=== PATIENT | female | born 1980 | race Caucasian/White ===

== ENCOUNTER → 2016-09-20 | Outpatient (CLI) | payer OTHER ==
[~2016-09-20] MED LIST: ABIL5TAB5 PO; ALBU17IN INH; ALEV220C2 PO; AMIT25TA PO; BACL10TA GT; BACL10TA2 PO; BENA25CA2 PO; BUPR150T5 PO; CELE40TA PO; CHLO125TA PO; CLAR1TAB2 PO; DILT120C79 PO; GABA-283 PO; GABA300C3 PO; GABA600T PO; HYZA100T2 PO; IMIT50TA PO; IMIT6INJ SC; INDE1CAP5 PO; K-TA10TA2 PO; LAMO10TA PO; LASI40TA PO; LEVO25TA5 PO; LORA10TA2 PO; LOSA100T PO; LOSA50TA20 PO; LOSA50TA21 PO; LYRI75CA PO; MOBI15TA PO; NORCOTAB PO; PROP60TA14 PO; REME15TA PO; ROBA750T4 PO; SYMB16INH INH; TRAZ50TA4 PO; TYLETAB14 PO; ZONI25CA2 PO; flexeril PO; vitamin d PO
--- NOTE | 2016-10-01 01:10 | ECWPNPC ---
PATIENT NAME: LILIAM SMART : 1980 GENDER: FEMALE VISIT DATE: 09/20/2016 DISCHARGE DATE: 09/20/16 1521 VISIT LOCKED DATE TIME: PHYSICIAN: JUAN GRIER RESOURCE: JUAN GRIER REASON FOR APPOINTMENT 1. FOLLOW UP-NECK HISTORY OF PRESENT ILLNESS HISTORY OF PRESENT ILLNESS: HERE FOR F/U.RATING PAIN VAS 9/10.PAIN LOCATED IN NECK AND RADIATES DOWN LEFT >RIGHT.REPORTS NO IMPROVEMENT W LYRICA 150MG TID.ROBAXIN 750MG QID HELPFUL . DENIES SIDE EFFECTS.REPORTS FLUID RETENTION LOWER EXT.PT RECENTLY CAUSED INCREASE IN PAIN SO THEY STOPPED IT AFTER 3 VISITS.HAS FAILED ON GABAPENTIN 300MG TID.DISCUSSED TRIAL OF CYMBALTA. PAIN THE PATIENT DESCRIBES THE PAIN... THE PATIENT DESCRIBES THE PAIN... THE PATIENT DESCRIBES THE PAIN... PAIN THE PATIENT DESCRIBES THE PAIN... THE PATIENT DESCRIBES THE PAIN... THE PATIENT DESCRIBES THE PAIN... FALL RISK SCREENING: SCREENING :NO FALLS IN THE PAST YEAR CURRENT MEDICATIONS TAKING ALBUTEROL SULFATE HFA 108 (90 BASE) MCG/ACT AEROSOL SOLUTION 2 PUFFS NEEDED INHALATION EVERY 4 HRS TAKING ALEVE 220 MG TABLET 1 TABLET NEEDED ORALLY EVERY 12 HRS TAKING AMITRIPTYLINE HCL 25 MG TABLET 1 TABLET AT BEDTIME ORALLY ONCE A DAY TAKING SYMBICORT 160-4.5 MCG/ACT AEROSOL 2 PUFFS INHALATION TWICE A DAY TAKING CHLORTHALIDONE 12.5 12.5MG TABLET ORAL ONCE DAILY TAKING DIPHENHYDRAMINE HCL 50 MG TABLET 1 TABLET AT BEDTIME NEEDED ORALLY ONCE A DAY TAKING LAMOTRIGINE 100 MG TABLET 1 TAB(S) IN AM & 150MG EVERY NOLAN ORALLY BID TAKING LEVOTHYROXINE SODIUM 75 MCG TABLET 1 TABLET ORALLY ONCE A DAY TAKING LOSARTAN POTASSIUM 50 MG TABLET 1 TAB(S) ORALLY TWICE A DAY TAKING LORATADINE 10 MG TABLET 1 TABLET ORALLY ONCE A DAY TAKING MELOXICAM 15 MG TABLET 1 TABLET ORALLY ONCE A DAY TAKING VITAMIN D 03526 U TABLET 1 TABLET ORALLY ONCE A WEEK TAKING ACETAMINOPHEN 500 MG TABLET 1-2 ORALLY Q8H PRN TAKING ROBAXIN-750 750 MG TABLET 1 TABLET ORALLY Q6H PRN PAIN MDD4 TAKING CYMBALTA 60 MG CAPSULE DELAYED RELEASE PARTICLES 1 CAPSULE ORALLY ONCE A DAY DISCONTINUED ZONISAMIDE 50 MG CAPSULE 1 CAPSULE ORALLY TWICE A DAY MEDICATION LIST REVIEWED AND RECONCILED WITH THE PATIENT PAST MEDICAL HISTORY PTSD HYPOTHYROID CHRONIC 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 NEW PATIENT PAIN DIARY TODAY'S VISITNOTES FROM 0-10, WHAT LEVEL IS YOUR PAIN TODAY?0 PAIN CLINIC PFS, CLERGY, PUBLIC HEALTH REFERRALS PFS REFERRAL NEEDED?NO CLERGY REFERRAL NEEDED?NO PUBLIC HEALTH REFERRAL NEEDED?NO WAS THE PROVIDER NOTIFIED OF ANY PERTINENT INFO?NO PFS REFERRAL NEEDED?NO CLERGY REFERRAL NEEDED?NO PUBLIC HEALTH REFERRAL NEEDED?NO WAS THE PROVIDER NOTIFIED OF ANY PERTINENT INFO?NO REVIEW OF SYSTEMS CONSTITUTIONAL: ANY CHANGE IN YOUR MEDICAL CONDITION? NO . CHILLS NO . FEVER NO . INFECTION: DO YOU HAVE NEW INFECTIONS? YES SINUS CONGESTION WITH PND X3-4 DAYS . DO YOU HAVE HISTORY OF MRSA? NO . MUSCULOSKELETAL: ANY NEW PATTERNS OF PAIN OR NUMBNESS? NO . GASTROENTEROLOGY: ANY NEW CHANGE IN BOWEL CONTROL? NO . GENITOURINARY: ANY NEW CHANGE IN BLADDER CONTROL? NO . IS THERE A CHANCE YOU COULD BE ? NO . HEMATOLOGY/LYMPH: DO YOU TAKE ANY BLOOD THINNERS? (FOR EXAMPLE- COUMADIN, PLAVIX, AGGRENOX, PLATEL, PRADAXA, OR XARELTO) NO . WHEN WAS YOUR LAST DOSE? DATE: TIME: . NEUROLOGY: HAVE YOU FALLEN IN THE PAST 6 MONTHS? NO . ANY NEW EXTREMITY NUMBNESS OR WEAKNESS? NO . CARDIOLOGY: DO YOU HAVE A PACEMAKER OR DEFIBRILLATOR? NO . RESPIRATORY: HAVE YOU BEEN SICK IN THE PAST WEEK? YES SINUS CONGESTION . FEVER YES . FLU LIKE SYMPTOMS? YES . COUGH BARKING, OCC. PRODUCTIVE , YELLOW SPUTUM . INTEGUMENTARY: DO YOU HAVE ANY RASHES OR OPEN SORES? NO . ALLERGIC/IMMUNO: ARE YOU ALLERGIC TO SHELLFISH OR IV DYE? NO . ANY NEW ALLERGIES? NO . PSYCHIATRIC: DO YOU HAVE THOUGHTS OF HURTING YOURSELF OR SOMEONE ELSE? NO . ARE YOU ABUSED, NEGLECTED, OR IN AN UNSAFE ENVIRONMENT? NO . ENDOCRINOLOGY: ARE YOU DIABETIC? NO . OTHER: DO YOU NEED ANY PRESCRIPTIONS? NO . IF YES, PLEASE LIST: ____ . ANY NEW PROBLEMS WITH YOUR MEDICATIONS? NO . WHEN DID YOU LAST EAT? ____ . WHEN DID YOU LAST DRINK? ____ . WHAT DID YOU LAST DRINK? ____ . NAME OF PERSON DRIVING YOU HOME? ____ . DO YOU HAVE ANY OTHER QUESTIONS OR CONCERNS NO . REVIEWED BY: PROVIDER: JAUN CRYSTAL . VITAL SIGNS WT 242.4 LBS, HT 65", BMI 40.33 INDEX, BP 143/89 MM HG, HR 79 /MIN, RR 22 /MIN, TEMP 99 F, OXYGEN SAT % 96, REVIEWED BY: AD. EXAMINATION GENERAL EXAMINATION: LUNGS:LUNG SOUNDS ARE CLEAR. HEART:HEART RATE REGULAR. MUSCULOSKELETAL:*. MUSCULOSKELETAL:*, MUSCLE STRENGTH TESTING 5/5 BILATERAL UPPER AND LOWER EXT., PAIN ELICITED WITH LIGHT PALPATION OVER CERVICAL SPINOUS PROCESSES AND ACROSS THE TRAPEZIUS MUSCLES BILATERALLY -MAINLY RIGHT SIDED. RESTRICTION OF ROM IS NOTED. . ASSESSMENTS CERVICALGIA - M54.2 (PRIMARY) GENERALIZED PAIN - R52 TREATMENT CERVICALGIA CONTINUE CYMBALTA CAPSULE DELAYED RELEASE PARTICLES, 60 MG, 1 CAPSULE, ORALLY, ONCE A DAY, 30 DAY(S), 30 CAPSULE, REFILLS 5 REFILL ROBAXIN-750 TABLET, 750 MG, 1 TABLET, ORALLY, Q6H PRN PAIN MDD4, 30 DAY(S), 120, REFILLS 5 PROCEDURE CODES FA211 ESTABILISHED PATIENT [facility] CHARGE FOLLOW UP 6 WEEKS ELECTRONICALLY SIGNED BY BONILLA ARRIAGA ON 09/30/2016 AT 01:33 PM EST DISCLAIMER : THIS IS A VISIT SUMMARY EXTRACTED FROM THE [employer] CHART. IT IS NOT A COPY OF THE [employer] PROGRESS NOTE. MTDD
== END ==
LOC: M PAIN 14:40
PROVIDERS: ATTEND Nurse Practitioner Family
DX: M54.2 Cervicalgia (principal); F43.10 Post-traumatic stress disorder, unspecified; E03.9 Hypothyroidism, unspecified; G43.909 Migraine, unspecified, not intractable, without status migrainosus; F32.9 Major depressive disorder, single episode, unspecified; F60.3 Borderline personality disorder; R00.0 Tachycardia, unspecified; Z88.0 Allergy status to penicillin; Z88.8 Allergy status to other drugs, medicaments and biological substances; Z79.1 Long term (current) use of non-steroidal anti-inflammatories (NSAID); Z79.899 Other long term (current) drug therapy

== ENCOUNTER → 2016-10-17 | Outpatient (REF) | payer OTHER | END | disposition home or self-care (01) | LOC: M SFHCWAGY 09:44 | PROVIDERS: ATTEND Nurse Practitioner Women's Health | DX: Z01.419 Encounter for gynecological examination (general) (routine) without abnormal findings (principal); Z11.51 Encounter for screening for human papillomavirus (HPV); R87.612 Low grade squamous intraepithelial lesion on cytologic smear of cervix (LGSIL) ==

== ENCOUNTER → 2016-11-01 | Outpatient (CLI) | payer OTHER ==
--- NOTE | 2016-11-08 00:37 | ECWPNPC ---
PATIENT NAME: LILIAM SMART : 1980 GENDER: FEMALE VISIT DATE: 11/01/2016 DISCHARGE DATE: 11/01/16 1517 VISIT LOCKED DATE TIME: PHYSICIAN: JUAN GRIER RESOURCE: JUAN GRIER REASON FOR APPOINTMENT 1. NECK HISTORY OF PRESENT ILLNESS HISTORY OF PRESENT ILLNESS: REPORTING INCREASE IN GENERALIZED BODY PAIN.RATING PAIN VAS 9/10.DESCRIBES PAIN ACHING AND BURNING.PAIN HAS ESCALATED THIS PAST WEEK.DENIES PRECIPITATING EVENT.DISCUSSED CONSERVATIVE TREATMENT.CURRENTLY USING CYMBALTA 60MG DAILY AND ROBAXIN. FALL RISK SCREENING: SCREENING :NO FALLS IN THE PAST YEAR CURRENT MEDICATIONS TAKING ALBUTEROL SULFATE HFA 108 (90 BASE) MCG/ACT AEROSOL SOLUTION 2 PUFFS NEEDED INHALATION EVERY 4 HRS TAKING ALEVE 220 MG TABLET 1 TABLET NEEDED ORALLY EVERY 12 HRS TAKING AMITRIPTYLINE HCL 25 MG TABLET 1 TABLET AT BEDTIME ORALLY ONCE A DAY TAKING SYMBICORT 160-4.5 MCG/ACT AEROSOL 2 PUFFS INHALATION TWICE A DAY TAKING CHLORTHALIDONE 12.5 12.5MG TABLET ORAL ONCE DAILY TAKING DIPHENHYDRAMINE HCL 50 MG TABLET 1 TABLET AT BEDTIME NEEDED ORALLY ONCE A DAY TAKING LAMOTRIGINE 100 MG TABLET 1 TABLET ORALLY BID TAKING LEVOTHYROXINE SODIUM 75 MCG TABLET 1 TABLET ORALLY ONCE A DAY TAKING LOSARTAN POTASSIUM 50 MG TABLET 1 TAB(S) ORALLY TWICE A DAY TAKING LORATADINE 10 MG TABLET 1 TABLET ORALLY ONCE A DAY TAKING MELOXICAM 15 MG TABLET 1 TABLET ORALLY ONCE A DAY TAKING VITAMIN D 98518 U TABLET 1 TABLET ORALLY ONCE A WEEK TAKING ACETAMINOPHEN 500 MG TABLET 1-2 ORALLY Q8H PRN TAKING CYMBALTA 60 MG CAPSULE DELAYED RELEASE PARTICLES 1 CAPSULE ORALLY ONCE A DAY TAKING ROBAXIN-750 750 MG TABLET 1 TABLET ORALLY Q6H PRN PAIN MDD4 MEDICATION LIST REVIEWED AND RECONCILED WITH THE PATIENT PAST MEDICAL HISTORY PTSD HYPOTHYROID CHRONIC 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 NEW PATIENT PAIN DIARY TODAY'S VISITNOTES FROM 0-10, WHAT LEVEL IS YOUR PAIN TODAY?0 PAIN CLINIC PFS, CLERGY, PUBLIC HEALTH REFERRALS PFS REFERRAL NEEDED?NO CLERGY REFERRAL NEEDED?NO PUBLIC HEALTH REFERRAL NEEDED?NO WAS THE PROVIDER NOTIFIED OF ANY PERTINENT INFO?NO PFS REFERRAL NEEDED?NO CLERGY REFERRAL NEEDED?NO PUBLIC HEALTH REFERRAL NEEDED?NO WAS THE PROVIDER NOTIFIED OF ANY PERTINENT INFO?NO REVIEW OF SYSTEMS CONSTITUTIONAL: ANY CHANGE IN YOUR MEDICAL CONDITION? NO . CHILLS NO . FEVER NO . INFECTION: DO YOU HAVE NEW INFECTIONS? NO . DO YOU HAVE HISTORY OF MRSA? NO . MUSCULOSKELETAL: ANY NEW PATTERNS OF PAIN OR NUMBNESS? NO . GASTROENTEROLOGY: ANY NEW CHANGE IN BOWEL CONTROL? NO . GENITOURINARY: ANY NEW CHANGE IN BLADDER CONTROL? NO . IS THERE A CHANCE YOU COULD BE ? NO . HEMATOLOGY/LYMPH: DO YOU TAKE ANY BLOOD THINNERS? (FOR EXAMPLE- COUMADIN, PLAVIX, AGGRENOX, PLATEL, PRADAXA, OR XARELTO) NO . WHEN WAS YOUR LAST DOSE? DATE: TIME: . NEUROLOGY: HAVE YOU FALLEN IN THE PAST 6 MONTHS? NO . ANY NEW EXTREMITY NUMBNESS OR WEAKNESS? NO . CARDIOLOGY: DO YOU HAVE A PACEMAKER OR DEFIBRILLATOR? NO . RESPIRATORY: HAVE YOU BEEN SICK IN THE PAST WEEK? NO . FEVER NO . FLU LIKE SYMPTOMS? NO . COUGH NO . INTEGUMENTARY: DO YOU HAVE ANY RASHES OR OPEN SORES? NO . ALLERGIC/IMMUNO: ARE YOU ALLERGIC TO SHELLFISH OR IV DYE? NO . ANY NEW ALLERGIES? NO . PSYCHIATRIC: DO YOU HAVE THOUGHTS OF HURTING YOURSELF OR SOMEONE ELSE? NO . ARE YOU ABUSED, NEGLECTED, OR IN AN UNSAFE ENVIRONMENT? NO . ENDOCRINOLOGY: ARE YOU DIABETIC? NO . OTHER: DO YOU NEED ANY PRESCRIPTIONS? YES CYMBALTA . IF YES, PLEASE LIST: ____ . ANY NEW PROBLEMS WITH YOUR MEDICATIONS? NO . WHEN DID YOU LAST EAT? ____ . WHEN DID YOU LAST DRINK? ____ . WHAT DID YOU LAST DRINK? ____ . NAME OF PERSON DRIVING YOU HOME? ____ . DO YOU HAVE ANY OTHER QUESTIONS OR CONCERNS YES PT NOTES INCREASED PAIN BOTH ARMS/ACROSS NECK X 4-5 DAYS. NOTES MIGRAINE LEFT EYE AREA TODAY. . REVIEWED BY: PROVIDER: JUAN CRYSTAL . VITAL SIGNS WT 241.4 LBS, HT 65", BMI 40.17 INDEX, BP 140/87 MM HG, HR 88 /MIN, RR 18 /MIN, TEMP 96.0 F, OXYGEN SAT % 98, NA INITIALS TL 1412, REVIEWED BY: MLF. EXAMINATION GENERAL EXAMINATION: LUNGS:LUNG SOUNDS ARE CLEAR. HEART:HEART RATE REGULAR. MUSCULOSKELETAL:*. MUSCULOSKELETAL:*, MUSCLE STRENGTH TESTING 5/5 BILATERAL UPPER AND LOWER EXT., PAIN ELICITED WITH LIGHT PALPATION OVER CERVICAL SPINOUS PROCESSES AND ACROSS THE TRAPEZIUS MUSCLES BILATERALLY -MAINLY RIGHT SIDED. RESTRICTION OF ROM IS NOTED. . ASSESSMENTS CERVICALGIA - M54.2 (PRIMARY) GENERALIZED PAIN - R52 TREATMENT CERVICALGIA INCREASE ALEVE TABLET, 220 MG, 2, ORALLY, EVERY 12 HRS, 30 DAY(S) REFILL CYMBALTA CAPSULE DELAYED RELEASE PARTICLES, 60 MG, 1 CAPSULE, ORALLY, ONCE A DAY, 30 DAY(S), 30 CAPSULE, REFILLS 5 CONTINUE ROBAXIN-750 TABLET, 750 MG, 1 TABLET, ORALLY, Q6H PRN PAIN MDD4 STOP MELOXICAM TABLET, 15 MG, 1 TABLET, ORALLY, ONCE A DAY START CYMBALTA CAPSULE DELAYED RELEASE PARTICLES, 30 MG, 1 CAPSULE, ORALLY, ONCE A DAY, 30 DAY(S), 30 CAPSULE, REFILLS 5 PROCEDURE CODES FA211 ESTABILISHED PATIENT [facility] CHARGE DISPOSITION & COMMUNICATION FOLLOW UP 4 WEEKS ELECTRONICALLY SIGNED BY BONILLA ARRIAGA ON 11/07/2016 AT 01:29 PM EST DISCLAIMER : THIS IS A VISIT SUMMARY EXTRACTED FROM THE [employer] CHART. IT IS NOT A COPY OF THE [employer] PROGRESS NOTE. OLIVIA
== END ==
LOC: M PAIN 14:20
PROVIDERS: ATTEND Nurse Practitioner Family
DX: Z09 Encounter for follow-up examination after completed treatment for conditions other than malignant neoplasm (principal); G89.29 Other chronic pain; M54.2 Cervicalgia; E03.9 Hypothyroidism, unspecified; G43.709 Chronic migraine without aura, not intractable, without status migrainosus; F32.9 Major depressive disorder, single episode, unspecified; F60.3 Borderline personality disorder; F43.10 Post-traumatic stress disorder, unspecified; Z88.0 Allergy status to penicillin; Z88.8 Allergy status to other drugs, medicaments and biological substances; Z79.1 Long term (current) use of non-steroidal anti-inflammatories (NSAID); Z79.899 Other long term (current) drug therapy; Z86.79 Personal history of other diseases of the circulatory system

== ENCOUNTER → 2016-11-18 | Outpatient (REF) | payer OTHER | LOC: M SFHCWAGY 12:08 | PROVIDERS: ATTEND Nurse Practitioner Women's Health | DX: R87.612 Low grade squamous intraepithelial lesion on cytologic smear of cervix (LGSIL) (principal) ==

== ENCOUNTER → 2017-01-02 | Outpatient (CLI) | payer OTHER ==
[~2017-01-02] MED LIST changes: +GABA-282 PO; -GABA300C3 PO
--- NOTE | 2017-01-14 00:24 | ECWPNPC ---
PATIENT NAME: LILIAM SMART : 1980 GENDER: FEMALE VISIT DATE: 01/02/2017 DISCHARGE DATE: 01/02/17 1426 VISIT LOCKED DATE TIME: PHYSICIAN: JUAN GRIER RESOURCE: JUAN GRIER REASON FOR APPOINTMENT 1. NECK HISTORY OF PRESENT ILLNESS HISTORY OF PRESENT ILLNESS: REPORTING INCREASE IN GENERALIZED BODY PAIN.RATING PAIN VAS 9/10.DESCRIBES PAIN ACHING AND BURNING.REPORTNG NEW ONSET OF LEFT UPPER BACK/SCAPULAR PAIN.THIS BEGAN APPROXIMATLEY 2 WEEKS AGO WITHOUT PRECIPITATING EVENT. INCREASE IN CYMBALTA FROM 60MG TO 90MG AT LAST VISIT DIDNT HELP WITH PAIN BUT FEELS IT IS HELPING MOOD.AMITRIPTYLINE 25MG HELPING AT NIGHT.ROBAXIN HASNT HELPED SINCE LEFT UPPER BACK HAS BEEN BOTHERNG HER.RATING PAIN VAS 9/10. PAIN THE PATIENT DESCRIBES THE PAIN... THE PATIENT DESCRIBES THE PAIN... FALL RISK SCREENING: SCREENING :NO FALLS IN THE PAST YEAR CURRENT MEDICATIONS TAKING ALBUTEROL SULFATE HFA 108 (90 BASE) MCG/ACT AEROSOL SOLUTION 2 PUFFS NEEDED INHALATION EVERY 4 HRS TAKING AMITRIPTYLINE HCL 25 MG TABLET 1 TABLET AT BEDTIME ORALLY ONCE A DAY TAKING SYMBICORT 160-4.5 MCG/ACT AEROSOL 2 PUFFS INHALATION TWICE A DAY TAKING CHLORTHALIDONE 12.5 12.5MG TABLET ORAL ONCE DAILY TAKING DIPHENHYDRAMINE HCL 50 MG TABLET 1 TABLET AT BEDTIME NEEDED ORALLY ONCE A DAY TAKING LAMOTRIGINE 100 MG TABLET 1 TABLET ORALLY BID TAKING LEVOTHYROXINE SODIUM 75 MCG TABLET 1 TABLET ORALLY ONCE A DAY TAKING LOSARTAN POTASSIUM 50 MG TABLET 1 TAB(S) ORALLY TWICE A DAY TAKING LORATADINE 10 MG TABLET 1 TABLET ORALLY ONCE A DAY TAKING VITAMIN D 74475 U TABLET 1 TABLET ORALLY ONCE A WEEK TAKING ACETAMINOPHEN 500 MG TABLET 1-2 ORALLY Q8H PRN TAKING CYMBALTA 60 MG CAPSULE DELAYED RELEASE PARTICLES 1 CAPSULE ORALLY ONCE A DAY IN A.M. TAKING CYMBALTA 30 MG CAPSULE DELAYED RELEASE PARTICLES 1 CAPSULE ORALLY ONCE A DAY IN P.M. TAKING ALEVE 220 MG TABLET 2 ORALLY EVERY 12 HRS TAKING ROBAXIN-750 750 MG TABLET 1 TABLET ORALLY Q6H PRN PAIN MDD4 MEDICATION LIST REVIEWED AND RECONCILED WITH THE PATIENT PAST MEDICAL HISTORY PTSD HYPOTHYROID CHRONIC 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 DEPRESSION BORDERLINE PERSONALITY DISORDER TACHYCARDIA ALLERGIES PREDNISON: SEVERE ANGER: ALLERGY PENICILLIN (FOR ALLERGIES USE ONLY): PT UNSURE: ALLERGY TRAZODONE HCL: SEVERE ANGER: ALLERGY SOCIAL HISTORY GENERAL: PAIN CLINIC PFS, CLERGY, PUBLIC HEALTH REFERRALS CLERGY REFERRAL NEEDED?NO WAS THE PROVIDER NOTIFIED OF ANY PERTINENT INFO?NO PFS REFERRAL NEEDED?NO PUBLIC HEALTH REFERRAL NEEDED?NO PATIENT: ____. REVIEW OF SYSTEMS CONSTITUTIONAL: ANY CHANGE IN YOUR MEDICAL CONDITION? NO . RECENT ILLNESS DENIES . CHILLS NO . FEVER NO . WEIGHT LOSS DENIES . INFECTION: DO YOU HAVE NEW INFECTIONS? NO . DO YOU HAVE HISTORY OF MRSA? NO . MUSCULOSKELETAL: ANY NEW PATTERNS OF PAIN OR NUMBNESS? YES, CONSTANT MUSCLE SPASMS AND POPPING SENSATION LEFT SHOULDER BLADE SINCE APPROX.12/02 . GASTROENTEROLOGY: ANY NEW CHANGE IN BOWEL CONTROL? NO . GENITOURINARY: ANY NEW CHANGE IN BLADDER CONTROL? NO . IS THERE A CHANCE YOU COULD BE ? NO . HEMATOLOGY/LYMPH: DO YOU TAKE ANY BLOOD THINNERS? (FOR EXAMPLE- COUMADIN, PLAVIX, AGGRENOX, PLATEL, PRADAXA, OR XARELTO) NO . WHEN WAS YOUR LAST DOSE? DATE: TIME: . NEUROLOGY: HAVE YOU FALLEN IN THE PAST 6 MONTHS? NO . ANY NEW EXTREMITY NUMBNESS OR WEAKNESS? NO . CARDIOLOGY: DO YOU HAVE A PACEMAKER OR DEFIBRILLATOR? NO . CHEST PAIN DENIES . SHORTNESS OF BREATH DENIES . RESPIRATORY: HAVE YOU BEEN SICK IN THE PAST WEEK? NO . FEVER NO . FLU LIKE SYMPTOMS? NO . COUGH NO, DENIES . SHORTNESS OF BREATH DENIES . INTEGUMENTARY: DO YOU HAVE ANY RASHES OR OPEN SORES? NO . ALLERGIC/IMMUNO: ARE YOU ALLERGIC TO SHELLFISH OR IV DYE? NO . ANY NEW ALLERGIES? NO . PSYCHIATRIC: DO YOU HAVE THOUGHTS OF HURTING YOURSELF OR SOMEONE ELSE? NO . ARE YOU ABUSED, NEGLECTED, OR IN AN UNSAFE ENVIRONMENT? NO . ENDOCRINOLOGY: ARE YOU DIABETIC? NO . OTHER: DO YOU NEED ANY PRESCRIPTIONS? YES . IF YES, PLEASE LIST: AMITRIPTYLINE . ANY NEW PROBLEMS WITH YOUR MEDICATIONS? NO . WHEN DID YOU LAST EAT? ____ . WHEN DID YOU LAST DRINK? ____ . WHAT DID YOU LAST DRINK? ____ . NAME OF PERSON DRIVING YOU HOME? ____ . DO YOU HAVE ANY OTHER QUESTIONS OR CONCERNS NO . REVIEWED BY: PROVIDER: JUAN CRYSTAL . VITAL SIGNS WT 252.4 LBS, HT 65", BMI 42.00 INDEX, BP 135/77 MM HG, HR 83 /MIN, RR 18 /MIN, TEMP 97.0 F, OXYGEN SAT % 95%, NA INITIALS SC 13:25, REVIEWED BY: AD. EXAMINATION GENERAL EXAMINATION: LUNGS:LUNG SOUNDS ARE CLEAR. HEART:HEART RATE REGULAR. MUSCULOSKELETAL:*, MUSCLE STRENGTH TESTING 5/5 BUE. TRIGGER POINTS:LEFT UPPER BACK/NECK AND SCAPULAR REGION. DIAGNOSTIC: . ASSESSMENTS CERVICALGIA - M54.2 (PRIMARY) GENERALIZED PAIN - R52 MYALGIA - M79.1 TREATMENT CERVICALGIA CONTINUE CYMBALTA CAPSULE DELAYED RELEASE PARTICLES, 60 MG, 1 CAPSULE, ORALLY, ONCE A DAY IN A.M. CONTINUE CYMBALTA CAPSULE DELAYED RELEASE PARTICLES, 30 MG, 1 CAPSULE, ORALLY, ONCE A DAY IN P.M. CONTINUE ROBAXIN-750 TABLET, 750 MG, 1 TABLET, ORALLY, Q6H PRN PAIN MDD4 START TRAMADOL HCL TABLET, 50 MG, 1, ORALLY, EVERY 6 HRS PRN MDD4, 30 DAY(S), 60, REFILLS 1 TRIGGER POINT 1-2 JUAN ENRIQUEZ 01/02/2017 2:08:25 PM > LEFT UPPER BACK/NECK/SCAPULAR NOTES: TRIGGER POINT INJECTION MATERIAL WAS PRINTED,TRIGGER POINT INJECTION: YOUR EXPERIENCE MATERIAL WAS PRINTED. GENERALIZED PAIN TRIGGER POINT 1-2 JUAN ENRIQUEZ 01/02/2017 2:08:25 PM > LEFT UPPER BACK/NECK/SCAPULAR MYALGIA TRIGGER POINT 1-2 JUAN ENRIQUEZ 01/02/2017 2:08:25 PM > LEFT UPPER BACK/NECK/SCAPULAR PREVENTIVE MEDICINE PAIN CLINIC TEACHING: MEDICATIONS PRINTED INFORMATION ON TRAMADOL GIVEN TO AND EXPLOINED TO PT. AND SHE VERBALIZED UNDERSTANDING. PROCEDURE TEACHING PRINTED INFORMATION ON TPI GIVEN TO AND PROCEDURE EXPLAINED TO PT. AND SHE VERBALIZED UNDERSTANDING. PRE-PROCEDURE INSTRUCTIONS REVIEWED WITH PT AND SHE VERBALIZED UNDERSTANDIONG. AD. PROCEDURE CODES FA211 ESTABILISHED PATIENT [facility] CHARGE DISPOSITION & COMMUNICATION FOLLOW UP 2WK POST (REASON: LEFT UPPER BACK/NECK/SCAPULAR) ELECTRONICALLY SIGNED BY BONILLA ARRIAGA ON 01/13/2017 AT 12:34 PM EDT DISCLAIMER : THIS IS A VISIT SUMMARY EXTRACTED FROM THE [employer] CHART. IT IS NOT A COPY OF THE [employer] PROGRESS NOTE. OLIVIA
== END ==
LOC: M PAIN 14:20
PROVIDERS: ATTEND Nurse Practitioner Family
DX: M54.2 Cervicalgia (principal); M79.1 Myalgia; F43.10 Post-traumatic stress disorder, unspecified; E03.9 Hypothyroidism, unspecified; G43.709 Chronic migraine without aura, not intractable, without status migrainosus; F32.9 Major depressive disorder, single episode, unspecified; F60.3 Borderline personality disorder; R00.0 Tachycardia, unspecified; Z79.1 Long term (current) use of non-steroidal anti-inflammatories (NSAID); Z79.899 Other long term (current) drug therapy; Z88.0 Allergy status to penicillin; Z88.8 Allergy status to other drugs, medicaments and biological substances

== ENCOUNTER → 2017-02-25 | Outpatient (CLI) | payer OTHER ==
[~2017-02-25] MED LIST changes: +BUPIVACAINE HCL 0.25% 10 ML VIAL As Ordered ONE; +BUPIVACAINE HCL 0.25% 30 ML VIAL As Ordered ONE; +TRIAMCINOLONE ACETONIDE SUSP 40 MG/ML VIAL (J3301) As Ordered ONE; +diazePAM 5 MG TAB As Ordered ONE; +oxyCODONE 5MG TAB As Ordered ONE
== END ==
LOC: M PAIN 08:30
PROVIDERS: ATTEND Anesthesiology
DX: G89.29 Other chronic pain (principal); M79.1 Myalgia; F43.10 Post-traumatic stress disorder, unspecified; E03.9 Hypothyroidism, unspecified; G43.709 Chronic migraine without aura, not intractable, without status migrainosus; F32.9 Major depressive disorder, single episode, unspecified; F60.3 Borderline personality disorder; R00.0 Tachycardia, unspecified; Z88.0 Allergy status to penicillin; Z88.8 Allergy status to other drugs, medicaments and biological substances; Z79.891 Long term (current) use of opiate analgesic; Z79.1 Long term (current) use of non-steroidal anti-inflammatories (NSAID); Z79.899 Other long term (current) drug therapy

== ENCOUNTER → 2017-03-24 | Outpatient (CLI) | payer MEDICAID, OTHER ==
[~2017-03-24] MED LIST changes: +ABIL1TAB11 PO; -ABIL5TAB5 PO; +BREO1INH INH; -BUPIVACAINE HCL 0.25% 10 ML VIAL As Ordered ONE; -BUPIVACAINE HCL 0.25% 30 ML VIAL As Ordered ONE; +CYMB60CA3 PO; +DULO30CA PO; -LOSA100T PO; +LOSA100T8 PO; -LOSA50TA21 PO; +LOSA50TA5 PO; +MECL-68 PO; +MOBI4TAB PO; +QUET5TAB PO; +TIZA4CAP3 PO; +TRAM50TA2 PO; +TRAZ50TA11 PO; -TRAZ50TA4 PO; -TRIAMCINOLONE ACETONIDE SUSP 40 MG/ML VIAL (J3301) As Ordered ONE; -diazePAM 5 MG TAB As Ordered ONE; -oxyCODONE 5MG TAB As Ordered ONE
--- NOTE | 2017-03-26 00:13 | ECWPNPC ---
PATIENT NAME: LILIAM SMART : 1980 GENDER: FEMALE VISIT DATE: 03/24/2017 DISCHARGE DATE: 03/24/17 1449 VISIT LOCKED DATE TIME: PHYSICIAN: JUAN GRIER RESOURCE: JUAN GRIER REASON FOR APPOINTMENT 1. NECK HISTORY OF PRESENT ILLNESS HISTORY OF PRESENT ILLNESS: HERE FOR POST PROCEDURE F/U.HAD TPI LEFT SHOULDER AND UPPER BACK 02-25-17.NO IMPROVEMENT POST PROCEDURE.RATING PAIN VAS 9/10.HAVING GENERALIZED UPPER BODY PAIN BUT ARMS SEEMS TO BE THE PROBLEM L>R.REPORTS SPASM TYPE PAIN. PAIN THE PATIENT DESCRIBES THE PAIN... FALL RISK SCREENING: SCREENING :NO FALLS IN THE PAST YEAR CURRENT MEDICATIONS TAKING ALBUTEROL SULFATE HFA 108 (90 BASE) MCG/ACT AEROSOL SOLUTION 2 PUFFS NEEDED INHALATION EVERY 4 HRS TAKING SYMBICORT 160-4.5 MCG/ACT AEROSOL 2 PUFFS INHALATION TWICE A DAY TAKING CHLORTHALIDONE 12.5 12.5MG TABLET ORAL ONCE DAILY TAKING LAMOTRIGINE 100 MG TABLET 1 TABLET ORALLY BID TAKING LEVOTHYROXINE SODIUM 75 MCG TABLET 1 TABLET ORALLY ONCE A DAY TAKING LOSARTAN POTASSIUM 50 MG TABLET 1 TAB(S) ORALLY TWICE A DAY TAKING LORATADINE 10 MG TABLET 1 TABLET ORALLY ONCE A DAY TAKING VITAMIN D 10287 U TABLET 1 TABLET ORALLY ONCE A WEEK TAKING ACETAMINOPHEN 500 MG TABLET 1-2 ORALLY Q8H PRN TAKING ALEVE 220 MG TABLET 2 ORALLY EVERY 12 HRS TAKING CYMBALTA 60 MG CAPSULE DELAYED RELEASE PARTICLES 1 CAPSULE ORALLY ONCE A DAY IN A.M. TAKING CYMBALTA 30 MG CAPSULE DELAYED RELEASE PARTICLES 1 CAPSULE ORALLY ONCE A DAY IN P.M. TAKING ROBAXIN-750 750 MG TABLET 1 TABLET ORALLY Q6H PRN PAIN MDD4 TAKING TRAMADOL HCL 50 MG TABLET 1 ORALLY EVERY 6 HRS PRN MDD4 TAKING AMITRIPTYLINE HCL 25 MG TABLET 1 TABLET AT BEDTIME ORALLY BEFORE BEDTIME NOT-TAKING DIPHENHYDRAMINE HCL 50 MG TABLET 1 TABLET AT BEDTIME NEEDED ORALLY ONCE A DAY, NOTES: 02-13-17 MEDICATION LIST REVIEWED AND RECONCILED WITH THE PATIENT PAST MEDICAL HISTORY PTSD HYPOTHYROID CHRONIC 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 BMI CARE GOAL FOLLOW-UP ABOVE NORMAL BMI FOLLOW-UPDIETARY NEEDS EDUCATION, GIVING ENCOURAGEMENT TO EXERCISE, WEIGHT MONITORING CAFFEINE CAFFEINE USE?YES HOW OFTEN AND HOW MUCH? 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 DIET: REGULAR. EXERCISE: WALKS 1/2 MILE DAILY. MARITAL STATUS: SINGLE. OTHERS AT HOME: CHILD. LANGUAGE MALTESE. LEARNING BARRIERS / SPECIAL NEEDS BARRIERS TO LEARNING?NO HEARING IMPAIRED?NO VISION IMPAIRED?YES :CORRECTIVE LENSES COGNITIVELY IMPAIRED?NO READINESS TO LEARN?YES LEARNING PREFERENCES?NO LEARNING CAPABILITIES PRESENT?YES EMOTIONAL BARRIERS?NO SPECIAL DEVICES?NO NEW PATIENT PAIN DIARY TODAY'S VISIT NOTES, FROM 0-10, WHAT LEVEL IS YOUR PAIN TODAY? 0. PAIN CLINIC PFS, CLERGY, PUBLIC HEALTH REFERRALS PFS REFERRAL NEEDED?NO CLERGY REFERRAL NEEDED?NO PUBLIC HEALTH REFERRAL NEEDED?NO HAS THE PATIENT BEEN EDUCATED REGARDING HIS/HER PLAN OF CARE?YES HAS THE PATIENT BEEN EDUCATED REGARDING PAIN, THE RISK FOR PAIN, THE IMPORTANCE OF EFFECTIVE PAIN MANAGEMENT, AND THE PAIN ASSESSMENT PROCESS?YES REVIEW OF SYSTEMS REVIEWED BY: PROVIDER: JUAN CRYSTAL . CONSTITUTIONAL: ANY CHANGE IN YOUR MEDICAL CONDITION? NO . CHILLS NO . FEVER NO . INFECTION: DO YOU HAVE NEW INFECTIONS? NO . DO YOU HAVE HISTORY OF MRSA? NO . MUSCULOSKELETAL: ANY NEW PATTERNS OF PAIN OR NUMBNESS? NO . GASTROENTEROLOGY: ANY NEW CHANGE IN BOWEL CONTROL? NO . GENITOURINARY: ANY NEW CHANGE IN BLADDER CONTROL? NO . IS THERE A CHANCE YOU COULD BE ? NO . HEMATOLOGY/LYMPH: DO YOU TAKE ANY BLOOD THINNERS? (FOR EXAMPLE- COUMADIN, PLAVIX, AGGRENOX, PLATEL, PRADAXA, OR XARELTO) NO . WHEN WAS YOUR LAST DOSE? DATE: TIME: . NEUROLOGY: HAVE YOU FALLEN IN THE PAST 6 MONTHS? NO . ANY NEW EXTREMITY NUMBNESS OR WEAKNESS? NO . CARDIOLOGY: DO YOU HAVE A PACEMAKER OR DEFIBRILLATOR? NO . RESPIRATORY: HAVE YOU BEEN SICK IN THE PAST WEEK? NO . FEVER NO . FLU LIKE SYMPTOMS? NO . COUGH NO . INTEGUMENTARY: DO YOU HAVE ANY RASHES OR OPEN SORES? NO . ALLERGIC/IMMUNO: ARE YOU ALLERGIC TO SHELLFISH OR IV DYE? NO . ANY NEW ALLERGIES? NO . PSYCHIATRIC: DO YOU HAVE THOUGHTS OF HURTING YOURSELF OR SOMEONE ELSE? NO . ARE YOU ABUSED, NEGLECTED, OR IN AN UNSAFE ENVIRONMENT? NO . ENDOCRINOLOGY: ARE YOU DIABETIC? NO . OTHER: DO YOU NEED ANY PRESCRIPTIONS? NO . IF YES, PLEASE LIST: ____ . ANY NEW PROBLEMS WITH YOUR MEDICATIONS? NO . WHEN DID YOU LAST EAT? ____ . WHEN DID YOU LAST DRINK? ____ . WHAT DID YOU LAST DRINK? ____ . NAME OF PERSON DRIVING YOU HOME? ____ . DO YOU HAVE ANY OTHER QUESTIONS OR CONCERNS NO . VITAL SIGNS WT 253 LBS, HT 65", BMI 42.10 INDEX, BP 157/100 MM HG, HR 84 /MIN, RR 18 /MIN, TEMP 97.6 F, OXYGEN SAT % 99%, REVIEWED BY: CS (DONE AT 1340). EXAMINATION GENERAL EXAMINATION: LUNGS:LUNG SOUNDS ARE CLEAR. HEART:HEART RATE REGULAR. MUSCULOSKELETAL:*, MUSCLE STRENGTH TESTING 5/5 BUE. TRIGGER POINTS:LEFT UPPER BACK/NECK AND SCAPULAR REGION.TENDERNESS OVER CERVICAL AXIS AND CERVICAL PARASPINAL. DIAGNOSTIC:MRI C-SPINE- 3-24-15- REVIEWED. ASSESSMENTS CERVICAL DISC DISPLACEMENT - M50.20 (PRIMARY) CERVICAL RADICULOPATHY - M54.12 TREATMENT CERVICAL DISC DISPLACEMENT CONTINUE CYMBALTA CAPSULE DELAYED RELEASE PARTICLES, 60 MG, 1 CAPSULE, ORALLY, ONCE A DAY IN A.M. CONTINUE CYMBALTA CAPSULE DELAYED RELEASE PARTICLES, 30 MG, 1 CAPSULE, ORALLY, ONCE A DAY IN P.M. STOP ROBAXIN-750 TABLET, 750 MG, 1 TABLET, ORALLY, Q6H PRN PAIN MDD4 REFILL TRAMADOL HCL TABLET, 50 MG, 1, ORALLY, EVERY 6 HRS PRN MDD4, 30 DAY(S), 60, REFILLS 1 CONTINUE AMITRIPTYLINE HCL TABLET, 25 MG, 1 TABLET AT BEDTIME, ORALLY, BEFORE BEDTIME START TIZANIDINE HCL TABLET, 4 MG, 1 TABLET NEEDED, ORALLY, THREE TIMES A DAY, 30 DAY(S), 45, REFILLS 1 NOTES: LINNETTE C4/5,CERVICAL EPIDURAL INJECTION: YOUR EXPERIENCE MATERIAL WAS PRINTED,CERVICAL EPIDURAL INJECTION MATERIAL WAS PRINTEDTIZANIDINE INFORMATION GIVEN. PREVENTIVE MEDICINE PAIN CLINIC TEACHING: MEDICATIONS TIZANIDINE INFORMATION GIVEN. QUESTIONS ANSWERED AND PATIENT VERBALIZES UNDERSTANDING.. PROCEDURE TEACHING PRE-PROCEDURE INFORMATION GIVEN. QUESTIONS ANSWERED AND VERBALIZES UNDERSTANDING.. PROCEDURE CODES FA211 ESTABILISHED PATIENT [facility] CHARGE DISPOSITION & COMMUNICATION FOLLOW UP 2WK POST (REASON: LINNETTE C4/5) ELECTRONICALLY SIGNED BY BONILLA ARRIAGA ON 03/25/2017 AT 10:58 AM EDT DISCLAIMER : THIS IS A VISIT SUMMARY EXTRACTED FROM THE [employer] CHART. IT IS NOT A COPY OF THE [employer] PROGRESS NOTE. OLIVIA
== END ==
LOC: M PAIN 14:20
PROVIDERS: ATTEND Nurse Practitioner Family
DX: M50.20 Other cervical disc displacement, unspecified cervical region (principal); M54.12 Radiculopathy, cervical region; Z79.891 Long term (current) use of opiate analgesic; Z79.899 Other long term (current) drug therapy; Z88.0 Allergy status to penicillin; Z88.8 Allergy status to other drugs, medicaments and biological substances

== ENCOUNTER → 2017-04-04 | Outpatient (CLI) | payer MEDICAID ==
[~2017-04-04] MED LIST changes: +ISOVUE-M 300 61% 15ML VIAL (Q9967) As Ordered ONE; +LIDOCAINE 1% SDV INJ 30 ML VIAL As Ordered ONE; +diazePAM 5 MG TAB As Ordered ONE; +methylPREDNISolone SUSP 40 MG/ML (DEPO-medrol) VIAL (J1030) As Ordered ONE; +oxyCODONE 5MG TAB As Ordered ONE
--- NOTE | 2017-04-04 15:31 | REP ---
Partial cervical spine series: Two views. History: Injection procedure for pain. 6 seconds of fluoroscopy time is reported. Findings: A sequence of two last image hold fluoro spot radiographs of the cervicothoracic junction document needle position and contrast injection associated with cervical epidural injection procedure. Signed by Trent Verde MD 04/04/2017 04:34 P
--- NOTE | 2017-04-13 23:30 | ECWPNPC ---
PATIENT NAME: LILIAM SMART : 1980 GENDER: FEMALE VISIT DATE: 04/04/2017 DISCHARGE DATE: 04/04/17 1342 VISIT LOCKED DATE TIME: PHYSICIAN: DOTTIE MCINTYRE RESOURCE: DOTTIE MCINTYRE REASON FOR APPOINTMENT 1. LINNETTE C4/5 HISTORY OF PRESENT ILLNESS HISTORY OF PRESENT ILLNESS: PAIN THE PATIENT DESCRIBES THE PAIN... FALL RISK SCREENING: SCREENING :NO FALLS IN THE PAST YEAR CURRENT MEDICATIONS TAKING ALBUTEROL SULFATE HFA 108 (90 BASE) MCG/ACT AEROSOL SOLUTION 2 PUFFS NEEDED INHALATION EVERY 4 HRS, NOTES: 04-03-17 TAKING SYMBICORT 160-4.5 MCG/ACT AEROSOL 2 PUFFS INHALATION TWICE A DAY, NOTES: 04-03-17 TAKING CHLORTHALIDONE 12.5 12.5MG TABLET ORAL ONCE DAILY, NOTES: 04-03-17 AM TAKING LAMOTRIGINE 100 MG TABLET 1 TABLET ORALLY BID, NOTES: 04-03-172099 TAKING LEVOTHYROXINE SODIUM 75 MCG TABLET 1 TABLET ORALLY ONCE A DAY, NOTES: 04-03-17 AM TAKING LOSARTAN POTASSIUM 50 MG TABLET 1 TAB(S) ORALLY TWICE A DAY, NOTES: 04-03-172099 TAKING LORATADINE 10 MG TABLET 1 TABLET ORALLY ONCE A DAY, NOTES: 04-03-17 AM TAKING VITAMIN D 53522 U TABLET 1 TABLET ORALLY ONCE A WEEK, NOTES: WEEK AGO TAKING ACETAMINOPHEN 500 MG TABLET 1-2 ORALLY Q8H PRN, NOTES: NONE TAKING ALEVE 220 MG TABLET 2 ORALLY EVERY 12 HRS, NOTES: 04-03-172099 TAKING CYMBALTA 60 MG CAPSULE DELAYED RELEASE PARTICLES 1 CAPSULE ORALLY ONCE A DAY IN A.M., NOTES: 04-03-17 AM TAKING CYMBALTA 30 MG CAPSULE DELAYED RELEASE PARTICLES 1 CAPSULE ORALLY ONCE A DAY IN P.M., NOTES: 04-03-172099 TAKING TRAMADOL HCL 50 MG TABLET 1 ORALLY EVERY 6 HRS PRN MDD4, NOTES: 04-03-172099 TAKING AMITRIPTYLINE HCL 25 MG TABLET 1 TABLET AT BEDTIME ORALLY BEFORE BEDTIME, NOTES: 04-03-172099 TAKING TIZANIDINE HCL 4 MG TABLET 1 TABLET NEEDED ORALLY THREE TIMES A DAY, NOTES: 04-03-172099 NOT-TAKING DIPHENHYDRAMINE HCL 50 MG TABLET 1 TABLET AT BEDTIME NEEDED ORALLY ONCE A DAY, NOTES: 02-13-17 MEDICATION LIST REVIEWED AND RECONCILED WITH THE PATIENT PAST MEDICAL HISTORY PTSD HYPOTHYROID CHRONIC 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 CONSTITUTIONAL: ANY CHANGE IN YOUR MEDICAL CONDITION? NO . CHILLS NO . FEVER NO . INFECTION: DO YOU HAVE NEW INFECTIONS? NO . DO YOU HAVE HISTORY OF MRSA? NO . MUSCULOSKELETAL: ANY NEW PATTERNS OF PAIN OR NUMBNESS? NO . GASTROENTEROLOGY: ANY NEW CHANGE IN BOWEL CONTROL? NO . GENITOURINARY: ANY NEW CHANGE IN BLADDER CONTROL? NO . IS THERE A CHANCE YOU COULD BE ? NO . HEMATOLOGY/LYMPH: DO YOU TAKE ANY BLOOD THINNERS? (FOR EXAMPLE- COUMADIN, PLAVIX, AGGRENOX, PLATEL, PRADAXA, OR XARELTO) NO . WHEN WAS YOUR LAST DOSE? DATE: TIME: . NEUROLOGY: HAVE YOU FALLEN IN THE PAST 6 MONTHS? NO . ANY NEW EXTREMITY NUMBNESS OR WEAKNESS? NO . CARDIOLOGY: DO YOU HAVE A PACEMAKER OR DEFIBRILLATOR? NO . RESPIRATORY: HAVE YOU BEEN SICK IN THE PAST WEEK? NO . FEVER NO . FLU LIKE SYMPTOMS? NO . COUGH NO . INTEGUMENTARY: DO YOU HAVE ANY RASHES OR OPEN SORES? NO . ALLERGIC/IMMUNO: ARE YOU ALLERGIC TO SHELLFISH OR IV DYE? NO . ANY NEW ALLERGIES? NO . PSYCHIATRIC: DO YOU HAVE THOUGHTS OF HURTING YOURSELF OR SOMEONE ELSE? NO . ARE YOU ABUSED, NEGLECTED, OR IN AN UNSAFE ENVIRONMENT? NO . ENDOCRINOLOGY: ARE YOU DIABETIC? NO . OTHER: DO YOU NEED ANY PRESCRIPTIONS? NO . IF YES, PLEASE LIST: ____ . ANY NEW PROBLEMS WITH YOUR MEDICATIONS? NO . WHEN DID YOU LAST EAT? 04-03-17 7:30 PM . WHEN DID YOU LAST DRINK? 04-04-17 8:45 . WHAT DID YOU LAST DRINK? WATER . NAME OF PERSON DRIVING YOU HOME? ABI . DO YOU HAVE ANY OTHER QUESTIONS OR CONCERNS NO . VITAL SIGNS WT 253.4 LBS, HT 65", BMI 42.16 INDEX, BP 150/97 MM HG, HR 71 /MIN, RR 16 /MIN, TEMP 97.7 F, OXYGEN SAT % 100%, NA INITIALS TL 1104, REVIEWED BY: CM. ASSESSMENTS CERVICAL DISC DISORDER WITH RADICULOPATHY, CERVICOTHORACIC REGION - M50.13 (PRIMARY) PROCEDURES PN CERVICAL EPIDURAL PRE PROCEDURE DIAGNOSIS CERVICAL DISC DISORDER WITH RADICULOPATHY POST PROCEDURE DIAGNOSIS CERVICAL DISC DISORDER WITH RADICULOPATHY PROCEDURE CERVICAL EPIDURAL STEROID INJECTION UNDER FLUOROSCOPIC GUIDANCE SURGEON DR. DOTTIE MCINTYRE DIRECTOR OF PRIMARY NONE ANESTHESIA LOCAL PRE PROCEDURE NOTE THE PATIENT HAS A HISTORY OF CHRONIC CERVICAL PAIN. I EVALUATE THE PATIENT AND REVIEWED THE CHART. I WENT OVER THE RISKS, ALTERNATIVES, AND BENEFITS ASSOCIATED WITH THIS PROCEDURE. THE PATIENT WOULD LIKE TO PROCEED AND GIVE CONSENT TO PERFORMED THE PROCEDURE. THE PATIENT DENIES UNEXPLAINABLE WEIGHT LOSS, FEVER, CHILLS, OR NEW CHANGES IN URINARY OR BOWEL CONTROL DESCRIPTION OF PROCEDURE THE PATIENT WAS BROUGHT TO THE PROCEDURE ROOM AND PLACED IN THE PRONE POSITION. THE CERVICOTHORACIC AREA WAS CLEANED WITH BETADINE SOLUTION AND DRAPED ASEPTICALLY. THE PROCEDURE WAS DONE UNDER STERILE CONDITIONS. I CHECKED LATERALITY AND THE LEVEL WHERE THE PROCEDURE WAS GOING TO BE PERFORMED WITH THE PATIENT AND THE SUPPORTING STAFF AT THE MOMENT OF THE TIME OUT IN THE PROCEDURE ROOM. UNDER FLUOROSCOPIC GUIDANCE, THE TARGET WAS SELECTED AT THE INTERLAMINAR LEVEL OF C7-T1. LIDOCAINE WAS USED TO NUMB THE SKIN AND THE SUBCUTANEOUS TISSUE BELOW IT. EPIDURAL TUOHY NEEDLE 17-GAUGE WAS ADVANCED UNDER FLUOROSCOPIC GUIDANCE AND FOLLOWING PATIENT FEEDBACK UNTIL THE EPIDURAL SPACE WAS REACHED 6 CM DEEP INTO THE SKIN BY THE LOSS OF RESISTANCE TECHNIQUE. ISOVUE M DYE 30%, 0.25 ML, WAS INJECTED SHOWING ADEQUATE SPREAD OF THE DYE. THEN, A SOLUTION OF 3 ML OF NORMAL SALINE WITH DEPO-MEDROL 60 MG WAS INJECTED SLOWLY FOLLOWING PATIENT FEEDBACK. THERE WAS NO EVIDENCE OF BLOOD, PARESTHESIA OR CEREBROSPINAL FLUID DURING THE PROCEDURE. THE PATIENT WAS SENT TO THE RECOVERY ROOM. THE PATIENT WAS MOVING THE EXTREMITIES AND DOING WELL. THERE WAS NO COMPLICATION DURING THE PROCEDURE. FLUOROSCOPY TIME WAS 6 SECONDS POST PROCEDURE NOTE THE PATIENT WILL BE SEEN IN A FOLLOW UP IN THE NEXT FEW WEEKS. INSTRUCTIONS WERE GIVEN, QUESTIONS WERE ANSWERED, AND THE PATIENT EXPRESSED UNDERSTANDING AND AGREES WITH THE PLAN. I, WILL CHAMPION, DOCUMENTED THE ABOVE INFORMATION ACTING A SCRIBE FOR DR. MCINTYRE. I HAVE REVIEWED THE ABOVE DOCUMENT, WRITTEN BY WILL SNYDER AND I VERIFY THAT IT IS ACCURATE DIAGNOSTIC IMAGING [facility] FLUORO GUIDE SPINE INJECTION (PAIN)[id number] PROCEDURE CODES 13342 CERVICAL/THORACIC W/ IMAGING 6045F RADXPS IN END [id number] PXD DISPOSITION & COMMUNICATION FOLLOW UP 3 WEEKS ELECTRONICALLY SIGNED BY DOTTIE MCINTYRE MD ON 04/13/2017 AT 08:01 PM EDT DISCLAIMER : THIS IS A VISIT SUMMARY EXTRACTED FROM THE [employer] CHART. IT IS NOT A COPY OF THE [employer] PROGRESS NOTE. MTDD
== END ==
LOC: M PAIN 11:00
PROVIDERS: ATTEND Anesthesiology
DX: G89.29 Other chronic pain (principal); M50.13 Cervical disc disorder with radiculopathy, cervicothoracic region; F43.10 Post-traumatic stress disorder, unspecified; G43.709 Chronic migraine without aura, not intractable, without status migrainosus; F32.9 Major depressive disorder, single episode, unspecified; F60.3 Borderline personality disorder; R00.0 Tachycardia, unspecified; Z88.0 Allergy status to penicillin; Z88.8 Allergy status to other drugs, medicaments and biological substances; Z79.891 Long term (current) use of opiate analgesic; Z79.1 Long term (current) use of non-steroidal anti-inflammatories (NSAID); Z79.899 Other long term (current) drug therapy
CPT/HCPCS: 62321; J1030; Q9967

== ENCOUNTER → 2017-04-18 | Outpatient (CLI) | payer OTHER, MEDICAID ==
[~2017-04-18] MED LIST changes: -ISOVUE-M 300 61% 15ML VIAL (Q9967) As Ordered ONE; -LIDOCAINE 1% SDV INJ 30 ML VIAL As Ordered ONE; -diazePAM 5 MG TAB As Ordered ONE; -methylPREDNISolone SUSP 40 MG/ML (DEPO-medrol) VIAL (J1030) As Ordered ONE; -oxyCODONE 5MG TAB As Ordered ONE
--- NOTE | 2017-05-21 02:58 | ECWPNPC ---
PATIENT NAME: LILIAM SMART : 1980 GENDER: FEMALE VISIT DATE: 04/18/2017 DISCHARGE DATE: 04/18/17 1433 VISIT LOCKED DATE TIME: PHYSICIAN: JUAN GRIER RESOURCE: JUAN GRIER REASON FOR APPOINTMENT 1. POST LINNETTE HISTORY OF PRESENT ILLNESS HISTORY OF PRESENT ILLNESS: HERE FOR POST PROCEDURE F/U.HAD LINNETTE ON 04-04-17.REPORTS NO IMPROVEMENT IN PAIN AND SOME AGGREVATION.RATING PAIN VAS 9/10.DESCTIBES PAINAS CONSTANT BURNING AND ACHING PAIN WITH PAIN EXTENDING INTO BOTH UPPER AND LOWER EXTREMITIES.FINDS CYMBALTA,TRAMADOL AND AMITRIPTYLINE INEFFECTIVE.DOES REPORT SOME IMPROVEMENT WITH TIZANIDINE.DISCUSSED MEDICATION AND TREATMENT OPTIONS. PAIN THE PATIENT DESCRIBES THE PAIN... FALL RISK SCREENING: SCREENING :NO FALLS IN THE PAST YEAR CURRENT MEDICATIONS TAKING ALBUTEROL SULFATE HFA 108 (90 BASE) MCG/ACT AEROSOL SOLUTION 2 PUFFS NEEDED INHALATION EVERY 4 HRS TAKING SYMBICORT 160-4.5 MCG/ACT AEROSOL 2 PUFFS INHALATION TWICE A DAY TAKING CHLORTHALIDONE 12.5 12.5MG TABLET ORAL ONCE DAILY TAKING LAMOTRIGINE 100 MG TABLET 1 TABLET ORALLY BID TAKING LEVOTHYROXINE SODIUM 75 MCG TABLET 1 TABLET ORALLY ONCE A DAY TAKING LOSARTAN POTASSIUM 50 MG TABLET 1 TAB(S) ORALLY TWICE A DAY TAKING LORATADINE 10 MG TABLET 1 TABLET ORALLY ONCE A DAY TAKING VITAMIN D 83942 U TABLET 1 TABLET ORALLY ONCE A WEEK TAKING ACETAMINOPHEN 500 MG TABLET 1-2 ORALLY Q8H PRN TAKING ALEVE 220 MG TABLET 2 ORALLY EVERY 12 HRS TAKING CYMBALTA 60 MG CAPSULE DELAYED RELEASE PARTICLES 1 CAPSULE ORALLY ONCE A DAY IN A.M. TAKING CYMBALTA 30 MG CAPSULE DELAYED RELEASE PARTICLES 1 CAPSULE ORALLY ONCE A DAY IN P.M. 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 CONSTITUTIONAL: ANY CHANGE IN YOUR MEDICAL CONDITION? NO . CHILLS NO . FEVER NO . INFECTION: DO YOU HAVE NEW INFECTIONS? NO . DO YOU HAVE HISTORY OF MRSA? NO . MUSCULOSKELETAL: ANY NEW PATTERNS OF PAIN OR NUMBNESS? NO . GASTROENTEROLOGY: ANY NEW CHANGE IN BOWEL CONTROL? NO . GENITOURINARY: ANY NEW CHANGE IN BLADDER CONTROL? NO . IS THERE A CHANCE YOU COULD BE ? NO . HEMATOLOGY/LYMPH: DO YOU TAKE ANY BLOOD THINNERS? (FOR EXAMPLE- COUMADIN, PLAVIX, AGGRENOX, PLATEL, PRADAXA, OR XARELTO) NO . WHEN WAS YOUR LAST DOSE? DATE: TIME: . NEUROLOGY: HAVE YOU FALLEN IN THE PAST 6 MONTHS? NO . ANY NEW EXTREMITY NUMBNESS OR WEAKNESS? NO . CARDIOLOGY: DO YOU HAVE A PACEMAKER OR DEFIBRILLATOR? NO . RESPIRATORY: HAVE YOU BEEN SICK IN THE PAST WEEK? NO . FEVER NO . FLU LIKE SYMPTOMS? NO . COUGH NO . INTEGUMENTARY: DO YOU HAVE ANY RASHES OR OPEN SORES? NO . ALLERGIC/IMMUNO: ARE YOU ALLERGIC TO SHELLFISH OR IV DYE? NO . ANY NEW ALLERGIES? NO . PSYCHIATRIC: DO YOU HAVE THOUGHTS OF HURTING YOURSELF OR SOMEONE ELSE? NO . ARE YOU ABUSED, NEGLECTED, OR IN AN UNSAFE ENVIRONMENT? NO . ENDOCRINOLOGY: ARE YOU DIABETIC? NO . OTHER: DO YOU NEED ANY PRESCRIPTIONS? NO . IF YES, PLEASE LIST: ____ . ANY NEW PROBLEMS WITH YOUR MEDICATIONS? NO . WHEN DID YOU LAST EAT? ____ . WHEN DID YOU LAST DRINK? ____ . WHAT DID YOU LAST DRINK? ____ . NAME OF PERSON DRIVING YOU HOME? ____ . DO YOU HAVE ANY OTHER QUESTIONS OR CONCERNS NO . VITAL SIGNS WT 249 LBS, HT 65", BMI 41.43 INDEX, BP 114/74 MM HG, HR 76 /MIN, RR 16 /MIN, TEMP 97.3 F, OXYGEN SAT % 98%, NA INITIALS SC 14:10, REVIEWED BY: SOL. EXAMINATION GENERAL EXAMINATION: LUNGS:LUNG SOUNDS ARE CLEAR. HEART:HEART RATE REGULAR. MUSCULOSKELETAL:*, MUSCLE STRENGTH TESTING 5/5 BUE. TRIGGER POINTS:LEFT UPPER BACK/NECK AND SCAPULAR REGION.TENDERNESS OVER CERVICAL AXIS AND CERVICAL PARASPINAL. DIAGNOSTIC:MRI C-SPINE- -24-15- REVIEWED. ASSESSMENTS CERVICALGIA - M54.2 (PRIMARY) GENERALIZED PAIN - R52 MYALGIA - M79.1 TREATMENT CERVICALGIA STOP CYMBALTA CAPSULE DELAYED RELEASE PARTICLES, 60 MG, 1 CAPSULE, ORALLY, ONCE A DAY IN A.M. STOP CYMBALTA CAPSULE DELAYED RELEASE PARTICLES, 30 MG, 1 CAPSULE, ORALLY, ONCE A DAY IN P.M. STOP TRAMADOL HCL TABLET, 50 MG, 1, ORALLY, EVERY 6 HRS PRN MDD4 STOP AMITRIPTYLINE HCL TABLET, 25 MG, 1 TABLET AT BEDTIME, ORALLY, BEFORE BEDTIME REFILL TIZANIDINE HCL TABLET, 4 MG, 1 TABLET NEEDED, ORALLY, THREE TIMES A DAY, 30 DAY(S), 45, REFILLS 1 PROCEDURE CODES FA211 ESTABILISHED PATIENT [facility] CHARGE DISPOSITION & COMMUNICATION FOLLOW UP 2 MONTHS ELECTRONICALLY SIGNED BY BONILLA ARRIAGA ON 05/20/2017 AT 07:46 PM EDT DISCLAIMER : THIS IS A VISIT SUMMARY EXTRACTED FROM THE [employer] CHART. IT IS NOT A COPY OF THE [employer] PROGRESS NOTE. OLIVIA
== END ==
LOC: M PAIN 14:20
PROVIDERS: ATTEND Nurse Practitioner Family
DX: G89.29 Other chronic pain (principal); M54.2 Cervicalgia; M79.1 Myalgia; F43.10 Post-traumatic stress disorder, unspecified; E03.9 Hypothyroidism, unspecified; G43.709 Chronic migraine without aura, not intractable, without status migrainosus; F32.9 Major depressive disorder, single episode, unspecified; F60.3 Borderline personality disorder; Z88.0 Allergy status to penicillin; Z88.8 Allergy status to other drugs, medicaments and biological substances; Z79.891 Long term (current) use of opiate analgesic; Z79.899 Other long term (current) drug therapy

== ENCOUNTER 2017-05-06 11:48 | Emergency (ER) | payer MEDICAID, OTHER ==
[~2017-05-06] VITALS: Ht 165.1 cm; Wt 119.5 kg
[~2017-05-06 11:48] MED LIST changes: -BREO1INH INH; -CYMB60CA3 PO; -DULO30CA PO; -MECL-68 PO; -MOBI4TAB PO; -QUET5TAB PO; -TIZA4CAP3 PO; -TRAM50TA2 PO
[2017-05-06] MEDS ORDERED: DULO30CA PO (11:58)
[2017-05-06] MEDS ORDERED: BREO1INH INH (11:58)
[2017-05-06] MEDS ORDERED: TIZA4CAP3 PO (11:58)
[2017-05-06] MEDS ORDERED: TRAM50TA2 PO (11:58)
[2017-05-06] MEDS ORDERED: CYMB60CA3 PO (11:58)
[2017-05-06] MEDS ORDERED: QUET5TAB PO (11:59)
[2017-05-06] MEDS ORDERED: KETOROLAC 60 MG/2 ML VIAL (J1885) IM ONE ×2 (12:15→12:30)
--- NOTE | 2017-05-06 12:41 | REP ---
Right ankle series: Four views. History: Trauma. Findings: Four views of the right ankle demonstrate intact ankle mortise. No fracture or subluxation is seen. Impression: No fracture noted. Signed by Trent Verde MD 05/06/2017 12:33 P
[2017-05-06] MEDS ORDERED: MOBI4TAB PO (12:54)
[2017-05-06 13:09] VITALS: BP 136/89
== END 2017-05-06 13:17 | disposition home or self-care (01) ==
LOC: M ED 11:48
DX: S93.401A Sprain of unspecified ligament of right ankle, initial encounter (principal); J45.909 Unspecified asthma, uncomplicated; I10 Essential (primary) hypertension; E03.9 Hypothyroidism, unspecified; F34.81 Disruptive mood dysregulation disorder; Z79.899 Other long term (current) drug therapy; Z79.51 Long term (current) use of inhaled steroids; Z88.8 Allergy status to other drugs, medicaments and biological substances; Z88.0 Allergy status to penicillin

== ENCOUNTER 2017-05-21 22:58 | Emergency (ER) | payer OTHER ==
[~2017-05-21] VITALS: Ht 165.1 cm; Wt 106.8 kg
[~2017-05-21 22:58] MED LIST changes: +BREO1INH INH; +CYMB60CA3 PO; +DULO30CA PO; +MOBI4TAB PO; +QUET5TAB PO; +TIZA4CAP3 PO; +TRAM50TA2 PO
[2017-05-22] MEDS ORDERED: MECLIZINE 25 MG TABLET PO ONE (00:30)
[2017-05-22] MEDS ORDERED: KETOROLAC 30 MG/ML VIAL (J1885) IV ONE (00:30)
[2017-05-22 00:47] LABS: BASO % 0.6 % (0.0-1.0); EOS # 0.3 K/mm3 (0.0-0.50); EOS % 3.2 % (0.0-3.0); LARGE UNSTAINED CELL # 0.2 K/mm3 (0.0-0.4); LARGE UNSTAINED CELL % 2.7 % (0.0-4.0); LYMPH # 2.6 K/mm3 (1.5-4.5); LYMPH % 32.1 % (24.0-44.0); MEAN CORPUSCULAR HEMOGLOBIN 27.8 pg (27.0-33.0); MEAN CORPUSCULAR HGB CONC 32.6 g/dl (32.0-36.5); MEAN CORPUSCULAR VOLUME 85.3 fl (80.0-96.0); MONO # 0.6 K/mm3 (0.0-0.8); MONO % 7.7 % (0.0-5.0); NEUTROPHILS # 4.4 K/mm3 (1.8-7.7); NEUTROPHILS % 53.7 % (36.0-66.0); PLATELET COUNT, AUTOMATED 269 k/mm3 (150-450); RED CELL DISTRIBUTION WIDTH 14.1 % (11.5-14.5); WHITE BLOOD COUNT 8.2 K/mm3 (4.0-10.0)
[2017-05-22 00:48] LABS: ANION GAP 7 MEQ/L (8-16); BLOOD UREA NITROGEN 14 MG/DL (7-18); CALCIUM LEVEL 9.5 MG/DL (8.5-10.1); CARBON DIOXIDE LEVEL 32 MEQ/L (21-32); CHLORIDE LEVEL 101 MEQ/L (98-107); CREATININE FOR GFR 0.77 MG/DL (0.55-1.02); GLOMERULAR FILTRATION RATE > 60.0 (>60); GLUCOSE, FASTING 94 MG/DL (70-105); POTASSIUM SERUM 3.2 MEQ/L (3.5-5.1); SODIUM LEVEL 140 MEQ/L (136-145)
[2017-05-22] MEDS ORDERED: NS 1,000 ML IV ONE ×2 (01:00→02:30)
--- NOTE | 2017-05-22 01:10 | REPUSA ---
CLINICAL HISTORY: Dizziness. TECHNIQUE: Multiple axial brain CT scan sections were obtained from base to vertex without contrast a dministration. COMMENTS: The study shows normal configuration of sella turcica. There are no intra or extra-axial collections. There is no mass effect or midline shift. There is no evidence of hematoma formation. No hydrocephal us is present. No abnormal calcifications are noted. No significant abnormalities are seen either in the posterior fossa or supratentorial compartment. The sinuses and mastoid air cells are patent. IMPRESSION: No evidence of acute intracranial pathology. Thank you for your kind referral of this patient.
[2017-05-22 04:15] VITALS: BP 162/100
[2017-05-22] MEDS ORDERED: MECL-68 PO (04:20)
== END 2017-05-22 04:32 | disposition home or self-care (01) ==
LOC: EDBD 22:58 → M ED 22:58
DX: R42 Dizziness and giddiness (principal); Z88.8 Allergy status to other drugs, medicaments and biological substances; Z88.0 Allergy status to penicillin; Z79.899 Other long term (current) drug therapy
CPT/HCPCS: 70450; 80048; 85025; 96374; 99285; J1885

== ENCOUNTER 2017-05-26 23:47 | Emergency (ER) | payer OTHER ==
[~2017-05-26] VITALS: Ht 165.1 cm; Wt 107.3 kg
[~2017-05-26 23:47] MED LIST changes: +MECL-68 PO
[2017-05-27 05:36] LABS: BASO % 0.7 % (0.0-1.0); EOS # 0.2 K/mm3 (0.0-0.50); EOS % 2.5 % (0.0-3.0); LARGE UNSTAINED CELL # 0.2 K/mm3 (0.0-0.4); LARGE UNSTAINED CELL % 2.7 % (0.0-4.0); LYMPH # 2.4 K/mm3 (1.5-4.5); LYMPH % 30.5 % (24.0-44.0); MEAN CORPUSCULAR HEMOGLOBIN 28.3 pg (27.0-33.0); MEAN CORPUSCULAR HGB CONC 32.6 g/dl (32.0-36.5); MEAN CORPUSCULAR VOLUME 86.7 fl (80.0-96.0); MONO # 0.7 K/mm3 (0.0-0.8); MONO % 8.7 % (0.0-5.0); NEUTROPHILS # 4.3 K/mm3 (1.8-7.7); NEUTROPHILS % 54.9 % (36.0-66.0); PLATELET COUNT, AUTOMATED 256 k/mm3 (150-450); RED CELL DISTRIBUTION WIDTH 14.5 % (11.5-14.5); WHITE BLOOD COUNT 7.7 K/mm3 (4.0-10.0)
[2017-05-27 05:51] LABS: ANION GAP 9 MEQ/L (8-16); BLOOD UREA NITROGEN 18 MG/DL (7-18); CARBON DIOXIDE LEVEL 28 MEQ/L (21-32); CHLORIDE LEVEL 105 MEQ/L (98-107); CREATININE FOR GFR 0.76 MG/DL (0.55-1.02); GLOMERULAR FILTRATION RATE > 60.0 (>60); GLUCOSE, FASTING 76 MG/DL (70-105); HCG, SERUM QUANTITATIVE < 1.0 MIU/ML; POTASSIUM SERUM 3.5 MEQ/L (3.5-5.1); SODIUM LEVEL 142 MEQ/L (136-145)
[2017-05-27 06:21] VITALS: BP_DIAS 93
[2017-05-27] MEDS ORDERED: dexameTHASONE 20 MG/5 ML VIAL (J1100) IV ONE (06:30)
[2017-05-27] MEDS ORDERED: ISOVUE-370 76% 100ML VIAL (Q9967) As Ordered ONE (06:49)
--- NOTE | 2017-05-27 07:50 | REPUSA ---
CLINICAL HISTORY: Dizziness. TECHNIQUE: Multiple axial brain CT scan sections were obtained from base to vertex with contrast admi nistration. COMMENTS: The study shows normal configuration of sella turcica. There are no intra or extra-axial collections. There is no mass effect or midline shift. There is no evidence of hematoma formation. No hydrocephal us is present. No abnormal calcifications are noted. No significant abnormalities are seen either in the posterior fossa or supratentorial compartment. The sinuses and mastoid air cells are patent. No abnormal enhancement is seen. IMPRESSION: No abnormal enhancement is seen. No evidence of acute intracranial pathology. Thank you for your kind referral of this patient.
--- NOTE | 2017-05-27 08:00 | REPUSA ---
CT INTERNAL AUDITORY CANALS CLINICAL HISTORY: Dizziness. TECHNIQUE: Multiple axial CT images were obtained through temporal bones with IV contrast material. COMMENTS: The auditory ossicles are within normal limits without evidence of erosion or destruction. There is n o evidence of erosion of the scutum to suggested cholesteatoma. The mastoid air cells and Korner's se ptum appear intact. There is no evidence of fluid. The auditus and antrum are within normal limits. IMPRESSION: Unremarkable exam. No abnormal enhancement is seen.
[2017-05-27 08:38] VITALS: BP_SYST 171
== END 2017-05-27 08:44 | disposition home or self-care (01) ==
LOC: M ED 23:47
DX: H83.03 Labyrinthitis, bilateral (principal); H93.13 Tinnitus, bilateral; J45.909 Unspecified asthma, uncomplicated; F32.9 Major depressive disorder, single episode, unspecified; Z88.0 Allergy status to penicillin; Z88.8 Allergy status to other drugs, medicaments and biological substances; Z79.899 Other long term (current) drug therapy; Z79.51 Long term (current) use of inhaled steroids
CPT/HCPCS: 36415; 70460; 70481; 80048; 84702; 85025; 96374; 99284; J1100; Q9967

== ENCOUNTER → 2017-06-18 | Outpatient (CLI) | payer MEDICAID, OTHER ==
--- NOTE | 2017-07-09 02:36 | ECWPNPC ---
PATIENT NAME: LILIAM SMART : 1980 GENDER: FEMALE VISIT DATE: 06/18/2017 DISCHARGE DATE: 06/18/17 1359 VISIT LOCKED DATE TIME: PHYSICIAN: UJAN GRIER RESOURCE: JUAN GRIER REASON FOR APPOINTMENT 1. NECK HISTORY OF PRESENT ILLNESS HISTORY OF PRESENT ILLNESS: FOR F/U OF CHRONIC GENERALIZED BACK PAIN.CHIEF AREA OF PAIN IS NECK AND UPPER BACK.SHE WAS TAKEN OFF ALL PAIN MEDICATION 2 MONTHS AGO SHE WAS REPORTING THAT NONE OF IT WORKED EXCEPT TIZANIDINE.STATES THAT TIZANIDINE 4MG HELPS LESSEN MUSCLE SPASMS IN UPPER AND MID BACK.REPORTING EPISODES OF DIZZINESS AND FALLING LATELY AND WAS SEEN IN ER.ENT TO EVALUATE TODAY.RATING PAIN VAS 8/10. PAIN THE PATIENT DESCRIBES THE PAIN... FALL RISK SCREENING: SCREENING :NO FALLS IN THE PAST YEAR CURRENT MEDICATIONS TAKING ALBUTEROL SULFATE HFA 108 (90 BASE) MCG/ACT AEROSOL SOLUTION 2 PUFFS NEEDED INHALATION EVERY 4 HRS TAKING CHLORTHALIDONE 12.5 12.5MG TABLET ORAL ONCE DAILY TAKING LAMOTRIGINE 100 MG TABLET 1 TABLET ORALLY BID TAKING LEVOTHYROXINE SODIUM 75 MCG TABLET 1 TABLET ORALLY ONCE A DAY TAKING LOSARTAN POTASSIUM 50 MG TABLET 1 TAB(S) ORALLY TWICE A DAY TAKING VITAMIN D 88259 U TABLET 1 TABLET ORALLY ONCE A WEEK TAKING ACETAMINOPHEN 500 MG TABLET 1-2 ORALLY Q8H PRN TAKING TIZANIDINE HCL 4 MG TABLET 1 TABLET NEEDED ORALLY THREE TIMES A DAY TAKING SEROQUEL 25 MG TABLET 1 TABLET ORALLY ONCE A DAY TAKING BREO ELLIPTA 100-25 MCG/INH AEROSOL POWDER BREATH ACTIVATED 1 PUFF INHALATION ONCE A DAY TAKING ZYRTEC ALLERGY 10 MG TABLET 1 TABLET ORALLY ONCE A DAY NOT-TAKING SYMBICORT 160-4.5 MCG/ACT AEROSOL 2 PUFFS INHALATION TWICE A DAY NOT-TAKING LORATADINE 10 MG TABLET 1 TABLET ORALLY ONCE A DAY NOT-TAKING ALEVE 220 MG TABLET 2 ORALLY EVERY 12 HRS NOT-TAKING DIPHENHYDRAMINE HCL 50 MG TABLET 1 TABLET AT BEDTIME NEEDED ORALLY ONCE A DAY, NOTES: 02-13-17 MEDICATION LIST REVIEWED AND RECONCILED WITH THE PATIENT PAST MEDICAL HISTORY PTSD HYPOTHYROID CHRONIC 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 BMI CARE GOAL FOLLOW-UP ABOVE NORMAL BMI FOLLOW-UPDIETARY NEEDS EDUCATION, GIVING ENCOURAGEMENT TO EXERCISE, WEIGHT MONITORING CAFFEINE CAFFEINE USE?YES HOW OFTEN AND HOW MUCH? 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 DIET: REGULAR. EXERCISE: WALKS 1/2 MILE DAILY. MARITAL STATUS: SINGLE. OTHERS AT HOME: CHILD. [employer] [id number] NONE LANGUAGE [place]. LEARNING BARRIERS / SPECIAL NEEDS CHANGE FROM LAST VISIT?NO BARRIERS TO LEARNING?NO HEARING IMPAIRED?NO VISION IMPAIRED?YES :CORRECTIVE LENSES COGNITIVELY IMPAIRED?NO READINESS TO LEARN?YES LEARNING PREFERENCES?NO LEARNING CAPABILITIES PRESENT?YES EMOTIONAL BARRIERS?NO SPECIAL DEVICES?NO WELFARE MANAGER NEEDED?NO NEW PATIENT PAIN DIARY TODAY'S VISIT NOTES, FROM 0-10, WHAT LEVEL IS YOUR PAIN TODAY? 0. PAIN CLINIC PFS, CLERGY, PUBLIC HEALTH REFERRALS PFS REFERRAL NEEDED?NO CLERGY REFERRAL NEEDED?NO PUBLIC HEALTH REFERRAL NEEDED?NO HAS THE PATIENT BEEN EDUCATED REGARDING HIS/HER PLAN OF CARE?YES HAS THE PATIENT BEEN EDUCATED REGARDING PAIN, THE RISK FOR PAIN, THE IMPORTANCE OF EFFECTIVE PAIN MANAGEMENT, AND THE PAIN ASSESSMENT PROCESS?YES REVIEW OF SYSTEMS REVIEWED BY: PROVIDER: JUAN CRYSTAL . CONSTITUTIONAL: ANY CHANGE IN YOUR MEDICAL CONDITION? 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 CHILLS NO . FEVER NO . INFECTION: DO YOU HAVE NEW INFECTIONS? NO . DO YOU HAVE HISTORY OF MRSA? NO . MUSCULOSKELETAL: ANY NEW PATTERNS OF PAIN OR NUMBNESS? NO . GASTROENTEROLOGY: ANY NEW CHANGE IN BOWEL CONTROL? NO . GENITOURINARY: ANY NEW CHANGE IN BLADDER CONTROL? NO . IS THERE A CHANCE YOU COULD BE ? NO . HEMATOLOGY/LYMPH: DO YOU TAKE ANY BLOOD THINNERS? (FOR EXAMPLE- COUMADIN, PLAVIX, AGGRENOX, PLATEL, PRADAXA, OR XARELTO) NO . WHEN WAS YOUR LAST DOSE? DATE: TIME: . NEUROLOGY: HAVE YOU FALLEN IN THE PAST 6 MONTHS? YES . ANY NEW EXTREMITY NUMBNESS OR WEAKNESS? NO . CARDIOLOGY: DO YOU HAVE A PACEMAKER OR DEFIBRILLATOR? NO . RESPIRATORY: HAVE YOU BEEN SICK IN THE PAST WEEK? YES, ALLERGIES . FEVER NO . FLU LIKE SYMPTOMS? NO . COUGH NO . INTEGUMENTARY: DO YOU HAVE ANY RASHES OR OPEN SORES? YES, RASH ON RIGHT ARM . ALLERGIC/IMMUNO: ARE YOU ALLERGIC TO SHELLFISH OR IV DYE? NO . ANY NEW ALLERGIES? NO . PSYCHIATRIC: DO YOU HAVE THOUGHTS OF HURTING YOURSELF OR SOMEONE ELSE? NO . ARE YOU ABUSED, NEGLECTED, OR IN AN UNSAFE ENVIRONMENT? NO . ENDOCRINOLOGY: ARE YOU DIABETIC? NO . OTHER: DO YOU NEED ANY PRESCRIPTIONS? NO . IF YES, PLEASE LIST: ____ . ANY NEW PROBLEMS WITH YOUR MEDICATIONS? NO . WHEN DID YOU LAST EAT? ____ . WHEN DID YOU LAST DRINK? ____ . WHAT DID YOU LAST DRINK? ____ . NAME OF PERSON DRIVING YOU HOME? ____ . DO YOU HAVE ANY OTHER QUESTIONS OR CONCERNS YES, EXTREME SORENESS IN LEGS AND FEET . VITAL SIGNS WT 256 LBS, HT 65", BMI 42.60 INDEX, BP 152/93 MM HG, HR 59 /MIN, RR 16 /MIN, TEMP 97.5 F, OXYGEN SAT % 100%, NA INITIALS AW 1326, REVIEWED BY: CS. EXAMINATION GENERAL EXAMINATION: LUNGS:LUNG SOUNDS ARE CLEAR. HEART:HEART RATE REGULAR. MUSCULOSKELETAL:*, MUSCLE STRENGTH TESTING 5/5 BUE. TRIGGER POINTS:LEFT UPPER BACK/NECK AND SCAPULAR REGION.TENDERNESS OVER CERVICAL AXIS AND CERVICAL PARASPINAL. DIAGNOSTIC:MRI C-SPINE- -24-15- REVIEWED. ASSESSMENTS CERVICALGIA - M54.2 (PRIMARY) FIBROMYALGIA - M79.7 TREATMENT CERVICALGIA CONTINUE TIZANIDINE HCL TABLET, 4 MG, 1 TABLET NEEDED, ORALLY, THREE TIMES A DAY OTHERS [facility] RE[facility]ON:NECK PAIN/ABNORMAL MRI C-SPINE/BLE WEAKNESS W FALLING PROCEDURE CODES FA211 ESTABILISHED PATIENT [facility] CHARGE DISPOSITION & COMMUNICATION FOLLOW UP 2 MONTHS ELECTRONICALLY SIGNED BY BONILLA ARRIAGA ON 07/07/2017 AT 07:44 AM EDT DISCLAIMER : THIS IS A VISIT SUMMARY EXTRACTED FROM THE [employer] CHART. IT IS NOT A COPY OF THE [employer] PROGRESS NOTE. MTDD
== END ==
LOC: M PAIN 13:00
PROVIDERS: ATTEND Nurse Practitioner Family
DX: G89.29 Other chronic pain (principal); M54.2 Cervicalgia; M79.7 Fibromyalgia; F43.10 Post-traumatic stress disorder, unspecified; E03.9 Hypothyroidism, unspecified; G43.709 Chronic migraine without aura, not intractable, without status migrainosus; F32.9 Major depressive disorder, single episode, unspecified; F60.3 Borderline personality disorder; R00.0 Tachycardia, unspecified; Z79.899 Other long term (current) drug therapy; Z88.0 Allergy status to penicillin; Z88.8 Allergy status to other drugs, medicaments and biological substances

== ENCOUNTER 2017-08-16 12:01 | Emergency (ER) | payer MEDICAID, OTHER ==
[~2017-08-16] VITALS: Ht 165.1 cm; Wt 113.7 kg
[2017-08-16 12:13] VITALS: BP 90/60
[2017-08-16] MEDS ORDERED: ZYRT10CA PO (12:17)
[2017-08-16] MEDS ORDERED: NORCO, ANEXSIA 5/325MG TABLET (HYDROcodone/ACETAMINOPHEN) PO ONE (13:00)
== END 2017-08-16 13:31 | disposition home or self-care (01) ==
LOC: M ED 12:01
DX: M19.011 Primary osteoarthritis, right shoulder (principal); I10 Essential (primary) hypertension; J45.909 Unspecified asthma, uncomplicated; F17.210 Nicotine dependence, cigarettes, uncomplicated; Z79.51 Long term (current) use of inhaled steroids; Z79.899 Other long term (current) drug therapy; Z88.8 Allergy status to other drugs, medicaments and biological substances; Z88.0 Allergy status to penicillin; Z87.820 Personal history of traumatic brain injury

== ENCOUNTER → 2017-08-18 | Outpatient (CLI) | payer OTHER ==
[~2017-08-18] MED LIST changes: +DULO1CAP; +KETO10TAB PO; +QUET5TAB; +TYLE500T78 PO; +ZYRT10CA PO
== END ==
LOC: M PAIN 13:15
PROVIDERS: ATTEND Nurse Practitioner Family
DX: M54.2 Cervicalgia (principal); M79.7 Fibromyalgia; G89.29 Other chronic pain; E03.9 Hypothyroidism, unspecified; Z79.899 Other long term (current) drug therapy; Z88.0 Allergy status to penicillin; Z88.8 Allergy status to other drugs, medicaments and biological substances

== ENCOUNTER 2017-08-22 07:50 | Emergency (ER) | payer OTHER ==
[~2017-08-22] VITALS: Ht 165.1 cm; Wt 107.3 kg
[~2017-08-22 07:50] MED LIST changes: -DULO1CAP; -KETO10TAB PO; -QUET5TAB; -TYLE500T78 PO
[2017-08-22] MEDS ORDERED: QUET5TAB (08:02)
[2017-08-22] MEDS ORDERED: KETO10TAB PO (08:02)
[2017-08-22] MEDS ORDERED: DULO1CAP (08:02)
[2017-08-22] MEDS ORDERED: TYLE500T78 PO (08:02)
--- NOTE | 2017-08-22 09:24 | REP ---
RIGHT SHOULDER, THREE VIEWS: HISTORY: Pain. There is no acute fracture or dislocation. The joint spaces are normal in appearance. IMPRESSION: There is no acute fracture or dislocation. Signed by Elmer Shi MD 08/22/2017 09:30 A
[2017-08-22] MEDS ORDERED: PERCOCET 5MG/325MG TAB PO ONE (10:00)
[2017-08-22 10:06] VITALS: BP 178/118
== END 2017-08-22 10:16 | disposition home or self-care (01) ==
LOC: M ED 07:50
DX: I10 Essential (primary) hypertension (principal); M54.2 Cervicalgia; G89.29 Other chronic pain; M25.511 Pain in right shoulder; J45.909 Unspecified asthma, uncomplicated; M51.9 Unspecified thoracic, thoracolumbar and lumbosacral intervertebral disc disorder; F41.9 Anxiety disorder, unspecified; F33.9 Major depressive disorder, recurrent, unspecified; Z98.890 Other specified postprocedural states; Z79.1 Long term (current) use of non-steroidal anti-inflammatories (NSAID); Z79.51 Long term (current) use of inhaled steroids; Z79.899 Other long term (current) drug therapy; Z88.8 Allergy status to other drugs, medicaments and biological substances; Z88.0 Allergy status to penicillin

== ENCOUNTER → 2017-08-25 | Outpatient (CLI) | payer OTHER ==
[~2017-08-25] MED LIST changes: +DULO1CAP; +KETO10TAB PO; +QUET5TAB; +TYLE500T78 PO
--- NOTE | 2017-08-25 23:16 | ECWPNPC ---
PATIENT NAME: LILIAM SMART : 1980 GENDER: FEMALE VISIT DATE: 08/25/2017 DISCHARGE DATE: 08/25/17 1539 VISIT LOCKED DATE TIME: PHYSICIAN: JUAN GRIER RESOURCE: JUAN GRIER REASON FOR APPOINTMENT 1. NECK HISTORY OF PRESENT ILLNESS HISTORY OF PRESENT ILLNESS: HAVING SEVERE NECK AND RIGHT ARM PAIN PAST TWO WEEKS.DENIES INJURY.SHE IS CRYING AND CRADLING HER RIGHT ARM.STATES PAIN HAS BEEN SO INTENSE SHE HASNT BEEN ABLE TO SLEEP.TORODOL PRESCRIBED LAST WEEK ISNT HELPING.SAW ORTHOPEDICS YESTRDAY AND HAD CERVICAL MRI.HAS OLLOW UP WITH ORTHO NEXT WEEK. PAIN THE PATIENT DESCRIBES THE PAIN... FALL RISK SCREENING: SCREENING :NO FALLS IN THE PAST YEAR CURRENT MEDICATIONS TAKING ALBUTEROL SULFATE HFA 108 (90 BASE) MCG/ACT AEROSOL SOLUTION 2 PUFFS NEEDED INHALATION EVERY 4 HRS TAKING CHLORTHALIDONE 12.5 12.5MG TABLET ORAL ONCE DAILY TAKING LAMOTRIGINE 100 MG TABLET 1 TABLET ORALLY BID TAKING LEVOTHYROXINE SODIUM 75 MCG TABLET 1 TABLET ORALLY ONCE A DAY TAKING LOSARTAN POTASSIUM 50 MG TABLET 1 TAB(S) ORALLY TWICE A DAY TAKING VITAMIN D 64658 U TABLET 1 TABLET ORALLY ONCE A WEEK TAKING ACETAMINOPHEN 500 MG TABLET 1-2 ORALLY Q8H PRN TAKING SEROQUEL 25 MG TABLET 1 TABLET ORALLY ONCE A DAY TAKING BREO ELLIPTA 100-25 MCG/INH AEROSOL POWDER BREATH ACTIVATED 1 PUFF INHALATION ONCE A DAY TAKING ZYRTEC ALLERGY 10 MG TABLET 1 TABLET ORALLY ONCE A DAY TAKING TIZANIDINE HCL 4 MG TABLET 1 TABLET NEEDED ORALLY THREE TIMES A DAY TAKING SYMBICORT 160-4.5 MCG/ACT AEROSOL 2 PUFFS INHALATION TWICE A DAY TAKING LORATADINE 10 MG TABLET 1 TABLET ORALLY ONCE A DAY TAKING ALEVE 220 MG TABLET 2 ORALLY EVERY 12 HRS TAKING DIPHENHYDRAMINE HCL 50 MG TABLET 1 TABLET AT BEDTIME NEEDED ORALLY ONCE A DAY, NOTES: 02-13-17 TAKING KETOROLAC TROMETHAMINE 10 MG TABLET 1 TABLET WITH FOOD OR MILK NEEDED ORALLY EVERY 6 HRS MEDICATION LIST REVIEWED AND RECONCILED WITH THE PATIENT PAST MEDICAL HISTORY PTSD HYPOTHYROID CHRONIC 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 BMI CARE GOAL FOLLOW-UP ABOVE NORMAL BMI FOLLOW-UPDIETARY NEEDS EDUCATION, GIVING ENCOURAGEMENT TO EXERCISE, WEIGHT MONITORING CAFFEINE CAFFEINE USE?YES HOW OFTEN AND HOW MUCH? 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 DIET: REGULAR. EXERCISE: WALKS 1/2 MILE DAILY. MARITAL STATUS: SINGLE. OTHERS AT HOME: CHILD. JAIN [id number] NONE LANGUAGE NEPALI. LEARNING BARRIERS / SPECIAL NEEDS CHANGE FROM LAST VISIT?NO BARRIERS TO LEARNING?NO HEARING IMPAIRED?NO VISION IMPAIRED?YES :CORRECTIVE LENSES COGNITIVELY IMPAIRED?NO READINESS TO LEARN?YES LEARNING PREFERENCES?NO LEARNING CAPABILITIES PRESENT?YES EMOTIONAL BARRIERS?NO SPECIAL DEVICES?NO SIGN WRITER LETTERER OR PAINTER NEEDED?NO NEW PATIENT PAIN DIARY TODAY'S VISIT NOTES, FROM 0-10, WHAT LEVEL IS YOUR PAIN TODAY? 0. PAIN CLINIC PFS, CLERGY, PUBLIC HEALTH REFERRALS PFS REFERRAL NEEDED?NO CLERGY REFERRAL NEEDED?NO PUBLIC HEALTH REFERRAL NEEDED?NO HAS THE PATIENT BEEN EDUCATED REGARDING HIS/HER PLAN OF CARE?YES HAS THE PATIENT BEEN EDUCATED REGARDING PAIN, THE RISK FOR PAIN, THE IMPORTANCE OF EFFECTIVE PAIN MANAGEMENT, AND THE PAIN ASSESSMENT PROCESS?YES REVIEW OF SYSTEMS REVIEWED BY: PROVIDER: JUAN CRYSTAL . CONSTITUTIONAL: ANY CHANGE IN YOUR MEDICAL CONDITION? YES, PT STATES SHE WENT TO [facility] ER LAST WEEK FOR SHOULDER PAIN X2. PT STATES SHE WAS TX'D WITH 1 PERCOSET AND SENT HOME THE FIRST ER VISIT, THE SECOND ER VISIT, PT STATES SHE WAS GIVEN NO PAIN MEDICINE AND SENT HOME . CHILLS NO . FEVER NO . INFECTION: DO YOU HAVE NEW INFECTIONS? NO . DO YOU HAVE HISTORY OF MRSA? NO . MUSCULOSKELETAL: ANY NEW PATTERNS OF PAIN OR NUMBNESS? YES, RIGHT SHOULDER, PT STATES STARTED 12 DAYS AGO, WORSE IN PAST 3 DAYS. PT STATES PAIN STARTED WHEN SHE WOKE UP IN BED. PT STATES SHE WAS STARTED ON KETOROLAC, BUT IT DIDN'T HELP . GASTROENTEROLOGY: ANY NEW CHANGE IN BOWEL CONTROL? NO . GENITOURINARY: ANY NEW CHANGE IN BLADDER CONTROL? NO . IS THERE A CHANCE YOU COULD BE ? NO . HEMATOLOGY/LYMPH: DO YOU TAKE ANY BLOOD THINNERS? (FOR EXAMPLE- COUMADIN, PLAVIX, AGGRENOX, PLATEL, PRADAXA, OR XARELTO) NO . WHEN WAS YOUR LAST DOSE? DATE: TIME: . NEUROLOGY: HAVE YOU FALLEN IN THE PAST 6 MONTHS? YES, PT STATES SHE FELL FROM LOSS OF BALANCE OVER THE SUMMER . ANY NEW EXTREMITY NUMBNESS OR WEAKNESS? NO . CARDIOLOGY: DO YOU HAVE A PACEMAKER OR DEFIBRILLATOR? NO . RESPIRATORY: HAVE YOU BEEN SICK IN THE PAST WEEK? NO . FEVER NO . FLU LIKE SYMPTOMS? NO . COUGH NO . INTEGUMENTARY: DO YOU HAVE ANY RASHES OR OPEN SORES? NO . ALLERGIC/IMMUNO: ARE YOU ALLERGIC TO SHELLFISH OR IV DYE? NO . ANY NEW ALLERGIES? NO . PSYCHIATRIC: DO YOU HAVE THOUGHTS OF HURTING YOURSELF OR SOMEONE ELSE? NO . ARE YOU ABUSED, NEGLECTED, OR IN AN UNSAFE ENVIRONMENT? NO . ENDOCRINOLOGY: ARE YOU DIABETIC? NO . OTHER: DO YOU NEED ANY PRESCRIPTIONS? NO . IF YES, PLEASE LIST: ____ . ANY NEW PROBLEMS WITH YOUR MEDICATIONS? NO . WHEN DID YOU LAST EAT? ____ . WHEN DID YOU LAST DRINK? ____ . WHAT DID YOU LAST DRINK? ____ . NAME OF PERSON DRIVING YOU HOME? ____ . DO YOU HAVE ANY OTHER QUESTIONS OR CONCERNS NO . VITAL SIGNS WT 251.0 LBS, HT 65", BMI 41.76 INDEX, BP 197/117 MM HG, REPEAT BP 194/110 MANUAL, HR 86 /MIN, RR 20 /MIN, TEMP 97.2 F, OXYGEN SAT % 98%, NA INITIALS TL 1500, REVIEWED BY: EMELEVATELaina BP 194/110 MANUAL, RN Loy AWARE -TL. EXAMINATION GENERAL EXAMINATION: GENERAL APPEARANCE:CRADLING RIGHT ARM,UNCOMFORTABLE. PSYCHCRYING. LUNGS:LUNG SOUNDS ARE CLEAR . HEART:HEART RATE REGULAR . MUSCULOSKELETAL:*, MUSCLE STRENGTH TESTING 5/5 LUE.RIGHT UPPER ARM TENDER TO LIGHT TOUCH. TRIGGER POINTS:RIGHT UPPER BACK/NECK AND SCAPULAR REGION.TENDERNESS OVER CERVICAL AXIS AND CERVICAL PARASPINAL . NEUROLOGIC EXAM:NEGATIVE ROMBERG.NORMAL SENSATION TO LIGHT TOUH UPPER AND LOWER EXTREMITIES. DIAGNOSTIC:MRI C-SPINE- 12-06-- REVIEWED . ASSESSMENTS CERVICALGIA - M54.2 (PRIMARY) FIBROMYALGIA - M79.7 TREATMENT CERVICALGIA STOP TIZANIDINE HCL TABLET, 4 MG, 1 TABLET NEEDED, ORALLY, THREE TIMES A DAY START OXYCODONE HCL TABLET, 5 MG, 1 TABLET NEEDED, ORALLY, ONE TO TWO TABS Q6H PRN FOR SEVERE PAIN MDD6, 30 DAY(S), 50, REFILLS 0 START SOMA TABLET, 350 MG, 1 TABLET NEEDED, ORALLY, 1 TAB TID MDD3, 10 DAY(S), 30, REFILLS 0 START COLACE CAPSULE, 100 MG, 1 CAPSULE NEEDED, ORALLY, BID, 30 DAY(S), 60 CAPSULE, REFILLS 0 NOTES: ISTOP REGISTRY REVIEWED [id number] AND DEMNOSTRATES COMPLLIANCE. PROCEDURE CODES FA211 ESTABILISHED PATIENT [facility] FACILITY CHARGE DISPOSITION & COMMUNICATION FOLLOW UP 10 DAY SQUEEZE IN (REASON: SIN RELEASE FOR MRI C-SPINE [facility]COG) ELECTRONICALLY SIGNED BY BONILLA ARRIAGA ON 08/25/2017 AT 03:46 PM EST DISCLAIMER : THIS IS A VISIT SUMMARY EXTRACTED FROM THE [employer] CHART. IT IS NOT A COPY OF THE [employer] PROGRESS NOTE. MTDD
== END ==
LOC: M PAIN 14:45
PROVIDERS: ATTEND Nurse Practitioner Family
DX: G89.29 Other chronic pain (principal); M54.2 Cervicalgia; M79.7 Fibromyalgia; M25.511 Pain in right shoulder; F43.10 Post-traumatic stress disorder, unspecified; E03.9 Hypothyroidism, unspecified; G43.909 Migraine, unspecified, not intractable, without status migrainosus; F32.9 Major depressive disorder, single episode, unspecified; Z88.0 Allergy status to penicillin; Z88.8 Allergy status to other drugs, medicaments and biological substances; Z79.1 Long term (current) use of non-steroidal anti-inflammatories (NSAID); Z79.899 Other long term (current) drug therapy

== ENCOUNTER → 2017-09-16 | Outpatient (CLI) | payer OTHER | LOC: M PAIN 13:00 | DX: M54.2 Cervicalgia (principal); M79.601 Pain in right arm; M79.7 Fibromyalgia; F43.10 Post-traumatic stress disorder, unspecified; E03.9 Hypothyroidism, unspecified; G43.909 Migraine, unspecified, not intractable, without status migrainosus; F32.9 Major depressive disorder, single episode, unspecified; Z88.0 Allergy status to penicillin; Z88.8 Allergy status to other drugs, medicaments and biological substances; Z79.1 Long term (current) use of non-steroidal anti-inflammatories (NSAID); Z79.891 Long term (current) use of opiate analgesic; Z79.899 Other long term (current) drug therapy | CPT/HCPCS: G0463 ==

== ENCOUNTER → 2017-10-14 | Outpatient (CLI) | payer OTHER | END | disposition home or self-care (01) | LOC: M PAIN 10:00 | DX: G89.29 Other chronic pain (principal); M50.20 Other cervical disc displacement, unspecified cervical region; M54.12 Radiculopathy, cervical region; F43.10 Post-traumatic stress disorder, unspecified; E03.9 Hypothyroidism, unspecified; G43.909 Migraine, unspecified, not intractable, without status migrainosus; F60.3 Borderline personality disorder; R00.0 Tachycardia, unspecified; Z79.899 Other long term (current) drug therapy; Z79.51 Long term (current) use of inhaled steroids; Z79.890 Hormone replacement therapy; Z88.0 Allergy status to penicillin; Z88.8 Allergy status to other drugs, medicaments and biological substances | CPT/HCPCS: G0463 ==

== ENCOUNTER → 2017-10-29 | Outpatient (CLI) | payer OTHER ==
[~2017-10-29] MED LIST changes: -ABIL1TAB11 PO; -ALBU17IN INH; -ALEV220C2 PO; -AMIT25TA PO; -BACL10TA GT; -BACL10TA2 PO; -BENA25CA2 PO; -BREO1INH INH; -BUPR150T5 PO; -CELE40TA PO; -CHLO125TA PO; -CLAR1TAB2 PO; -CYMB60CA3 PO; -DILT120C79 PO; -DULO1CAP; -DULO30CA PO; -GABA-282 PO; -GABA-283 PO; -GABA600T PO; -HYZA100T2 PO; -IMIT50TA PO; -IMIT6INJ SC; -INDE1CAP5 PO; +ISOVUE-M 300 61% 15ML VIAL (Q9967) As Ordered; -K-TA10TA2 PO; -KETO10TAB PO; -LAMO10TA PO; -LASI40TA PO; -LEVO25TA5 PO; +LIDOCAINE 1% SDV INJ 30 ML VIAL As Ordered; -LORA10TA2 PO; -LOSA100T8 PO; -LOSA50TA20 PO; -LOSA50TA5 PO; -LYRI75CA PO; -MECL-68 PO; -MOBI15TA PO; -MOBI4TAB PO; -NORCOTAB PO; -PROP60TA14 PO; -QUET5TAB; -QUET5TAB PO; -REME15TA PO; -ROBA750T4 PO; -SYMB16INH INH; -TIZA4CAP3 PO; -TRAM50TA2 PO; -TRAZ50TA11 PO; -TYLE500T78 PO; -TYLETAB14 PO; -ZONI25CA2 PO; -ZYRT10CA PO; +diazePAM 5 MG TAB As Ordered; -flexeril PO; +methylPREDNISolone SUSP 40 MG/ML (DEPO-medrol) VIAL (J1030) As Ordered; +oxyCODONE 5MG TAB As Ordered; -vitamin d PO
== END ==
LOC: M PAIN 08:45
DX: G89.29 Other chronic pain (principal); M50.13 Cervical disc disorder with radiculopathy, cervicothoracic region; F43.10 Post-traumatic stress disorder, unspecified; E03.9 Hypothyroidism, unspecified; G43.909 Migraine, unspecified, not intractable, without status migrainosus; F32.9 Major depressive disorder, single episode, unspecified; Z79.51 Long term (current) use of inhaled steroids; Z79.899 Other long term (current) drug therapy; Z88.0 Allergy status to penicillin; Z88.8 Allergy status to other drugs, medicaments and biological substances
CPT/HCPCS: J1030

== ENCOUNTER → 2017-11-12 | Outpatient (CLI) | payer OTHER | LOC: M PAIN 11:30 | DX: G89.29 Other chronic pain (principal); M50.20 Other cervical disc displacement, unspecified cervical region; M54.12 Radiculopathy, cervical region; F43.10 Post-traumatic stress disorder, unspecified; E03.9 Hypothyroidism, unspecified; G43.709 Chronic migraine without aura, not intractable, without status migrainosus; F32.9 Major depressive disorder, single episode, unspecified; F60.3 Borderline personality disorder; R00.0 Tachycardia, unspecified; Z79.1 Long term (current) use of non-steroidal anti-inflammatories (NSAID); Z79.899 Other long term (current) drug therapy; Z88.0 Allergy status to penicillin; Z88.8 Allergy status to other drugs, medicaments and biological substances | CPT/HCPCS: G0463 ==

== ENCOUNTER → 2017-11-19 | Outpatient (REF) | payer OTHER | LOC: M SFHCWAGY 13:35 | DX: Z12.4 Encounter for screening for malignant neoplasm of cervix (principal); R87.612 Low grade squamous intraepithelial lesion on cytologic smear of cervix (LGSIL) | CPT/HCPCS: 88142 ==

== ENCOUNTER → 2017-12-02 | Outpatient (CLI) | payer OTHER | LOC: M PAIN 10:45 | DX: G89.29 Other chronic pain (principal); M50.13 Cervical disc disorder with radiculopathy, cervicothoracic region; E03.9 Hypothyroidism, unspecified; I10 Essential (primary) hypertension; F32.9 Major depressive disorder, single episode, unspecified; Z79.891 Long term (current) use of opiate analgesic; Z79.899 Other long term (current) drug therapy; Z88.8 Allergy status to other drugs, medicaments and biological substances | CPT/HCPCS: J1030 ==

== ENCOUNTER → 2017-12-16 | Outpatient (CLI) | payer OTHER | LOC: M PAIN 10:15 | DX: M50.20 Other cervical disc displacement, unspecified cervical region (principal); M54.12 Radiculopathy, cervical region; F43.10 Post-traumatic stress disorder, unspecified; E03.9 Hypothyroidism, unspecified; G43.909 Migraine, unspecified, not intractable, without status migrainosus; F32.9 Major depressive disorder, single episode, unspecified; Z79.51 Long term (current) use of inhaled steroids; Z79.1 Long term (current) use of non-steroidal anti-inflammatories (NSAID); Z79.899 Other long term (current) drug therapy; Z88.0 Allergy status to penicillin; Z88.8 Allergy status to other drugs, medicaments and biological substances; Z91.81 History of falling | CPT/HCPCS: G0463 ==

== ENCOUNTER → 2018-01-19 | Outpatient (REF) | payer OTHER | LOC: M SFHCWAGY 15:27 | DX: R87.613 High grade squamous intraepithelial lesion on cytologic smear of cervix (HGSIL) (principal) ==

== ENCOUNTER 2018-02-07 18:07 | Emergency (ER) | payer OTHER ==
[2018-02-07] MEDS: PERCOCET 5MG/325MG TAB PO (18:45)
[2018-02-07] MEDS: IBUPROFEN 800 MG TAB PO (18:45)
== END 2018-02-07 18:56 | disposition home or self-care (01) ==
LOC: M ED 18:07
DX: M54.17 Radiculopathy, lumbosacral region (principal); E03.9 Hypothyroidism, unspecified; I10 Essential (primary) hypertension; J45.909 Unspecified asthma, uncomplicated; M08.90 Juvenile arthritis, unspecified, unspecified site; H81.09 Meniere's disease, unspecified ear; F39 Unspecified mood [affective] disorder; Z82.0 Family history of epilepsy and other diseases of the nervous system; Z88.0 Allergy status to penicillin; Z88.8 Allergy status to other drugs, medicaments and biological substances; Z79.899 Other long term (current) drug therapy
CPT/HCPCS: 99282

== ENCOUNTER → 2018-02-20 | Outpatient (CLI) | payer OTHER | LOC: M PAIN 10:30 | DX: M54.40 Lumbago with sciatica, unspecified side (principal); M50.20 Other cervical disc displacement, unspecified cervical region; G89.29 Other chronic pain; F43.10 Post-traumatic stress disorder, unspecified; E03.9 Hypothyroidism, unspecified; G43.909 Migraine, unspecified, not intractable, without status migrainosus; Z79.51 Long term (current) use of inhaled steroids; Z79.899 Other long term (current) drug therapy; Z88.0 Allergy status to penicillin; Z88.8 Allergy status to other drugs, medicaments and biological substances; Z86.79 Personal history of other diseases of the circulatory system | CPT/HCPCS: G0463 ==

== ENCOUNTER → 2018-03-04 | Outpatient (REF) | payer OTHER | LOC: M LAB REF 17:04 | DX: E03.9 Hypothyroidism, unspecified (principal) ==

== ENCOUNTER 2018-03-08 23:48 | Inpatient (IN) | payer OTHER, MEDICAID ==
[2018-03-09 01:54] LABS: HEMATOCRIT 31.4 % (36.0-47.0); HEMOGLOBIN 10.4 g/dl (12.0-15.5); MEAN CORPUSCULAR HEMOGLOBIN 28.8 pg (27.0-33.0); MEAN CORPUSCULAR HGB CONC 33.1 g/dl (32.0-36.5); PLATELET COUNT, AUTOMATED 222 10^3/uL (150-450); RED BLOOD COUNT 3.61 10^6/uL (4.00-5.40); RED CELL DISTRIBUTION WIDTH 13.9 % (11.5-14.5); WHITE BLOOD COUNT 7.6 10^3/uL (4.0-10.0)
[2018-03-09 02:04] LABS: CONTROL LINE HCG INT CTR LINE PRESENT; HCG, SERUM QUALITATIVE NEGATIVE (NEGATIVE)
[2018-03-09 02:18] LABS: ACETAMINOPHEN LEVEL < 2.0 UG/ML (10.0-30.0); ALBUMIN 3.4 GM/DL (3.2-5.2); ALBUMIN/GLOBULIN RATIO 1.17 (1.00-1.93); ALKALINE PHOSPHATASE 63 U/L (45-117); ALT/SGPT 19 U/L (12-78); ANION GAP 9 MEQ/L (8-16); AST/SGOT 15 U/L (7-37); BILIRUBIN,DIRECT 0.1 MG/DL (0.0-0.2); BILIRUBIN,TOTAL 0.3 MG/DL (0.2-1.0); BLOOD UREA NITROGEN 18 MG/DL (7-18); CALCIUM LEVEL 8.3 MG/DL (8.5-10.1); CARBON DIOXIDE LEVEL 28 MEQ/L (21-32); CHLORIDE LEVEL 103 MEQ/L (98-107); CREATININE FOR GFR 0.92 MG/DL (0.55-1.30); ETHYL ALCOHOL (ETHANOL) 0.003 % (0.000-0.010); GLOMERULAR FILTRATION RATE > 60.0 (>60); GLUCOSE, FASTING 90 MG/DL (70-100); POTASSIUM SERUM 2.8 MEQ/L (3.5-5.1); SALICYLATE LEVEL < 1.7 MG/DL (5.0-30.0); SODIUM LEVEL 140 MEQ/L (136-145); TOTAL PROTEIN 6.3 GM/DL (6.4-8.2)
[2018-03-09 02:28] LABS: AMPHETAMINES LEVEL URINE NEGATIVE (NEGATIVE); BARBITURATES URINE NEGATIVE (NEGATIVE); BENZODIAZEPINES URINE NEGATIVE (NEGATIVE); CANNABINOIDS URINE NEGATIVE (NEGATIVE); COCAINE METABOLITE URINE NEGATIVE (NEGATIVE); METHADONE URINE NEGATIVE (NEGATIVE); OPIATES URINE NEGATIVE (NEGATIVE); PHENCYCLIDINE URINE NEGATIVE (NEGATIVE)
[2018-03-09] MEDS: POTASSIUM CHLORIDE 10 MEQ SR TABLET PO ×2 (03:52→07:08)
[2018-03-09] MEDS: LEVOTHYROXINE 75MCG TABLET (0.075MG) PO ×2 (06:00→15:55)
[2018-03-09 06:30] LABS: ANION GAP 7 MEQ/L (8-16); BLOOD UREA NITROGEN 17 MG/DL (7-18); CALCIUM LEVEL 8.3 MG/DL (8.5-10.1); CARBON DIOXIDE LEVEL 30 MEQ/L (21-32); CHLORIDE LEVEL 103 MEQ/L (98-107); CREATININE FOR GFR 0.87 MG/DL (0.55-1.30); GLOMERULAR FILTRATION RATE > 60.0 (>60); GLUCOSE, FASTING 91 MG/DL (70-100); SODIUM LEVEL 140 MEQ/L (136-145)
[2018-03-09] MEDS: ACETAMINOPHEN TAB 650MG DOSE (2X325MG) PO (09:00)
[2018-03-09] MEDS: CETIRIZINE (ZyrTEC) 10 MG TAB PO ×2 (09:00→15:55)
[2018-03-09] MEDS ORDERED: MAALOX 30 ML SUSP *UDC PO (12:30)
[2018-03-09] MEDS ORDERED: MOM 30ML SUSPENSION UDC PO (12:30)
[2018-03-09] MEDS ORDERED: ALBUTEROL 90 MCG/ACT 8GM HFA INHALER INH ×2 (14:45→16:00)
[2018-03-09] MEDS: IBUPROFEN 400 MG TAB PO (15:56)
[2018-03-09] MEDS: DYAZIDE 37.5/25 CAP (TRIAM/HCTZ) PO (17:06)
[2018-03-09] MEDS: CHLORTHALIDONE 12.5MG PER 1/2 TABLET PO (17:06)
[2018-03-09] MEDS: tiZANidine 4 MG TAB PO (17:08)
[2018-03-09] MEDS: QUEtiapine FUMARATE 50 MG TAB PO (21:54)
[2018-03-09] MEDS: lamoTRIgine 100MG TAB PO (21:54)
[2018-03-09] MEDS: DULoxetine 30 MG CAP (CYMBALTA) PO (21:54)
[2018-03-09] MEDS: LOSARTAN 50 MG TAB PO (21:55)
[2018-03-10] MEDS: LEVOTHYROXINE 75MCG TABLET (0.075MG) PO (06:20)
[2018-03-10 07:43] LABS: HEMATOCRIT 35.9 % (36.0-47.0); HEMOGLOBIN 11.8 g/dl (12.0-15.5); MEAN CORPUSCULAR HGB CONC 32.9 g/dl (32.0-36.5); MEAN CORPUSCULAR VOLUME 88.2 fl (80.0-96.0); PLATELET COUNT, AUTOMATED 246 10^3/uL (150-450); RED BLOOD COUNT 4.07 10^6/uL (4.00-5.40); RED CELL DISTRIBUTION WIDTH 13.8 % (11.5-14.5); WHITE BLOOD COUNT 7.3 10^3/uL (4.0-10.0)
[2018-03-10 08:35] LABS: ALBUMIN 3.7 GM/DL (3.2-5.2); ALBUMIN/GLOBULIN RATIO 1.12 (1.00-1.93); ALKALINE PHOSPHATASE 68 U/L (45-117); ALT/SGPT 22 U/L (12-78); ANION GAP 9 MEQ/L (8-16); AST/SGOT 16 U/L (7-37); BILIRUBIN,TOTAL 0.4 MG/DL (0.2-1.0); BLOOD UREA NITROGEN 18 MG/DL (7-18); CALCIUM LEVEL 8.7 MG/DL (8.5-10.1); CARBON DIOXIDE LEVEL 30 MEQ/L (21-32); CHLORIDE LEVEL 101 MEQ/L (98-107); GLOMERULAR FILTRATION RATE > 60.0 (>60); GLUCOSE, FASTING 82 MG/DL (70-100); POTASSIUM SERUM 3.5 MEQ/L (3.5-5.1); SODIUM LEVEL 140 MEQ/L (136-145)
[2018-03-10] MEDS ORDERED: LOSARTAN 50 MG TAB PO (09:00)
[2018-03-10] MEDS: CHLORTHALIDONE 12.5MG PER 1/2 TABLET PO (09:03)
[2018-03-10] MEDS: DYAZIDE 37.5/25 CAP (TRIAM/HCTZ) PO (09:03)
[2018-03-10] MEDS: CETIRIZINE (ZyrTEC) 10 MG TAB PO (09:03)
[2018-03-10] MEDS: LOSARTAN 50 MG TAB PO ×2 (09:03→21:00)
[2018-03-10] MEDS: lamoTRIgine 100MG TAB PO ×2 (09:03→20:59)
[2018-03-10] MEDS: ADVAIR HFA 45/21MCG INHALER INH ×2 (09:04→21:00)
[2018-03-10] MEDS: IBUPROFEN 400 MG TAB PO ×2 (09:07→16:43)
[2018-03-10] MEDS: FLUoxetine 20 MG CAP PO (13:25)
[2018-03-10] MEDS: hydrOXYzine 50 MG TAB PO (13:26)
[2018-03-10] MEDS: QUEtiapine FUMARATE 50 MG TAB PO (21:00)
[2018-03-11] MEDS: LEVOTHYROXINE 75MCG TABLET (0.075MG) PO (06:13)
[2018-03-11 07:50] LABS: ANION GAP 8 MEQ/L (8-16); BLOOD UREA NITROGEN 18 MG/DL (7-18); CALCIUM LEVEL 8.6 MG/DL (8.5-10.1); CARBON DIOXIDE LEVEL 31 MEQ/L (21-32); CHLORIDE LEVEL 102 MEQ/L (98-107); CREATININE FOR GFR 0.86 MG/DL (0.55-1.30); GLOMERULAR FILTRATION RATE > 60.0 (>60); GLUCOSE, FASTING 95 MG/DL (70-100); POTASSIUM SERUM 3.5 MEQ/L (3.5-5.1); SODIUM LEVEL 141 MEQ/L (136-145)
[2018-03-11] MEDS: CETIRIZINE (ZyrTEC) 10 MG TAB PO (09:37)
[2018-03-11] MEDS: ADVAIR HFA 45/21MCG INHALER INH ×2 (09:39→21:51)
[2018-03-11] MEDS: IBUPROFEN 400 MG TAB PO ×2 (09:41→21:50)
[2018-03-11] MEDS: CHLORTHALIDONE 12.5MG PER 1/2 TABLET PO (09:41)
[2018-03-11] MEDS: LOSARTAN 50 MG TAB PO ×2 (09:41→21:50)
[2018-03-11] MEDS: DYAZIDE 37.5/25 CAP (TRIAM/HCTZ) PO (09:41)
[2018-03-11] MEDS: lamoTRIgine 100MG TAB PO ×2 (09:41→21:50)
[2018-03-11] MEDS: FLUoxetine 20 MG CAP PO (09:41)
[2018-03-11] MEDS: hydrOXYzine 50 MG TAB PO (12:03)
[2018-03-11] MEDS: QUEtiapine FUMARATE 50 MG TAB PO (21:51)
[2018-03-12] MEDS: LEVOTHYROXINE 75MCG TABLET (0.075MG) PO (06:07)
[2018-03-12] MEDS: DYAZIDE 37.5/25 CAP (TRIAM/HCTZ) PO (09:45)
[2018-03-12] MEDS: ADVAIR HFA 45/21MCG INHALER INH ×2 (09:45→21:39)
[2018-03-12] MEDS: LOSARTAN 50 MG TAB PO ×2 (09:46→21:43)
[2018-03-12] MEDS: IBUPROFEN 400 MG TAB PO ×2 (09:46→17:14)
[2018-03-12] MEDS: CETIRIZINE (ZyrTEC) 10 MG TAB PO (09:46)
[2018-03-12] MEDS: FLUoxetine 20 MG CAP PO (09:46)
[2018-03-12] MEDS: lamoTRIgine 100MG TAB PO ×2 (09:47→21:44)
[2018-03-12] MEDS: CHLORTHALIDONE 12.5MG PER 1/2 TABLET PO (09:47)
[2018-03-12] MEDS: hydrOXYzine 50 MG TAB PO (20:48)
[2018-03-12] MEDS: QUEtiapine FUMARATE 50 MG TAB PO (21:44)
[2018-03-13] MEDS: LEVOTHYROXINE 75MCG TABLET (0.075MG) PO (06:06)
[2018-03-13] MEDS: CETIRIZINE (ZyrTEC) 10 MG TAB PO (09:13)
[2018-03-13] MEDS: DYAZIDE 37.5/25 CAP (TRIAM/HCTZ) PO (09:14)
[2018-03-13] MEDS: lamoTRIgine 100MG TAB PO (09:14)
[2018-03-13] MEDS: CHLORTHALIDONE 12.5MG PER 1/2 TABLET PO (09:14)
[2018-03-13] MEDS: LOSARTAN 50 MG TAB PO (09:14)
[2018-03-13] MEDS: FLUoxetine 20 MG CAP PO (09:14)
[2018-03-13] MEDS: ADVAIR HFA 45/21MCG INHALER INH (09:14)
[2018-03-14] MEDS ORDERED: VITAMIN D 50,000 UNITS CAPSULE (ERGOCALCIFEROL 1.25MG) PO (09:00)
== END 2018-03-13 09:45 | disposition home or self-care (01) | DRG 755 ==
LOC: M ED 23:48 → M ED INP 03-09 10:39 → M PSY 03-09 11:45
DX: F43.10 Post-traumatic stress disorder, unspecified (principal); I10 Essential (primary) hypertension; R45.851 Suicidal ideations; F43.21 Adjustment disorder with depressed mood; Z79.899 Other long term (current) drug therapy; Z88.0 Allergy status to penicillin; Z88.8 Allergy status to other drugs, medicaments and biological substances; Z98.51 Tubal ligation status; R94.31 Abnormal electrocardiogram [ECG] [EKG]; M54.2 Cervicalgia; M54.5 Low back pain; J45.909 Unspecified asthma, uncomplicated; E03.9 Hypothyroidism, unspecified; E87.6 Hypokalemia; M25.519 Pain in unspecified shoulder

== ENCOUNTER → 2018-04-10 | Outpatient (CLI) | payer OTHER | LOC: M RAD 10:30 | DX: M54.40 Lumbago with sciatica, unspecified side (principal) | CPT/HCPCS: 72110 ==

== ENCOUNTER → 2018-04-14 | Outpatient (CLI) | payer OTHER | LOC: M PAIN 10:00 | DX: M54.40 Lumbago with sciatica, unspecified side (principal); M50.20 Other cervical disc displacement, unspecified cervical region; G89.29 Other chronic pain; F43.10 Post-traumatic stress disorder, unspecified; E03.9 Hypothyroidism, unspecified; G43.909 Migraine, unspecified, not intractable, without status migrainosus; F32.9 Major depressive disorder, single episode, unspecified; E66.01 Morbid (severe) obesity due to excess calories; Z68.41 Body mass index [BMI] 40.0-44.9, adult; Z79.51 Long term (current) use of inhaled steroids; Z79.899 Other long term (current) drug therapy; Z88.0 Allergy status to penicillin; Z88.8 Allergy status to other drugs, medicaments and biological substances; Z86.69 Personal history of other diseases of the nervous system and sense organs; Z86.79 Personal history of other diseases of the circulatory system | CPT/HCPCS: G0463 ==

== ENCOUNTER 2018-04-20 10:16 | Outpatient (RCR) | payer OTHER | END 2018-05-15 | LOC: M PT 10:16 | DX: Z51.89 Encounter for other specified aftercare (principal); M54.40 Lumbago with sciatica, unspecified side; M50.20 Other cervical disc displacement, unspecified cervical region | CPT/HCPCS: 97010 ==

== ENCOUNTER → 2018-05-26 | Outpatient (CLI) | payer OTHER | LOC: M PAIN 09:45 | DX: M54.40 Lumbago with sciatica, unspecified side (principal); M50.20 Other cervical disc displacement, unspecified cervical region; G89.29 Other chronic pain; F43.10 Post-traumatic stress disorder, unspecified; E03.9 Hypothyroidism, unspecified; G43.909 Migraine, unspecified, not intractable, without status migrainosus; F32.9 Major depressive disorder, single episode, unspecified; Z79.51 Long term (current) use of inhaled steroids; Z79.1 Long term (current) use of non-steroidal anti-inflammatories (NSAID); Z79.899 Other long term (current) drug therapy; Z88.0 Allergy status to penicillin; Z88.8 Allergy status to other drugs, medicaments and biological substances; Z86.69 Personal history of other diseases of the nervous system and sense organs | CPT/HCPCS: G0463 ==

== ENCOUNTER 2018-05-27 10:29 | Outpatient (RCR) | payer OTHER | END 2018-06-14 | LOC: M PT 10:29 | DX: Z51.89 Encounter for other specified aftercare (principal); M54.40 Lumbago with sciatica, unspecified side; M50.20 Other cervical disc displacement, unspecified cervical region | CPT/HCPCS: 97110 ==

== ENCOUNTER → 2018-06-03 | Outpatient (REF) | payer OTHER | LOC: M SMT 09:54 | DX: D06.0 Carcinoma in situ of endocervix (principal) ==

== ENCOUNTER → 2018-06-15 | Outpatient (REF) | payer OTHER | LOC: M LAB REF 18:12 | DX: E03.9 Hypothyroidism, unspecified (principal) ==

== ENCOUNTER → 2018-06-17 | Outpatient (REF) | payer OTHER ==
[2018-06-17 12:50] LABS: ANION GAP 11 MEQ/L (8-16); BLOOD UREA NITROGEN 17 MG/DL (7-18); CALCIUM LEVEL 8.8 MG/DL (8.5-10.1); CARBON DIOXIDE LEVEL 29 MEQ/L (21-32); CHLORIDE LEVEL 100 MEQ/L (98-107); CREATININE FOR GFR 1.02 MG/DL (0.55-1.30); GLOMERULAR FILTRATION RATE > 60.0 (>60); GLUCOSE, FASTING 90 MG/DL (70-100); POTASSIUM SERUM 2.9 MEQ/L (3.5-5.1); SODIUM LEVEL 140 MEQ/L (136-145)
== END ==
LOC: M LABDRAW1 11:24
DX: M23.352 Other meniscus derangements, posterior horn of lateral meniscus, left knee (principal); Z01.812 Encounter for preprocedural laboratory examination

== ENCOUNTER → 2018-06-23 | Outpatient (REF) | payer OTHER ==
[2018-06-23 17:56] LABS: POTASSIUM SERUM 3.3 MEQ/L (3.5-5.1)
== END ==
LOC: M LABDRAW1 17:13
DX: E87.6 Hypokalemia (principal)

== ENCOUNTER 2018-06-30 22:39 | Emergency (ER) | payer OTHER ==
[2018-07-01] MEDS: APIXABAN 5 MG TAB (ELIQUIS) PO (00:18)
== END 2018-07-01 00:22 | disposition home or self-care (01) ==
LOC: M ED 07-01 00:22
DX: I82.432 Acute embolism and thrombosis of left popliteal vein (principal); Z98.890 Other specified postprocedural states; I10 Essential (primary) hypertension; R51 Headache; E03.9 Hypothyroidism, unspecified; F41.9 Anxiety disorder, unspecified; F32.9 Major depressive disorder, single episode, unspecified; Z88.0 Allergy status to penicillin; Z88.8 Allergy status to other drugs, medicaments and biological substances; Z79.899 Other long term (current) drug therapy
CPT/HCPCS: 99283

== ENCOUNTER → 2018-06-30 | Outpatient (CLI) | payer OTHER | LOC: M RAD 14:37 | DX: R60.0 Localized edema (principal) | CPT/HCPCS: 93971 ==

== ENCOUNTER 2018-07-03 13:17 | Inpatient (IN) | payer OTHER ==
[2018-07-03 14:27] LABS: BASO % 0.5 % (0.0-1.0); EOS # 0.2 10^3/uL (0.0-0.50); EOS % 2.4 % (0.0-3.0); HEMATOCRIT 34.1 % (36.0-47.0); HEMOGLOBIN 11.2 g/dl (12.0-15.5); IMMATURE GRANULOCYTE % 0.3 % (0-3.0); LYMPH # 1.7 10^3/uL (1.5-4.5); LYMPH % 18.7 % (24.0-44.0); MEAN CORPUSCULAR HEMOGLOBIN 29.2 pg (27.0-33.0); MEAN CORPUSCULAR HGB CONC 32.8 g/dl (32.0-36.5); MONO # 0.7 10^3/uL (0.0-0.8); MONO % 7.8 % (0.0-5.0); NEUTROPHILS # 6.2 10^3/uL (1.8-7.7); NEUTROPHILS % 70.3 % (36.0-66.0); PLATELET COUNT, AUTOMATED 252 10^3/uL (150-450); RED BLOOD COUNT 3.83 10^6/uL (4.00-5.40); RED CELL DISTRIBUTION WIDTH 13.9 % (11.5-14.5); WHITE BLOOD COUNT 8.8 10^3/uL (4.0-10.0)
[2018-07-03 14:39] LABS: INR 1.27; PROTHROMBIN TIME 16.1 SECONDS (12.1-14.4)
[2018-07-03 14:40] LABS: PARTIAL THROMBOPLASTIN TIME 40.7 SECONDS (25.4-37.6)
[2018-07-03 14:50] LABS: LACTIC ACID SEPSIS PROTOCOL 1.1 MMOL/L (0.4-2.0)
[2018-07-03 14:51] LABS: ALBUMIN 3.8 GM/DL (3.2-5.2); ALBUMIN/GLOBULIN RATIO 1.15 (1.00-1.93); ALKALINE PHOSPHATASE 78 U/L (45-117); ALT/SGPT 16 U/L (12-78); ANION GAP 9 MEQ/L (8-16); AST/SGOT 11 U/L (7-37); BILIRUBIN,DIRECT 0.1 MG/DL (0.0-0.2); BILIRUBIN,TOTAL 0.4 MG/DL (0.2-1.0); BLOOD UREA NITROGEN 20 MG/DL (7-18); C REACTIVE PROTEIN QUANTITATIV 1.31 MG/DL (0.00-0.30); CALCIUM LEVEL 9.4 MG/DL (8.5-10.1); CARBON DIOXIDE LEVEL 27 MEQ/L (21-32); CHLORIDE LEVEL 106 MEQ/L (98-107); CK-MB VALUE MASS < 1.0 NG/ML (<3.6); CPK CREATINE PHOSPHOKINASE 98 U/L (26-192); CREATININE FOR GFR 1.01 MG/DL (0.55-1.30); GLOMERULAR FILTRATION RATE > 60.0 (>60); GLUCOSE, FASTING 97 MG/DL (70-100); MB/CK RELATIVE INDEX 1.02 (< OR =4); POTASSIUM SERUM 3.3 MEQ/L (3.5-5.1); SODIUM LEVEL 142 MEQ/L (136-145); TOTAL PROTEIN 7.1 GM/DL (6.4-8.2); TROPONIN I < 0.02 NG/ML (< 0.10)
[2018-07-03] MEDS ORDERED: ISOVUE-370 76% 100ML VIAL (Q9967) As Ordered (14:59)
[2018-07-03 15:07] LABS: ERYTHROCYTE SEDIMENTATION RATE 43 mm/hr (0-20)
[2018-07-03 15:18] LABS: FREE T4 1.25 NG/DL (0.76-1.46); MAGNESIUM LEVEL 2.1 MG/DL (1.8-2.4)
[2018-07-03] MEDS: POTASSIUM CHLORIDE 10 MEQ SR TABLET PO ×2 (15:21→22:05)
[2018-07-03 16:41] LABS: CK-MB VALUE MASS < 1.0 NG/ML (<3.6); CPK CREATINE PHOSPHOKINASE 88 U/L (26-192); MB/CK RELATIVE INDEX 1.14 (< OR =4); TROPONIN I < 0.02 NG/ML (< 0.10)
[2018-07-03] MEDS: ENOXAPARIN 120 MG/0.8 ML SYR (J1650) SC (17:46)
[2018-07-03] MEDS ORDERED: hydrOXYzine 50 MG TAB PO (18:45)
[2018-07-03] MEDS ORDERED: ONDANSETRON 4MG/2ML VIAL (J2405) IV (18:45)
[2018-07-03] MEDS: LOSARTAN 50 MG TAB PO (22:06)
[2018-07-03] MEDS: QUEtiapine FUMARATE 50 MG TAB PO (22:06)
[2018-07-03] MEDS: tiZANidine 4 MG TAB PO (22:06)
[2018-07-03] MEDS: lamoTRIgine 100MG TAB PO (22:06)
[2018-07-03] MEDS: WARFARIN SOD 5 MG TAB PO (22:13)
[2018-07-04] MEDS: BISACODYL 5 MG TAB PO (05:48)
[2018-07-04] MEDS: LEVOTHYROXINE 75MCG TABLET (0.075MG) PO (05:48)
[2018-07-04 06:05] LABS: HEMATOCRIT 32.3 % (36.0-47.0); HEMOGLOBIN 10.6 g/dl (12.0-15.5); MEAN CORPUSCULAR HEMOGLOBIN 28.6 pg (27.0-33.0); MEAN CORPUSCULAR HGB CONC 32.8 g/dl (32.0-36.5); MEAN CORPUSCULAR VOLUME 87.3 fl (80.0-96.0); PLATELET COUNT, AUTOMATED 244 10^3/uL (150-450); RED CELL DISTRIBUTION WIDTH 13.9 % (11.5-14.5); WHITE BLOOD COUNT 5.9 10^3/uL (4.0-10.0)
[2018-07-04 06:13] LABS: INR 1.15; PROTHROMBIN TIME 14.9 SECONDS (12.1-14.4)
[2018-07-04 06:34] LABS: ANION GAP 8 MEQ/L (8-16); BLOOD UREA NITROGEN 22 MG/DL (7-18); CALCIUM LEVEL 9.1 MG/DL (8.5-10.1); CARBON DIOXIDE LEVEL 26 MEQ/L (21-32); CHLORIDE LEVEL 107 MEQ/L (98-107); CREATININE FOR GFR 0.91 MG/DL (0.55-1.30); GLOMERULAR FILTRATION RATE > 60.0 (>60); GLUCOSE, FASTING 115 MG/DL (70-100); POTASSIUM SERUM 3.5 MEQ/L (3.5-5.1); SODIUM LEVEL 141 MEQ/L (136-145)
[2018-07-04] MEDS: lamoTRIgine 100MG TAB PO ×2 (08:59→20:20)
[2018-07-04] MEDS: CETIRIZINE (ZyrTEC) 10 MG TAB PO (08:59)
[2018-07-04] MEDS: DYAZIDE 37.5/25 CAP (TRIAM/HCTZ) PO (08:59)
[2018-07-04] MEDS: FLUoxetine 20 MG CAP PO (08:59)
[2018-07-04] MEDS: tiZANidine 4 MG TAB PO ×3 (08:59→20:21)
[2018-07-04] MEDS: CHLORTHALIDONE 12.5MG PER 1/2 TABLET PO (09:00)
[2018-07-04] MEDS ORDERED: ENOXAPARIN 40 MG/0.4 ML SYRINGE (J1650) SC (09:00)
[2018-07-04] MEDS: LOSARTAN 50 MG TAB PO ×2 (09:00→20:21)
[2018-07-04] MEDS: ENOXAPARIN 40 MG/0.4 ML SYRINGE (J1650) SC ×2 (09:07→20:20)
[2018-07-04] MEDS: WARFARIN SOD 2.5 MG TAB PO (18:07)
[2018-07-04] MEDS: WARFARIN SOD 5 MG TAB PO (18:08)
[2018-07-04] MEDS: QUEtiapine FUMARATE 50 MG TAB PO (20:20)
[2018-07-05 05:47] LABS: HEMATOCRIT 33.3 % (36.0-47.0); HEMOGLOBIN 10.9 g/dl (12.0-15.5); MEAN CORPUSCULAR HEMOGLOBIN 28.7 pg (27.0-33.0); MEAN CORPUSCULAR HGB CONC 32.7 g/dl (32.0-36.5); MEAN CORPUSCULAR VOLUME 87.6 fl (80.0-96.0); PLATELET COUNT, AUTOMATED 254 10^3/uL (150-450); RED CELL DISTRIBUTION WIDTH 13.5 % (11.5-14.5); WHITE BLOOD COUNT 8.3 10^3/uL (4.0-10.0)
[2018-07-05] MEDS: LEVOTHYROXINE 75MCG TABLET (0.075MG) PO (05:53)
[2018-07-05 05:57] LABS: INR 1.05; PROTHROMBIN TIME 13.8 SECONDS (12.1-14.4)
[2018-07-05 06:16] LABS: ANION GAP 8 MEQ/L (8-16); BLOOD UREA NITROGEN 23 MG/DL (7-18); CALCIUM LEVEL 8.4 MG/DL (8.5-10.1); CARBON DIOXIDE LEVEL 27 MEQ/L (21-32); CHLORIDE LEVEL 103 MEQ/L (98-107); CREATININE FOR GFR 1.04 MG/DL (0.55-1.30); GLOMERULAR FILTRATION RATE > 60.0 (>60); GLUCOSE, FASTING 85 MG/DL (70-100); POTASSIUM SERUM 3.1 MEQ/L (3.5-5.1); SODIUM LEVEL 138 MEQ/L (136-145)
[2018-07-05] MEDS: ENOXAPARIN 40 MG/0.4 ML SYRINGE (J1650) SC ×2 (10:16→20:49)
[2018-07-05] MEDS: POTASSIUM CHLORIDE 10 MEQ SR TABLET PO (10:19)
[2018-07-05] MEDS: DYAZIDE 37.5/25 CAP (TRIAM/HCTZ) PO (10:20)
[2018-07-05] MEDS: CHLORTHALIDONE 12.5MG PER 1/2 TABLET PO (10:20)
[2018-07-05] MEDS: FLUoxetine 20 MG CAP PO (10:20)
[2018-07-05] MEDS: LOSARTAN 50 MG TAB PO ×2 (10:21→20:48)
[2018-07-05] MEDS: lamoTRIgine 100MG TAB PO ×2 (10:21→20:48)
[2018-07-05] MEDS: tiZANidine 4 MG TAB PO ×3 (10:21→20:48)
[2018-07-05] MEDS: CETIRIZINE (ZyrTEC) 10 MG TAB PO (10:22)
[2018-07-05] MEDS: WARFARIN SOD 5 MG TAB PO ×2 (17:14)
[2018-07-05] MEDS: QUEtiapine FUMARATE 50 MG TAB PO (20:48)
[2018-07-06] MEDS: LEVOTHYROXINE 75MCG TABLET (0.075MG) PO (05:33)
[2018-07-06 06:00] LABS: HEMATOCRIT 31.1 % (36.0-47.0); HEMOGLOBIN 10.1 g/dl (12.0-15.5); MEAN CORPUSCULAR HEMOGLOBIN 28.5 pg (27.0-33.0); MEAN CORPUSCULAR HGB CONC 32.5 g/dl (32.0-36.5); MEAN CORPUSCULAR VOLUME 87.9 fl (80.0-96.0); PLATELET COUNT, AUTOMATED 242 10^3/uL (150-450); RED BLOOD COUNT 3.54 10^6/uL (4.00-5.40); RED CELL DISTRIBUTION WIDTH 13.3 % (11.5-14.5)
[2018-07-06 06:09] LABS: PROTHROMBIN TIME 15.3 SECONDS (12.1-14.4)
[2018-07-06 06:35] LABS: ANION GAP 8 MEQ/L (8-16); BLOOD UREA NITROGEN 21 MG/DL (7-18); CALCIUM LEVEL 8.6 MG/DL (8.5-10.1); CARBON DIOXIDE LEVEL 27 MEQ/L (21-32); CHLORIDE LEVEL 104 MEQ/L (98-107); GLOMERULAR FILTRATION RATE > 60.0 (>60); GLUCOSE, FASTING 81 MG/DL (70-100); POTASSIUM SERUM 3.3 MEQ/L (3.5-5.1); SODIUM LEVEL 139 MEQ/L (136-145)
[2018-07-06] MEDS: ENOXAPARIN 40 MG/0.4 ML SYRINGE (J1650) SC (09:55)
[2018-07-06] MEDS: POTASSIUM CHLORIDE 10 MEQ SR TABLET PO ×2 (09:56→13:53)
[2018-07-06] MEDS: tiZANidine 4 MG TAB PO ×3 (09:56→20:31)
[2018-07-06] MEDS: FLUoxetine 20 MG CAP PO (09:56)
[2018-07-06] MEDS: lamoTRIgine 100MG TAB PO ×2 (09:56→20:31)
[2018-07-06] MEDS: CHLORTHALIDONE 12.5MG PER 1/2 TABLET PO (09:56)
[2018-07-06] MEDS: LOSARTAN 50 MG TAB PO ×2 (09:57→20:31)
[2018-07-06] MEDS: CETIRIZINE (ZyrTEC) 10 MG TAB PO (09:57)
[2018-07-06] MEDS: DYAZIDE 37.5/25 CAP (TRIAM/HCTZ) PO (09:57)
[2018-07-06] MEDS: ACETAMINOPHEN TAB 650MG DOSE (2X325MG) PO (13:52)
[2018-07-06] MEDS: WARFARIN SOD 5 MG TAB PO (16:50)
[2018-07-06] MEDS: QUEtiapine FUMARATE 50 MG TAB PO (20:31)
[2018-07-06] MEDS: ENOXAPARIN 120 MG/0.8 ML SYR (J1650) SC (20:31)
[2018-07-07] MEDS: LEVOTHYROXINE 75MCG TABLET (0.075MG) PO (06:11)
[2018-07-07 07:13] LABS: MEAN CORPUSCULAR HEMOGLOBIN 28.3 pg (27.0-33.0); MEAN CORPUSCULAR HGB CONC 32.3 g/dl (32.0-36.5); MEAN CORPUSCULAR VOLUME 87.8 fl (80.0-96.0); PLATELET COUNT, AUTOMATED 245 10^3/uL (150-450); RED BLOOD COUNT 3.53 10^6/uL (4.00-5.40); RED CELL DISTRIBUTION WIDTH 13.6 % (11.5-14.5); WHITE BLOOD COUNT 6.8 10^3/uL (4.0-10.0)
[2018-07-07 07:22] LABS: INR 1.43; PROTHROMBIN TIME 17.7 SECONDS (12.1-14.4)
[2018-07-07 07:40] LABS: ANION GAP 7 MEQ/L (8-16); BLOOD UREA NITROGEN 17 MG/DL (7-18); CALCIUM LEVEL 8.5 MG/DL (8.5-10.1); CARBON DIOXIDE LEVEL 26 MEQ/L (21-32); CHLORIDE LEVEL 107 MEQ/L (98-107); CREATININE FOR GFR 0.91 MG/DL (0.55-1.30); GLOMERULAR FILTRATION RATE > 60.0 (>60); GLUCOSE, FASTING 95 MG/DL (70-100); POTASSIUM SERUM 3.6 MEQ/L (3.5-5.1); SODIUM LEVEL 140 MEQ/L (136-145)
[2018-07-07] MEDS: ENOXAPARIN 120 MG/0.8 ML SYR (J1650) SC ×2 (10:10→21:00)
[2018-07-07] MEDS: POTASSIUM CHLORIDE 10 MEQ SR TABLET PO (10:10)
[2018-07-07] MEDS: CHLORTHALIDONE 12.5MG PER 1/2 TABLET PO (10:11)
[2018-07-07] MEDS: lamoTRIgine 100MG TAB PO ×2 (10:11→20:54)
[2018-07-07] MEDS: DYAZIDE 37.5/25 CAP (TRIAM/HCTZ) PO (10:11)
[2018-07-07] MEDS: tiZANidine 4 MG TAB PO ×3 (10:11→20:53)
[2018-07-07] MEDS: FLUoxetine 20 MG CAP PO (10:12)
[2018-07-07] MEDS: LOSARTAN 50 MG TAB PO ×2 (10:14→20:54)
[2018-07-07] MEDS: ACETAMINOPHEN TAB 650MG DOSE (2X325MG) PO (10:14)
[2018-07-07] MEDS: CETIRIZINE (ZyrTEC) 10 MG TAB PO (10:43)
[2018-07-07] MEDS: WARFARIN SOD 5 MG TAB PO (16:35)
[2018-07-07] MEDS: QUEtiapine FUMARATE 50 MG TAB PO (20:53)
[2018-07-08] MEDS: LEVOTHYROXINE 75MCG TABLET (0.075MG) PO (05:06)
[2018-07-08 07:07] LABS: HEMATOCRIT 33.8 % (36.0-47.0); HEMOGLOBIN 10.8 g/dl (12.0-15.5); MEAN CORPUSCULAR HEMOGLOBIN 28.3 pg (27.0-33.0); MEAN CORPUSCULAR VOLUME 88.5 fl (80.0-96.0); PLATELET COUNT, AUTOMATED 254 10^3/uL (150-450); RED BLOOD COUNT 3.82 10^6/uL (4.00-5.40); RED CELL DISTRIBUTION WIDTH 13.7 % (11.5-14.5); WHITE BLOOD COUNT 6.7 10^3/uL (4.0-10.0)
[2018-07-08 07:27] LABS: ANION GAP 8 MEQ/L (8-16); BLOOD UREA NITROGEN 17 MG/DL (7-18); CALCIUM LEVEL 8.8 MG/DL (8.5-10.1); CARBON DIOXIDE LEVEL 26 MEQ/L (21-32); CHLORIDE LEVEL 103 MEQ/L (98-107); CREATININE FOR GFR 0.95 MG/DL (0.55-1.30); GLOMERULAR FILTRATION RATE > 60.0 (>60); GLUCOSE, FASTING 84 MG/DL (70-100); INR 1.73; POTASSIUM SERUM 3.7 MEQ/L (3.5-5.1); PROTHROMBIN TIME 20.5 SECONDS (12.1-14.4); SODIUM LEVEL 137 MEQ/L (136-145)
[2018-07-08] MEDS: CHLORTHALIDONE 12.5MG PER 1/2 TABLET PO (08:30)
[2018-07-08] MEDS: CETIRIZINE (ZyrTEC) 10 MG TAB PO (08:31)
[2018-07-08] MEDS: LOSARTAN 50 MG TAB PO ×2 (08:31→21:46)
[2018-07-08] MEDS: tiZANidine 4 MG TAB PO ×3 (08:31→21:45)
[2018-07-08] MEDS: DYAZIDE 37.5/25 CAP (TRIAM/HCTZ) PO (08:31)
[2018-07-08] MEDS: ENOXAPARIN 120 MG/0.8 ML SYR (J1650) SC ×2 (08:31→21:46)
[2018-07-08] MEDS: lamoTRIgine 100MG TAB PO ×2 (08:31→21:45)
[2018-07-08] MEDS: FLUoxetine 20 MG CAP PO (08:31)
[2018-07-08] MEDS: WARFARIN SOD 5 MG TAB PO (16:25)
[2018-07-08] MEDS: QUEtiapine FUMARATE 50 MG TAB PO (21:45)
[2018-07-09] MEDS: LEVOTHYROXINE 75MCG TABLET (0.075MG) PO (06:37)
[2018-07-09 07:11] LABS: HEMATOCRIT 33.8 % (36.0-47.0); HEMOGLOBIN 10.9 g/dl (12.0-15.5); MEAN CORPUSCULAR HEMOGLOBIN 28.6 pg (27.0-33.0); MEAN CORPUSCULAR HGB CONC 32.2 g/dl (32.0-36.5); MEAN CORPUSCULAR VOLUME 88.7 fl (80.0-96.0); PLATELET COUNT, AUTOMATED 256 10^3/uL (150-450); RED BLOOD COUNT 3.81 10^6/uL (4.00-5.40); RED CELL DISTRIBUTION WIDTH 13.6 % (11.5-14.5); WHITE BLOOD COUNT 6.7 10^3/uL (4.0-10.0)
[2018-07-09 07:24] LABS: INR 2.06; PROTHROMBIN TIME 23.6 SECONDS (12.1-14.4)
[2018-07-09 07:36] LABS: ANION GAP 7 MEQ/L (8-16); BLOOD UREA NITROGEN 21 MG/DL (7-18); CALCIUM LEVEL 8.7 MG/DL (8.5-10.1); CARBON DIOXIDE LEVEL 27 MEQ/L (21-32); CHLORIDE LEVEL 104 MEQ/L (98-107); CREATININE FOR GFR 0.97 MG/DL (0.55-1.30); GLOMERULAR FILTRATION RATE > 60.0 (>60); GLUCOSE, FASTING 83 MG/DL (70-100); POTASSIUM SERUM 3.5 MEQ/L (3.5-5.1); SODIUM LEVEL 138 MEQ/L (136-145)
[2018-07-09] MEDS: lamoTRIgine 100MG TAB PO (09:00)
[2018-07-09] MEDS: CETIRIZINE (ZyrTEC) 10 MG TAB PO (09:00)
[2018-07-09] MEDS: LOSARTAN 50 MG TAB PO (09:00)
[2018-07-09] MEDS: FLUoxetine 20 MG CAP PO (09:00)
[2018-07-09] MEDS: CHLORTHALIDONE 12.5MG PER 1/2 TABLET PO (09:01)
[2018-07-09] MEDS: ENOXAPARIN 120 MG/0.8 ML SYR (J1650) SC (09:01)
[2018-07-09] MEDS: DYAZIDE 37.5/25 CAP (TRIAM/HCTZ) PO (09:01)
[2018-07-09] MEDS: tiZANidine 4 MG TAB PO (09:01)
== END 2018-07-09 14:45 | disposition home or self-care (01) | DRG 134 ==
LOC: M MS4PR 07-06 20:59 → M ED 13:17 → M ED INP 18:35 → M MSPAV 20:35
DX: I26.99 Other pulmonary embolism without acute cor pulmonale (principal); E66.01 Morbid (severe) obesity due to excess calories; I10 Essential (primary) hypertension; H81.09 Meniere's disease, unspecified ear; E03.9 Hypothyroidism, unspecified; F41.9 Anxiety disorder, unspecified; I82.442 Acute embolism and thrombosis of left tibial vein; Z79.01 Long term (current) use of anticoagulants; Z79.899 Other long term (current) drug therapy; Z88.0 Allergy status to penicillin; Z88.8 Allergy status to other drugs, medicaments and biological substances; Z68.39 Body mass index [BMI] 39.0-39.9, adult

== ENCOUNTER → 2018-07-14 | Outpatient (REF) | payer OTHER ==
[2018-07-14 17:58] LABS: BASO % 0.5 % (0.0-1.0); EOS # 0.2 10^3/uL (0.0-0.50); EOS % 2.2 % (0.0-3.0); HEMATOCRIT 40.2 % (36.0-47.0); HEMOGLOBIN 12.8 g/dl (12.0-15.5); IMMATURE GRANULOCYTE % 0.5 % (0-3.0); LYMPH # 2.2 10^3/uL (1.5-4.5); LYMPH % 25.6 % (24.0-44.0); MEAN CORPUSCULAR HEMOGLOBIN 28.1 pg (27.0-33.0); MEAN CORPUSCULAR HGB CONC 31.8 g/dl (32.0-36.5); MEAN CORPUSCULAR VOLUME 88.4 fl (80.0-96.0); MONO # 0.7 10^3/uL (0.0-0.8); NEUTROPHILS # 5.4 10^3/uL (1.8-7.7); NEUTROPHILS % 63.2 % (36.0-66.0); PLATELET COUNT, AUTOMATED 371 10^3/uL (150-450); RED BLOOD COUNT 4.55 10^6/uL (4.00-5.40); RED CELL DISTRIBUTION WIDTH 13.6 % (11.5-14.5); WHITE BLOOD COUNT 8.5 10^3/uL (4.0-10.0)
[2018-07-14 18:04] LABS: INR 4.35; PROTHROMBIN TIME 42.7 SECONDS (12.1-14.4)
[2018-07-14 18:09] LABS: ALBUMIN 4.2 GM/DL (3.2-5.2); ALKALINE PHOSPHATASE 96 U/L (45-117); ALT/SGPT 65 U/L (12-78); ANION GAP 9 MEQ/L (8-16); AST/SGOT 20 U/L (7-37); BILIRUBIN,TOTAL 0.3 MG/DL (0.2-1.0); BLOOD UREA NITROGEN 20 MG/DL (7-18); CALCIUM LEVEL 8.9 MG/DL (8.5-10.1); CARBON DIOXIDE LEVEL 28 MEQ/L (21-32); CHLORIDE LEVEL 101 MEQ/L (98-107); CREATININE FOR GFR 1.21 MG/DL (0.55-1.30); GLOMERULAR FILTRATION RATE 53.3 (>60); GLUCOSE, FASTING 88 MG/DL (70-100); POTASSIUM SERUM 3.3 MEQ/L (3.5-5.1); SODIUM LEVEL 138 MEQ/L (136-145); TOTAL PROTEIN 7.7 GM/DL (6.4-8.2)
== END ==
LOC: M LAB REF 17:40
DX: I26.99 Other pulmonary embolism without acute cor pulmonale (principal)

== ENCOUNTER → 2018-07-22 | Outpatient (REF) | payer OTHER ==
[2018-07-22 16:30] LABS: INR 4.17; PROTHROMBIN TIME 41.3 SECONDS (12.1-14.4)
== END ==
LOC: M LAB REF 15:50
DX: I26.99 Other pulmonary embolism without acute cor pulmonale (principal)

== ENCOUNTER → 2018-07-27 | Outpatient (CLI) | payer OTHER | LOC: M PAIN 10:00 | DX: M54.40 Lumbago with sciatica, unspecified side (principal); M50.20 Other cervical disc displacement, unspecified cervical region; G89.29 Other chronic pain; E03.9 Hypothyroidism, unspecified; G43.909 Migraine, unspecified, not intractable, without status migrainosus; F43.10 Post-traumatic stress disorder, unspecified; F32.9 Major depressive disorder, single episode, unspecified; H81.09 Meniere's disease, unspecified ear; Z79.51 Long term (current) use of inhaled steroids; Z79.01 Long term (current) use of anticoagulants; Z79.899 Other long term (current) drug therapy; Z88.0 Allergy status to penicillin; Z88.8 Allergy status to other drugs, medicaments and biological substances | CPT/HCPCS: G0463 ==

== ENCOUNTER → 2018-07-31 | Outpatient (REF) | payer OTHER ==
[2018-07-31 17:19] LABS: INR 4.95; PROTHROMBIN TIME 47.4 SECONDS (12.1-14.4)
== END ==
LOC: M LAB REF 15:57
DX: I26.99 Other pulmonary embolism without acute cor pulmonale (principal)
CPT/HCPCS: 85610

== ENCOUNTER → 2018-08-10 | Outpatient (REF) | payer OTHER ==
[2018-08-10 17:48] LABS: INR 1.91; PROTHROMBIN TIME 22.2 SECONDS (12.1-14.4)
== END ==
LOC: M LAB REF 16:20
DX: I26.99 Other pulmonary embolism without acute cor pulmonale (principal)

== ENCOUNTER → 2018-08-13 | Outpatient (REF) | payer OTHER ==
[2018-08-13 18:04] LABS: INR 3.02
== END ==
LOC: M LAB REF 16:23
DX: I26.99 Other pulmonary embolism without acute cor pulmonale (principal)
CPT/HCPCS: 85610

== ENCOUNTER → 2018-08-17 | Outpatient (REF) | payer OTHER ==
[2018-08-17 17:31] LABS: PROTHROMBIN TIME 48.2 SECONDS (12.1-14.4)
[2018-08-17 18:23] LABS: INR 5.07
== END ==
LOC: M LAB REF 14:21
DX: I26.99 Other pulmonary embolism without acute cor pulmonale (principal); Z51.81 Encounter for therapeutic drug level monitoring; Z79.01 Long term (current) use of anticoagulants
CPT/HCPCS: 85610

== ENCOUNTER → 2018-08-25 | Outpatient (REF) | payer OTHER ==
[2018-08-25 13:04] LABS: INR 2.09; PROTHROMBIN TIME 23.9 SECONDS (12.1-14.4)
== END ==
LOC: M LAB REF 12:17
DX: I26.99 Other pulmonary embolism without acute cor pulmonale (principal)

== ENCOUNTER → 2018-08-28 | Outpatient (REF) | payer OTHER, MEDICAID ==
[~2018-08-28] MED LIST changes: +ABIL10TA9 PO; +ABIL1TAB11 PO; +ACET1TAB55 PO; +ALBU17IN INH; +ALEV220C2 PO; +AMIT25TA PO; +ARIP1TAB6 PO; +ARIP5TA PO; +BACL10TA GT; +BACL10TA2 PO; +BENA25CA2 PO; +BREO1INH INH; +BUPR150T5 PO; +CELE40TA PO; +CHLO125TA PO; +CHLO25TA PO; +CLAR1TAB2 PO; +COUM1TAB19 PO; +CYMB60CA3 PO; +D3-5CAP; +DILT1CAP48 PO; +DRIS50003 PO; +DULO1CAP; +DULO1CAP3 PO; +DULO30CA PO; +ELIQ5TAB PO; +ELIQ5TAB4 PO; +FLUO20CA19 PO; +GABA-843 PO; +GABA-845 PO; +GABA600T PO; +HYDRO50TAB PO; +HYZA100T2 PO; +IBUP80TA PO; +IMIT50TA PO; +IMIT6INJ SC; +INDE60CA4 PO; -ISOVUE-M 300 61% 15ML VIAL (Q9967) As Ordered; +K-TA10TA2 PO; +KETO10TAB PO; +KLOR20TA42 PO; +LAMO10TA PO; +LASI40TA PO; +LEVO25TA5 PO; +LEVO75TA4 PO; -LIDOCAINE 1% SDV INJ 30 ML VIAL As Ordered; +LORA-243 PO; +LOSA100T8 PO; +LOSA50TA5 PO; +LOSA50TA73 PO; +LYRI75CA PO; +MECL-68 PO; +MOBI15TA PO; +MOBI4TAB PO; +NORCOTAB PO; +PERC5TAB12 PO; +PROP60TA14 PO; +QUET5TAB PO; +REME15TA PO; +ROBA750T4 PO; +SYMB16INH INH; +TIZA4CAP PO; +TRAM50TA2 PO; +TRAZ-160 PO; +TRIA37.53 PO; +TYLE500T78 PO; +TYLETAB14 PO; +ZONI25CA2 PO; +ZYRT10CA PO; -diazePAM 5 MG TAB As Ordered; +flexeril PO; -methylPREDNISolone SUSP 40 MG/ML (DEPO-medrol) VIAL (J1030) As Ordered; -oxyCODONE 5MG TAB As Ordered; +vitamin d PO
[2018-08-28 14:29] LABS: INR 2.7; PROTHROMBIN TIME 29.3 SECONDS (12.1-14.4)
== END ==
LOC: M LAB REF 12:54
PROVIDERS: ATTEND Family Medicine Addiction Medicine
DX: I26.99 Other pulmonary embolism without acute cor pulmonale (principal)

== ENCOUNTER → 2018-09-10 | Outpatient (REF) | payer OTHER, MEDICAID ==
[~2018-09-10] MED LIST changes: -GABA600T PO; +GABA600T4 PO; -LASI40TA PO; +LASI40TA9 PO; -LOSA50TA73 PO; +LOSA50TA88 PO
[2018-09-10 18:17] LABS: INR 4.89; PROTHROMBIN TIME 46.8 SECONDS (12.1-14.4)
== END ==
LOC: M LAB REF 16:25
PROVIDERS: ATTEND Family Medicine Addiction Medicine
DX: I26.99 Other pulmonary embolism without acute cor pulmonale (principal)

== ENCOUNTER → 2018-09-17 | Outpatient (REF) | payer OTHER, MEDICAID ==
[2018-09-17 17:57] LABS: INR 2.39; PROTHROMBIN TIME 26.6 SECONDS (12.1-14.4)
== END ==
LOC: M LAB REF 17:15
PROVIDERS: ATTEND Family Medicine Addiction Medicine
DX: I26.99 Other pulmonary embolism without acute cor pulmonale (principal)

== ENCOUNTER → 2018-09-23 | Outpatient (REF) | payer OTHER, MEDICAID ==
[2018-09-23 17:44] LABS: INR 2.57; PROTHROMBIN TIME 28.1 SECONDS (12.1-14.4)
== END ==
LOC: M LAB REF 17:01
PROVIDERS: ATTEND Family Medicine Addiction Medicine
DX: I26.99 Other pulmonary embolism without acute cor pulmonale (principal)

== ENCOUNTER → 2018-09-24 | Outpatient (CLI) | payer OTHER ==
--- NOTE | 2018-10-12 01:28 | ECWPNPC ---
PATIENT NAME: LILIAM JACKSON : 1980 GENDER: FEMALE VISIT DATE: 09/24/2018 DISCHARGE DATE: 09/24/18 1024 VISIT LOCKED DATE TIME: PHYSICIAN: JUAN GRIER RESOURCE: JUAN GRIER REASON FOR APPOINTMENT 1. NECK HISTORY OF PRESENT ILLNESS HISTORY OF PRESENT ILLNESS: HERE FOR F/U OF CHRONIC GENERALIZED BACK PAIN.CHIEF AREA OF PAIN IS LEFT UPPER BACK.PAIN IS AGGREVATED IN THIS REGION BY ROJM OF LEFT ARM AND NECK.RATING PAIN VAS 8/10.DISCUSSED MEDICATION AND TEATMENT OPTIONS.WILL BE EVALUATD BY RHEUMATOLOGY LOCALLY IN NOVEMBER. PAIN THE PATIENT DESCRIBES THE PAIN... FALL RISK SCREENING: SCREENING :NO FALLS IN THE PAST YEAR CURRENT MEDICATIONS TAKING ALBUTEROL SULFATE HFA 108 (90 BASE) MCG/ACT AEROSOL SOLUTION 2 PUFFS NEEDED INHALATION EVERY 4 HRS TAKING CHLORTHALIDONE 12.5 12.5MG TABLET ORAL ONCE DAILY TAKING LAMOTRIGINE 100 MG TABLET 1 TABLET ORALLY BID TAKING LEVOTHYROXINE SODIUM 75 MCG TABLET 1 TABLET ORALLY ONCE A DAY TAKING LOSARTAN POTASSIUM 50 MG TABLET 1 TAB(S) ORALLY TWICE A DAY TAKING VITAMIN D 30956 U TABLET 1 TABLET ORALLY ONCE A WEEK TAKING SEROQUEL 50 MG TABLET 1 TABLET ORALLY ONCE A DAY TAKING BREO ELLIPTA 100-25 MCG/INH AEROSOL POWDER BREATH ACTIVATED 1 PUFF INHALATION ONCE A DAY TAKING ZYRTEC ALLERGY 10 MG TABLET 1 TABLET ORALLY ONCE A DAY TAKING SYMBICORT 160-4.5 MCG/ACT AEROSOL 2 PUFFS INHALATION TWICE A DAY TAKING COLACE 100 MG CAPSULE 1 CAPSULE NEEDED ORALLY BID TAKING ACETAMINOPHEN 500 MG TABLET 1-2 ORALLY Q8H PRN TAKING TRIAMTERENE-HCTZ 37.5-25 MG TABLET 1 TAB ORALLY DAILY TAKING HYDROXYZINE HCL 50 MG TABLET 1 TAB ORALLY DAILY PRN TAKING ARIPIPRAZOLE 5 MG TABLET 1 TAB ORALLY DAILY TAKING FLUOXETINE 20 MGS 1 CAP ORALLY DAILY TAKING COUMADIN 1 TAB ORAL DAILY TAKING TIZANIDINE HCL 4 MG TABLET 1 TABLET NEEDED ORALLY THREE TIMES A DAY NOT-TAKING ALEVE 220 MG TABLET 2 ORALLY EVERY 12 HRS NEEDED NOT-TAKING IBUPROFEN 800 MG TABLET 1 TABLET WITH FOOD OR MILK NEEDED ORALLY THREE TIMES A DAY NEEDED MEDICATION LIST REVIEWED AND RECONCILED WITH THE PATIENT PAST MEDICAL HISTORY PTSD HYPOTHYROID CHRONIC 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 DEPRESSION BORDERLINE PERSONALITY DISORDER TACHYCARDIA MENIERES DISEASE ALLERGIES PREDNISON: SEVERE ANGER: ALLERGY PENICILLIN (FOR ALLERGIES USE ONLY): PT UNSURE: ALLERGY TRAZODONE HCL: SEVERE ANGER: ALLERGY SURGICAL HISTORY LASIK BOTH EYES CARDIAC CATHETERIZATION 1997 D&C X2 1998,1999 CERVICAL CERCLAGE X3 BTL 2008 COLPOSCOPY WITH LILIAM 11/18/16 & 01/19/18 LEFT KNEE MENISCUIS REPAIR AND FIXED ANOTHER LIGAMENT TOO - HOSPITALIZED FOR DVT AND 2 DAYS LATER PE JUN 2018 FAMILY HISTORY FATHER: ALIVE 65 YRS, MS MOTHER: 54 YRS, CHF, DIAGNOSED WITH HYPERTENSION, HEART DISEASE, PSYCHIATRIC CONDITIONS 2 SON(S) , 1 DAUGHTER(S) . PT UNAWARE OF CANCER HX IN THE FAMILY. FATHER WAS ADOPTEDMOM-CHF,UNDIAGNOSED PSHCH ISSUES2 SONS FROM SMOKE INHALATIONDAUGHTER-HEALTHY. SOCIAL HISTORY GENERAL: TOBACCO USE ARE YOU A: NONSMOKER . BMI CARE GOAL FOLLOW-UP ABOVE NORMAL BMI FOLLOW-UPDIETARY NEEDS EDUCATION, GIVING ENCOURAGEMENT TO EXERCISE, WEIGHT MONITORING ALCOHOL SCREENING DID YOU HAVE A DRINK CONTAINING ALCOHOL IN THE PAST YEAR?NO POINTS0 INTERPRETATIONNEGATIVE RECREATIONAL DRUG USE DRUG USE?NO CAFFEINE CAFFEINE USE?YES HOW OFTEN AND HOW MUCH? OCCASIONAL COFFEE SEXUAL HX HAD SEX IN THE LAST 12 MONTHS (VAGINAL, ORAL, OR ANAL)?YES WITHMEN ONLY USE PROTECTION?NO PREVENTION STRATEGIES DISCUSSED:CONDOMS HAVE YOU EVER HAD AN STD?YES CHLAMYDIA?YES GC?NO SYPHILIS?NO HERPES?NO OTHER?YES LMP:11/06/17 HIV / HEP-C SCREENING HIV TEST OFFERED TO PATIENT:YES DATE OFFERED:10/17/2016 TEST ACCEPTED:NO REASON:PATIENT DECLINED TENRIISM [id number] NONE LANGUAGE [place]. 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 DIET: REGULAR. EXERCISE: WALKS 1/2 MILE DAILY. MARITAL STATUS: SINGLE. OTHERS AT HOME: CHILD. NEW PATIENT PAIN DIARY TODAY'S VISITNOTES FROM 0-10, WHAT LEVEL IS YOUR PAIN TODAY?8 PAIN CLINIC PFS, CLERGY, PUBLIC HEALTH REFERRALS PFS REFERRAL NEEDED?NO CLERGY REFERRAL NEEDED?NO PUBLIC HEALTH REFERRAL NEEDED?NO HAS THE PATIENT BEEN EDUCATED REGARDING HIS/HER PLAN OF CARE?YES HAS THE PATIENT BEEN EDUCATED REGARDING PAIN, THE RISK FOR PAIN, THE IMPORTANCE OF EFFECTIVE PAIN MANAGEMENT, AND THE PAIN ASSESSMENT PROCESS?YES ADVANCE DIRECTIVE ADVANCE DIRECTIVE DISCUSSED WITH PATIENT:YES 09/24/18 PT. DOES NOT HAVE ANY ADVANCED DIRECTIVES AND SHE DECLINES INFORMATION AND ASSISTANCE WITH FORM AT THIS TIME BV 12/02/17 1230 REVIEWED LAS04/14/18 1058 REVIEWED WITH PT. ADREVIEWED WITH PT 05/26/18 BVREVIEWED WITH PT 09/24/18 0952 BV. HOSPITALIZATION/MAJOR DIAGNOSTIC PROCEDURE SURGERY RELATED MENTAL HEALTH 03/2018 REVIEW OF SYSTEMS REVIEWED BY: PROVIDER: JUAN CRYSTAL . CONSTITUTIONAL: ANY CHANGE IN YOUR MEDICAL CONDITION? NO . CHILLS NO . FEVER NO . INFECTION: DO YOU HAVE NEW INFECTIONS? NO . DO YOU HAVE HISTORY OF MRSA? NO . MUSCULOSKELETAL: ANY NEW PATTERNS OF PAIN OR NUMBNESS? NO . GASTROENTEROLOGY: ANY NEW CHANGE IN BOWEL CONTROL? NO . GENITOURINARY: ANY NEW CHANGE IN BLADDER CONTROL? NO . IS THERE A CHANCE YOU COULD BE ? NO . HEMATOLOGY/LYMPH: DO YOU TAKE ANY BLOOD THINNERS? (FOR EXAMPLE- COUMADIN, PLAVIX, AGGRENOX, PLATEL, PRADAXA, OR XARELTO) COUMADIN . WHEN WAS YOUR LAST DOSE? DATE: TIME: . NEUROLOGY: HAVE YOU FALLEN IN THE PAST 6 MONTHS? STATES SHE HAD A FALL ABOUT A WEEK AGO, DUE TO LOSS OF BALANCE. DENIES ANY INJURIES OR ED VISIT ASSOCIATED WITH FALL. . ANY NEW EXTREMITY NUMBNESS OR WEAKNESS? NO . CARDIOLOGY: DO YOU HAVE A PACEMAKER OR DEFIBRILLATOR? NO . RESPIRATORY: HAVE YOU BEEN SICK IN THE PAST WEEK? NO . FEVER NO . FLU LIKE SYMPTOMS? NO . COUGH NO . INTEGUMENTARY: DO YOU HAVE ANY RASHES OR OPEN SORES? NO . ALLERGIC/IMMUNO: ARE YOU ALLERGIC TO SHELLFISH OR IV DYE? NO . ANY NEW ALLERGIES? NO . PSYCHIATRIC: DO YOU HAVE THOUGHTS OF HURTING YOURSELF OR SOMEONE ELSE? NO . ARE YOU ABUSED, NEGLECTED, OR IN AN UNSAFE ENVIRONMENT? NO . ENDOCRINOLOGY: ARE YOU DIABETIC? NO . OTHER: DO YOU NEED ANY PRESCRIPTIONS? NO . IF YES, PLEASE LIST: ____ . ANY NEW PROBLEMS WITH YOUR MEDICATIONS? NO . WHEN DID YOU LAST EAT? ____ . WHEN DID YOU LAST DRINK? ____ . WHAT DID YOU LAST DRINK? ____ . NAME OF PERSON DRIVING YOU HOME? ____ . DO YOU HAVE ANY OTHER QUESTIONS OR CONCERNS NO . VITAL SIGNS WT 254.6 LBS, HT 65", BMI 42.36 INDEX, BP 159/94 MM HG, HR 65 /MIN, RR 18 /MIN, TEMP 97.0 F, OXYGEN SAT % 97%, NA INITIALS AW 0940, REVIEWED BY: BV. EXAMINATION GENERAL EXAMINATION: GENERAL APPEARANCE:AWAKE,ALERT ,PLEAASANT . PSYCHAFFECT NORMAL . LUNGS:LUNG SHAH ARE CLEAR TO AUSCULTATION BILATERALLY. GOOD MOVEMENT OF AIR . HEART:S1, S2 IN A REGULAR RATE AND RHYTHM. NO SIGNIFICANT MURMURS, RUBS OR GALLOPS NOTED . CERVICALTRIGGER POINTS: LEFT RHOMBOID ,TRAPEZIUS,SCAPULAR..PAIN IS AGGREVATED WITH ROJM NECK AND USE OF RIGHT ARM. ASSESSMENTS MYALGIA, OTHER SITE - M79.18 (PRIMARY) GENERALIZED PAIN - R52 TREATMENT MYALGIA, OTHER SITE CONTINUE ACETAMINOPHEN TABLET, 500 MG, 1-2, ORALLY, Q8H PRN CONTINUE TIZANIDINE HCL TABLET, 4 MG, 1 TABLET NEEDED, ORALLY, THREE TIMES A DAY NOTES: TPI LEFT TRAP,SCAPULAR.RHOMBOID. PREVENTIVE MEDICINE PAIN CLINIC TEACHING: PROCEDURE TEACHING PT GIVEN WRITTEN AND VERBAL PRE-PROCEDURE INSTRUCTIONS. PT VERBALIZES UNDERSTANDING STATING SHE HAS HAD THIS PROCEDURE BEFORE. 09-24-18 1050. PROCEDURE CODES FA211 ESTABILISHED PATIENT [facility] CHARGE DISPOSITION & COMMUNICATION FOLLOW UP POST (REASON: TPI LEFT TRAP,SCAPULAR.RHOMBOID) ELECTRONICALLY SIGNED BY BONILLA BRYANT ON 10/11/2018 AT 07:28 PM EST DISCLAIMER : THIS IS A VISIT SUMMARY EXTRACTED FROM THE [employer] CHART. IT IS NOT A COPY OF THE [employer] PROGRESS NOTE. OLIVIA
== END ==
LOC: M PAIN 10:15
PROVIDERS: ATTEND Nurse Practitioner Family
DX: M79.18 Myalgia, other site (principal); M54.2 Cervicalgia; M54.6 Pain in thoracic spine; E03.9 Hypothyroidism, unspecified; G43.909 Migraine, unspecified, not intractable, without status migrainosus; F32.9 Major depressive disorder, single episode, unspecified; F43.10 Post-traumatic stress disorder, unspecified; E66.01 Morbid (severe) obesity due to excess calories; Z68.41 Body mass index [BMI] 40.0-44.9, adult; Z79.51 Long term (current) use of inhaled steroids; Z79.01 Long term (current) use of anticoagulants; Z79.899 Other long term (current) drug therapy; Z88.0 Allergy status to penicillin; Z88.8 Allergy status to other drugs, medicaments and biological substances; Z86.79 Personal history of other diseases of the circulatory system; Z86.69 Personal history of other diseases of the nervous system and sense organs

== ENCOUNTER → 2018-10-19 | Outpatient (REF) | payer OTHER ==
[2018-10-19 13:58] LABS: INR 4.31; PROTHROMBIN TIME 42.4 SECONDS (12.1-14.4)
== END ==
LOC: M LAB REF 12:24
PROVIDERS: ATTEND Family Medicine Addiction Medicine
DX: I26.99 Other pulmonary embolism without acute cor pulmonale (principal)

== ENCOUNTER → 2018-10-27 | Outpatient (CLI) | payer OTHER ==
[~2018-10-27] MED LIST changes: +BUPIVACAINE HCL 0.25% 10 ML VIAL As Ordered ONE; +BUPIVACAINE HCL 0.25% 30 ML VIAL As Ordered ONE; +TRIAMCINOLONE ACETONIDE SUSP 40 MG/ML VIAL (J3301) As Ordered ONE; +diazePAM 5 MG TAB As Ordered ONE; +oxyCODONE 5MG TAB As Ordered ONE
--- NOTE | 2018-11-12 00:13 | ECWPNPC ---
PATIENT NAME: LILIAM JACKSON : 1980 GENDER: FEMALE VISIT DATE: 10/27/2018 DISCHARGE DATE: 10/27/18 1619 VISIT LOCKED DATE TIME: PHYSICIAN: DOTTIE MCINTYRE MD RESOURCE: DOTTIE MCINTYRE MD REASON FOR APPOINTMENT 1. TPI HISTORY OF PRESENT ILLNESS HISTORY OF PRESENT ILLNESS: PAIN THE PATIENT DESCRIBES THE PAIN... FALL RISK SCREENING: SCREENING :NO FALLS IN THE PAST YEAR CURRENT MEDICATIONS TAKING ALBUTEROL SULFATE HFA 108 (90 BASE) MCG/ACT AEROSOL SOLUTION 2 PUFFS NEEDED INHALATION EVERY 4 HRS, NOTES: 10/26 TAKING CHLORTHALIDONE 12.5 12.5MG TABLET ORAL ONCE DAILY, NOTES: 10/26 TAKING LAMOTRIGINE 100 MG TABLET 1 TABLET ORALLY BID, NOTES: 10/26 10PM TAKING LEVOTHYROXINE SODIUM 75 MCG TABLET 1 TABLET ORALLY ONCE A DAY, NOTES: 10/26 TAKING LOSARTAN POTASSIUM 50 MG TABLET 1 TAB(S) ORALLY TWICE A DAY, NOTES: 10/26 TAKING VITAMIN D 75056 U TABLET 1 TABLET ORALLY ONCE A WEEK, NOTES: FRIDAY TAKING SEROQUEL 50 MG TABLET 1 TABLET ORALLY ONCE A DAY, NOTES: 10/26 TAKING BREO ELLIPTA 100-25 MCG/INH AEROSOL POWDER BREATH ACTIVATED 1 PUFF INHALATION ONCE A DAY, NOTES: 10/26 TAKING ZYRTEC ALLERGY 10 MG TABLET 1 TABLET ORALLY ONCE A DAY, NOTES: 10/26 TAKING SYMBICORT 160-4.5 MCG/ACT AEROSOL 2 PUFFS INHALATION TWICE A DAY, NOTES: 10/26 TAKING COLACE 100 MG CAPSULE 1 CAPSULE NEEDED ORALLY BID, NOTES: 1 WEEK TAKING TRIAMTERENE-HCTZ 37.5-25 MG TABLET 1 TAB ORALLY DAILY, NOTES: 10/26 TAKING HYDROXYZINE HCL 50 MG TABLET 1 TAB ORALLY DAILY PRN, NOTES: 10/26 TAKING ARIPIPRAZOLE 5 MG TABLET 1 TAB ORALLY DAILY, NOTES: 10/26 TAKING FLUOXETINE 20 MGS 1 CAP ORALLY DAILY, NOTES: 10/26PM TAKING COUMADIN 1 TAB ORAL DAILY, NOTES: 10/26 11PM TAKING ACETAMINOPHEN 500 MG TABLET 1-2 ORALLY Q8H PRN, NOTES: 10/26 4PM ARTHRITIS BRAND TAKING TIZANIDINE HCL 4 MG TABLET 1 TABLET NEEDED ORALLY THREE TIMES A DAY, NOTES: 10/26 11PM NOT-TAKING ALEVE 220 MG TABLET 2 ORALLY EVERY 12 HRS NEEDED NOT-TAKING IBUPROFEN 800 MG TABLET 1 TABLET WITH FOOD OR MILK NEEDED ORALLY THREE TIMES A DAY NEEDED MEDICATION LIST REVIEWED AND RECONCILED WITH THE PATIENT PAST MEDICAL HISTORY PTSD HYPOTHYROID CHRONIC 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 DEPRESSION BORDERLINE PERSONALITY DISORDER TACHYCARDIA MENIERES DISEASE DVT 06/2018 PE 06/2018 ALLERGIES PREDNISON: SEVERE ANGER: ALLERGY PENICILLIN (FOR ALLERGIES USE ONLY): PT UNSURE: ALLERGY TRAZODONE HCL: SEVERE ANGER: ALLERGY SURGICAL HISTORY LASIK BOTH EYES CARDIAC CATHETERIZATION 1997 D&C X2 1998,1999 CERVICAL CERCLAGE X3 BTL 2007 COLPOSCOPY WITH LILIAM 11/18/16 & 01/19/18 LEFT KNEE MENISCUIS REPAIR AND FIXED ANOTHER LIGAMENT TOO - HOSPITALIZED FOR DVT AND 2 DAYS LATER PE JUN 2018 FAMILY HISTORY FATHER: ALIVE 65 YRS, MS MOTHER: 54 YRS, CHF, DIAGNOSED WITH HYPERTENSION, HEART DISEASE, PSYCHIATRIC CONDITIONS 2 SON(S) , 1 DAUGHTER(S) . PT UNAWARE OF CANCER HX IN THE FAMILY. FATHER WAS ADOPTEDMOM-CHF,UNDIAGNOSED PSHCH ISSUES2 SONS FROM SMOKE INHALATIONDAUGHTER-HEALTHY. SOCIAL HISTORY GENERAL: TOBACCO USE ARE YOU A: NONSMOKER . BMI CARE GOAL FOLLOW-UP ABOVE NORMAL BMI FOLLOW-UPDIETARY NEEDS EDUCATION, GIVING ENCOURAGEMENT TO EXERCISE, WEIGHT MONITORING ALCOHOL SCREENING DID YOU HAVE A DRINK CONTAINING ALCOHOL IN THE PAST YEAR?NO POINTS0 INTERPRETATIONNEGATIVE RECREATIONAL DRUG USE DRUG USE?NO CAFFEINE CAFFEINE USE?YES HOW OFTEN AND HOW MUCH? OCCASIONAL COFFEE SEXUAL HX HAD SEX IN THE LAST 12 MONTHS (VAGINAL, ORAL, OR ANAL)?YES WITHMEN ONLY PREVENTION STRATEGIES DISCUSSED:CONDOMS USE PROTECTION?NO LMP:11/06/17 HAVE YOU EVER HAD AN STD?YES OTHER?YES HERPES?NO SYPHILIS?NO GC?NO CHLAMYDIA?YES HIV / HEP-C SCREENING HIV TEST OFFERED TO PATIENT:YES DATE OFFERED:10/17/2016 TEST ACCEPTED:NO REASON:PATIENT DECLINED MUSLIM [id number] NONE LANGUAGE FIJIAN. 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 DIET: REGULAR. EXERCISE: WALKS 1/2 MILE DAILY. MARITAL STATUS: SINGLE. OTHERS AT HOME: CHILD. NEW PATIENT PAIN DIARY TODAY'S VISITNOTES FROM 0-10, WHAT LEVEL IS YOUR PAIN TODAY?8 PAIN CLINIC PFS, CLERGY, PUBLIC HEALTH REFERRALS PFS REFERRAL NEEDED?NO CLERGY REFERRAL NEEDED?NO PUBLIC HEALTH REFERRAL NEEDED?NO WAS THE PROVIDER NOTIFIED OF ANY PERTINENT INFO?YES HAS THE PATIENT BEEN EDUCATED REGARDING HIS/HER PLAN OF CARE?YES HAS THE PATIENT BEEN EDUCATED REGARDING PAIN, THE RISK FOR PAIN, THE IMPORTANCE OF EFFECTIVE PAIN MANAGEMENT, AND THE PAIN ASSESSMENT PROCESS?YES ADVANCE DIRECTIVE ADVANCE DIRECTIVE DISCUSSED WITH PATIENT:YES PT. DOES NOT HAVE ANY ADVANCED DIRECTIVES AND SHE DECLINES INFORMATION AND ASSISTANCE WITH FORM AT THIS TIME 12/02/17 1230 REVIEWED LAS04/14/18 1058 REVIEWED WITH PT. ADREVIEWED WITH PT 05/26/18 BVREVIEWED WITH PT 09/24/18 0952 BV. HOSPITALIZATION/MAJOR DIAGNOSTIC PROCEDURE SURGERY RELATED MENTAL HEALTH 03/2018 REVIEW OF SYSTEMS REVIEWED BY: PROVIDER: . CONSTITUTIONAL: ANY CHANGE IN YOUR MEDICAL CONDITION? NO . CHILLS NO . FEVER NO . INFECTION: DO YOU HAVE NEW INFECTIONS? NO . DO YOU HAVE HISTORY OF MRSA? NO . MUSCULOSKELETAL: ANY NEW PATTERNS OF PAIN OR NUMBNESS? NO . GASTROENTEROLOGY: ANY NEW CHANGE IN BOWEL CONTROL? NO . GENITOURINARY: ANY NEW CHANGE IN BLADDER CONTROL? NO . IS THERE A CHANCE YOU COULD BE ? NO . HEMATOLOGY/LYMPH: DO YOU TAKE ANY BLOOD THINNERS? (FOR EXAMPLE- COUMADIN, PLAVIX, AGGRENOX, PLATEL, PRADAXA, OR XARELTO) YES, LAST DOSE 10/26 11PM . WHEN WAS YOUR LAST DOSE? DATE: TIME: . NEUROLOGY: HAVE YOU FALLEN IN THE PAST 12 MONTHS? YES, FELL WHILE AT HOME, SLID ON ICE, NO INJURY, NO REPORT TO ED. . ANY NEW EXTREMITY NUMBNESS OR WEAKNESS? NO . CARDIOLOGY: DO YOU HAVE A PACEMAKER OR DEFIBRILLATOR? NO . RESPIRATORY: HAVE YOU BEEN SICK IN THE PAST WEEK? NO . FEVER NO . FLU LIKE SYMPTOMS? NO . COUGH NO . INTEGUMENTARY: DO YOU HAVE ANY RASHES OR OPEN SORES? NO . ALLERGIC/IMMUNO: ARE YOU ALLERGIC TO IV DYE? NO . ANY NEW ALLERGIES? NO . PSYCHIATRIC: DO YOU HAVE THOUGHTS OF HURTING YOURSELF OR SOMEONE ELSE? NO . ARE YOU ABUSED, NEGLECTED, OR IN AN UNSAFE ENVIRONMENT? NO . ENDOCRINOLOGY: ARE YOU DIABETIC? NO . OTHER: DO YOU NEED ANY PRESCRIPTIONS? NO . IF YES, PLEASE LIST: ____ . ANY NEW PROBLEMS WITH YOUR MEDICATIONS? NO . WHEN DID YOU LAST EAT? 10/26 8:30PM . WHEN DID YOU LAST DRINK? 10/27 8:30AM . WHAT DID YOU LAST DRINK? WATER . NAME OF PERSON DRIVING YOU HOME? ANDREY . DO YOU HAVE ANY OTHER QUESTIONS OR CONCERNS NO . VITAL SIGNS WT 254 LBS, HT 65", BMI 42.26 INDEX, BP 155/94 MM HG, HR 75 /MIN, RR 18 /MIN, TEMP 98.0 F, OXYGEN SAT % 97%, SAFE IN ENV? (Y/N) Y, NA INITIALS AW 1234, REVIEWED BY: DS. ASSESSMENTS MYALGIA, OTHER SITE - M79.18 (PRIMARY) PROCEDURES PN TRIGGER POINT INJECTION WITH STEROIDS PRE PROCEDURE DIAGNOSIS 1. MYALGIA 2. PAIN AT LEFT SHOULDER AREA AND BILATERAL THORACIC AREA POST PROCEDURE DIAGNOSIS 1. MYALGIA 2. PAIN AT LEFT SHOULDER AREA AND BILATERAL THORACIC AREA PROCEDURE TRIGGER POINT INJECTION AT LEFT SHOULDER AREA AND BILATERAL THORACIC AREA SURGEON DR. DOTTIE MCINTYRE BRIDGES AND BUILDINGS SUPERVISOR NONE ANESTHESIA LOCAL PRE PROCEDURE NOTE THE PATIENT HAS A HISTORY OF CHRONIC PAIN AT THE LEFT SHOULDER AREA AND RIGHT AND LEFT THORACIC AREA. I EVALUATE THE PATIENT AND REVIEWED THE CHART. THERE IS EVIDENCE OF BANDS OF TISSUE WITH RESTRICTION OF MOVEMENT AND PRESENCE OF TRIGGER POINT AT THE AFFECTED AREA. I WENT OVER THE RISKS, ALTERNATIVES, AND BENEFITS ASSOCIATED WITH THIS PROCEDURE. THE PATIENT WOULD LIKE TO PROCEED AND GIVE CONSENT TO PERFORMED THE PROCEDURE. THE PATIENT DENIES UNEXPLAINABLE WEIGHT LOSS, FEVER, CHILLS, OR NEW CHANGES IN URINARY OR BOWEL CONTROL DESCRIPTION OF PROCEDURE THE PATIENT WAS BROUGHT TO THE PROCEDURE ROOM AND PLACED IN THE SITTING POSITION. THE AREA WAS CLEANED WITH ALCOHOL. THE PROCEDURE WAS DONE USING ASEPTIC STERILE TECHNIQUE. I CHECKED LATERALITY AND THE LEVEL WHERE THE PROCEDURE WAS GOING TO BE PERFORMED WITH THE PATIENT AND THE SUPPORTING STAFF AT THE MOMENT OF THE TIME OUT IN THE PROCEDURE ROOM. USING A 25-GAUGE NEEDLE, TRIGGER POINTS WERE INJECTED AT THE LEFT SHOULDER AREA AND RIGHT AND LEFT THORACIC AREA WITH A TOTAL OF 40 ML OF BUPIVACAINE 0.25% AND KENALOG 40 MG. THERE WAS NO EVIDENCE OF BLOOD, PARESTHESIA OR CEREBROSPINAL FLUID DURING THE PROCEDURE. THE PATIENT WAS SENT TO THE RECOVERY ROOM. THE PATIENT WAS MOVING THE EXTREMITIES AND DOING WELL. THERE WAS NO COMPLICATION DURING THE PROCEDURE POST PROCEDURE NOTE THE PATIENT WILL BE SEEN IN A FOLLOW UP IN THE NEXT FEW WEEKS. INSTRUCTIONS WERE GIVEN, QUESTIONS WERE ANSWERED, AND THE PATIENT EXPRESSED UNDERSTANDING AND AGREES WITH THE PLAN. I, ALISON LYLES, DOCUMENTED THE ABOVE INFORMATION ACTING A SCRIBE FOR DR. MCINTYRE. I HAVE REVIEWED THE ABOVE DOCUMENT, WRITTEN BY ALISON SNYDER AND I VERIFY THAT IT IS ACCURATE. PROCEDURE CODES 08801 INJECT TRIGGER POINTS 3/> DISPOSITION & COMMUNICATION FOLLOW UP 3 WEEKS ELECTRONICALLY SIGNED BY DOTTIE MCINTYRE MD, MD ON 11/11/2018 AT 06:42 AM EST DISCLAIMER : THIS IS A VISIT SUMMARY EXTRACTED FROM THE [employer] CHART. IT IS NOT A COPY OF THE [employer] PROGRESS NOTE. MTDLiana
== END ==
LOC: M PAIN 12:15
PROVIDERS: ATTEND Anesthesiology
DX: M79.18 Myalgia, other site (principal); M25.512 Pain in left shoulder; M54.6 Pain in thoracic spine; F43.10 Post-traumatic stress disorder, unspecified; G43.909 Migraine, unspecified, not intractable, without status migrainosus; F32.9 Major depressive disorder, single episode, unspecified; E66.01 Morbid (severe) obesity due to excess calories; Z68.41 Body mass index [BMI] 40.0-44.9, adult; Z79.51 Long term (current) use of inhaled steroids; Z79.01 Long term (current) use of anticoagulants; Z79.899 Other long term (current) drug therapy; Z88.0 Allergy status to penicillin; Z88.8 Allergy status to other drugs, medicaments and biological substances; Z86.69 Personal history of other diseases of the nervous system and sense organs; Z86.79 Personal history of other diseases of the circulatory system
CPT/HCPCS: 20553; J3301

== ENCOUNTER → 2018-11-04 | Outpatient (CLI) | payer OTHER ==
[~2018-11-04] MED LIST changes: -BUPIVACAINE HCL 0.25% 10 ML VIAL As Ordered ONE; -BUPIVACAINE HCL 0.25% 30 ML VIAL As Ordered ONE; -TRIAMCINOLONE ACETONIDE SUSP 40 MG/ML VIAL (J3301) As Ordered ONE; -diazePAM 5 MG TAB As Ordered ONE; -oxyCODONE 5MG TAB As Ordered ONE
--- NOTE | 2018-11-17 02:05 | ECWPNPC ---
PATIENT NAME: LILIAM JACKSON : 1980 GENDER: FEMALE VISIT DATE: 11/04/2018 DISCHARGE DATE: 11/04/18 1244 VISIT LOCKED DATE TIME: PHYSICIAN: JUAN GRIER RESOURCE: JUAN GRIER REASON FOR APPOINTMENT 1. POST TPI HISTORY OF PRESENT ILLNESS HISTORY OF PRESENT ILLNESS: HERE FOR POST PROCEDURE F/U.HAD TPI LEFT RHOMBOID,TRAPS,SCAPS ON 10/27/18.REPORTING ONLY A FEW HOURS RELIEF POST PROCEDURE.RATING PAIN VAS 8/10.HISTORY OF ADVERSE REACTIONS TO LYRICA.DISCUSSED MEDICATION OPTIONS.HAS TRIALED MULTIPLE MEDICATIONS AND TREATMENTS OVER THE YEARS WITHOUT SIGNIFICANT IMPROVEMENT. PAIN THE PATIENT DESCRIBES THE PAIN... FALL RISK SCREENING: SCREENING : NO FALLS IN THE PAST YEAR. CURRENT MEDICATIONS TAKING ALBUTEROL SULFATE HFA 108 (90 BASE) MCG/ACT AEROSOL SOLUTION 2 PUFFS NEEDED INHALATION EVERY 4 HRS TAKING CHLORTHALIDONE 12.5 12.5MG TABLET ORAL ONCE DAILY TAKING LAMOTRIGINE 100 MG TABLET 1 TABLET ORALLY BID TAKING LEVOTHYROXINE SODIUM 75 MCG TABLET 1 TABLET ORALLY ONCE A DAY TAKING LOSARTAN POTASSIUM 50 MG TABLET 1 TAB(S) ORALLY TWICE A DAY TAKING VITAMIN D 64863 U TABLET 1 TABLET ORALLY ONCE A WEEK TAKING SEROQUEL 50 MG TABLET 1 TABLET ORALLY ONCE A DAY TAKING BREO ELLIPTA 100-25 MCG/INH AEROSOL POWDER BREATH ACTIVATED 1 PUFF INHALATION ONCE A DAY TAKING ZYRTEC ALLERGY 10 MG TABLET 1 TABLET ORALLY ONCE A DAY TAKING SYMBICORT 160-4.5 MCG/ACT AEROSOL 2 PUFFS INHALATION TWICE A DAY TAKING COLACE 100 MG CAPSULE 1 CAPSULE NEEDED ORALLY BID TAKING TRIAMTERENE-HCTZ 37.5-25 MG TABLET 1 TAB ORALLY DAILY TAKING HYDROXYZINE HCL 50 MG TABLET 1 TAB ORALLY DAILY PRN TAKING ARIPIPRAZOLE 5 MG TABLET 1 TAB ORALLY DAILY TAKING FLUOXETINE 20 MGS 1 CAP ORALLY DAILY TAKING COUMADIN 1 TAB ORAL DAILY TAKING ACETAMINOPHEN 500 MG TABLET 1-2 ORALLY Q8H PRN TAKING TIZANIDINE HCL 4 MG TABLET 1 TABLET NEEDED ORALLY THREE TIMES A DAY UNKNOWN ALEVE 220 MG TABLET 2 ORALLY EVERY 12 HRS NEEDED UNKNOWN IBUPROFEN 800 MG TABLET 1 TABLET WITH FOOD OR MILK NEEDED ORALLY THREE TIMES A DAY NEEDED MEDICATION LIST REVIEWED AND RECONCILED WITH THE PATIENT PAST MEDICAL HISTORY PTSD HYPOTHYROID CHRONIC 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 DEPRESSION BORDERLINE PERSONALITY DISORDER TACHYCARDIA MENIERES DISEASE DVT 06/2018 PE 06/2018 ALLERGIES PREDNISON: SEVERE ANGER: ALLERGY PENICILLIN (FOR ALLERGIES USE ONLY): PT UNSURE: ALLERGY TRAZODONE HCL: SEVERE ANGER: ALLERGY SURGICAL HISTORY LASIK BOTH EYES CARDIAC CATHETERIZATION 1998 D&C X2 1998,1999 CERVICAL CERCLAGE X3 BTL 2008 COLPOSCOPY WITH LILIAM 11/18/16 & 01/19/18 LEFT KNEE MENISCUIS REPAIR AND FIXED ANOTHER LIGAMENT TOO - HOSPITALIZED FOR DVT AND 2 DAYS LATER PE JUN 2018 FAMILY HISTORY FATHER: ALIVE 65 YRS, MS MOTHER: 54 YRS, CHF, DIAGNOSED WITH HYPERTENSION, HEART DISEASE, PSYCHIATRIC CONDITIONS 2 SON(S) , 1 DAUGHTER(S) . PT UNAWARE OF CANCER HX IN THE FAMILY. FATHER WAS ADOPTEDMOM-CHF,UNDIAGNOSED PSHCH ISSUES2 SONS FROM SMOKE INHALATIONDAUGHTER-HEALTHY. SOCIAL HISTORY 12/02/17 1230 REVIEWED LAS04/14/18 1058 REVIEWED WITH PT. ADREVIEWED WITH PT 05/26/18 BVREVIEWED WITH PT 09/24/18 0952 BV. HOSPITALIZATION/MAJOR DIAGNOSTIC PROCEDURE SURGERY RELATED MENTAL HEALTH 03/2018 REVIEW OF SYSTEMS REVIEWED BY: PROVIDER: JUAN CRYSTAL . CONSTITUTIONAL: ANY CHANGE IN YOUR MEDICAL CONDITION? NO . CHILLS NO . FEVER NO . INFECTION: DO YOU HAVE NEW INFECTIONS? NO . DO YOU HAVE HISTORY OF MRSA? NO . MUSCULOSKELETAL: ANY NEW PATTERNS OF PAIN OR NUMBNESS? NO . GASTROENTEROLOGY: ANY NEW CHANGE IN BOWEL CONTROL? NO . GENITOURINARY: ANY NEW CHANGE IN BLADDER CONTROL? NO . IS THERE A CHANCE YOU COULD BE ? NO . HEMATOLOGY/LYMPH: DO YOU TAKE ANY BLOOD THINNERS? (FOR EXAMPLE- COUMADIN, PLAVIX, AGGRENOX, PLATEL, PRADAXA, OR XARELTO) NO . WHEN WAS YOUR LAST DOSE? DATE: TIME: . NEUROLOGY: HAVE YOU FALLEN IN THE PAST 12 MONTHS? NO . ANY NEW EXTREMITY NUMBNESS OR WEAKNESS? NO . CARDIOLOGY: DO YOU HAVE A PACEMAKER OR DEFIBRILLATOR? NO . RESPIRATORY: HAVE YOU BEEN SICK IN THE PAST WEEK? NO . FEVER NO . FLU LIKE SYMPTOMS? NO . COUGH NO . INTEGUMENTARY: DO YOU HAVE ANY RASHES OR OPEN SORES? NO . ALLERGIC/IMMUNO: ARE YOU ALLERGIC TO IV DYE? NO . ANY NEW ALLERGIES? NO . PSYCHIATRIC: DO YOU HAVE THOUGHTS OF HURTING YOURSELF OR SOMEONE ELSE? NO . ARE YOU ABUSED, NEGLECTED, OR IN AN UNSAFE ENVIRONMENT? NO . ENDOCRINOLOGY: ARE YOU DIABETIC? NO . OTHER: DO YOU NEED ANY PRESCRIPTIONS? NO . IF YES, PLEASE LIST: ____ . ANY NEW PROBLEMS WITH YOUR MEDICATIONS? NO . WHEN DID YOU LAST EAT? ____ . WHEN DID YOU LAST DRINK? ____ . WHAT DID YOU LAST DRINK? ____ . NAME OF PERSON DRIVING YOU HOME? ____ . DO YOU HAVE ANY OTHER QUESTIONS OR CONCERNS NO . VITAL SIGNS WT 246 LBS, HT 65", BMI 40.93 INDEX, BP 166/103 MM HG, REPEAT BP 140/82MANAUL, HR 70 /MIN, RR 18 /MIN, TEMP 96.8 F, OXYGEN SAT % 96%, NA INITIALS SC 12:05. EXAMINATION GENERAL EXAMINATION: GENERAL APPEARANCE:AWAKE,ALERT ,PLEAASANT . PSYCHAFFECT NORMAL . LUNGS:LUNG SHAH ARE CLEAR TO AUSCULTATION BILATERALLY. GOOD MOVEMENT OF AIR . HEART:S1, S2 IN A REGULAR RATE AND RHYTHM. NO SIGNIFICANT MURMURS, RUBS OR GALLOPS NOTED . ASSESSMENTS MYALGIA, OTHER SITE - M79.18 (PRIMARY) GENERALIZED PAIN - R52 TREATMENT MYALGIA, OTHER SITE CONTINUE TIZANIDINE HCL TABLET, 4 MG, 1 TABLET NEEDED, ORALLY, THREE TIMES A DAY START GABAPENTIN CAPSULE, 100 MG, 1 CAPSULE, ORALLY, THREE TIMES A DAY, 30 DAY(S), 90, REFILLS 2 PROCEDURE CODES FA211 ESTABILISHED PATIENT [facility] CHARGE DISPOSITION & COMMUNICATION FOLLOW UP 2 MONTHS ELECTRONICALLY SIGNED BY BONILLA BRYANT ON 11/16/2018 AT 01:22 PM EST DISCLAIMER : THIS IS A VISIT SUMMARY EXTRACTED FROM THE [employer] CHART. IT IS NOT A COPY OF THE [employer] PROGRESS NOTE. OLIVIA
== END ==
LOC: M PAIN 14:45
PROVIDERS: ATTEND Nurse Practitioner Family
DX: M79.18 Myalgia, other site (principal); R52 Pain, unspecified; Z86.59 Personal history of other mental and behavioral disorders; E03.9 Hypothyroidism, unspecified; G43.909 Migraine, unspecified, not intractable, without status migrainosus; E66.01 Morbid (severe) obesity due to excess calories; Z68.41 Body mass index [BMI] 40.0-44.9, adult; Z86.69 Personal history of other diseases of the nervous system and sense organs; Z86.79 Personal history of other diseases of the circulatory system; Z88.0 Allergy status to penicillin; Z88.8 Allergy status to other drugs, medicaments and biological substances; Z79.51 Long term (current) use of inhaled steroids; Z79.01 Long term (current) use of anticoagulants; Z79.899 Other long term (current) drug therapy

== ENCOUNTER → 2018-11-05 | Outpatient (REF) | payer OTHER ==
[2018-11-05 12:42] LABS: INR 2.51; PROTHROMBIN TIME 27.6 SECONDS (12.1-14.4)
== END ==
LOC: M LAB REF 11:57
PROVIDERS: ATTEND Family Medicine Addiction Medicine
DX: I26.99 Other pulmonary embolism without acute cor pulmonale (principal); Z79.01 Long term (current) use of anticoagulants

== ENCOUNTER → 2018-12-15 | Outpatient (REF) | payer OTHER ==
[~2018-12-15] MED LIST changes: -ARIP5TA PO; +BACL-60 GT; -BACL10TA GT; -DULO30CA PO; +DULO30CA9 PO; +HYDR-3715 PO; +LAMO100T80 PO; -LAMO10TA PO; -NORCOTAB PO
[2018-12-15 17:37] LABS: INR 4.07; PROTHROMBIN TIME 40.5 SECONDS (12.1-14.4)
== END ==
LOC: M LAB REF 16:54
PROVIDERS: ATTEND Family Medicine Addiction Medicine
DX: I26.99 Other pulmonary embolism without acute cor pulmonale (principal)

== ENCOUNTER → 2019-01-01 | Outpatient (CLI) | payer OTHER ==
[~2019-01-01] MED LIST changes: +DILT120C78 PO; -DILT1CAP48 PO
--- NOTE | 2019-01-20 01:36 | ECWPNPC ---
PATIENT NAME: LILIAM JACKSON : 1980 GENDER: FEMALE VISIT DATE: 01/01/2019 DISCHARGE DATE: 01/01/19 1151 VISIT LOCKED DATE TIME: PHYSICIAN: JUAN GRIER RESOURCE: JUAN GRIER REASON FOR APPOINTMENT 1. NECK HISTORY OF PRESENT ILLNESS HISTORY OF PRESENT ILLNESS: HERE FOR F/U OF CHRONIC GENERALIZED BODY PAIN.RATING PAIN VAS 8/10.DESCRIBES PAIN CONSTANT,ACHING AND STABBING.CHIEF AREA OF PAIN IS NECK.RATING PAIN VAS 8/10. PAIN THE PATIENT DESCRIBES THE PAIN... FALL RISK SCREENING: SCREENING :NO FALLS REPORTED IN THE LAST YEAR CURRENT MEDICATIONS TAKING ALBUTEROL SULFATE HFA 108 (90 BASE) MCG/ACT AEROSOL SOLUTION 2 PUFFS NEEDED INHALATION EVERY 4 HRS TAKING CHLORTHALIDONE 12.5 12.5MG TABLET 1 TABLET ORAL ONCE DAILY TAKING LAMOTRIGINE 100 MG TABLET 1 TABLET ORALLY BID TAKING LEVOTHYROXINE SODIUM 75 MCG TABLET 1 TABLET ORALLY ONCE A DAY TAKING LOSARTAN POTASSIUM 50 MG TABLET 1 TABLET ORALLY ONCE A DAY TAKING VITAMIN D 75454 U TABLET 1 TABLET ORALLY ONCE A WEEK TAKING SEROQUEL 50 MG TABLET 1 TABLET ORALLY ONCE A DAY TAKING BREO ELLIPTA 100-25 MCG/INH AEROSOL POWDER BREATH ACTIVATED 1 PUFF INHALATION ONCE A DAY TAKING ZYRTEC ALLERGY 10 MG TABLET 1 TABLET ORALLY ONCE A DAY TAKING SYMBICORT 160-4.5 MCG/ACT AEROSOL 2 PUFFS INHALATION TWICE A DAY TAKING COLACE 100 MG CAPSULE 1 CAPSULE NEEDED ORALLY BID TAKING TRIAMTERENE-HCTZ 37.5-25 MG TABLET 1 TAB ORALLY DAILY TAKING HYDROXYZINE HCL 50 MG TABLET 1 TAB ORALLY DAILY PRN TAKING ARIPIPRAZOLE 5 MG TABLET 1 TAB ORALLY DAILY TAKING FLUOXETINE 20 MGS 1 CAP ORALLY DAILY TAKING ACETAMINOPHEN 500 MG TABLET 1-2 ORALLY Q8H PRN TAKING TIZANIDINE HCL 4 MG TABLET 1 TABLET NEEDED ORALLY THREE TIMES A DAY TAKING COUMADIN 7.5 MG TABLET 1 TABLET ORALLY ONCE A DAY NOT-TAKING ALEVE 220 MG TABLET 2 ORALLY EVERY 12 HRS NEEDED NOT-TAKING IBUPROFEN 800 MG TABLET 1 TABLET WITH FOOD OR MILK NEEDED ORALLY THREE TIMES A DAY NEEDED MEDICATION LIST REVIEWED AND RECONCILED WITH THE PATIENT PAST MEDICAL HISTORY PTSD HYPOTHYROID CHRONIC 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 DEPRESSION BORDERLINE PERSONALITY DISORDER TACHYCARDIA MENIERES DISEASE DVT 06/2018- LEFT LOWER PE 06/2018 FIBROMYALGIA -RHEUMATOLOGY ALLERGIES PREDNISON: SEVERE ANGER - ALLERGY PENICILLIN (FOR ALLERGIES USE ONLY): PT UNSURE - ALLERGY TRAZODONE HCL: SEVERE ANGER - ALLERGY SURGICAL HISTORY LASIK BOTH EYES CARDIAC CATHETERIZATION 1998 D&C X2 1998,1999 CERVICAL CERCLAGE X3 BTL 2007 COLPOSCOPY WITH LILIAM 11/18/16 & 01/19/18 LEFT KNEE MENISCUIS REPAIR AND FIXED ANOTHER LIGAMENT TOO - HOSPITALIZED FOR DVT AND 2 DAYS LATER PE JUN 2018 FAMILY HISTORY FATHER: ALIVE 65 YRS, MS MOTHER: 54 YRS, CHF, DIAGNOSED WITH HYPERTENSION, HEART DISEASE, PSYCHIATRIC CONDITIONS DAUGHTER: ALIVE 18 YRS 2 SON(S) , 2 DAUGHTER(S) . PT UNAWARE OF CANCER HX IN THE FAMILY. FATHER WAS ADOPTED\\\\\\\\NMOM-CHF,UNDIAGNOSED PSHCH ISSUES\\\\\\\\N2 SONS FROM SMOKE INHALATION\\\\\\\\NDAUGHTER-HEALTHY\\N\\N3 CHILDREN - STILL (GIRL) & 12. SOCIAL HISTORY GENERAL: TOBACCO USE ARE YOU A:NONSMOKER LATEX QUESTIONNAIRE LATEX ALLERGY : HAVE YOU EVER DEVELOPED ANY TYPE OF REACTION AFTER HANDLING LATEX PRODUCTS SUCH RUBBER GLOVES, CONDOMS, DIAPHRAGMS, BALLOONS, SOCKS, OR UNDERWEAR?NO LATEX ALLERGY : HAVE YOU EVER DEVELOPED ANY TYPE OF REACTION DURING OR AFTER DENTAL APPOINTMENT, VAGINAL/RECTAL EXAMINATION, SURGICAL PROCEDURE, OR ANY OTHER EXPOSURE?NO LATEX RISK : HAVE YOU EVER HAD ANY DIFFICULTY BREATHING OR HIVES AFTER EATING OR HANDLING ANY FRUITS, OR VEGETABLES; SUCH KIWI, BANANAS, STONE FRUITS, OR CHESTNUTSNO LATEX RISK : DO YOU HAVE A PREVIOUS PERSONAL HISTORY OF MORE THAN NINE SURGERIES, SPINA BIFIDA, OR REPEATED CATHERTIZATIONS? NO LATEX RISK : ARE YOU FREQUENTLY EXPOSED TO LATEX PRODUCTS IN YOUR OCCUPATION?NO DATE ASKED : 01/01/2019 BMI CARE GOAL FOLLOW-UP ABOVE NORMAL BMI FOLLOW-UPDIETARY NEEDS EDUCATION, GIVING ENCOURAGEMENT TO EXERCISE, WEIGHT MONITORING ALCOHOL SCREENING DID YOU HAVE A DRINK CONTAINING ALCOHOL IN THE PAST YEAR?YES POINTS1 INTERPRETATIONNEGATIVE HOW OFTEN DID YOU HAVE A DRINK CONTAINING ALCOHOL IN THE PAST YEAR?MONTHLY OR LESS (1 POINT) HOW MANY DRINKS DID YOU HAVE ON A TYPICAL DAY WHEN YOU WERE DRINKING IN THE PAST YEAR?1 OR 2 (0 POINTS) HOW OFTEN DID YOU HAVE SIX OR MORE DRINKS ON ONE OCCASION IN THE PAST YEAR?NEVER (0 POINTS) RECREATIONAL DRUG USE DRUG USE?NO CAFFEINE CAFFEINE USE?YES HOW OFTEN AND HOW MUCH? OCCASIONAL COFFEE SEXUAL HX HAD SEX IN THE LAST 12 MONTHS (VAGINAL, ORAL, OR ANAL)?YES WITHMEN ONLY USE PROTECTION?NO PREVENTION STRATEGIES DISCUSSED:CONDOMS HAVE YOU EVER HAD AN STD?YES CHLAMYDIA?YES GC?NO SYPHILIS?NO HERPES?NO OTHER?YES LMP:11/06/17 HIV / HEP-C SCREENING HIV TEST OFFERED TO PATIENT:YES DATE OFFERED:10/17/2016 TEST ACCEPTED:NO REASON:PATIENT DECLINED ORTHODOXY [id number] NONE LANGUAGE ARMENIAN. 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 DIET: REGULAR. EXERCISE: WALKS 1/2 MILE DAILY. MARITAL STATUS: SINGLE. OTHERS AT HOME: CHILD. NEW PATIENT PAIN DIARY TODAY'S VISITNOTES FROM 0-10, WHAT LEVEL IS YOUR PAIN TODAY?8 PAIN CLINIC PFS, CLERGY, PUBLIC HEALTH REFERRALS PFS REFERRAL NEEDED?NO CLERGY REFERRAL NEEDED?NO PUBLIC HEALTH REFERRAL NEEDED?NO WAS THE PROVIDER NOTIFIED OF ANY PERTINENT INFO?YES HAS THE PATIENT BEEN EDUCATED REGARDING HIS/HER PLAN OF CARE?YES HAS THE PATIENT BEEN EDUCATED REGARDING PAIN, THE RISK FOR PAIN, THE IMPORTANCE OF EFFECTIVE PAIN MANAGEMENT, AND THE PAIN ASSESSMENT PROCESS?YES ADVANCE DIRECTIVE ADVANCE DIRECTIVE DISCUSSED WITH PATIENT:YES PT. DOES NOT HAVE ANY ADVANCED DIRECTIVES AND SHE DECLINES INFORMATION AND ASSISTANCE WITH FORM AT THIS TIME 12/02/17 1230 REVIEWED LAS04/14/18 1058 REVIEWED WITH PT. ADREVIEWED WITH PT 05/26/18 BVREVIEWED WITH PT 09/24/18 0952 BV. HOSPITALIZATION/MAJOR DIAGNOSTIC PROCEDURE SURGERY RELATED MENTAL HEALTH 03/2018 S/P KNEE SURGERY- DVT/PULM EMBOLISM 06/2018 REVIEW OF SYSTEMS REVIEWED BY: PROVIDER: JUAN CRYSTAL . CONSTITUTIONAL: ANY CHANGE IN YOUR MEDICAL CONDITION? YES, FIBROMYALGIA, DIAGNOSED BY PAN RECLAIM PROCESSOR . CHILLS NO . FEVER NO . INFECTION: DO YOU HAVE NEW INFECTIONS? NO . DO YOU HAVE HISTORY OF MRSA? NO . MUSCULOSKELETAL: ANY NEW PATTERNS OF PAIN OR NUMBNESS? NO . GASTROENTEROLOGY: ANY NEW CHANGE IN BOWEL CONTROL? NO . GENITOURINARY: ANY NEW CHANGE IN BLADDER CONTROL? NO . IS THERE A CHANCE YOU COULD BE ? NO . HEMATOLOGY/LYMPH: DO YOU TAKE ANY BLOOD THINNERS? (FOR EXAMPLE- COUMADIN, PLAVIX, AGGRENOX, PLATEL, PRADAXA, OR XARELTO) YES, COUMADIN . WHEN WAS YOUR LAST DOSE? DATE: TIME: . NEUROLOGY: HAVE YOU FALLEN IN THE PAST 12 MONTHS? YES, PT STATES THAT SHE FELL WHILE AT HOME, NO INURY FROM FALL, NO REPORT TO ED . ANY NEW EXTREMITY NUMBNESS OR WEAKNESS? NO . CARDIOLOGY: DO YOU HAVE A PACEMAKER OR DEFIBRILLATOR? NO . RESPIRATORY: HAVE YOU BEEN SICK IN THE PAST WEEK? NO . FEVER NO . FLU LIKE SYMPTOMS? NO . COUGH NO . INTEGUMENTARY: DO YOU HAVE ANY RASHES OR OPEN SORES? NO . ALLERGIC/IMMUNO: ARE YOU ALLERGIC TO IV DYE? NO . ANY NEW ALLERGIES? NO . PSYCHIATRIC: DO YOU HAVE THOUGHTS OF HURTING YOURSELF OR SOMEONE ELSE? NO . ARE YOU ABUSED, NEGLECTED, OR IN AN UNSAFE ENVIRONMENT? NO . ENDOCRINOLOGY: ARE YOU DIABETIC? NO . OTHER: DO YOU NEED ANY PRESCRIPTIONS? NO . IF YES, PLEASE LIST: ____ . ANY NEW PROBLEMS WITH YOUR MEDICATIONS? NO . WHEN DID YOU LAST EAT? ____ . WHEN DID YOU LAST DRINK? ____ . WHAT DID YOU LAST DRINK? ____ . NAME OF PERSON DRIVING YOU HOME? ____ . DO YOU HAVE ANY OTHER QUESTIONS OR CONCERNS NO . VITAL SIGNS WT 259.2 LBS, HT 65", BMI 43.13 INDEX, BP 147/95 MM HG, HR 82 /MIN, RR 18 /MIN, TEMP 97.9 F, OXYGEN SAT % 97%, SAFE IN ENV? (Y/N) Y, NA INITIALS [id number], REVIEWED BY: LUIS M. EXAMINATION GENERAL EXAMINATION: GENERAL APPEARANCE: AWAKE,ALERT ,PLEAASANT . PSYCH AFFECT NORMAL . BREASTS: OBVIOUS BREAST HYPERTROPHY. LUNGS: LUNG SHAH ARE CLEAR TO AUSCULTATION BILATERALLY. GOOD MOVEMENT OF AIR . HEART: S1, S2 IN A REGULAR RATE AND RHYTHM. NO SIGNIFICANT MURMURS, RUBS OR GALLOPS NOTED . 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 FIBROMYALGIA - M79.7 TREATMENT BREAST HYPERTROPHY REFERRAL TO:[facility]GERY REASON:CHRONIC NECK PAIN PROTRUSION OF CERVICAL INTERVERTEBRAL DISC CONTINUE ACETAMINOPHEN TABLET, 500 MG, 1-2, ORALLY, Q8H PRN CONTINUE TIZANIDINE HCL TABLET, 4 MG, 1 TABLET NEEDED, ORALLY, THREE TIMES A DAY PROCEDURE CODES FA211 ESTABILISHED PATIENT [facility] CHARGE DISPOSITION & COMMUNICATION FOLLOW UP 3 MONTHS ELECTRONICALLY SIGNED BY BONILLA BRYANT ON 01/18/2019 AT 11:44 AM EDT DISCLAIMER : THIS IS A VISIT SUMMARY EXTRACTED FROM THE [employer] CHART. IT IS NOT A COPY OF THE [employer] PROGRESS NOTE. MTDD
== END ==
LOC: M PAIN 10:45
PROVIDERS: ATTEND Nurse Practitioner Family
DX: M50.20 Other cervical disc displacement, unspecified cervical region (principal); M79.7 Fibromyalgia; N62 Hypertrophy of breast; Z86.59 Personal history of other mental and behavioral disorders; E03.9 Hypothyroidism, unspecified; G43.709 Chronic migraine without aura, not intractable, without status migrainosus; Z86.718 Personal history of other venous thrombosis and embolism; Z88.0 Allergy status to penicillin; Z88.8 Allergy status to other drugs, medicaments and biological substances; E66.01 Morbid (severe) obesity due to excess calories; Z68.41 Body mass index [BMI] 40.0-44.9, adult; Z79.51 Long term (current) use of inhaled steroids; Z79.01 Long term (current) use of anticoagulants; Z79.899 Other long term (current) drug therapy

== ENCOUNTER → 2019-01-07 | Outpatient (REF) | payer OTHER, MEDICAID ==
[2019-01-07 14:05] LABS: INR 4.91
== END ==
LOC: M LAB REF 12:39
PROVIDERS: ATTEND Family Medicine Addiction Medicine
DX: I26.99 Other pulmonary embolism without acute cor pulmonale (principal)

== ENCOUNTER → 2019-01-19 | Outpatient (REF) | payer OTHER, MEDICAID ==
[2019-01-19 14:17] LABS: INR 2.69; PROTHROMBIN TIME 29.2 SECONDS (12.1-14.4)
== END ==
LOC: M LAB REF 12:59
PROVIDERS: ATTEND Family Medicine Addiction Medicine
DX: I26.99 Other pulmonary embolism without acute cor pulmonale (principal)

== ENCOUNTER → 2019-03-12 | Outpatient (REF) | payer OTHER, MEDICAID ==
[~2019-03-12] MED LIST changes: -TRAZ-160 PO; +TRAZ-252 PO
[2019-03-12 10:51] LABS: INR 2.55; PROTHROMBIN TIME 27.3 SECONDS (11.8-14.0)
== END ==
LOC: M LAB REF 09:39
PROVIDERS: ATTEND Nurse Practitioner Family
DX: I26.99 Other pulmonary embolism without acute cor pulmonale (principal)

== ENCOUNTER → 2019-04-02 | Outpatient (CLI) | payer OTHER ==
[~2019-04-02] MED LIST changes: -DULO1CAP; -DULO1CAP3 PO; +DULO1CAP4; +DULO1CAP6 PO
--- NOTE | 2019-04-16 02:30 | ECWPNPC ---
PATIENT NAME: LILIAM JACKSON : 1980 GENDER: FEMALE VISIT DATE: 04/02/2019 DISCHARGE DATE: 04/02/19 1111 VISIT LOCKED DATE TIME: PHYSICIAN: JUAN GRIER RESOURCE: JUAN GRIER REASON FOR APPOINTMENT 1. NECK HISTORY OF PRESENT ILLNESS HISTORY OF PRESENT ILLNESS: HERE FOR F/U OF CHRONIGENERALIZED BODY PAIN.HAS DEVELOPED INTERMITTENT LEFT HAND TREMORS OVER THE PAST [address] LEA IN REGARDS TO BREAST REDUCTION AND SHE IS RECOMMENDING LOOSING 60# AND SHE WOULD HAVE TO BE OFF COUMADIN.PATIENT STATES SHE CANT BE OFF COUMADIN.ON COUMADIN DUE TO HX OF DVT AND PE.RATING PAIN VAS 8/10. PAIN THE PATIENT DESCRIBES THE PAIN... FALL RISK SCREENING: SCREENING :NO FALLS REPORTED IN THE LAST YEAR CURRENT MEDICATIONS TAKING ALBUTEROL SULFATE HFA 108 (90 BASE) MCG/ACT AEROSOL SOLUTION 2 PUFFS NEEDED INHALATION EVERY 4 HRS TAKING CHLORTHALIDONE 12.5 12.5MG TABLET 1 TABLET ORAL ONCE DAILY TAKING LAMOTRIGINE 100 MG TABLET 1 TABLET ORALLY BID TAKING LEVOTHYROXINE SODIUM 75 MCG TABLET 1 TABLET ORALLY ONCE A DAY TAKING LOSARTAN POTASSIUM 50 MG TABLET 1 TABLET ORALLY ONCE A DAY TAKING VITAMIN D 61316 U TABLET 1 TABLET ORALLY ONCE A WEEK TAKING SEROQUEL 50 MG TABLET 1 TABLET ORALLY ONCE A DAY TAKING BREO ELLIPTA 100-25 MCG/INH AEROSOL POWDER BREATH ACTIVATED 1 PUFF INHALATION ONCE A DAY TAKING SYMBICORT 160-4.5 MCG/ACT AEROSOL 2 PUFFS INHALATION TWICE A DAY TAKING ZYRTEC ALLERGY 10 MG TABLET 1 TABLET ORALLY ONCE A DAY TAKING COLACE 100 MG CAPSULE 1 CAPSULE NEEDED ORALLY BID TAKING TRIAMTERENE-HCTZ 37.5-25 MG TABLET 1 TAB ORALLY DAILY TAKING HYDROXYZINE HCL 50 MG TABLET 1 TAB ORALLY DAILY PRN TAKING ARIPIPRAZOLE 5 MG TABLET 1 TAB ORALLY DAILY TAKING FLUOXETINE 20 MGS 1 CAP ORALLY DAILY TAKING COUMADIN 6 MG TABLET 1 TABLET ORALLY ONCE A DAY TAKING ACETAMINOPHEN 500 MG TABLET 1-2 ORALLY Q8H PRN TAKING TIZANIDINE HCL 4 MG TABLET 1 TABLET NEEDED ORALLY THREE TIMES A DAY NOT-TAKING ALEVE 220 MG TABLET 2 ORALLY EVERY 12 HRS NEEDED NOT-TAKING IBUPROFEN 800 MG TABLET 1 TABLET WITH FOOD OR MILK NEEDED ORALLY THREE TIMES A DAY NEEDED MEDICATION LIST REVIEWED AND RECONCILED WITH THE PATIENT PAST MEDICAL HISTORY PTSD HYPOTHYROID CHRONIC 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 DEPRESSION BORDERLINE PERSONALITY DISORDER TACHYCARDIA MENIERES DISEASE DVT 06/2018- LEFT LOWER PE 06/2018 FIBROMYALGIA -RHEUMATOLOGY TREMOR ALLERGIES PREDNISON: SEVERE ANGER - ALLERGY PENICILLIN (FOR ALLERGIES USE ONLY): PT UNSURE - ALLERGY TRAZODONE HCL: SEVERE ANGER - ALLERGY SURGICAL HISTORY LASIK BOTH EYES CARDIAC CATHETERIZATION 1997 D&C X2 1998,1999 CERVICAL CERCLAGE X3 BTL 2007 COLPOSCOPY WITH LILIAM 11/18/16 & 01/19/18 LEFT KNEE MENISCUIS REPAIR AND FIXED ANOTHER LIGAMENT TOO - HOSPITALIZED FOR DVT AND 2 DAYS LATER PE JUN 2018 FAMILY HISTORY FATHER: 65 YRS, MS MOTHER: 54 YRS, CHF, DIAGNOSED WITH HYPERTENSION, HEART DISEASE, PSYCHIATRIC CONDITIONS DAUGHTER: ALIVE 18 YRS 2 SON(S) , 2 DAUGHTER(S) . PT UNAWARE OF CANCER HX IN THE FAMILY. FATHER WAS ADOPTED\\\\\\\\NMOM-CHF,UNDIAGNOSED PSHCH ISSUES\\\\\\\\N2 SONS FROM SMOKE INHALATION\\\\\\\\NDAUGHTER-HEALTHY\\N\\N3 CHILDREN - STILL (GIRL) 10 & 12 DAD FROM BRAIN HEMORRHAGE. SOCIAL HISTORY GENERAL: TOBACCO USE ARE YOU A:NONSMOKER HIV / HEP-C SCREENING HIV TEST OFFERED TO PATIENT:YES DATE OFFERED:10/17/2016 TEST ACCEPTED:NO REASON:PATIENT DECLINED OTHERS AT HOME: CHILD. DIET: REGULAR. LANGUAGE ROMANSH. DOMESTIC VIOLENCE DO YOU FEEL SAFE IN YOUR ENVIRONMENT?YES NEW PATIENT PAIN DIARY TODAY'S VISITNOTES FROM 0-10, WHAT LEVEL IS YOUR PAIN TODAY?8 BMI CARE GOAL FOLLOW-UP ABOVE NORMAL BMI FOLLOW-UPDIETARY NEEDS EDUCATION, GIVING ENCOURAGEMENT TO EXERCISE, WEIGHT MONITORING RECREATIONAL DRUG USE DRUG USE?NO EXERCISE: WALKS 1/2 MILE DAILY. LEARNING BARRIERS / SPECIAL NEEDS CHANGE FROM LAST VISIT?NO BARRIERS TO LEARNING?NO HEARING IMPAIRED?NO VISION IMPAIRED?YES :CORRECTIVE LENSES COGNITIVELY IMPAIRED?NO READINESS TO LEARN?YES LEARNING PREFERENCES?NO LEARNING CAPABILITIES PRESENT?YES EMOTIONAL BARRIERS?NO SPECIAL DEVICES?NO SECURITY PROFESSIONAL NEEDED?NO PAIN CLINIC PFS, CLERGY, PUBLIC HEALTH REFERRALS PFS REFERRAL NEEDED?NO CLERGY REFERRAL NEEDED?NO PUBLIC HEALTH REFERRAL NEEDED?NO WAS THE PROVIDER NOTIFIED OF ANY PERTINENT INFO?YES HAS THE PATIENT BEEN EDUCATED REGARDING HIS/HER PLAN OF CARE?YES HAS THE PATIENT BEEN EDUCATED REGARDING PAIN, THE RISK FOR PAIN, THE IMPORTANCE OF EFFECTIVE PAIN MANAGEMENT, AND THE PAIN ASSESSMENT PROCESS?YES LATEX QUESTIONNAIRE LATEX ALLERGY : HAVE YOU EVER DEVELOPED ANY TYPE OF REACTION AFTER HANDLING LATEX PRODUCTS SUCH RUBBER GLOVES, CONDOMS, DIAPHRAGMS, BALLOONS, SOCKS, OR UNDERWEAR?NO LATEX ALLERGY : HAVE YOU EVER DEVELOPED ANY TYPE OF REACTION DURING OR AFTER DENTAL APPOINTMENT, VAGINAL/RECTAL EXAMINATION, SURGICAL PROCEDURE, OR ANY OTHER EXPOSURE?NO LATEX RISK : HAVE YOU EVER HAD ANY DIFFICULTY BREATHING OR HIVES AFTER EATING OR HANDLING ANY FRUITS, OR VEGETABLES; SUCH KIWI, BANANAS, STONE FRUITS, OR CHESTNUTSNO LATEX RISK : DO YOU HAVE A PREVIOUS PERSONAL HISTORY OF MORE THAN NINE SURGERIES, SPINA BIFIDA, OR REPEATED CATHERIZATIONS? NO LATEX RISK : ARE YOU FREQUENTLY EXPOSED TO LATEX PRODUCTS IN YOUR OCCUPATION?NO DATE ASKED : 01/01/2019 CAFFEINE CAFFEINE USE?YES HOW OFTEN AND HOW MUCH? OCCASIONAL COFFEE ADVANCE DIRECTIVE ADVANCE DIRECTIVE DISCUSSED WITH PATIENT:YES PT. DOES NOT HAVE ANY ADVANCED DIRECTIVES GIVEN INFORMATION, DECLINES ASSISTANCE WITH FORM AT THIS TIME JEHOVAH'S WITNESS [id number] NONE MARITAL STATUS: SINGLE. 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 SEXUAL HX HAD SEX IN THE LAST 12 MONTHS (VAGINAL, ORAL, OR ANAL)?YES WITHMEN ONLY USE PROTECTION?NO PREVENTION STRATEGIES DISCUSSED:CONDOMS HAVE YOU EVER HAD AN STD?YES CHLAMYDIA?YES GC?NO SYPHILIS?NO HERPES?NO OTHER?YES LMP:11/06/17 12/02/17 1230 REVIEWED LAS04/14/18 1058 REVIEWED WITH PT. ADREVIEWED WITH PT 05/26/18 BVREVIEWED WITH PT 09/24/18 0952 BV04/02/19 0955 REVIEWED LAS. HOSPITALIZATION/MAJOR DIAGNOSTIC PROCEDURE SURGERY RELATED MENTAL HEALTH 03/2018 S/P KNEE SURGERY- DVT/PULM EMBOLISM 06/2018 REVIEW OF SYSTEMS REVIEWED BY: PROVIDER: JUAN CRYSTAL . CONSTITUTIONAL: ANY CHANGE IN YOUR MEDICAL CONDITION? YES PT REPORTS SHE HAS DEVELOPED A TREMOR IN HER LEFT HAND OVER THE PAST 2-3 WEEKS. HAS SPOKEN WITH HER PRIMARY ABOUT IT. . CHILLS NO . FEVER NO . INFECTION: DO YOU HAVE NEW INFECTIONS? NO . DO YOU HAVE HISTORY OF MRSA? NO . MUSCULOSKELETAL: ANY NEW PATTERNS OF PAIN OR NUMBNESS? YES PT REPORTS INCREASED PAIN/NUMBNESS ALONG WITH THE NEW TREMOR IN HER LEFT ARM/SHOULDER OVER THE PAST SEVERAL WEEKS. . GASTROENTEROLOGY: ANY NEW CHANGE IN BOWEL CONTROL? NO . GENITOURINARY: ANY NEW CHANGE IN BLADDER CONTROL? NO . IS THERE A CHANCE YOU COULD BE ? NO . HEMATOLOGY/LYMPH: DO YOU TAKE ANY BLOOD THINNERS? (FOR EXAMPLE- COUMADIN, PLAVIX, AGGRENOX, PLATEL, PRADAXA, OR XARELTO) NO . WHEN WAS YOUR LAST DOSE? DATE: TIME: . NEUROLOGY: HAVE YOU FALLEN IN THE PAST 12 MONTHS? PT REPORTS SHE TRIPPED AND FELL A WEEK AGO, NO ED OR MD VISIT, DENIES INJURY. . ANY NEW EXTREMITY NUMBNESS OR WEAKNESS? NO . CARDIOLOGY: DO YOU HAVE A PACEMAKER OR DEFIBRILLATOR? NO . RESPIRATORY: HAVE YOU BEEN SICK IN THE PAST WEEK? NO . FEVER NO . FLU LIKE SYMPTOMS? NO . COUGH NO . INTEGUMENTARY: DO YOU HAVE ANY RASHES OR OPEN SORES? NO . ALLERGIC/IMMUNO: ARE YOU ALLERGIC TO IV DYE? NO . ANY NEW ALLERGIES? NO . PSYCHIATRIC: DO YOU HAVE THOUGHTS OF HURTING YOURSELF OR SOMEONE ELSE? NO . ARE YOU ABUSED, NEGLECTED, OR IN AN UNSAFE ENVIRONMENT? NO . ENDOCRINOLOGY: ARE YOU DIABETIC? NO . OTHER: DO YOU NEED ANY PRESCRIPTIONS? NO . IF YES, PLEASE LIST: ____ . ANY NEW PROBLEMS WITH YOUR MEDICATIONS? NO . WHEN DID YOU LAST EAT? ____ . WHEN DID YOU LAST DRINK? ____ . WHAT DID YOU LAST DRINK? ____ . NAME OF PERSON DRIVING YOU HOME? ____ . DO YOU HAVE ANY OTHER QUESTIONS OR CONCERNS NO . VITAL SIGNS WT 264.4 LBS, HT 65", BMI 43.99 INDEX, BP 143/93 MM HG, HR 70 /MIN, RR 18 /MIN, TEMP 97.0 F, OXYGEN SAT % 96%, SAFE IN ENV? (Y/N) YES, NA INITIALS AW 0946, REVIEWED BY: SADIE. EXAMINATION GENERAL EXAMINATION: GENERAL AWAKE,ALERT ,PLEAASANT . PSYCH AFFECT NORMAL . BREASTS: OBVIOUS BREAST HYPERTROPHY. LUNGS: LUNG SHAH ARE CLEAR TO AUSCULTATION BILATERALLY. GOOD MOVEMENT OF AIR . HEART: S1, S2 IN A REGULAR RATE AND RHYTHM. NO SIGNIFICANT MURMURS, RUBS OR GALLOPS NOTED . MUSCULOSKELETAL: MUSCLE STRENGTH TESTING 5/5 BILATERAL UPPER EXTREMITIES. NEUROLOGIC EXAM: COMPLAINTS OF LEFT ARM PAIN WITH LIGHT TOUCH LEFT ARM SEEMS TO BE SLIGHTLY BLUE IN COLOR COMPARED TO RIGHT RAPID CAPILLARY REFILL BILAT. HANDS ROJM FULL BILAT. ARMS. 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 [facility] REASON:LEFT HAND TREMOR,CERVICAL DISC DISPLACEMENT W RADICULOPATHY PROCEDURE CODES FA211 ESTABILISHED PATIENT [facility] CHARGE DISPOSITION & COMMUNICATION FOLLOW UP 6 WEEKS ELECTRONICALLY SIGNED BY BONILLA BRYANT ON 04/15/2019 AT 11:09 AM EDT DISCLAIMER : THIS IS A VISIT SUMMARY EXTRACTED FROM THE [employer] CHART. IT IS NOT A COPY OF THE [facility] PROGRESS NOTE. OLIVIA
== END ==
LOC: M PAIN 10:30
PROVIDERS: ATTEND Nurse Practitioner Family
DX: R25.1 Tremor, unspecified (principal); M50.20 Other cervical disc displacement, unspecified cervical region; F43.10 Post-traumatic stress disorder, unspecified; E03.9 Hypothyroidism, unspecified; G43.709 Chronic migraine without aura, not intractable, without status migrainosus; H81.09 Meniere's disease, unspecified ear; R00.0 Tachycardia, unspecified; F32.9 Major depressive disorder, single episode, unspecified; F60.3 Borderline personality disorder; M79.7 Fibromyalgia; Z86.711 Personal history of pulmonary embolism; Z86.718 Personal history of other venous thrombosis and embolism; Z79.01 Long term (current) use of anticoagulants; Z79.899 Other long term (current) drug therapy; Z88.0 Allergy status to penicillin; Z88.8 Allergy status to other drugs, medicaments and biological substances

== ENCOUNTER → 2019-04-14 | Outpatient (REF) | payer OTHER ==
[2019-04-14 12:17] LABS: INR 2.98; PROTHROMBIN TIME 30.9 SECONDS (11.8-14.0)
== END ==
LOC: M LAB REF 11:06
PROVIDERS: ATTEND Family Medicine Addiction Medicine
DX: I26.99 Other pulmonary embolism without acute cor pulmonale (principal)

== ENCOUNTER → 2019-04-15 | Outpatient (REF) | payer OTHER ==
[2019-04-15 18:20] LABS: AMORPHOUS SEDIMENT SMALL (NEGATIVE); APPEARANCE, URINE CLOUDY (CLEAR); BACTERIA, URINE AUTO 2+ (NEGATIVE); BILIRUBIN, URINE AUTO NEGATIVE (NEGATIVE); BLOOD, URINE BLOOD 3+ (NEGATIVE); COLOR, URINE RED (YELLOW); GLUCOSE, URINE (UA) AUTO NEGATIVE (NEGATIVE); KETONE, URINE AUTO NEGATIVE (NEGATIVE); LEUKOCYTE ESTERASE, URINE AUTO 2+ (NEGATIVE); MUCUS, URINE SMALL (NEGATIVE); NITRITE, URINE AUTO NEGATIVE (NEGATIVE); PROTEIN, URINE AUTO 2+ mg/dL (NEGATIVE); RBC, URINE AUTO TNTC /HPF (0-3); SPECIFIC GRAVITY URINE AUTO 1.012 (1.002-1.035); SQUAMOUS EPITHELIAL CELL UR AU 30 /HPF (0-6); TRANSITIONAL EPITHELIAL AUTO 2 /HPF; UROBILINOGEN, URINE AUTO 0.2 mg/dL (0.0-2.0); WBC, URINE AUTO TNTC /HPF (0-3)
== END ==
LOC: M LAB REF 16:53
PROVIDERS: ATTEND Nurse Practitioner Family
DX: R30.0 Dysuria (principal)

== ENCOUNTER → 2019-05-18 | Outpatient (CLI) | payer OTHER ==
[~2019-05-18] MED LIST changes: +HYDR1TAB33 PO; -HYDRO50TAB PO
--- NOTE | 2019-05-20 02:11 | ECWPNPC ---
PATIENT NAME: LILIAM JACKSON : 1980 GENDER: FEMALE VISIT DATE: 05/18/2019 DISCHARGE DATE: 05/18/19 1203 VISIT LOCKED DATE TIME: PHYSICIAN: CARY HARO RESOURCE: CARY AHRO REASON FOR APPOINTMENT 1. NECK HISTORY OF PRESENT ILLNESS HISTORY OF PRESENT ILLNESS: PAIN THE PATIENT DESCRIBES THE PAIN... 39 YEAR OLD FEMALE IN FOR CHRONIC PAIN FOLLOW UP. SHE FEELS THE TIZANIDINE IS HELPFUL BUT DOES ADMIT THAT IT MAKES HER TIRED. SHE RATES HER PAIN AT A 8/10 CURRENTLY AND DESCRIBES IT ACHING, SHARP, BURNING, STABBING, SORE, SHOOTING, AND TENDER. SHE DOES ADMIT TO SEEING ORTHO WHO STATED SHE NEEDS A REFERRAL TO NEURO REGARDING HER TREMOR. FALL RISK SCREENING: SCREENING :NO FALLS REPORTED IN THE LAST YEAR CURRENT MEDICATIONS TAKING ALBUTEROL SULFATE HFA 108 (90 BASE) MCG/ACT AEROSOL SOLUTION 2 PUFFS NEEDED INHALATION EVERY 4 HRS TAKING CHLORTHALIDONE 12.5 12.5MG TABLET 1 TABLET ORAL ONCE DAILY TAKING LAMOTRIGINE 100 MG TABLET 1 TABLET ORALLY BID TAKING LEVOTHYROXINE SODIUM 75 MCG TABLET 1 TABLET ORALLY ONCE A DAY TAKING LOSARTAN POTASSIUM 50 MG TABLET 1 TABLET ORALLY ONCE A DAY TAKING VITAMIN D 05179 U TABLET 1 TABLET ORALLY ONCE A WEEK TAKING SEROQUEL 50 MG TABLET 1 TABLET ORALLY ONCE A DAY TAKING BREO ELLIPTA 100-25 MCG/INH AEROSOL POWDER BREATH ACTIVATED 1 PUFF INHALATION ONCE A DAY TAKING SYMBICORT 160-4.5 MCG/ACT AEROSOL 2 PUFFS INHALATION TWICE A DAY TAKING ZYRTEC ALLERGY 10 MG TABLET 1 TABLET ORALLY ONCE A DAY TAKING COLACE 100 MG CAPSULE 1 CAPSULE NEEDED ORALLY BID TAKING TRIAMTERENE-HCTZ 37.5-25 MG TABLET 1 TAB ORALLY DAILY TAKING HYDROXYZINE HCL 50 MG TABLET 1 TAB ORALLY DAILY PRN TAKING ARIPIPRAZOLE 5 MG TABLET 1 TAB ORALLY DAILY TAKING FLUOXETINE 20 MGS 1 CAP ORALLY DAILY TAKING COUMADIN 6 MG TABLET 1 TABLET ORALLY ONCE A DAY TAKING ACETAMINOPHEN 500 MG TABLET 1-2 ORALLY Q8H PRN TAKING TIZANIDINE HCL 4 MG TABLET 1 TABLET NEEDED ORALLY THREE TIMES A DAY NOT-TAKING ALEVE 220 MG TABLET 2 ORALLY EVERY 12 HRS NEEDED NOT-TAKING IBUPROFEN 800 MG TABLET 1 TABLET WITH FOOD OR MILK NEEDED ORALLY THREE TIMES A DAY NEEDED MEDICATION LIST REVIEWED AND RECONCILED WITH THE PATIENT PAST MEDICAL HISTORY PTSD HYPOTHYROID CHRONIC 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 DEPRESSION BORDERLINE PERSONALITY DISORDER TACHYCARDIA MENIERES DISEASE DVT 06/2018- LEFT LOWER PE 06/2018 FIBROMYALGIA -RHEUMATOLOGY TREMOR ALLERGIES PREDNISON: SEVERE ANGER - ALLERGY PENICILLIN (FOR ALLERGIES USE ONLY): PT UNSURE - ALLERGY TRAZODONE HCL: SEVERE ANGER - ALLERGY SURGICAL HISTORY LASIK BOTH EYES CARDIAC CATHETERIZATION 1998 D&C X2 1998,1999 CERVICAL CERCLAGE X3 BTL 2007 COLPOSCOPY WITH LILIAM 11/18/16 & 01/19/18 LEFT KNEE MENISCUIS REPAIR AND FIXED ANOTHER LIGAMENT TOO - HOSPITALIZED FOR DVT AND 2 DAYS LATER PE JUN 2018 FAMILY HISTORY FATHER: 65 YRS, MS MOTHER: 54 YRS, CHF, DIAGNOSED WITH HYPERTENSION, HEART DISEASE, PSYCHIATRIC CONDITIONS DAUGHTER: ALIVE 18 YRS 2 SON(S) , 2 DAUGHTER(S) . PT UNAWARE OF CANCER HX IN THE FAMILY. FATHER WAS ADOPTED\\\\\\\\NMOM-CHF,UNDIAGNOSED PSHCH ISSUES\\\\\\\\N2 SONS FROM SMOKE INHALATION\\\\\\\\NDAUGHTER-HEALTHY\\N\\N3 CHILDREN - STILL (GIRL) 10 & 12 DAD FROM BRAIN HEMORRHAGE. SOCIAL HISTORY GENERAL: TOBACCO USE ARE YOU A:NONSMOKER HIV / HEP-C SCREENING HIV TEST OFFERED TO PATIENT:YES DATE OFFERED:10/17/2016 TEST ACCEPTED:NO REASON:PATIENT DECLINED OTHERS AT HOME: CHILD. DIET: REGULAR. LANGUAGE PERSIAN. DOMESTIC VIOLENCE DO YOU FEEL SAFE IN YOUR ENVIRONMENT?YES NEW PATIENT PAIN DIARY TODAY'S VISITNOTES FROM 0-10, WHAT LEVEL IS YOUR PAIN TODAY?8 BMI CARE GOAL FOLLOW-UP ABOVE NORMAL BMI FOLLOW-UPDIETARY NEEDS EDUCATION, GIVING ENCOURAGEMENT TO EXERCISE, WEIGHT MONITORING RECREATIONAL DRUG USE DRUG USE?NO EXERCISE: WALKS 1/2 MILE DAILY. LEARNING BARRIERS / SPECIAL NEEDS CHANGE FROM LAST VISIT?NO BARRIERS TO LEARNING?NO HEARING IMPAIRED?NO VISION IMPAIRED?YES :CORRECTIVE LENSES COGNITIVELY IMPAIRED?NO READINESS TO LEARN?YES LEARNING PREFERENCES?NO LEARNING CAPABILITIES PRESENT?YES EMOTIONAL BARRIERS?NO SPECIAL DEVICES?NO MOSAIC TILE MAKER NEEDED?NO PAIN CLINIC PFS, CLERGY, PUBLIC HEALTH REFERRALS PFS REFERRAL NEEDED?NO CLERGY REFERRAL NEEDED?NO PUBLIC HEALTH REFERRAL NEEDED?NO WAS THE PROVIDER NOTIFIED OF ANY PERTINENT INFO?YES HAS THE PATIENT BEEN EDUCATED REGARDING HIS/HER PLAN OF CARE?YES HAS THE PATIENT BEEN EDUCATED REGARDING PAIN, THE RISK FOR PAIN, THE IMPORTANCE OF EFFECTIVE PAIN MANAGEMENT, AND THE PAIN ASSESSMENT PROCESS?YES LATEX QUESTIONNAIRE LATEX ALLERGY : HAVE YOU EVER DEVELOPED ANY TYPE OF REACTION AFTER HANDLING LATEX PRODUCTS SUCH RUBBER GLOVES, CONDOMS, DIAPHRAGMS, BALLOONS, SOCKS, OR UNDERWEAR?NO LATEX ALLERGY : HAVE YOU EVER DEVELOPED ANY TYPE OF REACTION DURING OR AFTER DENTAL APPOINTMENT, VAGINAL/RECTAL EXAMINATION, SURGICAL PROCEDURE, OR ANY OTHER EXPOSURE?NO LATEX RISK : HAVE YOU EVER HAD ANY DIFFICULTY BREATHING OR HIVES AFTER EATING OR HANDLING ANY FRUITS, OR VEGETABLES; SUCH KIWI, BANANAS, STONE FRUITS, OR CHESTNUTSNO LATEX RISK : DO YOU HAVE A PREVIOUS PERSONAL HISTORY OF MORE THAN NINE SURGERIES, SPINA BIFIDA, OR REPEATED CATHERIZATIONS? NO LATEX RISK : ARE YOU FREQUENTLY EXPOSED TO LATEX PRODUCTS IN YOUR OCCUPATION?NO DATE ASKED : 01/01/2019 CAFFEINE CAFFEINE USE?YES HOW OFTEN AND HOW MUCH? OCCASIONAL COFFEE ADVANCE DIRECTIVE ADVANCE DIRECTIVE DISCUSSED WITH PATIENT:YES PT. DOES NOT HAVE ANY ADVANCED DIRECTIVES GIVEN INFORMATION, DECLINES ASSISTANCE WITH FORM AT THIS TIME 05-18-2019 PATIETN GIVEN HCP INOFORMATION 1137 NLJ MOSQUE [id number] NONE MARITAL STATUS: SINGLE. 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 SEXUAL HX HAD SEX IN THE LAST 12 MONTHS (VAGINAL, ORAL, OR ANAL)?YES WITHMEN ONLY USE PROTECTION?NO PREVENTION STRATEGIES DISCUSSED:CONDOMS HAVE YOU EVER HAD AN STD?YES CHLAMYDIA?YES GC?NO SYPHILIS?NO HERPES?NO OTHER?YES LMP:11/06/17 12/02/17 1230 REVIEWED LAS04/14/18 1058 REVIEWED WITH PT. ADREVIEWED WITH PT 05/26/18 BVREVIEWED WITH PT 09/24/18 0952 BV04/02/19 0955 REVIEWED LASREVIEWED WITH PATIENT 05/18/19 1137 NLJ. HOSPITALIZATION/MAJOR DIAGNOSTIC PROCEDURE SURGERY RELATED MENTAL HEALTH 03/2018 S/P KNEE SURGERY- DVT/PULM EMBOLISM 06/2018 REVIEW OF SYSTEMS REVIEWED BY: PROVIDER: SYLVIE CRYSTAL-Tigre . CONSTITUTIONAL: ANY CHANGE IN YOUR MEDICAL CONDITION? NO . CHILLS NO . FEVER NO . INFECTION: DO YOU HAVE NEW INFECTIONS? NO . DO YOU HAVE HISTORY OF MRSA? NO . MUSCULOSKELETAL: ANY NEW PATTERNS OF PAIN OR NUMBNESS? YES- STATES INCREASED PAIN IN NECK AND STATES SHE HAS 2 FINGERS IN RIGHT HAND THAT ARE NUMB, ALSO HAS TRMOR IN LEFT HAND . GASTROENTEROLOGY: ANY NEW CHANGE IN BOWEL CONTROL? NO . GENITOURINARY: ANY NEW CHANGE IN BLADDER CONTROL? NO . IS THERE A CHANCE YOU COULD BE ? NO . HEMATOLOGY/LYMPH: DO YOU TAKE ANY BLOOD THINNERS? (FOR EXAMPLE- COUMADIN, PLAVIX, AGGRENOX, PLATEL, PRADAXA, OR XARELTO) YES- COUMADIN 6 MG DAILY . WHEN WAS YOUR LAST DOSE? DATE: 05/17/19TIME: 2240 PM . NEUROLOGY: HAVE YOU FALLEN IN THE PAST 12 MONTHS? YES- STATES SHE FELL ABOUT 2 MONTHS AGO, NO INJURY, NO MEDICAL CARE RECEIVED . ANY NEW EXTREMITY NUMBNESS OR WEAKNESS? NO . CARDIOLOGY: DO YOU HAVE A PACEMAKER OR DEFIBRILLATOR? NO . RESPIRATORY: HAVE YOU BEEN SICK IN THE PAST WEEK? NO . FEVER NO . FLU LIKE SYMPTOMS? NO . COUGH NO . INTEGUMENTARY: DO YOU HAVE ANY RASHES OR OPEN SORES? NO . ALLERGIC/IMMUNO: ARE YOU ALLERGIC TO IV DYE? NO . ANY NEW ALLERGIES? NO . PSYCHIATRIC: DO YOU HAVE THOUGHTS OF HURTING YOURSELF OR SOMEONE ELSE? NO . ARE YOU ABUSED, NEGLECTED, OR IN AN UNSAFE ENVIRONMENT? NO . ENDOCRINOLOGY: ARE YOU DIABETIC? NO . OTHER: DO YOU NEED ANY PRESCRIPTIONS? NO . IF YES, PLEASE LIST: ____ . ANY NEW PROBLEMS WITH YOUR MEDICATIONS? NO . WHEN DID YOU LAST EAT? ____ . WHEN DID YOU LAST DRINK? ____ . WHAT DID YOU LAST DRINK? ____ . NAME OF PERSON DRIVING YOU HOME? ____ . DO YOU HAVE ANY OTHER QUESTIONS OR CONCERNS YES- INCREASED PAIN IN NECK AND TREMOR IN LEFT HAND . VITAL SIGNS WT 261.0 LBS, HT 65", BMI 43.43 INDEX, BP 174/94 MM HG, HR 82 /MIN, RR 18 /MIN, TEMP 97.1 F, OXYGEN SAT % 97 %, SAFE IN ENV? (Y/N) YES, REVIEWED BY: [id number] PATIENT STATES SHE HAS A HEADACHE TODAY AND THAT INCREASES HER BP. EXAMINATION GENERAL EXAMINATION: GENERALNO ACUTE DISTRESS, WELL NOURISHED AND HYDRATED. PSYCHAPPROPRIATE MOOD AND AFFECT . LUNGS:CLEAR TO AUSCULTATION BILATERALLY, NO WHEEZES, RHONCHI, RALES. HEART:NO MURMURS, REGULAR RATE AND RHYTHM. ASSESSMENTS TREMOR - R25.1 (PRIMARY) TREATMENT TREMOR CLINICAL NOTES: 39 YEAR OLD FEMALE IN FOR CHRONIC PAIN FOLLOW UP. GIVEN PRESENTING SYMPTOMS AND RESULTS OF PHYSICAL EXAMINATION RECOMMENDED REFERRAL TO [facility] WITH FOLLOW UP AFTER CONSULT. PATIENT HAS EXPRESSED UNDERSTANDING OF AND WAS IN AGREEMENT WITH TREATMENT PLAN. GIVEN TIME TO ASK QUESTIONS AND EXPRESS CONCERNS. PROCEDURE CODES FA211 ESTABILISHED PATIENT [facility] F[facility] CHARGE DISPOSITION & COMMUNICATION FOLLOW UP REASON: AFTER NEURO CONSULT ELECTRONICALLY SIGNED BY BONILLA MITTAL ON 05/19/2019 AT 12:28 PM EDT DISCLAIMER : THIS IS A VISIT SUMMARY EXTRACTED FROM THE [employer] CHART. IT IS NOT A COPY OF THE [employer] PROGRESS NOTE. OLIVIA
== END ==
LOC: M PAIN 11:30
PROVIDERS: ATTEND Family Medicine
DX: R25.1 Tremor, unspecified (principal); G89.29 Other chronic pain; Z86.59 Personal history of other mental and behavioral disorders; E03.9 Hypothyroidism, unspecified; G43.909 Migraine, unspecified, not intractable, without status migrainosus; M79.7 Fibromyalgia; Z88.0 Allergy status to penicillin; Z88.8 Allergy status to other drugs, medicaments and biological substances; Z86.718 Personal history of other venous thrombosis and embolism; Z79.01 Long term (current) use of anticoagulants; E66.01 Morbid (severe) obesity due to excess calories; Z68.41 Body mass index [BMI] 40.0-44.9, adult; Z79.51 Long term (current) use of inhaled steroids; Z79.899 Other long term (current) drug therapy

== ENCOUNTER → 2019-05-20 | Outpatient (REF) | payer OTHER ==
[2019-05-20 12:37] LABS: INR 3.19; PROTHROMBIN TIME 32.6 SECONDS (11.8-14.0)
== END ==
LOC: M LAB REF 11:42
PROVIDERS: ATTEND Physician Assistant
DX: I26.99 Other pulmonary embolism without acute cor pulmonale (principal)

== ENCOUNTER → 2019-06-08 | Outpatient (REF) | payer OTHER ==
[2019-06-11 00:07] LABS: HPV HYBRID CAPTURE II Positive (Negative)
== END ==
LOC: M SFHCWAGY 15:31
PROVIDERS: ATTEND Nurse Practitioner Women's Health
DX: Z12.4 Encounter for screening for malignant neoplasm of cervix (principal); R87.610 Atypical squamous cells of undetermined significance on cytologic smear of cervix (ASC-US)

== ENCOUNTER → 2019-06-08 | Outpatient (REF) | payer OTHER ==
[2019-06-08 14:52] LABS: CHOLESTEROL RISK RATIO 6.358 (<5)
[2019-06-08 15:37] LABS: HEMOGLOBIN A1c 5.2 %
== END ==
LOC: M LABDRAW1 13:32
PROVIDERS: ATTEND Nurse Practitioner Psychiatric/Mental Health
DX: Z79.899 Other long term (current) drug therapy (principal)

== ENCOUNTER → 2019-06-11 | Outpatient (REF) | payer OTHER ==
[2019-06-11 16:01] LABS: INR 3.12; PROTHROMBIN TIME 32.1 SECONDS (11.8-14.0)
[2019-06-11 20:12] LABS: FREE T4 1.13 NG/DL (0.76-1.46); THYROID STIMULATING HORMONE 2.52 uIU/ML (0.358-3.740)
== END ==
LOC: M LAB REF 15:24
PROVIDERS: ATTEND Nurse Practitioner Family
DX: I26.99 Other pulmonary embolism without acute cor pulmonale (principal); E03.9 Hypothyroidism, unspecified; E55.9 Vitamin D deficiency, unspecified

== ENCOUNTER → 2019-06-21 | Outpatient (REF) | payer OTHER ==
[~2019-06-21] MED LIST changes: -MECL-68 PO; +MECL1TAB31 PO; +ZONI25CA13 PO; -ZONI25CA2 PO
[2019-06-21 13:50] LABS: INR 3.13; PROTHROMBIN TIME 32.1 SECONDS (11.8-14.0)
[2019-06-21 19:19] LABS: FREE T4 1.17 NG/DL (0.76-1.46); THYROID STIMULATING HORMONE 3.62 uIU/ML (0.358-3.740); TOTAL 25(OH) VITAMIN D 26.4 NG/ML (30.0-100.0)
== END ==
LOC: M LAB REF 11:50
PROVIDERS: ATTEND Nurse Practitioner Family
DX: I26.99 Other pulmonary embolism without acute cor pulmonale (principal); E03.9 Hypothyroidism, unspecified

== ENCOUNTER → 2019-06-24 | Outpatient (REF) | payer OTHER ==
[~2019-06-24] MED LIST changes: +MECL-68 PO; -MECL1TAB31 PO; -ZONI25CA13 PO; +ZONI25CA2 PO
[2019-06-24 10:03] LABS: INR 2.48; PROTHROMBIN TIME 26.6 SECONDS (11.8-14.0)
== END ==
LOC: M LAB REF 08:58
PROVIDERS: ATTEND Nurse Practitioner Family
DX: I26.99 Other pulmonary embolism without acute cor pulmonale (principal)

== ENCOUNTER → 2019-06-28 | Outpatient (REF) | payer OTHER | LOC: M SFHCWAGY 15:15 | PROVIDERS: ATTEND Nurse Practitioner Women's Health | DX: N87.0 Mild cervical dysplasia (principal) ==

== ENCOUNTER → 2019-07-09 | Outpatient (REF) | payer OTHER ==
[2019-07-09 16:30] LABS: INR 2.13; PROTHROMBIN TIME 23.6 SECONDS (11.8-14.0)
== END ==
LOC: M LAB REF 16:05
PROVIDERS: ATTEND Nurse Practitioner Family
DX: I26.99 Other pulmonary embolism without acute cor pulmonale (principal)

== ENCOUNTER → 2020-04-04 | Outpatient (CLI) | payer MEDICARE, OTHER ==
[~2020-04-04] MED LIST changes: -FLUO20CA19 PO; +FLUO20CA22 PO; -MECL-68 PO; +MECL1TAB31 PO; +ZONI25CA13 PO; -ZONI25CA2 PO
--- NOTE | 2020-04-06 01:40 | ECWPNPC ---
PATIENT NAME: LILIAM JACKSON : 1980 GENDER: FEMALE VISIT DATE: 04/04/2020 DISCHARGE DATE: 04/04/20 0959 VISIT LOCKED DATE TIME: PHYSICIAN: CARY HARO RESOURCE: CARY HARO REASON FOR APPOINTMENT 1. 30 MINS. NEW BODY PART -NECK BACK HISTORY OF PRESENT ILLNESS GENERAL: - 40-YEAR-OLD FEMALE IN FOR CHRONIC PAIN FOLLOW-UP. SHE RATES HER PAIN CURRENTLY AT AN 8 OUT OF 10 AND DESCRIBES IT ACHING, BURNING, CONTINUOUS, SHARP, STABBING, TENDER, THROBBING, SORE, AND SHOOTING. PATIENT IS CURRENTLY TAKING TIZANIDINE SHE DOES FIND HELPFUL HOWEVER IT MAKES HER SLEEPY SO SHE HAS DROPPED HER DOSING DOWN TO TWICE DAILY DOSING. FALL RISK SCREENING: SCREENING :NO FALLS REPORTED IN THE LAST YEAR PAIN SCREENING: PATIENT HAS A COMPLAINT OF ACUTE OR CHRONIC PAIN :YES LOCATION OF PAIN:NECK INTENSITY OF PAIN (SCALE OF 1 TO 10):8 WHAT DOES YOUR PAIN FEEL LIKE:ACHING, BURNING, CONTINOUS, SHARP, STABBING, TENDER, THROBBING, SORE, SHOOTING DURATION:CONTINOUS, CONSTANT, ALL DAY, ONLY WITH SPECIFIC ACTIVITIES PAIN IS INCREASED BY:ACTIVITIES PAIN IS DECREASED BY:USE OF PAIN MEDICATIONS TYLENOL 600MG EVERY 6HRS PRN PAIN HAS INTERFERED WITH THE FOLLOWING:MOOD, HOUSEWORK, RELATIONSHIP WITH OTHERS, ENJOYMENT OF LIFE PLAN/GOALS/TREATMENT/INTERVENTION/FOLLOW UP:SEE PLAN NURSING NOTE: -. PAIN CENTER INTAKE QUESTIONS: DO YOU HAVE A HISTORY OF MRSA? :NO DO YOU TAKE A BLOOD THINNERS? :YES LAURA, 04/03/20 @ 10PM DO YOU HAVE ANY BLEEDING DISORDERS? :NO ANY NEW NUMBNESS OR WEAKNESS IN YOUR LEGS OR ARMS? :NO ANY PACEMAKER,DEFIBRILLATOR, OR DORSAL COLUMN STIMULATOR? :NO DO YOU HAVE ANY RASHES OR OPEN SORES? :NO ARE YOU ALLERGIC TO IV DYE? :NO ARE YOU DIABETIC? :NO ANY NEW PROBLEMS WITH YOUR MEDICATIONS? :NO HAVE YOU RECEIVED A VACCINE IN THE PAST 30 DAYS? :NO DO YOU PLAN TO RECEIVE A VACCINE IN THE NEXT 21 DAYS? :NO DO YOU NEED ANY PRESCRIPTION? :NO DO YOU TAKE ANY IMMUNOSUPPRESSIVE MEDICATIONS? :NO IS THERE A CHANCE YOU COULD BE ? :NO ARE YOU BREAST FEEDING? :NO CURRENT MEDICATIONS TAKING ALBUTEROL SULFATE HFA 108 (90 BASE) MCG/ACT AEROSOL SOLUTION 2 PUFFS NEEDED INHALATION EVERY 4 HRS TAKING LAMOTRIGINE 100 MG TABLET 1 TABLET ORALLY BID TAKING LEVOTHYROXINE SODIUM 75 MCG TABLET 1 TABLET ORALLY ONCE A DAY TAKING LOSARTAN POTASSIUM 50 MG TABLET 1 TABLET ORALLY ONCE A DAY TAKING VITAMIN D 59666 U TABLET 1 TABLET ORALLY ONCE A WEEK TAKING SEROQUEL 50 MG TABLET 1 TABLET ORALLY ONCE A DAY TAKING BREO ELLIPTA 100-25 MCG/INH AEROSOL POWDER BREATH ACTIVATED 1 PUFF INHALATION ONCE A DAY TAKING SYMBICORT 160-4.5 MCG/ACT AEROSOL 2 PUFFS INHALATION TWICE A DAY TAKING ZYRTEC ALLERGY 10 MG TABLET 1 TABLET ORALLY ONCE A DAY TAKING TRIAMTERENE-HCTZ 37.5-25 MG TABLET 1 TAB ORALLY DAILY TAKING HYDROXYZINE HCL 50 MG TABLET 1 TAB ORALLY DAILY PRN TAKING ARIPIPRAZOLE 5 MG TABLET 1 TAB ORALLY DAILY TAKING FLUOXETINE 20 MGS 1 CAP ORALLY DAILY TAKING ACETAMINOPHEN 500 MG TABLET 1-2 ORALLY Q8H PRN TAKING NYSTATIN 125289 UNIT/GM CREAM 1 APPLICATION TO AFFECTED AREA EXTERNALLY TO AFFECTED AREA BENEATH BREAST TWICE A DAY TAKING TIZANIDINE HCL 4 MG TABLET 1 TABLET NEEDED ORALLY THREE TIMES A DAY TAKING FIBER-LAX 625 MG TABLET 2 TABLETS NEEDED ORALLY EVERY OTHER DAY NOT-TAKING CHLORTHALIDONE 12.5 12.5MG TABLET 1 TABLET ORAL ONCE DAILY NOT-TAKING COLACE 100 MG CAPSULE 1 CAPSULE NEEDED ORALLY BID NOT-TAKING COUMADIN 5 MG TABLET 1 TABLET ORALLY ONCE A DAY NOT-TAKING ALEVE 220 MG TABLET 2 ORALLY EVERY 12 HRS NEEDED NOT-TAKING IBUPROFEN 800 MG TABLET 1 TABLET WITH FOOD OR MILK NEEDED ORALLY THREE TIMES A DAY NEEDED MEDICATION LIST REVIEWED AND RECONCILED WITH THE PATIENT PAST MEDICAL HISTORY PTSD HYPOTHYROID CHRONIC 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 DEPRESSION BORDERLINE PERSONALITY DISORDER TACHYCARDIA MENIERES DISEASE DVT 06/2018- LEFT LOWER PE 06/2018 FIBROMYALGIA -RHEUMATOLOGY TREMOR ALLERGIES PREDNISON: SEVERE ANGER - ALLERGY PENICILLIN (FOR ALLERGIES USE ONLY): PT UNSURE - ALLERGY TRAZODONE HCL: SEVERE ANGER - ALLERGY SURGICAL HISTORY LASIK BOTH EYES CARDIAC CATHETERIZATION 1998 D&C X2 1998,1999 CERVICAL CERCLAGE X3 BTL 2007 COLPOSCOPY WITH LILIAM 11/18/16 & 01/19/18 LEFT KNEE MENISCUIS REPAIR AND FIXED ANOTHER LIGAMENT TOO - HOSPITALIZED FOR DVT AND 2 DAYS LATER PE JUN 2018 LEEP, DR ADONIS, BON 3 ON COLP 05/2018 COLONOSCOPY WITH LILIAM 05/29/19 FAMILY HISTORY FATHER: 65 YRS, MS MOTHER: 54 YRS, CHF, DIAGNOSED WITH HYPERTENSION, UNSPECIFIED HEART DISEASE, UNSPECIFIED NONPSYCHOTIC MENTAL DISORDER FOLLOWING ORGANIC BRAIN DAMAGE DAUGHTER: ALIVE 19 YRS 2 SON(S) , 2 DAUGHTER(S) . PT UNAWARE OF CANCER HX IN THE FAMILY. FATHER WAS ADOPTED\\\\\\\\NMOM-CHF,UNDIAGNOSED PSHCH ISSUES\\\\\\\\N2 SONS FROM SMOKE INHALATION\\\\\\\\NDAUGHTER-HEALTHY\\N\\N3 CHILDREN - STILL (GIRL) 10 & 12 DAD FROM BRAIN HEMORRHAGE. SOCIAL HISTORY GENERAL: TOBACCO USE ARE YOU A:NONSMOKER LATEX QUESTIONNAIRE LATEX ALLERGY : HAVE YOU EVER DEVELOPED ANY TYPE OF REACTION AFTER HANDLING LATEX PRODUCTS SUCH RUBBER GLOVES, CONDOMS, DIAPHRAGMS, BALLOONS, SOCKS, OR UNDERWEAR?NO LATEX ALLERGY : HAVE YOU EVER DEVELOPED ANY TYPE OF REACTION DURING OR AFTER DENTAL APPOINTMENT, VAGINAL/RECTAL EXAMINATION, SURGICAL PROCEDURE, OR ANY OTHER EXPOSURE?NO LATEX RISK : HAVE YOU EVER HAD ANY DIFFICULTY BREATHING OR HIVES AFTER EATING OR HANDLING ANY FRUITS, OR VEGETABLES; SUCH KIWI, BANANAS, STONE FRUITS, OR CHESTNUTSNO LATEX RISK : DO YOU HAVE A PREVIOUS PERSONAL HISTORY OF MORE THAN NINE SURGERIES, SPINA BIFIDA, OR REPEATED CATHERIZATIONS? NO LATEX RISK : ARE YOU FREQUENTLY EXPOSED TO LATEX PRODUCTS IN YOUR OCCUPATION?NO DATE ASKED : 04/04/2020 BMI CARE GOAL FOLLOW-UP ABOVE NORMAL BMI FOLLOW-UPWEIGHT MONITORING CAFFEINE CAFFEINE USE?YES HOW OFTEN AND HOW MUCH? OCCASIONAL COFFEE SEXUAL HX HAD SEX IN THE LAST 12 MONTHS (VAGINAL, ORAL, OR ANAL)?YES WITHMEN ONLY USE PROTECTION?NO LMP: HAVE YOU EVER HAD AN STD?YES OTHER?YES HERPES?NO SYPHILIS?NO GC?NO CHLAMYDIA?NO HIV / HEP-C SCREENING HIV TEST OFFERED TO PATIENT:YES DATE OFFERED:06/08/2019 TEST ACCEPTED:NO REASON:PATIENT DECLINED BROCHURE PROVIDED TO PATIENTNO LANGUAGE LANGUAGES SPOKEN:IVORIAN LEARNING BARRIERS / SPECIAL NEEDS CHANGE FROM LAST VISIT?NO BARRIERS TO LEARNING?NO HEARING IMPAIRED?NO VISION IMPAIRED?YES COGNITIVELY IMPAIRED?NO :CORRECTIVE LENSES READINESS TO LEARN?YES LEARNING PREFERENCES?NO LEARNING CAPABILITIES PRESENT?YES EMOTIONAL BARRIERS?NO SPECIAL DEVICES?NO 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 DIET: REGULAR. EXERCISE: WALKS 5 DAYS A WEEK 2 MILES. MARITAL STATUS: . OTHERS AT HOME: SPOUSE, CHILD. HOSPITALIZATION/MAJOR DIAGNOSTIC PROCEDURE SURGERY RELATED MENTAL HEALTH 03/2018 S/P KNEE SURGERY- DVT/PULM EMBOLISM 06/2018 REVIEW OF SYSTEMS CONSTITUTIONAL: ANY RECENT FEVER NO . CHILLS NO . WEIGHT CHANGE OF UNKNOWN REASONS NO . GASTROENTEROLOGY: NEW UNEXPLAINABLE CHANGES IN BOWEL CONTROL NO . CONSTIPATION NO . GENITOURINARY: ANY NEW CHANGE IN BLADDER CONTROL? NO . NEUROLOGY: NEW ONSET DIZZINESS OR NEUROLOGICAL CHANGES NOT MENTIONED NO . NEW NUMBNESS OR PAIN PATTERNS NOT MENTIONED AND PERTINENT TO TODAY'S VISIT NO . CARDIOLOGY: NEW CHEST PRESSURE NO . NEW CHEST PAIN NO . RESPIRATORY: UNEXPLAINABLE COUGH NO . NEW SHORTNESS OF BREATH NO . VITAL SIGNS WT 245.4 LBS, HT 65", BMI 40.83 INDEX, BP 143/94 MM HG, HR 79 /MIN, RR 18 /MIN, TEMP 97.0 F, OXYGEN SAT % 99%, SAFE IN ENV? (Y/N) Y, NA INITIALS MO 09:[facility]. EXAMINATION GENERAL EXAMINATION: GENERALNO ACUTE DISTRESS, WELL NOURISHED AND HYDRATED. PSYCHAPPROPRIATE MOOD AND AFFECT . NECK:TENDER ALONG CERVICAL SPINE, SURROUNDING SKIN SHOWS NO ERYTHEMA, ECCHYMOSIS, INCREASED WARMTH, AND/OR SKIN ERUPTIONS NOTED. . LUNGS:CLEAR TO AUSCULTATION BILATERALLY, NO WHEEZES, RHONCHI, RALES. HEART:NO MURMURS, REGULAR RATE AND RHYTHM. ASSESSMENTS CERVICAL DISC DISORDER WITH RADICULOPATHY OF CERVICOTHORACIC REGION - M50.13 (PRIMARY) TREATMENT CERVICAL DISC DISORDER WITH RADICULOPATHY OF CERVICOTHORACIC REGION DECREASE TIZANIDINE HCL TABLET, 2 MG, 1 TABLET NEEDED, ORALLY, THREE TIMES A DAY, 30 DAYS, 90, REFILLS 2 [facility] MRI SPINE, CERVICAL WITHOUT [id number] CLINICAL NOTES: 40-YEAR-OLD FEMALE IN FOR CHRONIC PAIN FOLLOW-UP. GIVEN PRESENTING SYMPTOMS RECOMMENDED CERVICAL MRI AND DECREASING TIZANIDINE TO 2 MG. PATIENT HAS EXPRESSED UNDERSTANDING OF AND WAS IN AGREEMENT WITH TREATMENT PLAN. GIVEN TIME TO ASK QUESTIONS AND EXPRESS CONCERNS. PROCEDURE CODES FA211 ESTABILISHED PATIENT [facility] CHARGE DISPOSITION & COMMUNICATION FOLLOW UP AFTER IMAGING (REASON: CERVICAL MRI ) ELECTRONICALLY SIGNED BY BONILLA MITTAL ON 04/05/2020 AT 08:35 AM EDT DISCLAIMER : THIS IS A VISIT SUMMARY EXTRACTED FROM THE [employer] CHART. IT IS NOT A COPY OF THE [employer] PROGRESS NOTE. OLIVIA
== END ==
LOC: M PAIN 09:30
PROVIDERS: ATTEND Family Medicine
DX: M50.13 Cervical disc disorder with radiculopathy, cervicothoracic region (principal)
CPT/HCPCS: 99213; G0463

== ENCOUNTER → 2020-05-19 | Outpatient (CLI) | payer OTHER ==
--- NOTE | 2020-05-19 14:36 | REPVR ---
PROCEDURE INFORMATION: Exam: MR Cervical Spine Without Contrast Exam date and time: 05/19/2020 1:25 PM Age: 40 years old Clinical indication: Neck pain; Additional info: Cervical disc disorder TECHNIQUE: Imaging protocol: Multiplanar magnetic resonance images of the cervical spine without contrast. COMPARISON: MRI-Spine,Cervical without con 12/06/2014 12:00 PM FINDINGS: Again seen is straightening and slight reversal of cervical lordosis. There is stable slight retrolisthesis C6 on C7. Vertebral heights are maintained. No acute fracture. No evidence marrow edema or suspicious bone marrow lesions. No definite abnormal spinal cord signal. Small amount increased signal on STIR images is likely artifactual and not seen on sagittal or axial T2 images. There is cervical disc desiccation. There is disc height loss greatest at C4-C5 to C6-C7. C2-C3 is unremarkable without spinal stenosis or neural foraminal narrowing. C3-C4 shows disc osteophyte complex. There is a new shallow right paracentral protrusion causing slight right ventral cord flattening. There is mild overall spinal stenosis. There is new and likely mild to moderate right and mild left neural foraminal narrowing. C4-C5 shows mild disc osteophyte complex and a stable small left paracentral disc protrusion with mild left ventral cord flattening and mild spinal stenosis. There is unchanged and likely mild bilateral neural foraminal narrowing. C5-C6 shows stable left paracentral protrusion with mild left ventral cord flattening and mild spinal stenosis. There is stable no right and mild left neural foraminal narrowing. C6-C7 shows disc osteophyte complex. There is right paracentral broad-based protrusion which appears slightly increased. There is slight ventral cord flattening and mild spinal stenosis. There is likely mild bilateral neural foraminal narrowing. C7-T1 is unremarkable. Again seen right T2 perineural cyst. IMPRESSION: Levels disc osteophyte and disc protrusions mild ventral cord flattening mild spinal stenosis. Neural foraminal narrowing appears slightly increased several levels. Electronically signed by: Perla Mancilla On 05/19/2020 14:35:50 PM
== END ==
LOC: M RAD 13:19
PROVIDERS: ATTEND Family Medicine
DX: M50.13 Cervical disc disorder with radiculopathy, cervicothoracic region (principal); Z12.4 Encounter for screening for malignant neoplasm of cervix; R87.612 Low grade squamous intraepithelial lesion on cytologic smear of cervix (LGSIL); R87.810 Cervical high risk human papillomavirus (HPV) DNA test positive
CPT/HCPCS: 72141; 87624; G0101; G0123

== ENCOUNTER → 2020-05-19 | Outpatient (REF) | payer OTHER | LOC: M SFHCWAGY 11:52 | PROVIDERS: ATTEND Nurse Practitioner Women's Health | DX: Z12.4 Encounter for screening for malignant neoplasm of cervix (principal); R87.612 Low grade squamous intraepithelial lesion on cytologic smear of cervix (LGSIL); R87.810 Cervical high risk human papillomavirus (HPV) DNA test positive ==

== ENCOUNTER → 2020-06-12 | Outpatient (CLI) | payer OTHER | LOC: M PAIN 09:35 | PROVIDERS: ATTEND Family Medicine | DX: M50.13 Cervical disc disorder with radiculopathy, cervicothoracic region (principal) ==

== ENCOUNTER → 2020-06-21 | Outpatient (CLI) | payer OTHER, MEDICARE | LOC: M LABSMTC 09:34 | PROVIDERS: ATTEND Anesthesiology | DX: Z11.59 Encounter for screening for other viral diseases (principal) | CPT/HCPCS: C9803; U0003 ==

== ENCOUNTER → 2020-07-26 | Outpatient (CLI) | payer OTHER, MEDICARE | LOC: M LABSMTC 09:55 | PROVIDERS: ATTEND Anesthesiology | DX: Z20.828 Contact with and (suspected) exposure to other viral communicable diseases (principal) ==

== ENCOUNTER → 2020-07-31 | Outpatient (CLI) | payer OTHER ==
[~2020-07-31] MED LIST changes: +ISOVUE-M 300 61% 15ML VIAL As Ordered ONE; +LIDOCAINE 1% SDV 30ML VIAL As Ordered ONE; +MIRT-62 PO; -REME15TA PO; +diazePAM 5MG TABLET As Ordered ONE; +methylPREDNISolone SUSP 40MG/ML 1ML VIAL (DEPO MEDROL) As Ordered ONE; +oxyCODONE 5MG TAB As Ordered ONE
--- NOTE | 2020-07-31 16:45 | REP ---
INDICATION: PAIN. COMPARISON: None. TECHNIQUE: C-arm views cervical spine performed. FINDINGS: A needle is seen at the cervicothoracic junction. A small amount of contrast is injected. IMPRESSION: 18 seconds of fluoroscopy time was utilized. <Electronically signed by Greg West > 07/31/20 [id number]
--- NOTE | 2020-08-02 02:46 | ECWPNPC ---
PATIENT NAME: LILIAM JACKSON : 1980 GENDER: FEMALE VISIT DATE: 07/31/2020 DISCHARGE DATE: 07/31/201736 VISIT LOCKED DATE TIME: PHYSICIAN: DOTTIE MCINTYRE MD RESOURCE: DOTTIE MCINTYRE MD REASON FOR APPOINTMENT 1. LINNETTE C7/T1 HISTORY OF PRESENT ILLNESS GENERAL: -. FALL RISK SCREENING: SCREENING :TWO OR MORE FALLS WITHOUT INJURY IN THE PAST YEAR PATIENT REPOTS MULTIPLE FALLS DUE TO MENIERES DISEASE AND LOSS OF BALANCE. PAIN SCREENING: PATIENT HAS A COMPLAINT OF ACUTE OR CHRONIC PAIN :YES LOCATION OF PAIN: LOW BACK, LEFT ARM, NECK INTENSITY OF PAIN (SCALE OF 1 TO 10):8 WHAT DOES YOUR PAIN FEEL LIKE:SHARP, STABBING, ACHING, CONTINOUS DURATION:CONTINOUS, AWAKENS FROM SLEEP PAIN IS INCREASED BY:ACTIVITIES, PROLONGED STANDING NURSING NOTE: -. PAIN CENTER INTAKE QUESTIONS: DO YOU HAVE A HISTORY OF MRSA? :NO DO YOU TAKE A BLOOD THINNERS? :YES ELIQUIS DO YOU HAVE ANY BLEEDING DISORDERS? :NO ANY NEW NUMBNESS OR WEAKNESS IN YOUR LEGS OR ARMS? :NO ANY PACEMAKER,DEFIBRILLATOR, OR DORSAL COLUMN STIMULATOR? :NO DO YOU HAVE ANY RASHES OR OPEN SORES? :NO ARE YOU ALLERGIC TO IV DYE? :NO ARE YOU DIABETIC? :NO ANY NEW PROBLEMS WITH YOUR MEDICATIONS? :NO HAVE YOU RECEIVED A VACCINE IN THE PAST 30 DAYS? :NO DO YOU PLAN TO RECEIVE A VACCINE IN THE NEXT 21 DAYS? :NO DO YOU TAKE ANY IMMUNOSUPPRESSIVE MEDICATIONS? :NO ANY HISTORY OF SEIZURES? :NO ANY HISTORY OF CARDIAC ISSUES OR EVENTS? :YES CARDIAC CATH 01/1998 DO YOU HAVE SLEEP APNEA? :NO ANY RECENT HEAD INJURY? :NO DO YOU HAVE ANY NEW INFECTIONS? :NO IS THERE A CHANCE YOU COULD BE ? :NO ARE YOU BREAST FEEDING? :NO WHEN DID YOU LAST EAT? : 07/30/201999 WHEN DID YOU LAST DRINK? : 07/31/20 1000 WHAT DID YOU LAST DRINK? : -WATER NAME OF PERSON DRIVING YOU HOME? : ANDREY () DO YOU HAVE ANY OTHER QUESTIONS OR CONCERNS? : NO CURRENT MEDICATIONS TAKING ALBUTEROL SULFATE HFA 108 (90 BASE) MCG/ACT AEROSOL SOLUTION 2 PUFFS NEEDED INHALATION EVERY 4 HRS, NOTES: MONTHS AGO TAKING LAMOTRIGINE 100 MG TABLET 1 TABLET ORALLY BID, NOTES: 07/31 1000 TAKING LEVOTHYROXINE SODIUM 75 MCG TABLET 1 TABLET ORALLY ONCE A DAY, NOTES: 07/31 1000 TAKING LOSARTAN POTASSIUM 50 MG TABLET 1 TABLET ORALLY ONCE A DAY, NOTES: 07/31 1000 TAKING VITAMIN D 52344 U TABLET 1 TABLET ORALLY ONCE A WEEK, NOTES: FRIDAY TAKING SEROQUEL 50 MG TABLET 1 TABLET ORALLY ONCE A DAY, NOTES: 07/30 2200 TAKING BREO ELLIPTA 100-25 MCG/INH AEROSOL POWDER BREATH ACTIVATED 1 PUFF INHALATION ONCE A DAY, NOTES: 07/31 1000 TAKING SYMBICORT 160-4.5 MCG/ACT AEROSOL 2 PUFFS INHALATION TWICE A DAY, NOTES: 07/31 1000 TAKING ZYRTEC ALLERGY 10 MG TABLET 1 TABLET ORALLY ONCE A DAY, NOTES: 07/31 1000 TAKING TRIAMTERENE-HCTZ 37.5-25 MG TABLET 1 TAB ORALLY DAILY, NOTES: 07/31 1000 TAKING HYDROXYZINE HCL 50 MG TABLET 1 TAB ORALLY DAILY PRN, NOTES: NONE IN PAST WEEK TAKING ARIPIPRAZOLE 5 MG TABLET 1 TAB ORALLY DAILY, NOTES: 07/31 1000 TAKING FLUOXETINE 20 MGS 1 CAP ORALLY DAILY, NOTES: 07/31 1000 TAKING ACETAMINOPHEN 500 MG TABLET 1-2 ORALLY Q8H PRN, NOTES: 07/29 TAKING NYSTATIN 936354 UNIT/GM CREAM 1 APPLICATION TO AFFECTED AREA EXTERNALLY TO AFFECTED AREA BENEATH BREAST TWICE A DAY, NOTES: NONE IN PAST WEEK TAKING FIBER-LAX 625 MG TABLET 2 TABLETS NEEDED ORALLY EVERY OTHER DAY, NOTES: 07/31 1000 TAKING TIZANIDINE HCL 2 MG TABLET 1 TABLET NEEDED ORALLY THREE TIMES A DAY, NOTES: 07/31 1000 TAKING ELIQUIS 5 MG TABLET DIRECTED ORALLY BID, NOTES: 07/27/20 NOT-TAKING CHLORTHALIDONE 12.5 12.5MG TABLET 1 TABLET ORAL ONCE DAILY NOT-TAKING COLACE 100 MG CAPSULE 1 CAPSULE NEEDED ORALLY BID NOT-TAKING COUMADIN 5 MG TABLET 1 TABLET ORALLY ONCE A DAY NOT-TAKING ALEVE 220 MG TABLET 2 ORALLY EVERY 12 HRS NEEDED NOT-TAKING IBUPROFEN 800 MG TABLET 1 TABLET WITH FOOD OR MILK NEEDED ORALLY THREE TIMES A DAY NEEDED MEDICATION LIST REVIEWED AND RECONCILED WITH THE PATIENT PAST MEDICAL HISTORY PTSD HYPOTHYROID CHRONIC 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 DEPRESSION BORDERLINE PERSONALITY DISORDER TACHYCARDIA MENIERES DISEASE DVT 06/2018- LEFT LOWER PE 06/2018 FIBROMYALGIA -RHEUMATOLOGY TREMOR ALLERGIES PREDNISON: SEVERE ANGER - ALLERGY PENICILLIN (FOR ALLERGIES USE ONLY): PT UNSURE - ALLERGY TRAZODONE HCL: SEVERE ANGER - ALLERGY SURGICAL HISTORY LASIK BOTH EYES CARDIAC CATHETERIZATION 1998 D&C X2 1998,1999 CERVICAL CERCLAGE X3 BTL 2007 COLPOSCOPY WITH LILIAM 11/18/16 & 01/19/18 LEFT KNEE MENISCUIS REPAIR AND FIXED ANOTHER LIGAMENT TOO - HOSPITALIZED FOR DVT AND 2 DAYS LATER PE JUN 2018 [facility], DR LAMB, BON 3 ON COLP 05/2018 COLONOSCOPY WITH LILIAM 05/29/19 FAMILY HISTORY FATHER: 65 YRS, MS MOTHER: 54 YRS, CHF, DIAGNOSED WITH HYPERTENSION, UNSPECIFIED HEART DISEASE, UNSPECIFIED NONPSYCHOTIC MENTAL DISORDER FOLLOWING ORGANIC BRAIN DAMAGE DAUGHTER: ALIVE 19 YRS 2 SON(S) , 2 DAUGHTER(S) . PT UNAWARE OF CANCER HX IN THE FAMILY. FATHER WAS ADOPTED\\\\\\\\NMOM-CHF,UNDIAGNOSED PSHCH ISSUES\\\\\\\\N2 SONS FROM SMOKE INHALATION\\\\\\\\NDAUGHTER-HEALTHY\\N\\N3 CHILDREN - STILL (GIRL) 10 & 12 DAD FROM BRAIN HEMORRHAGE. SOCIAL HISTORY GENERAL: TOBACCO USE ARE YOU A:NONSMOKER LATEX QUESTIONNAIRE LATEX ALLERGY : HAVE YOU EVER DEVELOPED ANY TYPE OF REACTION AFTER HANDLING LATEX PRODUCTS SUCH RUBBER GLOVES, CONDOMS, DIAPHRAGMS, BALLOONS, SOCKS, OR UNDERWEAR?NO LATEX ALLERGY : HAVE YOU EVER DEVELOPED ANY TYPE OF REACTION DURING OR AFTER DENTAL APPOINTMENT, VAGINAL/RECTAL EXAMINATION, SURGICAL PROCEDURE, OR ANY OTHER EXPOSURE?NO LATEX RISK : HAVE YOU EVER HAD ANY DIFFICULTY BREATHING OR HIVES AFTER EATING OR HANDLING ANY FRUITS, OR VEGETABLES; SUCH KIWI, BANANAS, STONE FRUITS, OR CHESTNUTSNO LATEX RISK : DO YOU HAVE A PREVIOUS PERSONAL HISTORY OF MORE THAN NINE SURGERIES, SPINA BIFIDA, OR REPEATED CATHERIZATIONS? NO LATEX RISK : ARE YOU FREQUENTLY EXPOSED TO LATEX PRODUCTS IN YOUR OCCUPATION?NO DATE ASKED : 07/28/2020 BMI CARE GOAL FOLLOW-UP ABOVE NORMAL BMI FOLLOW-UPWEIGHT MONITORING ALCOHOL SCREENING DID YOU HAVE A DRINK CONTAINING ALCOHOL IN THE PAST YEAR?YES HOW OFTEN DID YOU HAVE SIX OR MORE DRINKS ON ONE OCCASION IN THE PAST YEAR?NEVER (0 POINTS) HOW MANY DRINKS DID YOU HAVE ON A TYPICAL DAY WHEN YOU WERE DRINKING IN THE PAST YEAR?1 OR 2 (0 POINTS) HOW OFTEN DID YOU HAVE A DRINK CONTAINING ALCOHOL IN THE PAST YEAR?MONTHLY OR LESS (1 POINT) POINTS1 INTERPRETATIONNEGATIVE RECREATIONAL DRUG USE DRUG USE?NO CAFFEINE CAFFEINE USE?YES HOW OFTEN AND HOW MUCH? OCCASIONAL COFFEE SEXUAL HX HAD SEX IN THE LAST 12 MONTHS (VAGINAL, ORAL, OR ANAL)?YES WITHMEN ONLY USE PROTECTION?NO LMP: HAVE YOU EVER HAD AN STD?YES OTHER?YES HERPES?NO SYPHILIS?NO GC?NO CHLAMYDIA?NO HIV / HEP-C SCREENING HIV TEST OFFERED TO PATIENT:YES DATE OFFERED:06/08/2019 TEST ACCEPTED:NO REASON:PATIENT DECLINED BROCHURE PROVIDED TO PATIENTNO LANGUAGE LANGUAGES SPOKEN:LAO LEARNING BARRIERS / SPECIAL NEEDS CHANGE FROM LAST VISIT?NO BARRIERS TO LEARNING?NO HEARING IMPAIRED?NO VISION IMPAIRED?YES :CORRECTIVE LENSES COGNITIVELY IMPAIRED?NO READINESS TO LEARN?YES LEARNING PREFERENCES?NO LEARNING CAPABILITIES PRESENT?YES EMOTIONAL BARRIERS?NO SPECIAL DEVICES?NO INVOICING SPECIALIST 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 DIET: REGULAR. EXERCISE: WALKS 5 DAYS A WEEK 2 MILES. MARITAL STATUS: . OTHERS AT HOME: SPOUSE, CHILD. PAIN CLINIC PFS, CLERGY, PUBLIC HEALTH REFERRALS PFS REFERRAL NEEDED?NO CLERGY REFERRAL NEEDED?NO PUBLIC HEALTH REFERRAL NEEDED?NO WAS THE PROVIDER NOTIFIED OF ANY PERTINENT INFO?YES HAS THE PATIENT BEEN EDUCATED REGARDING HIS/HER PLAN OF CARE?YES HAS THE PATIENT BEEN EDUCATED REGARDING PAIN, THE RISK FOR PAIN, THE IMPORTANCE OF EFFECTIVE PAIN MANAGEMENT, AND THE PAIN ASSESSMENT PROCESS?YES ADVANCE DIRECTIVE ADVANCE DIRECTIVE DISCUSSED WITH PATIENT:YES PT REQUESTED HCP FORM AND WAS GIVEN HCP AND DISCUSSED HCP. HOSPITALIZATION/MAJOR DIAGNOSTIC PROCEDURE SURGERY RELATED MENTAL HEALTH 03/2018 S/P KNEE SURGERY- DVT/PULM EMBOLISM 06/2018 VITAL SIGNS WT 247.4 LBS, HT 65", BMI 41.17 INDEX, BP 136/86 MM HG, HR 77 /MIN, RR 18 /MIN, TEMP 96.2 F, OXYGEN SAT % 96%, SAFE IN ENV? (Y/N) YES, NA INITIALS SC 13:57, REVIEWED BY: DMITRY RN @ 3192. EXAMINATION GENERAL EXAMINATION: THE PATIENT IS ALERT, ORIENTED TIMES THREE AND COOPERATIVE. HEART SHOWS REGULAR RHYTHM, NO MURMURS AND NO GALLOPS. LUNGS ARE CLEAR TO AUSCULTATION. ASSESSMENTS CERVICAL DISC DISORDER WITH RADICULOPATHY, UNSPECIFIED CERVICAL REGION - M50.10 (PRIMARY) TREATMENT CERVICAL DISC DISORDER WITH RADICULOPATHY, UNSPECIFIED CERVICAL REGION [facility] FLUORO GUIDE SPINE INJECTION (PAIN)[id number] SALINE MICKEY CHE 07/31/2020 3:15:55 PM > IV STARTED ON 1ST ATTEMPT IN RIGHT HAND, #22 BY Evan FLEMING RN, PATIENT TOLERATED IV START WELL. MEDICATION: VALIUM TAB 10MG ORALLY (DIAZEPAM)RONI STEPHENS 07/31/2020 2:41:59 PM > VERIFIED MICKEY FLEMING 07/31/2020 2:44:10 PM > VALIUM 5 MG TABS (2) LOT# [id number], EXP DATE 01/03. MICKEY FLEMING 07/31/2020 2:47:45 PM > ADMINISTERED 1447. MEDICATION: OXYCODONE HCL TAB 10MG ORALLYRONI STEPHENS 07/31/2020 2:42:20 PM > VERIFIED MICKEY FLEMING 07/31/2020 2:45:17 PM > OXYCODONE 5MG TABS (2) LOT# [id number]. EXP# 11/06 MICKEY FLEMING 07/31/2020 2:48:10 PM > ADMINISTERED 1447 NOTES: DISCHARGE INSTRUCTIONS REVIEWED WITH PATIENT. PATIENT VERBALIZED UNDERSTANDING OF DISCHARGE INSTRUCTIONS. IV DISCONTINUED SITE INTACT. VERIFIED WITH DR MCINTYRE THAT PATIENT MAY RESUME ELIQUIS T[place]OOW AND COMMUNICATED THIS TO PATIENT WHO VERBALIZED UNDERSTANDING. OTHERS NOTES: 07/28/20 1730 PAT COMPLETED. Mauro MILIAN, FORENSIC PSYCHOLOGIST. PROCEDURES PAIN NURSING RECORD PRE-PROCEDURE IV SITE RIGHT HAND, IV STARTED # 22, IV STARTED BY: Mauro FLEMING RN, IV ATTEMPTS 1, PRE-PROCEDURE ORAL MEDICATIONS PER MD ORDER PROCEDURE IN ROOM 1540, PHYSICIAN IN ROOM 1552, START 1556, FINISH 1607, PHYSICIAN OUT OF ROOM 1609, OUT OF ROOM 1612, STEROID DEPOMEDROL, O2 RA, ECG NORMAL SINUS, PATIENT SHIELDED YES, SAFETY STRAP YES, PREP BETADINE BY Evan FLEMING RN, IV INFUSED N/A, DRESSING TEGADERM BY DR MCINTYRE LOC: 1. ALERT, ORIENTED RESP: 1. REGULAR, NO DYSPNEA COLOR: 1. PINK SKIN: 1. WARM, DRY POSITION: 1. PRONE VITALS: MICKEY FLEMING 07/31/2020 3:45:18 PM > 138/93 HR 65 16 98% , MICKEY FLEMING 07/31/2020 4:00:00 PM > 133/85 HR 63, 16 97% , MICKEY FLEMING 07/31/2020 4:20:36 PM > 141/93 HR 70 16 99% D/C V/S DISCHARGE: POST PAIN 6, DRESSING SITE DRY AND INTACT, IV DISCONTINUED, SITE CLEAR, CATHETER INTACT, GAIT STEADY, TEACHING COMPLETED, PATIENT ACKNOWLEDGES UNDERSTANDING YES, PATIENT DISCHARGED AT 1647 PN CERVICAL EPIDURAL PRE PROCEDURE DIAGNOSIS CERVICAL DISC DISORDER WITH RADICULOPATHY POST PROCEDURE DIAGNOSIS CERVICAL DISC DISORDER WITH RADICULOPATHY PROCEDURE CERVICAL EPIDURAL STEROID INJECTION UNDER FLUOROSCOPIC GUIDANCE SURGEON DR. DOTTIE MCINTYRE ENGINEER AND GEOLOGIST NONE ANESTHESIA LOCAL PRE PROCEDURE NOTE THE PATIENT HAS A HISTORY OF CHRONIC CERVICAL PAIN. I EVALUATED THE PATIENT AND REVIEWED THE CHART. I WENT OVER THE RISKS, ALTERNATIVES, AND BENEFITS ASSOCIATED WITH THIS PROCEDURE. I DISCUSSED THAT THE USE OF STEROIDS MAY CONTRIBUTE TO IMMUNOSUPPRESSION OF THE PATIENT'S BODY AGAINST INFECTIONS SUCH COVID-19. THE PATIENT IS AWARE OF THE POTENTIAL COMPLICATIONS ASSOCIATED WITH THIS VIRUS, INCLUDING, BUT NOT LIMITED TO, . THE PATIENT WOULD LIKE TO PROCEED AND GIVE CONSENT TO PERFORMED THE PROCEDURE. THE PATIENT DENIES UNEXPLAINABLE WEIGHT LOSS, FEVER, CHILLS, OR NEW CHANGES IN URINARY OR BOWEL CONTROL. THE PATIENT IS COVID-19 NEGATIVE DESCRIPTION OF PROCEDURE THE PATIENT WAS BROUGHT TO THE PROCEDURE ROOM AND PLACED IN THE PRONE POSITION. THE CERVICOTHORACIC AREA WAS CLEANED WITH BETADINE SOLUTION AND DRAPED ASEPTICALLY. THE PROCEDURE WAS DONE UNDER STERILE CONDITIONS. A TIMEOUT WAS PERFORMED WHERE LATERALITY AND THE SITE OF THE PROCEDURE WERE CHECKED AND CONFIRMED WITH EVERYONE IN THE ROOM. UNDER FLUOROSCOPIC GUIDANCE, THE TARGET WAS SELECTED AT THE INTERLAMINAR LEVEL OF C7-T1. I CONFIRMED AGAIN WITH EVERYONE IN THE ROOM THE LATERALITY OF THE TARGET AT 1556. LIDOCAINE WAS USED TO NUMB THE SKIN AND THE SUBCUTANEOUS TISSUE BELOW IT. EPIDURAL TUOHY NEEDLE, 17-GAUGE, WAS ADVANCED UNDER FLUOROSCOPIC GUIDANCE AND FOLLOWING PATIENT FEEDBACK UNTIL THE EPIDURAL SPACE WAS REACHED 7 CM DEEP INTO THE SKIN BY THE LOSS OF RESISTANCE TECHNIQUE. ISOVUE-M DYE 30%, 0.25 ML, WAS INJECTED SHOWING ADEQUATE SPREAD OF THE DYE. THEN, A SOLUTION OF 3 ML OF NORMAL SALINE WITH DEPO-MEDROL 80MG WAS INJECTED SLOWLY FOLLOWING PATIENT FEEDBACK. THE MEDICATIONS WERE VERIFIED WITH THE NURSE. THERE WAS NO EVIDENCE OF BLOOD, PARESTHESIA OR CEREBROSPINAL FLUID DURING THE PROCEDURE. ESTIMATED BLOOD LOSS WAS LESS THAN 5 ML. THE PATIENT WAS SENT TO THE RECOVERY ROOM. THE PATIENT WAS MOVING THE EXTREMITIES AND DOING WELL. THERE WERE NO COMPLICATIONS DURING THE PROCEDURE. FLUOROSCOPY TIME WAS 17 SECONDS POST PROCEDURE NOTE I AM LOOKING FOR LONG-LASTING PAIN RELIEF. IF THE PATIENT IS NOT GETTING LONG-LASTING RELIEF, WE SHOULD DO SOME TRIGGER POINT INJECTIONS AND DEPENDING ON THE RESULTS OF THAT, CONSIDER WORKING WITH HER FACETS. THE PATIENT WILL BE SEEN IN A FOLLOW UP IN THE NEXT FEW WEEKS. I AM LOOKING FOR LONG LASTING RELIEF FOR THE PATIENT WITH THIS INTERVENTION. INSTRUCTIONS WERE GIVEN, QUESTIONS WERE ANSWERED, AND THE PATIENT EXPRESSED UNDERSTANDING AND AGREES WITH THE PLAN. I, HANS SANTACRUZ, DOCUMENTED THE ABOVE INFORMATION ACTING A SCRIBE FOR DR. MCINTYRE. I HAVE REVIEWED THE ABOVE DOCUMENT, WRITTEN BY HANS SANTACRUZ, CUSTOMER SERVICE TECHNICIAN, AND I VERIFY THAT IT IS ACCURATE PROCEDURE CODES 58763 CERVICAL/THORACIC W/ IMAGING DISPOSITION & COMMUNICATION FOLLOW UP FOLLOW UP WITH SCHOOL COUNSELLOR (REASON: POST LINNETTE) ELECTRONICALLY SIGNED BY DOTTIE MCINTYRE MD, MD ON 08/01/2020 AT 11:38 AM EST DISCLAIMER : THIS IS A VISIT SUMMARY EXTRACTED FROM THE yeppt CHART. IT IS NOT A COPY OF THE yeppt PROGRESS NOTE. MTDLaina
== END ==
LOC: M PAIN 14:00
PROVIDERS: ATTEND Anesthesiology
DX: M50.10 Cervical disc disorder with radiculopathy, unspecified cervical region (principal); F43.10 Post-traumatic stress disorder, unspecified; E03.9 Hypothyroidism, unspecified; G43.709 Chronic migraine without aura, not intractable, without status migrainosus; F32.9 Major depressive disorder, single episode, unspecified; F60.3 Borderline personality disorder; H81.09 Meniere's disease, unspecified ear; M79.7 Fibromyalgia; R25.1 Tremor, unspecified; Z86.718 Personal history of other venous thrombosis and embolism; Z79.01 Long term (current) use of anticoagulants; Z79.899 Other long term (current) drug therapy; Z88.0 Allergy status to penicillin; Z88.8 Allergy status to other drugs, medicaments and biological substances
CPT/HCPCS: 62321; J1030; Q9967

== ENCOUNTER → 2020-09-29 | Outpatient (CLI) | payer MEDICARE, OTHER ==
[~2020-09-29] MED LIST changes: -AMIT25TA PO; +AMIT25TA17 PO; +GABA-282 PO; -GABA-843 PO; -ISOVUE-M 300 61% 15ML VIAL As Ordered ONE; -LIDOCAINE 1% SDV 30ML VIAL As Ordered ONE; -diazePAM 5MG TABLET As Ordered ONE; -methylPREDNISolone SUSP 40MG/ML 1ML VIAL (DEPO MEDROL) As Ordered ONE; -oxyCODONE 5MG TAB As Ordered ONE
--- NOTE | 2020-10-02 23:07 | ECWPNPC ---
PATIENT NAME: LILIAM JACKSON : 1980 GENDER: FEMALE VISIT DATE: 09/29/2020 DISCHARGE DATE: 09/29/20 1045 VISIT LOCKED DATE TIME: PHYSICIAN: CARY HARO RESOURCE: CARY HARO REASON FOR APPOINTMENT 1. POST LINNETTE C7/T1 HISTORY OF PRESENT ILLNESS DEPRESSION SCREENING: PHQ-9 LITTLE INTEREST OR PLEASURE IN DOING THINGSNEARLY EVERY DAY FEELING DOWN, DEPRESSED, OR HOPELESSNEARLY EVERY DAY TROUBLE FALLING OR STAYING ASLEEP, OR SLEEPING TOO MUCHSEVERAL DAYS FEELING TIRED OR HAVING LITTLE ENERGYNEARLY EVERY DAY POOR APPETITE OR OVEREATING NEARLY EVERY DAY FEELING BAD ABOUT YOURSELF-OR THAT YOU ARE A FAILURE OR HAVE LET YOURSELF OR YOUR FAMILY DOWN NEARLY EVERY DAY TROUBLE CONCENTRATING ON THINGS, SUCH READING THE NEWSPAPER OR WATCHING TELEVISION SEVERAL DAYS MOVING OR SPEAKING SO SLOWLY THAT OTHER PEOPLE COULD HAVE NOTICED. OR THE OPPOSITE- BEING SO FIDGETY OR RESTLESS THAT YOU HAVE BEEN MOVING AROUND A LOT MORE THAN USUALNOT AT ALL THOUGHTS THAT YOU WOULD BE BETTER OFF , OR OF HURTING YOURSELF IN SOME WAY?SEVERAL DAYS(CONSIDER SUICIDE ASSESSMENT RISK) TOTAL SCORE:18 INTERPRETATIONMODERATELY SEVERE DEPRESSION PHQ-2 (2015 EDITION) LITTLE INTEREST OR PLEASURE IN DOING THINGS?NEARLY EVERY DAY FEELING DOWN, DEPRESSED, OR HOPELESS?NEARLY EVERY DAY TOTAL SCORE6 40-YEAR-OLD FEMALE IN FOR POST CERVICAL EPIDURAL STEROID INJECTION FOLLOW-UP. PATIENT FEELS THE PROCEDURE WAS NOT SUCCESSFUL. SHE RATES HER PAIN CURRENTLY AT AN 8 OUT OF 10 AND DESCRIBES IT SHARP, TENDER, AND THROBBING. PATIENT ADMITS TO BEING ON MELOXICAM IN THE PAST FURTHER STATING THAT IT DID NOT HELP. PAIN CENTER INTAKE QUESTIONS: DO YOU HAVE A HISTORY OF MRSA? :NO DO YOU TAKE A BLOOD THINNERS? :YES LAURA, 04/03/20 @ 10PM DO YOU HAVE ANY BLEEDING DISORDERS? :NO ANY NEW NUMBNESS OR WEAKNESS IN YOUR LEGS OR ARMS? :NO ANY PACEMAKER,DEFIBRILLATOR, OR DORSAL COLUMN STIMULATOR? :NO DO YOU HAVE ANY RASHES OR OPEN SORES? :NO ARE YOU ALLERGIC TO IV DYE? :NO ARE YOU DIABETIC? :NO ANY NEW PROBLEMS WITH YOUR MEDICATIONS? :NO HAVE YOU RECEIVED A VACCINE IN THE PAST 30 DAYS? :NO DO YOU PLAN TO RECEIVE A VACCINE IN THE NEXT 21 DAYS? :NO DO YOU NEED ANY PRESCRIPTION? :NO DO YOU TAKE ANY IMMUNOSUPPRESSIVE MEDICATIONS? :NO IS THERE A CHANCE YOU COULD BE ? :NO ARE YOU BREAST FEEDING? :NO GENERAL: -. FALL RISK SCREENING: SCREENING :NO FALLS REPORTED IN THE LAST YEAR PAIN SCREENING: PATIENT HAS A COMPLAINT OF ACUTE OR CHRONIC PAIN :YES LOCATION OF PAIN:LOW BACK LIGHT IN THE MIDDLE OF THE LOWER BACK OF THE TAILONE INTENSITY OF PAIN (SCALE OF 1 TO 10):8 WHAT DOES YOUR PAIN FEEL LIKE:SHARP, TENDER, THROBBING DURATION:CONTINOUS, CONSTANT, ALL DAY PAIN IS INCREASED BY:ACTIVITIES DOING HOUSE WORK PAIN IS DECREASED BY:OTHERS " NOTHING IS WORKING" HEAT/ICE PACK NURSING NOTE: -. CURRENT MEDICATIONS TAKING ALBUTEROL SULFATE HFA 108 (90 BASE) MCG/ACT AEROSOL SOLUTION 2 PUFFS NEEDED INHALATION EVERY 4 HRS TAKING LAMOTRIGINE 100 MG TABLET 1 TABLET ORALLY BID TAKING LEVOTHYROXINE SODIUM 75 MCG TABLET 1 TABLET ORALLY ONCE A DAY TAKING LOSARTAN POTASSIUM 50 MG TABLET 1 TABLET ORALLY ONCE A DAY TAKING VITAMIN D 40205 U TABLET 1 TABLET ORALLY ONCE A WEEK TAKING SEROQUEL 50 MG TABLET 1 TABLET ORALLY ONCE A DAY TAKING BREO ELLIPTA 100-25 MCG/INH AEROSOL POWDER BREATH ACTIVATED 1 PUFF INHALATION ONCE A DAY TAKING SYMBICORT 160-4.5 MCG/ACT AEROSOL 2 PUFFS INHALATION TWICE A DAY TAKING ZYRTEC ALLERGY 10 MG TABLET 1 TABLET ORALLY ONCE A DAY TAKING TRIAMTERENE-HCTZ 37.5-25 MG TABLET 1 TAB ORALLY DAILY TAKING HYDROXYZINE HCL 50 MG TABLET 1 TAB ORALLY DAILY PRN TAKING ARIPIPRAZOLE 5 MG TABLET 1 TAB ORALLY DAILY TAKING FLUOXETINE 20 MGS 1 CAP ORALLY DAILY TAKING ACETAMINOPHEN 500 MG TABLET 1-2 ORALLY Q8H PRN TAKING NYSTATIN 520897 UNIT/GM CREAM 1 APPLICATION TO AFFECTED AREA EXTERNALLY TO AFFECTED AREA BENEATH BREAST TWICE A DAY TAKING FIBER-LAX 625 MG TABLET 2 TABLETS NEEDED ORALLY EVERY OTHER DAY TAKING TIZANIDINE HCL 2 MG TABLET 1 TABLET NEEDED ORALLY THREE TIMES A DAY TAKING ELIQUIS 5 MG TABLET DIRECTED ORALLY BID NOT-TAKING CHLORTHALIDONE 12.5 12.5MG TABLET 1 TABLET ORAL ONCE DAILY NOT-TAKING COLACE 100 MG CAPSULE 1 CAPSULE NEEDED ORALLY BID NOT-TAKING COUMADIN 5 MG TABLET 1 TABLET ORALLY ONCE A DAY NOT-TAKING ALEVE 220 MG TABLET 2 ORALLY EVERY 12 HRS NEEDED NOT-TAKING IBUPROFEN 800 MG TABLET 1 TABLET WITH FOOD OR MILK NEEDED ORALLY THREE TIMES A DAY NEEDED MEDICATION LIST REVIEWED AND RECONCILED WITH THE PATIENT PAST MEDICAL HISTORY PTSD HYPOTHYROID CHRONIC 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 DEPRESSION BORDERLINE PERSONALITY DISORDER TACHYCARDIA MENIERES DISEASE DVT 06/2018- LEFT LOWER PE 06/2018 FIBROMYALGIA -RHEUMATOLOGY TREMOR ALLERGIES PREDNISON: SEVERE ANGER - ALLERGY PENICILLIN (FOR ALLERGIES USE ONLY): PT UNSURE - ALLERGY TRAZODONE HCL: SEVERE ANGER - ALLERGY SURGICAL HISTORY LASIK BOTH EYES CARDIAC CATHETERIZATION 1998 D&C X2 1998,1999 CERVICAL CERCLAGE X3 BTL 2007 COLPOSCOPY WITH LILIAM 11/18/16 & 01/19/18 LEFT KNEE MENISCUIS REPAIR AND FIXED ANOTHER LIGAMENT TOO - HOSPITALIZED FOR DVT AND 2 DAYS LATER PE JUN 2018 [facility], DR LAMB, BON 3 ON COLP 05/2018 COLONOSCOPY WITH LILIAM 05/29/19 FAMILY HISTORY FATHER: 65 YRS, MS MOTHER: 54 YRS, CHF, DIAGNOSED WITH HYPERTENSION, UNSPECIFIED HEART DISEASE, UNSPECIFIED NONPSYCHOTIC MENTAL DISORDER FOLLOWING ORGANIC BRAIN DAMAGE DAUGHTER: ALIVE 20 YRS 2 SON(S) , 2 DAUGHTER(S) . PT UNAWARE OF CANCER HX IN THE FAMILY. FATHER WAS ADOPTED\\\\\\\\NMOM-CHF,UNDIAGNOSED PSHCH ISSUES\\\\\\\\N2 SONS FROM SMOKE INHALATION\\\\\\\\NDAUGHTER-HEALTHY\\N\\N3 CHILDREN - STILL (GIRL) 10 & 12 DAD FROM BRAIN HEMORRHAGE. SOCIAL HISTORY GENERAL: TOBACCO USE ARE YOU A:NONSMOKER LATEX QUESTIONNAIRE LATEX ALLERGY : HAVE YOU EVER DEVELOPED ANY TYPE OF REACTION AFTER HANDLING LATEX PRODUCTS SUCH RUBBER GLOVES, CONDOMS, DIAPHRAGMS, BALLOONS, SOCKS, OR UNDERWEAR?NO LATEX ALLERGY : HAVE YOU EVER DEVELOPED ANY TYPE OF REACTION DURING OR AFTER DENTAL APPOINTMENT, VAGINAL/RECTAL EXAMINATION, SURGICAL PROCEDURE, OR ANY OTHER EXPOSURE?NO LATEX RISK : HAVE YOU EVER HAD ANY DIFFICULTY BREATHING OR HIVES AFTER EATING OR HANDLING ANY FRUITS, OR VEGETABLES; SUCH KIWI, BANANAS, STONE FRUITS, OR CHESTNUTSNO LATEX RISK : DO YOU HAVE A PREVIOUS PERSONAL HISTORY OF MORE THAN NINE SURGERIES, SPINA BIFIDA, OR REPEATED CATHERIZATIONS? NO LATEX RISK : ARE YOU FREQUENTLY EXPOSED TO LATEX PRODUCTS IN YOUR OCCUPATION?NO DATE ASKED : 09/29/2020 BMI CARE GOAL FOLLOW-UP ABOVE NORMAL BMI FOLLOW-UPWEIGHT MONITORING ALCOHOL SCREENING DID YOU HAVE A DRINK CONTAINING ALCOHOL IN THE PAST YEAR?YES HOW OFTEN DID YOU HAVE SIX OR MORE DRINKS ON ONE OCCASION IN THE PAST YEAR?NEVER (0 POINTS) HOW MANY DRINKS DID YOU HAVE ON A TYPICAL DAY WHEN YOU WERE DRINKING IN THE PAST YEAR?1 OR 2 (0 POINTS) HOW OFTEN DID YOU HAVE A DRINK CONTAINING ALCOHOL IN THE PAST YEAR?MONTHLY OR LESS (1 POINT) POINTS1 INTERPRETATIONNEGATIVE RECREATIONAL DRUG USE DRUG USE?NO CAFFEINE CAFFEINE USE?YES HOW OFTEN AND HOW MUCH? OCCASIONAL COFFEE SEXUAL HX HAD SEX IN THE LAST 12 MONTHS (VAGINAL, ORAL, OR ANAL)?YES WITHMEN ONLY USE PROTECTION?NO LMP: HAVE YOU EVER HAD AN STD?YES OTHER?YES HERPES?NO SYPHILIS?NO GC?NO CHLAMYDIA?NO HIV / HEP-C SCREENING HIV TEST OFFERED TO PATIENT:YES DATE OFFERED:06/08/2019 TEST ACCEPTED:NO REASON:PATIENT DECLINED BROCHURE PROVIDED TO PATIENTNO LANGUAGE LANGUAGES SPOKEN:MALAY LEARNING BARRIERS / SPECIAL NEEDS CHANGE FROM LAST VISIT?NO BARRIERS TO LEARNING?NO HEARING IMPAIRED?NO VISION IMPAIRED?YES :CORRECTIVE LENSES COGNITIVELY IMPAIRED?NO READINESS TO LEARN?YES LEARNING PREFERENCES?NO LEARNING CAPABILITIES PRESENT?YES EMOTIONAL BARRIERS?NO SPECIAL DEVICES?NO REHAB CONSULTANT 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 DIET: REGULAR. EXERCISE: WALKS 5 DAYS A WEEK 2 MILES. MARITAL STATUS: . OTHERS AT HOME: SPOUSE, CHILD. PAIN CLINIC PFS, CLERGY, PUBLIC HEALTH REFERRALS PFS REFERRAL NEEDED?NO CLERGY REFERRAL NEEDED?NO PUBLIC HEALTH REFERRAL NEEDED?NO WAS THE PROVIDER NOTIFIED OF ANY PERTINENT INFO?YES HAS THE PATIENT BEEN EDUCATED REGARDING HIS/HER PLAN OF CARE?YES HAS THE PATIENT BEEN EDUCATED REGARDING PAIN, THE RISK FOR PAIN, THE IMPORTANCE OF EFFECTIVE PAIN MANAGEMENT, AND THE PAIN ASSESSMENT PROCESS?YES ADVANCE DIRECTIVE ADVANCE DIRECTIVE DISCUSSED WITH PATIENT:YES PT REQUESTED HCP FORM AND WAS GIVEN HCP AND DISCUSSED HCP. HOSPITALIZATION/MAJOR DIAGNOSTIC PROCEDURE SURGERY RELATED MENTAL HEALTH 03/2018 S/P KNEE SURGERY- DVT/PULM EMBOLISM 06/2018 REVIEW OF SYSTEMS CONSTITUTIONAL: ANY RECENT FEVER NO . CHILLS NO . WEIGHT CHANGE OF UNKNOWN REASONS NO . GASTROENTEROLOGY: NEW UNEXPLAINABLE CHANGES IN BOWEL CONTROL NO . CONSTIPATION NO . GENITOURINARY: ANY NEW CHANGE IN BLADDER CONTROL? NO . NEUROLOGY: NEW ONSET DIZZINESS OR NEUROLOGICAL CHANGES NOT MENTIONED NO . NEW NUMBNESS OR PAIN PATTERNS NOT MENTIONED AND PERTINENT TO TODAY'S VISIT NO . CARDIOLOGY: NEW CHEST PRESSURE NO . NEW CHEST PAIN NO . RESPIRATORY: UNEXPLAINABLE COUGH NO . NEW SHORTNESS OF BREATH NO . VITAL SIGNS WT 256 LBS, HT 65", BMI 42.60 INDEX, BP 142/81 MM HG, HR 98 /MIN, RR 16 /MIN, TEMP 98.1 F, OXYGEN SAT % 96%, SAFE IN ENV? (Y/N) YEST.MIRIAM WARD. EXAMINATION GENERAL EXAMINATION: GENERALNO ACUTE DISTRESS, WELL NOURISHED AND HYDRATED. PSYCHAPPROPRIATE MOOD AND AFFECT . LUNGS:CLEAR TO AUSCULTATION BILATERALLY, NO WHEEZES, RHONCHI, RALES. HEART:NO MURMURS, REGULAR RATE AND RHYTHM. ASSESSMENTS CERVICAL DISC DISORDER WITH RADICULOPATHY, UNSPECIFIED CERVICAL REGION - M50.10 (PRIMARY) TREATMENT CERVICAL DISC DISORDER WITH RADICULOPATHY, UNSPECIFIED CERVICAL REGION START BUTRANS PATCH WEEKLY, 5 MCG/HR, 1 PATCH TO SKIN, TRANSDERMAL, WEEKLY, 30 DAYS, 4 NOTES: 40-YEAR-OLD FEMALE IN FOR POST CERVICAL EPIDURAL STEROID INJECTION FOLLOW-UP. DISCUSSED MEDICATION SUCH LYRICA AND GABAPENTIN WITH PATIENT AND SHE ADMITS TO BEING ON THESE IN THE PAST. SHE STATES THE GABAPENTIN WAS NOT HELPFUL AND THE LYRICA CAUSED SWELLING IN HER LEGS. GIVEN REACTIONS TO THESE MEDICATIONS IN THE PAST RECOMMENDED USE OF BUTRANS PATCH WITH FOLLOW-UP IN 2 MONTHS. SHE DID MENTION ONSET OF NEW BACK PAIN THAT HAS BEEN PRESENT FOR THE PAST 3 WEEKS. SHE WAS ENCOURAGED TO DISCUSS THIS WITH HER PRIMARY CARE PROVIDER. PATIENT HAS EXPRESSED HER STANDING OF AND WAS IN AGREEMENT WITH TREATMENT PLAN. GIVEN TIME TO ASK QUESTIONS AND EXPRESS CONCERNS. , ISTOP REGISTRY REVIEWED AND DEMONSTRATES COMPLLIANCE. (REF # [id number] ) , RISKS OF NARCOTIC/OPIOD MEDICATIONS INCLUDES BUT IS NOT LIMITED TO RISK OF DEPENDANCE/DEVELOPMENT OF ADDICTION, MOOD DISTURBANCE AND DEPRESSION, OSTEOPOROSIS, HORMONAL AND LABIDAL CHANGES, RESPIRATORY DEPRESSION AND . PATIENT IS ADVISED NOT TO DRIVE OR DRINK ALCOHOL WHILE ON THESE MEDICATIONS WE ARE TRYING TO LIMIT TOTAL MORPHINE MILLEQUIVALENTS, NUMBER OF PRESCRIPTIONS ISSUED AND C II MEDICATIONS PER CLINICAL GUIDELINES AND BUTRANS WOULD BE INDICATED TO MEET THIS CRITERIA. PROCEDURE CODES FA211 ESTABILISHED PATIENT [facility] FACILITY CHARGE DISPOSITION & COMMUNICATION FOLLOW UP 2 MONTHS (REASON: NEW MEDICATION, NECK PAIN) ELECTRONICALLY SIGNED BY BONILLA MITTAL ON 10/02/2020 AT 09:25 AM EST DISCLAIMER : THIS IS A VISIT SUMMARY EXTRACTED FROM THE [employer] CHART. IT IS NOT A COPY OF THE [employer] PROGRESS NOTE. OLIVIA
== END ==
LOC: M PAIN 09:45
PROVIDERS: ATTEND Family Medicine
DX: M50.10 Cervical disc disorder with radiculopathy, unspecified cervical region (principal); F43.10 Post-traumatic stress disorder, unspecified; E03.9 Hypothyroidism, unspecified; G43.719 Chronic migraine without aura, intractable, without status migrainosus; F32.9 Major depressive disorder, single episode, unspecified; F60.3 Borderline personality disorder; R00.0 Tachycardia, unspecified; H81.09 Meniere's disease, unspecified ear; M79.7 Fibromyalgia; Z86.711 Personal history of pulmonary embolism; Z86.718 Personal history of other venous thrombosis and embolism; R25.1 Tremor, unspecified; Z79.01 Long term (current) use of anticoagulants; Z79.899 Other long term (current) drug therapy; Z88.0 Allergy status to penicillin; Z88.8 Allergy status to other drugs, medicaments and biological substances

== ENCOUNTER → 2020-10-26 | Outpatient (CLI) | payer OTHER ==
[~2020-10-26] MED LIST changes: +QUET50TA3 PO; -QUET5TAB PO
--- NOTE | 2020-10-27 01:31 | REP ---
INDICATION: LOW BACK PAIN COMPARISON: None. TECHNIQUE: AP, lateral, bilateral oblique, and coned-down views of the lumbar spine. FINDINGS: Alignment and lordosis maintained. Vertebral bodies are intact. Disc spaces are relatively normal/age-appropriate. No acute fracture/compression injury or subluxation. No obvious spondylolysis or spondylolisthesis.. IMPRESSION: Normal Lumbosacral Spine series. <Electronically signed by Javan Muse > 10/27/20 [id number]
== END ==
LOC: M RAD 11:54
PROVIDERS: ATTEND Family Medicine Addiction Medicine
DX: M54.5 Low back pain (principal)

== ENCOUNTER → 2020-10-26 | Outpatient (REF) | payer OTHER ==
[2020-10-26 19:47] LABS: ALBUMIN 3.7 GM/DL (3.2-5.2); ALT/SGPT 18 U/L (12-78); BILIRUBIN,TOTAL 0.3 MG/DL (0.2-1.0); BLOOD UREA NITROGEN 15 MG/DL (7-18); CALCIUM LEVEL 9.3 MG/DL (8.5-10.1); CARBON DIOXIDE LEVEL 29 MEQ/L (21-32); CHLORIDE LEVEL 106 MEQ/L (98-107); CHOLESTEROL LEVEL 195 MG/DL (<200); CREATININE FOR GFR 0.94 MG/DL (0.55-1.30); GLOMERULAR FILTRATION RATE > 60.0 (>60); GLUCOSE, FASTING 102 MG/DL (70-100); HDL CHOLESTEROL 39 MG/DL (>40); HEPATITIS C VIRUS ABY INDEX 0.1 INDEX (<0.8); HIV 1&2 SCREEN CENTAUR NEGATIVE (NEGATIVE); LDL CHOLESTEROL 113 MG/DL (<100); NON-HDL-C 156 MG/DL; POTASSIUM SERUM 3.9 MEQ/L (3.5-5.1); SODIUM LEVEL 142 MEQ/L (136-145); TRIGLYCERIDES LEVEL 216 MG/DL (<150)
== END ==
LOC: M LAB REF 16:16
PROVIDERS: ATTEND Family Medicine Addiction Medicine
DX: M54.5 Low back pain (principal); I10 Essential (primary) hypertension; E03.9 Hypothyroidism, unspecified; Z11.3 Encounter for screening for infections with a predominantly sexual mode of transmission

== ENCOUNTER → 2020-11-16 | Outpatient (REF) | payer MEDICARE, OTHER | LOC: M SFHCWAGY 13:12 | PROVIDERS: ATTEND Nurse Practitioner Women's Health | DX: Z12.4 Encounter for screening for malignant neoplasm of cervix (principal); R87.612 Low grade squamous intraepithelial lesion on cytologic smear of cervix (LGSIL); R87.810 Cervical high risk human papillomavirus (HPV) DNA test positive | CPT/HCPCS: 87624; G0123 ==

== ENCOUNTER → 2020-11-27 | Outpatient (CLI) | payer MEDICARE, OTHER ==
--- NOTE | 2020-11-29 06:23 | ECWPNPC ---
PATIENT NAME: LILIAM JACKSON : 1980 GENDER: FEMALE VISIT DATE: 11/27/2020 DISCHARGE DATE: 11/27/20 1122 VISIT LOCKED DATE TIME: PHYSICIAN: CARY HARO RESOURCE: CARY HARO REASON FOR APPOINTMENT 1. NEW MEDICATION, NECK PAIN HISTORY OF PRESENT ILLNESS GENERAL: 40-YEAR-OLD FEMALE IN FOR CHRONIC PAIN FOLLOW-UP. SHE RATES HER PAIN CURRENTLY AT AN 8 OUT OF 10 AND DESCRIBES IT INTERMITTENT, SHARP, STABBING, AND THROBBING. SHE WAS STARTED ON NORCO RECENTLY AND ADMITS TODAY THAT THIS HAS BEEN BENEFICIAL. FALL RISK SCREENING: SCREENING : NO FALLS REPORTED IN THE LAST YEAR , : NO FALLS REPORTED IN THE LAST YEAR. PAIN SCREENING: PATIENT HAS A COMPLAINT OF ACUTE OR CHRONIC PAIN :YES LOCATION OF PAIN:NECK ARMS INTENSITY OF PAIN (SCALE OF 1 TO 10):8 WHAT DOES YOUR PAIN FEEL LIKE:INTERMITTENT, SHARP, STABBING, THROBBING DURATION:INTERMITTENT, AWAKENS FROM SLEEP PAIN IS INCREASED BY:ACTIVITIES, PROLONGED STANDING SITTING PAIN IS DECREASED BY:USE OF PAIN MEDICATIONS HYRDROCODONE HELPS SLIGHTLY NURSING NOTE: - -. PAIN CENTER INTAKE QUESTIONS: DO YOU HAVE A HISTORY OF MRSA? :NO DO YOU TAKE A BLOOD THINNERS? :YES ELOQUIS DO YOU HAVE ANY BLEEDING DISORDERS? :NO ANY NEW NUMBNESS OR WEAKNESS IN YOUR LEGS OR ARMS? :NO ANY PACEMAKER,DEFIBRILLATOR, OR DORSAL COLUMN STIMULATOR? :NO DO YOU HAVE ANY RASHES OR OPEN SORES? :NO ARE YOU ALLERGIC TO IV DYE? :NO ARE YOU DIABETIC? :NO ANY NEW PROBLEMS WITH YOUR MEDICATIONS? :NO HAVE YOU RECEIVED A VACCINE IN THE PAST 30 DAYS? :YES IF SO WHAT VACCINE AND WHEN? FLU VACCINATION 10/26/2020 DO YOU PLAN TO RECEIVE A VACCINE IN THE NEXT 21 DAYS? :NO DO YOU NEED ANY PRESCRIPTION? :NO DO YOU TAKE ANY IMMUNOSUPPRESSIVE MEDICATIONS? :NO DO YOU HAVE ANY KIDNEY OR LIVER DISEASE? :NO IS THERE A CHANCE YOU COULD BE ? :NO ARE YOU BREAST FEEDING? :NO CURRENT MEDICATIONS TAKING ALBUTEROL SULFATE HFA 108 (90 BASE) MCG/ACT AEROSOL SOLUTION 2 PUFFS NEEDED INHALATION EVERY 4 HRS TAKING LAMOTRIGINE 100 MG TABLET 1 TABLET ORALLY BID TAKING LEVOTHYROXINE SODIUM 75 MCG TABLET 1 TABLET ORALLY ONCE A DAY TAKING LOSARTAN POTASSIUM 50 MG TABLET 1 TABLET ORALLY ONCE A DAY TAKING VITAMIN D 46843 U TABLET 1 TABLET ORALLY ONCE A WEEK TAKING SEROQUEL 50 MG TABLET 1 TABLET ORALLY ONCE A DAY TAKING BREO ELLIPTA 100-25 MCG/INH AEROSOL POWDER BREATH ACTIVATED 1 PUFF INHALATION ONCE A DAY TAKING SYMBICORT 160-4.5 MCG/ACT AEROSOL 2 PUFFS INHALATION TWICE A DAY TAKING ZYRTEC ALLERGY 10 MG TABLET 1 TABLET ORALLY ONCE A DAY TAKING TRIAMTERENE-HCTZ 37.5-25 MG TABLET 1 TAB ORALLY DAILY TAKING HYDROXYZINE HCL 50 MG TABLET 1 TAB ORALLY DAILY PRN TAKING ARIPIPRAZOLE 5 MG TABLET 1 TAB ORALLY DAILY TAKING FLUOXETINE 20 MGS 1 CAP ORALLY DAILY TAKING ACETAMINOPHEN 500 MG TABLET 1-2 ORALLY Q8H PRN TAKING NYSTATIN 681061 UNIT/GM CREAM 1 APPLICATION TO AFFECTED AREA EXTERNALLY TO AFFECTED AREA BENEATH BREAST TWICE A DAY TAKING FIBER-LAX 625 MG TABLET 2 TABLETS NEEDED ORALLY EVERY OTHER DAY TAKING ELIQUIS 5 MG TABLET DIRECTED ORALLY BID TAKING HYDROCODONE-ACETAMINOPHEN 5-325 MG TABLET 1 TABLET NEEDED ORALLY Q12H PRN MDD2 TAKING TIZANIDINE HCL 2 MG TABLET 1 TABLET NEEDED ORALLY THREE TIMES A DAY NOT-TAKING NORCO 5-325 MG TABLET 1 TABLET NEEDED ORALLY EVERY 12 HRS PRN PAIN, NOTES: DOUBLE ENTRY NOT-TAKING BUTRANS 5 MCG/HR PATCH WEEKLY 1 PATCH TO SKIN TRANSDERMAL WEEKLY NOT-TAKING CHLORTHALIDONE 12.5 12.5MG TABLET 1 TABLET ORAL ONCE DAILY NOT-TAKING COLACE 100 MG CAPSULE 1 CAPSULE NEEDED ORALLY BID NOT-TAKING COUMADIN 5 MG TABLET 1 TABLET ORALLY ONCE A DAY NOT-TAKING ALEVE 220 MG TABLET 2 ORALLY EVERY 12 HRS NEEDED NOT-TAKING IBUPROFEN 800 MG TABLET 1 TABLET WITH FOOD OR MILK NEEDED ORALLY THREE TIMES A DAY NEEDED MEDICATION LIST REVIEWED AND RECONCILED WITH THE PATIENT PAST MEDICAL HISTORY PTSD HYPOTHYROID CHRONIC 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 DEPRESSION BORDERLINE PERSONALITY DISORDER TACHYCARDIA MENIERES DISEASE DVT 06/2018- LEFT LOWER PE 06/2018 FIBROMYALGIA -RHEUMATOLOGY TREMOR TENDONITIS ALLERGIES PREDNISON: SEVERE ANGER - ALLERGY PENICILLIN (FOR ALLERGIES USE ONLY): PT UNSURE - ALLERGY TRAZODONE HCL: SEVERE ANGER - ALLERGY SOCIAL HISTORY GENERAL: TOBACCO USE ARE YOU A:NONSMOKER LATEX QUESTIONNAIRE LATEX ALLERGY : HAVE YOU EVER DEVELOPED ANY TYPE OF REACTION AFTER HANDLING LATEX PRODUCTS SUCH RUBBER GLOVES, CONDOMS, DIAPHRAGMS, BALLOONS, SOCKS, OR UNDERWEAR?NO LATEX ALLERGY : HAVE YOU EVER DEVELOPED ANY TYPE OF REACTION DURING OR AFTER DENTAL APPOINTMENT, VAGINAL/RECTAL EXAMINATION, SURGICAL PROCEDURE, OR ANY OTHER EXPOSURE?NO LATEX RISK : HAVE YOU EVER HAD ANY DIFFICULTY BREATHING OR HIVES AFTER EATING OR HANDLING ANY FRUITS, OR VEGETABLES; SUCH KIWI, BANANAS, STONE FRUITS, OR CHESTNUTSNO LATEX RISK : DO YOU HAVE A PREVIOUS PERSONAL HISTORY OF MORE THAN NINE SURGERIES, SPINA BIFIDA, OR REPEATED CATHERIZATIONS? NO LATEX RISK : ARE YOU FREQUENTLY EXPOSED TO LATEX PRODUCTS IN YOUR OCCUPATION?NO DATE ASKED : 11/27/2020 ALCOHOL USE: OCCASIONAL. BMI CARE GOAL FOLLOW-UP ABOVE NORMAL BMI FOLLOW-UPWEIGHT MONITORING ALCOHOL SCREENING DID YOU HAVE A DRINK CONTAINING ALCOHOL IN THE PAST YEAR?YES HOW OFTEN DID YOU HAVE SIX OR MORE DRINKS ON ONE OCCASION IN THE PAST YEAR?NEVER (0 POINTS) HOW MANY DRINKS DID YOU HAVE ON A TYPICAL DAY WHEN YOU WERE DRINKING IN THE PAST YEAR?1 OR 2 (0 POINTS) HOW OFTEN DID YOU HAVE A DRINK CONTAINING ALCOHOL IN THE PAST YEAR?MONTHLY OR LESS (1 POINT) POINTS1 INTERPRETATIONNEGATIVE RECREATIONAL DRUG USE DRUG USE?NO CAFFEINE CAFFEINE USE?YES HOW OFTEN AND HOW MUCH? OCCASIONAL COFFEE SEXUAL HX HAD SEX IN THE LAST 12 MONTHS (VAGINAL, ORAL, OR ANAL)?YES WITHMEN ONLY USE PROTECTION?NO LMP: HAVE YOU EVER HAD AN STD?YES OTHER?YES HERPES?NO SYPHILIS?NO GC?NO CHLAMYDIA?NO HIV / HEP-C SCREENING HIV TEST OFFERED TO PATIENT:YES DATE OFFERED:06/08/2019 TEST ACCEPTED:NO REASON:PATIENT DECLINED BROCHURE PROVIDED TO PATIENTNO LANGUAGE LANGUAGES SPOKEN:WOLOF LEARNING BARRIERS / SPECIAL NEEDS CHANGE FROM LAST VISIT?NO BARRIERS TO LEARNING?NO HEARING IMPAIRED?NO VISION IMPAIRED?YES :CORRECTIVE LENSES COGNITIVELY IMPAIRED?NO READINESS TO LEARN?YES LEARNING PREFERENCES?NO LEARNING CAPABILITIES PRESENT?YES EMOTIONAL BARRIERS?NO SPECIAL DEVICES?NO RAIL WALKER 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 DIET: REGULAR. EXERCISE: WALKS 5 DAYS A WEEK 2 MILES. MARITAL STATUS: . OTHERS AT HOME: SPOUSE, CHILD GRAND CHILD. - PFS REFERRAL NEEDED?NO CLERGY REFERRAL NEEDED?NO PUBLIC HEALTH REFERRAL NEEDED?NO WAS THE PROVIDER NOTIFIED OF ANY PERTINENT INFO?YES HAS THE PATIENT BEEN EDUCATED REGARDING HIS/HER PLAN OF CARE?YES HAS THE PATIENT BEEN EDUCATED REGARDING PAIN, THE RISK FOR PAIN, THE IMPORTANCE OF EFFECTIVE PAIN MANAGEMENT, AND THE PAIN ASSESSMENT PROCESS?YES ADVANCE DIRECTIVE ADVANCE DIRECTIVE DISCUSSED WITH PATIENT:YES PT REQUESTED HCP FORM AND WAS GIVEN HCP AND DISCUSSED HCP. REVIEW OF SYSTEMS CONSTITUTIONAL: ANY RECENT FEVER NO . CHILLS NO . WEIGHT CHANGE OF UNKNOWN REASONS NO . GASTROENTEROLOGY: NEW UNEXPLAINABLE CHANGES IN BOWEL CONTROL NO . CONSTIPATION NO . GENITOURINARY: ANY NEW CHANGE IN BLADDER CONTROL? NO . NEUROLOGY: NEW ONSET DIZZINESS OR NEUROLOGICAL CHANGES NOT MENTIONED NO . NEW NUMBNESS OR PAIN PATTERNS NOT MENTIONED AND PERTINENT TO TODAY'S VISIT NO . CARDIOLOGY: NEW CHEST PRESSURE NO . PATIENT DENIES NO . RESPIRATORY: UNEXPLAINABLE COUGH NO . NEW SHORTNESS OF BREATH NO . VITAL SIGNS WT 258.2 LBS, HT 65", BMI 42.96 INDEX, BP 138/87 MM HG, HR 77 /MIN, RR 18 /MIN, TEMP 96.2 F, OXYGEN SAT % 98%, SAFE IN ENV? (Y/N) YES, NA INITIALS CA 10:55, REVIEWED BY: ROB ESCOBAR MA. EXAMINATION GENERAL EXAMINATION: GENERALNO ACUTE DISTRESS, WELL NOURISHED AND HYDRATED. PSYCHAPPROPRIATE MOOD AND AFFECT . LUNGS:CLEAR TO AUSCULTATION BILATERALLY, NO WHEEZES, RHONCHI, RALES. HEART:NO MURMURS, REGULAR RATE AND RHYTHM. ASSESSMENTS CERVICAL DISC DISORDER WITH RADICULOPATHY, UNSPECIFIED CERVICAL REGION - M50.10 (PRIMARY) TREATMENT CERVICAL DISC DISORDER WITH RADICULOPATHY, UNSPECIFIED CERVICAL REGION NOTES: 40-YEAR-OLD FEMALE IN FOR CHRONIC PAIN FOLLOW-UP. GIVEN PRESENTING SYMPTOMS RECOMMEND CONTINUATION OF CURRENT MEDICATION REGIMEN WITH FOLLOW-UP IN 3 MONTHS. PATIENT HAS EXPRESSED UNDERSTANDING OF AND WAS IN AGREEMENT WITH TREATMENT PLAN. GIVEN TIME TO ASK QUESTIONS AND EXPRESS CONCERNS. , ISTOP REGISTRY REVIEWED AND DEMONSTRATES COMPLLIANCE. (REF # [id number] ) BRINGS IN MEDICATIONS WHICH IS APPROPRIATE FOR WHAT WAS DISPENSED. RECENT URINE TOXICOLOGY REVIEWED. NO UNAUTHORIZED MEDICATIONS. NO ILLICIT SUBSTANCES AND PRESCRIBED MEDICATIONS WERE PRESENT. OTHERS REFILL HYDROCODONE-ACETAMINOPHEN TABLET, 5-325 MG, 1 TABLET NEEDED, ORALLY, Q12H PRN MDD2, 30 DAYS, 60, REFILLS 0 PROCEDURE CODES FA211 ESTABILISHED PATIENT [facility] CHARGE DISPOSITION & COMMUNICATION FOLLOW UP 3 MONTHS (REASON: BACK PAIN) ELECTRONICALLY SIGNED BY BONILLA MITTAL ON 11/28/2020 AT 12:43 PM EDT DISCLAIMER : THIS IS A VISIT SUMMARY EXTRACTED FROM THE [employer] CHART. IT IS NOT A COPY OF THE [employer] PROGRESS NOTE. OLIVIA
== END ==
LOC: M PAIN 11:00
PROVIDERS: ATTEND Family Medicine
DX: M50.10 Cervical disc disorder with radiculopathy, unspecified cervical region (principal); F43.10 Post-traumatic stress disorder, unspecified; E03.9 Hypothyroidism, unspecified; G43.709 Chronic migraine without aura, not intractable, without status migrainosus; F32.9 Major depressive disorder, single episode, unspecified; F60.3 Borderline personality disorder; M79.7 Fibromyalgia; Z79.891 Long term (current) use of opiate analgesic; Z79.899 Other long term (current) drug therapy; Z79.01 Long term (current) use of anticoagulants; Z86.718 Personal history of other venous thrombosis and embolism; Z88.0 Allergy status to penicillin; Z88.8 Allergy status to other drugs, medicaments and biological substances

== ENCOUNTER 2021-01-02 17:49 | Emergency (ER) | payer OTHER ==
[~2021-01-02] VITALS: Ht 165.1 cm; Wt 122.6 kg
[2021-01-02] MEDS ORDERED: HYDR-3713 (17:57)
[2021-01-02] MEDS ORDERED: ELIQ5TAB (17:57)
[2021-01-02] MEDS ORDERED: tiZANidine 4 MG TAB PO ONE (22:45)
[2021-01-02] MEDS ORDERED: LIDOCAINE 5% (LIDODERM) PATCH TD ONE (22:45)
[2021-01-02] MEDS ORDERED: PERCOCET 5MG/325MG TAB PO ONE (22:45)
[2021-01-02] MEDS ORDERED: LOSARTAN 50MG TABLET PO ONE (22:55)
[2021-01-02] MEDS ORDERED: KETOROLAC 60MG 2ML VIAL IM ONE (23:25)
--- NOTE | 2021-01-02 23:46 | REPVR ---
PROCEDURE INFORMATION: Exam: CT Thoracic Spine Without Contrast Exam date and time: 01/02/2021 10:42 PM Age: 40 years old Clinical indication: Pain in thoracic spine; Additional info: Back pain TECHNIQUE: Imaging protocol: Computed tomography images of the thoracic spine without contrast. Radiation optimization: All CT scans at this facility use at least one of these dose optimization techniques: automated exposure control; mA and/or kV adjustment per patient size (includes targeted exams where dose is matched to clinical indication); or iterative reconstruction. COMPARISON: 1. XA FLUORO GUIDE SPINE INJECTION 2020-07-31 15:51 2. MRI-Spine,Thoracic without con 2014-04-05 14:19 FINDINGS: Vertebrae: Mild dextroconvex thoracic curvature. Maintained vertebral body heights. Discs/Spinal canal/Neural foramina: No significant disc protrusion. No severe spinal canal stenosis. No significant neural foraminal narrowing. Soft tissues: Unremarkable. IMPRESSION: No acute abnormality. Electronically signed by: Mikel Ch On 01/02/2021 23:45:57 PM
[2021-01-03 00:15] VITALS: BP 115/76
[2021-01-03] MEDS ORDERED: LIDO5DIS41 TOP (00:31)
[2021-01-03] MEDS ORDERED: **NOTE PATIENT COMMENT** MISC XX SCH (21:00)
== END 2021-01-03 00:44 | disposition home or self-care (01) ==
LOC: M ED 17:49
DX: M54.6 Pain in thoracic spine (principal); I25.10 Atherosclerotic heart disease of native coronary artery without angina pectoris; I10 Essential (primary) hypertension; M54.30 Sciatica, unspecified side; E03.9 Hypothyroidism, unspecified; G43.909 Migraine, unspecified, not intractable, without status migrainosus; Z86.718 Personal history of other venous thrombosis and embolism; J45.909 Unspecified asthma, uncomplicated; Z87.01 Personal history of pneumonia (recurrent); H81.09 Meniere's disease, unspecified ear; Z98.61 Coronary angioplasty status; Z87.820 Personal history of traumatic brain injury; Z79.899 Other long term (current) drug therapy; Z88.0 Allergy status to penicillin; Z88.8 Allergy status to other drugs, medicaments and biological substances

== ENCOUNTER 2021-01-06 14:43 | Emergency (ER) | payer OTHER ==
[~2021-01-06] VITALS: Ht 165.1 cm; Wt 77.3 kg
[~2021-01-06 14:43] MED LIST changes: +ELIQ5TAB; +HYDR-3713; +LIDO5DIS41 TOP
[2021-01-06] MEDS ORDERED: IPRATROPIUM HFA INHALER 12.9 GRAMS (ATROVENT HFA) INH ONE (15:15)
[2021-01-06] MEDS ORDERED: methylPREDNISolone 125MG 2ML VIAL IV ONE (15:15)
[2021-01-06] MEDS ORDERED: ALBUTEROL 90 MCG/ACT 8GM HFA INHALER INH ONE (15:15)
[2021-01-06 15:46] LABS: BASO % 0.4 % (0.0-1.0); EOS # 0.1 10^3/uL (0.0-0.5); EOS % 1.2 % (0.0-3.0); HEMATOCRIT 31.9 % (36.0-47.0); HEMOGLOBIN 9.9 g/dl (12.0-15.5); LYMPH # 1.5 10^3/uL (1.5-5.0); LYMPH % 19.9 % (24.0-44.0); MEAN CORPUSCULAR HEMOGLOBIN 27.7 pg (27.0-33.0); MEAN CORPUSCULAR VOLUME 89.4 fl (80.0-96.0); MONO # 0.6 10^3/uL (0.0-0.8); MONO % 7.7 % (2.0-8.0); NEUTROPHILS # 5.3 10^3/uL (1.5-8.5); NEUTROPHILS % 70.5 % (36.0-66.0); PLATELET COUNT, AUTOMATED 247 10^3/uL (150-450); RED BLOOD COUNT 3.57 10^6/uL (4.00-5.40); WHITE BLOOD COUNT 7.4 10^3/uL (4.0-10.0)
--- NOTE | 2021-01-06 15:57 | REP ---
INDICATION: DYSPNEA/COUGH COMPARISON: 10/04/2014 TECHNIQUE: Portable AP view of the chest FINDINGS: The mediastinum and cardiac silhouette are stable and within normal limits for portable technique. The lung ahmadi are clear without acute consolidation, effusion, or pneumothorax. Skeletal structures are intact. IMPRESSION: No acute cardiopulmonary process appreciated. <Electronically signed by Javan Muse > 01/06/21 [id number]
[2021-01-06 16:11] LABS: ALBUMIN 3.3 GM/DL (3.2-5.2); ALT/SGPT 25 U/L (12-78); BILIRUBIN,DIRECT 0.2 MG/DL (0.0-0.2); BILIRUBIN,TOTAL 0.5 MG/DL (0.2-1.0); BLOOD UREA NITROGEN 9 MG/DL (7-18); CALCIUM LEVEL 8.1 MG/DL (8.5-10.1); CARBON DIOXIDE LEVEL 26 MEQ/L (21-32); CHLORIDE LEVEL 108 MEQ/L (98-107); CREATININE FOR GFR 0.75 MG/DL (0.55-1.30); GLOMERULAR FILTRATION RATE > 60.0 (>60); GLUCOSE, FASTING 84 MG/DL (70-100); POTASSIUM SERUM 3.6 MEQ/L (3.5-5.1); SODIUM LEVEL 141 MEQ/L (136-145); TOTAL PROTEIN 6.5 GM/DL (6.4-8.2)
[2021-01-06 16:28] LABS: INR 1.31; PROTHROMBIN TIME 16.6 SECONDS (12.5-14.3)
[2021-01-06 16:29] LABS: PARTIAL THROMBOPLASTIN TIME 38.6 SECONDS (24.2-38.5)
[2021-01-06] MEDS ORDERED: MEDR4PAK PO (17:59)
[2021-01-06 19:10] VITALS: BP 171/118
--- NOTE | 2021-01-07 11:47 | ECGEPIP ---
[facility] - ED Test Date: 2021-01-06 Pat Name: LILIAM JACKSON Department: Room: - Gender: Female Bilingual Spanish Inbound Sales: ed : 1980 Requested By: KRISTINA ROSAS PA-C. Order Number: [id number] Reading MD: Mendy Canas Measurements Intervals [place] Rate: 69 P: 10 OR: 182 QRS: -25 QRSD: 92 T: -12 QT: 440 QTc: 471 Interpretive Statements Normal sinus rhythm Minimal voltage criteria for LVH, may be normal variant ( [place] product ) Nonspecific T wave abnormality similar 07/03/18 Electronically Signed on 01-07-2021 11:46:59 EDT by Mendy Canas
== END 2021-01-06 19:24 | disposition home or self-care (01) ==
LOC: EDBD 14:43 → M ED 14:43
DX: J45.901 Unspecified asthma with (acute) exacerbation (principal); Z86.711 Personal history of pulmonary embolism; Z79.01 Long term (current) use of anticoagulants; Z79.899 Other long term (current) drug therapy; Z88.0 Allergy status to penicillin; Z88.8 Allergy status to other drugs, medicaments and biological substances; Z88.5 Allergy status to narcotic agent
CPT/HCPCS: 71045; 80048; 80076; 84484; 85025; 85610; 85730; 87798; 93005; 93041; 94640; 94664; 94760; 96374; 99285; J2930

== ENCOUNTER → 2021-02-01 | Outpatient (CLI) | payer OTHER ==
[~2021-02-01] MED LIST changes: +GABA-283 PO; -GABA-845 PO; +MEDR4PAK PO
--- NOTE | 2021-02-01 15:52 | REP ---
INDICATION: LEFT LEG PAIN RO DVT. COMPARISON: None. TECHNIQUE: Multiple ultrasonographic images of the deep venous structures of the left thigh were obtained from the common femoral vein to the popliteal vein along with Doppler interrogation and color flow Doppler images. FINDINGS: There is no abnormal echogenic material seen within any of the visualized deep venous structures that would suggest acute thrombosis. Coaptation is unremarkable throughout. Doppler interrogation shows an expected response to respiratory variability and augmentation. The color flow images show what appears to be a normal vascular pattern throughout. IMPRESSION: There is no ultrasonographic evidence of deep venous thrombosis involving any of the visualized deep venous structures of the left thigh, as described above. <Electronically signed by Aki Wells > 02/01/21 [id number]
== END ==
LOC: M RAD 15:23
PROVIDERS: ATTEND Orthopaedic Surgery
DX: M25.562 Pain in left knee (principal)

== ENCOUNTER → 2021-02-11 | Outpatient (CLI) | payer OTHER ==
--- NOTE | 2021-02-11 15:22 | REPVR ---
PROCEDURE INFORMATION: Exam: MR Cervical Spine Without Contrast Exam date and time: 02/11/2021 1:56 PM Age: 40 years old Clinical indication: Condition or disease; Disc degeneration; Vertebra area not specified TECHNIQUE: Imaging protocol: Multiplanar magnetic resonance images of the cervical spine without contrast. COMPARISON: MRI-Spine,Cervical without con 05/19/2020 1:37 PM FINDINGS: Study is mildly degraded by patient motion artifact. There is reversal of the normal cervical lordosis, similar to the prior study. No compression fractures. Normal marrow signal. Mild degenerative disc disease from C3 through C7. Within constraints of motion artifact, the cervical spinal cord has normal signal intensity. At C2-C3, there is no significant spinal canal or neural foraminal narrowing. At C3-C4, there is a small posterior disc osteophyte complex with mild spinal canal and mild left neural foraminal narrowing. At C4-C5, a left paracentral posterior disc osteophyte complex is again present with remodeling of the spinal cord and moderate spinal canal narrowing. Mild left neural foraminal narrowing. At C5-C6, a left paracentral posterior disc osteophyte complex is again present with remodeling of the the spinal cord and moderate spinal canal narrowing. Mild left neural foraminal narrowing. At C6-C7, posterior disc osteophyte complex is again present, with moderate spinal canal narrowing. Mild left neural foraminal narrowing. IMPRESSION: Multilevel cervical spine degenerative change overall similar to the prior MRI, with up to moderate spinal canal narrowing from C4-C5 through C5-C6. Electronically signed by: Gerardo Schwartz On 02/11/2021 15:21:33 PM
== END ==
LOC: M RAD 13:05
PROVIDERS: ATTEND Orthopaedic Surgery
DX: M50.30 Other cervical disc degeneration, unspecified cervical region (principal)

== ENCOUNTER → 2021-04-10 | Outpatient (CLI) | payer MEDICARE, OTHER ==
--- NOTE | 2021-04-11 23:25 | ECWPNPC ---
PATIENT NAME: LILIAM JACKSON : 1980 GENDER: FEMALE VISIT DATE: 04/10/2021 DISCHARGE DATE: 04/10/21 1413 VISIT LOCKED DATE TIME: PHYSICIAN: CARY HARO RESOURCE: CARY HARO REASON FOR APPOINTMENT 1. NECK HISTORY OF PRESENT ILLNESS GENERAL: HPI 41-YEAR-OLD FEMALE IN FOR CHRONIC PAIN FOLLOW-UP. PATIENT FEELS HER MEDICATIONS ARE HELPFUL AND DENIES MED SIDE EFFECTS AT THIS TIME. PATIENT DOES ADMIT THAT SHE HAS STOPPED TAKING THE HYDROCODONE SHE IS BEING SEEN BY ORTHOPEDICS AND THEY WILL POTENTIALLY BE PERFORMING CERVICAL SPINE SURGERY.. -. FALL RISK SCREENING: SCREENING : NO FALLS REPORTED IN THE LAST YEAR. PAIN SCREENING: PATIENT HAS A COMPLAINT OF ACUTE OR CHRONIC PAIN :YES LOCATION OF PAIN:NECK INTENSITY OF PAIN (SCALE OF 1 TO 10):8 WHAT DOES YOUR PAIN FEEL LIKE:CONTINOUS, SHARP, STABBING, THROBBING DURATION:CONTINOUS, CONSTANT, AWAKENS FROM SLEEP PAIN IS INCREASED BY:ACTIVITIES, PROLONGED STANDING PAIN IS DECREASED BY:USE OF PAIN MEDICATIONS, SITTING NURSING NOTE: -. PAIN CENTER INTAKE QUESTIONS: DO YOU HAVE A HISTORY OF MRSA? :NO DO YOU TAKE A BLOOD THINNERS? :NO DO YOU HAVE ANY BLEEDING DISORDERS? :NO ANY NEW NUMBNESS OR WEAKNESS IN YOUR LEGS OR ARMS? :NO ANY PACEMAKER,DEFIBRILLATOR, OR DORSAL COLUMN STIMULATOR? :NO DO YOU HAVE ANY RASHES OR OPEN SORES? :NO ARE YOU ALLERGIC TO IV DYE? :NO ARE YOU DIABETIC? :NO ANY NEW PROBLEMS WITH YOUR MEDICATIONS? :NO HAVE YOU RECEIVED A VACCINE IN THE PAST 30 DAYS? :NO FLU VACCINATION 10/26/2020 DO YOU PLAN TO RECEIVE A VACCINE IN THE NEXT 21 DAYS? :NO DO YOU NEED ANY PRESCRIPTION? :YES TIZANIDINE DO YOU TAKE ANY IMMUNOSUPPRESSIVE MEDICATIONS? :NO DO YOU HAVE ANY KIDNEY OR LIVER DISEASE? :NO IS THERE A CHANCE YOU COULD BE ? :NO ARE YOU BREAST FEEDING? :NO CURRENT MEDICATIONS TAKING ALBUTEROL SULFATE HFA 108 (90 BASE) MCG/ACT AEROSOL SOLUTION 2 PUFFS NEEDED INHALATION EVERY 4 HRS TAKING LAMOTRIGINE 100 MG TABLET 1 TABLET ORALLY BID TAKING LEVOTHYROXINE SODIUM 88 MCG TABLET 1 TABLET ORALLY ONCE A DAY TAKING LOSARTAN POTASSIUM 50 MG TABLET 1 TABLET ORALLY ONCE A DAY TAKING VITAMIN D 32266 U TABLET 1 TABLET ORALLY ONCE A WEEK TAKING SEROQUEL 50 MG TABLET 1 TABLET ORALLY ONCE A DAY TAKING BREO ELLIPTA 100-25 MCG/INH AEROSOL POWDER BREATH ACTIVATED 1 PUFF INHALATION ONCE A DAY TAKING SYMBICORT 160-4.5 MCG/ACT AEROSOL 2 PUFFS INHALATION TWICE A DAY TAKING ZYRTEC ALLERGY 10 MG TABLET 1 TABLET ORALLY ONCE A DAY TAKING TRIAMTERENE-HCTZ 37.5-25 MG TABLET 1 TAB ORALLY DAILY TAKING HYDROXYZINE HCL 50 MG TABLET 1 TAB ORALLY DAILY PRN TAKING ARIPIPRAZOLE 5 MG TABLET 1 TAB ORALLY DAILY TAKING FLUOXETINE 20 MGS 1 CAP ORALLY DAILY TAKING ACETAMINOPHEN 500 MG TABLET 1-2 ORALLY Q8H PRN TAKING NYSTATIN 474753 UNIT/GM CREAM 1 APPLICATION TO AFFECTED AREA EXTERNALLY TO AFFECTED AREA BENEATH BREAST TWICE A DAY TAKING FIBER-LAX 625 MG TABLET 2 TABLETS NEEDED ORALLY EVERY OTHER DAY TAKING TIZANIDINE HCL 2 MG TABLET 1 TABLET NEEDED ORALLY THREE TIMES A DAY TAKING IBUPROFEN 800 MG TABLET 1 TABLET WITH FOOD OR MILK NEEDED ORALLY THREE TIMES A DAY NEEDED NOT-TAKING ELIQUIS 5 MG TABLET DIRECTED ORALLY BID NOT-TAKING HYDROCODONE-ACETAMINOPHEN 5-325 MG TABLET 1 TABLET NEEDED ORALLY Q12H PRN MDD2 NOT-TAKING NORCO 5-325 MG TABLET 1 TABLET NEEDED ORALLY EVERY 12 HRS PRN PAIN, NOTES: DOUBLE ENTRY NOT-TAKING BUTRANS 5 MCG/HR PATCH WEEKLY 1 PATCH TO SKIN TRANSDERMAL WEEKLY NOT-TAKING CHLORTHALIDONE 12.5 12.5MG TABLET 1 TABLET ORAL ONCE DAILY NOT-TAKING COLACE 100 MG CAPSULE 1 CAPSULE NEEDED ORALLY BID NOT-TAKING COUMADIN 5 MG TABLET 1 TABLET ORALLY ONCE A DAY NOT-TAKING ALEVE 220 MG TABLET 2 ORALLY EVERY 12 HRS NEEDED MEDICATION LIST REVIEWED AND RECONCILED WITH THE PATIENT PAST MEDICAL HISTORY PTSD HYPOTHYROID CHRONIC 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 DEPRESSION BORDERLINE PERSONALITY DISORDER TACHYCARDIA MENIERES DISEASE DVT 06/2018- LEFT LOWER PE 06/2018 FIBROMYALGIA -RHEUMATOLOGY TREMOR TENDONITIS ALLERGIES PREDNISON: SEVERE ANGER - ALLERGY PENICILLIN (FOR ALLERGIES USE ONLY): PT UNSURE - ALLERGY TRAZODONE HCL: SEVERE ANGER - ALLERGY SOCIAL HISTORY GENERAL: TOBACCO USE ARE YOU A:NONSMOKER LATEX QUESTIONNAIRE LATEX ALLERGY : HAVE YOU EVER DEVELOPED ANY TYPE OF REACTION AFTER HANDLING LATEX PRODUCTS SUCH RUBBER GLOVES, CONDOMS, DIAPHRAGMS, BALLOONS, SOCKS, OR UNDERWEAR?NO LATEX ALLERGY : HAVE YOU EVER DEVELOPED ANY TYPE OF REACTION DURING OR AFTER DENTAL APPOINTMENT, VAGINAL/RECTAL EXAMINATION, SURGICAL PROCEDURE, OR ANY OTHER EXPOSURE?NO LATEX RISK : HAVE YOU EVER HAD ANY DIFFICULTY BREATHING OR HIVES AFTER EATING OR HANDLING ANY FRUITS, OR VEGETABLES; SUCH KIWI, BANANAS, STONE FRUITS, OR CHESTNUTSNO LATEX RISK : DO YOU HAVE A PREVIOUS PERSONAL HISTORY OF MORE THAN NINE SURGERIES, SPINA BIFIDA, OR REPEATED CATHERIZATIONS? NO LATEX RISK : ARE YOU FREQUENTLY EXPOSED TO LATEX PRODUCTS IN YOUR OCCUPATION?NO DATE ASKED : 04/10/2021 ALCOHOL USE: OCCASIONAL. BMI CARE GOAL FOLLOW-UP ABOVE NORMAL BMI FOLLOW-UPWEIGHT MONITORING ALCOHOL SCREENING DID YOU HAVE A DRINK CONTAINING ALCOHOL IN THE PAST YEAR?YES HOW OFTEN DID YOU HAVE SIX OR MORE DRINKS ON ONE OCCASION IN THE PAST YEAR?NEVER (0 POINTS) HOW MANY DRINKS DID YOU HAVE ON A TYPICAL DAY WHEN YOU WERE DRINKING IN THE PAST YEAR?1 OR 2 (0 POINTS) HOW OFTEN DID YOU HAVE A DRINK CONTAINING ALCOHOL IN THE PAST YEAR?MONTHLY OR LESS (1 POINT) POINTS1 INTERPRETATIONNEGATIVE RECREATIONAL DRUG USE DRUG USE?NO CAFFEINE CAFFEINE USE?YES HOW OFTEN AND HOW MUCH? OCCASIONAL COFFEE SEXUAL HX HAD SEX IN THE LAST 12 MONTHS (VAGINAL, ORAL, OR ANAL)?YES WITHMEN ONLY USE PROTECTION?NO LMP: HAVE YOU EVER HAD AN STD?YES OTHER?YES HERPES?NO SYPHILIS?NO GC?NO CHLAMYDIA?NO HIV / HEP-C SCREENING HIV TEST OFFERED TO PATIENT:YES DATE OFFERED:06/08/2019 TEST ACCEPTED:NO REASON:PATIENT DECLINED BROCHURE PROVIDED TO PATIENTNO LANGUAGE LANGUAGES SPOKEN:ROMANIAN LEARNING BARRIERS / SPECIAL NEEDS CHANGE FROM LAST VISIT?NO BARRIERS TO LEARNING?NO HEARING IMPAIRED?NO VISION IMPAIRED?YES :CORRECTIVE LENSES COGNITIVELY IMPAIRED?NO READINESS TO LEARN?YES LEARNING PREFERENCES?NO LEARNING CAPABILITIES PRESENT?YES EMOTIONAL BARRIERS?NO SPECIAL DEVICES?NO PLASTIC PRODUCTION 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 DIET: REGULAR. EXERCISE: WALKS 5 DAYS A WEEK 2 MILES. MARITAL STATUS: . OTHERS AT HOME: SPOUSE, CHILD GRAND CHILD. - PFS REFERRAL NEEDED?NO CLERGY REFERRAL NEEDED?NO PUBLIC HEALTH REFERRAL NEEDED?NO WAS THE PROVIDER NOTIFIED OF ANY PERTINENT INFO?YES HAS THE PATIENT BEEN EDUCATED REGARDING HIS/HER PLAN OF CARE?YES HAS THE PATIENT BEEN EDUCATED REGARDING PAIN, THE RISK FOR PAIN, THE IMPORTANCE OF EFFECTIVE PAIN MANAGEMENT, AND THE PAIN ASSESSMENT PROCESS?YES ADVANCE DIRECTIVE ADVANCE DIRECTIVE DISCUSSED WITH PATIENT:YES PT REQUESTED HCP FORM AND WAS GIVEN HCP AND DISCUSSED HCP. REVIEW OF SYSTEMS CONSTITUTIONAL: ANY RECENT FEVER NO . CHILLS NO . WEIGHT CHANGE OF UNKNOWN REASONS NO . GASTROENTEROLOGY: NEW UNEXPLAINABLE CHANGES IN BOWEL CONTROL NO . CONSTIPATION NO . GENITOURINARY: ANY NEW CHANGE IN BLADDER CONTROL? NO . NEUROLOGY: NEW ONSET DIZZINESS OR NEUROLOGICAL CHANGES NOT MENTIONED NO . NEW NUMBNESS OR PAIN PATTERNS NOT MENTIONED AND PERTINENT TO TODAY'S VISIT NO . CARDIOLOGY: NEW CHEST PRESSURE NO . PATIENT DENIES NO . RESPIRATORY: UNEXPLAINABLE COUGH NO . NEW SHORTNESS OF BREATH NO . VITAL SIGNS WT 265 LBS, HT 65", BMI 44.09 INDEX, BP 165/103 MM HG, HR 71 /MIN, RR 18 /MIN, TEMP 97.6 F, OXYGEN SAT % 98%, SAFE IN ENV? (Y/N) YES, NA INITIALS SC 13:55, REVIEWED BY: DINAH IS AWEAR OF PT'S BP . EXAMINATION GENERAL EXAMINATION: GENERALNO ACUTE DISTRESS, WELL NOURISHED AND HYDRATED. PSYCHAPPROPRIATE MOOD AND AFFECT . LUNGS:CLEAR TO AUSCULTATION BILATERALLY, NO WHEEZES, RHONCHI, RALES. HEART:NO MURMURS, REGULAR RATE AND RHYTHM. ASSESSMENTS CERVICAL DISC DISORDER WITH RADICULOPATHY OF CERVICOTHORACIC REGION - M50.13 (PRIMARY) TREATMENT CERVICAL DISC DISORDER WITH RADICULOPATHY OF CERVICOTHORACIC REGION REFILL TIZANIDINE HCL TABLET, 2 MG, 1 TABLET NEEDED, ORALLY, THREE TIMES A DAY, 30 DAYS, 90 TABLET, REFILLS 2 NOTES: 41-YEAR-OLD FEMALE IN FOR CHRONIC PAIN FOLLOW-UP. GIVEN PRESENTING SYMPTOMS RECOMMEND FOLLOW-UP IN 3 MONTHS AND CONTINUATION OF CURRENT MEDICATION REGIMEN. PATIENT HAS EXPRESSED UNDERSTANDING OF AND WAS IN AGREEMENT WITH TREATMENT PLAN. GIVEN TIME ASKED QUESTIONS AND EXPRESS CONCERNS. PROCEDURE CODES FA211 ESTABILISHED PATIENT [facility] CHARGE DISPOSITION & COMMUNICATION FOLLOW UP 3 MONTHS (REASON: NECK PAIN) ELECTRONICALLY SIGNED BY BONILLA MITTAL ON 04/11/2021 AT 09:16 AM EDT DISCLAIMER : THIS IS A VISIT SUMMARY EXTRACTED FROM THE [employer] CHART. IT IS NOT A COPY OF THE [employer] PROGRESS NOTE. OLIVIA
== END ==
LOC: M PAIN 14:00
PROVIDERS: ATTEND Family Medicine
DX: M50.13 Cervical disc disorder with radiculopathy, cervicothoracic region (principal); F43.10 Post-traumatic stress disorder, unspecified; E03.9 Hypothyroidism, unspecified; G43.709 Chronic migraine without aura, not intractable, without status migrainosus; F32.9 Major depressive disorder, single episode, unspecified; F60.3 Borderline personality disorder; H81.09 Meniere's disease, unspecified ear; M79.7 Fibromyalgia; R25.1 Tremor, unspecified; Z86.711 Personal history of pulmonary embolism; Z86.718 Personal history of other venous thrombosis and embolism; Z79.899 Other long term (current) drug therapy; Z88.0 Allergy status to penicillin; Z88.8 Allergy status to other drugs, medicaments and biological substances

== ENCOUNTER → 2021-04-18 | Outpatient (CLI) | payer OTHER ==
[~2021-04-18] MED LIST changes: +ALBU8.5H INH; +ALBU83IN INH; +ALLE10TA62 PO; +ARNU1INH INH; +D31000TA2 PO; +FIBE62TA PO; +LEVO88TA3 PO; +QUET100T2 PO
--- NOTE | 2021-04-18 14:33 | REP ---
INDICATION: N93.9 ABNORMAL UTERINE BLEEDING. COMPARISON: None. TECHNIQUE: Transvesical and transvaginal imaging FINDINGS: The uterus measures 9.7 x 5.2 x 6.9 cm. The parenchymal echo pattern is heterogenous without evidence of a focal ir discrete mass. The endometrial echo complex measures 1.4 cm in thickness. Within the ECC there is a subtle area of decreased echoes measuring approximately 0.6 by 1.4 by 0.7 cm. Neither ovary was visualized transvesical E or transvaginally. There is no free fluid in the cul-de-sac. The urinary bladder measures 3.6 x 2.1 x 7.7 cm. IMPRESSION: Subtle area of decreased echoes seen in the endometrial echo complex as described above. A small polyp cannot be ruled out. Follow-up is recommended. Consider pre and post gadolinium enhanced pelvic MRI since neither ovary could be visualized. <Electronically signed by Aki Wells > 04/18/21 [id number]
== END ==
LOC: M WHC 13:27
PROVIDERS: ATTEND Nurse Practitioner Women's Health
DX: N93.9 Abnormal uterine and vaginal bleeding, unspecified (principal)

== ENCOUNTER 2021-04-21 08:23 | Inpatient (IN) | payer OTHER ==
[~2021-04-21] VITALS: Ht 165.1 cm; Wt 119.4 kg
[~2021-04-21 08:23] MED LIST changes: -QUET50TA3 PO; +QUET50TA4 PO
[2021-04-21] MEDS ORDERED: IPRATROPIUM 0.5MG/ALBUTEROL 2.5MG INH SOL UD 3ML (DUONEB) NEB ONE (09:35)
[2021-04-21] MEDS ORDERED: methylPREDNISolone 125MG 2ML VIAL IV ONE (09:40)
[2021-04-21 09:50] LABS: BASO % 0.5 % (0.0-1.0); EOS # 0.2 10^3/uL (0.0-0.5); EOS % 2.3 % (0.0-3.0); HEMATOCRIT 33.5 % (36.0-47.0); HEMOGLOBIN 10.5 g/dl (12.0-15.5); LYMPH # 1.6 10^3/uL (1.5-5.0); LYMPH % 19.7 % (24.0-44.0); MEAN CORPUSCULAR HEMOGLOBIN 28.8 pg (27.0-33.0); MEAN CORPUSCULAR HGB CONC 31.3 g/dl (32.0-36.5); MONO # 0.6 10^3/uL (0.0-0.8); NEUTROPHILS # 5.6 10^3/uL (1.5-8.5); NEUTROPHILS % 70.1 % (36.0-66.0); PLATELET COUNT, AUTOMATED 256 10^3/uL (150-450); RED BLOOD COUNT 3.64 10^6/uL (4.00-5.40); WHITE BLOOD COUNT 7.9 10^3/uL (4.0-10.0)
--- NOTE | 2021-04-21 10:05 | REP ---
INDICATION: DYSPNEA/COUGH. COMPARISON: PA and lateral chest dated 10/04/2014 and portable chest dated 01/06/2021. TECHNIQUE: Upright PA and lateral chest. FINDINGS: The cardiac size is enlarged. There is diffuse bilateral interstitial coarsening. No pleural effusions. No focal infiltrates. No masses or nodules. IMPRESSION: Cardiomegaly and diffuse bilateral interstitial coarsening. <Electronically signed by Greg Loyola > 04/21/21 1001
[2021-04-21 10:06] LABS: INR 0.99; PROTHROMBIN TIME 13.5 SECONDS (12.7-14.5)
[2021-04-21 10:07] LABS: PARTIAL THROMBOPLASTIN TIME 33.2 SECONDS (25.9-37.0)
[2021-04-21 10:33] LABS: ALBUMIN 3.4 GM/DL (3.2-5.2); ALT/SGPT 31 U/L (12-78); BILIRUBIN,DIRECT 0.1 MG/DL (0.0-0.2); BILIRUBIN,TOTAL 0.4 MG/DL (0.2-1.0); BLOOD UREA NITROGEN 11 MG/DL (7-18); CALCIUM LEVEL 7.8 MG/DL (8.5-10.1); CARBON DIOXIDE LEVEL 23 MEQ/L (21-32); CHLORIDE LEVEL 112 MEQ/L (98-107); CK-MB VALUE MASS 2.5 NG/ML (<3.6); CPK CREATINE PHOSPHOKINASE 200 U/L (26-192); CREATININE FOR GFR 0.78 MG/DL (0.55-1.30); GLOMERULAR FILTRATION RATE > 60.0 (>58); GLUCOSE, FASTING 85 MG/DL (70-100); MB/CK RELATIVE INDEX 1.25 (< OR =4); NT-PRO BNP 3656 PG/ML (<125); SODIUM LEVEL 141 MEQ/L (136-145); TOTAL PROTEIN 6.1 GM/DL (6.4-8.2); TROPONIN I < 0.02 NG/ML (< 0.10)
[2021-04-21] MEDS ORDERED: FUROSEMIDE 40MG/4ML VIAL (J1940) IV ONE ×2 (11:10→15:00)
[2021-04-21] MEDS ORDERED: IPRATROPIUM 0.5MG/ALBUTEROL 2.5MG INH SOL UD 3ML (DUONEB) NEB PRN (12:10)
[2021-04-21] MEDS ORDERED: FLUO10TA2 PO (12:11)
[2021-04-21] MEDS ORDERED: LAMO200T54 PO (12:11)
[2021-04-21] MEDS ORDERED: TIZA1TAB12 PO (12:11)
[2021-04-21] MEDS ORDERED: HOME MED LIST COMPLETE! XX SCH (12:15)
[2021-04-21] MEDS ORDERED: ISOVUE-370 76% 100ML VIAL As Ordered ONE (12:17)
--- NOTE | 2021-04-21 13:13 | HPEPDOC ---
[facility] Medical History & Physical Date of Admission Apr 21, 2021 Date of Service: Apr 21, 2021 History and Physical CHIEF COMPLAINT: Shortness of breath for 2 days HISTORY OF PRESENT ILLNESS: 41-year-old morbidly obese female with BMI 44.2 non-smoker, with prior history of provoked left lower extremity DVT after knee surgery, pulmonary embolism status post Eliquis, severe persistent asthma with nightly symptoms of 4-5 times a week, tachyarrhythmia status post ablation in 1997, presents emergency room with 2-day history of worsening shortness of breath after being treated for asthma exacerbation 2 months ago. patient denies any fever chills, but complains of cough productive of white sputum without nausea vomiting diarrhea abdominal pain changes in vision sore throat. She has had no sick contacts despite albuterol every 4 hourly patient has had no improvement. She also complains of increasing lower extremity edema, increased urination for for 4-5 times per hour, and dyspnea on exertion and able to walk 2 to 3 feet without having to catch her breath. Patient denies any dysuria, urgency, frequency, flank pain. She denies any hematuria. Patient has no prior history of CAD, RI, or congestive heart failure. She was evaluated for obstructive sleep apnea in the past with nocturnal oximetry which was negative. She does not have CPAP at home. Patient has been sleeping on 2 pillows at home without any paroxysmal nocturnal dyspnea when she lays on her left side. She denies any chest pain, pressure, tightness, lightheadedness, or dizziness. States she has not had any prior history of congestive heart failure. She is not on fluid restrictions and has not been keeping an eye on her input and output or daily weights. In the emergency room patient was taking with respiratory rate of 22, afebrile, chest x-ray showed cardiomegaly with coarsening. EKG showed sinus rhythm without ST-T wave changes. Troponin was less than 0.02. She had conversational dyspnea , dyspnea on exertion with ambulating 3 to 4 feet, bilateral wheezing BNP greater than 3656. Hospitalist was called to admit the patient for new onset congestive heart failure and asthma exacerbation. PAST MEDICAL HISTORY: Asthma morbid obesity BMI 44.2 Mnire's disease hypothyroidism tachyarrhythmia status post ablation anxiety mood disorder hypertension pulmonary embolism left lower extremity DVT PAST SURGICAL HISTORY: Knee surgery D&C x2 tubal ligation cardiac ablation for tachyarrhythmia SOCIAL HISTORY: On disability denies any alcohol recreational drug use or tobacco abuse patient lives at home with her FAMILY HISTORY: Mother of congestive heart failure the age of 54 father in his early 60s due to a traumatic injury causing intracranial hemorrhage with history of multiple sclerosis ALLERGIES: Please see below. REVIEW OF SYSTEMS: 10 point review of systems negative aside from positive findings in HPI HOME MEDICATIONS: Please see below. PHYSICAL EXAMINATION: VITAL SIGNS: See below GENERAL APPEARANCE: Mild distress with use of respiratory accessory muscles no pallor icterus or jaundice patient has trouble completing her sentences and has 7-8 word conversational dyspnea HEENT: Mild jugular venous distention no stridor moist mucous membranes no cervical lymphadenopathy no thyromegaly CARDIOVASCULAR: S1-S2-S3 noted no murmurs displaced point of maximal impulse laterally slight right ventricular heave noted regular rate rhythm no carotid bruit LUNGS: Diminished breath sounds bilateral wheezing prolonged expiration positive use of respiratory muscles no nasal flaring no tracheal deviation ABDOMEN: Positive bowel sounds soft nontender nondistended obese abdomen no CVA tenderness EXTREMITIES: Trace bilateral lower extremity edema LABORATORY DATA: See below. IMAGING: See below MICROBIOLOGY: Please see below. ASSESSMENT: 41-year-old morbidly obese female with BMI 44.2 non-smoker, with prior history of provoked left lower extremity DVT after knee surgery, pulmonary embolism status post Eliquis, severe persistent asthma with nightly symptoms of 4-5 times a week, tachyarrhythmia status post ablation in 1997, presents emergency room with 2-day history of worsening shortness of breath after being treated for asthma exacerbation 2 months ago. patient denies any fever chills, but complains of cough productive of white sputum without nausea vomiting diarrhea abdominal pain changes in vision sore throat. She has had no sick contacts despite albuterol every 4 hourly patient has had no improvement. She also complains of increasing lower extremity edema, increased urination for for 4-5 times per hour, and dyspnea on exertion and able to walk 2 to 3 feet without having to catch her breath. Patient denies any dysuria, urgency, frequency, flank pain. She denies any hematuria. Patient has no prior history of CAD, RI, or congestive heart failure. She was evaluated for obstructive sleep apnea in the past with nocturnal oximetry which was negative. She does not have CPAP at home. Patient has been sleeping on 2 pillows at home without any paroxysmal nocturnal dyspnea when she lays on her left side. She denies any chest pain, pressure, tightness, lightheadedness, or dizziness. States she has not had any prior history of congestive heart failure. She is not on fluid restrictions and has not been keeping an eye on her input and output or daily weights. In the emergency room patient was taking with respiratory rate of 22, afebrile, chest x-ray showed cardiomegaly with coarsening. She had conversational dyspnea , dyspnea on exertion with ambulating 3 to 4 feet, bilateral wheezing BNP greater than 3000. Hospitalist was called to admit the patient as an inpatient for 2 midnights for new onset congestive heart failure and asthma exacerbation. PLAN: Asthma exacerbation Solu-Medrol IV every 6 hourly, nebulizer treatments every 4 and nightly as need ed inhaled steroids montelukast daily New onset acute congestive heart failure with unknown ejection fraction Strict I's and O's Daily weights 2 L fluid restriction Lasix 40 IV every 4 hourly. Monitor patient's creatinine and electrolytes keep potassium greater than 4 and magnesium greater than 2 telemetry monitoring cardiac markers every 6 hourly 2D echo ordered Morbid obesity BMI 44.2 with probable obstructive sleep apnea Supplemental oxygen to keep O2 greater than 90% at all times especially at hour of sleep. Check lipid profile Hypothyroidism Check thyroid profile. Continue Synthroid Hypertension, uncontrolled Continue with Lasix diuresis once euvolemic may start ASHISH inhibitor and beta- blockers History of Mnire's disease History of pulmonary embolism unprovoked left lower extremity DVT status post knee surgery Check CT chest and lower extremity Dopplers to rule out DVT Anxiety and mood disorder Diet: 2 g sodium diet 2 L fluid restriction strict I's and O's and daily weights CODE STATUS: Full code Healthcare proxy patient's Froylan [phone] Vital Signs Vital Signs Date Time Temp Pulse Resp B/P (MAP) Pulse Ox O2 Delivery O2 Flow Rate FiO2 04/21/21 10:08 74 92 04/21/21 10:00 18 152/91 (111) Room Air 04/21/21 08:23 98.3 Laboratory Data Labs 24H Laboratory Tests 2 04/21/21 09:32: Immature Granulocyte % (Auto) 0.4, Neutrophils (%) (Auto) 70.1H, Lymphocytes (%) (Auto) 19.7L, Monocytes (%) (Auto) 7.0, Eosinophils (%) (Auto) 2.3, Basophils (%) (Auto) 0.5, Neutrophils # (Auto) 5.6, Lymphocytes # (Auto) 1.6, Monocytes # (Auto) 0.6, Eosinophils # (Auto) 0.2, Basophils # (Auto) 0.0, Nucleated Red Blood Cells % (auto) 0.0, Anion Gap 6L, Glomerular Filtration Rate > 60.0, Calcium Level 7.8L, Total Bilirubin 0.4, Direct Bilirubin 0.1, Aspartate Amino Transf (AST/SGOT) 22, Alanine Aminotransferase (ALT/SGPT) 31, Alkaline Phosphatase 54, Total Creatine Kinase 200H, Creatine Kinase MB 2.5, Creatine Kinase MB Relative Index 1.25, Troponin I < 0.02, LC-Lkr-A-Type Natriuretic Peptide 3656H, Total Protein 6.1L, Albumin 3.4, Albumin/Globulin Ratio 1.3, Thyroid Stimulating Hormone (TSH) 6.040H 04/21/21 09:36: Prothrombin Time 13.5, Prothromb Time International Ratio 0.99, Activated Partial Thromboplast Time 33.2 CBC/BMP Laboratory Tests 04/21/21 09:32 Microbiology Microbiology 04/21/21 Respiratory Virus Panel (PCR) ([facility]) - Final, Complete Home Medications Scheduled Calcium Polycarbophil (Fiber-Lax) 625 Mg Tablet, 1,250 MG PO DAILY Cetirizine HCl (24Hour Allergy) 10 Mg Tablet, 10 MG PO DAILY Cholecalciferol (Vitamin D3) (Vitamin D3) 1,000 Unit Tablet, 1,000 UNITS PO QHS Fluoxetine HCl (Fluoxetine HCl) 10 Mg Tablet, 10 MG PO DAILY Fluticasone Furoate (Arnuity Ellipta) 100 Mcg Blst.w.dev, 1 PUFF INH DAILY Lamotrigine (Lamotrigine ER) 200 Mg Tab.er.24, 200 MG PO DAILY Levothyroxine Sodium (Levothyroxine Sodium) 88 Mcg Tablet, 88 MCG PO DAILY Losartan Potassium (Losartan Potassium) 50 Mg Tab, 50 MG PO DAILY Quetiapine Fumarate (Quetiapine Fumarate) 100 Mg Tablet, 150 MG PO QHS Tizanidine HCl (Tizanidine HCl) 2 Mg Tablet, 2 MG PO TID Triamterene/Hydrochlorothiazid (Triamterene-Hctz 37.5-25 mg Cp) 1 Cap Cap, 1 CAP PO DAILY Scheduled PRN Albuterol Sulf (Albuterol Sulfate) 2.5 Mg/3 Ml Vial.neb, 1 VIAL INH PRN PRN for WHEEZING Albuterol Sulfate (Albuterol Sulfate Hfa) 8.5 Gm Hfa.aer.ad, 2 PUFF INH Q4HP PRN for SOB/WHEEZING Allergies Coded Allergies: Penicillins (Verified Allergy, Unknown, UNKNOWN CHILDHOOD REACTION, 04/21/21) prednisone (Verified Adverse Reaction, Unknown, EXTREME ANGER, 04/21/21) trazodone (Verified Adverse Reaction, Unknown, EXTREME ANGER, 04/21/21) A-FIB/CHADSVASC A-FIB History Current/History of A-Fib/PAF?: No Current PO Anticoag Therapy: No Age/Risk Factor Scoring CHADSVASC: CHADSVASC Response (Comments) Value Age Risk Factor Age < 65 years old 0 Gender Risk Factor Female 1 Hx of CHF No 0 Hx of HTN Yes 1 Hx of Stroke/TIA/or VTE No 0 Hx of Diabetes No 0 Hx of Vascular Disease No 0 Total 2 Treatment Treatment ordered: NONE CINDI LONG MD Apr 21, 2021 13:09
--- NOTE | 2021-04-21 13:16 | REP ---
INDICATION: SOB H/O PE. COMPARISON: Chest CT with IV contrast of 07/03/2018. TECHNIQUE: Chest CT with IV contrast, CT pulmonary angiography protocol. FINDINGS: On the prior study there were emboli in the proximal left upper lobe and left lower lobe pulmonary arteries as well as the left mid lower lobe pulmonary artery. On the study today there are no emboli in the pulmonary trunk or central pulmonary arteries. There are no pulmonary emboli in the lobar segment branches on the right or the left. The previous pulmonary emboli have resolved. There are several zones of discoid atelectasis in the right middle lobe as an interval change. There infiltrates in the lower lobes bilaterally involving the medial and posterior basilar segments, slightly more radiodense on the right than the left, not present previously. There are no pleural effusions. The thoracic aorta is unremarkable. Cardiac size is enlarged. This is unchanged. There is no pericardial effusion. Upper abdomen: There appears to be hepato steatosis as an interval change. The visualized portions of the gallbladder, pancreas and spleen are unremarkable. The adrenals and visualized renal upper poles are unremarkable. IMPRESSION: There are no pulmonary emboli. The previous pulmonary emboli have resolved. There are several zones of discoid atelectasis in the right middle lobe. There are new focal infiltrates in the lower lobes bilaterally. No pleural effusions. There is cardiomegaly, unchanged. Hepato steatosis. <Electronically signed by Greg Loyola > 04/21/21 [id number]
--- NOTE | 2021-04-21 13:36 | REP ---
INDICATION: edema r/o dvt COMPARISON: Duplex deep vein ultrasound studies dated 07/03/2018 and 02/01/2021. TECHNIQUE: Deep vein duplex ultrasound of the lower extremity veins bilaterally FINDINGS: The deep veins demonstrate normal compression, normal Doppler color flow and normal Doppler waveforms with respiration augmentation from the popliteal veins to the common femoral veins bilaterally. The common femoral veins demonstrate normal Doppler color flow and normal phasicity with Doppler ultrasound. There is no thrombus on the right or the left. The posterior tibial and peroneal veins demonstrate normal compression throughout bilaterally. There is no evidence of thrombus. IMPRESSION: There is no deep vein thrombus in the right or left lower extremities. <Electronically signed by Greg Loyola > 04/21/21 [id number]
[2021-04-21 14:23] LABS: CK-MB VALUE MASS 1.6 NG/ML (<3.6); CPK CREATINE PHOSPHOKINASE 252 U/L (26-192); FREE THYROXINE INDEX 3.5 % (1.3-4.8); MB/CK RELATIVE INDEX 0.63 (< OR =4); T UPTAKE 31 % (30-39); THYROXINE (T4) 11.2 UG/DL (4.5-12.0); TROPONIN I < 0.02 NG/ML (< 0.10)
[2021-04-21] MEDS: DOXYCYCLINE HYCLATE 100 MG in D5W MINI-BAG PLUS 100 ML IV SCH (14:30)
[2021-04-21 14:39] VITALS: BP 182/90
[2021-04-21] MEDS ORDERED: amLODIPine 5 MG TAB PO ONE (15:15)
[2021-04-21 15:30] VITALS: BP 164/100
[2021-04-21] MEDS ORDERED: metOLazone 5 MG TAB PO ONE (15:30)
[2021-04-21] MEDS ORDERED: NITROGLYCERIN 0.4 MG SUBL TABLET SL STA (15:33)
[2021-04-21 15:35] VITALS: BP 168/100; PULSE 70
[2021-04-21] MEDS ORDERED: NITROGLYCERIN 0.4 MG SUBL TABLET SL PRN (15:35)
[2021-04-21 16:00] VITALS: BP 158/84
[2021-04-21] MEDS ORDERED: FUROSEMIDE 40MG/4ML VIAL (J1940) IV SCH (16:00)
[2021-04-21] MEDS ORDERED: MONTELUKAST 10 MG TAB PO ONE (16:00)
[2021-04-21] MEDS ORDERED: MORPHINE 2 MG/ML 1ML VIAL (J2270) IV ONE (16:00)
[2021-04-21] MEDS ORDERED: ENOXAPARIN 40MG/0.4ML SYRINGE (J1650 PER 10MG) SC ONE (16:00)
[2021-04-21 16:40] LABS: CK-MB VALUE MASS 1.6 NG/ML (<3.6); CPK CREATINE PHOSPHOKINASE 223 U/L (26-192); MB/CK RELATIVE INDEX 0.72 (< OR =4); TROPONIN I < 0.02 NG/ML (< 0.10)
--- NOTE | 2021-04-21 16:40 | ECGEPIP ---
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
[2021-04-21] MEDS: methylPREDNISolone 125MG 2ML VIAL IV SCH (18:21)
[2021-04-21 18:44] LABS: BLOOD UREA NITROGEN 13 MG/DL (7-18); CALCIUM LEVEL 8.8 MG/DL (8.5-10.1); CARBON DIOXIDE LEVEL 27 MEQ/L (21-32); CHLORIDE LEVEL 105 MEQ/L (98-107); CREATININE FOR GFR 1.07 MG/DL (0.55-1.30); GLOMERULAR FILTRATION RATE > 60.0 (>58); GLUCOSE, FASTING 124 MG/DL (70-100); POTASSIUM SERUM 3.7 MEQ/L (3.5-5.1); SODIUM LEVEL 141 MEQ/L (136-145)
[2021-04-21] MEDS: IPRATROPIUM 0.5MG/ALBUTEROL 2.5MG INH SOL UD 3ML (DUONEB) NEB SCH (19:49)
[2021-04-21] MEDS: FLUTICASONE HFA 110 MCG 12 GM INHALER (FLOVENT) INH SCH (19:50)
[2021-04-21 20:00] VITALS: BP 159/96
[2021-04-21] MEDS: SLF 3 ML SYR IV SCH (21:35)
[2021-04-21] MEDS: FUROSEMIDE 40MG/4ML VIAL (J1940) IV SCH (21:35)
[2021-04-22] VITALS: BP 168/98
[2021-04-22] MEDS: methylPREDNISolone 125MG 2ML VIAL IV SCH ×4 (00:02→23:43)
[2021-04-22] MEDS: DOXYCYCLINE HYCLATE 100 MG in D5W MINI-BAG PLUS 100 ML IV SCH ×2 (02:33→14:24)
[2021-04-22] MEDS: FUROSEMIDE 40MG/4ML VIAL (J1940) IV SCH ×5 (02:33→20:50)
[2021-04-22 04:00] VITALS: BP 158/89
[2021-04-22] MEDS: IPRATROPIUM 0.5MG/ALBUTEROL 2.5MG INH SOL UD 3ML (DUONEB) NEB SCH ×6 (04:00→20:00)
[2021-04-22 05:55] LABS: BLOOD UREA NITROGEN 15 MG/DL (7-18); CALCIUM LEVEL 8.7 MG/DL (8.5-10.1); CARBON DIOXIDE LEVEL 26 MEQ/L (21-32); CHLORIDE LEVEL 104 MEQ/L (98-107); CREATININE FOR GFR 0.99 MG/DL (0.55-1.30); GLOMERULAR FILTRATION RATE > 60.0 (>58); GLUCOSE, FASTING 155 MG/DL (70-100); POTASSIUM SERUM 3.4 MEQ/L (3.5-5.1); SODIUM LEVEL 140 MEQ/L (136-145)
[2021-04-22] MEDS: SLF 3 ML SYR IV SCH ×3 (06:21→23:43)
[2021-04-22] MEDS: FLUTICASONE HFA 110 MCG 12 GM INHALER (FLOVENT) INH SCH ×2 (07:19→20:21)
[2021-04-22 07:29] VITALS: BP 136/82
[2021-04-22 07:42] LABS: NT-PRO BNP 5559 PG/ML (<125)
--- NOTE | 2021-04-22 07:56 | REPVR ---
PROCEDURE INFORMATION: Exam: XR Chest Exam date and time: 04/22/2021 7:01 AM Age: 41 years old Clinical indication: Shortness of breath; Additional info: SOB TECHNIQUE: Imaging protocol: XR of the chest. Views: 1 view. COMPARISON: CR Chest, 2 view PA, Lat 04/21/2021 9:18 AM FINDINGS: Lungs: No consolidation. Pleural spaces: No pleural effusion. No pneumothorax. Heart/Mediastinum: No cardiomegaly. Bones/joints: No acute abnormality. IMPRESSION: No acute cardiopulmonary disease. Electronically signed by: Gerardo Schwartz On 04/22/2021 07:56:07 AM
[2021-04-22] MEDS ORDERED: METOCLOPRAMIDE INJ 10MG/2ML VIAL (J2765 PER 1) IV ONE (08:00)
[2021-04-22] MEDS ORDERED: FIORICET TAB PO ONE (08:00)
[2021-04-22] MEDS ORDERED: CALCIUM GLUCONATE 1,000 MG in D5W MINI-BAG PLUS 100 ML IV ONE (08:00)
[2021-04-22] MEDS: CETIRIZINE (ZyrTEC) 10 MG TAB PO SCH (08:59)
[2021-04-22] MEDS: FIBER-CON 625 MG TAB PO SCH (09:00)
[2021-04-22] MEDS: FLUoxetine 10 MG CAP PO SCH (09:00)
[2021-04-22] MEDS: MONTELUKAST 10 MG TAB PO SCH (09:00)
[2021-04-22] MEDS: LOSARTAN 50MG TABLET PO SCH (09:01)
[2021-04-22] MEDS: LEVOTHYROXINE 88MCG TABLET (0.088 MG) PO SCH (09:06)
[2021-04-22] MEDS: SPIRONOLACTONE 25 MG TAB PO SCH (09:07)
[2021-04-22] MEDS: POTASSIUM CHLORIDE 10 MEQ SR TABLET PO SCH ×2 (09:07→20:51)
[2021-04-22] MEDS: ENOXAPARIN 40MG/0.4ML SYRINGE (J1650 PER 10MG) SC SCH (09:08)
--- NOTE | 2021-04-22 10:23 | IPNPDOC ---
Date Seen The patient was seen on 04/22/21. Progress Note SUBJECTIVE: Patient says her breathing is much improved she continues to have a cough productive of white sputum decreased wheezing overnight and able to sleep except for the headache this morning. She denies any nausea vomiting chest pain pressure tightness abdominal pain. No fever chills overnight telemetry unremarkable net negative balance 5 L of urine output yesterday OBJECTIVE: Physical exam: Vital signs: See below GENERAL APPEARANCE: Lying at 45 degree bed elevation no distress able to complete full sentences no pallor icterus no use of respiratory accessory muscles HEENT: Decreased jugular venous distention no stridor moist mucous membranes no cervical lymphadenopathy no thyromegaly CARDIOVASCULAR: S1-S2 no murmurs slightly displaced point of maximal impulse laterally right ventricular heave noted regular rate rhythm no carotid bruit LUNGS: Diminished prolonged expiration with faint expiratory wheezing no rales ABDOMEN: Positive bowel sounds soft nontender nondistended obese abdomen no CVA tenderness no rebound or guarding EXTREMITIES: 1+ bilateral lower extremity edema LABORATORY DATA: See below. IMAGING: See below MICROBIOLOGY: Please see below. ASSESSMENT: 41-year-old morbidly obese female with BMI 44.2 non-smoker, with prior history of provoked left lower extremity DVT after knee surgery, pulmonary embolism status post Eliquis, severe persistent asthma with nightly symptoms of 4-5 times a week, tachyarrhythmia status post ablation in 1997, presents emergency room with 2-day history of worsening shortness of breath after being treated for asthma exacerbation 2 months ago. patient denies any fever chills, but complains of cough productive of white sputum without nausea vomiting diarrhea abdominal pain changes in vision sore throat. She has had no sick contacts despite albuterol every 4 hourly patient has had no improvement. She also complains of increasing lower extremity edema, increased urination for for 4-5 times per hour, and dyspnea on exertion and able to walk 2 to 3 feet without having to catch her breath. Patient denies any dysuria, urgency, frequency, flank pain. She denies any hematuria. Patient has no prior history of CAD, CT, or congestive heart failure. She was evaluated for obstructive sleep apnea in the past with nocturnal oximetry which was negative. She does not have CPAP at home. Patient has been sleeping on 2 pillows at home without any paroxysmal nocturnal dyspnea when she lays on her left side. She denies any chest pain, pressure, tightness, lightheadedness, or dizziness. States she has not had any prior history of congestive heart failure. She is not on fluid restrictions and has not been keeping an eye on her input and output or daily weights. In the emergency room patient was taking with respiratory rate of 22, afebrile, chest x-ray showed cardiomegaly with coarsening. She had conversational dyspnea , dyspnea on exertion with ambulating 3 to 4 feet, bilateral wheezing BNP greater than 3000. Hospitalist was called to admit the patient as an inpatient for 2 midnights for new onset congestive heart failure and asthma exacerbation. PLAN: Asthma exacerbation Solu-Medrol IV changed to every 12 hourly, nebulizer treatments every 4 and nightly as needed inhaled steroids montelukast daily New onset acute congestive heart failure with unknown ejection fraction Strict I's and O's Daily weights 2 L fluid restriction Lasix 40 IV every 4 hourly. Patient was net negative since admission. Monitor patient's creatinine and electrolytes keep potassium greater than 4 and magnesium greater than 2 telemetry monitoring. Negative cardiac markers x3. 2D echo ordered. BNP still elevated most likely a component of pulmonary hypertension from history of PE obesity with probable obstructive sleep apnea. Repeat CT chest showed no pulmonary embolism Migraine Avoid nonsteroidal anti-inflammatories due to acute congestive heart failure May use Fioricet 2 tablets as needed IV Reglan Avoid Toradol as it can exacerbate congestive heart failure Morbid obesity BMI 44.2 with probable obstructive sleep apnea Supplemental oxygen to keep O2 greater than 90% at all times especially at hour of sleep. Hypothyroidism Continue Synthroid thyroid profile reviewed. Hypertension, uncontrolled Continue with Lasix diuresis once euvolemic May resume on low-dose ASHISH inhibitor once the patient is euvolemic History of Mnire's disease History of pulmonary embolism unprovoked left lower extremity DVT status post knee surgery Negative CT chest for PE and negative lower extremity Dopplers for DVT Anxiety and mood disorder Diet: 2 g sodium diet 2 L fluid restriction strict I's and O's and daily weights CODE STATUS: Full code Healthcare proxy patient's Froylan [phone] VS, I&O, 24H, Fishbone Vital Signs/I&O Vital Signs Date Time Temp Pulse Resp B/P (MAP) Pulse Ox O2 Delivery O2 Flow Rate FiO2 04/22/21 09:06 16 8/8/21 09:01 136/82 04/22/21 07:29 97.6 81 95 Room Air I&O- Last 24 Hours up to 6 AM 04/22/21 06:00 Intake Total 300 ml Output Total 6050 ml Balance -5750 ml Laboratory Data 24H LABS Laboratory Tests 2 04/21/21 13:37: Total Creatine Kinase 252H, Creatine Kinase MB 1.6, Creatine Kinase MB Relative Index 0.63, Troponin I < 0.02, Thyroid Stimulating Hormone (TSH) 3.720, Free Thyroxine Index 3.5, Thyroxine (T4) 11.2, Triiodothyronine (T3) Uptake 31 04/21/21 15:57: Total Creatine Kinase 223H, Creatine Kinase MB 1.6, Creatine Kinase MB Relative Index 0.72, Troponin I < 0.02 04/21/21 18:10: Anion Gap 9, Glomerular Filtration Rate > 60.0, Calcium Level 8.8, Whole Blood Ionized Calcium 4.3L, Magnesium Level 1.9 04/22/21 05:28: Anion Gap 10, Glomerular Filtration Rate > 60.0, Calcium Level 8.7, Whole Blood Ionized Calcium 4.1L, Magnesium Level 2.0, ID-Lvq-Y-Type Natriuretic Peptide 5559H CBC/BMP Laboratory Tests 04/21/21 18:10 04/22/21 05:28 Microbiology Microbiology 04/21/21 Respiratory Virus Panel (PCR) ([facility]) - Final, Complete CINDI LONG MD Apr 22, 2021 10:23
[2021-04-22] MEDS ORDERED: ACETAMINOPHEN 500 MG TAB PO ONE (11:00)
[2021-04-22 11:14] LABS: CREATININE FOR GFR 1.13 MG/DL (0.55-1.30); GLOMERULAR FILTRATION RATE 56.8 (>58); POTASSIUM SERUM 3.2 MEQ/L (3.5-5.1)
[2021-04-22 11:24] VITALS: BP 147/75
--- NOTE | 2021-04-22 12:04 | ECGEPIP ---
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
[2021-04-22 15:39] VITALS: BP 137/79
[2021-04-22 19:26] LABS: CALCIUM LEVEL 8.9 MG/DL (8.5-10.1); CREATININE FOR GFR 1.22 MG/DL (0.55-1.30)
[2021-04-22 20:00] VITALS: BP 145/84
[2021-04-22] MEDS: VITAMIN D 1,000 INTERNATIONAL UNITS TABLET PO SCH (20:48)
[2021-04-22] MEDS: QUEtiapine FUMARATE 50MG TAB PO SCH (20:48)
[2021-04-22] MEDS ORDERED: QUEtiapine FUMARATE 100 MG TAB PO SCH (21:00)
[2021-04-22] MEDS ORDERED: QUEtiapine FUMARATE 25 MG TAB PO SCH (21:00)
[2021-04-23] MEDS: FUROSEMIDE 40MG/4ML VIAL (J1940) IV SCH ×2 (01:20→05:35)
[2021-04-23] MEDS: DOXYCYCLINE HYCLATE 100 MG in D5W MINI-BAG PLUS 100 ML IV SCH ×2 (01:20→13:00)
[2021-04-23 04:00] VITALS: BP 139/85
[2021-04-23] MEDS: IPRATROPIUM 0.5MG/ALBUTEROL 2.5MG INH SOL UD 3ML (DUONEB) NEB SCH ×7 (04:00→23:44)
[2021-04-23] MEDS: LEVOTHYROXINE 88MCG TABLET (0.088 MG) PO SCH (05:36)
[2021-04-23] MEDS: SLF 3 ML SYR IV SCH ×3 (05:37→20:59)
[2021-04-23 05:59] LABS: CALCIUM LEVEL 8.5 MG/DL (8.5-10.1); CREATININE FOR GFR 1.14 MG/DL (0.55-1.30); GLOMERULAR FILTRATION RATE 56.2 (>58); MAGNESIUM LEVEL 2.1 MG/DL (1.8-2.4); POTASSIUM SERUM 3.3 MEQ/L (3.5-5.1)
[2021-04-23] MEDS ORDERED: metOLazone 5 MG TAB PO ONE ×2 (06:15→09:30)
[2021-04-23] MEDS ORDERED: POTASSIUM CHLORIDE 10 MEQ SR TABLET PO ONE (06:15)
[2021-04-23] MEDS ORDERED: FUROSEMIDE 100MG/10ML VIAL (J1940) IV ONE ×2 (06:45→10:00)
[2021-04-23] MEDS ORDERED: FIORICET TAB PO ONE (07:40)
[2021-04-23] MEDS: FLUTICASONE HFA 110 MCG 12 GM INHALER (FLOVENT) INH SCH ×2 (07:58→20:59)
[2021-04-23 08:00] VITALS: BP 135/104
[2021-04-23] MEDS: CETIRIZINE (ZyrTEC) 10 MG TAB PO SCH (09:34)
[2021-04-23] MEDS: ENOXAPARIN 40MG/0.4ML SYRINGE (J1650 PER 10MG) SC SCH (09:34)
[2021-04-23 09:37] VITALS: BP 135/104
[2021-04-23] MEDS: FIBER-CON 625 MG TAB PO SCH (09:37)
[2021-04-23] MEDS: LOSARTAN 50MG TABLET PO SCH (09:37)
[2021-04-23] MEDS: MONTELUKAST 10 MG TAB PO SCH (09:37)
[2021-04-23] MEDS: FLUoxetine 10 MG CAP PO SCH (09:38)
[2021-04-23] MEDS: SPIRONOLACTONE 25 MG TAB PO SCH (09:39)
--- NOTE | 2021-04-23 11:28 | IPNPDOC ---
Date Seen The patient was seen on 04/23/21. Progress Note SUBJECTIVE: sob improved, and ambulating well without MULLIGAN. c/o headache which improved with meds yesterday-avoiding NSAIDs due to active CHF. no c/o cp, pressure, tightness, lightheadedness, or dizziness. no aura, neck rigidity, neck pain, b/l ue paresthesias, fever, chils, or photophobia with her headache. OBJECTIVE: Physical exam: Vital signs: See below GENERAL APPEARANCE: 30 degree hob elevation. no distress. no conversational dyspnea able to complete her sentences. HEENT:no jugular venous distention no stridor moist mucous membranes no cervical lymphadenopathy no thyromegaly CARDIOVASCULAR: S1-S2 no murmurs slightly displaced point of maximal impulse laterally right ventricular heave noted regular rate rhythm no carotid bruit LUNGS: Diminished fine crackles at bases b/l. scant faint expiratory wheezing. no tripod positioning ABDOMEN: Positive bowel sounds soft nontender nondistended obese abdomen no CVA tenderness no rebound or guarding EXTREMITIES: 1+ bilateral lower extremity edema LABORATORY DATA: See below. IMAGING: See below MICROBIOLOGY: Please see below. ASSESSMENT: 41-year-old morbidly obese female with BMI 44.2 non-smoker, with prior history of provoked left lower extremity DVT after knee surgery, pulmonary embolism status post Eliquis, severe persistent asthma with nightly symptoms of 4-5 times a week, tachyarrhythmia status post ablation in 1997, presents emergency room with 2-day history of worsening shortness of breath after being treated for a sthma exacerbation 2 months ago. patient denies any fever chills, but complains of cough productive of white sputum without nausea vomiting diarrhea abdominal pain changes in vision sore throat. She has had no sick contacts despite albuterol every 4 hourly patient has had no improvement. She also complains of increasing lower extremity edema, increased urination for for 4-5 times per hour, and dyspnea on exertion and able to walk 2 to 3 feet without having to catch her breath. Patient denies any dysuria, urgency, frequency, flank pain. She denies any hematuria. Patient has no prior history of CAD, [place], or congestive heart failure. She was evaluated for obstructive sleep apnea in the past with nocturnal oximetry which was negative. She does not have CPAP at home. Patient has been sleeping on 2 pillows at home without any paroxysmal nocturnal dyspnea when she lays on her left side. She denies any chest pain, pressure, tightness, lightheadedness, or dizziness. States she has not had any prior history of congestive heart failure. She is not on fluid restrictions and has not been keeping an eye on her input and output or daily weights. In the emergency room patient was taking with respiratory rate of 22, afebrile, chest x-ray showed cardiomegaly with coarsening. She had conversational dyspnea , dyspnea on exertion with ambulating 3 to 4 feet, bilateral wheezing BNP gre ater than 3000. Hospitalist was called to admit the patient as an inpatient for 2 midnights for new onset congestive heart failure and asthma exacerbation. PLAN: Asthma exacerbation decreased to 40 mg Solu-Medrol IV changed to every 12 hourly, nebulizer treatments every 4 and nightly as needed inhaled steroids montelukast daily. allergy to prednisone. can dc solumedrol in am, and taper on po decadron as outpt. New onset acute congestive heart failure with unknown ejection fraction Strict I's and O's Daily weights 2 L fluid restriction Lasix 40 IV every 4 hourly. Patient has been in net negative balance since admission, despite no changes noted on weights daily. Monitor patient's creatinine and electrolytes keep potassium greater than 4 and magnesium greater than 2 telemetry monitoring. Negative cardiac markers x3. 2D echo ordered. but not done yet. BNP still elevated most likely a component of pulmonary hypertension from history of PE obesity with probable obstructive sleep apnea. Repeat CT chest showed no pulmonary embolism. creatinine remains normal. AVOID NSAIDS WHILE PATIENT IS IN ACUTE CHF. Migraine Avoid nonsteroidal anti-inflammatories due to acute congestive heart failure May use Fioricet 2 tablets as needed IV Reglan Avoid Toradol as it can exacerbate congestive heart failure Morbid obesity BMI 44.2 with probable obstructive sleep apnea Supplemental oxygen to keep O2 greater than 90% at all times especially at hour of sleep. Hypothyroidism Continue Synthroid thyroid profile reviewed. Hypertension, uncontrolled Continue with Lasix diuresis once euvolemic May resume on low-dose ASHISH inhibitor OR arb once the patient is euvolemic History of Mnire's disease History of pulmonary embolism unprovoked left lower extremity DVT status post knee surgery Negative CT chest for PE and negative lower extremity Dopplers for DVT Anxiety and mood disorder Diet: 2 g sodium diet 2 L fluid restriction strict I's and O's and daily weights CODE STATUS: Full code Healthcare proxy patient's Froylan [phone] DISPOSITION: 2 more days of diuresis, await 2D echo report VS, I&O, 24H, Fishbone Vital Signs/I&O Vital Signs Date Time Temp Pulse Resp B/P (MAP) Pulse Ox O2 Delivery O2 Flow Rate FiO2 04/23/21 10:35 18 04/23/21 09:37 135/104 04/23/21 08:00 98.7 91 92 Room Air I&O- Last 24 Hours up to 6 AM 04/23/21 06:00 Intake Total 1140 ml Output Total 3475 ml Balance -2335 ml Laboratory Data 24H LABS Laboratory Tests 2 04/22/21 18:50: Anion Gap 10, Glomerular Filtration Rate 52.0L, Calcium Level 8.9, Magnesium Level 2.0 04/23/21 05:17: Anion Gap 7L, Glomerular Filtration Rate 56.2L, Calcium Level 8.5, Magnesium Level 2.1 CBC/BMP Laboratory Tests 04/22/21 18:50 04/23/21 05:17 Microbiology Microbiology 04/21/21 Respiratory Virus Panel (PCR) ([facility]) - Final, Complete CINDI LONG MD Apr 23, 2021 11:28
[2021-04-23] MEDS ORDERED: METOCLOPRAMIDE INJ 10MG/2ML VIAL (J2765 PER 1) IV PRN (11:40)
[2021-04-23] MEDS ORDERED: LOSARTAN 50MG TABLET PO ONE (11:40)
[2021-04-23] MEDS ORDERED: FIORICET TAB PO PRN (11:40)
[2021-04-23] MEDS: methylPREDNISolone 125MG 2ML VIAL IV SCH (12:00)
[2021-04-23 16:06] LABS: CALCIUM LEVEL 8.6 MG/DL (8.5-10.1); CREATININE FOR GFR 1.34 MG/DL (0.55-1.30); GLOMERULAR FILTRATION RATE 46.6 (>58); MAGNESIUM LEVEL 2.2 MG/DL (1.8-2.4); POTASSIUM SERUM 3.5 MEQ/L (3.5-5.1)
[2021-04-23 16:35] VITALS: BP 142/85
[2021-04-23 16:50] VITALS: BP 141/82
[2021-04-23] MEDS: QUEtiapine FUMARATE 50MG TAB PO SCH (20:59)
[2021-04-23] MEDS: VITAMIN D 1,000 INTERNATIONAL UNITS TABLET PO SCH (20:59)
[2021-04-23 22:00] VITALS: BP 155/81
[2021-04-24] MEDS: methylPREDNISolone 125MG 2ML VIAL IV SCH ×2 (00:01→12:00)
[2021-04-24] MEDS: SLF 3 ML SYR IV PRN ×2 (00:02→02:28)
[2021-04-24] MEDS: DOXYCYCLINE HYCLATE 100 MG in D5W MINI-BAG PLUS 100 ML IV SCH (02:28)
[2021-04-24] MEDS: IPRATROPIUM 0.5MG/ALBUTEROL 2.5MG INH SOL UD 3ML (DUONEB) NEB SCH ×2 (03:33→07:28)
[2021-04-24 04:47] VITALS: BP 164/57
[2021-04-24] MEDS: LEVOTHYROXINE 88MCG TABLET (0.088 MG) PO SCH (05:19)
[2021-04-24] MEDS: SLF 3 ML SYR IV SCH ×2 (05:20→13:32)
[2021-04-24 06:28] LABS: HEMATOCRIT 41.2 % (36.0-47.0); HEMOGLOBIN 13.1 g/dl (12.0-15.5); MEAN CORPUSCULAR HEMOGLOBIN 28.7 pg (27.0-33.0); MEAN CORPUSCULAR HGB CONC 31.8 g/dl (32.0-36.5); MEAN CORPUSCULAR VOLUME 90.2 fl (80.0-96.0); PLATELET COUNT, AUTOMATED 409 10^3/uL (150-450); RED BLOOD COUNT 4.57 10^6/uL (4.00-5.40); WHITE BLOOD COUNT 13.8 10^3/uL (4.0-10.0)
[2021-04-24 06:54] LABS: BLOOD UREA NITROGEN 32 MG/DL (7-18); CALCIUM LEVEL 9.5 MG/DL (8.5-10.1); CARBON DIOXIDE LEVEL 30 MEQ/L (21-32); CHLORIDE LEVEL 96 MEQ/L (98-107); CREATININE FOR GFR 1.07 MG/DL (0.55-1.30); GLOMERULAR FILTRATION RATE > 60.0 (>58); GLUCOSE, FASTING 111 MG/DL (70-100); POTASSIUM SERUM 3.6 MEQ/L (3.5-5.1); SODIUM LEVEL 136 MEQ/L (136-145)
[2021-04-24 06:55] LABS: MAGNESIUM LEVEL 2.5 MG/DL (1.8-2.4)
[2021-04-24] MEDS: FLUTICASONE HFA 110 MCG 12 GM INHALER (FLOVENT) INH SCH (07:28)
--- NOTE | 2021-04-24 07:51 | ECHO ---
ECHOCARDIOGRAM DATE OF PROCEDURE: 04/23/2021 REFERRING PHYSICIAN: CINDI LONG MD INDICATION: Dyspnea Age: 41 Gender: Female Height: 165 cm Weight: 120 kg MEASUREMENTS: IV 1.2 cm LV 5.3 cm LVPW 1.1 cm LA 3.1 cm Aorta 3.2 cm Mitral E wave velocity 72 A wave 62 E prime septal 4.8 E prime lateral 6.9 Left atrium volume index 32 mL/m2 FINDINGS: This study was of fair technical quality corresponding to patient's body habitus, underlying sinus rhythm. Normal LV size. Borderline LVH. Overall preserved LV systolic function, estimated LVEF 55 to 60%. Normal RV size and systolic function. Mild left atrial enlargement. Right atrium was poorly seen. The aortic, mitral and tricuspid valves appear grossly normal. Pulmonic valve was poorly visualized but grossly also appears normal. No pericardial effusion is noted. Inferior vena cava was not seen. The aortic root and aortic arch appear normal. Abdominal aorta was not visualized. Doppler interrogation reveals competent aortic valve. There is trace mitral insufficiency. Tricuspid and pulmonary valves are competent as well. Mitral inflow pattern and tissue Doppler imaging of mitral annulus revealed Grade 2 diastolic dysfunction. CONCLUSIONS: 1. Study is of fair technical quality corresponding to patient's body habitus, underlying sinus rhythm. 2. Normal LV size with mild LVH and preserved LV systolic function. Grade 2 diastolic dysfunction. 3. No significant valvular disease. 4. Unable to estimate central venous pressure and pulmonary artery pressure.
[2021-04-24] MEDS ORDERED: LOSARTAN 50MG TABLET PO SCH (09:00)
[2021-04-24] MEDS ORDERED: DOXYCYCLINE HYCLATE 100MG TABLET PO SCH (09:00)
[2021-04-24] MEDS ORDERED: FUROSEMIDE 40 MG TAB PO SCH (09:00)
[2021-04-24] MEDS: CETIRIZINE (ZyrTEC) 10 MG TAB PO SCH (09:46)
[2021-04-24] MEDS: MONTELUKAST 10 MG TAB PO SCH (09:46)
[2021-04-24] MEDS: FIBER-CON 625 MG TAB PO SCH (09:46)
[2021-04-24] MEDS: FLUoxetine 10 MG CAP PO SCH (09:46)
[2021-04-24] MEDS: ENOXAPARIN 40MG/0.4ML SYRINGE (J1650 PER 10MG) SC SCH (09:46)
[2021-04-24] MEDS ORDERED: ALBU83IN INH (10:30)
[2021-04-24] MEDS ORDERED: LASI40TA9 PO (10:30)
[2021-04-24] MEDS ORDERED: MONT10TA10 PO (10:30)
[2021-04-24] MEDS ORDERED: DOXY100T PO (10:30)
--- NOTE | 2021-04-25 17:39 | DS.PDOC ---
Discharge Summary General Date of Admission Apr 21, 2021 at 12:06 Date of Discharge 04/25/21 Discharge Summary PROCEDURES PERFORMED DURING STAY: [None]. DISCHARGE DIAGNOSES: Acute diastolic CHF Asthma exacerbation Morbid obesity BMI of 43.8 Probable sleep apnea Secondary diagnosis Provoked DVT and pulmonary embolism Migraines Anxiety Mood disorder Hypertension Mnire's disease Hypothyroid COMPLICATIONS/CHIEF COMPLAINT: Asthma Exacerbation. HOSPITAL COURSE: 41-year-old morbidly obese female, non-smoker, with prior history of provoked left lower extremity DVT after knee surgery, pulmonary embolism status post Eliquis, severe persistent asthma with nightly symptoms of 4-5 times a week, tachyarrhythmia status post ablation in 1997, presents emergency room with 2-day history of worsening shortness of breath on exertion, increasing bilateral lower extremity swelling and increased urination. She was treated for asthma exacerbation 2 months ago. This time she has been using her albuterol several times without any relief of symptoms. She was evaluated for obstructive sleep apnea in the past with nocturnal oximetry which was negative. In the emergency room patient was taking with respiratory rate of 22, afebrile, chest x-ray showed cardiomegaly with coarsening. She had conversational dyspnea , dyspnea on exertion with ambulating 3 to 4 feet, bilateral wheezing BNP greater than 3000. She was felt to have new onset congestive heart failure and asthma exacerbation. Asthma exacerbation Finished her course of her methylprednisone so will not give any more steroids and discharge We will start the patient on montelukast Continue with home inhaler Arnuity, albuterol MDI as needed, and albuterol nebulizer New onset acute congestive heart failure Echo shows grade 2 diastolic dysfunction with normal EF We will continue with home hydrochlorothiazide/triamterene combination and also add Lasix 40 mg daily 2 g sodium diet and fluid restriction 1.8 L Instructed to weigh herself daily Migraine No acute attacks at this time Continue lamotrigine Morbid obesity BMI 43.8 with probable obstructive sleep apnea The patient reports that she had a nocturnal oximetry done in the past which was negative Hypothyroidism Continue Synthroid Hypertension We will resume losartan and diuretics We will also start Lasix History of Mnire's disease History of pulmonary embolism provoked left lower extremity DVT status post knee surgery Negative CT chest for PE and negative lower extremity Dopplers for DVT Anxiety and mood disorder Fluoxetine and Seroquel DISCHARGE MEDICATIONS: Please see below. ALLERGIES: Please see below. PHYSICAL EXAMINATION ON DISCHARGE: VITAL SIGNS: Please see below. GENERAL APPEARANCE: 30 degree hob elevation. no distress. no conversational dyspnea able to complete her sentences. HEENT:no jugular venous distention no stridor moist mucous membranes no cervical lymphadenopathy no thyromegaly CARDIOVASCULAR: S1-S2 normal, no murmurs rub or gallop. regular rate and normal rhythm no carotid bruit LUNGS: Diminished fine crackles at bases b/l. No rhonchi or wheezing ABDOMEN: Positive bowel sounds soft nontender nondistended obese abdomen no CVA tenderness no rebound or guarding EXTREMITIES: Trace bilateral lower extremity edema LABORATORY DATA: Please see below. ECHO: This study was of fair technical quality corresponding to patient's body habitus, underlying sinus rhythm. Normal LV size. Borderline LVH. Overall preserved LV systolic function, estimated LVEF 55 to 60%. Normal RV size and systolic function. Mild left atrial enlargement. Right atrium was poorly seen. The aortic, mitral and tricuspid valves appear grossly normal. Pulmonic valve was poorly visualized but grossly also appears normal. No pericardial effusion is noted. Inferior vena cava was not seen. The aortic root and aortic arch appear normal. Abdominal aorta was not visualized. Doppler interrogation reveals competent aortic valve. There is trace mitral insufficiency. Tricuspid and pulmonary valves are competent as well. Mitral inflow pattern and tissue Doppler imaging of mitral annulus revealed Grade 2 diastolic dysfunction. CONCLUSIONS: 1. Study is of fair technical quality corresponding to patient's body habitus, underlying sinus rhythm. 2. Normal LV size with mild LVH and preserved LV systolic function. Grade 2 diastolic dysfunction. 3. No significant valvular disease. 4. Unable to estimate central venous pressure and pulmonary artery pressure. ACTIVITY: [As tolerated]. DIET: 2 g sodium, 1800 cc fluid restriction DISPOSITION: 01 Home, Self-Care. DISCHARGE INSTRUCTIONS: Follow-up with PMD in 1 week DISCHARGE CONDITION: [Stable]. TIME SPENT ON DISCHARGE: 35 minutes. Vital Signs/I&Os Vital Signs Date Time Temp Pulse Resp B/P (MAP) Pulse Ox O2 Delivery O2 Flow Rate FiO2 04/24/21 04:47 97.8 70 18 164/57 (92) 95 Room Air I&O- Last 24 Hours up to 6 AM 04/25/21 06:00 Intake Total 0 ml Balance 0 ml Microbiology Microbiology 04/21/21 Respiratory Virus Panel (PCR) ([facility]) - Final, Complete Discharge Medications Scheduled Calcium Polycarbophil (Fiber-Lax) 625 Mg Tablet, 1,250 MG PO DAILY, (Reported) Cetirizine HCl (24Hour Allergy) 10 Mg Tablet, 10 MG PO DAILY, (Reported) Cholecalciferol (Vitamin D3) (Vitamin D3) 1,000 Unit Tablet, 1,000 UNITS PO QHS, (Reported) Doxycycline Hyclate (Doxycycline Hyclate) 100 Mg Tablet, 100 MG PO BID Fluoxetine HCl (Fluoxetine HCl) 10 Mg Tablet, 10 MG PO DAILY, (Reported) Fluticasone Furoate (Arnuity Ellipta) 100 Mcg Blst.w.dev, 1 PUFF INH DAILY, (Reported) Furosemide (Lasix) 40 Mg Tablet, 40 MG PO DAILY Lamotrigine (Lamotrigine ER) 200 Mg Tab.er.24, 200 MG PO DAILY, (Reported) Levothyroxine Sodium (Levothyroxine Sodium) 88 Mcg Tablet, 88 MCG PO DAILY, (Reported) Losartan Potassium (Losartan Potassium) 50 Mg Tab, 50 MG PO DAILY, (Reported) Montelukast Sodium (Montelukast Sodium) 10 Mg Tablet, 10 MG PO DAILY Quetiapine Fumarate (Quetiapine Fumarate) 100 Mg Tablet, 150 MG PO QHS, (Reported) Tizanidine HCl (Tizanidine HCl) 2 Mg Tablet, 2 MG PO TID, (Reported) Triamterene/Hydrochlorothiazid (Triamterene-Hctz 37.5-25 mg Cp) 1 Cap Cap, 1 CAP PO DAILY, (Reported) Scheduled PRN Albuterol Sulf (Albuterol Sulfate) 2.5 Mg/3 Ml Vial.neb, 1 VIAL INH Q4HP PRN for WHEEZING Albuterol Sulfate (Albuterol Sulfate Hfa) 8.5 Gm Hfa.aer.ad, 2 PUFF INH Q4HP PRN for SOB/WHEEZING, (Reported) Allergies Coded Allergies: Penicillins (Verified Allergy, Unknown, UNKNOWN CHILDHOOD REACTION, 04/21/21) prednisone (Verified Adverse Reaction, Unknown, EXTREME ANGER, 04/21/21) trazodone (Verified Adverse Reaction, Unknown, EXTREME ANGER, 04/21/21) CONCEPCION COLLINS MD Apr 25, 2021 17:39
== END 2021-04-24 14:14 | disposition home or self-care (01) | DRG 291 ==
LOC: M ED 08:23 → M ED INP 12:06 → ENRESERV 12:55 → M PCU 14:33 → M MSPAV 04-23 16:46
PROVIDERS: ADMIT General Practice; ATTEND Internal Medicine Nephrology
DX: I11.0 Hypertensive heart disease with heart failure (principal); I50.31 Acute diastolic (congestive) heart failure; Z68.41 Body mass index [BMI] 40.0-44.9, adult; N17.9 Acute kidney failure, unspecified; J45.51 Severe persistent asthma with (acute) exacerbation; E66.01 Morbid (severe) obesity due to excess calories; E03.9 Hypothyroidism, unspecified; F41.9 Anxiety disorder, unspecified; Z86.711 Personal history of pulmonary embolism; Z86.718 Personal history of other venous thrombosis and embolism; Z79.899 Other long term (current) drug therapy; Z88.0 Allergy status to penicillin; Z88.8 Allergy status to other drugs, medicaments and biological substances; G43.909 Migraine, unspecified, not intractable, without status migrainosus

== ENCOUNTER → 2021-04-30 | Outpatient (REF) | payer MEDICARE, OTHER ==
[~2021-04-30] MED LIST changes: +DOXY100T PO; +FLUO10TA2 PO; +LAMO200T54 PO; +MONT10TA10 PO; +TIZA1TAB12 PO
== END ==
LOC: M SFHCWAGY 12:56
PROVIDERS: ATTEND Nurse Practitioner Women's Health
DX: N87.0 Mild cervical dysplasia (principal)

== ENCOUNTER → 2021-05-03 | Outpatient (REF) | payer OTHER, MEDICARE ==
[~2021-05-03] MED LIST changes: -KLOR20TA42 PO; +POTA-141 PO
[2021-05-03 18:25] LABS: APPEARANCE, URINE CLOUDY (CLEAR); BACTERIA, URINE AUTO 1+ (NEGATIVE); BILIRUBIN, URINE AUTO NEGATIVE (NEGATIVE); BLOOD, URINE BLOOD NEGATIVE (NEGATIVE); COLOR, URINE YELLOW (YELLOW); GLUCOSE, URINE (UA) AUTO NEGATIVE (NEGATIVE); KETONE, URINE AUTO NEGATIVE (NEGATIVE); LEUKOCYTE ESTERASE, URINE AUTO TRACE (NEGATIVE); NITRITE, URINE AUTO NEGATIVE (NEGATIVE); PROTEIN, URINE AUTO NEGATIVE (NEGATIVE); RBC, URINE AUTO 2 /HPF (0-3); SPECIFIC GRAVITY URINE AUTO 1.009 (1.002-1.035); SQUAMOUS EPITHELIAL CELL UR AU 7 /HPF (0-6); UROBILINOGEN, URINE AUTO 0.2 mg/dL (0.0-2.0); WBC, URINE AUTO 2 /HPF (0-3)
== END ==
LOC: M SMT 17:18
PROVIDERS: ATTEND Urology
DX: N32.81 Overactive bladder (principal)
CPT/HCPCS: 81001; G0463

== ENCOUNTER → 2021-05-28 | Outpatient (CLI) | payer OTHER ==
[~2021-05-28] MED LIST changes: +PROHANCE 279.3MG/ML 15ML VIAL As Ordered ONE; +PROHANCE 279.3MG/ML 5ML VIAL As Ordered ONE
--- NOTE | 2021-05-28 15:52 | REP ---
INDICATION: ABN URTERINE BLEEDING. COMPARISON: None. TECHNIQUE: Various sequences in various planes was obtained before and after the administration of intravenous gadolinium. 20 cc of ProHance was administered. FINDINGS: The endometrium and cervical junction lines are within normal limits. There are a few incidental nabothian cysts. There is no evidence of a mass or mass effect. There is no evidence of adenopathy. There is no free fluid. The ovaries are within normal limits, however, not all of the left ovary was imaged in all sequences. The cortical and marrow signal throughout the imaged osseous structures is within normal limits. There are no abnormal areas of enhancement. IMPRESSION: MRI findings are within normal limits. <Electronically signed by Aki Wells > 05/28/21 1213
== END ==
LOC: M RAD 13:45
PROVIDERS: ATTEND Nurse Practitioner Women's Health
DX: N93.9 Abnormal uterine and vaginal bleeding, unspecified (principal)
CPT/HCPCS: 72197; A9576

== ENCOUNTER 2021-08-04 14:31 | Emergency (ER) | payer OTHER ==
[~2021-08-04] VITALS: Ht 165.1 cm; Wt 111.4 kg
[~2021-08-04 14:31] MED LIST changes: -CYMB60CA3 PO; +CYMB60CA4 PO; -PROHANCE 279.3MG/ML 15ML VIAL As Ordered ONE; -PROHANCE 279.3MG/ML 5ML VIAL As Ordered ONE
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
--- OUTSIDE RECORDS SUMMARY | 2021-08-04 14:40 | CCD ---
Author Author [facility] Organization [facility] Address Unknown Phone Unavailable Care Team Providers Care Director Of Real Estate Name Role Phone Luis Felipe Velasco Unavailable PROBLEMS Type Condition ICD9-CM Code [id number] Code Onset Dates Condition S tatus W/U Status Risk SNOMED Code Notes Problem Generalized pain R52 Active confirmed 829 72991 Problem Cervical high risk HPV (human papillomavirus) test positiv e R87.810 Active confirmed 219191066 Problem Cervicalgia M54.2 Active confirmed 76068360 Problem Cervical disc disorder with radiculopath y, unspecified cervical region M50.10 Active confirmed 269797785 Problem Myalgia, other site M79.18 Active confirmed 95808169 Problem Cervical radiculopathy M54.12 Active confirmed 47630472 Problem Cervical disc displacement M50.20 Active confirmed 040555846 Problem Fibromyalgia M79.7 Active confirmed 4966757 05 Problem Chronic migraine without aur a without status migrainosus, not intractable G43.709 Active confirmed 040741696 Problem Cervical disc disorder with radiculopathy of cer vicothoracic region M50.13 Active confirmed 557191748 Problem Protrusion of cervical intervertebral disc M50.20 Active confirmed 908733882 Problem Osteoarthritis of cervical s pine, unspecified spinal osteoarthritis complication status M47.812 Active confirmed 734177614 Problem Lumbago of lumbar region with sciatica M54.40 A ctive confirmed 238050144 Problem Body mass index [BMI]40.0-44.9, adult Z68.41 Ac tive confirmed 468564919 Problem Tobacco use disorder F17.200 Active confirmed 317695743 Problem Morbid (severe) obesity due to excess calories E66 .01 Active confirmed 496703526 Problem Urge incontinence N39.41 Active confirmed 87 790549 Problem Cervical high risk human papillomavirus (HPV) DN A test positive R87.810 Active confirmed 390959614454465 Problem Overactive bladder N32.81 Active confirmed 7 70517606 Problem LGSIL on Pap smear of cervix R87.612 Active confirm ed 310129525 Problem Myalgia M79.1 Active confirmed 81524193 Problem Abnormal uterine bleeding (AUB) N93.9 Active confirmed 91776743741010 Problem Papanicolaou smear of cervix with positive high risk human papilloma virus (HPV) test R87.810 Active confirmed 583166706 Problem Congestive heart failure, un specified HF chronicity, unspecified heart failure type I50.9 Active confirmed 88083682 Problem Obesity, unspecified classif ication, unspecified obesity type, unspecified whether serious comorbidity present E66.9 Ac tive confirmed 972478601 ALLERGIES Allergen (clinical drug ingredient) Drug/Non Drug Allergy do cumented on EMR Reaction Allergy Type Onset Date Status trazodone TraZODone HCl([facility] Code:[address]-04) severe anger Drug Al lergy Active Prednison severe anger Drug Allergy Active Penicillin (For Allergies Use Only) pt unsure Drug Allerg y Active ENCOUNTERS from 1981 to 2021-06-11 Encounter Location Date Provider Diagnosis [facility] [phone] [place] [address] Apr, Luis Felipe Velasco Overactive bladder N32.81 ; Urge inconti nence N39.41 ; Obesity, unspecified classification, unspecified obesity type, unspecified whether serious comorbidity present E66.9 and Congestive heart failure, unspecified HF chronicity, unspecified heart failure type I50.9 IMMUNIZATIONS No Information SOCIAL HISTORY Tobacco Use: Social History Observation Description Date Details (start date - stop date) Never Smoker Sex Assigned At : Social History Observation Description Sex Assigned At Unknown Language: Question Answer Notes Languages spoken: Greenlandic Tenriism: Question Answer Notes Tenriism 33 None Alcohol Screening: Question Answer Notes Did you have a drink containing alcohol in the past year? Ye s Points 1 Interpretation Negative How often did you have six or more drinks on one occas ion in the past year? Never (0 points) How many drinks did you have on a typica l day when you were drinking in the past year? 1 or 2 (0 points) How often did you have a drink containing alcohol in t he past year? Monthly or less (1 point) BMI Care Goal Follow-Up Question Answer Notes Above Normal BMI Follow-Up Weight monitoring Tobacco Use: Question Answer Notes Are you a: never smoker REASON FOR REFERRAL No Information VITAL SIGNS Weight 256 lbs Apr, Weight-kg 116.12 kg Apr, Height 65" in Apr, BMI 42.60 kg/m2 Apr, Heart Rate 78 /min Apr, Respiratory Rate 17 /min Apr, Temperature 95.5 degrees Fahrenheit Apr, Oximetry 94 Apr, Blood pressure systolic 112 mm Hg Apr, Blood pressure diastolic 64 mm Hg Apr, MEDICATIONS Medication SIG (Take, Route, Frequency, Duration) Notes Start Da te End Date Status Colace 100 MG 1 capsule as needed Orally bid for 30 day(s) Aug, Not-Taking Singulair 4 MG 1 tablet Orally Once a day Active Levothyroxine Sodium 88 MCG 1 tablet Orally Once a day Active Eliquis 5 MG as directed Orally bid Not-Taking Coumadin 5 MG 1 tablet Orally Once a day Not-Taking ARIPiprazole 5 MG 1 tab Orally Daily Active Losartan Potassium 50 mg 1 tablet Orally Once a day Active hydrOXYzine HCl 50 MG 1 tab Orally Daily prn Active Acetaminophen 500 mg 1-2 Orally q8h prn Dec, Active Fiber-Lax 625 MG 2 tablets as needed Orally EVERY OTHER DAY Active Fluoxetine 20 mgs 1 cap orally Daily Active Nystatin 785799 UNIT/GM 1 application to affected ar ea Externally to affected area beneath breast Twice a day for 21 day(s) May, Active Butrans 5 MCG/HR 1 patch to skin Transdermal weekly for 30 days Sep, Not-Taking Albuterol Sulfate HFA 108 (90 Base) MCG/ACT 2 puffs as needed Inhalation every 4 hrs Active ZyrTEC Allergy 10 MG 1 tablet Orally Once a day Active Chlorthalidone 12.5 12.5mg 1 tablet oral once daily Not-Taking tiZANidine HCl 2 MG 1 tablet as needed Orally Three times a day for 30 days Sep, Active HYDROcodone-Acetaminophen 5-325 MG 1 tablet as needed Orally q12h prn mdd2 for 30 Days Nov, Not-Taking lamoTRIgine 100 mg 1 tablet Orally bid Active Ibuprofen 800 MG 1 tablet with food or milk a s needed Orally Three times a day as needed Active Lasix 40 MG 1 tablet Orally Once a day for 30 day(s) 2020 Active Triamterene-HCTZ 37.5-25 MG 1 tab Orally Daily Active Myrbetriq 50 MG 1 tablet Orally Once a day for 30 day(s) 1 Apr, Active Edgerton 5-325 MG 1 tablet as needed Orally every 12 hrs P RN pain for 30 days double entry Sep, Not-Taking Symbicort 160-4.5 MCG/ACT 2 puffs Inhalation Twice a day Active SEROquel 50 MG 1 tablet Orally Once a day Active Breo Ellipta 100-25 MCG/INH 1 puff Inhalation Once a day Active Aleve 220 MG 2 Orally every 12 hrs as needed Not-Taking Vitamin D 66126 U 1 tablet Orally once a week Active PROCEDURES No Information RESULTS Component Value Reference Range UA URINALYSIS Reviewed date:05/09/2021 12:15:55 Interpretation: Performing Lab:[facility], [facility] [address] [address] , ,[facility] REASON FOR VISIT Unspecified urinary incontinence MEDICAL (GENERAL) HISTORY Type Description Date Medical History PTSD Medical History hypothyroid Medical History chronic migraines without aura Medical History depression Medical History borderline personality disorder Medical History tachycardia Medical History Menieres Disease Medical History DVT 06/2018- left lower Medical History PE 06/2018 Medical History FIBROMYALGIA -RHEUMATOLOGY Medical History tremor Medical History Tendonitis Medical History CHF Medical History URINARY INCONTINENCE Surgical History lasik both eyes Surgical History cardiac catheterization 1998 Surgical History D&C x2 1998,1999 Surgical History cervical cerclage x3 Surgical History BTL 2007 Surgical History left knee meniscuis repair a nd fixed another ligament too - hospitalized for DVT and 2 days later PE Jun 2018 Surgical History NIEVES, Dr Capone, BON 3 on colp 05/2018 Hospitalization History surgery related Hospitalization History Mental Health 03/2018 Hospitalization History s/p knee surgery- DVT/Pulm embolism 06/2018 Hospitalization History CHF 04/21/21 Goals Section No Information Health Concerns No Information MEDICAL EQUIPMENT No Information MENTAL STATUS No Information FUNCTIONAL STATUS No Information ASSESSMENTS Encounter Date Diagnosis Assessment Notes Treatment Notes Treatm ent Clinical Notes Apr, Overactive bladder (ICD-10 - N32.81) Apr, Urge incontinence (ICD-10 - N39.41) Apr, Obesity, unspecified classif ication, unspecified obesity type, unspecified whether serious comorbidity present (ICD-10 - E66.9) Apr, Congestive heart failure, un specified HF chronicity, unspecified heart failure type (ICD-10 - I50.9) PLAN OF TREATMENT Medication Medication Name Sig Start Date Stop Date Myrbetriq 50 MG 1 tablet Orally Once a day for 30 day(s) Apr, Next Appt Details 4 Weeks Reason:oab Provider Name:Pankaj Aleman, 2021-07-12 02:00:00 PM, [address], , [place], [address], Follow Up:4 Weeksoab Insurance Providers Payer Name Payer Address Payer Phone Insured Name Patient Relati onship to Insured Coverage Start Date Coverage End Date MEDICARE Part A and B [address] [facility] [id number] LILIAM JACKSON self [employer] [facility] [address] [address] [facility] [address] LILIAM JACKSON [facility] [address] [facility] [address] LILIAM JACKSON self
--- OUTSIDE RECORDS SUMMARY | 2021-08-04 14:40 | CCD | Continuity of Care Document ---
Author Author Elsa ZELAYA MD Organization Unknown Address [address] [place] [address] Phone [phone] Care Team Providers Care Market President Name Role Phone Ronni Adams MD AUTM [phone] Gayla De La Torre AUTM [phone] Problems Active Problems Provider Date Sprain of ankle Onset: 05/06/2017 Social History Type Date Description Comments Sex Unknown ETOH Use Rarely consumes alcohol Tobacco Use Start: Unknown Patient has never smoked Allergies and adverse reactions Active Allergies Criticality Reaction | Severity Comments Date Trazodone Unable to assess criticality | Severe 11/08/2014 Prednisone Unable to assess criticality 02/18/2014 Penicillins Unable to assess criticality 02/18/2014 Medications Active Medications SIG Qnty Indications Ordering Provide r Date Chlorthalidone 25mg Tablets D aily Unknown Lamotrigine 100mg Tablets Twi ce A Day Unknown Levothyroxine Sodium 25mcg Tablets Daily Unknown Losartan Potassium 50mg Tablets Twice A Day Unknown Quetiapine Fumarate 50mg Tablets Daily Unknown Tizanidine HCL 4mg Capsules as needed for Muscle Spasms Unknown Hydroxyzine HCL 50mg Tablets take 1-2 tab oral every 6 hour as needed for anxiety Unknown Fluoxetine HCL (PMDD) 20mg Capsule s 1 by mouth three times a day Unknown 00 Cetirizine HCL 10mg Tablets 1 by mouth every day Unknown Triamterene/Hydrochlorothiazide 37.5-25mg Tablets 1 by mouth every day Unknown 000 Vitamin D3 Ultra Potency 19945Jtsj Tablets 1 by mouth weekly for 12 weeks Unknown Immunizations Description No Information Available Vital Signs Date Vital Result Comment 02/01/2021 2:01pm Body Temperature 97.1 F Height 66 inches 5'6" Weight 257.00 lb BMI (Body Mass Index) 41.5 kg/m2 01/18/2021 2:43pm Body Temperature 97.5 F Height 66.75 inches 5'6.75" Weight 267.38 lb BMI (Body Mass Index) 42.2 kg/m2 Results Description No Information Available Procedures Date Code Description Status 02/19/2021 96153 Office/Outpatient Established Hi gh MDM 40-54 Min Completed 02/07/2021 41445 Physical Therapy Eval - Low Comp lexity Completed 02/01/2021 61465 Office/Outpatient Established Mo d MDM 30-39 Min Completed 02/01/2021 19561 X-Ray Knee Complete W/Obliques & Tunnel And/Or Standing Views Completed 01/18/2021 66172 Office/Outpatient Established Mo d MDM 30-39 Min Completed 01/18/2021 39261 X-Ray Spine Cervical 6 Or More V iews Completed Medical Devices Description No Information Available Encounters Type Date Location Provider Dx Diagnosis Office Visit 02/19/2021 1:15p Latasha Goldsmith MD M50.30 Other cervical disc degeneration, unsp cervical region M47.892 Other spondylosis, cervical region M48.02 Spinal stenosis, cervical re gion 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 Z68.41 Body mass index [BMI] 40.0-4 4.9, adult Office Visit 02/01/2021 2:30p Latasha Caro MD M17.12 Unilateral primary osteoarthritis, left knee M62.452 Contracture of muscle, left thigh M70.52 Other bursitis of knee, left knee M25.562 Pain in left knee Office Visit 01/18/2021 2:00p Latasha Goldsmith MD M47.892 Other spondylosis, cervical region M50.30 Other cervical disc degenera tion, unsp cervical region M54.12 Radiculopathy, cervical jewell on Z68.41 Body mass index [BMI] 40.0-4 4.9, adult Assessments Date Code Description Provider 06/21/2021 M25.562 Pain in left knee Melvin Mary Hadley P.T. 06/21/2021 M47.892 Other spondylosis, cervical jewell on Melvin Mary Hadley P.T. 02/19/2021 M50.30 Other cervical disc degeneration , unspecified cervical region Bruce Goldsmith MD 02/19/2021 M47.892 Other spondylosis, cervical jewell on Bruce Goldsmith MD 02/19/2021 M48.02 Spinal stenosis, cervical region Bruce Goldsmith MD 02/19/2021 D68.8 Other specified coagulation defe cts Bruce Goldsmith MD 02/19/2021 Z68.41 Body mass index [BMI]40.0-44.9, adult Bruce Goldsmith MD 02/07/2021 M47.892 Other spondylosis, cervical jewell on Melvin Hadley P.T. 02/07/2021 M25.562 Pain in left knee Melvin Hadley P.T. 02/01/2021 M17.12 Unilateral primary osteoarthriti s, left knee Renan Caro MD 02/01/2021 M62.452 Contracture of muscle, left thig h Renan Caro MD 02/01/2021 M70.52 Other bursitis of knee, left kne e Renan Caro MD 02/01/2021 M25.562 Pain in left knee Renan noble MD 01/18/2021 M47.892 Other spondylosis, cervical jewell on Bruce Goldsmith MD 01/18/2021 M50.30 Other cervical disc degeneration , unspecified cervical region Bruce Goldsmith MD 01/18/2021 M54.12 Radiculopathy, cervical region B eugene Goldsmith MD 01/18/2021 Z68.41 Body mass index [BMI]40.0-44.9, adult Bruce Goldsmith MD Plan of Treatment Future Appointment(s):* 07/04/2021 9:30 am - Perla Oliver PA-C at [facility] Functional Status Description No Information Available Mental Status Description No Information Available Referrals Refer to Reason for Referral Status Appt Date Bruce Goldsmith MD M25.562 PAIN IN LEFT KNEE M1 7.12 UNILATERAL PRIMARY OSTEOARTHRITIS, LEFT KNEE Created [address] [place] [address] [phone] Bruce Goldsmith MD REF NO AUTH REQUIRED FOR REF TO HEMATOLOGY IN [place] TO TRANS NT Created [address] [place] [address] [phone] PT - RECEIVED WRITTEN AUTH F OR UNL V FROM 02/07/21 TIL 08/10/21. RESPONSE #[id number]. BS Created Renan Caro MD PT ALLOWED EVAL THEN NEEDS AUTH TO PT DEPT . NT Created [address] [place] [address] [phone] Bruce Goldsmith MD MRI APPROVED PER [facility] FOR MRI OF CERVICAL SPINE (18717) TO BOB DOMÍNGUEZ Created [address] [place] [address] [phone] Bruce Goldsmith MD MRI APPROVED PER [employer] FOR MRI OF CERVICAL SPINE (73478) TO BOB DOMÍNGUEZ Created [address] [place] [address] [phone] Bruce Goldsmith MD PT PER [place] [facility] ALL OWED EVAL THEN NEEDS AUTH ([phone]) AND COVERED AT 100% TO PT DEPT. NT CALL REF #[id number] Created [address] [place] [address] [phone]
--- OUTSIDE RECORDS SUMMARY | 2021-08-04 14:40 | CCD ---
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 Name Role Phone Ronni Adams Unavailable Unavailable Allergies Code Code System Name Reaction Severity Status Onset Penicillin Active 5 8640 RxNorm Prednisone Active 5 Trazodone Active 03/02/2015 Notes: TRAZADONE - Reaction: [...] Active Not available aripiprazole 10 mg tablet Active Not av ailable Arnuity Ellipta 100 mcg/actuation powder for inhalation INHALE ONE PUFF BY MOUTH EVERY DAY Active Not available atomoxetine 60 mg capsule Active Not av ailable baclofen 10 mg tablet Completed 10/26/2020 benzonatate 100 mg capsule Completed 10/26 benztropine 0.5 mg tablet Active Not av ailable cetirizine 10 mg tablet Active Not avai lable cholecalciferol (vit D3) 1,000 unit-bernard min K2 [...] TAKE ONE CAPSULE BY MOUTH EVERY DAY Completed fluoxetine 20 mg capsule Active Not mehran ilable fluticasone propionate 50 mcg/actuation nasal spray,suspension C ompleted 10/26/2020 furosemide 40 mg tablet TAKE ONE TABLET BY MOUTH EVERY DAY Active Not available hydrocodone 5 mg-acetaminophen 325 mg ta blet TAKE ONE TABLET BY MOUTH EVERY 12 HOURS NEEDED MAXIMUM DAILY DOSE 2 TABLETS Completed 03/29/2021 lamotrigine 200 mg tablet Active Not av ailable lamotrigine ER 100 mg tablet,extended re lease 24 hr TAKE ONE TABLET BY MOUTH TWICE A DAY Completed lamotrigine ER 200 mg tablet,extended re lease 24 hr TAKE ONE TABLET BY MOUTH EVERY DAY Active Not available Lasix Completed 07/11/2021 levothyroxine 75 mcg tablet TAKE ONE TABLET BY MOUTH EVERY DAY ON AN EMPTY STOMACH Completed 07/11/2021 levothyroxine 88 mcg tablet TAKE ONE TABLET [...] 1 1/2 TABLETS BY MOUTH AT BEDTIME Completed 07/11/2021 quetiapine 200 mg tablet Active Not mehran ilable quetiapine 50 mg tablet Completed 10/26/19 21 [...] not avai lable 10/03/2020 XR, Lumbosacral Spine [facility] [address] [place] [address] (Work Place) Notes: Lasix 2007, Heart Cath 1997 as a result of tachycardia, 2 D & C, Leep Apr 2018 Results Lab Results Date Name Specimen Result Interpretation Description Value Range Status Address 06/21/2021 Lipid Panel, Serum Blood venous High Sonam sterol, Total 224 mg/dL <200 mg/dL Final [facility]: [address] [facility] Blood venous Low HDL Cholesterol 43 mg/dL > or = 50 mg/dL Final [facility]: [address] [facility] Blood venous Normal Triglycerides 145 mg/dL <150 mg/dL Final [facility]: [address] [facility] Blood venous High LDL-cholesterol 154 mg/dL (ca lc) Final [facility]: [address] [facility] Blood venous High Chol/hdlc Ratio 5.2 (calc) <5 .0 (calc) Final [facility]: [address] [facility] Blood venous High Non HDL Cholesterol 181 mg/dL (calc) <130 mg/dL (calc) Final [facility]: [address] [place] [facility] 06/21/2021 CMP, Serum or Plasma Blood venous Normal Glucose 88 mg/dL 65-99 mg/dL Final [facility]: [address] [facility] Blood venous Normal Urea Nitrogen (BUN) 15 mg/dL 7-25 mg/dL Final [facility]: [address] [facility] Blood venous Normal Creatinine 0.88 mg/dL 0.50-1. 10 mg/dL [facility]: [address] [facility] Blood venous Normal eGFR Non-afr. Bangladeshi 8 2 mL/min/1.73m2 > or = 60 mL/min/1.73m2 Final [facility]: [address] [place] [facility] Blood venous Normal eGFR 95 mL/min/1.73m2 > or = 60 mL/min/1.73m2 Final [facility]: [address] [facility] Blood venous BUN/creatinine Ratio not applicable (calc) 6-22 (calc) [facility]: [address] [facility] Blood venous Normal Sodium 139 mmol/L 135-146 mmo l/L [facility]: [address] [facility] Blood venous Low Potassium 3.4 mmol/L 3.5-5.3 mmol/L [facility]: [address] [facility] Blood venous Normal Chloride 102 mmol/L 98-110 mm ol/L [facility]: [address] [facility] Blood venous Normal Carbon Dioxide 28 mmol/L 20-3 2 mmol/L [facility]: [address] [facility] Blood venous Normal Calcium 9.6 mg/dL 8.6-10.2 mg /dL [facility]: [address] [facility] Blood venous Normal Protein, Total 6.8 g/dL 6.1-8 .1 g/dL [facility]: [address] [facility] Blood venous Normal Albumin 4.6 g/dL 3.6-5.1 g/dL [facility]: [address] [facility] Blood venous Normal Globulin 2.2 g/dL (calc) 1.9- 3.7 g/dL (calc) [facility]: [address] [facility] Blood venous Normal Albumin/globulin Ratio 2 .1 (calc) 1.0-2.5 (calc) [facility]: [address] [facility] Blood venous Normal Bilirubin, Total 0.5 mg/dL 0. 2-1.2 mg/dL [facility]: [address] [facility] Blood venous Normal Alkaline Phosphatase 54 U/L 3 1-125 U/L [facility]: [address] [facility] Blood venous Normal Ast 15 U/L 10-30 U/L [facility]: [address] [facility] Blood venous Normal Alt 12 U/L 6-29 U/L Final [facility]: [address] [facility] 06/21/2021 Tsh Blood venous Normal Tsh 3.04 mIU/L [facility]: [address] [facility] 05/02/2021 BMP, Serum or Plasma Blood venous Normal Glucose 92 mg/dL 65-99 mg/dL [facility]: [address] [facility] Blood venous Normal Urea Nitrogen (BUN) 14 mg/dL 7-25 mg/dL [facility]: [address] [facility] Blood venous Normal Creatinine 1.00 mg/dL 0.50-1. 10 mg/dL [facility]: [address] [facility] Blood venous Normal eGFR Non-afr. Bangladeshi 7 0 mL/min/1.73m2 > or = 60 mL/min/1.73m2 Final [facility]: [address] [place] , [place] Blood venous Normal eGFR 82 mL/min/1.73m2 > or = 60 mL/min/1.73m2 Final [facility]: [address] [facility] Blood venous BUN/creatinine Ratio not applicable (calc) 6-22 (calc) Final [facility]: [address] , [place] Blood venous Normal Sodium 139 mmol/L 135-146 mmo l/L Final [facility]: [address] [place] , [place] Blood venous Low Potassium 3.4 mmol/L 3.5-5.3 mmol/L [facility]: [address] [facility] Blood venous Low Chloride 96 mmol/L 98-110 mmo l/L Final [facility]: [address] [facility] Blood venous High Carbon Dioxide 34 mmol/L 20-3 2 mmol/L [facility]: [address] [facility] Blood venous Normal Calcium 9.5 mg/dL 8.6-10.2 mg /dL Final [facility]: [address] [place] [facility] 04/24/2021 Cbc High White Blood Count 13.8 10 4.0-10 .0 10 [facility]: 0 [facility] Normal Red Blood Count 4.57 10 4.00-5.40 10 [facility]: [address] [facility] Normal Hemoglobin 13.1 g/dL 12.0-15.5 g/dL [facility]: [address] [facility] Normal Hematocrit 41.2 % 36.0-47.0 % [facility]: 0 [facility] Normal Mean Corpuscular Volume 90.2 fL 80.0 -96.0 fL [facility]: 0 [facility] Normal Mean Corpuscular Hemoglobin 28.7 pg 27.0-33.0 pg [facility]: [address] [facility] Low Mean Corpuscular HGB Conc 31.8 g/dL 32.0-36.5 g/dL [facility]: 0 [facility] High Red Cell Distribution Width 15.1 % 1 1.5-14.5 % [facility]: 0 [facility] Normal Platelet Count, Automated 409 10 150 -450 10 [facility]: [address] [facility] Normal Nucleated Red Blood Cell % 0.0 % 0- 0 % [facility]: [address] [facility] 04/24/2021 BMP, Serum or Plasma High Glucose, Fastin g 111 mg/dL 70-100 mg/dL [facility]: 83 0 [facility] High Blood Urea Nitrogen 32 mg/dL 7-18 mg /dL [facility]: [address] [place] [address] Normal Creatinine for GFR 1.07 mg/dL 0.55-1 .30 mg/dL [facility]: 0 [facility] Normal Glomerular Filtration Rate > 60.0 >5 8 [facility]: [address] [facility] Normal Sodium Level 136 mEq/L 136-145 mEq/L [facility]: 0 [facility] Normal Potassium Serum 3.6 mEq/L 3.5-5.1 mE q/L [facility]: 0 [facility] Low Chloride Level 96 mEq/L 98-107 mEq/L [facility]: [address] [facility] Normal Carbon Dioxide Level 30 mEq/L 21-32 mEq/L [facility]: [address] [facility] Normal Anion Gap 10 mEq/L 8-16 mEq/L [facility]: [address] [facility] Normal Calcium Level 9.5 mg/dL 8.5-10.1 mg/ dL [facility]: [address] [facility] 04/24/2021 Magnesium, Serum or Plasma High Magnesium Level 2.5 mg/dL 1.8- 2.4 mg/dL [facility]: 83 0 [facility] 04/23/2021 BMP, Serum or Plasma High Glucose, Fastin g 137 mg/dL 70-100 mg/dL [facility]: 83 0 [facility] High Blood Urea Nitrogen 28 mg/dL 7-18 mg /dL [facility]: [address] [facility] Normal Creatinine for GFR 1.14 mg/dL 0.55-1 .30 mg/dL [facility]: [address] [facility] Low Glomerular Filtration Rate 56.2 >5 8 [facility]: [address] [facility] Normal Sodium Level 139 mEq/L 136-145 mEq/L [facility]: [address] [facility] Low Potassium Serum 3.3 mEq/L 3.5-5.1 mE q/L [facility]: [address] [facility] Normal Chloride Level 102 mEq/L 98-107 mEq/ L [facility]: [address] [facility] Normal Carbon Dioxide Level 30 mEq/L 21-32 mEq/L [facility]: [address] [facility] Low Anion Gap 7 mEq/L 8-16 mEq/L [facility]: [address] [facility] Normal Calcium Level 8.5 mg/dL 8.5-10.1 mg/ dL [facility]: [address] [facility] 04/23/2021 Magnesium, Serum or Plasma Normal Magnesium Level 2.1 mg/dL 1.8-2.4 mg/dL [facility]: 83 0 [facility] 04/23/2021 Ionized Calcium Low Ionized Calcium 4.2 mg/dL 4.5-5.3 mg/dL [facility]: [address] [facility] 04/23/2021 BMP, Serum or Plasma High Glucose, Fastin g 233 mg/dL 70-100 mg/dL [facility]: 83 0 [facility] High Blood Urea Nitrogen 32 mg/dL 7-18 mg /dL [facility]: [address] [facility] High Creatinine for GFR 1.34 mg/dL 0.55-1 .30 mg/dL [facility]: [address] [facility] Low Glomerular Filtration Rate 46.6 >5 8 [facility]: [address] [facility] Normal Sodium Level 137 mEq/L 136-145 mEq/L [facility]: [address] [facility] Normal Potassium Serum 3.5 mEq/L 3.5-5.1 mE q/L [facility]: [address] [facility] Low Chloride Level 97 mEq/L 98-107 mEq/L [facility]: [address] [facility] Normal Carbon Dioxide Level 29 mEq/L 21-32 mEq/L [facility]: [address] [facility] Normal Anion Gap 11 mEq/L 8-16 mEq/L [facility]: [address] [facility] Normal Calcium Level 8.6 mg/dL 8.5-10.1 mg/ dL [facility]: [address] [facility] 04/23/2021 Magnesium, Serum or Plasma Normal Magnesium Level 2.2 mg/dL 1.8-2.4 mg/dL [facility]: 83 0 [facility] 04/22/2021 Ionized Calcium Low Ionized Calcium 4.1 mg/dL 4.5-5.3 mg/dL [facility]: [address] [facility] 04/22/2021 BMP, Serum or Plasma High Glucose, Fastin g 155 mg/dL 70-100 mg/dL [facility]: 83 0 [facility] Normal Blood Urea Nitrogen 15 mg/dL 7-18 mg /dL [facility]: [address] [facility] Normal Creatinine for GFR 0.99 mg/dL 0.55-1 .30 mg/dL [facility]: [address] [facility] Normal Glomerular Filtration Rate > 60.0 >5 8 [facility]: [address] [facility] Normal Sodium Level 140 mEq/L 136-145 mEq/L [facility]: 8[address] [facility] Low Potassium Serum 3.4 mEq/L 3.5-5.1 mE q/L [facility]: [address] [facility] Normal Chloride Level 104 mEq/L 98-107 mEq/ L [facility]: [address] [facility] Normal Carbon Dioxide Level 26 mEq/L 21-32 mEq/L [facility]: [address] [facility] Normal Anion Gap 10 mEq/L 8-16 mEq/L [facility]: [address] [facility] Normal Calcium Level 8.7 mg/dL 8.5-10.1 mg/ dL [facility]: [address] [facility] 04/22/2021 Magnesium, Serum or Plasma Normal Magnesium Level 2.0 mg/dL 1.8-2.4 mg/dL [facility]: 83 0 [facility] 04/22/2021 Pro BNP (Pro B-type Natriuretic Peptide), Serum or Plasma High Nt-pro BNP 5559 pg/mL <125 pg/mL [facility]: [address] [facility] 04/22/2021 Ionized Calcium Low Ionized Calcium 4.4 mg/dL 4.5-5.3 mg/dL [facility]: 830 [facility] 04/22/2021 BMP, Serum or Plasma High Glucose, Fastin g 263 mg/dL 70-100 mg/dL [facility]: 83 0 [facility] High Blood Urea Nitrogen 20 mg/dL 7-18 mg /dL [facility]: [address] [facility] Normal Creatinine for GFR 1.13 mg/dL 0.55-1 .30 mg/dL [facility]: 8[address] [facility] Low Glomerular Filtration Rate 56.8 >5 8 [facility]: [address] [facility] Normal Sodium Level 138 mEq/L 136-145 mEq/L [facility]: 8[address] [facility] Low Potassium Serum 3.2 mEq/L 3.5-5.1 mE q/L [facility]: 8[address] [facility] Normal Chloride Level 102 mEq/L 98-107 mEq/ L [facility]: [address] [facility] Normal Carbon Dioxide Level 26 mEq/L 21-32 mEq/L [facility]: [address] [facility] Normal Anion Gap 10 mEq/L 8-16 mEq/L [facility]: 8[address] [facility] Normal Calcium Level 9.0 mg/dL 8.5-10.1 mg/ dL [facility]: 8[address] [facility] 04/22/2021 Magnesium, Serum or Plasma Normal Magnesium Level 2.0 mg/dL 1.8-2.4 mg/dL [facility]: 83 0 [facility] 04/22/2021 BMP, Serum or Plasma High Glucose, Fastin g 172 mg/dL 70-100 mg/dL [facility]: 83 0 [facility] High Blood Urea Nitrogen 21 mg/dL 7-18 mg /dL [facility]: [address] [facility] Normal Creatinine for GFR 1.22 mg/dL 0.55-1 .30 mg/dL [facility]: 8[address] [facility] Low Glomerular Filtration Rate 52.0 >5 8 [facility]: 8[address] [facility] Normal Sodium Level 140 mEq/L 136-145 mEq/L [facility]: 8[address] [facility] Low Potassium Serum 3.0 mEq/L 3.5-5.1 mE q/L [facility]: 830 [facility] Normal Chloride Level 101 mEq/L 98-107 mEq/ L [facility]: [address] [facility] Normal Carbon Dioxide Level 29 mEq/L 21-32 mEq/L [facility]: [address] [facility] Normal Anion Gap 10 mEq/L 8-16 mEq/L [facility]: [address] [facility] Normal Calcium Level 8.9 mg/dL 8.5-10.1 mg/ dL [facility]: 8[address] [facility] 04/22/2021 Magnesium, Serum or Plasma Normal Magnesium Level 2.0 mg/dL 1.8-2.4 mg/dL [facility]: 83 0 [facility] 04/21/2021 CBC W/ Auto Diff Normal White Blood Count 7.9 10 4.0-10.0 10 [facility]: 8[address] [facility] Low Red Blood Count 3.64 10 4.00-5.40 10 [facility]: 830 [facility] Low Hemoglobin 10.5 g/dL 12.0-15.5 g/dL [facility]: [address] [facility] Low Hematocrit 33.5 % 36.0-47.0 % [facility]: 8[address] [facility] Normal Mean Corpuscular Volume 92.0 fL 80.0 -96.0 fL [facility]: 8[address] [facility] Normal Mean Corpuscular Hemoglobin 28.8 pg 27.0-33.0 pg [facility]: 8[address] [facility] Low Mean Corpuscular HGB Conc 31.3 g/dL 32.0-36.5 g/dL [facility]: [address] [facility] High Red Cell Distribution Width 15.0 % 1 1.5-14.5 % [facility]: 8[address] [facility] Normal Platelet Count, Automated 256 10 150 -450 10 [facility]: [address] [facility] High Neutrophils % 70.1 % 36.0-66.0 % [facility]: [address] [facility] Low Lymph % 19.7 % 24.0-44.0 % [facility]: 8[address] [facility] Normal [place] % 7.0 % 2.0-8.0 % [facility]: 8[address] [facility] Normal Eos % 2.3 % 0.0-3.0 % [facility]: 8[address] [facility] Normal Baso % 0.5 % 0.0-1.0 % [facility]: 8[address] [facility] Normal Immature Granulocyte % 0.4 % 0-3.0 % [facility]: 830 [facility] Normal Nucleated Red Blood Cell % 0.0 % 0- 0 % [facility]: 8[address] [facility] Normal Neutrophils # 5.6 10 1.5-8.5 10 [facility] 8[address] [facility] Normal Lymph # 1.6 10 1.5-5.0 10 [facility]: [address] [facility] Normal [place] # 0.6 10 0.0-0.[address] [facility]: [address] [facility] Normal Eos # 0.2 10 0.0-0.5 10 [facility]: 830 [facility] Normal Baso # 0.0 10 0.0-0.[address] [facility]: [address] [facility] 04/21/2021 Cardiovascular Assessment Panel, Serum High CPK Creatine Phosphokinase 200 U/L 26-192 U/L [facility]: 8[address] [facility] Normal CK-mb Value Mass 2.5 NG/mL <3.6 NG/m L [facility]: [address] [place] [address] Normal mb/CK Relative Index 1.25 < or =4 [facility]: [address] [place] [address] Normal Troponin I < 0.02 NG/mL < 0.10 NG/mL [facility]: 0 [facility] 04/21/2021 Hepatic Function Panel, Serum Normal AST/SG OT 22 U/L 7-37 U/L [facility]: 0 [facility] Normal ALT/SGPT 31 U/L 12-78 U/L [facility]: 0 [facility] Normal Alkaline Phosphatase 54 U/L 45-117 U /L [facility]: 0 [facility] Normal Bilirubin,total 0.4 mg/dL 0.2-1.0 mg /dL [facility]: 0 [facility] Normal Bilirubin,direct 0.1 mg/dL 0.0-0.2 m g/dL [facility]: [address] [place] [address] Low Total Protein 6.1 gm/dL 6.4-8.2 gm/d L [facility]: [address] [place] [address] Normal Albumin 3.4 gm/dL 3.2-5.2 gm/dL Ne l [facility]: [address] [place] [address] Normal Albumin/globulin Ratio 1.3 1.2-2. 2 [facility]: [address] [place] [address] 04/21/2021 BMP, Serum or Plasma Normal Glucose, Fastin g 85 mg/dL 70-100 mg/dL [facility]: 83 0 [facility] Normal Blood Urea Nitrogen 11 mg/dL 7-18 mg /dL [facility]: [address] [place] [address] Normal Creatinine for GFR 0.78 mg/dL 0.55-1 .30 mg/dL [facility]: [address] [place] [address] Normal Glomerular Filtration Rate > 60.0 >5 8 [facility]: [address] [place] [address] Normal Sodium Level 141 mEq/L 136-145 mEq/L [facility]: [address] [place] [address] Normal Potassium Serum 4.0 mEq/L 3.5-5.1 mE q/L [facility]: [address] [place] [address] High Chloride Level 112 mEq/L 98-107 mEq/ L [facility]: [address] [place] [address] Normal Carbon Dioxide Level 23 mEq/L 21-32 mEq/L [facility]: [address] [place] [address] Low Anion Gap 6 mEq/L 8-16 mEq/L [facility]: [address] [place] [address] Low Calcium Level 7.8 mg/dL 8.5-10.1 mg/ dL [facility]: [address] [place] [address] 04/21/2021 Pro BNP (Pro B-type Natriuretic Peptide), Serum or Plasma High Nt-pro BNP 3656 pg/mL <125 pg/mL [facility]: [address] [place] [address] 04/21/2021 TSH, Serum or Plasma High Thyroid Stimulating Hormone 6.040 uIU/mL 0.358-3.740 uIU/mL [facility] nter: [address] [place] [address] 04/21/2021 Respiratory Virus Panel NASOPHARYNX No observ ation recorded. [facility]: [address] [place] [address] 04/21/2021 Cardiovascular Assessment Panel, Serum High CPK Creatine Phosphokinase 252 U/L 26-192 U/L [facility]: [address] [place] [address] Normal CK-mb Value Mass 1.6 NG/mL <3.6 NG/m L [facility]: [address] [place] [address] Normal mb/CK Relative Index 0.63 < or =4 [facility]: [address] [place] [address] Normal Troponin I < 0.02 NG/mL < 0.10 NG/mL [facility]: [address] [place] [address] 04/21/2021 Thyroid Panel, Serum Normal T Uptake 31 % 30 -39 % [facility]: [address] [place] [address] Normal Thyroxine (T4) 11.2 ug/dL 4.5-12.0 u g/dL [facility]: [address] [place] [address] Normal Free Thyroxine Index 3.5 % 1.3-4.8 % [facility]: [address] [place] [address] Normal Thyroid Stimulating Hormone 3. 720 uIU/mL 0.358-3.740 uIU/mL [facility]: [address] [place] [address] 04/21/2021 Cardiovascular Assessment Panel, Serum High CPK Creatine Phosphokinase 223 U/L 26-192 U/L [facility]: [address] [place] [address] Normal CK-mb Value Mass 1.6 NG/mL <3.6 NG/m L [facility]: [address] [place] [address] Normal mb/CK Relative Index 0.72 < or =4 [facility]: [address] [place] [address] Normal Troponin I < 0.02 NG/mL < 0.10 NG/mL [facility]: 830 [facility] 04/21/2021 Ionized Calcium Low Ionized Calcium 4.3 mg/dL 4.5-5.3 mg/dL [facility]: 830 [facility] 04/21/2021 Magnesium, Serum or Plasma Normal Magnesium Level 1.9 mg/dL 1.8-2.4 mg/dL [facility]: 83 0 [facility] 04/21/2021 BMP, Serum or Plasma High Glucose, Fastin g 124 mg/dL 70-100 mg/dL [facility]: 83 0 [facility] Normal Blood Urea Nitrogen 13 mg/dL 7-18 mg /dL [facility]: 0 [facility] Normal Creatinine for GFR 1.07 mg/dL 0.55-1 .30 mg/dL [facility]: 0 [facility] Normal Glomerular Filtration Rate > 60.0 >5 8 [facility]: 830 [facility] Normal Sodium Level 141 mEq/L 136-145 mEq/L [facility]: 0 [facility] Normal Potassium Serum 3.7 mEq/L 3.5-5.1 mE q/L [facility]: 830 [facility] Normal Chloride Level 105 mEq/L 98-107 mEq/ L [facility]: 0 [facility] Normal Carbon Dioxide Level 27 mEq/L 21-32 mEq/L [facility]: 830 [facility] Normal Anion Gap 9 mEq/L 8-16 mEq/L [facility]: 830 [facility] Normal Calcium Level 8.8 mg/dL 8.5-10.1 mg/ dL [facility]: 830 [facility] 04/16/2021 CBC W/ Auto Diff Normal White Blood Count 6.0 10 4.0-10.0 10 [facility]: 0 [facility] Normal Red Blood Count 4.24 10 4.00-5.40 10 [facility]: 830 [facility] Normal Hemoglobin 12.0 g/dL 12.0-15.5 g/dL [facility]: 830 [facility] Normal Hematocrit 38.6 % 36.0-47.0 % [facility]: 830 [facility] Normal Mean Corpuscular Volume 91.0 fL 80.0 -96.0 fL [facility]: [address] [place] [address] Normal Mean Corpuscular Hemoglobin 28.3 pg 27.0-33.0 pg [facility]: [address] [place] [address] Low Mean Corpuscular HGB Conc 31.1 g/dL 32.0-36.5 g/dL [facility]: [address] [place] [address] High Red Cell Distribution Width 14.6 % 1 1.5-14.5 % [facility]: [address] [place] [address] Normal Platelet Count, Automated 242 10 150 -450 10 [facility]: 830 [facility] Normal Neutrophils % 54.8 % 36.0-66.0 % [facility]: 830 [facility] Normal Lymph % 31.9 % 24.0-44.0 % [facility]: 0 [facility] High [place] % 9.3 % 2.0-8.0 % [facility]: 830 [facility] Normal Eos % 2.8 % 0.0-3.0 % [facility]: 830 [facility] Normal Baso % 0.7 % 0.0-1.0 % [facility]: 0 [facility] Normal Immature Granulocyte % 0.5 % 0-3.0 % [facility]: [address] [place] [address] Normal Nucleated Red Blood Cell % 0.0 % 0- 0 % [facility]: 0 [facility] Normal Neutrophils # 3.3 10 1.5-8.5 10 Ne [facility]: 830 [facility] Normal Lymph # 1.9 10 1.5-5.0 10 [facility]: 830 [facility] Normal [place] # 0.6 10 0.0-0.[address] [facility]: 830 [facility] Normal Eos # 0.2 10 0.0-0.5 10 [facility]: 830 [facility] Normal Baso # 0.0 10 0.0-0.[address] [facility]: 830 [facility] 04/16/2021 CMP, Serum or Plasma Normal Glucose, Fastin g 86 mg/dL 70-100 mg/dL [facility]: 83 0 [facility] Normal Blood Urea Nitrogen 13 mg/dL 7-18 mg /dL [facility]: 0 [facility] Normal Creatinine for GFR 0.79 mg/dL 0.55-1 .30 mg/dL [facility]: 0 [facility] Normal Glomerular Filtration Rate > 60.0 >5 8 [facility]: 830 [facility] Normal Sodium Level 142 mEq/L 136-145 mEq/L [facility]: 0 [facility] Normal Potassium Serum 3.7 mEq/L 3.5-5.1 mE q/L [facility]: 0 [facility] High Chloride Level 110 mEq/L 98-107 mEq/ L [facility]: 0 [facility] Normal Carbon Dioxide Level 28 mEq/L 21-32 mEq/L [facility]: 0 [facility] Low Anion Gap 4 mEq/L 8-16 mEq/L [facility]: 0 [facility] Low Calcium Level 8.3 mg/dL 8.5-10.1 mg/ dL [facility]: 830 [facility] Normal AST/SGOT 15 U/L 7-37 U/L [facility]: 830 [facility] Normal ALT/SGPT 21 U/L 12-78 U/L [facility]: 830 [facility] Normal Alkaline Phosphatase 59 U/L 45-117 U /L [facility]: 0 [facility] Normal Bilirubin,total 0.4 mg/dL 0.2-1.0 mg /dL [facility]: 0 [facility] Normal Total Protein 6.4 gm/dL 6.4-8.2 gm/d L [facility]: 830 [facility] Normal Albumin 3.6 gm/dL 3.2-5.2 gm/dL Ne [facility]: [address] [place] [address] Normal Albumin/globulin Ratio 1.3 1.2-2. 2 [facility]: 0 [facility] 04/16/2021 TIBC (Total Iron-binding Capacity), Serum Normal Iron (Fe) 85 ug/dL 50-170 ug/dL [facility] nter: 0 [facility] Normal Total Iron Binding Capacity 308 ug/d L 250-450 ug/dL [facility]: 0 [facility] Normal Percent Saturation 27.6 % 13.2-45.0 % [facility]: 0 [facility] 04/16/2021 Vitamin B12, Serum Low Vitamin B12 Level 245 pg/mL 247-911 pg/mL [facility]: 83 0 [facility] 04/16/2021 Folate, Serum Normal Folate 6.9 NG/mL >5.4 NG/ mL [facility]: 0 [facility] 04/16/2021 Ferritin, Serum or Plasma Normal Ferritin 45 NG/mL 8-252 NG/mL [facility]: [address] [place] [address] 04/16/2021 Lupus Anticoagulant, Plasma Normal PTT Lupus Type Anticoag Screen 1.1 0-1.[address] [facility]: [address] [place] [address] 04/16/2021 Beta-2 Glycoprotein 1 Kelsea Balbir Normal Beta-2 Glycoprotein I Kelsea IgG <9 0-[address] [facility]: 830 [facility] Normal Beta-2 Glycoprotein I Kelsea IgA <9 0-25 [facility]: [address] [place] [address] Normal Beta-2 Glycoprotein I Kelsea IgM <9 0-32 [facility]: [address] [place] [address] 04/16/2021 Anti Thrombin 3 Panel (Ag/AC) Normal Anti Thrombin 3 Funct Activity 107 % 75-135 % [facility]: [address] [place] [address] Normal Anti Thrombin 3 Antigen Immuno 87 % 72-124 % [facility]: [address] [place] [address] 04/16/2021 Protein C Functional Activity Normal Protein C Functional Activity 112 % 73-180 % [facility]: [address] [place] [address] 04/16/2021 Protein S Activity, Plasma Normal Protein S Functional Activity 109 % 63-140 % [facility]: [address] [place] [address] 04/16/2021 Factor II Prothrombin Gene DNA Normal Factor II Prothrombin Gene an . [facility]: [address] [place] [address] 04/16/2021 Factor 5 Leiden Profile Normal Factor v Lei den for [facility] . [facility]: [address] [place] [address] 04/16/2021 Anti-cardiolipin Antibodies Normal Cardiolipin IgA Antibody <9 apl U/mL 0-11 apl U/mL [facility] nter: [address] [place] [address] Normal Cardiolipin IgG Antibody <9 gpl U/mL 0-14 gpl U/mL [facility]: 0 [facility] Normal Cardiolipin IgM Antibody <9 mpl U/mL 0-12 mpl U/mL [facility]: [address] [place] [address] 10/26/2020 CMP, Serum or Plasma High Glucose, Fastin g 102 mg/dL 70-100 mg/dL [facility]: 83 0 [facility] Normal Blood Urea Nitrogen 15 mg/dL 7-18 mg /dL [facility]: 0 [facility] Normal Creatinine for GFR 0.94 mg/dL 0.55-1 .30 mg/dL [facility]: 0 [facility] Normal Glomerular Filtration Rate > 60.0 >6 0 [facility]: 830 [facility] Normal Sodium Level 142 mEq/L 136-145 mEq/L [facility]: 0 [facility] Normal Potassium Serum 3.9 mEq/L 3.5-5.1 mE q/L [facility]: 830 [facility] Normal Chloride Level 106 mEq/L 98-107 mEq/ L [facility]: [address] [place] [address] Normal Carbon Dioxide Level 29 mEq/L 21-32

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
--- OUTSIDE RECORDS SUMMARY | 2021-08-04 14:41 | CCD ---
Author Author [facility] Organization [facility] Address Unknown Phone Unavailable Care Team Providers Care Belt Weaver Name Role Phone Liliam Ennis Unavailable PROBLEMS Type Condition ICD9-CM Code [id number] Code Onset Dates Condition S tatus W/U Status Risk SNOMED Code Notes Problem Generalized pain R52 Active confirmed 829 70135 Problem Cervical high risk HPV (human papillomavirus) test positiv e R87.810 Active confirmed 170079785 Problem Cervicalgia M54.2 Active confirmed 62485376 Problem Cervical disc disorder with radiculopath y, unspecified cervical region M50.10 Active confirmed 740668469 Problem Myalgia, other site M79.18 Active confirmed 99808176 Problem Cervical radiculopathy M54.12 Active confirmed 65027072 Problem Cervical disc displacement M50.20 Active confirmed 252138488 Problem Fibromyalgia M79.7 Active confirmed 8482080 05 Problem Chronic migraine without aur a without status migrainosus, not intractable G43.709 Active confirmed 350504934 Problem Cervical disc disorder with radiculopathy of cer vicothoracic region M50.13 Active confirmed 453566771 Problem Protrusion of cervical intervertebral disc M50.20 Active confirmed 631147228 Problem Osteoarthritis of cervical s pine, unspecified spinal osteoarthritis complication status M47.812 Active confirmed 928912920 Problem Lumbago of lumbar region with sciatica M54.40 A ctive confirmed 344235111 Problem Body mass index [BMI]40.0-44.9, adult Z68.41 Ac tive confirmed 889704259 Problem Tobacco use disorder F17.200 Active confirmed 144801642 Problem Morbid (severe) obesity due to excess calories E66 .01 Active confirmed 223247628 Problem Urge incontinence N39.41 Active confirmed 87 304592 Problem Cervical high risk human papillomavirus (HPV) DN A test positive R87.810 Active confirmed 382925543091753 Problem Overactive bladder N32.81 Active confirmed 7 67109200 Problem LGSIL on Pap smear of cervix R87.612 Active confirm ed 139224095 Problem Myalgia M79.1 Active confirmed 88485457 Problem Abnormal uterine bleeding (AUB) N93.9 Active confirmed 40319736735772 Problem Papanicolaou smear of cervix with positive high risk human papilloma virus (HPV) test R87.810 Active confirmed 503870954 Problem Congestive heart failure, un specified HF chronicity, unspecified heart failure type I50.9 Active confirmed 17641069 Problem Obesity, unspecified classif ication, unspecified obesity type, unspecified whether serious comorbidity present E66.9 Ac tive confirmed 330992718 ALLERGIES Allergen (clinical drug ingredient) Drug/Non Drug Allergy do cumented on EMR Reaction Allergy Type Onset Date Status trazodone TraZODone HCl([facility] Code:[address]-10) severe anger Drug Al lergy Active Prednison severe anger Drug Allergy Active Penicillin (For Allergies Use Only) pt unsure Drug Allerg y Active ENCOUNTERS from 1981 to 2021-05-29 Encounter Location Date Provider Diagnosis [facility] [phone] [place] [address] May, Liliam Joelc IMMUNIZATIONS No Information SOCIAL HISTORY Tobacco Use: Social History Observation Description Date Details (start date - stop date) Never Smoker Sex Assigned At : Social History Observation Description Sex Assigned At Unknown Language: Question Answer Notes Languages spoken: American Anabaptism: Question Answer Notes Anabaptism 33 None Alcohol Screening: Question Answer Notes [...] REASON FOR REFERRAL No Information VITAL SIGNS No information MEDICATIONS Medication SIG (Take, Route, Frequency, Duration) [...] mgs 1 cap orally Daily Active Nystatin 359854 UNIT/GM 1 application to affected ar ea [...] day for 30 day(s) 1 Apr, Active Ideal 5-325 MG 1 tablet as needed Orally [...] 12 hrs as needed Not-Taking Vitamin D 84560 U 1 tablet Orally once a week Active PROCEDURES No Information RESULTS No Results REASON FOR VISIT pelvic mri MEDICAL (GENERAL) HISTORY Type Description Date Medical [...] lasik both eyes Surgical History cardiac catheterization 1997 Surgical History D&C x2 1998,1999 Surgical History [...] No Information FUNCTIONAL STATUS No Information ASSESSMENTS No Information PLAN OF TREATMENT Medication Medication Name Sig Start Date Stop Date Myrbetriq 50 MG 1 tablet Orally Once a day for 30 day(s) Apr, Next Appt Details Provider Name:Gerald Kumari, 01:00:00 PM, [address], , [place], [address], Provider Name:Luis Felipe Velasco, 2021-05-16 7 02:00:00 PM, [address], , [place], [address], Provider Name:Pankaj Aleman, 2021-07-12 02:00:00 PM, [address], , [place], [address], Insurance Providers Payer Name Payer Address Payer Phone Insured Name Patient Relati onship to Insured Coverage Start Date Coverage End Date [facility] [address] [facility] [phone] LILIAM JACKSON self [facility] [address] [address] [facility] [phone] LILIAM JACKSON self MEDICARE Part A and B [address] [facility] [phone] [phone] LILIAM JACKSON self
--- OUTSIDE RECORDS SUMMARY | 2021-08-04 14:41 | CCD ---
Author Organization Unknown Address [address] [place] [id number] Phone [phone] Care Team Providers Care Bargeman Name Role Phone Ronni Adams Unavailable Unavailable [...] FOR SHORTNESS OF BREATH Active Not available Arnuity Ellipta 100 mcg/actuation powder for inhalation Active Not available baclofen 10 mg tablet [...] BY MOUTH EVERY DAY Active Not available fluticasone propionate 50 mcg/actuation [...] not avai lable 10/03/2020 XR, Lumbosacral Spine [facility] [address] [place] [address] ( (Work Place) Notes: Lasix 2007, Heart Cath 1997 as a result of tachycardia, 2 D & C, Leep Apr 2018 Results Lab Results Date Name Specimen Result Interpretation Description Value Range Status Address 05/02/2021 BMP, Serum or Plasma Blood venous Normal Glucose 92 mg/dL 65-99 mg/dL Final [facility]: [address] [facility] Blood venous Normal Urea Nitrogen (BUN) 14 mg/dL 7-25 mg/dL Final [facility]: [address] [facility] Blood venous Normal Creatinine 1.00 mg/dL 0.50-1. 10 mg/dL Final [facility]: [address] [facility] Blood venous Normal eGFR Non-afr. Bhutanese 7 0 mL/min/1.73m2 > or = 60 mL/min/1.73m2 Final [facility]: [address] , [place] Blood venous Normal eGFR 82 mL/min/1.73m2 > or = 60 mL/min/1.73m2 Final [facility]: [address] [facility] Blood venous BUN/creatinine Ratio not applicable (calc) 6-22 (calc) Final [facility]: [address] [facility] Blood venous Normal Sodium 139 mmol/L 135-146 mmo l/L Final [facility]: [address] [facility] Blood venous Low Potassium 3.4 mmol/L 3.5-5.3 mmol/L [facility]: [address] [facility] Blood venous Low Chloride 96 mmol/L 98-110 mmo l/L Final [facility]: [address] [facility] Blood venous High Carbon Dioxide 34 mmol/L 20-3 2 mmol/L [facility]: [address] [facility] Blood venous Normal Calcium 9.5 mg/dL 8.6-10.2 mg /dL Final [facility]: [address] [facility] 04/24/2021 Cbc High White Blood Count 13.8 10 4.0-10 .0 10 [facility]: 0 [facility] Normal Red Blood Count 4.57 10 4.00-5.40 10 [facility]: [address] [facility] Normal Hemoglobin 13.1 g/dL 12.0-15.5 g/dL [facility]: [address] [facility] Normal Hematocrit 41.2 % 36.0-47.0 % [facility]: 8[address] [facility] Normal Mean Corpuscular Volume 90.2 fL 80.0 -96.0 fL [facility]: 8[address] [facility] Normal Mean Corpuscular Hemoglobin 28.7 pg 27.0-33.0 pg [facility]: [address] [facility] Low Mean Corpuscular HGB Conc 31.8 g/dL 32.0-36.5 g/dL [facility]: 0 [facility] High Red Cell Distribution Width 15.1 % 1 1.5-14.5 % [facility]: 0 [facility] Normal Platelet Count, Automated 409 10 150 -450 10 [facility]: 0 [facility] Normal Nucleated Red Blood Cell % 0.0 % 0- 0 % [facility]: 830 [facility] 04/24/2021 BMP, Serum or Plasma High Glucose, Fastin g 111 mg/dL 70-100 mg/dL [facility]: 83 0 [facility] High Blood Urea Nitrogen 32 mg/dL 7-18 mg /dL [facility]: [address] [place] [address] Normal Creatinine for GFR 1.07 mg/dL 0.55-1 .30 mg/dL [facility]: 0 [facility] Normal Glomerular Filtration Rate > 60.0 >5 8 [facility]: [address] [facility] Normal Sodium Level 136 mEq/L 136-145 mEq/L [facility]: 0 [facility] Normal Potassium Serum 3.6 mEq/L 3.5-5.1 mE q/L [facility]: 0 [facility] Low Chloride Level 96 mEq/L 98-107 mEq/L [facility]: 0 [facility] Normal Carbon Dioxide Level 30 mEq/L 21-32 mEq/L [facility]: 8[address] [facility] Normal Anion Gap 10 mEq/L 8-16 mEq/L [facility]: 0 [facility] Normal Calcium Level 9.5 mg/dL 8.5-10.1 mg/ dL [facility]: 0 [facility] 04/24/2021 Magnesium, Serum or Plasma High Magnesium Level 2.5 mg/dL 1.8- 2.4 mg/dL [facility]: 83 0 [facility] 04/23/2021 BMP, Serum or Plasma High Glucose, Fastin g 137 mg/dL 70-100 mg/dL [facility]: 83 0 [facility] High Blood Urea Nitrogen 28 mg/dL 7-18 mg /dL [facility]: 8[address] [facility] Normal Creatinine for GFR 1.14 mg/dL 0.55-1 .30 mg/dL [facility]: [address] [facility] Low Glomerular Filtration Rate 56.2 >5 8 [facility]: 830 [facility] Normal Sodium Level 139 mEq/L 136-145 mEq/L [facility]: 830 [facility] Low Potassium Serum 3.3 mEq/L 3.5-5.1 mE q/L [facility]: 830 [facility] Normal Chloride Level 102 mEq/L 98-107 mEq/ L [facility]: 8[address] [facility] Normal Carbon Dioxide Level 30 mEq/L 21-32 mEq/L [facility]: 830 [facility] Low Anion Gap 7 mEq/L 8-16 mEq/L [facility]: 830 [facility] Normal Calcium Level 8.5 mg/dL 8.5-10.1 mg/ dL [facility]: 8[address] [facility] 04/23/2021 Magnesium, Serum or Plasma Normal Magnesium Level 2.1 mg/dL 1.8-2.4 mg/dL [facility]: 83 0 [facility] 04/23/2021 Ionized Calcium Low Ionized Calcium 4.2 mg/dL 4.5-5.3 mg/dL [facility]: 8[address] [facility] 04/23/2021 BMP, Serum or Plasma High Glucose, Fastin g 233 mg/dL 70-100 mg/dL [facility]: 83 0 [facility] High Blood Urea Nitrogen 32 mg/dL 7-18 mg /dL [facility]: 8[address] [facility] High Creatinine for GFR 1.34 mg/dL 0.55-1 .30 mg/dL [facility]: 830 [facility] Low Glomerular Filtration Rate 46.6 >5 8 [facility]: 830 [facility] Normal Sodium Level 137 mEq/L 136-145 mEq/L [facility]: 830 [facility] Normal Potassium Serum 3.5 mEq/L 3.5-5.1 mE q/L [facility]: 8[address] [facility] Low Chloride Level 97 mEq/L 98-107 mEq/L [facility]: 830 [facility] Normal Carbon Dioxide Level 29 mEq/L 21-32 mEq/L [facility]: 830 [facility] Normal Anion Gap 11 mEq/L 8-16 mEq/L [facility]: 0 [facility] Normal Calcium Level 8.6 mg/dL 8.5-10.1 mg/ dL [facility]: 8[address] [facility] 04/23/2021 Magnesium, Serum or Plasma Normal Magnesium Level 2.2 mg/dL 1.8-2.4 mg/dL [facility]: 83 0 [facility] 04/22/2021 Ionized Calcium Low Ionized Calcium 4.1 mg/dL 4.5-5.3 mg/dL [facility]: 0 [facility] 04/22/2021 BMP, Serum or Plasma High Glucose, Fastin g 155 mg/dL 70-100 mg/dL [facility]: 83 0 [facility] Normal Blood Urea Nitrogen 15 mg/dL 7-18 mg /dL [facility]: 8[address] [facility] Normal Creatinine for GFR 0.99 mg/dL 0.55-1 .30 mg/dL [facility]: 8[address] [facility] Normal Glomerular Filtration Rate > 60.0 >5 8 [facility]: 830 [facility] Normal Sodium Level 140 mEq/L 136-145 mEq/L [facility]: 830 [facility] Low Potassium Serum 3.4 mEq/L 3.5-5.1 mE q/L [facility]: 830 [facility] Normal Chloride Level 104 mEq/L 98-107 mEq/ L [facility]: 8[address] [facility] Normal Carbon Dioxide Level 26 mEq/L 21-32 mEq/L [facility]: 830 [facility] Normal Anion Gap 10 mEq/L 8-16 mEq/L [facility]: 8[address] [facility] Normal Calcium Level 8.7 mg/dL 8.5-10.1 mg/ dL [facility]: 830 [facility] 04/22/2021 Magnesium, Serum or Plasma Normal Magnesium Level 2.0 mg/dL 1.8-2.4 mg/dL [facility]: 83 0 [facility] 04/22/2021 Pro BNP (Pro B-type Natriuretic Peptide), Serum or Plasma High Nt-pro BNP 5559 pg/mL <125 pg/mL [facility]: 830 [facility] 04/22/2021 Ionized Calcium Low Ionized Calcium 4.4 mg/dL 4.5-5.3 mg/dL [facility]: 830 [facility] 04/22/2021 BMP, Serum or Plasma High Glucose, Fastin g 263 mg/dL 70-100 mg/dL [facility]: 83 0 [facility] High Blood Urea Nitrogen 20 mg/dL 7-18 mg /dL [facility]: 830 [facility] Normal Creatinine for GFR 1.13 mg/dL 0.55-1 .30 mg/dL [facility]: 8[address] [facility] Low Glomerular Filtration Rate 56.8 >5 8 [facility]: 830 [facility] Normal Sodium Level 138 mEq/L 136-145 mEq/L [facility]: 830 [facility] Low Potassium Serum 3.2 mEq/L 3.5-5.1 mE q/L [facility]: 8[address] [facility] Normal Chloride Level 102 mEq/L 98-107 mEq/ L [facility]: 830 [facility] Normal Carbon Dioxide Level 26 mEq/L 21-32 mEq/L [facility]: 8[address] [facility] Normal Anion Gap 10 mEq/L 8-16 mEq/L [facility]: 830 [facility] Normal Calcium Level 9.0 mg/dL 8.5-10.1 mg/ dL [facility]: 830 [facility] 04/22/2021 Magnesium, Serum or Plasma Normal Magnesium Level 2.0 mg/dL 1.8-2.4 mg/dL [facility]: 83 0 [facility] 04/22/2021 BMP, Serum or Plasma High Glucose, Fastin g 172 mg/dL 70-100 mg/dL [facility]: 83 0 [facility] High Blood Urea Nitrogen 21 mg/dL 7-18 mg /dL [facility]: 830 [facility] Normal Creatinine for GFR 1.22 mg/dL 0.55-1 .30 mg/dL [facility]: 830 [facility] Low Glomerular Filtration Rate 52.0 >5 8 [facility]: 830 [facility] Normal Sodium Level 140 mEq/L 136-145 mEq/L [facility]: 830 [facility] Low Potassium Serum 3.0 mEq/L 3.5-5.1 mE q/L [facility]: 830 [facility] Normal Chloride Level 101 mEq/L 98-107 mEq/ L [facility]: 8[address] [facility] Normal Carbon Dioxide Level 29 mEq/L 21-32 mEq/L [facility]: 830 [facility] Normal Anion Gap 10 mEq/L 8-16 mEq/L [facility]: 830 [facility] Normal Calcium Level 8.9 mg/dL 8.5-10.1 mg/ dL [facility]: 830 [facility] 04/22/2021 Magnesium, Serum or Plasma Normal Magnesium Level 2.0 mg/dL 1.8-2.4 mg/dL [facility]: 83 0 [facility] 04/21/2021 CBC W/ Auto Diff Normal White Blood Count 7.9 10 4.0-10.0 10 [facility]: 830 [facility] Low Red Blood Count 3.64 10 4.00-5.40 10 [facility]: 830 [facility] Low Hemoglobin 10.5 g/dL 12.0-15.5 g/dL [facility]: 8[address] [facility] Low Hematocrit 33.5 % 36.0-47.0 % [facility]: 8[address] [facility] Normal Mean Corpuscular Volume 92.0 fL 80.0 -96.0 fL [facility]: 8[address] [facility] Normal Mean Corpuscular Hemoglobin 28.8 pg 27.0-33.0 pg [facility]: 8[address] [facility] Low Mean Corpuscular HGB Conc 31.3 g/dL 32.0-36.5 g/dL [facility]: 8[address] [facility] High Red Cell Distribution Width 15.0 % 1 1.5-14.5 % [facility]: 8[address] [facility] Normal Platelet Count, Automated 256 10 150 -450 10 [facility]: 8[address] [facility] High Neutrophils % 70.1 % 36.0-66.0 % [facility]: 8[address] [facility] Low Lymph % 19.7 % 24.0-44.0 % [facility]: 830 [facility] Normal [place] % 7.0 % 2.0-8.0 % [facility]: 830 [facility] Normal Eos % 2.3 % 0.0-3.0 % [facility]: 8[address] [facility] Normal Baso % 0.5 % 0.0-1.0 % [facility]: 830 [facility] Normal Immature Granulocyte % 0.4 % 0-3.0 % [facility]: [address] [place] [address] Normal Nucleated Red Blood Cell % 0.0 % 0- 0 % [facility]: 0 [facility] Normal Neutrophils # 5.6 10 1.5-8.5 10 [facility]: 8[address] [facility] Normal Lymph # 1.6 10 1.5-5.0 10 [facility]: 8[address] [facility] Normal [place] # 0.6 10 0.0-0.8 10 [facility]: 0 [facility] Normal Eos # 0.2 10 0.0-0.5 10 [facility]: 0 [facility] Normal Baso # 0.0 10 0.0-0.2 10 [facility]: [address] [place] [address] 04/21/2021 Cardiovascular Assessment Panel, Serum High CPK Creatine Phosphokinase 200 U/L 26-192 U/L [facility]: [address] [place] [address] Normal CK-mb Value Mass 2.5 NG/mL <3.6 NG/m L [facility]: [address] [place] [address] Normal mb/CK Relative Index 1.25 < or =4 [facility]: [address] [place] [address] Normal Troponin I < 0.02 NG/mL < 0.10 NG/mL [facility]: 0 [facility] 04/21/2021 Hepatic Function Panel, Serum Normal AST/SG OT 22 U/L 7-37 U/L [facility]: 0 [facility] Normal ALT/SGPT 31 U/L 12-78 U/L [facility]: 0 [facility] Normal Alkaline Phosphatase 54 U/L 45-117 U /L [facility]: 0 [facility] Normal Bilirubin,total 0.4 mg/dL 0.2-1.0 mg /dL [facility]: 8[address] [facility] Normal Bilirubin,direct 0.1 mg/dL 0.0-0.2 m g/dL [facility]: 0 [facility] Low Total Protein 6.1 gm/dL 6.4-8.2 gm/d L [facility]: 0 [facility] Normal Albumin 3.4 gm/dL 3.2-5.2 gm/dL Ne l [facility]: 0 [facility] Normal Albumin/globulin Ratio 1.3 1.2-2. 2 [facility]: 830 [facility] 04/21/2021 BMP, Serum or Plasma Normal Glucose, Fastin g 85 mg/dL 70-100 mg/dL [facility]: 83 0 [facility] Normal Blood Urea Nitrogen 11 mg/dL 7-18 mg /dL [facility]: [address] [place] [address] Normal Creatinine for GFR 0.78 mg/dL 0.55-1 .30 mg/dL [facility]: [address] [place] [address] Normal Glomerular Filtration Rate > 60.0 >5 8 [facility]: 0 [facility] Normal Sodium Level 141 mEq/L 136-145 mEq/L [facility]: [address] [place] [address] Normal Potassium Serum 4.0 mEq/L 3.5-5.1 mE q/L [facility]: 0 [facility] High Chloride Level 112 mEq/L 98-107 mEq/ L [facility]: 0 [facility] Normal Carbon Dioxide Level 23 mEq/L 21-32 mEq/L [facility]: 0 [facility] Low Anion Gap 6 mEq/L 8-16 mEq/L [facility]: [address] [place] [address] Low Calcium Level 7.8 mg/dL 8.5-10.1 mg/ dL [facility]: 0 [facility] 04/21/2021 Pro BNP (Pro B-type Natriuretic Peptide), Serum or Plasma High Nt-pro BNP 3656 pg/mL <125 pg/mL [facility]: [address] [place] [address] 04/21/2021 TSH, Serum or Plasma High Thyroid Stimulating Hormone 6.040 uIU/mL 0.358-3.740 uIU/mL [facility]: [address] [place] [address] 04/21/2021 Respiratory Virus Panel NASOPHARYNX No observ ation recorded. [facility]: [address] [place] [address] 04/21/2021 Cardiovascular Assessment Panel, Serum High CPK Creatine Phosphokinase 252 U/L 26-192 U/L [facility]: [address] [place] [address] Normal CK-mb Value Mass 1.6 NG/mL <3.6 NG/m L [facility]: [address] [place] [address] Normal mb/CK Relative Index 0.63 < or =4 [facility]: [address] [place] [address] Normal Troponin I < 0.02 NG/mL < 0.10 NG/mL [facility]: [address] [place] [address] 04/21/2021 Thyroid Panel, Serum Normal T Uptake 31 % 30 -39 % [facility]: [address] [place] [address] Normal Thyroxine (T4) 11.2 ug/dL 4.5-12.0 u g/dL [facility]: [address] [place] [address] Normal Free Thyroxine Index 3.5 % 1.3-4.8 % [facility]: [address] [place] [address] Normal Thyroid Stimulating Hormone 3. 720 uIU/mL 0.358-3.740 uIU/mL [facility]: [address] [place] [address] 04/21/2021 Cardiovascular Assessment Panel, Serum High CPK Creatine Phosphokinase 223 U/L 26-192 U/L [facility]: [address] [place] [address] Normal CK-mb Value Mass 1.6 NG/mL <3.6 NG/m L [facility]: [address] [place] [address] Normal mb/CK Relative Index 0.72 < or =4 [facility]: 830 [facility] Normal Troponin I < 0.02 NG/mL < 0.10 NG/mL [facility]: 830 [facility] 04/21/2021 Ionized Calcium Low Ionized Calcium 4.3 mg/dL 4.5-5.3 mg/dL [facility]: 830 [facility] 04/21/2021 Magnesium, Serum or Plasma Normal Magnesium Level 1.9 mg/dL 1.8-2.4 mg/dL [facility]: 83 0 [facility] 04/21/2021 BMP, Serum or Plasma High Glucose, Fastin g 124 mg/dL 70-100 mg/dL [facility]: 83 0 [facility] Normal Blood Urea Nitrogen 13 mg/dL 7-18 mg /dL [facility]: 0 [facility] Normal Creatinine for GFR 1.07 mg/dL 0.55-1 .30 mg/dL [facility]: 830 [facility] Normal Glomerular Filtration Rate > 60.0 >5 8 [facility]: 830 [facility] Normal Sodium Level 141 mEq/L 136-145 mEq/L [facility]: 830 [facility] Normal Potassium Serum 3.7 mEq/L 3.5-5.1 mE q/L [facility]: 830 [facility] Normal Chloride Level 105 mEq/L 98-107 mEq/ L [facility]: 8[address] [facility] Normal Carbon Dioxide Level 27 mEq/L 21-32 mEq/L [facility]: 8[address] [facility] Normal Anion Gap 9 mEq/L 8-16 mEq/L [facility]: 830 [facility] Normal Calcium Level 8.8 mg/dL 8.5-10.1 mg/ dL [facility]: 830 [facility] 04/16/2021 CBC W/ Auto Diff Normal White Blood Count 6.0 10 4.0-10.0 10 [facility]: 830 [facility] Normal Red Blood Count 4.24 10 4.00-5.40 10 [facility]: 830 [facility] Normal Hemoglobin 12.0 g/dL 12.0-15.5 g/dL [facility]: 830 [facility] Normal Hematocrit 38.6 % 36.0-47.0 % [facility]: 830 [facility] Normal Mean Corpuscular Volume 91.0 fL 80.0 -96.0 fL [facility]: [address] [place] [address] Normal Mean Corpuscular Hemoglobin 28.3 pg 27.0-33.0 pg [facility]: [address] [place] [address] Low Mean Corpuscular HGB Conc 31.1 g/dL 32.0-36.5 g/dL [facility]: [address] [place] [address] High Red Cell Distribution Width 14.6 % 1 1.5-14.5 % [facility]: 830 [facility] Normal Platelet Count, Automated 242 10 150 -450 10 [facility]: 830 [facility] Normal Neutrophils % 54.8 % 36.0-66.0 % [facility]: 830 [facility] Normal Lymph % 31.9 % 24.0-44.0 % [facility]: 830 [facility] High [place] % 9.3 % 2.0-8.0 % [facility]: 830 [facility] Normal Eos % 2.8 % 0.0-3.0 % [facility]: 830 [facility] Normal Baso % 0.7 % 0.0-1.0 % [facility]: 0 [facility] Normal Immature Granulocyte % 0.5 % 0-3.0 % [facility]: 0 [facility] Normal Nucleated Red Blood Cell % 0.0 % 0- 0 % [facility]: 0 [facility] Normal Neutrophils # 3.3 10 1.5-8.5 10 [place] [facility]: 8[address] [facility] Normal Lymph # 1.9 10 1.5-5.0 10 [facility]: 830 [facility] Normal [place] # 0.6 10 0.0-0.8 10 [facility]: 8[address] [facility] Normal Eos # 0.2 10 0.0-0.5 10 [facility]: 830 [facility] Normal Baso # 0.0 10 0.0-0.2 10 [facility]: 830 [facility] 04/16/2021 CMP, Serum or Plasma Normal Glucose, Fastin g 86 mg/dL 70-100 mg/dL [facility]: 83 0 [facility] Normal Blood Urea Nitrogen 13 mg/dL 7-18 mg /dL [facility]: 0 [facility] Normal Creatinine for GFR 0.79 mg/dL 0.55-1 .30 mg/dL [facility]: 830 [facility] Normal Glomerular Filtration Rate > 60.0 >5 8 [facility]: 830 [facility] Normal Sodium Level 142 mEq/L 136-145 mEq/L [facility] [facility] 0 [facility] Normal Potassium Serum 3.7 mEq/L 3.5-5.1 mE q/L [facility]: 830 [facility] High Chloride Level 110 mEq/L 98-107 mEq/ L [facility]: 830 [facility] Normal Carbon Dioxide Level 28 mEq/L 21-32 mEq/L [facility]: 830 [facility] Low Anion Gap 4 mEq/L 8-16 mEq/L [facility]: 0 [facility] Low Calcium Level 8.3 mg/dL 8.5-10.1 mg/ dL [facility]: 830 [facility] Normal AST/SGOT 15 U/L 7-37 U/L [facility]: 830 [facility] Normal ALT/SGPT 21 U/L 12-78 U/L [facility]: 830 [facility] Normal Alkaline Phosphatase 59 U/L 45-117 U /L [facility]: 830 [facility] Normal Bilirubin,total 0.4 mg/dL 0.2-1.0 mg /dL [facility]: 830 [facility] Normal Total Protein 6.4 gm/dL 6.4-8.2 gm/d L [facility]: 830 [facility] Normal Albumin 3.6 gm/dL 3.2-5.2 gm/dL Ne l [facility]: 0 [facility] Normal Albumin/globulin Ratio 1.3 1.2-2. 2 [facility]: 830 [facility] 04/16/2021 TIBC (Total Iron-binding Capacity), Serum Normal Iron (Fe) 85 ug/dL 50-170 ug/dL [facility]: 830 [facility] Normal Total Iron Binding Capacity 308 ug/d L 250-450 ug/dL [facility]: 0 [facility] Normal Percent Saturation 27.6 % 13.2-45.0 % [facility]: 830 [facility] 04/16/2021 Vitamin B12, Serum Low Vitamin B12 Level 245 pg/mL 247-911 pg/mL [facility]: 83 0 [facility] 04/16/2021 Folate, Serum Normal Folate 6.9 NG/mL >5.4 NG/ mL [facility]: 0 [facility] 04/16/2021 Ferritin, Serum or Plasma Normal Ferritin 45 NG/mL 8-252 NG/mL [facility]: 0 [facility] 04/16/2021 Lupus Anticoagulant, Plasma Normal PTT Lupus Type Anticoag Screen 1.1 0-1.2 [facility]: 0 [facility] 04/16/2021 Beta-2 Glycoprotein 1 Kelsea Balbir Normal Beta-2 Glycoprotein I Kelsea IgG <9 0-20 [facility]: 830 [facility] Normal Beta-2 Glycoprotein I Kelsea IgA <9 0-25 [facility]: [address] [place] [address] Normal Beta-2 Glycoprotein I Kelsea IgM <9 0-32 [facility]: [address] [place] [address] 04/16/2021 Anti Thrombin 3 Panel (Ag/AC) Normal Anti Thrombin 3 Funct Activity 107 % 75-135 % [facility]: [address] [place] [address] Normal Anti Thrombin 3 Antigen Immuno 87 % 72-124 % [facility]: [address] [place] [address] 04/16/2021 Protein C Functional Activity Normal Protein C Functional Activity 112 % 73-180 % [facility]: [address] [place] [address] 04/16/2021 Protein S Activity, Plasma Normal Protein S Functional Activity 109 % 63-140 % [facility]: [address] [place] [address] 04/16/2021 Factor II Prothrombin Gene DNA Normal Factor II Prothrombin Gene an . [facility]: [address] [place] [address] 04/16/2021 Factor 5 Leiden Profile Normal Factor v Lei den for [facility] . [facility]: [address] [place] [address] 04/16/2021 Anti-cardiolipin Antibodies Normal Cardiolipin IgA Antibody <9 apl U/mL 0-11 apl U/mL [facility]: 0 [facility] Normal Cardiolipin IgG Antibody <9 gpl U/mL 0-14 gpl U/mL [facility]: [address] [place] [address] Normal Cardiolipin IgM Antibody <9 mpl U/mL 0-12 mpl U/mL [facility]: [address] [place] [address] 10/26/2020 CMP, Serum or Plasma High Glucose, Fastin g 102 mg/dL 70-100 mg/dL [facility]: 83 0 [facility] Normal Blood Urea Nitrogen 15 mg/dL 7-18 mg /dL [facility]: [address] [place] [address] Normal Creatinine for GFR 0.94 mg/dL 0.55-1 .30 mg/dL [facility]: [address] [place] [address] Normal Glomerular Filtration Rate > 60.0 >6 0 [facility]: [address] [place] [address] Normal Sodium Level 142 mEq/L 136-145 mEq/L [facility]: [address] [place] [address] Normal Potassium Serum 3.9 mEq/L 3.5-5.1 mE q/L [facility]: [address] [place] [address] Normal Chloride Level 106 mEq/L 98-107 mEq/ L [facility]: [address] [place] [address] Normal Carbon Dioxide Level 29 mEq/L 21-32 mEq/L [facility]: [address] [place] [address] Low Anion Gap 7 mEq/L 8-16 mEq/L [facility]: [address] [place] [address] Normal Calcium Level 9.3 mg/dL 8.5-10.1 mg/ dL [facility]: 0 [facility] Normal AST/SGOT 11 U/L 7-37 U/L [facility]: [address] [place] [address] Normal ALT/SGPT 18 U/L 12-78 U/L [facility]: 0 [facility] Normal Alkaline Phosphatase 72 U/L 45-117 U /L [facility]: [address] [place] [address] Normal Bilirubin,total 0.3 mg/dL 0.2-1.0 mg /dL [facility]: 0 [facility] Normal Total Protein 7.0 gm/dL 6.4-8.2 gm/d L [facility]: 0 [facility] Normal Albumin 3.7 gm/dL 3.2-5.2 gm/dL [facility]: 0 [facility] Low Albumin/globulin Ratio 1.1 1.2-2. 2 [facility]: [address] [place] [address] 10/26/2020 Hepatitis C Ab, Serum Normal Hepati tis C Virus Kelsea Index 0.1 index <0.8 index Final [facility] nter: 830 [facility] 10/26/2020 Lipid Panel, Blood High Triglycerides Lev el 216 mg/dL <150 mg/dL Final [facility]: 83 0 [facility] Normal Cholesterol Level 195 mg/dL <200 mg/ dL Final [facility]: 830 [facility] Low HDL Cholesterol 39 mg/dL >40 mg/dL F inal [facility]: 830 [facility] High LDL Cholesterol 113 mg/dL <100 mg/dL Final [facility]: 830 [facility] Normal Non-hdl-c 156 mg/dL Final [facility]: 830 [facility] Normal Cholesterol Risk Ratio 5.000 <5 Final [facility]: 830 [facility] 10/26/2020 TSH, Serum or Plasma Normal Thyroid Stimulating Hormone 2.170 uIU/mL 0.358-3.740 uIU/mL [facility]: 830 [facility] 10/26/2020 HIV 1+2 AB + HIV 1 P24 Ag, Qualitative Immunoassay, Serum Normal HIV 1&2 Screen Centaur negative negative Final [facility]: 830 [facility] Iron + TIBC + Ferritin, Serum Blood venous Normal Iro n, Total 79 mcg/dL 40-190 mcg/dL Final [facility] gh: [address] [facility] Blood venous Normal Iron Binding Capacity 31 9 mcg/dL (calc) 250-450 mcg/dL (calc) Final [facility] gh: [address] [place] Blood venous Normal % Saturation 25 % (calc) 16-4 5 % (calc) Final [facility]: [address] [place] Blood venous Normal Ferritin 38 NG/mL 16-154 NG/m L Final [facility]: 875 [facility] [place] Lipid Panel, Serum Blood venous High Cholesterol, T otal 220 mg/dL <200 mg/dL Final [facility] gh: [address] [facility] Blood venous Low HDL Cholesterol 43 mg/dL > or = 50 mg/dL Final [facility]: 875 [facility] Blood venous High Triglycerides 167 mg/dL <150 mg/dL Final [facility]: 875 [facility] Blood venous High LDL-cholesterol 147 mg/dL (ca lc) Final [facility]: 875 [facility] Blood venous High Chol/hdlc Ratio 5.1 (calc) <5 .0 (calc) Final [facility]: 875 [facility] Blood venous High Non HDL Cholesterol 177 mg/dL (calc) <130 mg/dL (calc) Final [facility]: 875 [facility] CMP, Serum or Plasma Blood venous Normal Glucose 94 mg/dL 65-99 mg/dL Final [facility]: [address] [facility] Blood venous Normal Urea Nitrogen (BUN) 15 mg/dL 7-25 mg/dL Final [facility]: 875 [facility] Blood venous Normal Creatinine 0.82 mg/dL 0.50-1. 10 mg/dL Final [facility]: 875 [facility] Blood venous Normal eGFR Non-afr. Bhutanese 9 0 mL/min/1.73m2 > or = 60 mL/min/1.73m2 Final [facility]: 875 [facility] Blood venous Normal eGFR 10 4 mL/min/1.73m2 > or = 60 mL/min/1.73m2 Final [facility]: 875 [facility] Blood venous BUN/creatinine Ratio not applicable (calc) 6-22 (calc) Final [facility]: [address] [facility] Blood venous Normal Sodium 140 mmol/L 135-146 mmo l/L Final [facility]: 875 [facility] Blood venous Normal Potassium 3.5 mmol/L 3.5-5.3 mmol/L Final [facility]: 875 [facility] Blood venous Normal Chloride 106 mmol/L 98-110 mm ol/L Final [facility]: 875 [facility] Blood venous Normal Carbon Dioxide 23 mmol/L 20-3 2 mmol/L Final [facility]: 875 [facility] Blood venous Normal Calcium 8.8 mg/dL 8.6-10.2 mg /dL [facility]: 875 [facility] Blood venous Normal Protein, Total 6.5 g/dL 6.1-8 .1 g/dL [facility]: 875 [facility] Blood venous Normal Albumin 4.1 g/dL 3.6-5.1 g/dL [facility]: 875 [facility] Blood venous Normal Globulin 2.4 g/dL (calc) 1.9- 3.7 g/dL (calc) [facility]: 875 [facility] Blood venous Normal Albumin/globulin Ratio 1 .7 (calc) 1.0-2.5 (calc) [facility]: [address] [facility] Blood venous Normal Bilirubin, Total 0.5 mg/dL 0. 2-1.2 mg/dL [facility]: 875 [facility] Blood venous Normal Alkaline Phosphatase 63 U/L 3 1-125 U/L [facility]: 875 [facility] Blood venous Normal Ast 16 U/L 10-30 U/L Final [facility]: 875 [facility] Blood venous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
--- OUTSIDE RECORDS SUMMARY | 2021-08-04 14:45 | CCD ---
Author Author [facility] Organization [facility] Address Unknown Phone Unavailable Support Name Relationship Address Phone ULI JACKSON Next Of Kin [address] [place] [id number] DISABLED Next Of Kin Unknown Unavailable Greg Martin Next Of Kin Unknown Unavailable Doris Garcia Next Of Kin [address] [place] [phone] GREG JACKSON Next Of Kin [address] [place] [phone] Isamar Rudolph Next Of Kin [address] [place] [phone] Nasreen Adams MD Next Of Kin [address] [place] [address] Elizabeth Mcrae DDS Next Of Kin [address] [place] [address] [phone] Ina Stephenson DO Next Of Kin [address] [place] [phone] UNEMPLOYED Next Of Kin UE UE, UE UE ISAMAR LUGO Next Of Kin [address] [place] [phone] UN Next Of Kin Unknown Unavailable UE Next Of Kin Unknown Unavailable ST Next Of Kin Unknown Unavailable SAWYER [place] [address] NASREEN SANABRIA Next Of Kin [address] [place] [address] ALLMETROHL Next Of Kin [address] [place] [address] ULI JACKSON [address] [place] [address] Unavailable ISAMAR LUGO ECON [address] [place] [address] Unavailable greg reagan ECON [address] [place] [address] [phone] Care Team Providers Care Mirror Maker Name Role Phone Laina Adams MD Unavailable Unavailable Laina Adams MD Unavailable Unavailable Laina Adams MD Unavailable Unavailable Laina Adams MD Unavailable Unavailable Laina Adams MD Unavailable Unavailable Laina Adams MD Unavailable Unavailable Laina Adams MD Unavailable Unavailable Laina Adams MD Unavailable Unavailable Laina Adams MD Unavailable Unavailable Laina Adams MD Unavailable Unavailable Laina Adams MD Unavailable Unavailable Laina Adams MD Unavailable Unavailable Laina Adams MD Unavailable Unavailable Laina Adams MD Unavailable Unavailable Laina Adams MD Unavailable Unavailable Laina Adams MD Unavailable Unavailable Laina Adams MD Unavailable Unavailable Laina Adams MD Unavailable Unavailable Laina Adams MD Unavailable Unavailable Laina Adams MD Unavailable Unavailable Laina Adams MD Unavailable Unavailable Laina Adams MD Unavailable Unavailable Laina Adams MD Unavailable Unavailable Laina Adams MD Unavailable Unavailable Laina Adams MD Unavailable Unavailable Laina Adams MD Unavailable Unavailable Laina Adams MD Unavailable Unavailable Laina Adams MD Unavailable Unavailable Laina Adams MD Unavailable Unavailable Laina Adams MD Unavailable Unavailable Laina Adams MD Unavailable Unavailable Laina Adams MD Unavailable Unavailable Laina Adams MD Unavailable Unavailable Laina Adams MD Unavailable Unavailable Laina Adams MD Unavailable Unavailable Laina Adams MD Unavailable Unavailable Laina Adams MD Unavailable Unavailable Laina Adams MD Unavailable Unavailable Laina Adams MD Unavailable Unavailable Laina Adams MD Unavailable Unavailable Laina Adams MD Unavailable Unavailable Laina Adams MD Unavailable Unavailable Laina Adams MD Unavailable Unavailable Laina Adams MD Unavailable Unavailable Laina Adams MD Unavailable Unavailable Laina Adams MD Unavailable Unavailable Laina Adams MD Unavailable Unavailable Laina Adams MD Unavailable Unavailable Laina Adams MD Unavailable Unavailable Laina Adams MD Unavailable Unavailable Laina Adams MD Unavailable Unavailable Laina Adams MD Unavailable Unavailable Laina Adams MD Unavailable Unavailable Laina Adams MD Unavailable Unavailable Laina Adams MD Unavailable Unavailable Laina Adams MD Unavailable Unavailable Laina Adams MD Unavailable Unavailable Laina Adams MD Unavailable Unavailable Laina Adams MD Unavailable Unavailable Laina Admas MD Unavailable Unavailable Laina Adams MD Unavailable Unavailable Laina Adams MD Unavailable Unavailable Laina Adams MD Unavailable Unavailable Laina Adams MD Unavailable Unavailable Laina Adams MD Unavailable Unavailable Laina Adams MD Unavailable Unavailable Laina Adams MD Unavailable Unavailable aLina Adams MD Unavailable Unavailable Laina Adams MD Unavailable Unavailable Laina Adams MD Unavailable Unavailable Laina Adams MD Unavailable Unavailable Laina Adams MD Unavailable Unavailable Laina Adams MD Unavailable Unavailable Laina Adams MD Unavailable Unavailable Laina Adams MD Unavailable Unavailable Laina Adams MD Unavailable Unavailable Laina Adams MD Unavailable Unavailable Laina Adams MD Unavailable Unavailable Laina Adams MD Unavailable Unavailable Laina Adams MD Unavailable Unavailable Laina Adams MD Unavailable Unavailable Laina Adams MD Unavailable Unavailable Laina Adams MD Unavailable Unavailable Laina Adams MD Unavailable Unavailable Laina Adams MD Unavailable Unavailable Laina Adams MD Unavailable Unavailable Laina Adams MD Unavailable Unavailable Laina Adams MD Unavailable Unavailable Laina Adams MD Unavailable Unavailable Laina Adams MD Unavailable Unavailable Laina Adams MD Unavailable Unavailable Laina Adams MD Unavailable Unavailable Laina Adams MD Unavailable Unavailable Doris Man FLAME CHANNELER FLAME CHANNELER Unavailable Unavailable Rizwan Caro MD Unavailable Unavailable Rizwan Caro MD Unavailable Unavailable Rizwan Caro MD Unavailable Unavailable Rizwan Caro MD Unavailable Unavailable Rizwan Caro MD Unavailable Unavailable Rizwan Caro MD Unavailable Unavailable Rizwan Caro MD Unavailable Unavailable Rizwan Caro MD Unavailable Unavailable Rizwan Caro MD Unavailable Unavailable Rizwan Caro MD Unavailable Unavailable Rizwan Caro MD Unavailable Unavailable Chad Pantoja PLASTICS SEASONER OPERATOR Unavailable Unavailable Chad Pantoja PLASTICS SEASONER OPERATOR Unavailable Unavailable Chad Pantoja PLASTICS SEASONER OPERATOR Unavailable Unavailable Candis Wang Unavailable [phone] Chad GRIDERW DPM Unavailable Unavailable MAJAK, R JINNY DPM Unavailable Unavailable MAJAK, R JINNY DPM Unavailable Unavailable MAJAK, R JINNY DPM Unavailable Unavailable MAJAK, R JINNY DPM Unavailable Unavailable MAJAK, R JINNY DPM Unavailable Unavailable MAJAK, R JINNY DPM Unavailable Unavailable MAJAK, R JINNY DPM Unavailable Unavailable MAJAK, R JINNY DPM Unavailable Unavailable MAJAK, R JINNY DPM Unavailable Unavailable MAJAK, R JINNY DPM Unavailable Unavailable MAJAK, R JINNY DPM Unavailable Unavailable MAJAK, R JINNY DPM Unavailable Unavailable MAJAK, R JINNY DPM Unavailable Unavailable MAJAK, R JINNY DPM Unavailable Unavailable MAJAK, R JINNY DPM Unavailable Unavailable MAJAK, R JINNY DPM Unavailable Unavailable MAJAK, R JINNY DPM Unavailable Unavailable MAJAK, R JINNY DPM Unavailable Unavailable MAJAK, R JINNY DPM Unavailable Unavailable MAJAK, R JINNY DPM Unavailable Unavailable MAJAK, R JINNY DPM Unavailable Unavailable MAJAK, R JINNY DPM Unavailable Unavailable MAJAK, R JINNY DPM Unavailable Unavailable MAJAK, R JINNY DPM Unavailable Unavailable MAJAK, R JINNY DPM Unavailable Unavailable MAJAK, R JINNY DPM Unavailable Unavailable MAJAK, R JINNY DPM Unavailable Unavailable MAJAK, R JINNY DPM Unavailable Unavailable MAJAK, R JINNY DPM Unavailable Unavailable MAJAK, R JINNY DPM Unavailable Unavailable MAJAK, R JINNY DPM Unavailable Unavailable Goldsmith, Matthew Barrera MD Unavailable Unavailable Goldsmith, Matthew Barrera MD Unavailable Unavailable Goldsmith, Matthew Barrera MD Unavailable Unavailable Goldsmith, Matthew Barrera MD Unavailable Unavailable Goldsmith, Matthew Barrera MD Unavailable Unavailable Goldsmith, Matthew Barrera MD Unavailable Unavailable Goldsmith, Matthew Barrera MD Unavailable Unavailable Goldsmith, Matthew Barrera MD Unavailable Unavailable Goldsmith, Matthew Barrera MD Unavailable Unavailable Goldsmith, Matthew Barrera MD Unavailable Unavailable Goldsmith, Matthew aBrrera MD Unavailable Unavailable Goldsmith, Matthew Barrera MD Unavailable Unavailable Goldsmith, Matthew Barrera MD Unavailable Unavailable Golsdmith, Matthew Barrera MD Unavailable Unavailable Goldsmith, Matthew Barrera MD Unavailable Unavailable Goldsmith, Matthew Barrera MD Unavailable Unavailable Goldsmith, Matthew Barrera MD Unavailable Unavailable Goldsmith, Matthew Barrera MD Unavailable Unavailable Goldsmith, Matthew Barrera MD Unavailable Unavailable Goldsmith, Matthew Barrera MD Unavailable Unavailable Goldsmith, Matthew Barrera MD Unavailable Unavailable Goldsmith, Matthew Barrera MD Unavailable Unavailable Goldsmith, Matthew Barrera MD Unavailable Unavailable Goldsmith, Matthew Barrera MD Unavailable Unavailable Goldsmith, Matthew Barrera MD Unavailable Unavailable Goldsmith, Matthew Barrera MD Unavailable Unavailable Goldsmith, Matthew Barrera MD Unavailable Unavailable Goldsmith, Matthew Barrera MD Unavailable Unavailable Goldsmith, Matthew Barrera MD Unavailable Unavailable Goldsmith, Matthew Barrera MD Unavailable Unavailable Goldsmith, Matthew Barrera MD Unavailable Unavailable Goldsmith, Matthew Barrera MD Unavailable Unavailable Goldsmith, Matthew Barrera MD Unavailable Unavailable Goldsmith, Matthew Barrera MD Unavailable Unavailable Goldsmith, Matthew Barrera MD Unavailable Unavailable Goldsmith, Matthew Barrera MD Unavailable Unavailable Goldsmith, Matthew Barrera MD Unavailable Unavailable Goldsmith, Matthew Barrera MD Unavailable Unavailable Goldsmith, Matthew Barrera MD Unavailable Unavailable Goldsmith, Matthew Barrera MD Unavailable Unavailable Goldsmith, Matthew Barrera MD Unavailable Unavailable Goldsmith, Matthew Barrera MD Unavailable Unavailable Goldsmith, Matthew Barrera MD Unavailable Unavailable Goldsmith, Matthew Barrera MD Unavailable Unavailable Goldsmith, Matthew Barrera MD Unavailable Unavailable Goldsmith, Matthew Barrera MD Unavailable Unavailable Goldsmith, L Bruce YANES Unavailable Unavailable Goldsmith, L Bruce YANES Unavailable Unavailable Goldsmith, Matthew Barrera MD Unavailable Unavailable Goldsmith, Matthew Barrera MD Unavailable Unavailable Nayeli Calabrese Unavailable Man, F Doris FLAME CHANNELER-BC Unavailable Unavailable Man, F Doris FLAME CHANNELER-BC Unavailable Unavailable Man, F Doris FLAME CHANNELER-BC Unavailable Unavailable Man, F Doris FLAME CHANNELER-BC Unavailable Unavailable Man, F Doris FLAME CHANNELER-BC Unavailable Unavailable Man, F Doris FLAME CHANNELER-BC Unavailable Unavailable Man, F Doris FLAME CHANNELER-BC Unavailable Unavailable Man, F Doris FLAME CHANNELER-BC Unavailable Unavailable Man, F Doris FLAME CHANNELER-BC Unavailable Unavailable Man, F Doris FLAME CHANNELER-BC Unavailable Unavailable Man, F Doris FLAME CHANNELER-BC Unavailable Unavailable Man, F Doris FLAME CHANNELER-BC Unavailable Unavailable Man, F Doris FLAME CHANNELER-BC Unavailable Unavailable Man, F Doris FLAME CHANNELER-BC Unavailable Unavailable Man, F Doris FLAME CHANNELER-BC Unavailable Unavailable Man, F Doris FLAME CHANNELER-BC Unavailable Unavailable Man, F Doris FLAME CHANNELER-BC Unavailable Unavailable Man, F Doris FLAME CHANNELER-BC Unavailable Unavailable Man, F Doris FLAME CHANNELER-BC Unavailable Unavailable Man, F Doris FLAME CHANNELER-BC Unavailable Unavailable Man, F Doris FLAME CHANNELER-BC Unavailable Unavailable Man, F Doris FLAME CHANNELER-BC Unavailable Unavailable Man, F Doris FLAME CHANNELER-BC Unavailable Unavailable Re-disclosure Warning The records that you are about to access may contain information from federally-assisted alcohol or drug abuse programs. If such information is present, then the following federally mandated warning applies: This information has been disclosed to you from records protected by federal confidentiality rules (42 CFR part 2). The federal rules prohibit you from making any further disclosure of this information unless further disclosure is expressly permitted by the written consent of the person to whom it pertains or as otherwise permitted by 42 CFR part 2. A general authorization for the release of medical or other information is NOT sufficient for this purpose. The Federal rules restrict any use of the information to criminally investigate or prosecute any alcohol or drug abuse patient.The records that you are about to access may contain highly sensitive health information, the redisclosure of which is protected by Article 27-F of the [place] State Public Health law. If you continue you may have access to information: Regarding HIV / AIDS; Provided by facilities licensed or operated by the [facility] Office of Mental Health; or Provided by the [facility] Office for People With Developmental Disabilities. If such information is present, then the following [facility] mandated warning applies: This information has been disclosed to you from confidential records which are protected by state law. State law prohibits you from making any further disclosure of this information without the specific written consent of the person to whom it pertains, or as otherwise permitted by law. Any unauthorized further disclosure in violation of state law may result in a fine or detention sentence or both. A general authorization for the release of medical or other information is NOT sufficient authorization for further disc losure. Allergies and Adverse Reactions Type Description Substance Reaction Status Data Source(s ) Propensity to adverse reactions to substance Penicillins Pen icillins Anaphylaxis Severe Active [facility] ([facility]) Propensity to adverse reactions to substance trazodone Trazodone Hydrochloride 50 MG Oral Tablet Active [facility] ([facility]) Family History Family Member Name Family Member Gender Family Member Status Date o f Status Description Data Source(s) Unknown Unknown Problem [facility] ([facility], ) Unknown Unknown Problem [facility] ([facility], ) Unknown Unknown Problem [facility] ([facility], ) Unknown Unknown Problem [facility] ([facility], ) Unknown Unknown Problem [facility] ([facility], ) Unknown Unknown Problem [facility] ([facility], ) Encounters Encounter Providers Location Date Indications Data Source(s ) Nasreen Adams MD: [address] [place] [address], Ph. Attender: Nasreen Adams MD [facility] Medical 07/11/2021 12:00:00 AM EDT JOHANA ([facility]) Nasreen Adams MD: [address] [place] [address], Ph. Attender: Nasreen Adams MD [facility] Medical 06/21/2021 12:00:00 AM EDT JOHANA ([facility]) Nasreen Adams MD: [address] [place] [address], Ph. Attender: Nasreen Adams MD [facility] Medical 06/21/2021 12:00:00 AM EDT JOHANA ([facility]) Candis Wang [facility]: [address] [place] [address], Ph. Attender: Candis Wang [facility] Medical 06/08/2021 12:00:00 AM EDT JOHANA ([facility]) Candisbrittaney Wang [facility]: [address] [place] [address], Ph. Attender: Candis Wang [facility] Medical 06/08/2021 12:00:00 AM EDT JOHANA ([facility]) Candis Isarivera [facility]: [address] [place] [address], Ph. Attender: Candis Wang [facility] Medical 06/08/2021 12:00:00 AM EDT JOHANA ([facility]) Unknown [address] [facility] [address] 05/28/2021 12:00:00 AM EDT [facility]CW[facility] [place] [address] [facility] [address] 05/24/2021 12:00:00 AM EDT eCW1 [facility]) Candis Isarivera [facility]: [address] [place] [address], Ph. Attender: Candis Wang [facility] Medical 05/22/2021 12:00:00 AM EDT JOHANA ([facility]) Candis Wang [facility]: [address] [place] [address], Ph. Attender: Candis Wang [facility] Medical 05/22/2021 12:00:00 AM EDT FLORAHOME ([facility]) Candis Wang, [facility]: [address] [place] [address], Ph. Attender: Candis Wang [facility] Medical 05/22/2021 12:00:00 AM EDT FLOR[place] ([facility]) Candis Wang, [facility]: [address] [place] [address], Ph. Attender: Candis Wang [facility] Medical 05/22/2021 12:00:00 AM EDT [facility]) Candis Wang, [facility]: [address] [place] [address], Ph. Attender: Candis Wang [facility] Medical 05/08/2021 12:00:00 AM EDT [place]OR[place] ([facility]) Candis Wang, [facility]: [address] [place] [address], Ph. Attender: Candis Wang [facility] Medical 05/08/2021 12:00:00 AM EDT [place] ([facility]) [facility] [address] [place] [address], Ph. Attender: Candis Wang [facility] Medical 05/08/2021 12:00:00 AM EDT [place] ([facility]) [facility] [address] [place] [address], Ph. Attender: Candis Wang [facility] Medical 05/08/2021 12:00:00 AM EDT FLOR[place]OME ([facility]) Outpatient [address] [facility] [id number] 05/03/2021 12:00:00 AM EDT eCW1 ([facility]) Nasreen Adams MD: [address] [place] [address], Ph. Attender: Nasreen Adams MD [facility] Medical 05/02/2021 12:00:00 AM EDT JOHANA ([facility]) Nasreen Adams MD: [address] [place] [address], Ph. Attender: Nasreen Adams MD [facility] Medical 05/02/2021 12:00:00 AM EDT JOHANA ([facility]) Nasreen Adams MD: [address] [place] [address], Ph. Attender: Nasreen Adams MD [facility] Medical 05/02/2021 12:00:00 AM EDT JOHANA ([facility]) Nasreen Adams MD: [address] [place] [address], Ph. Attender: Nasreen Adams MD [facility] Medical 05/02/2021 12:00:00 AM EDT JOHANA ([facility]) Nasreen Adams MD: [address] [place] [address], Ph. Attender: Nasreen Adams MD [facility] Medical 05/02/2021 12:00:00 AM EDT JOHANA ([facility]) (WC PROC) [facility] [address] [place] [address] 04/30/2021 12:00:00 AM EDT eCW1 (Critical access hospital) Unknown [address] [facility] [address] 04/23/2021 12:00:00 AM EDT eCW1 ([facility]) Unknown [address] [facility] [place] [address] 04/18/2021 12:00:00 AM EDT eCW1 [facility]) Unknown [address] [facility] [place] [address] 04/11/2021 12:00:00 AM EDT eCW1 ([facility]) Outpatient [address] [facility] [address] 04/10/2021 12:00:00 AM EDT eCW1 ([facility]) Unknown [address] [facility] [address] 04/09/2021 12:00:00 AM EDT eCW1 ([facility]) Nasreen Adams MD: [address] [place] [address], Ph. Attender: Nasreen Adams MD [facility] Medical 03/29/2021 12:00:00 AM EDT JOHANA ([facility]) Nasreen Adams MD: [address] [place] [address], Ph. Attender: Nasreen Adams MD [facility] Medical 03/29/2021 12:00:00 AM EDT JOHANA ([facility]) Nasreen Adams MD: [address] [place] [address], Ph. Attender: Nasreen Adams MD [facility] Medical 03/29/2021 12:00:00 AM EDT JOHANA ([facility]) Nasreen Adams MD: [address] [place] [address], Ph. Attender: Nasreen Adams MD [facility] Medical 03/29/2021 12:00:00 AM EDT JOHANA ([facility]) Nasreen Adams MD: [address] [place] [address], Ph. Attender: Nasreen Adams MD [facility] Medical 03/29/2021 12:00:00 AM EDT JOHANA ([facility]) Nasreen Adams MD: [address] [place] [address], Ph. Attender: Nasreen Adams MD [facility] Medical 03/21/2021 12:00:00 AM EDT JOHANA ([facility]) Nasreen Adams MD: [address] [place] [address], Ph. Attender: Nasreen Adams MD [facility] Medical 03/21/2021 12:00:00 AM EDT JOHANA ([facility]) Nasreen Adams MD: [address] [place] [address], Ph. Attender: Nasreen Adams MD [facility] Medical 03/21/2021 12:00:00 AM EDT JOHANA ([facility]) Nasreen Adams MD: [address] [place] [address], Ph. Attender: Nasreen Adams MD [facility] Medical 03/21/2021 12:00:00 AM EDT JOHANA ([facility]) Nasreen Adams MD: [address] [place] [address], Ph. Attender: Nasreen Adams MD [facility] Medical 03/21/2021 12:00:00 AM EDT JOHANA ([facility]) Nasreen Adams MD: [address] [place] [address], Ph. Attender: Nasreen Adams MD [facility] Medical 03/21/2021 12:00:00 AM EDT JOHANA ([facility]) Unknown [address] [facility] [place] [address] 03/05/2021 12:00:00 AM EDT eCW1 ([facility]) Outpatient Attender: Bruce Goldsmith MD Physical Therapy 02/19/2021 0 1:15:00 PM EDT MEDENT ([facility]) Nasreen Adams MD: [address] [place] [address], Ph. Attender: Nasreen Adams MD [facility] Medical 02/14/2021 12:00:00 AM EDT JOHANA ([facility]) Nasreen Adams MD: [address] [place] [address], Ph. Attender: Nasreen Adams MD [facility] Medical 02/14/2021 12:00:00 AM EDT JOHANA ([facility]) Nasreen Adams MD: [address] [place] [address], Ph. Attender: Nasreen Adams MD [facility] Medical 02/14/2021 12:00:00 AM EDT JOHANA ([facility]) Nasreen Adams MD: [address] [place] [address], Ph. Attender: Nasreen Adams MD [facility] Medical 02/14/2021 12:00:00 AM EDT JOHANA ([facility]) Nasreen Adams MD: [address] [place] [address], Ph. Attender: Nasreen Adams MD [facility] Medical 02/14/2021 12:00:00 AM EDT JOHANA ([facility]) Nasreen Adams MD: [address] [place] [address], Ph. Attender: Nasreen Adams MD [facility] Medical 02/14/2021 12:00:00 AM EDT JOHANA ([facility]) Nasreen Adams MD: [address] [place] [address], Ph. Attender: Nasreen Adams MD [facility] Medical 02/14/2021 12:00:00 AM EDT JOHANA ([facility]) Outpatient Attender: Renan Caro MD Physical Therapy 02:30:00 PM EDT MEDENT ([facility]) Outpatient Attender: Bruce Goldsmith MD Physical Therapy 01/18/2021 0 2:00:00 PM EDT MEDENT ([facility]) Unknown [address] [facility] [place] [address] 01/15/2021 12:00:00 AM EDT eCW1 ([facility]) Nasreen Adams MD: [address], [place] [address], Ph. Attender: Nasreen Adams MD [facility] Medical 01/10/2021 12:00:00 AM EDT JOHANA ([facility]) Nasreen Adams MD: [address], [place] [address], Ph. Attender: Nasreen Adams MD [facility] Medical 01/10/2021 12:00:00 AM EDT JOHANA ([facility]) Nasreen Adams MD: [address], [address], [place] [address], Ph. Attender: Nasreen Adams MD [facility] Medical 01/10/2021 12:00:00 AM EDT JOHANA ([facility]) Nasreen Adams MD: [address], [address], [place] [address], Ph. Attender: Nasreen Adams MD [facility] Medical 01/10/2021 12:00:00 AM EDT JOHANA ([facility]) Nasreen Adams MD: [address], [address], [place] [address], Ph. Attender: Nasreen Adams MD [facility] Medical 01/10/2021 12:00:00 AM EDT JOHANA ([facility]) Nasreen Adams MD: [address], [address], [place] [address], Ph. Attender: Nasreen Adams MD [facility] Medical 01/10/2021 12:00:00 AM EDT JOHANA ([facility]) Nasreen Adams MD: [address], [address], [place] [address], Ph. Attender: Nasreen Adams MD [facility] Medical 01/10/2021 12:00:00 AM EDT JOHANA ([facility]) Nasreen Adams MD: [address], [address], [place] [address], Ph. Attender: Nasreen Adams MD [facility] Medical 01/10/2021 12:00:00 AM EDT JOHANA ([facility]) Outpatient Attender: JINNY GRIDER [facility] Office 11/14 09:45:00 AM EDT MEDENT ([facility] Outpatient [address] [facility], [facility] [id number] 11/27/2020 12:00:00 AM EDT eCW1 ([facility]) Outpatient [address] [facility] [id number] 11/16/2020 12:00:00 AM EST eCW1 ([facility]) Unknown [address] [facility] [place] [address] 11/02/2020 12:00:00 AM EST eCW1 ([facility]) Nasreen Adams MD: [address] [place] [address], Ph. Attender: Nasreen Adams MD [facility] Medical 10/26/2020 12:00:00 AM EST JOHANA ([facility]) Nasreen Adams MD: [address] [place] [address], Ph. Attender: Nasreen Adams MD [facility] Medical 10/26/2020 12:00:00 AM EST JOHANA ([facility]) Nasreen Adams MD: [address] [place] [address], Ph. Attender: Nasreen Adams MD [facility] Medical 10/26/2020 12:00:00 AM EST JOHANA ([facility]) Nasreen Adams MD: [address] [place] [address], Ph. Attender: Nasreen Adams MD [facility] Medical 10/26/2020 12:00:00 AM EST JOHANA ([facility]) Nasreen Adams MD: [address] [place] [address], Ph. Attender: Nasreen Adams MD [facility] Medical 10/26/2020 12:00:00 AM EST JOHANA ([facility]) Nasreen Adams MD: [address] [place] [address], Ph. Attender: Nasreen Adams MD [facility] Medical 10/26/2020 12:00:00 AM EST JOHANA ([facility]) Nasreen Adams MD: [address] [place] [address], Ph. Attender: Nasreen Adams MD [facility] Medical 10/26/2020 12:00:00 AM EST JOHANA ([facility]) Nasreen Adams MD: [address] [place] [address], Ph. Attender: Nasreen Adams MD [facility] Medical 10/26/2020 12:00:00 AM EST JOHANA ([facility]) Nasreen Adams MD: [address] [place] [address], Ph. Attender: Nasreen Adams MD [facility] Medical 10/26/2020 12:00:00 AM EST JOHANA ([facility]) Outpatient Attender: Bart Pantoja NP [facility] 10/25/2020 02:30:00 AM EST - 10/25/2020 02:30:00 AM EST [facility] ([facility]) Attender: Bart Pantoja NP 10/25/2020 12:00:00 AM EST [facility] ([facility]) Unknown [address] [facility], [place] [address] 09/29/2020 12:00:00 AM EST eCW1 ([facility]) Outpatient [address] [facility] [place] [address] 09/29/2020 12:00:00 AM EST eCW1 ([facility]) Outpatient Attender: JINNY GRIDER [facility] 08/17 08:30:00 AM EST [facility] ([facility] Attender: Nayeli Calabrese 09/11/2020 12:00:00 A M EST [facility] ([facility]) Extended Individual Psychotherapy - 45 min Attender: Caleb Calabrese [facility] 08/24/2020 09:00:00 AM EST - 08/24/2020 09:00:00 AM EST [facility] ([facility]) Outpatient Attender: Bart Pantoja NP [facility] 08/17/2020 02:30:00 AM EST - 08/17/2020 02:30:00 AM EST [facility] ([facility]) Attender: Bart Pantoja NP 08/17/2020 12:00:00 AM EST [facility] ([facility]) Outpatient Attender: JINNY GRIDER [facility] Office 07/16 08:15:00 AM EST [facility] ([facility] (PN Proc 60) Pain Procedure 60 [address] [place] [address] 07/31/2020 12:00:00 AM EST eCW1 ([facility]) Unknown [address] [facility] [address] 07/28/2020 12:00:00 AM EST eCW1 ([facility]) [id number]"Psych[facility]10[facility] 10:45:00 AM EDT - 07/10/2020 10:45:00 AM EDT [facility] ([facility]) Attender: Nayeli Calabrese 07/10/2020 12:00:00 A M EDT [facility] ([facility]) Outpatient Attender: BONILLA SANCHEZ 07/04/2020 11:13:03 AM EDT [facility] Unknown [address] [facility] [address] 06/22/2020 12:00:00 AM EDT eCW1 ([facility]) Unknown [address] [facility] [place] [address] 06/22/2020 12:00:00 AM EDT eCW1 ([facility]) Unknown [address] [facility] [place] [address] 06/21/2020 12:00:00 AM EDT eCW1 ([facility]) Unknown [address] [facility] [place] [address] 06/20/2020 12:00:00 AM EDT eCW1 ([facility]) Unknown [address] [facility] [place] [address] 06/20/2020 12:00:00 AM EDT eCW1 ([facility]) Outpatient Attender: BONILLA CRYSTAL FP 06/19/2020 12:12:02 PM EDT [facility] Outpatient Attender: Doris CRYSTAL-BC FP 06/19/2020 12: 11:02 PM EDT [facility] TEMPMHCTelemed 30" Psychotherapy Attender: Nayeli [facility] 06/19/2020 02:15:00 AM EDT - 06/19/2020 02:15:00 AM EDT [facility] ([facility]) Attender: Nayeli Calabrese 06/19/2020 12:00:00 A M EDT [facility] ([facility]) Outpatient Attender: Doris CRYSTAL-BC FP 06/17/2020 01: 11:03 PM EDT [facility] Outpatient Attender: BONILLA CRYSTAL FP 06/15/2020 04:02:01 PM EDT [facility] Outpatient Attender: Bart Pantoja NP [facility] 06/15/2020 02:30:00 AM EDT - 06/15/2020 02:30:00 AM EDT [facility] ([facility]) Attender: Bart Pantoja NP 06/15/2020 12:00:00 AM EDT [facility] ([facility]) Functional Status Immunizations Vaccine Date Status Description Data Source(s) New in 2011. IIV4 07/11/2021 12:36:00 PM EDT completed 07/11/20 21 JOHANA ([facility]) COVID-19 VACCINE Moderna 06/22/2021 12:00:00 AM EDT completed [place] Vaccine Series Complete: YESThis Data wa s Submitted to [facility] Via [employer]. COVID-19 VACCINE Moderna 05/25/2021 12:00:00 AM EDT completed [place] Vaccine Series Complete: NOThis Data was Submitted to [facility] Via [employer]. New in 2011. IIV4 10/26/2020 10:32:00 AM EST completed .5 mL JOHANA ([facility]) New in 2011. IIV4 10/26/2020 10:32:00 AM EST completed .5 mL JOHANA ([facility]) New in 2011. IIV4 10/26/2020 10:32:00 AM EST completed .5 mL JOHANA ([facility]) New in 2011. IIV4 10/26/2020 10:32:00 AM EST completed .5 mL JOHANA ([facility]) New in 2011. IIV4 10/26/2020 10:32:00 AM EST completed .5 mL JOHANA ([facility]) New in 2011. IIV4 10/26/2020 10:32:00 AM EST completed .5 mL JOHANA ([facility]) New in 2011. IIV4 10/26/2020 10:32:00 AM EST completed .5 mL JOHANA ([facility]) New in 2011. IIV4 10/26/2020 10:32:00 AM EST completed .5 mL JOHANA ([facility]) New in 2011. IIV4 10/26/2020 10:32:00 AM EST completed .5 mL JOHANA ([facility]) Medications Medication Brand Name Start Date Product Form Dose Route Admi nistrative Instructions Pharmacy Instructions Status Indications Reaction Description Data Source(s) 100 mcg/actuation 07/24/2021 12:00:00 AM EST blister with de vice 30 INHALE ONE PUFF BY MOUTH EVERY DAY INHALE ONE PUFF BY MOUTH EVERY DAY SOLD: 07/25/2021 [facility] 24 HR lamotrigine 200 MG Extended Release Oral Tablet LAMOTR IGINE 07/24/2021 12:00:00 AM EST tablet extended release 24hr 30 BARB E ONE TABLET BY MOUTH EVERY DAY TAKE ONE TABLET BY MOUTH EVERY DAY SOLD: 07/25/2021 [facility] 40 mg 07/11/2021 12:00:00 AM EDT tablet 30 TAKE ONE TABLET BY MOUTH EVERY DAY TAKE ONE TABLET BY MOUTH EVERY DAY SOLD: 07/11/2021 [facility] Potassium Chloride 10 MEQ Extended Release Oral Tablet POTAS SIUM CHLORIDE 07/11/2021 12:00:00 AM EDT tablet extended release 30 TAKE ONE TABLET BY MOUTH EVERY DAY TAKE ONE TABLET BY MOUTH EVERY DAY SOLD: 07/11/2021 [facility] 10 mg 07/10/2021 12:00:00 AM EDT tablet 30 TAKE ONE TABLET BY MOUTH EVERY DAY TAKE ONE TABLET BY MOUTH EVERY DAY SOLD: 07/10/2021 [facility] 0.5 mg 07/09/2021 12:00:00 AM EDT tablet 30 TAKE ONE TABLET BY MOUTH EVERY DAY TAKE ONE TABLET BY MOUTH EVERY DAY SOLD: 07/10/2021 [facility] quetiapine 200 MG Oral Tablet QUETIAPINE FUMARATE 07/09/2021 12: 00:00 AM EDT tablet 30 TAKE ONE TABLET BY MOUTH EVERY D AY AT BEDTIME TAKE ONE TABLET BY MOUTH EVERY DAY AT BEDTIME SOLD: 07/10/2021 [facility] 20 mg 07/09/2021 12:00:00 AM EDT capsule 30 TAKE ONE CAPSULE BY MOUTH EVERY DAY TAKE ONE CAPSULE BY MOUTH EVERY DAY SOLD: 07/10/2021 [facility] 200 mg 07/09/2021 12:00:00 AM EDT tablet 30 TAKE ONE TABLET BY MOUTH EVERY MORNING WITH FOOD TAKE ONE TABLET BY MOUTH EVERY MORNING WITH FOOD SOLD: 07/10/2021 [facility] 10 mg 07/09/2021 12:00:00 AM EDT tablet 30 TAKE ONE TABLET BY MOUTH EVERY DAY TAKE ONE TABLET BY MOUTH EVERY DAY SOLD: 07/10/2021 [facility] 60 mg 07/09/2021 12:00:00 AM EDT capsule 30 TAKE ONE CAPSULE BY MOUTH EVERY MORNING WITH FOOD TAKE ONE CAPSULE BY MOUTH EVERY MORNING WITH FOOD SOLD : 07/10/2021 [facility] 88 mcg 06/29/2021 12:00:00 AM EDT tablet 30 TAKE ONE TABLET BY MOUTH EVERY DAY TAKE ONE TABLET BY MOUTH EVERY DAY SOLD: 07/03/2021 [facility] 60 mg 06/12/2021 12:00:00 AM EDT capsule 30 TAKE ONE CAPSULE BY MOUTH EVERY DAY TAKE ONE CAPSULE BY MOUTH EVERY DAY SOLD: 06/12/2021 [facility] 200 mg 06/12/2021 12:00:00 AM EDT tablet 30 TAKE ONE TABLET BY MOUTH EVERY DAY TAKE ONE TABLET BY MOUTH EVERY DAY SOLD: 06/12/2021 [facility] 0.5 mg 06/11/2021 12:00:00 AM EDT tablet 30 TAKE ONE TABLET BY MOUTH EVERY DAY TAKE ONE TABLET BY MOUTH EVERY DAY SOLD: 06/12/2021 [facility] quetiapine 100 MG Oral Tablet QUETIAPINE FUMARATE 06/01/2021 12: 00:00 AM EDT tablet 45 TAKE 1 & 1/2 TABLETS BY MOUTH AT BEDTIME TAKE 1 & 1/2 TABLETS BY MOUTH AT BEDTIME SOLD: 06/03/2021 [facility] quetiapine 200 MG Oral Tablet QUETIAPINE FUMARATE 05/28/2021 12: 00:00 AM EDT tablet 30 TAKE ONE TABLET BY MOUTH AT BEDT PATRICIA TAKE ONE TABLET BY MOUTH AT BEDTIME SOLD: 05/28/2021 [facility] 10 mg 05/28/2021 12:00:00 AM EDT tablet 30 TAKE ONE TABLET BY MOUTH EVERY DAY TAKE ONE TABLET BY MOUTH EVERY DAY SOLD: 05/28/2021 [facility] 20 mg 05/28/2021 12:00:00 AM EDT capsule 30 TAKE ONE CAPSULE BY MOUTH EVERY MORNING TAKE ONE CAPSULE BY MOUTH EVERY MORNING SOLD: 05/28/2021 [facility] Potassium Chloride 10 MEQ Extended Release Oral Tablet POTAS SIUM CHLORIDE 05/08/2021 12:00:00 AM EDT tablet extended release 30 TAKE ONE TABLET BY MOUTH EVERY DAY TAKE ONE TABLET BY MOUTH EVERY DAY SOLD: 06/08/2021 [facility] Potassium Chloride 10 MEQ Extended Release Oral Tablet POTAS SIUM CHLORIDE 05/08/2021 12:00:00 AM EDT tablet extended release 30 TAKE ONE TABLET BY MOUTH EVERY DAY TAKE ONE TABLET BY MOUTH EVERY DAY SOLD: 05/09/2021 [facility] 40 mg 05/04/2021 12:00:00 AM EDT tablet 30 TAKE ONE TABLET BY MOUTH EVERY DAY TAKE ONE TABLET BY MOUTH EVERY DAY SOLD: 06/03/2021 [facility] 40 mg 05/04/2021 12:00:00 AM EDT tablet 30 TAKE ONE TABLET BY MOUTH EVERY DAY TAKE ONE TABLET BY MOUTH EVERY DAY SOLD: 05/05/2021 [facility] 50 mg 05/04/2021 12:00:00 AM EDT tablet extended release 24 hr 30 TAKE ONE TABLET BY MOUTH EVERY DAY TAKE ONE TABLET BY MOUTH EVERY DAY SOLD: 06/03/2021 [facility] 50 mg 05/04/2021 12:00:00 AM EDT tablet extended release 24 hr 30 TAKE ONE TABLET BY MOUTH EVERY DAY TAKE ONE TABLET BY MOUTH EVERY DAY SOLD: 05/05/2021 [facility] 24 HR mirabegron 50 MG Extended Release Oral Tablet [M yrbetriq] Myrbetriq 50 MG Myrbetriq 50 MG 05/03/2021 12:00:00 AM EDT 1.0 {tablet} active Myrbetriq 50 MG eCW1 ([facility]) 24 HR mirabegron 50 MG Extended Release Oral Tablet [M yrbetriq] Myrbetriq 50 MG Myrbetriq 50 MG 05/03/2021 12:00:00 AM EDT 1.0 {tablet} active Myrbetriq 50 MG eCW1 ([facility]) 24 HR mirabegron 50 MG Extended Release Oral Tablet [M yrbetriq] Myrbetriq 50 MG Myrbetriq 50 MG 05/03/2021 12:00:00 AM EDT 1.0 {tablet} active Myrbetriq 50 MG eCW1 ([facility]) Furosemide 40 MG Oral Tablet [Lasix] Lasix 40 MG Lasix 40 MG 04/30/2021 12:00:00 AM EDT 1.0 {tablet} active Lasix 40 M G eCW1 ([facility]) Furosemide 40 MG Oral Tablet [Lasix] Lasix 40 MG Lasix 40 MG 04/30/2021 12:00:00 AM EDT 1.0 {tablet} active Lasix 40 M G eCW1 ([facility]) Furosemide 40 MG Oral Tablet [Lasix] Lasix 40 MG Lasix 40 MG 04/30/2021 12:00:00 AM EDT 1.0 {tablet} active Lasix 40 M G eCW1 ([facility]) Furosemide 40 MG Oral Tablet [Lasix] Lasix 40 MG Lasix 40 MG 04/30/2021 12:00:00 AM EDT 1.0 {tablet} active Lasix 40 M G eCW1 ([facility]) doxycycline hyclate 100 MG Oral Tablet DOXYCYCLINE HYCLATE 0 04/24/2021 12:00:00 AM EDT tablet 4 TAKE ONE TABLET BY MOUTH TWO TIMES A DAY TAKE ONE TABLET BY MOUTH TWO TIMES A DAY SOLD: 04/24/2021 [facility] 2.5 mg /3 mL (0.083 %) 04/24/2021 12:00:00 AM EDT solu tion for nebulization 300 INHALE THE CONTENTS OF ONE V IAL VIA NEBULIZER EVERY 4 HOURS NEEDED FOR WHEEZING INHALE THE CONTENTS OF ONE VIAL VIA NEBU LIZER EVERY 4 HOURS NEEDED FOR WHEEZING SOLD: 04/24/2021 [facility] 40 mg 04/24/2021 12:00:00 AM EDT tablet 10 TAKE ONE TABLET BY MOUTH ONCE DAILY TAKE ONE TABLET BY MOUTH ONCE DAILY SOLD: 04/24/2021 [facility] montelukast 10 MG Oral Tablet MONTELUKAST SODIUM 04/24/2021 12:0 0:00 AM EDT tablet 30 TAKE ONE TABLET BY MOUTH ONCE DA BALTAZAR TAKE ONE TABLET BY MOUTH ONCE DAILY SOLD: 04/24/2021 [facility] 100 mcg/actuation 04/16/2021 12:00:00 AM EDT blister with de vice 30 INHALE ONE PUFF BY MOUTH EVERY DAY INHALE ONE PUFF BY MOUTH EVERY DAY SOLD: 05/25/2021 [facility] 24 HR lamotrigine 200 MG Extended Release Oral Tablet LAMOTR IGINE 04/16/2021 12:00:00 AM EDT tablet extended release 24hr 30 BARB E ONE TABLET BY MOUTH EVERY DAY TAKE ONE TABLET BY MOUTH EVERY DAY SOLD: 05/25/2021 [facility] 100 mcg/actuation 04/16/2021 12:00:00 AM EDT blister with de vice 30 INHALE ONE PUFF BY MOUTH EVERY DAY INHALE ONE PUFF BY MOUTH EVERY DAY SOLD: 04/23/2021 [facility] 24 HR lamotrigine 200 MG Extended Release Oral Tablet LAMOTR IGINE 04/16/2021 12:00:00 AM EDT tablet extended release 24hr 30 BARB E ONE TABLET BY MOUTH EVERY DAY TAKE ONE TABLET BY MOUTH EVERY DAY SOLD: 06/25/2021 [facility] 24 HR lamotrigine 200 MG Extended Release Oral Tablet LAMOTR IGINE 04/16/2021 12:00:00 AM EDT tablet extended release 24hr 30 BARB E ONE TABLET BY MOUTH EVERY DAY TAKE ONE TABLET BY MOUTH EVERY DAY SOLD: 04/23/2021 [facility] 100 mcg/actuation 04/16/2021 12:00:00 AM EDT blister with de vice 30 INHALE ONE PUFF BY MOUTH EVERY DAY INHALE ONE PUFF BY MOUTH EVERY DAY SOLD: 06/25/2021 [facility] tizanidine 2 MG Oral Tablet TIZANIDINE HCL 04/11/2021 12:00:00 AM EDT tablet 90 TAKE ONE TABLET BY MOUTH THREE TIMES A DAY TAKE ONE TA BLET BY MOUTH THREE TIMES A DAY SOLD: 06/08/2021 [facility] tizanidine 2 MG Oral Tablet TIZANIDINE HCL 04/11/2021 12:00:00 AM EDT tablet 90 TAKE ONE TABLET BY MOUTH THREE TIMES A DAY TAKE ONE TA BLET BY MOUTH THREE TIMES A DAY SOLD: 05/09/2021 [facility] tizanidine 2 MG Oral Tablet TIZANIDINE HCL 04/11/2021 12:00:00 AM EDT tablet 90 TAKE ONE TABLET BY MOUTH THREE TIMES A DAY TAKE ONE TA BLET BY MOUTH THREE TIMES A DAY SOLD: 04/11/2021 [facility] 88 mcg 03/30/2021 12:00:00 AM EDT tablet 30 TAKE ONE TABLET BY MOUTH EVERY DAY TAKE ONE TABLET BY MOUTH EVERY DAY SOLD: 03/30/2021 [facility] 88 mcg 03/30/2021 12:00:00 AM EDT tablet 30 TAKE ONE TABLET BY MOUTH EVERY DAY TAKE ONE TABLET BY MOUTH EVERY DAY SOLD: 04/30/2021 [facility] 88 mcg 03/30/2021 12:00:00 AM EDT tablet 30 TAKE ONE TABLET BY MOUTH EVERY DAY TAKE ONE TABLET BY MOUTH EVERY DAY SOLD: 05/28/2021 [facility] 50 mg 03/29/2021 12:00:00 AM EDT tablet 30 TAKE ONE TABLET BY MOUTH EVERY DAY TAKE ONE TABLET BY MOUTH EVERY DAY SOLD: 05/28/2021 [facility] 625 mg 03/29/2021 12:00:00 AM EDT tablet 60 TAKE 2 TABLETS BY MOUTH EVERY DAY TAKE 2 TABLETS BY MOUTH EVERY DAY SOLD: 05/28/2021 [facility] 50 mg 03/29/2021 12:00:00 AM EDT tablet 30 TAKE ONE TABLET BY MOUTH EVERY DAY TAKE ONE TABLET BY MOUTH EVERY DAY SOLD: 04/30/2021 [facility] 50 mg 03/29/2021 12:00:00 AM EDT tablet 30 TAKE ONE TABLET BY MOUTH EVERY DAY TAKE ONE TABLET BY MOUTH EVERY DAY SOLD: 07/25/2021 [facility] 50 mg 03/29/2021 12:00:00 AM EDT tablet 30 TAKE ONE TABLET BY MOUTH EVERY DAY TAKE ONE TABLET BY MOUTH EVERY DAY SOLD: 06/25/2021 [facility] 50 mg 03/29/2021 12:00:00 AM EDT tablet 30 TAKE ONE TABLET BY MOUTH EVERY DAY TAKE ONE TABLET BY MOUTH EVERY DAY SOLD: 03/30/2021 [facility] 625 mg 03/29/2021 12:00:00 AM EDT tablet 60 TAKE 2 TABLETS BY MOUTH EVERY DAY TAKE 2 TABLETS BY MOUTH EVERY DAY SOLD: 03/30/2021 [facility] 625 mg 03/29/2021 12:00:00 AM EDT tablet 60 TAKE 2 TABLETS BY MOUTH EVERY DAY TAKE 2 TABLETS BY MOUTH EVERY DAY SOLD: 06/25/2021 [facility] 625 mg 03/29/2021 12:00:00 AM EDT tablet 60 TAKE 2 TABLETS BY MOUTH EVERY DAY TAKE 2 TABLETS BY MOUTH EVERY DAY SOLD: 04/30/2021 [facility] 625 mg 03/29/2021 12:00:00 AM EDT tablet 60 TAKE 2 TABLETS BY MOUTH EVERY DAY TAKE 2 TABLETS BY MOUTH EVERY DAY SOLD: 07/25/2021 [facility] quetiapine 100 MG Oral Tablet QUETIAPINE FUMARATE 03/24/2021 12: 00:00 AM EDT tablet 45 TAKE 1 & 1/2 TABLETS BY MOUTH AT BEDTIME TAKE 1 & 1/2 TABLETS BY MOUTH AT BEDTIME SOLD: 04/30/2021 [facility] quetiapine 100 MG Oral Tablet QUETIAPINE FUMARATE 03/24/2021 12: 00:00 AM EDT tablet 45 TAKE 1 & 1/2 TABLETS BY MOUTH AT BEDTIME TAKE 1 & 1/2 TABLETS BY MOUTH AT BEDTIME SOLD: 03/30/2021 [facility] quetiapine 100 MG Oral Tablet QUETIAPINE FUMARATE 02/13/2021 12: 00:00 AM EDT tablet 30 TAKE ONE AND ONE-HALF TABLETS BY MOUTH EVERY DAY AT BEDTIME TAKE ONE AND ONE-HALF TABLETS BY MOUTH EVERY DAY AT BEDTIME SOLD: 03/12/2021 [facility] quetiapine 100 MG Oral Tablet QUETIAPINE FUMARATE 02/13/2021 12: 00:00 AM EDT tablet 30 TAKE ONE AND ONE-HALF TABLETS BY MOUTH EVERY DAY AT BEDTIME TAKE ONE AND ONE-HALF TABLETS BY MOUTH EVERY DAY AT BEDTIME SOLD: 03/09/2021 [facility] 24 HR lamotrigine 200 MG Extended Release Oral Tablet LAMOTR IGINE 01/11/2021 12:00:00 AM EDT tablet extended release 24hr 30 BARB E ONE TABLET BY MOUTH EVERY DAY TAKE ONE TABLET BY MOUTH EVERY DAY SOLD: 03/16/2021 [facility] 100 mcg/actuation 01/11/2021 12:00:00 AM EDT blister with de vice 30 INHALE 1 PUFF BY MOUTH EVERY DAY INHALE 1 PUFF BY MOUTH EVERY DAY SOLD: 01/15/2021 [facility] 100 mcg/actuation 01/11/2021 12:00:00 AM EDT blister with de vice 30 INHALE 1 PUFF BY MOUTH EVERY DAY INHALE 1 PUFF BY MOUTH EVERY DAY SOLD: 02/14/2021 [facility] 24 HR lamotrigine 200 MG Extended Release Oral Tablet LAMOTR IGINE 01/11/2021 12:00:00 AM EDT tablet extended release 24hr 30 BARB E ONE TABLET BY MOUTH EVERY DAY TAKE ONE TABLET BY MOUTH EVERY DAY SOLD: 02/14/2021 [facility] 24 HR lamotrigine 200 MG Extended Release Oral Tablet LAMOTR IGINE 01/11/2021 12:00:00 AM EDT tablet extended release 24hr 30 BARB E ONE TABLET BY MOUTH EVERY DAY TAKE ONE TABLET BY MOUTH EVERY DAY SOLD: 01/15/2021 [facility] 100 mcg/actuation 01/11/2021 12:00:00 AM EDT blister with de vice 30 INHALE 1 PUFF BY MOUTH EVERY DAY INHALE 1 PUFF BY MOUTH EVERY DAY SOLD: 03/16/2021 [facility] 4 mg 01/07/2021 12:00:00 AM EDT tablets,dose pack 21 TAKE BY MOUTH DIRECTED TAKE BY MOUTH DIRECTED SOLD: 01/07/2021 [facility] 10 mg 01/05/2021 12:00:00 AM EDT tablet 30 TAKE ONE TABLET BY MOUTH EVERY DAY TAKE ONE TABLET BY MOUTH EVERY DAY SOLD: 06/12/2021 [facility] 10 mg 01/05/2021 12:00:00 AM EDT capsule 30 TAKE ONE CAPSULE BY MOUTH EVERY DAY TAKE ONE CAPSULE BY MOUTH EVERY DAY SOLD: 03/08/2021 [facility] 75 mcg 01/05/2021 12:00:00 AM EDT tablet 30 TAKE ONE TABLET BY MOUTH EVERY DAY ON AN EMPTY STOMACH TAKE ONE TABLET BY MOUTH EVERY DAY ON AN EMPTY STOMACH SOLD: 03/08/2021 [facility] 75 mcg 01/05/2021 12:00:00 AM EDT tablet 30 TAKE ONE TABLET BY MOUTH EVERY DAY ON AN EMPTY STOMACH TAKE ONE TABLET BY MOUTH EVERY DAY ON AN EMPTY STOMACH SOLD: 02/06/2021 [facility] 10 mg 01/05/2021 12:00:00 AM EDT capsule 30 TAKE ONE CAPSULE BY MOUTH EVERY DAY TAKE ONE CAPSULE BY MOUTH EVERY DAY SOLD: 02/06/2021 [facility] 10 mg 01/05/2021 12:00:00 AM EDT tablet 30 TAKE ONE TABLET BY MOUTH EVERY DAY TAKE ONE TABLET BY MOUTH EVERY DAY SOLD: 04/11/2021 [facility] 75 mcg 01/05/2021 12:00:00 AM EDT tablet 30 TAKE ONE TABLET BY MOUTH EVERY DAY ON AN EMPTY STOMACH TAKE ONE TABLET BY MOUTH EVERY DAY ON AN EMPTY STOMACH SOLD: 01/05/2021 [facility] 10 mg 01/05/2021 12:00:00 AM EDT capsule 30 TAKE ONE CAPSULE BY MOUTH EVERY DAY TAKE ONE CAPSULE BY MOUTH EVERY DAY SOLD: 05/09/2021 [facility] 10 mg 01/05/2021 12:00:00 AM EDT capsule 30 TAKE ONE CAPSULE BY MOUTH EVERY DAY TAKE ONE CAPSULE BY MOUTH EVERY DAY SOLD: 04/11/2021 [facility] 10 mg 01/05/2021 12:00:00 AM EDT tablet 30 TAKE ONE TABLET BY MOUTH EVERY DAY TAKE ONE TABLET BY MOUTH EVERY DAY SOLD: 05/15/2021 [facility] 10 mg 01/05/2021 12:00:00 AM EDT tablet 30 TAKE ONE TABLET BY MOUTH EVERY DAY TAKE ONE TABLET BY MOUTH EVERY DAY SOLD: 02/06/2021 [facility] 10 mg 01/05/2021 12:00:00 AM EDT capsule 30 TAKE ONE CAPSULE BY MOUTH EVERY DAY TAKE ONE CAPSULE BY MOUTH EVERY DAY SOLD: 06/08/2021 [facility] 10 mg 01/05/2021 12:00:00 AM EDT tablet 30 TAKE ONE TABLET BY MOUTH EVERY DAY TAKE ONE TABLET BY MOUTH EVERY DAY SOLD: 03/08/2021 [facility] 10 mg 01/05/2021 12:00:00 AM EDT capsule 30 TAKE ONE CAPSULE BY MOUTH EVERY DAY TAKE ONE CAPSULE BY MOUTH EVERY DAY SOLD: 01/05/2021 [facility] 75 mcg 01/05/2021 12:00:00 AM EDT tablet 30 TAKE ONE TABLET BY MOUTH EVERY DAY ON AN EMPTY STOMACH TAKE ONE TABLET BY MOUTH EVERY DAY ON AN EMPTY STOMACH SOLD: 05/09/2021 [facility] 10 mg 01/05/2021 12:00:00 AM EDT tablet 30 TAKE ONE TABLET BY MOUTH EVERY DAY TAKE ONE TABLET BY MOUTH EVERY DAY SOLD: 01/05/2021 [facility] 75 mcg 01/05/2021 12:00:00 AM EDT tablet 30 TAKE ONE TABLET BY MOUTH EVERY DAY ON AN EMPTY STOMACH TAKE ONE TABLET BY MOUTH EVERY DAY ON AN EMPTY STOMACH SOLD: 04/11/2021 [facility] 2.5 mg /3 mL (0.083 %) 01/02/2021 12:00:00 AM EDT solu tion for nebulization 150 INHALE THE CONTENTS OF 1 VIA L VIA NEBULIZER EVERY 4 HOURS NEEDED FOR WHEEZING INHALE THE CONTENTS OF 1 VIAL VIA NEBULI ZER EVERY 4 HOURS NEEDED FOR WHEEZING SOLD: 01/05/2021 [facility] Hydrochlorothiazide 25 MG / Triamterene 37.5 MG Oral C apsule 37.5-25 mg TRIAMTERENE/HYDROCHLOROTHIAZID 12/27/2020 12:00:00 AM EDT capsule 30 TAKE ONE CAPSULE BY MOUTH EVERY DAY TAKE ONE CAPSULE BY MOUTH EVERY DAY SOLD: 03/08/2021 [facility] Hydrochlorothiazide 25 MG / Triamterene 37.5 MG Oral C apsule 37.5-25 mg TRIAMTERENE/HYDROCHLOROTHIAZID 12/27/2020 12:00:00 AM EDT capsule 30 TAKE ONE CAPSULE BY MOUTH EVERY DAY TAKE ONE CAPSULE BY MOUTH EVERY DAY SOLD: 02/06/2021 [facility] Hydrochlorothiazide 25 MG / Triamterene 37.5 MG Oral C apsule 37.5-25 mg TRIAMTERENE/HYDROCHLOROTHIAZID 12/27/2020 12:00:00 AM EDT capsule 30 TAKE ONE CAPSULE BY MOUTH EVERY DAY TAKE ONE CAPSULE BY MOUTH EVERY DAY SOLD: 01/05/2021 [facility] 5-325 mg 12/02/2020 12:00:00 AM EDT tablet 60 TAKE ONE TABLET BY MOUTH EVERY 12 HOURS NEEDED , MAXIMUM DAILY DOSE = 2 TABLETS TAKE ONE TABLET BY MOUTH EVERY 12 HOURS NEEDED , MAXIMUM DAILY DOSE = 2 TABLETS SOLD: 12/04/2020 [facility] 5 mg 12/01/2020 12:00:00 AM EDT tablet 60 TAKE ONE TABLET BY MOUTH TWICE A DAY TAKE ONE TABLET BY MOUTH TWICE A DAY SOLD: 12/04/2020 [facility] 5 mg 12/01/2020 12:00:00 AM EDT tablet 60 TAKE ONE TABLET BY MOUTH TWICE A DAY TAKE ONE TABLET BY MOUTH TWICE A DAY SOLD: 01/05/2021 [facility] quetiapine 100 MG Oral Tablet QUETIAPINE FUMARATE 11/30/2020 12: 00:00 AM EDT tablet 45 TAKE ONE AND ONE-HALF TABLETS BY MOUTH AT BEDTIME TAKE ONE AND ONE- HALF TABLETS BY MOUTH AT BEDTIME SOLD: 12/04/2020 [facility] quetiapine 100 MG Oral Tablet QUETIAPINE FUMARATE 11/30/2020 12: 00:00 AM EDT tablet 45 TAKE ONE AND ONE-HALF TABLETS BY MOUTH AT BEDTIME TAKE ONE AND ONE- HALF TABLETS BY MOUTH AT BEDTIME SOLD: 01/05/2021 [facility] Acetaminophen 325 MG / Hydrocodone Chilo trate 5 MG Oral Tablet Hydrocodone- Acetaminophen 5-325 MG Hydrocodone-Acetaminophen 5-325 MG 11/27/2020 12:00:00 AM EDT 1.0 {tablet_as_needed} active Hydrocodone-Acetaminophen 5-325 MG eCW1 ([facility]) Acetaminophen 325 MG / Hydrocodone Chilo trate 5 MG Oral Tablet HYDROcodone- Acetaminophen 5-325 MG HYDROcodone-Acetaminophen 5-325 MG 11/27/2020 12:00:00 AM EDT 1.0 {tablet_as_needed} active HYDROcodone-Acetaminophen 5-325 MG eCW1 ([facility]) Acetaminophen 325 MG / Hydrocodone Chilo trate 5 MG Oral Tablet HYDROcodone- Acetaminophen 5-325 MG HYDROcodone-Acetaminophen 5-325 MG 11/27/2020 12:00:00 AM EDT 1.0 {tablet_as_needed} suspended HYDROcodone-Acetaminophen 5- 325 MG eCW1 ([facility]) Acetaminophen 325 MG / Hydrocodone Chilo trate 5 MG Oral Tablet HYDROcodone- Acetaminophen 5-325 MG HYDROcodone-Acetaminophen 5-325 MG 11/27/2020 12:00:00 AM EDT 1.0 {tablet_as_needed} suspended HYDROcodone-Acetaminophen 5- 325 MG eCW1 ([facility]) Acetaminophen 325 MG / Hydrocodone Chilo trate 5 MG Oral Tablet Hydrocodone- Acetaminophen 5-325 MG Hydrocodone-Acetaminophen 5-325 MG 11/27/2020 12:00:00 AM EDT 1.0 {tablet_as_needed} active Hydrocodone-Acetaminophen 5-325 MG eCW1 ([facility]) Acetaminophen 325 MG / Hydrocodone Chilo trate 5 MG Oral Tablet HYDROcodone- Acetaminophen 5-325 MG HYDROcodone-Acetaminophen 5-325 MG 11/27/2020 12:00:00 AM EDT 1.0 {tablet_as_needed} suspended HYDROcodone-Acetaminophen 5- 325 MG eCW1 ([facility]) Acetaminophen 325 MG / Hydrocodone Chilo trate 5 MG Oral Tablet HYDROcodone- Acetaminophen 5-325 MG HYDROcodone-Acetaminophen 5-325 MG 11/27/2020 12:00:00 AM EDT 1.0 {tablet_as_needed} suspended HYDROcodone-Acetaminophen 5- 325 MG eCW1 ([facility]) Acetaminophen 325 MG / Hydrocodone Chilo trate 5 MG Oral Tablet HYDROcodone- Acetaminophen 5-325 MG HYDROcodone-Acetaminophen 5-325 MG 11/27/2020 12:00:00 AM EDT 1.0 {tablet_as_needed} suspended HYDROcodone-Acetaminophen 5- 325 MG eCW1 ([facility]) Acetaminophen 325 MG / Hydrocodone Chilo trate 5 MG Oral Tablet HYDROcodone- Acetaminophen 5-325 MG HYDROcodone-Acetaminophen 5-325 MG 11/27/2020 12:00:00 AM EDT 1.0 {tablet_as_needed} suspended HYDROcodone-Acetaminophen 5- 325 MG eCW1 ([facility]) Acetaminophen 325 MG / Hydrocodone Chilo trate 5 MG Oral Tablet HYDROcodone- Acetaminophen 5-325 MG HYDROcodone-Acetaminophen 5-325 MG 11/27/2020 12:00:00 AM EDT 1.0 {tablet_as_needed} suspended HYDROcodone-Acetaminophen 5- 325 MG eCW1 ([facility]) Acetaminophen 325 MG / Hydrocodone Chilo trate 5 MG Oral Tablet HYDROcodone- Acetaminophen 5-325 MG HYDROcodone-Acetaminophen 5-325 MG 11/27/2020 12:00:00 AM EDT 1.0 {tablet_as_needed} active HYDROcodone-Acetaminophen 5-325 MG eCW1 ([facility]) Acetaminophen 325 MG / Hydrocodone Chilo trate 5 MG Oral Tablet HYDROcodone- Acetaminophen 5-325 MG HYDROcodone-Acetaminophen 5-325 MG 11/27/2020 12:00:00 AM EDT 1.0 {tablet_as_needed} suspended HYDROcodone-Acetaminophen 5- 325 MG eCW1 ([facility]) tizanidine 2 MG Oral Tablet TIZANIDINE HCL 11/03/2020 12:00:00 AM EST tablet 90 TAKE ONE TABLET BY MOUTH THREE TIMES A DAY NEEDED T FRANS[place] ONE TABLET BY MOUTH THREE TIMES A DAY NEEDED SOLD: 11/03/2020 [facility] tizanidine 2 MG Oral Tablet TIZANIDINE HCL 11/03/2020 12:00:00 AM EST tablet 90 TAKE ONE TABLET BY MOUTH THREE TIMES A DAY NEEDED T FRANSICO ONE TABLET BY MOUTH THREE TIMES A DAY NEEDED SOLD: 12/04/2020 [facility] tizanidine 2 MG Oral Tablet TIZANIDINE HCL 11/03/2020 12:00:00 AM EST tablet 90 TAKE ONE TABLET BY MOUTH THREE TIMES A DAY NEEDED T FRANS[place] ONE TABLET BY MOUTH THREE TIMES A DAY NEEDED SOLD: 01/05/2021 [facility] Acetaminophen 325 MG / Hydrocodone Chilo trate 5 MG Oral Tablet Hydrocodone- Acetaminophen 5-325 MG Hydrocodone-Acetaminophen 5-325 MG 11/02/2020 12:00:00 AM EST 1.0 {tablet_as_needed} active Hydrocodone-Acetaminophen 5-325 MG eCW1 ([facility]) 5-325 mg 11/02/2020 12:00:00 AM EST tablet 60 TAKE ONE TABLET BY MOUTH EVERY 12 HOURS NEEDED , MAXIMUM DAILY DOSE = 2 TABLETS TAKE ONE TABLET BY MOUTH EVERY 12 HOURS NEEDED , MAXIMUM DAILY DOSE = 2 TABLETS SOLD: 11/03/2020 [facility] Acetaminophen 325 MG / Hydrocodone Chilo trate 5 MG Oral Tablet Hydrocodone- Acetaminophen 5-325 MG Hydrocodone-Acetaminophen 5-325 MG 11/02/2020 12:00:00 AM EST 1.0 {tablet_as_needed} active Hydrocodone-Acetaminophen 5-325 MG eCW1 ([facility]) 5-325 mg 10/16/2020 12:00:00 AM EST tablet 14 TAKE ONE TABLET BY MOUTH EVERY 12 HOURS NEEDED, MAXIMUM DAILY DOSE = TWO TABLETS TAKE ONE TABLET BY MOUTH EVERY 12 HOURS NEEDED, MAXIMUM DAILY DOSE = TWO TABLETS SOLD: 10/16/2020 [facility] [place] 5-325 MG UNK 10/12/2020 12:00:00 AM EST 1.0 {tablet_as _needed} suspended [place] 5-325 MG eCW1 ([facility]) [place] 5-325 MG UNK 10/12/2020 12:00:00 AM EST 1.0 {tablet_as _needed} suspended [place] 5-325 MG eCW1 ([facility]) Acetaminophen 325 MG / Hydrocodone Chilo trate 5 MG Oral Tablet [[place]] [place] 5- 325 MG [place] 5-325 MG 10/12/2020 12:00:00 AM EST 1.0 {tablet_as_needed} active [place] 5-325 MG eCW1 ([facility]) [place] 5-325 MG UNK 10/12/2020 12:00:00 AM EST 1.0 {tablet_as _needed} suspended [place] 5-325 MG eCW1 ([facility]) [place] 5-325 MG UNK 10/12/2020 12:00:00 AM EST 1.0 {tablet_as _needed} suspended [place] 5-325 MG eCW1 ([facility]) [place] 5-325 MG UNK 10/12/2020 12:00:00 AM EST 1.0 {tablet_as _needed} suspended [place] 5-325 MG eCW1 ([facility]) [place] 5-325 MG UNK 10/12/2020 12:00:00 AM EST 1.0 {tablet_as _needed} suspended [place] 5-325 MG eCW1 ([facility]) [place] 5-325 MG UNK 10/12/2020 12:00:00 AM EST 1.0 {tablet_as _needed} suspended [place] 5-325 MG eCW1 ([facility]) [place] 5-325 MG UNK 10/12/2020 12:00:00 AM EST 1.0 {tablet_as _needed} active [place] 5-325 MG eCW1 ([facility]) [place] 5-325 MG UNK 10/12/2020 12:00:00 AM EST 1.0 {tablet_as _needed} suspended [place] 5-325 MG eCW1 ([facility]) [place] 5-325 MG UNK 10/12/2020 12:00:00 AM EST 1.0 {tablet_as _needed} active [place] 5-325 MG eCW1 ([facility]) [place] 5-325 MG UNK 10/12/2020 12:00:00 AM EST 1.0 {tablet_as _needed} active [place] 5-325 MG eCW1 ([facility]) [place] 5-325 MG UNK 10/12/2020 12:00:00 AM EST 1.0 {tablet_as _needed} suspended [place] 5-325 MG eCW1 ([facility]) [place] 5-325 MG UNK 10/12/2020 12:00:00 AM EST 1.0 {tablet_as _needed} suspended [place] 5-325 MG eCW1 ([facility]) [place] 5-325 MG UNK 10/12/2020 12:00:00 AM EST 1.0 {tablet_as _needed} suspended [place] 5-325 MG eCW1 ([facility]) 168 HR Buprenorphine 0.005 MG/HR Transdermal Patch [Bu Trans] [place] 5 MCG/HR [place] 5 MCG/HR 09/29/2020 12:00:00 AM EST 1.0 {patch_to_skin} suspended [place] 5 MCG/HR eCW1 ([facility]) 168 HR Buprenorphine 0.005 MG/HR Transdermal Patch [Bu Trans] [place] 5 MCG/HR [place] 5 MCG/HR 09/29/2020 12:00:00 AM EST 1.0 {patch_to_skin} active [place] 5 MCG/HR eCW1 ([facility]) 168 HR Buprenorphine 0.005 MG/HR Transdermal Patch [Bu Trans] [place] 5 MCG/HR [place] 5 MCG/HR 09/29/2020 12:00:00 AM EST 1.0 {patch_to_skin} suspended [place] 5 MCG/HR eCW1 ([facility]) 168 HR Buprenorphine 0.005 MG/HR Transdermal Patch [Bu Trans] [place] 5 MCG/HR [place] 5 MCG/HR 09/29/2020 12:00:00 AM EST 1.0 {patch_to_skin} suspended [place] 5 MCG/HR eCW1 ([facility]) 168 HR Buprenorphine 0.005 MG/HR Transdermal Patch [Bu Trans] [place] 5 MCG/HR [place] 5 MCG/HR 09/29/2020 12:00:00 AM EST 1.0 {patch_to_skin} suspended [place] 5 MCG/HR eCW1 ([facility]) 168 HR Buprenorphine 0.005 MG/HR Transdermal Patch [Bu Trans] [place] 5 MCG/HR [place] 5 MCG/HR 09/29/2020 12:00:00 AM EST 1.0 {patch_to_skin} suspended [place] 5 MCG/HR eCW1 ([facility]) 168 HR Buprenorphine 0.005 MG/HR Transdermal Patch [Bu Trans] [place] 5 MCG/HR [place] 5 MCG/HR 09/29/2020 12:00:00 AM EST 1.0 {patch_to_skin} active [place] 5 MCG/HR eCW1 ([facility]) 168 HR Buprenorphine 0.005 MG/HR Transdermal Patch [Bu Trans] [place] 5 MCG/HR [place] 5 MCG/HR 09/29/2020 12:00:00 AM EST 1.0 {patch_to_skin} suspended [place] 5 MCG/HR eCW1 ([facility]) 168 HR Buprenorphine 0.005 MG/HR Transdermal Patch [Bu Trans] [place] 5 MCG/HR [place] 5 MCG/HR 09/29/2020 12:00:00 AM EST 1.0 {patch_to_skin} active [place] 5 MCG/HR eCW1 ([facility]) 168 HR Buprenorphine 0.005 MG/HR Transdermal Patch [Bu Trans] [place] 5 MCG/HR [place] 5 MCG/HR 09/29/2020 12:00:00 AM EST 1.0 {patch_to_skin} suspended [place] 5 MCG/HR eCW1 ([facility]) 168 HR Buprenorphine 0.005 MG/HR Transdermal Patch [Bu Trans] [place] 5 MCG/HR [place] 5 MCG/HR 09/29/2020 12:00:00 AM EST 1.0 {patch_to_skin} suspended [place] 5 MCG/HR eCW1 ([facility]) 168 HR Buprenorphine 0.005 MG/HR Transdermal Patch [Bu Trans] [place] 5 MCG/HR [place] 5 MCG/HR 09/29/2020 12:00:00 AM EST 1.0 {patch_to_skin} suspended [place] 5 MCG/HR eCW1 ([facility]) 168 HR Buprenorphine 0.005 MG/HR Transdermal Patch [Bu Trans] [place] 5 MCG/HR [place] 5 MCG/HR 09/29/2020 12:00:00 AM EST 1.0 {patch_to_skin} suspended [place] 5 MCG/HR eCW1 ([facility]) 168 HR Buprenorphine 0.005 MG/HR Transdermal Patch [Bu Trans] [place] 5 MCG/HR [place] 5 MCG/HR 09/29/2020 12:00:00 AM EST 1.0 {patch_to_skin} active [place] 5 MCG/HR eCW1 ([facility]) 168 HR Buprenorphine 0.005 MG/HR Transdermal Patch [Bu Trans] [place] 5 MCG/HR [place] 5 MCG/HR 09/29/2020 12:00:00 AM EST 1.0 {patch_to_skin} suspended [place] 5 MCG/HR eCW1 ([facility]) 168 HR Buprenorphine 0.005 MG/HR Transdermal Patch [Bu Trans] [place] 5 MCG/HR [place] 5 MCG/HR 09/29/2020 12:00:00 AM EST 1.0 {patch_to_skin} suspended [place] 5 MCG/HR eCW1 ([facility]) 10 mg 09/28/2020 12:00:00 AM EST tablet 30 TAKE ONE TABLET BY MOUTH EVERY DAY TAKE ONE TABLET BY MOUTH EVERY DAY SOLD: 12/04/2020 [facility] 10 mg 09/28/2020 12:00:00 AM EST tablet 30 TAKE ONE TABLET BY MOUTH EVERY DAY TAKE ONE TABLET BY MOUTH EVERY DAY SOLD: 10/31/2020 [facility] 24 HR lamotrigine 200 MG Extended Release Oral Tablet LAMOTR IGINE 09/28/2020 12:00:00 AM EST tablet extended release 24hr 30 BARB E ONE TABLET BY MOUTH EVERY DAY TAKE ONE TABLET BY MOUTH EVERY DAY SOLD: 10/31/2020 [facility] 24 HR lamotrigine 200 MG Extended Release Oral Tablet LAMOTR IGINE 09/28/2020 12:00:00 AM EST tablet extended release 24hr 30 BARB E ONE TABLET BY MOUTH EVERY DAY TAKE ONE TABLET BY MOUTH EVERY DAY SOLD: 12/04/2020 [facility] 24 HR lamotrigine 200 MG Extended Release Oral Tablet LAMOTR IGINE 09/28/2020 12:00:00 AM EST tablet extended release 24hr 30 BARB E ONE TABLET BY MOUTH EVERY DAY TAKE ONE TABLET BY MOUTH EVERY DAY SOLD: 09/28/2020 [facility] 10 mg 09/28/2020 12:00:00 AM EST tablet 30 TAKE ONE TABLET BY MOUTH EVERY DAY TAKE ONE TABLET BY MOUTH EVERY DAY SOLD: 09/28/2020 [facility] Fluoxetine 10 MG Oral Capsule fluoxetine 09/26/2020 12:00:00 AM EST 10 mg completed <td ID="Medicati onRxNorm_1">691175</td><td ID="MedicationMedication_1">fluoxetine</td><td ID="MedicationRoute_1"></td><td ID="MedicationRouteConcept_1"></td><td ID="MedicationStartDate_1">09/26/2020</td><td ID="MedicationStopDate_1"></td><td ID="MedicationDosageFrequency_1"></td><td ID="MedicationDuration_1">30</td><td ID="MedicationFormulaStrength_1">10 mg</td><td ID="MedicationDosageForm_1">capsule</td><td ID="MedicationDosageFormCode_1"></td><td ID="MedicationDosageDescription_1"></td><td ID="MedicationMedicationId_1">[id number]</td><td ID="MedicationAccount_1">[id number]</td><td ID="MedicationNpid_1">[id number]</td><td ID="MedicationAuthorFirstName_1">Bart</td><td ID="MedicationAuthorLastName_1">Pantoja</td><td ID="MedicationTaxonomyCode_1">[id number]</td><td ID="MedicationTaxonomyDesc_1">Nurse Practitioner</td><td ID="MedicationPhoneNumber_1">[phone]</td> [facility] 75 mcg 09/26/2020 12:00:00 AM EST tablet 30 TAKE ONE TABLET BY MOUTH EVERY DAY ON AN EMPTY STOMACH TAKE ONE TABLET BY MOUTH EVERY DAY ON AN EMPTY STOMACH SOLD: 12/04/2020 [facility] 75 mcg 09/26/2020 12:00:00 AM EST tablet 30 TAKE ONE TABLET BY MOUTH EVERY DAY ON AN EMPTY STOMACH TAKE ONE TABLET BY MOUTH EVERY DAY ON AN EMPTY STOMACH SOLD: 10/31/2020 [facility] 75 mcg 09/26/2020 12:00:00 AM EST tablet 30 TAKE ONE TABLET BY MOUTH EVERY DAY ON AN EMPTY STOMACH TAKE ONE TABLET BY MOUTH EVERY DAY ON AN EMPTY STOMACH SOLD: 09/28/2020 [facility] 10 mg 09/18/2020 12:00:00 AM EST capsule 30 TAKE ONE CAPSULE BY MOUTH EVERY DAY TAKE ONE CAPSULE BY MOUTH EVERY DAY SOLD: 09/23/2020 [facility] 10 mg 09/18/2020 12:00:00 AM EST capsule 30 TAKE ONE CAPSULE BY MOUTH EVERY DAY TAKE ONE CAPSULE BY MOUTH EVERY DAY SOLD: 10/31/2020 [facility] 10 mg 09/18/2020 12:00:00 AM EST capsule 30 TAKE ONE CAPSULE BY MOUTH EVERY DAY TAKE ONE CAPSULE BY MOUTH EVERY DAY SOLD: 12/04/2020 [facility] 50 mg 09/05/2020 12:00:00 AM EST tablet 30 TAKE ONE TABLET BY MOUTH EVERY DAY TAKE ONE TABLET BY MOUTH EVERY DAY SOLD: 10/11/2020 [facility] 625 mg 09/05/2020 12:00:00 AM EST tablet 60 TAKE TWO TABLETS BY MOUTH EVERY DAY TAKE TWO TABLETS BY MOUTH EVERY DAY SOLD: 12/26/2020 [facility] 50 mg 09/05/2020 12:00:00 AM EST tablet 30 TAKE ONE TABLET BY MOUTH EVERY DAY TAKE ONE TABLET BY MOUTH EVERY DAY SOLD: 09/12/2020 [facility] 50 mg 09/05/2020 12:00:00 AM EST tablet 30 TAKE ONE TABLET BY MOUTH EVERY DAY TAKE ONE TABLET BY MOUTH EVERY DAY SOLD: 02/26/2021 [facility] 625 mg 09/05/2020 12:00:00 AM EST tablet 60 TAKE TWO TABLETS BY MOUTH EVERY DAY TAKE TWO TABLETS BY MOUTH EVERY DAY SOLD: 01/29/2021 [facility] 50 mg 09/05/2020 12:00:00 AM EST tablet 30 TAKE ONE TABLET BY MOUTH EVERY DAY TAKE ONE TABLET BY MOUTH EVERY DAY SOLD: 01/29/2021 [facility] 625 mg 09/05/2020 12:00:00 AM EST tablet 60 TAKE TWO TABLETS BY MOUTH EVERY DAY TAKE TWO TABLETS BY MOUTH EVERY DAY SOLD: 02/26/2021 [facility] 625 mg 09/05/2020 12:00:00 AM EST tablet 60 TAKE TWO TABLETS BY MOUTH EVERY DAY TAKE TWO TABLETS BY MOUTH EVERY DAY SOLD: 09/12/2020 [facility] 50 mg 09/05/2020 12:00:00 AM EST tablet 30 TAKE ONE TABLET BY MOUTH EVERY DAY TAKE ONE TABLET BY MOUTH EVERY DAY SOLD: 12/26/2020 [facility] 625 mg 09/05/2020 12:00:00 AM EST tablet 60 TAKE TWO TABLETS BY MOUTH EVERY DAY TAKE TWO TABLETS BY MOUTH EVERY DAY SOLD: 11/16/2020 [facility] 50 mg 09/05/2020 12:00:00 AM EST tablet 30 TAKE ONE TABLET BY MOUTH EVERY DAY TAKE ONE TABLET BY MOUTH EVERY DAY SOLD: 11/16/2020 [facility] 625 mg 09/05/2020 12:00:00 AM EST tablet 60 TAKE TWO TABLETS BY MOUTH EVERY DAY TAKE TWO TABLETS BY MOUTH EVERY DAY SOLD: 10/11/2020 [facility] 37.5-25 mg 09/04/2020 12:00:00 AM EST capsule 30 TAKE ONE TABLET BY MOUTH EVERY DAY TAKE ONE TABLET BY MOUTH EVERY DAY SOLD: 11/16/2020 [facility] 37.5-25 mg 09/04/2020 12:00:00 AM EST capsule 30 TAKE ONE TABLET BY MOUTH EVERY DAY TAKE ONE TABLET BY MOUTH EVERY DAY SOLD: 09/12/2020 [facility] 37.5-25 mg 09/04/2020 12:00:00 AM EST capsule 30 TAKE ONE TABLET BY MOUTH EVERY DAY TAKE ONE TABLET BY MOUTH EVERY DAY SOLD: 10/11/2020 [facility] 5 mg 08/28/2020 12:00:00 AM EST tablet 60 TAKE ONE TABLET BY MOUTH TWICE A DAY TAKE ONE TABLET BY MOUTH TWICE A DAY SOLD: 08/30/2020 [facility] 5 mg 08/28/2020 12:00:00 AM EST tablet 60 TAKE ONE TABLET BY MOUTH TWICE A DAY TAKE ONE TABLET BY MOUTH TWICE A DAY SOLD: 09/28/2020 [facility] 5 mg 08/28/2020 12:00:00 AM EST tablet 60 TAKE ONE TABLET BY MOUTH TWICE A DAY TAKE ONE TABLET BY MOUTH TWICE A DAY SOLD: 10/31/2020 [facility] quetiapine 100 MG Oral Tablet quetiapine 08/24/2020 12:00:00 AM EST 100 mg completed <td ID="Medicat ionRxNorm_2">[id number]</td><td ID="MedicationMedication_2">quetiapine</td><td ID="MedicationRoute_2"></td><td ID="MedicationRouteConcept_2"></td><td ID="MedicationStartDate_2">08/24/2020</td><td ID="MedicationStopDate_2"></td><td ID="MedicationDosageFrequency_2"></td><td ID="MedicationDuration_2">30</td><td ID="MedicationFormulaStrength_2">100 mg</td><td ID="MedicationDosageForm_2">tablet</td><td ID="MedicationDosageFormCode_2"></td><td ID="MedicationDosageDescription_2"></td><td ID="MedicationMedicationId_2">[id number]</td><td ID="MedicationAccount_2">[id number]</td><td ID="MedicationNpid_2">[id number]</td><td ID="MedicationAuthorFirstName_2">Bart</td><td ID="MedicationAuthorLastName_2">Pantoja</td><td ID="MedicationTaxonomyCode_2">[id number]</td><td ID="MedicationTaxonomyDesc_2">Nurse Practitioner</td><td ID="MedicationPhoneNumber_2">[phone]</td> [facility] quetiapine 100 MG Oral Tablet QUETIAPINE FUMARATE 08/18/2020 12: 00:00 AM EST tablet 45 TAKE ONE AND ONE-HALF TABLETS BY MOUTH EVERY DAY AT BEDTIME TAKE ONE AND ONE-HALF TABLETS BY MOUTH EVERY DAY AT BEDTIME SOLD: 08/25/2020 [facility] quetiapine 100 MG Oral Tablet QUETIAPINE FUMARATE 08/18/2020 12: 00:00 AM EST tablet 45 TAKE ONE AND ONE-HALF TABLETS BY MOUTH EVERY DAY AT BEDTIME TAKE ONE AND ONE-HALF TABLETS BY MOUTH EVERY DAY AT BEDTIME SOLD: 10/31/2020 [facility] quetiapine 100 MG Oral Tablet QUETIAPINE FUMARATE 08/18/2020 12: 00:00 AM EST tablet 45 TAKE ONE AND ONE-HALF TABLETS BY MOUTH EVERY DAY AT BEDTIME TAKE ONE AND ONE-HALF TABLETS BY MOUTH EVERY DAY AT BEDTIME SOLD: 09/23/2020 [facility] 24 HR lamotrigine 200 MG Extended Release Oral Tablet lamotr igine 08/14/2020 12:00:00 AM EST 200 mg by mouth completed <td ID="MedicationRxNorm_3">[id number]</td><td ID="MedicationMedication_3">lamotrigine</td><td ID="MedicationRoute_3">by mouth</td><td ID="MedicationRouteConcept_3">R58702</td><td ID="MedicationStartDate_3">08/14/2020</td><td ID="MedicationStopDate_3"></td><td ID="MedicationDosageFrequency_3">once a day</td><td ID="MedicationDuration_3"></td><td ID="MedicationFormulaStrength_3">200 mg</td><td ID="MedicationDosageForm_3">tablet extended release 24hr</td><td ID="MedicationDosageFormCode_3"></td><td ID="MedicationDosageDescription_3"></td><td ID="MedicationMedicationId_3">[id number]</td><td ID="MedicationAccount_3">[id number]</td><td ID="MedicationNpid_3">[id number]</td><td ID="MedicationAuthorFirstName_3">Bart</td><td ID="MedicationAuthorLastName_3">Pantoja</td><td ID="MedicationTaxonomyCode_3">[id number]</td><td ID="MedicationTaxonomyDesc_3"> Nurse Practitioner</td><td ID="MedicationPhoneNumber_3">[phone]</td> [facility] ([facility]) 24 HR lamotrigine 200 MG Extended Release Oral Tablet LAMOTR IGINE 08/14/2020 12:00:00 AM EST tablet extended release 24hr 30 BARB E ONE TABLET BY MOUTH EVERY DAY TAKE ONE TABLET BY MOUTH EVERY DAY SOLD: 08/25/2020 [facility] 24 HR lamotrigine 200 MG Extended Release Oral Tablet LAMOTR IGINE 07/11/2020 12:00:00 AM EDT tablet extended release 24hr 30 BARB E ONE TABLET BY MOUTH EVERY DAY TAKE ONE TABLET BY MOUTH EVERY DAY SOLD: 07/14/2020 [facility] 2 mg 06/21/2020 12:00:00 AM EDT tablet 90 TAKE ONE TABLET BY MOUTH THREE TIMES A DAY NEEDED TAKE ONE TABLET BY MOUTH THREE TIMES A DAY NEEDED S OLD: 06/21/2020 [facility] tizanidine 2 MG Oral Tablet TIZANIDINE HCL 06/21/2020 12:00:00 AM EDT tablet 90 TAKE ONE TABLET BY MOUTH THREE TIMES A DAY NEEDED T [place] ONE TABLET BY MOUTH THREE TIMES A DAY NEEDED SOLD: 08/25/2020 [facility] tizanidine 2 MG Oral Tablet TIZANIDINE HCL 06/21/2020 12:00:00 AM EDT tablet 90 TAKE ONE TABLET BY MOUTH THREE TIMES A DAY NEEDED T [place] ONE TABLET BY MOUTH THREE TIMES A DAY NEEDED SOLD: 07/28/2020 [facility] 75 mcg 06/19/2020 12:00:00 AM EDT tablet 30 TAKE ONE TABLET BY MOUTH EVERY DAY ON AN EMPTY STOMACH TAKE ONE TABLET BY MOUTH EVERY DAY ON AN EMPTY STOMACH SOLD: 07/28/2020 [facility] 10 mg 06/19/2020 12:00:00 AM EDT tablet 30 TAKE ONE TABLET BY MOUTH EVERY DAY TAKE ONE TABLET BY MOUTH EVERY DAY SOLD: 08/25/2020 [facility] 500 mg 06/19/2020 12:00:00 AM EDT tablet 60 TAKE TWO TABLETS BY MOUTH THREE TIMES A DAY NEEDED TAKE TWO TABLETS BY MOUTH THREE TIMES A DAY NEEDED SOLD: 06/21/2020 [facility] 75 mcg 06/19/2020 12:00:00 AM EDT tablet 30 TAKE ONE TABLET BY MOUTH EVERY DAY ON AN EMPTY STOMACH TAKE ONE TABLET BY MOUTH EVERY DAY ON AN EMPTY STOMACH SOLD: 06/21/2020 [facility] 75 mcg 06/19/2020 12:00:00 AM EDT tablet 30 TAKE ONE TABLET BY MOUTH EVERY DAY ON AN EMPTY STOMACH TAKE ONE TABLET BY MOUTH EVERY DAY ON AN EMPTY STOMACH SOLD: 08/25/2020 [facility] 10 mg 06/19/2020 12:00:00 AM EDT tablet 30 TAKE ONE TABLET BY MOUTH EVERY DAY TAKE ONE TABLET BY MOUTH EVERY DAY SOLD: 06/21/2020 [facility] 10 mg 06/19/2020 12:00:00 AM EDT tablet 30 TAKE ONE TABLET BY MOUTH EVERY DAY TAKE ONE TABLET BY MOUTH EVERY DAY SOLD: 07/23/2020 [facility] 10 mg 06/17/2020 12:00:00 AM EDT capsule 30 TAKE ONE CAPSULE BY MOUTH EVERY DAY TAKE ONE CAPSULE BY MOUTH EVERY DAY SOLD: 06/19/2020 [facility] 10 mg 06/17/2020 12:00:00 AM EDT capsule 30 TAKE ONE CAPSULE BY MOUTH EVERY DAY TAKE ONE CAPSULE BY MOUTH EVERY DAY SOLD: 07/28/2020 [facility] 10 mg 06/17/2020 12:00:00 AM EDT capsule 30 TAKE ONE CAPSULE BY MOUTH EVERY DAY TAKE ONE CAPSULE BY MOUTH EVERY DAY SOLD: 08/30/2020 [facility] 24 HR lamotrigine 200 MG Extended Release Oral Tablet LAMOTR IGINE 06/02/2020 12:00:00 AM EDT tablet extended release 24hr 30 BARB E ONE TABLET BY MOUTH EVERY DAY TAKE ONE TABLET BY MOUTH EVERY DAY SOLD: 06/05/2020 [facility] 10 mg 05/25/2020 12:00:00 AM EDT capsule 60 TAKE TWO CAPSULES BY MOUTH EVERY DAY TAKE TWO CAPSULES BY MOUTH EVERY DAY SOLD: 07/06/2020 [facility] 10 mg 05/25/2020 12:00:00 AM EDT capsule 60 TAKE TWO CAPSULES BY MOUTH EVERY DAY TAKE TWO CAPSULES BY MOUTH EVERY DAY SOLD: 08/08/2020 [facility] quetiapine 100 MG Oral Tablet quetiapine 05/25/2020 12:00:00 AM EDT 100 mg by mouth completed <td ID="Medica tionRxNorm_3">[id number]</td><td ID="MedicationMedication_3">quetiapine</td><td ID="MedicationRoute_3">by mouth</td><td ID="MedicationRouteConcept_3">[id number]</td><td ID="MedicationStartDate_3">05/25/2020</td><td ID="MedicationStopDate_3">08/23/2020</td><td ID="MedicationDosageFrequency_3">at bedtime</td><td ID="MedicationDuration_3">30</td><td ID="MedicationFormulaStrength_3">100 mg</td><td ID="MedicationDosageForm_3">tablet</td><td ID="MedicationDosageFormCode_3"></td><td ID="MedicationDosageDescription_3"></td><td ID="MedicationMedicationId_3">[id number]</td><td ID="MedicationAccount_3">[id number]</td><td ID="MedicationNpid_3">[id number]</td><td ID="MedicationAuthorFirstName_3">Bart</td><td ID="MedicationAuthorLastName_3">Pantoja</td><td ID="MedicationTaxonomyCode_3">[id number]</td><td ID="MedicationTaxonomyDesc_3">Nurse Practitioner</td><td ID="MedicationPhoneNumber_3">[phone]</td> [facility] ([facility]) quetiapine 100 MG Oral Tablet QUETIAPINE FUMARATE 05/25/2020 12: 00:00 AM EDT tablet 45 TAKE 1&1/2 TABLETS BY MOUTH AT B EDTIME TAKE 1&1/2 TABLETS BY MOUTH AT BEDTIME SOLD: 06/23/2020 [facility] quetiapine 100 MG Oral Tablet QUETIAPINE FUMARATE 05/25/2020 12: 00:00 AM EDT tablet 45 TAKE 1&1/2 TABLETS BY MOUTH AT B EDTIME TAKE 1&1/2 TABLETS BY MOUTH AT BEDTIME SOLD: 07/28/2020 [facility] Fluoxetine 10 MG Oral Tablet fluoxetine 05/25/2020 12:00:00 AM EDT 10 mg by mouth completed <td ID="Medica tionRxNorm_2">[id number]</td><td ID="MedicationMedication_2">fluoxetine</td><td ID="MedicationRoute_2">by mouth</td><td ID="MedicationRouteConcept_2">[id number]</td><td ID="MedicationStartDate_2">05/25/2020</td><td ID="MedicationStopDate_2">08/23/2020</td><td ID="MedicationDosageFrequency_2">once a day</td><td ID="MedicationDuration_2">30</td><td ID="MedicationFormulaStrength_2">10 mg</td><td ID="MedicationDosageForm_2">tablet</td><td ID="MedicationDosageFormCode_2"></td><td ID="MedicationDosageDescription_2"></td><td ID="MedicationMedicationId_2">[id number]</td><td ID="MedicationAccount_2">[id number]</td><td ID="MedicationNpid_2">[id number]</td><td ID="MedicationAuthorFirstName_2">Bart</td><td ID="MedicationAuthorLastName_2">Pantoja</td><td ID="MedicationTaxonomyCode_2">[id number]</td><td ID="MedicationTaxonomyDesc_2">Nurse Practitioner</td><td ID="MedicationPhoneNumber_2">[phone]</td> [facility] ([facility]) 625 mg 02/29/2020 12:00:00 AM EDT tablet 60 TAKE TWO TABLETS BY MOUTH EVERY DAY TAKE TWO TABLETS BY MOUTH EVERY DAY SOLD: 06/09/2020 [facility] 625 mg 02/29/2020 12:00:00 AM EDT tablet 60 TAKE TWO TABLETS BY MOUTH EVERY DAY TAKE TWO TABLETS BY MOUTH EVERY DAY SOLD: 08/08/2020 [facility] 625 mg 02/29/2020 12:00:00 AM EDT tablet 60 TAKE TWO TABLETS BY MOUTH EVERY DAY TAKE TWO TABLETS BY MOUTH EVERY DAY SOLD: 07/07/2020 [facility] 5 mg 02/21/2020 12:00:00 AM EDT tablet 60 TAKE ONE TABLET BY MOUTH TWICE A DAY TAKE ONE TABLET BY MOUTH TWICE A DAY SOLD: 06/21/2020 [facility] 5 mg 02/21/2020 12:00:00 AM EDT tablet 60 TAKE ONE TABLET BY MOUTH TWICE A DAY TAKE ONE TABLET BY MOUTH TWICE A DAY SOLD: 07/28/2020 [facility] 50 mg 02/19/2020 12:00:00 AM EDT tablet 30 TAKE ONE TABLET BY MOUTH EVERY DAY TAKE ONE TABLET BY MOUTH EVERY DAY SOLD: 06/09/2020 [facility] 37.5-25 mg 02/19/2020 12:00:00 AM EDT tablet 30 TAKE ONE TABLET BY MOUTH EVERY DAY TAKE ONE TABLET BY MOUTH EVERY DAY SOLD: 06/09/2020 [facility] 37.5-25 mg 02/19/2020 12:00:00 AM EDT tablet 30 TAKE ONE TABLET BY MOUTH EVERY DAY TAKE ONE TABLET BY MOUTH EVERY DAY SOLD: 08/08/2020 [facility] 37.5-25 mg 02/19/2020 12:00:00 AM EDT tablet 30 TAKE ONE TABLET BY MOUTH EVERY DAY TAKE ONE TABLET BY MOUTH EVERY DAY SOLD: 07/07/2020 [facility] 50 mg 02/19/2020 12:00:00 AM EDT tablet 30 TAKE ONE TABLET BY MOUTH EVERY DAY TAKE ONE TABLET BY MOUTH EVERY DAY SOLD: 08/08/2020 [facility] 50 mg 02/19/2020 12:00:00 AM EDT tablet 30 TAKE ONE TABLET BY MOUTH EVERY DAY TAKE ONE TABLET BY MOUTH EVERY DAY SOLD: 07/06/2020 [facility] Acetaminophen 325 MG / Hydrocodone Chilo trate 5 MG Oral Tablet hydrocodone 5 mg- acetaminophen 325 mg tablet TAKE ONE TABLET BY MOUTH EVERY 12 HOURS NEEDED MAXIMUM DAILY DOSE 2 TABLETS hydrocodone 5 mg-acetaminophen 325 mg ta blet TAKE ONE TABLET BY MOUTH EVERY 12 HOURS NEEDED MAXIMUM DAILY DOSE 2 TABLETS completed acetam inophen 325 MG / hydrocodone bitartrate 5 MG Oral Tablet [facility] ([facility]) Baclofen 10 MG Oral Tablet baclofen 10 mg tablet baclofen 10 mg tablet completed baclofen 10 MG Oral Table t [place] ([facility]) oxcarbazepine 150 MG Oral Tablet oxcarbazepine 150 mg tablet oxcarbazepine 150 mg tablet completed oxcarbazepin e 150 MG Oral Tablet [facility] ([facility]) Baclofen 10 MG Oral Tablet baclofen 10 mg tablet baclofen 10 mg tablet completed baclofen 10 MG Oral Table t [facility] ([facility]) Levothyroxine Sodium 0.075 MG Oral Table t levothyroxine 75 mcg tablet TAKE ONE TABLET BY MOUTH EVERY DAY ON AN EMPTY STOMACH levothyroxine 75 mcg tablet TAKE ONE TABLET BY MOUTH EVERY DAY ON AN EMPTY STOMACH completed levothyroxine sodium 0.075 MG Oral Tablet [facility] ([facility]) methylprednisolone 4 mg tablets in a dose pack TAKE BY MOUTH DIRECTED [id number] completed methylpredniso lone 4 mg tablets in a dose pack [facility] ([facility]) oxcarbazepine 150 MG Oral Tablet oxcarbazepine 150 mg tablet oxcarbazepine 150 mg tablet completed oxcarbazepin e 150 MG Oral Tablet [facility] ([facility]) benzonatate 100 MG Oral Capsule benzonatate 100 mg cap kamran benzonatate 100 mg capsule completed benzonatate 10 0 MG Oral Capsule [facility] ([facility]) Acetaminophen 325 MG / Hydrocodone Chilo trate 5 MG Oral Tablet hydrocodone 5 mg- acetaminophen 325 mg tablet TAKE ONE TABLET BY MOUTH EVERY 12 HOURS NEEDED MAXIMUM DAILY DOSE 2 TABLETS hydrocodone 5 mg-acetaminophen 325 mg ta blet TAKE ONE TABLET BY MOUTH EVERY 12 HOURS NEEDED MAXIMUM DAILY DOSE 2 TABLETS completed acetam inophen 325 MG / hydrocodone bitartrate 5 MG Oral Tablet [facility]) 24 HR lamotrigine 100 MG Extended Releas e Oral Tablet lamotrigine ER 100 mg tablet,extended release 24 hr TAKE ONE TABLET BY MOUTH TWICE A DAY lamotrigine ER 100 mg tablet,extended release 24 hr TAKE ONE TABLET BY MOUTH TWICE A DAY completed 24 HR lamotrig ine 100 MG Extended Release Oral Tablet [facility]) oxcarbazepine 150 MG Oral Tablet oxcarbazepine 150 mg tablet oxcarbazepine 150 mg tablet completed oxcarbazepin e 150 MG Oral Tablet [facility] ([facility]) apixaban 5 MG Oral Tablet [Eliquis] Eliq uis 5 mg tablet TAKE ONE TABLET BY MOUTH TWICE A DAY Eliquis 5 mg tablet TAKE ONE TABLET BY MOUTH TWICE A DAY completed apixaban 5 MG Oral Tablet [E liquis] [facility] ([facility]) benzonatate 100 MG Oral Capsule benzonatate 100 mg cap kamran benzonatate 100 mg capsule completed benzonatate 10 0 MG Oral Capsule [facility] ([facility]) 12 HR Orphenadrine Citrate 100 MG Extend ed Release Oral Tablet orphenadrine citrate ER 100 mg tablet,extended release TAKE ONE TABLET BY MOUTH TWICE A DAY NEEDED FOR MUSCLE SPASMS orphenadrine citrate ER 100 mg tablet,ex tended release TAKE ONE TABLET BY MOUTH TWICE A DAY NEEDED FOR MUSCLE SPASMS completed 12 HR orphenad rine citrate 100 MG Extended Release Oral Tablet [facility] ([facility]) apixaban 5 MG Oral Tablet [Eliquis] Eliq uis 5 mg tablet TAKE ONE TABLET BY MOUTH TWICE A DAY Eliquis 5 mg tablet TAKE ONE TABLET BY MOUTH TWICE A DAY completed apixaban 5 MG Oral Tablet [E liquis]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 Creatinine-based formula (CKD-EPI) 82 mL/min/1.73m2 > or = 60 eGFR JOHANA ([facility]) Urea nitrogen/Creatinine [Mass Ratio] in Serum or Plasma not applic able 6-22 BUN/creatinine Ratio FLORAHOME ([facility]) Sodium [Moles/volume] in Serum or Plasma 139 mmol/L 135-146 [facility] Potassium [Moles/volume] in Serum or Plasma 3.4 mmol/L 3.5-5.3 Below low normal Potassium JOHANA ([facility]) Chloride [Moles/volume] in Serum or Plasma 96 mmol/L 98-110 Below low normal Chloride JOHANA ([facility]) Carbon dioxide, total [Moles/volume] in Serum or Plasma 34 mmol/ L 20-32 Above high normal Carbon Dioxide FLORAHOME ([facility]) Calcium [Mass/volume] in Serum or Plasma 9.5 mg/dL 8.6-10.2 Calcium [facility]) ID Date Data Source [id number] 05/02/2021 02:16:00 PM EDT [facility]) Name Value Range Interpretation Code Description Data Larissa rce(s) Supporting Document(s) Glucose [Mass/volume] in Serum or Plasma 92 mg/dL 65-99 Glucose FLORAHOME ([facility]) Urea nitrogen [Mass/volume] in Serum or Plasma 14 mg/dL 7-25 Urea Nitrogen (BUN) [facility]) Glomerular filtration rate/1.73 sq M.pre dicted among non-blacks [Volume Rate/Area] in Serum, Plasma or Blood by Creatinine-based formula (CKD-EPI) 70 mL/min/1.73m2 > or = 60 eGFR Non-afr. Swedish JOHANA ([facility]) Creatinine [Mass/volume] in Serum or Plasma 1.00 mg/dL 0.50-1.10 Creatinine FLORAHOME ([facility]) Glomerular filtration rate/1.73 sq M.pre dicted among blacks [Volume Rate/Area] in Serum, Plasma or Blood by Creatinine-based formula (CKD-EPI) 82 mL/min/1.73m2 > or = 60 eGFR JOHANA ([facility]) Urea nitrogen/Creatinine [Mass Ratio] in Serum or Plasma not applic able 6-22 BUN/creatinine Ratio FLORAHOME ([facility]) Sodium [Moles/volume] in Serum or Plasma 139 mmol/L 135-146 Sodium [facility]) Potassium [Moles/volume] in Serum or Plasma 3.4 mmol/L 3.5-5.3 Below low normal Potassium JOHANA ([facility]) Carbon dioxide, total [Moles/volume] in Serum or Plasma 34 mmol/ L 20-32 Above high normal Carbon Dioxide JOHANA ([facility]) Chloride [Moles/volume] in Serum or Plasma 96 mmol/L 98-110 Below low normal Chloride FLORAHOME ([facility]) Calcium [Mass/volume] in Serum or Plasma 9.5 mg/dL 8.6-10.2 Calcium [facility]) ID Date Data Source [id number] 05/02/2021 02:16:00 PM EDT [facility]) Name Value Range Interpretation Code Description Data Larissa rce(s) Supporting Document(s) Glucose [Mass/volume] in Serum or Plasma 92 mg/dL 65-99 Glucose [facility]) Urea nitrogen [Mass/volume] in Serum or Plasma 14 mg/dL 7-25 Urea Nitrogen (BUN) [facility]) Creatinine [Mass/volume] in Serum or Plasma 1.00 mg/dL 0.50-1.10 Creatinine JOHANA ([facility]) Glomerular filtration rate/1.73 sq M.pre dicted among non-blacks [Volume Rate/Area] in Serum, Plasma or Blood by Creatinine-based formula (CKD-EPI) 70 mL/min/1.73m2 > or = 60 eGFR Non-afr. Swedish JOHANA ([facility]) Urea nitrogen/Creatinine [Mass Ratio] in Serum or Plasma not applic able 6-22 BUN/creatinine Ratio JOHANA ([facility]) Glomerular filtration rate/1.73 sq M.pre dicted among blacks [Volume Rate/Area] in Serum, Plasma or Blood by Creatinine-based formula (CKD-EPI) 82 mL/min/1.73m2 > or = 60 eGFR JOHANA ([facility]) Sodium [Moles/volume] in Serum or Plasma 139 mmol/L 135-146 Sodium FLORAHOME ([facility]) Potassium [Moles/volume] in Serum or Plasma 3.4 mmol/L 3.5-5.3 Below low normal Potassium JOHANA ([facility]) Chloride [Moles/volume] in Serum or Plasma 96 mmol/L 98-110 Below low normal Chloride JOHANA ([facility]) Carbon dioxide, total [Moles/volume] in Serum or Plasma 34 mmol/ L 20-32 Above high normal Carbon Dioxide JOHANA ([facility]) Calcium [Mass/volume] in Serum or Plasma 9.5 mg/dL 8.6-10.2 Calcium FLORAHOME ([facility]) ID Date Data Source [id number] 05/02/2021 02:16:00 PM EDT FLORAHOME ([facility]) Name Value Range Interpretation Code Description Data Larissa rce(s) Supporting Document(s) Glucose [Mass/volume] in Serum or Plasma 92 mg/dL 65-99 [facility] Urea nitrogen [Mass/volume] in Serum or Plasma 14 mg/dL 7-25 [facility] Nitrogen (BUN) [facility] Creatinine [Mass/volume] in Serum or Plasma 1.00 mg/dL 0.50-1.10 Creatinine [facility]) Glomerular filtration rate/1.73 sq M.pre dicted among non-blacks [Volume Rate/Area] in Serum, Plasma or Blood by Creatinine-based formula (CKD-EPI) 70 mL/min/1.73m2 > or = 60 eGFR Non-afr. Swedish JOHANA ([facility]) Glomerular filtration rate/1.73 sq M.pre dicted among blacks [Volume Rate/Area] in Serum, Plasma or Blood by Creatinine-based formula (CKD-EPI) 82 mL/min/1.73m2 > or = 60 eGFR JOHANA ([facility]) Urea nitrogen/Creatinine [Mass Ratio] in Serum or Plasma not applic able 6-22 BUN/creatinine Ratio FLORAHOME ([facility]) Sodium [Moles/volume] in Serum or Plasma 139 mmol/L 135-146 Sodium FLORAHOME ([facility]) Potassium [Moles/volume] in Serum or Plasma 3.4 mmol/L 3.5-5.3 Below low normal Potassium FLORAHOME ([facility]) Chloride [Moles/volume] in Serum or Plasma 96 mmol/L 98-110 Below low normal Chloride FLORAHOME ([facility]) Carbon dioxide, total [Moles/volume] in Serum or Plasma 34 mmol/ L 20-32 Above high normal Carbon Dioxide FLOR[facility]OME ([facility]) Calcium [Mass/volume] in Serum or Plasma 9.5 mg/dL 8.6-10.2 Calcium FL[place]OME ([facility]) ID Date Data Source [id number] 04/24/2021 05:47:00 AM EDT [facility]) Name Value Range Interpretation Code Description Data Larissa rce(s) Supporting Document(s) magnesium level 2.5 mg/dL 1.8-2.4 Above high normal Magnesium Lev el [facility]) ID Date Data Source [id number] 04/24/2021 05:47:00 AM EDT [facility]) Name Value Range Interpretation Code Description Data Larissa rce(s) Supporting Document(s) glucose, fasting 111 mg/dL 70-100 Above high normal Glucose, Fas ting JOHANA ([facility]) blood urea nitrogen 32 mg/dL 7-18 Above high normal Blood Ure a Nitrogen JOHANA ([facility]) creatinine for GFR 1.07 mg/dL 0.55-1.30 Creatinine for GF R JOHANA ([facility]) glomerular filtration rate > 60.0 >58 Glomerula r Filtration Rate JOHANA ([facility]) sodium level 136 mEq/L 136-145 Sodium Level JOHANA ([facility]) potassium serum 3.6 mEq/L 3.5-5.1 Potassium Serum ATHE ([facility]) chloride level 96 mEq/L 98-107 Below low normal Chloride Level FLOR[place]OME ([facility]) anion gap 10 mEq/L 8-16 Anion Gap JOHANA ([facility]) carbon dioxide level 30 mEq/L 21-32 Carbon Dioxide Level JOHANA ([facility]) calcium level 9.5 mg/dL 8.5-10.1 Calcium Level FLORAHOME ( [facility]) ID Date Data Source [id number] 04/24/2021 05:47:00 AM EDT [place] ([facility]) Name Value Range Interpretation Code Description Data Larissa rce(s) Supporting Document(s) white blood count 13.8 10 4.0-10.0 Above high normal White Blood Count JOHANA ([facility]) red blood count 4.57 10 4.00-5.40 Red Blood Count ATHE ([facility]) hemoglobin 13.1 g/dL 12.0-15.5 Hemoglobin JOHANA ([facility]) hematocrit 41.2 % 36.0-47.0 Hematocrit JOHANA ([facility]) mean corpuscular volume 90.2 fL 80.0-96.0 Mean Corpusc ular Volume JOHANA ([facility]) mean corpuscular HGB conc 31.8 g/dL 32.0-36.5 Below low lin l Mean Corpuscular HGB Conc JOHANA ([facility]) mean corpuscular hemoglobin 28.7 pg 27.0-33.0 Mean Cor puscular Hemoglobin JOHANA ([facility]) red cell distribution width 15.1 % 11.5-14.5 Above high no rmal Red Cell Distribution Width JOHANA ([facility]) platelet count, automated 409 10 150-450 Platelet C ount, Automated JOHANA ([facility]) nucleated red blood cell % 0.0 % 0-0 Nucleated Red Blood Cell % FLOR[place]OME ([facility]) ID Date Data Source [id number] 04/24/2021 05:47:00 AM EDT [facility]) Name Value Range Interpretation Code Description Data Larissa rce(s) Supporting Document(s) magnesium level 2.5 mg/dL 1.8-2.4 Above high normal Magnesium Lev el [facility]) ID Date Data Source [id number] 04/24/2021 05:47:00 AM EDT [facility]) Name Value Range Interpretation Code Description Data Larissa rce(s) Supporting Document(s) glucose, fasting 111 mg/dL 70-100 Above high normal Glucose, Fas ting FLOR[place]OME ([facility]) blood urea nitrogen 32 mg/dL 7-18 Above high normal Blood Ure a Nitrogen FLOR[place]OME ([facility]) creatinine for GFR 1.07 mg/dL 0.55-1.30 Creatinine for GF R FLORAHOME ([facility]) glomerular filtration rate > 60.0 >58 Glomerula r Filtration Rate JOHANA ([facility]) sodium level 136 mEq/L 136-145 Sodium Level JOHANA ([facility]) potassium serum 3.6 mEq/L 3.5-5.1 Potassium Serum ATH NA [facility]) chloride level 96 mEq/L 98-107 Below low normal Chloride Level FLOR[place]OME ([facility]) carbon dioxide level 30 mEq/L 21-32 Carbon Dioxide Level JOHANA ([facility]) anion gap 10 mEq/L 8-16 Anion Gap JOH[facility] ([facility]) calcium level 9.5 mg/dL 8.5-10.1 Calcium Level FLORAHOME ( [facility]) ID Date Data Source [id number] 04/24/2021 05:47:00 AM EDT JOHANA ([facility]) Name Value Range Interpretation Code Description Data Larissa rce(s) Supporting Document(s) white blood count 13.8 10 4.0-10.0 Above high normal White Blood Count JOHANA ([facility]) red blood count 4.57 10 4.00-5.40 Red Blood Count ATHE ([facility]) hemoglobin 13.1 g/dL 12.0-15.5 Hemoglobin JOHANA ([facility]) hematocrit 41.2 % 36.0-47.0 Hematocrit JOHANA ([facility]) mean corpuscular volume 90.2 fL 80.0-96.0 Mean Corpusc ular Volume JOHANA ([facility]) mean corpuscular hemoglobin 28.7 pg 27.0-33.0 Mean Cor puscular Hemoglobin JOHANA ([facility]) mean corpuscular HGB conc 31.8 g/dL 32.0-36.5 Below low lin l Mean Corpuscular HGB Conc JOHANA ([facility]) red cell distribution width 15.1 % 11.5-14.5 Above high no rmal Red Cell Distribution Width JOHANA ([facility]) platelet count, automated 409 10 150-450 Platelet C ount, Automated JOHANA ([facility]) nucleated red blood cell % 0.0 % 0-0 Nucleated Red Blood Cell % FLOR[place]OME ([facility]) ID Date Data Source [id number] 04/24/2021 05:47:00 AM EDT [place]OME ([facility]) Name Value Range Interpretation Code Description Data Larissa rce(s) Supporting Document(s) magnesium level 2.5 mg/dL 1.8-2.4 Above high normal Magnesium Lev el JOHANA ([facility]) ID Date Data Source [id number] 04/24/2021 05:47:00 AM EDT [place]OME ([facility]) Name Value Range Interpretation Code Description Data Larissa rce(s) Supporting Document(s) glucose, fasting 111 mg/dL 70-100 Above high normal Glucose, Fas ting JOHANA ([facility]) blood urea nitrogen 32 mg/dL 7-18 Above high normal Blood Ure a Nitrogen JOHANA ([facility]) creatinine for GFR 1.07 mg/dL 0.55-1.30 Creatinine for GF R JOHANA ([facility]) glomerular filtration rate > 60.0 >58 Glomerula r Filtration Rate JOHANA ([facility]) sodium level 136 mEq/L 136-145 Sodium Level JOHANA ([facility]) potassium serum 3.6 mEq/L 3.5-5.1 Potassium Serum ATHE NA ([facility]) chloride level 96 mEq/L 98-107 Below low normal Chloride Level FLORAHOME ([facility]) carbon dioxide level 30 mEq/L 21-32 Carbon Dioxide Level JOHANA ([facility]) anion gap 10 mEq/L 8-16 Anion Gap JOHANA ([facility]) calcium level 9.5 mg/dL 8.5-10.1 Calcium Level FLORAHOME ( [facility]) ID Date Data Source [id number] 04/24/2021 05:47:00 AM EDT [place]OME ([facility]) Name Value Range Interpretation Code Description Data Larissa rce(s) Supporting Document(s) white blood count 13.8 10 4.0-10.0 Above high normal White Blood Count JOHANA ([facility]) red blood count 4.57 10 4.00-5.40 Red Blood Count ATHE NA ([facility]) hemoglobin 13.1 g/dL 12.0-15.5 Hemoglobin JOHANA ([facility]) hematocrit 41.2 % 36.0-47.0 Hematocrit JOHANA ([facility]) mean corpuscular volume 90.2 fL 80.0-96.0 Mean Corpusc ular Volume JOHANA ([facility]) mean corpuscular hemoglobin 28.7 pg 27.0-33.0 Mean Cor puscular Hemoglobin FLORAHOME ([facility]) mean corpuscular HGB conc 31.8 g/dL 32.0-36.5 Below low lin l Mean Corpuscular HGB Conc FLORAHOME ([facility]) red cell distribution width 15.1 % 11.5-14.5 Above high no rmal Red Cell Distribution Width FLOR[place]OME ([facility]) platelet count, automated 409 10 150-450 Platelet C ount, Automated JOHANA ([facility]) nucleated red blood cell % 0.0 % 0-0 Nucleated Red Blood Cell % [place]OME ([facility]) ID Date Data Source [id number] 04/24/2021 05:47:00 AM EDT [facility]) Name Value Range Interpretation Code Description Data Larissa rce(s) Supporting Document(s) magnesium level 2.5 mg/dL 1.8-2.4 Above high normal Magnesium Lev el [facility]) ID Date Data Source [id number] 04/24/2021 05:47:00 AM EDT [facility]) Name Value Range Interpretation Code Description Data Larissa rce(s) Supporting Document(s) glucose, fasting 111 mg/dL 70-100 Above high normal Glucose, Fas ting FLORAHOME ([facility]) blood urea nitrogen 32 mg/dL 7-18 Above high normal Blood Ure a Nitrogen FLORAHOME ([facility]) creatinine for GFR 1.07 mg/dL 0.55-1.30 Creatinine for GF R JOHANA ([facility]) glomerular filtration rate > 60.0 >58 Glomerula r Filtration Rate JOHANA ([facility]) sodium level 136 mEq/L 136-145 Sodium Level JOHANA ([facility]) potassium serum 3.6 mEq/L 3.5-5.1 Potassium Serum ATH NA ([facility]) chloride level 96 mEq/L 98-107 Below low normal Chloride Level FLORAHOME ([facility]) carbon dioxide level 30 mEq/L 21-32 Carbon Dioxide Level FLOR[place]OME ([facility]) anion gap 10 mEq/L 8-16 Anion Gap JOHANA ([facility]) calcium level 9.5 mg/dL 8.5-10.1 Calcium Level JOHANA ( [facility]) ID Date Data Source [id number] 04/24/2021 05:47:00 AM EDT JOHANA ([facility]) Name Value Range Interpretation Code Description Data Larissa rce(s) Supporting Document(s) white blood count 13.8 10 4.0-10.0 Above high normal White Blood Count JOHANA ([facility]) red blood count 4.57 10 4.00-5.40 Red Blood Count ATHE ([facility]) hemoglobin 13.1 g/dL 12.0-15.5 Hemoglobin JOHANA ([facility]) hematocrit 41.2 % 36.0-47.0 Hematocrit JOHANA ([facility]) mean corpuscular volume 90.2 fL 80.0-96.0 Mean Corpusc ular Volume JOHANA ([facility]) mean corpuscular hemoglobin 28.7 pg 27.0-33.0 Mean Cor puscular Hemoglobin JOHANA ([facility]) mean corpuscular HGB conc 31.8 g/dL 32.0-36.5 Below low lin l Mean Corpuscular HGB Conc JOHANA ([facility]) red cell distribution width 15.1 % 11.5-14.5 Above high no rmal Red Cell Distribution Width JOHANA ([facility]) platelet count, automated 409 10 150-450 Platelet C ount, Automated JOHANA ([facility]) nucleated red blood cell % 0.0 % 0-0 Nucleated Red Blood Cell % JOHANA ([facility]) ID Date Data Source [id number] 04/24/2021 05:47:00 AM EDT JOHANA ([facility]) Name Value Range Interpretation Code Description Data Larissa rce(s) Supporting Document(s) magnesium level 2.5 mg/dL 1.8-2.4 Above high normal Magnesium Lev el JOHANA ([facility]) ID Date Data Source [id number] 04/24/2021 05:47:00 AM EDT [facility]) Name Value Range Interpretation Code Description Data Larissa rce(s) Supporting Document(s) glucose, fasting 111 mg/dL 70-100 Above high normal Glucose, Fas ting JOHANA ([facility]) blood urea nitrogen 32 mg/dL 7-18 Above high normal Blood Ure a Nitrogen JOHANA ([facility]) creatinine for GFR 1.07 mg/dL 0.55-1.30 Creatinine for GF R JOHANA ([facility]) glomerular filtration rate > 60.0 >58 Glomerula r Filtration Rate JOHANA ([facility]) sodium level 136 mEq/L 136-145 Sodium Level JOHANA ([facility]) potassium serum 3.6 mEq/L 3.5-5.1 Potassium Serum ATHE ([facility]) carbon dioxide level 30 mEq/L 21-32 Carbon Dioxide Level JOHANA ([facility]) chloride level 96 mEq/L 98-107 Below low normal Chloride Level JOHANA ([facility]) anion gap 10 mEq/L 8-16 Anion Gap JOHANA ([facility]) calcium level 9.5 mg/dL 8.5-10.1 Calcium Level FLORAHOME ( [facility]) ID Date Data Source [id number] 04/24/2021 05:47:00 AM EDT [place]OME ([facility]) Name Value Range Interpretation Code Description Data Larissa rce(s) Supporting Document(s) white blood count 13.8 10 4.0-10.0 Above high normal White Blood Count JOHANA ([facility]) red blood count 4.57 10 4.00-5.40 Red Blood Count ATHE ([facility]) hemoglobin 13.1 g/dL 12.0-15.5 Hemoglobin FLORAHOME ([facility]) hematocrit 41.2 % 36.0-47.0 Hematocrit JOHANA ([facility]) mean corpuscular volume 90.2 fL 80.0-96.0 Mean Corpusc ular Volume JOHANA ([facility]) mean corpuscular hemoglobin 28.7 pg 27.0-33.0 Mean Cor puscular Hemoglobin JOHANA ([facility]) mean corpuscular HGB conc 31.8 g/dL 32.0-36.5 Below low lin l Mean Corpuscular HGB Conc JOHANA ([facility]) red cell distribution width 15.1 % 11.5-14.5 Above high no rmal Red Cell Distribution Width JOHANA ([facility]) platelet count, automated 409 10 150-450 Platelet C ount, Automated JOHANA ([facility]) nucleated red blood cell % 0.0 % 0-0 Nucleated Red Blood Cell % FLORAHOME ([facility]) ID Date Data Source [id number] 04/23/2021 03:26:00 PM EDT FLOR[place]OME ([facility]) Name Value Range Interpretation Code Description Data Larissa rce(s) Supporting Document(s) magnesium level 2.2 mg/dL 1.8-2.4 Magnesium Level ATHE NA ([facility]) ID Date Data Source [id number] 04/23/2021 03:26:00 PM EDT FLOR[place]OME ([facility]) Name Value Range Interpretation Code Description Data Larissa rce(s) Supporting Document(s) glucose, fasting 233 mg/dL 70-100 Above high normal Glucose, Fas ting JOHANA ([facility]) blood urea nitrogen 32 mg/dL 7-18 Above high normal Blood Ure a Nitrogen JOHANA ([facility]) creatinine for GFR 1.34 mg/dL 0.55-1.30 Above high normal Creatinine for GFR JOHANA ([facility]) glomerular filtration rate >58 Below low normal Nay merular Filtration Rate JOHANA ([facility]) sodium level 137 mEq/L 136-145 Sodium Level JOHANA ([facility]) potassium serum 3.5 mEq/L 3.5-5.1 Potassium Serum ATHE NA ([facility]) chloride level 97 mEq/L 98-107 Below low normal Chloride Level JOHANA ([facility]) carbon dioxide level 29 mEq/L 21-32 Carbon Dioxide Level JOHANA ([facility]) anion gap 11 mEq/L 8-16 Anion Gap JOHANA ([facility]) calcium level 8.6 mg/dL 8.5-10.1 Calcium Level JOHANA ( [facility]) ID Date Data Source [id number] 04/23/2021 03:26:00 PM EDT FLOR[place]OME ([facility]) Name Value Range Interpretation Code Description Data Larissa rce(s) Supporting Document(s) ionized calcium 4.2 mg/dL 4.5-5.3 Below low normal [facility] Date Data Source [id number] 04/23/2021 03:26:00 PM EDT [facility]) Name Value Range Interpretation Code Description Data Larissa rce(s) Supporting Document(s) magnesium level 2.2 mg/dL 1.8-2.4 Magnesium Level ATHE ([facility]) ID Date Data Source [id number] 04/23/2021 03:26:00 PM EDT [facility]) Name Value Range Interpretation Code Description Data Larissa rce(s) Supporting Document(s) glucose, fasting 233 mg/dL 70-100 Above high normal Glucose, Fas ting JOHANA ([facility]) blood urea nitrogen 32 mg/dL 7-18 Above high normal Blood Ure a Nitrogen JOHANA ([facility]) creatinine for GFR 1.34 mg/dL 0.55-1.30 Above high normal Creatinine for GFR JOHANA ([facility]) glomerular filtration rate >58 Below low normal Nay merular Filtration Rate JOHANA ([facility]) sodium level 137 mEq/L 136-145 Sodium Level JOHANA ([facility]) potassium serum 3.5 mEq/L 3.5-5.1 Potassium Serum ATHE NA ([facility]) chloride level 97 mEq/L 98-107 Below low normal Chloride Level JOHANA ([facility]) carbon dioxide level 29 mEq/L 21-32 Carbon Dioxide Level JOHANA ([facility]) anion gap 11 mEq/L 8-16 Anion Gap JOHANA ([facility]) calcium level 8.6 mg/dL 8.5-10.1 Calcium Level JOHANA ( [facility]) ID Date Data Source [id number] 04/23/2021 03:26:00 PM EDT FLOR[place]OME ([facility]) Name Value Range Interpretation Code Description Data Larissa rce(s) Supporting Document(s) ionized calcium 4.2 mg/dL 4.5-5.3 Below low normal Ionized Calciu m JOHANA ([facility]) ID Date Data Source [id number] 04/23/2021 03:26:00 PM EDT [facility]) Name Value Range Interpretation Code Description Data Larissa rce(s) Supporting Document(s) magnesium level 2.2 mg/dL 1.8-2.4 Magnesium Level ATHE ([facility]) ID Date Data Source [id number] 04/23/2021 03:26:00 PM EDT [facility]) Name Value Range Interpretation Code Description Data Larissa rce(s) Supporting Document(s) glucose, fasting 233 mg/dL 70-100 Above high normal Glucose, Fas ting JOHANA ([facility]) blood urea nitrogen 32 mg/dL 7-18 Above high normal Blood Ure a Nitrogen JOHANA ([facility]) creatinine for GFR 1.34 mg/dL 0.55-1.30 Above high normal Creatinine for GFR JOHANA ([facility]) glomerular filtration rate >58 Below low normal Nay merular Filtration Rate JOHANA ([facility]) sodium level 137 mEq/L 136-145 Sodium Level JOHANA ([facility]) potassium serum 3.5 mEq/L 3.5-5.1 Potassium Serum ATHE NA ([facility]) chloride level 97 mEq/L 98-107 Below low normal Chloride Level JOHANA ([facility]) carbon dioxide level 29 mEq/L 21-32 Carbon Dioxide Level JOHANA ([facility]) anion gap 11 mEq/L 8-16 Anion Gap JOHANA ([facility]) calcium level 8.6 mg/dL 8.5-10.1 Calcium Level JOHANA ( [facility]) ID Date Data Source [id number] 04/23/2021 03:26:00 PM EDT JOHANA ([facility]) Name Value Range Interpretation Code Description Data Larissa rce(s) Supporting Document(s) ionized calcium 4.2 mg/dL 4.5-5.3 Below low normal Ionized Calciu m JOHANA ([facility]) ID Date Data Source [id number] 04/23/2021 03:26:00 [facility] Name Value Range Interpretation Code Description Data Larissa rce(s) Supporting Document(s) magnesium level 2.2 mg/dL 1.8-2.4 Magnesium Level [facility] ([facility]) ID Date Data Source [id number] 04/23/2021 03:26:00 PM EDT [facility]) Name Value Range Interpretation Code Description Data Larissa rce(s) Supporting Document(s) glucose, fasting 233 mg/dL 70-100 Above high normal Glucose, Fas ting OJHANA ([facility]) blood urea nitrogen 32 mg/dL 7-18 Above high normal Blood Ure a Nitrogen JOHANA ([facility]) creatinine for GFR 1.34 mg/dL 0.55-1.30 Above high normal Creatinine for GFR JOHANA ([facility]) glomerular filtration rate >58 Below low normal Nay merular Filtration Rate JOHANA ([facility]) sodium level 137 mEq/L 136-145 Sodium Level JOHANA ([facility]) potassium serum 3.5 mEq/L 3.5-5.1 Potassium Serum ATHE NA ([facility]) chloride level 97 mEq/L 98-107 Below low normal Chloride Level JOHANA ([facility]) carbon dioxide level 29 mEq/L 21-32 Carbon Dioxide Level JOHANA ([facility]) anion gap 11 mEq/L 8-16 Anion Gap JOHANA ([facility]) calcium level 8.6 mg/dL 8.5-10.1 Calcium Level JOHANA ( [facility]) ID Date Data Source [id number] 04/23/2021 03:26:00 PM EDT [place]OME ([facility]) Name Value Range Interpretation Code Description Data Larissa rce(s) Supporting Document(s) ionized calcium 4.2 mg/dL 4.5-5.3 Below low normal Ionized Calciu m JOHANA ([facility]) ID Date Data Source [id number] 04/23/2021 03:26:00 PM EDT JOHANA ([facility]) Name Value Range Interpretation Code Description Data Larissa rce(s) Supporting Document(s) magnesium level 2.2 mg/dL 1.8-2.4 Magnesium Level [facility] ([facility]) ID Date Data Source [id number] 04/23/2021 03:26:00 PM EDT JOHANA ([facility]) Name Value Range Interpretation Code Description Data Larissa rce(s) Supporting Document(s) glucose, fasting 233 mg/dL 70-100 Above high normal Glucose, Fas ting JOHANA ([facility]) blood urea nitrogen 32 mg/dL 7-18 Above high normal Blood Ure a Nitrogen JOHANA ([facility]) creatinine for GFR 1.34 mg/dL 0.55-1.30 Above high normal Creatinine for GFR JOHANA ([facility]) glomerular filtration rate >58 Below low normal Nay merular Filtration Rate JOHANA ([facility]) sodium level 137 mEq/L 136-145 Sodium Level JOHANA ([facility]) potassium serum 3.5 mEq/L 3.5-5.1 Potassium Serum ATHE NA ([facility]) chloride level 97 mEq/L 98-107 Below low normal Chloride Level JOHANA ([facility]) carbon dioxide level 29 mEq/L 21-32 Carbon Dioxide Level JOHANA ([facility]) anion gap 11 mEq/L 8-16 Anion Gap JOHANA ([facility]) calcium level 8.6 mg/dL 8.5-10.1 Calcium Level JOHANA ( [facility]) ID Date Data Source [id number] 04/23/2021 03:26:00 PM EDT [facility]) Name Value Range Interpretation Code Description Data Larissa rce(s) Supporting Document(s) ionized calcium 4.2 mg/dL 4.5-5.3 Below low normal Ionized Calciu m FLOR[place]OME ([facility]) ID Date Data Source [id number] 04/23/2021 05:17:00 AM EDT [facility]) Name Value Range Interpretation Code Description Data Larissa rce(s) Supporting Document(s) magnesium level 2.1 mg/dL 1.8-2.4 Magnesium Level [facility] ([facility]) ID Date Data Source [id number] 04/23/2021 05:17:00 AM EDT [facility]) Name Value Range Interpretation Code Description Data Larissa rce(s) Supporting Document(s) glucose, fasting 137 mg/dL 70-100 Above high normal Glucose, Fas ting FLORAHOME ([facility]) creatinine for GFR 1.14 mg/dL 0.55-1.30 Creatinine for GF R FLORAHOME ([facility]) blood urea nitrogen 28 mg/dL 7-18 Above high normal Blood Ure a Nitrogen JOHANA ([facility]) glomerular filtration rate >58 Below low normal Nay merular Filtration Rate JOHANA ([facility]) sodium level 139 mEq/L 136-145 Sodium Level JOHANA ([facility]) potassium serum 3.3 mEq/L 3.5-5.1 Below low normal Potassium Seru m JOHANA ([facility]) chloride level 102 mEq/L 98-107 Chloride Level JOHANA ([facility]) anion gap 7 mEq/L 8-16 Below low normal Anion Gap JOHANA ( [facility]) carbon dioxide level 30 mEq/L 21-32 Carbon Dioxide Level JOHANA ([facility]) calcium level 8.5 mg/dL 8.5-10.1 Calcium Level JOHANA ( [facility]) ID Date Data Source [id number] 04/23/2021 05:17:00 AM EDT [facility]) Name Value Range Interpretation Code Description Data Larissa rce(s) Supporting Document(s) magnesium level 2.1 mg/dL 1.8-2.4 Magnesium Level [facility] ([facility]) ID Date Data Source [id number] 04/23/2021 05:17:00 AM EDT [facility]) Name Value Range Interpretation Code Description Data Larissa rce(s) Supporting Document(s) glucose, fasting 137 mg/dL 70-100 Above high normal Glucose, Fas ting JOHANA ([facility]) creatinine for GFR 1.14 mg/dL 0.55-1.30 Creatinine for GF R FLOR[place]OME ([facility]) blood urea nitrogen 28 mg/dL 7-18 Above high normal Blood Ure a Nitrogen JOHANA ([facility]) glomerular filtration rate >58 Below low normal Nay merular Filtration Rate JOHANA ([facility]) sodium level 139 mEq/L 136-145 Sodium Level JOHANA ([facility]) potassium serum 3.3 mEq/L 3.5-5.1 Below low normal Potassium Seru m JOHANA ([facility]) carbon dioxide level 30 mEq/L 21-32 Carbon Dioxide Level JOHANA ([facility]) chloride level 102 mEq/L 98-107 Chloride Level JOHANA ([facility]) anion gap 7 mEq/L 8-16 Below low normal Anion Gap JOHANA ( [facility]) calcium level 8.5 mg/dL 8.5-10.1 Calcium Level JOHANA ( [facility]) ID Date Data Source [id number] 04/23/2021 05:17:00 AM EDT JOHANA ([facility]) Name Value Range Interpretation Code Description Data Larissa rce(s) Supporting Document(s) magnesium level 2.1 mg/dL 1.8-2.4 Magnesium Level ATHE NA ([facility]) ID Date Data Source [id number] 04/23/2021 05:17:00 AM EDT JOHANA ([facility]) Name Value Range Interpretation Code Description Data Larissa rce(s) Supporting Document(s) glucose, fasting 137 mg/dL 70-100 Above high normal Glucose, Fas ting JOHANA ([facility]) blood urea nitrogen 28 mg/dL 7-18 Above high normal Blood Ure a Nitrogen JOHANA ([facility]) creatinine for GFR 1.14 mg/dL 0.55-1.30 Creatinine for GF R JOHANA ([facility]) glomerular filtration rate >58 Below low normal Nay merular Filtration Rate J[facility]ANA ([facility] System) sodium level 139 mEq/L 136-145 Sodium Level JOHANA ([facility]) potassium serum 3.3 mEq/L 3.5-5.1 Below low normal Potassium Seru m JOHANA ([facility]) chloride level 102 mEq/L 98-107 Chloride Level JOHANA ([facility]) carbon dioxide level 30 mEq/L 21-32 Carbon Dioxide Level JOHANA ([facility]) anion gap 7 mEq/L 8-16 Below low normal Anion Gap JOHANA ( [facility]) calcium level 8.5 mg/dL 8.5-10.1 Calcium Level JOHANA ( [facility]) ID Date Data Source [id number] 04/23/2021 05:17:00 AM EDT JOHANA ([facility]) Name Value Range Interpretation Code Description Data Larissa rce(s) Supporting Document(s) magnesium level 2.1 mg/dL 1.8-2.4 Magnesium Level ATHE NA ([facility]) ID Date Data Source [id number] 04/23/2021 05:17:00 AM EDT JOHANA ([facility]) Name Value Range Interpretation Code Description Data Larissa rce(s) Supporting Document(s) glucose, fasting 137 mg/dL 70-100 Above high normal Glucose, Fas ting JOHANA ([facility]) blood urea nitrogen 28 mg/dL 7-18 Above high normal Blood Ure a Nitrogen FLORAHOME ([facility]) creatinine for GFR 1.14 mg/dL 0.55-1.30 Creatinine for GF R JOHANA ([facility]) glomerular filtration rate >58 Below low normal Nay merular Filtration Rate JOHANA ([facility]) sodium level 139 mEq/L 136-145 Sodium Level JOHANA (No [facility]) potassium serum 3.3 mEq/L 3.5-5.1 Below low normal Potassium Seru m FLORAHOME ([facility]) chloride level 102 mEq/L 98-107 Chloride Level FLORAHOME ([facility]) carbon dioxide level 30 mEq/L 21-32 Carbon Dioxide Level FLORAHOME ([facility]) anion gap 7 mEq/L 8-16 Below low normal Anion Gap JOHANA ( [facility]) calcium level 8.5 mg/dL 8.5-10.1 Calcium Level JOHANA ( [facility]) ID Date Data Source [id number] 04/23/2021 05:17:00 AM EDT JOHANA ([facility]) Name Value Range Interpretation Code Description Data Larissa rce(s) Supporting Document(s) magnesium level 2.1 mg/dL 1.8-2.4 Magnesium Level ATHE NA ([facility]) ID Date Data Source [id number] 04/23/2021 05:17:00 AM EDT JOHANA ([facility]) Name Value Range Interpretation Code Description Data Larissa rce(s) Supporting Document(s) glucose, fasting 137 mg/dL 70-100 Above high normal Glucose, Fas ting FLORAHOME ([facility]) blood urea nitrogen 28 mg/dL 7-18 Above high normal Blood Ure a Nitrogen JOHANA ([facility]) creatinine for GFR 1.14 mg/dL 0.55-1.30 Creatinine for GF R JOHANA ([facility]) glomerular filtration rate >58 Below low normal Nay merular Filtration Rate JOHANA ([facility]) sodium level 139 mEq/L 136-145 Sodium Level JOHANA ([facility]) potassium serum 3.3 mEq/L 3.5-5.1 Below low normal Potassium Seru m FLORAHOME ([facility]) chloride level 102 mEq/L 98-107 Chloride Level FLORAHOME ([facility]) carbon dioxide level 30 mEq/L 21-32 Carbon Dioxide Level FLORAHOME ([facility]) anion gap 7 mEq/L 8-16 Below low normal Anion Gap FLORAHOME ( [facility]) calcium level 8.5 mg/dL 8.5-10.1 Calcium Level FLORAHOME ( [facility]) ID Date Data Source [id number] 04/22/2021 06:50:00 PM EDT FLORAHOME ([facility]) Name Value Range Interpretation Code Description Data Larissa rce(s) Supporting Document(s) magnesium level 2.0 mg/dL 1.8-2.4 Magnesium Level ATHE NA ([facility]) ID Date Data Source [id number] 04/22/2021 06:50:00 PM EDT FLORAHOME ([facility]) Name Value Range Interpretation Code Description Data Larissa rce(s) Supporting Document(s) glucose, fasting 172 mg/dL 70-100 Above high normal Glucose, Fas ting FLORAHOME ([facility]) blood urea nitrogen 21 mg/dL 7-18 Above high normal Blood Ure a Nitrogen FLORAHOME ([facility]) creatinine for GFR 1.22 mg/dL 0.55-1.30 Creatinine for GF R JOHANA ([facility]) glomerular filtration rate >58 Below low normal Nay merular Filtration Rate JOHANA ([facility]) sodium level 140 mEq/L 136-145 Sodium Level JOHANA ([facility]) potassium serum 3.0 mEq/L 3.5-5.1 Below low normal Potassium Seru m JOHANA ([facility]) carbon dioxide level 29 mEq/L 21-32 Carbon Dioxide Level JOHANA ([facility]) chloride level 101 mEq/L 98-107 Chloride Level JOHANA ([facility]) calcium level 8.9 mg/dL 8.5-10.1 Calcium Level FLORAHOME ( [facility]) anion gap 10 mEq/L 8-16 Anion Gap JOHANA ([facility]) ID Date Data Source [id number] 04/22/2021 06:50:00 PM EDT FLORAHOME ([facility]) Name Value Range Interpretation Code Description Data Larissa rce(s) Supporting Document(s) magnesium level 2.0 mg/dL 1.8-2.4 Magnesium Level [facility] ([facility]) ID Date Data Source [id number] 04/22/2021 06:50:00 PM EDT [facility]) Name Value Range Interpretation Code Description Data Larissa rce(s) Supporting Document(s) glucose, fasting 172 mg/dL 70-100 Above high normal Glucose, Fas ting JOHANA ([facility]) blood urea nitrogen 21 mg/dL 7-18 Above high normal Blood Ure a Nitrogen JOHANA ([facility]) glomerular filtration rate >58 Below low normal Nay merular Filtration Rate JOHANA ([facility]) creatinine for GFR 1.22 mg/dL 0.55-1.30 Creatinine for GF R JOHANA ([facility]) sodium level 140 mEq/L 136-145 Sodium Level JOHANA ([facility]) potassium serum 3.0 mEq/L 3.5-5.1 Below low normal Potassium Seru m JOHANA ([facility]) chloride level 101 mEq/L 98-107 Chloride Level JOHANA ([facility]) carbon dioxide level 29 mEq/L 21-32 Carbon Dioxide Level JOHANA ([facility]) calcium level 8.9 mg/dL 8.5-10.1 Calcium Level JOHANA ( [facility]) anion gap 10 mEq/L 8-16 Anion Gap JOHANA ([facility]) ID Date Data Source [id number] 04/22/2021 06:50:00 PM EDT JOHANA ([facility]) Name Value Range Interpretation Code Description Data Larissa rce(s) Supporting Document(s) magnesium level 2.0 mg/dL 1.8-2.4 [facility] ID Date Data Source [id number] 04/22/2021 06:50:00 PM EDT JOHANA ([facility]) Name Value Range Interpretation Code Description Data Larissa rce(s) Supporting Document(s) glucose, fasting 172 mg/dL 70-100 Above high normal Glucose, Fas ting JOHANA ([facility]) blood urea nitrogen 21 mg/dL 7-18 Above high normal Blood Ure a Nitrogen JOHANA ([facility]) creatinine for GFR 1.22 mg/dL 0.55-1.30 Creatinine for GF R JOHANA ([facility]) glomerular filtration rate >58 Below low normal Nay merular Filtration Rate JOHANA ([facility]) sodium level 140 mEq/L 136-145 Sodium Level JOHANA ([facility]) potassium serum 3.0 mEq/L 3.5-5.1 Below low normal Potassium Seru m JOHANA ([facility]) carbon dioxide level 29 mEq/L 21-32 Carbon Dioxide Level JOHANA ([facility]) chloride level 101 mEq/L 98-107 Chloride Level JOHANA ([facility]) calcium level 8.9 mg/dL 8.5-10.1 Calcium Level JOHANA ( [facility]) anion gap 10 mEq/L 8-16 Anion Gap JOHANA ([facility]) ID Date Data Source [id number] 04/22/2021 06:50:00 PM EDT JOHANA ([facility]) Name Value Range Interpretation Code Description Data Larissa rce(s) Supporting Document(s) magnesium level 2.0 mg/dL 1.8-2.4 Magnesium Level ATHE NA ([facility]) ID Date Data Source [id number] 04/22/2021 06:50:00 PM EDT JOHANA ([facility]) Name Value Range Interpretation Code Description Data Larissa rce(s) Supporting Document(s) blood urea nitrogen 21 mg/dL 7-18 Above high normal Blood Ure a Nitrogen JOHANA ([facility]) glucose, fasting 172 mg/dL 70-100 Above high normal Glucose, Fas ting FLORAHOME ([facility]) creatinine for GFR 1.22 mg/dL 0.55-1.30 Creatinine for GF R JHOANA ([facility]) glomerular filtration rate >58 Below low normal Nay merular Filtration Rate JOHANA ([facility]) sodium level 140 mEq/L 136-145 Sodium Level JOHANA ([facility]) potassium serum 3.0 mEq/L 3.5-5.1 Below low normal Potassium Seru m FLORAHOME ([facility]) chloride level 101 mEq/L 98-107 Chloride Level FLORAHOME ([facility]) carbon dioxide level 29 mEq/L 21-32 Carbon Dioxide Level JOHANA ([facility]) anion gap 10 mEq/L 8-16 Anion Gap JOHANA ([facility]) calcium level 8.9 mg/dL 8.5-10.1 Calcium Level JOHANA ( [facility]) ID Date Data Source [id number] 04/22/2021 06:50:00 PM EDT JOHANA ([facility]) Name Value Range Interpretation Code Description Data Larissa rce(s) Supporting Document(s) magnesium level 2.0 mg/dL 1.8-2.4 Magnesium Level ATHE NA ([facility]) ID Date Data Source [id number] 04/22/2021 06:50:00 PM EDT FLORAHOME ([facility]) Name Value Range Interpretation Code Description Data Larissa rce(s) Supporting Document(s) glucose, fasting 172 mg/dL 70-100 Above high normal Glucose, Fas ting FLORAHOME ([facility]) creatinine for GFR 1.22 mg/dL 0.55-1.30 Creatinine for GF R JOHANA ([facility]) blood urea nitrogen 21 mg/dL 7-18 Above high normal Blood Ure a Nitrogen JOHANA ([facility]) glomerular filtration rate >58 Below low normal Nay merular Filtration Rate FLORAHOME ([facility]) sodium level 140 mEq/L 136-145 Sodium Level JOHANA ([facility]) potassium serum 3.0 mEq/L 3.5-5.1 Below low normal Potassium Seru m FLORAHOME ([facility]) chloride level 101 mEq/L 98-107 Chloride Level FLORAHOME ([facility]) carbon dioxide level 29 mEq/L 21-32 Carbon Dioxide Level FLORAHOME ([facility]) anion gap 10 mEq/L 8-16 Anion Gap JOHANA ([facility]) calcium level 8.9 mg/dL 8.5-10.1 Calcium Level FLORAHOME ( [facility]) ID Date Data Source [id number] 04/22/2021 10:13:00 AM EDT FLORAHOME ([facility]) Name Value Range Interpretation Code Description Data Larissa rce(s) Supporting Document(s) magnesium level 2.0 mg/dL 1.8-2.4 Magnesium Level ATHE NA ([facility]) ID Date Data Source [id number] 04/22/2021 10:13:00 AM EDT FLORAHOME ([facility]) Name Value Range Interpretation Code Description Data Larissa rce(s) Supporting Document(s) glucose, fasting 263 mg/dL 70-100 Above high normal Glucose, Fas ting FLORAHOME ([facility]) creatinine for GFR 1.13 mg/dL 0.55-1.30 Creatinine for GF R JOHANA ([facility]) blood urea nitrogen 20 mg/dL 7-18 Above high normal Blood Ure a Nitrogen JOHANA ([facility]) glomerular filtration rate >58 Below low normal Nay merular Filtration Rate JOHANA ([facility]) sodium level 138 mEq/L 136-145 Sodium Level JOHANA ([facility]) potassium serum 3.2 mEq/L 3.5-5.1 Below low normal Potassium Seru m FLORAHOME ([facility]) chloride level 102 mEq/L 98-107 Chloride Level FLORAHOME ([facility]) carbon dioxide level 26 mEq/L 21-32 Carbon Dioxide Level FLORAHOME ([facility]) anion gap 10 mEq/L 8-16 Anion Gap FLORAHOME ([facility]) calcium level 9.0 mg/dL 8.5-10.1 Calcium Level FLORAHOME ( [facility]) ID Date Data Source [id number] 04/22/2021 10:13:00 AM EDT [facility]) Name Value Range Interpretation Code Description Data Lraissa rce(s) Supporting Document(s) ionized calcium 4.4 mg/dL 4.5-5.3 Below low normal Ionized Calciu m FLORAHOME ([facility]) ID Date Data Source [id number] 04/22/2021 10:13:00 AM EDT [facility]) Name Value Range Interpretation Code Description Data Larissa rce(s) Supporting Document(s) magnesium level 2.0 mg/dL 1.8-2.4 [facility] ID Date Data Source [id number] 04/22/2021 10:13:00 AM EDT [facility]) Name Value Range Interpretation Code Description Data Larissa rce(s) Supporting Document(s) glucose, fasting 263 mg/dL 70-100 Above high normal Glucose, Fas ting FLORAHOME ([facility]) blood urea nitrogen 20 mg/dL 7-18 Above high normal Blood Ure a Nitrogen JOHANA ([facility]) glomerular filtration rate >58 Below low normal Nay merular Filtration Rate JOHANA ([facility]) creatinine for GFR 1.13 mg/dL 0.55-1.30 Creatinine for GF R JOHANA ([facility]) sodium level 138 mEq/L 136-145 Sodium Level JOHANA ([facility]) potassium serum 3.2 mEq/L 3.5-5.1 Below low normal Potassium Seru m FLORAHOME ([facility]) chloride level 102 mEq/L 98-107 Chloride Level FLORAHOME ([facility]) carbon dioxide level 26 mEq/L 21-32 Carbon Dioxide Level FLORAHOME ([facility]) calcium level 9.0 mg/dL 8.5-10.1 Calcium Level FLORAHOME ( [facility]) anion gap 10 mEq/L 8-16 Anion Gap FLORAHOME ([facility]) ID Date Data Source [id number] 04/22/2021 10:13:00 AM EDT FLORAHOME ([facility]) Name Value Range Interpretation Code Description Data Larissa rce(s) Supporting Document(s) ionized calcium 4.4 mg/dL 4.5-5.3 Below low normal Ionized Calciu m FLORAHOME ([facility]) ID Date Data Source [id number] 04/22/2021 10:13:00 AM EDT [facility]) Name Value Range Interpretation Code Description Data Larissa rce(s) Supporting Document(s) magnesium level 2.0 mg/dL 1.8-2.4 Magnesium Level ATHE NA ([facility]) ID Date Data Source [id number] 04/22/2021 10:13:00 AM EDT [facility]) Name Value Range Interpretation Code Description Data Larissa rce(s) Supporting Document(s) glucose, fasting 263 mg/dL 70-100 Above high normal Glucose, Fas ting JOHANA ([facility]) blood urea nitrogen 20 mg/dL 7-18 Above high normal Blood Ure a Nitrogen FLORAHOME ([facility]) creatinine for GFR 1.13 mg/dL 0.55-1.30 Creatinine for GF R JOHANA ([facility]) glomerular filtration rate >58 Below low normal Nay merular Filtration Rate JOHANA ([facility]) potassium serum 3.2 mEq/L 3.5-5.1 Below low normal Potassium Seru m FLORAHOME ([facility]) sodium level 138 mEq/L 136-145 Sodium Level JOHANA ([facility]) chloride level 102 mEq/L 98-107 Chloride Level FLORAHOME ([facility]) anion gap 10 mEq/L 8-16 Anion Gap JOHANA ([facility]) carbon dioxide level 26 mEq/L 21-32 Carbon Dioxide Level FLORAHOME ([facility]) calcium level 9.0 mg/dL 8.5-10.1 Calcium Level FLORAHOME ( [facility]) ID Date Data Source [id number] 04/22/2021 10:13:00 AM EDT [facility]) Name Value Range Interpretation Code Description Data Larissa rce(s) Supporting Document(s) ionized calcium 4.4 mg/dL 4.5-5.3 Below low normal Ionized Calciu m FLORAHOME ([facility]) ID Date Data Source [id number] 04/22/2021 10:13:00 AM EDT [facility]) Name Value Range Interpretation Code Description Data Larissa rce(s) Supporting Document(s) magnesium level 2.0 mg/dL 1.8-2.4 [facility] ID Date Data Source [id number] 04/22/2021 10:13:00 AM EDT [facility]) Name Value Range Interpretation Code Description Data Larissa rce(s) Supporting Document(s) glucose, fasting 263 mg/dL 70-100 Above high normal Glucose, Fas ting JOHANA ([facility]) blood urea nitrogen 20 mg/dL 7-18 Above high normal Blood Ure a Nitrogen JOHANA ([facility]) creatinine for GFR 1.13 mg/dL 0.55-1.30 Creatinine for GF R JOHANA ([facility]) sodium level 138 mEq/L 136-145 Sodium Level JOHANA ([facility]) glomerular filtration rate >58 Below low normal Nay merular Filtration Rate FLORAHOME ([facility]) potassium serum 3.2 mEq/L 3.5-5.1 Below low normal Potassium Seru m FLORAHOME ([facility]) chloride level 102 mEq/L 98-107 Chloride Level FLORAHOME ([facility]) carbon dioxide level 26 mEq/L 21-32 Carbon Dioxide Level FLORAHOME ([facility]) calcium level 9.0 mg/dL 8.5-10.1 Calcium Level FLORAHOME ( [facility]) anion gap 10 mEq/L 8-16 Anion Gap FLOR[place]OME ([facility]) ID Date Data Source [id number] 04/22/2021 10:13:00 AM EDT [facility]) Name Value Range Interpretation Code Description Data Larissa rce(s) Supporting Document(s) ionized calcium 4.4 mg/dL 4.5-5.3 Below low normal Ionized Calciu m [facility]) ID Date Data Source [id number] 04/22/2021 10:13:00 AM EDT [facility]) Name Value Range Interpretation Code Description Data Larissa rce(s) Supporting Document(s) magnesium level 2.0 mg/dL 1.8-2.4 [facility] ID Date Data Source [id number] 04/22/2021 10:13:00 AM EDT [facility]) Name Value Range Interpretation Code Description Data Larissa rce(s) Supporting Document(s) glucose, fasting 263 mg/dL 70-100 Above high normal Glucose, Fas ting FLORAHOME ([facility]) blood urea nitrogen 20 mg/dL 7-18 Above high normal Blood Ure a Nitrogen FLORAHOME ([facility]) creatinine for GFR 1.13 mg/dL 0.55-1.30 Creatinine for GF R JOHANA ([facility]) glomerular filtration rate >58 Below low normal Nay merular Filtration Rate JOHANA ([facility]) sodium level 138 mEq/L 136-145 Sodium Level JOHANA (No [facility]) chloride level 102 mEq/L 98-107 Chloride Level FLORAHOME ([facility]) potassium serum 3.2 mEq/L 3.5-5.1 Below low normal Potassium Seru m FLORAHOME ([facility]) carbon dioxide level 26 mEq/L 21-32 Carbon Dioxide Level FLORAHOME ([facility]) calcium level 9.0 mg/dL 8.5-10.1 Calcium Level FLORAHOME ( [facility]) anion gap 10 mEq/L 8-16 Anion Gap FLOR[place]OME ([facility]) ID Date Data Source [id number] 04/22/2021 10:13:00 AM EDT [facility]) Name Value Range Interpretation Code Description Data Larissa rce(s) Supporting Document(s) ionized calcium 4.4 mg/dL 4.5-5.3 Below low normal Ionized Calciu m [facility]) ID Date Data Source [id number] 04/22/2021 05:28:00 AM EDT [facility]) Name Value Range Interpretation Code Description Data Larissa rce(s) Supporting Document(s) nt-pro BNP 5559 pg/mL <125 Above high normal Nt-pro BNP [facility]) ID Date Data Source [id number] 04/22/2021 05:28:00 AM EDT [facility]) Name Value Range Interpretation Code Description Data Larissa rce(s) Supporting Document(s) magnesium level 2.0 mg/dL 1.8-2.4 Magnesium Level ATHE NA ([facility]) ID Date Data Source [id number] 04/22/2021 05:28:00 AM EDT FLORAHOME ([facility]) Name Value Range Interpretation Code Description Data Larissa rce(s) Supporting Document(s) glucose, fasting 155 mg/dL 70-100 Above high normal Glucose, Fas ting JOHANA ([facility]) creatinine for GFR 0.99 mg/dL 0.55-1.30 Creatinine for GF R FLORAHOME ([facility]) blood urea nitrogen 15 mg/dL 7-18 Blood Urea Nitro gen FLORAHOME ([facility]) glomerular filtration rate > 60.0 >58 Glomerula r Filtration Rate FLORAHOME ([facility]) sodium level 140 mEq/L 136-145 Sodium Level JOHANA ([facility]) potassium serum 3.4 mEq/L 3.5-5.1 Below low normal Potassium Seru m FLORAHOME ([facility]) chloride level 104 mEq/L 98-107 Chloride Level FLOR[place]OME ([facility]) carbon dioxide level 26 mEq/L 21-32 Carbon Dioxide Level FLOR[place]OME ([facility]) calcium level 8.7 mg/dL 8.5-10.1 Calcium Level FLORAHOME ( [facility]) anion gap 10 mEq/L 8-16 Anion Gap [place]OME ([facility]) ID Date Data Source [id number] 04/22/2021 05:28:00 AM EDT FLOR[place]OME ([facility]) Name Value Range Interpretation Code Description Data Larissa rce(s) Supporting Document(s) ionized calcium 4.1 mg/dL 4.5-5.3 Below low normal Ionized Calciu m [facility]) ID Date Data Source [id number] 04/22/2021 05:28:00 AM EDT [facility]) Name Value Range Interpretation Code Description Data Larissa rce(s) Supporting Document(s) nt-pro BNP 5559 pg/mL <125 Above high normal Nt-pro BNP JOHANA ([facility]) ID Date Data Source [id number] 04/22/2021 05:28:00 AM EDT JOHANA ([facility]) Name Value Range Interpretation Code Description Data Larissa rce(s) Supporting Document(s) magnesium level 2.0 mg/dL 1.8-2.4 Magnesium Level ATHE NA ([facility]) ID Date Data Source [id number] 04/22/2021 05:28:00 AM EDT JOHANA ([facility]) Name Value Range Interpretation Code Description Data Larissa rce(s) Supporting Document(s) glucose, fasting 155 mg/dL 70-100 Above high normal Glucose, Fas ting JOHANA ([facility]) creatinine for GFR 0.99 mg/dL 0.55-1.30 Creatinine for GF R FLORAHOME ([facility]) blood urea nitrogen 15 mg/dL 7-18 Blood Urea Nitro gen JOHANA ([facility]) glomerular filtration rate > 60.0 >58 Glomerula r Filtration Rate JOHANA ([facility]) sodium level 140 mEq/L 136-145 Sodium Level JOHANA ([facility]) potassium serum 3.4 mEq/L 3.5-5.1 Below low normal Potassium Seru m JOHANA ([facility]) chloride level 104 mEq/L 98-107 Chloride Level JOHANA ([facility]) carbon dioxide level 26 mEq/L 21-32 Carbon Dioxide Level JOHANA ([facility]) anion gap 10 mEq/L 8-16 Anion Gap JOHANA ([facility]) calcium level 8.7 mg/dL 8.5-10.1 Calcium Level JOHANA ( [facility] System) ID Date Data Source [id number] 04/22/2021 05:28:00 AM [facility] Name Value Range Interpretation Code Description Data Larissa rce(s) Supporting Document(s) ionized calcium 4.1 mg/dL 4.5-5.3 Below low normal Ionized Calciu m FLOR[place]OME ([facility]) ID Date Data Source [id number] 04/22/2021 05:28:00 AM EDT [place] ([facility]) Name Value Range Interpretation Code Description Data Larissa rce(s) Supporting Document(s) nt-pro BNP 5559 pg/mL <125 Above high normal Nt-pro BNP [place] ([facility]) ID Date Data Source [id number] 04/22/2021 05:28:00 AM EDT [place] ([facility]) Name Value Range Interpretation Code Description Data Larissa rce(s) Supporting Document(s) magnesium level 2.0 mg/dL 1.8-2.4 [facility] Date Data Source [id number] 04/22/2021 05:28:00 AM EDT [place] ([facility]) Name Value Range Interpretation Code Description Data Larissa rce(s) Supporting Document(s) glucose, fasting 155 mg/dL 70-100 Above high normal Glucose, Fas ting JOHANA ([facility]) blood urea nitrogen 15 mg/dL 7-18 Blood Urea Nitro gen FLORAHOME ([facility]) glomerular filtration rate > 60.0 >58 Glomerula r Filtration Rate [place] ([facility]) creatinine for GFR 0.99 mg/dL 0.55-1.30 Creatinine for GF R FLORAHOME ([facility]) sodium level 140 mEq/L 136-145 Sodium Level JOHANA ([facility]) potassium serum 3.4 mEq/L 3.5-5.1 Below low normal Potassium Seru m FLORAHOME ([facility]) chloride level 104 mEq/L 98-107 Chloride Level [place] ([facility]) carbon dioxide level 26 mEq/L 21-32 Carbon Dioxide Level [place]OR[place]OME ([facility]) anion gap 10 mEq/L 8-16 Anion Gap [place] ([facility]) calcium level 8.7 mg/dL 8.5-10.1 Calcium Level JOHANA ( [facility]) ID Date Data Source [id number] 04/22/2021 05:28:00 AM EDT [place] ([facility]) Name Value Range Interpretation Code Description Data Larissa rce(s) Supporting Document(s) ionized calcium 4.1 mg/dL 4.5-5.3 Below low normal Ionized Calciu m JOHANA ([facility]) ID Date Data Source [id number] 04/22/2021 05:28:00 AM EDT [facility]) Name Value Range Interpretation Code Description Data Larissa rce(s) Supporting Document(s) nt-pro BNP 5559 pg/mL <125 Above high normal Nt-pro BNP [place] ([facility]) ID Date Data Source [id number] 04/22/2021 05:28:00 AM EDT [place] ([facility]) Name Value Range Interpretation Code Description Data Larissa rce(s) Supporting Document(s) magnesium level 2.0 mg/dL 1.8-2.4 Magnesium Level ATHE ([facility]) ID Date Data Source [id number] 04/22/2021 05:28:00 AM EDT [facility]) Name Value Range Interpretation Code Description Data Larissa rce(s) Supporting Document(s) glucose, fasting 155 mg/dL 70-100 Above high normal Glucose, Fas ting JOHANA ([facility]) blood urea nitrogen 15 mg/dL 7-18 Blood Urea Nitro gen JOHANA ([facility]) creatinine for GFR 0.99 mg/dL 0.55-1.30 Creatinine for GF R FLORAHOME ([facility]) glomerular filtration rate > 60.0 >58 Glomerula r Filtration Rate [place]OR[place] ([facility]) sodium level 140 mEq/L 136-145 Sodium Level JOHANA ([facility]) potassium serum 3.4 mEq/L 3.5-5.1 Below low normal Potassium Seru m JOHANA ([facility]) chloride level 104 mEq/L 98-107 Chloride Level JOHANA ([facility]) carbon dioxide level 26 mEq/L 21-32 Carbon Dioxide Level JOHANA ([facility]) anion gap 10 mEq/L 8-16 Anion Gap JOHANA ([facility]) calcium level 8.7 mg/dL 8.5-10.1 Calcium Level JOHANA ( [facility]) ID Date Data Source [id number] 04/22/2021 05:28:00 AM EDT [facility]) Name Value Range Interpretation Code Description Data Larissa rce(s) Supporting Document(s) ionized calcium 4.1 mg/dL 4.5-5.3 Below low normal Ionized Calciu m JOHANA ([facility]) ID Date Data Source [id number] 04/22/2021 05:28:00 AM EDT [facility]) Name Value Range Interpretation Code Description Data Larissa rce(s) Supporting Document(s) nt-pro BNP 5559 pg/mL <125 Above high normal Nt-pro BNP [facility]) ID Date Data Source [id number] 04/22/2021 05:28:00 [facility] Name Value Range Interpretation Code Description Data Larissa rce(s) Supporting Document(s) magnesium level 2.0 mg/dL 1.8-2.4 Magnesium Level ATHE [facility]) ID Date Data Source [id number] 04/22/2021 05:28:00 AM EDT [facility]) Name Value Range Interpretation Code Description Data Larissa rce(s) Supporting Document(s) glucose, fasting 155 mg/dL 70-100 Above high normal Glucose, Fas ting FLORAHOME ([facility]) blood urea nitrogen 15 mg/dL 7-18 Blood Urea Nitro gen FLORAHOME ([facility]) creatinine for GFR 0.99 mg/dL 0.55-1.30 Creatinine for GF R FLORAHOME ([facility]) glomerular filtration rate > 60.0 >58 Glomerula r Filtration Rate FLOR[place]OME ([facility]) potassium serum 3.4 mEq/L 3.5-5.1 Below low normal Potassium Seru m FLORAHOME ([facility]) sodium level 140 mEq/L 136-145 Sodium Level JOHANA ([facility]) chloride level 104 mEq/L 98-107 Chloride Level FLOR[place]OME ([facility]) carbon dioxide level 26 mEq/L 21-32 Carbon Dioxide Level FLOR[place]OME ([facility]) calcium level 8.7 mg/dL 8.5-10.1 Calcium Level [facility]) anion gap 10 mEq/L 8-16 Anion Gap [place] ([facility]) ID Date Data Source [id number] 04/22/2021 05:28:00 AM EDT [facility]) Name Value Range Interpretation Code Description Data Larissa rce(s) Supporting Document(s) ionized calcium 4.1 mg/dL 4.5-5.3 Below low normal Ionized Calciu m [place]OR[place]OME ([facility]) ID Date Data Source [id number] 04/21/2021 06:10:00 PM EDT [facility]) Name Value Range Interpretation Code Description Data Larissa rce(s) Supporting Document(s) blood urea nitrogen 13 mg/dL 7-18 Blood Urea Nitro gen FLORAHOME ([facility]) glucose, fasting 124 mg/dL 70-100 Above high normal Glucose, Fas ting FLORAHOME ([facility]) glomerular filtration rate > 60.0 >58 Glomerula r Filtration Rate [place]OR[place]OME ([facility]) creatinine for GFR 1.07 mg/dL 0.55-1.30 Creatinine for GF R FLORAHOME ([facility]) potassium serum 3.7 mEq/L 3.5-5.1 Potassium Serum ATHE NA ([facility]) sodium level 141 mEq/L 136-145 Sodium Level JOHANA ([facility]) carbon dioxide level 27 mEq/L 21-32 Carbon Dioxide Level JOHANA ([facility]) chloride level 105 mEq/L 98-107 Chloride Level JOHANA ([facility]) anion gap 9 mEq/L 8-16 Anion Gap JOHANA ([facility]) calcium level 8.8 mg/dL 8.5-10.1 Calcium Level JOHANA ( [facility]) ID Date Data Source [id number] 04/21/2021 06:10:00 PM EDT FLOR[place]OME ([facility]) Name Value Range Interpretation Code Description Data Larissa rce(s) Supporting Document(s) magnesium level 1.9 mg/dL 1.8-2.4 Magnesium Level [facility] ([facility]) ID Date Data Source [id number] 04/21/2021 06:10:00 PM EDT FL[place]OME ([facility]) Name Value Range Interpretation Code Description Data Larissa rce(s) Supporting Document(s) ionized calcium 4.3 mg/dL 4.5-5.3 Below low normal Ionized Calciu m FLOR[place]OME ([facility]) ID Date Data Source [id number] 04/21/2021 06:10:00 PM EDT [facility]) Name Value Range Interpretation Code Description Data Larissa rce(s) Supporting Document(s) glucose, fasting 124 mg/dL 70-100 Above high normal Glucose, Fas ting FLORAHOME ([facility]) blood urea nitrogen 13 mg/dL 7-18 Blood Urea Nitro gen JOHANA ([facility]) glomerular filtration rate > 60.0 >58 Glomerula r Filtration Rate FLOR[place]OME ([facility]) creatinine for GFR 1.07 mg/dL 0.55-1.30 Creatinine for GF R JOHANA ([facility]) sodium level 141 mEq/L 136-145 Sodium Level JOHANA ([facility]) potassium serum 3.7 mEq/L 3.5-5.1 Potassium Serum ATHE NA ([facility]) carbon dioxide level 27 mEq/L 21-32 Carbon Dioxide Level JOHANA ([facility]) chloride level 105 mEq/L 98-107 Chloride Level JOHANA ([facility]) calcium level 8.8 mg/dL 8.5-10.1 Calcium Level FLORAHOME ( [facility]) anion gap 9 mEq/L 8-16 Anion Gap JOHANA ([facility]) ID Date Data Source [id number] 04/21/2021 06:10:00 PM EDT [facility]) Name Value Range Interpretation Code Description Data Larissa rce(s) Supporting Document(s) magnesium level 1.9 mg/dL 1.8-2.4 Magnesium Level [facility] ([facility]) ID Date Data Source [id number] 04/21/2021 06:10:00 PM EDT [facility]) Name Value Range Interpretation Code Description Data Larissa rce(s) Supporting Document(s) ionized calcium 4.3 mg/dL 4.5-5.3 Below low normal Ionized Calciu m FLOR[place]OME ([facility]) ID Date Data Source [id number] 04/21/2021 06:10:00 PM EDT [facility]) Name Value Range Interpretation Code Description Data Larissa rce(s) Supporting Document(s) glucose, fasting 124 mg/dL 70-100 Above high normal Glucose, Fas ting FLORAHOME ([facility]) blood urea nitrogen 13 mg/dL 7-18 Blood Urea Nitro gen FLORAHOME ([facility]) creatinine for GFR 1.07 mg/dL 0.55-1.30 Creatinine for GF R FLORAHOME ([facility]) glomerular filtration rate > 60.0 >58 Glomerula r Filtration Rate FLOR[place]OME ([facility]) sodium level 141 mEq/L 136-145 Sodium Level JOHANA ([facility]) potassium serum 3.7 mEq/L 3.5-5.1 Potassium Serum ATHE NA ([facility]) chloride level 105 mEq/L 98-107 Chloride Level JOHANA ([facility]) carbon dioxide level 27 mEq/L 21-32 Carbon Dioxide Level JOHANA ([facility]) anion gap 9 mEq/L 8-16 Anion Gap JOHANA ([facility]) calcium level 8.8 mg/dL 8.5-10.1 Calcium Level JOHANA ( [facility]) ID Date Data Source [id number] 04/21/2021 06:10:00 PM EDT [facility]) Name Value Range Interpretation Code Description Data Larissa rce(s) Supporting Document(s) magnesium level 1.9 mg/dL 1.8-2.4 Magnesium Level [facility] ([facility]) ID Date Data Source [id number] 04/21/2021 06:10:00 PM EDT [facility]) Name Value Range Interpretation Code Description Data Larissa rce(s) Supporting Document(s) ionized calcium 4.3 mg/dL 4.5-5.3 Below low normal Ionized Calciu m FLOR[place]OME ([facility]) ID Date Data Source [id number] 04/21/2021 06:10:00 PM EDT [facility]) Name Value Range Interpretation Code Description Data Larissa rce(s) Supporting Document(s) glucose, fasting 124 mg/dL 70-100 Above high normal Glucose, Fas ting JOHANA ([facility]) blood urea nitrogen 13 mg/dL 7-18 Blood Urea Nitro gen JOHANA ([facility]) glomerular filtration rate > 60.0 >58 Glomerula r Filtration Rate JOHANA ([facility]) creatinine for GFR 1.07 mg/dL 0.55-1.30 Creatinine for GF R FLORAHOME ([facility]) sodium level 141 mEq/L 136-145 Sodium Level JOHANA ([facility]) potassium serum 3.7 mEq/L 3.5-5.1 Potassium Serum ATHE NA ([facility]) chloride level 105 mEq/L 98-107 Chloride Level FLORAHOME ([facility]) carbon dioxide level 27 mEq/L 21-32 Carbon Dioxide Level JOHANA ([facility]) anion gap 9 mEq/L 8-16 Anion Gap JOHANA ([facility]) calcium level 8.8 mg/dL 8.5-10.1 Calcium Level FLORAHOME ( [facility]) ID Date Data Source [id number] 04/21/2021 06:10:00 PM EDT [facility]) Name Value Range Interpretation Code Description Data Larissa rce(s) Supporting Document(s) magnesium level 1.9 mg/dL 1.8-2.4 Magnesium Level [facility] ([facility]) ID Date Data Source [id number] 04/21/2021 06:10:00 PM EDT [facility]) Name Value Range Interpretation Code Description Data Larissa rce(s) Supporting Document(s) ionized calcium 4.3 mg/dL 4.5-5.3 Below low normal Ionized Calciu m FLOR[place]OME ([facility]) ID Date Data Source [id number] 04/21/2021 06:10:00 PM EDT [facility]) Name Value Range Interpretation Code Description Data Larissa rce(s) Supporting Document(s) glucose, fasting 124 mg/dL 70-100 Above high normal Glucose, Fas ting FLORAHOME ([facility]) blood urea nitrogen 13 mg/dL 7-18 Blood Urea Nitro gen FLOR[place]OME ([facility]) creatinine for GFR 1.07 mg/dL 0.55-1.30 Creatinine for GF R FLORAHOME ([facility]) potassium serum 3.7 mEq/L 3.5-5.1 Potassium Serum ATHE NA ([facility]) sodium level 141 mEq/L 136-145 Sodium Level JOHANA ([facility]) glomerular filtration rate > 60.0 >58 Glomerula r Filtration Rate JOHANA ([facility]) chloride level 105 mEq/L 98-107 Chloride Level JOHANA ([facility]) carbon dioxide level 27 mEq/L 21-32 Carbon Dioxide Level JOHANA ([facility]) anion gap 9 mEq/L 8-16 Anion Gap JOHANA ([facility]) calcium level 8.8 mg/dL 8.5-10.1 Calcium Level JOHANA ( [facility]) ID Date Data Source [id number] 04/21/2021 06:10:00 PM EDT [facility]) Name Value Range Interpretation Code Description Data Larissa rce(s) Supporting Document(s) magnesium level 1.9 mg/dL 1.8-2.4 Magnesium Level [facility] ([facility]) ID Date Data Source [id number] 04/21/2021 06:10:00 PM EDT [facility]) Name Value Range Interpretation Code Description Data Larissa rce(s) Supporting Document(s) ionized calcium 4.3 mg/dL 4.5-5.3 Below low normal Ionized Calciu m [facility]) ID Date Data Source [id number] 04/21/2021 03:57:00 PM EDT [facility]) Name Value Range Interpretation Code Description Data Larissa rce(s) Supporting Document(s) CK-mb value mass 1.6 NG/mL <3.6 CK-mb Value Mass AT [facility]) CPK creatine phosphokinase 223 U/L 26-192 Above high nor mal CPK Creatine Phosphokinase JOHANA ([facility]) troponin I < 0.02 < 0.10 Troponin I JOHANA ([facility]) mb/CK relative index < or =4 [facility] ID Date Data Source [id number] 04/21/2021 03:57:00 PM EDT [facility]) Name Value Range Interpretation Code Description Data Larissa rce(s) Supporting Document(s) CPK creatine phosphokinase 223 U/L 26-192 Above high nor mal CPK Creatine Phosphokinase JOHANA ([facility]) CK-mb value mass 1.6 NG/mL <3.6 CK-mb Value Mass AT [facility]) mb/CK relative index < or =4 mb/CK [facility] troponin I < 0.02 < 0.10 Troponin I [facility]) ID Date Data Source [id number] 04/21/2021 03:57:00 PM EDT [facility]) Name Value Range Interpretation Code Description Data Larissa rce(s) Supporting Document(s) CPK creatine phosphokinase 223 U/L 26-192 Above high nor mal CPK Creatine Phosphokinase JOHANA ([facility]) mb/CK relative index < or =4 mb/CK Relative Index JOHANA ([facility]) CK-mb value mass 1.6 NG/mL <3.6 CK-mb Value Mass AT [facility]) troponin I < 0.02 < 0.10 Troponin I JOHANA ([facility]) ID Date Data Source [id number] 04/21/2021 03:57:00 PM [facility] Name Value Range Interpretation Code Description Data Larissa rce(s) Supporting Document(s) CPK creatine phosphokinase 223 U/L 26-192 Above high nor mal CPK Creatine Phosphokinase FLORAHOME ([facility]) CK-mb value mass 1.6 NG/mL <3.6 CK-mb Value Mass AT [facility]) mb/CK relative index < or =4 mb/CK [facility] troponin I < 0.02 < 0.10 Troponin I JOHANA ([facility]) ID Date Data Source [id number] 04/21/2021 03:57:00 PM [facility]T [facility] Name Value Range Interpretation Code Description Data Larissa rce(s) Supporting Document(s) CPK creatine phosphokinase 223 U/L 26-192 Above high nor mal CPK Creatine Phosphokinase JOHANA ([facility]) CK-mb value mass 1.6 NG/mL <3.6 CK-mb Value Mass AT [facility] ([facility]) mb/CK relative index < or =4 mb/CK Relative Index JOHANA ([facility]) troponin I < 0.02 < 0.10 Troponin I JOHANA ([facility]) ID Date Data Source [id number] 04/21/2021 01:37:00 PM EDT [facility]) Name Value Range Interpretation Code Description Data Larissa rce(s) Supporting Document(s) T uptake 31 % 30-39 T Uptake JOHANA ([facility]) thyroxine (T4) 11.2 ug/dL 4.5-12.0 Thyroxine (T4) JOHANA ([facility]) free thyroxine index 3.5 % 1.3-4.8 Free Thyroxine Index JOHANA ([facility]) thyroid stimulating hormone 3.720 uIU/mL 0.358-3.740 Thyroid Stimulating Hormone JOHANA ([facility]) ID Date Data Source [id number] 04/21/2021 01:37:00 PM [facility] Name Value Range Interpretation Code Description Data Larissa rce(s) Supporting Document(s) CK-mb value mass 1.6 NG/mL <3.6 CK-mb Value Mass AT [facility] ([facility]) CPK creatine phosphokinase 252 U/L 26-192 Above high nor mal CPK Creatine Phosphokinase JOHANA ([facility]) mb/CK relative index < or =4 mb/CK Relative Index JOHANA ([facility]) troponin I < 0.02 < 0.10 Troponin I JOHANA ([facility]) ID Date Data Source [id number] 04/21/2021 01:37:00 PM [facility] Name Value Range Interpretation Code Description Data Larissa rce(s) Supporting Document(s) thyroxine (T4) 11.2 ug/dL 4.5-12.0 Thyroxine (T4) JOHANA ([facility]) T uptake 31 % 30-39 T Uptake JOHANA ([facility]) free thyroxine index 3.5 % 1.3-4.8 Free Thyroxine Index JOHANA ([facility]) thyroid stimulating hormone 3.720 uIU/mL 0.358-3.740 Thyroid Stimulating Hormone FLORAHOME ([facility]) ID Date Data Source [id number] 04/21/2021 01:37:00 PM [facility] Name Value Range Interpretation Code Description Data Larissa rce(s) Supporting Document(s) CPK creatine phosphokinase 252 U/L 26-192 Above high nor mal CPK Creatine Phosphokinase JOHANA ([facility]) mb/CK relative index < or =4 mb/CK Relative Index JOHANA ([facility]) CK-mb value mass 1.6 NG/mL <3.6 CK-mb Value Mass AT [facility] ([facility]) troponin I < 0.02 < 0.10 Troponin I JOHANA ([facility]) ID Date Data Source [id number] 04/21/2021 01:37:00 PM EDT [facility]) Name Value Range Interpretation Code Description Data Larissa rce(s) Supporting Document(s) T uptake 31 % 30-39 T Uptake JOHANA ([facility]) thyroxine (T4) 11.2 ug/dL 4.5-12.0 Thyroxine (T4) JOHANA ([facility]) free thyroxine index 3.5 % 1.3-4.8 Free Thyroxine Index JOHANA ([facility]) thyroid stimulating hormone 3.720 uIU/mL 0.358-3.740 Thyroid Stimulating Hormone JOHANA ([facility]) ID Date Data Source [id number] 04/21/2021 01:37:00 PM [facility] Name Value Range Interpretation Code Description Data Larissa rce(s) Supporting Document(s) CK-mb value mass 1.6 NG/mL <3.6 CK-mb Value Mass AT [facility] ([facility]) CPK creatine phosphokinase 252 U/L 26-192 Above high nor mal CPK Creatine Phosphokinase JOHANA ([facility]) mb/CK relative index < or =4 mb/CK Relative Index FLOR[place]OME ([facility]) troponin I < 0.02 < 0.10 Troponin I [place]OME ([facility]) ID Date Data Source [id number] 04/21/2021 01:37:00 PM EDT JOHANA ([facility]) Name Value Range Interpretation Code Description Data Larissa rce(s) Supporting Document(s) T uptake 31 % 30-39 T Uptake JOHANA ([facility]) thyroxine (T4) 11.2 ug/dL 4.5-12.0 Thyroxine (T4) JOHANA ([facility]) free thyroxine index 3.5 % 1.3-4.8 Free Thyroxine Index JOHANA ([facility]) thyroid stimulating hormone 3.720 uIU/mL 0.358-3.740 Thyroid Stimulating Hormone JOHANA ([facility]) ID Date Data Source [id number] 04/21/2021 01:37:00 [facility] Name Value Range Interpretation Code Description Data Larissa rce(s) Supporting Document(s) CPK creatine phosphokinase 252 U/L 26-192 Above high nor mal CPK Creatine Phosphokinase JOHANA ([facility]) CK-mb value mass 1.6 NG/mL <3.6 CK-mb Value Mass AT [facility] ([facility]) mb/CK relative index < or =4 mb/CK Relative Index JOHANA ([facility]) troponin I < 0.02 < 0.10 Troponin I JOHANA ([facility]) ID Date Data Source [id number] 04/21/2021 01:37:00 PM EDT JOHANA ([facility]) Name Value Range Interpretation Code Description Data Larissa rce(s) Supporting Document(s) T uptake 31 % 30-39 T Uptake JOHANA ([facility]) thyroxine (T4) 11.2 ug/dL 4.5-12.0 Thyroxine (T4) JOHANA ([facility]) thyroid stimulating hormone 3.720 uIU/mL 0.358-3.740 Thyroid Stimulating Hormone JOHANA ([facility]) free thyroxine index 3.5 % 1.3-4.8 Free Thyroxine Index JOHANA ([facility]) ID Date Data Source [id number] 04/21/2021 01:37:00 PM EDT [facility]) Name Value Range Interpretation Code Description Data Larissa rce(s) Supporting Document(s) CPK creatine phosphokinase 252 U/L 26-192 Above high nor mal CPK Creatine Phosphokinase [place] [facility] [facility]) CK-mb value mass 1.6 NG/mL <3.6 CK-mb Value Mass AT [facility] ([facility]) mb/CK relative index < or =4 mb/CK Relative Index JOHANA ([facility]) troponin I < 0.02 < 0.10 [facility] ID Date Data Source [id number] 04/21/2021 09:32:00 AM EDT [facility]) Name Value Range Interpretation Code Description Data Larissa rce(s) Supporting Document(s) nt-pro BNP 3656 pg/mL <125 Above high normal Nt-pro BNP JOHANA ([facility]) ID Date Data Source [id number] 04/21/2021 09:32:00 AM EDT [facility]) Name Value Range Interpretation Code Description Data Larissa rce(s) Supporting Document(s) glucose, fasting 85 mg/dL 70-100 Glucose, Fasting AT [facility]) blood urea nitrogen 11 mg/dL 7-18 Blood Urea Nitro gen JOHANA ([facility]) creatinine for GFR 0.78 mg/dL 0.55-1.30 Creatinine for GF R FLORAHOME ([facility]) glomerular filtration rate > 60.0 >58 Glomerula r Filtration Rate [place] ([facility]) potassium serum 4.0 mEq/L 3.5-5.1 Potassium Serum [facility] ([facility]) sodium level 141 mEq/L 136-145 Sodium Level JOHANA ([facility]) carbon dioxide level 23 mEq/L 21-32 Carbon Dioxide Level JOHANA ([facility]) chloride level 112 mEq/L 98-107 Above high normal Chloride Level [place]OME ([facility]) anion gap 6 mEq/L 8-16 Below low normal Anion Gap [place] ( [facility]) calcium level 7.8 mg/dL 8.5-10.1 Below low normal Calcium Level AT [facility]) ID Date Data Source [id number] 04/21/2021 09:32:00 AM EDT [facility]) Name Value Range Interpretation Code Description Data Larissa rce(s) Supporting Document(s) AST/SGOT 22 U/L 7-37 AST/SGOT J[facility] ([facility]) ALT/SGPT 31 U/L 12-78 ALT/SGPT JOHANA ([facility]) alkaline phosphatase 54 U/L 45-117 Alkaline Phosph atase JOHANA ([facility]) bilirubin,total 0.4 mg/dL 0.2-1.0 Bilirubin,total ATHE ([facility]) bilirubin,direct 0.1 mg/dL 0.0-0.2 Bilirubin,direct AT [facility]) total protein 6.1 gm/dL 6.4-8.2 Below low normal Total Protein AT [facility]) albumin 3.4 gm/dL 3.2-5.2 Albumin JOHANA ([facility]) albumin/globulin ratio 1.2-2.2 Albumin/globu lilian Ratio [facility] ([facility]) ID Date Data Source [id number] 04/21/2021 09:32:00 AM EDT [facility]) Name Value Range Interpretation Code Description Data Larissa rce(s) Supporting Document(s) CPK creatine phosphokinase 200 U/L 26-192 Above high nor mal CPK Creatine Phosphokinase [place] ([facility]) mb/CK relative index < or =4 mb/CK Relative Index [facility]OME ([facility]) CK-mb value mass 2.5 NG/mL <3.6 CK-mb Value Mass AT [facility]) troponin I < 0.02 < 0.10 Troponin I [place] ([facility]) ID Date Data Source [id number] 04/21/2021 09:32:00 AM EDT [facility]) Name Value Range Interpretation Code Description Data Larissa rce(s) Supporting Document(s) white blood count 7.9 10 4.0-10.0 White Blood Count [place] ([facility]) red blood count 3.64 10 4.00-5.40 Below low normal Red Blood Coun t JOHANA ([facility]) hemoglobin 10.5 g/dL 12.0-15.5 Below low normal Hemoglobin JOHANA ( [facility]) hematocrit 33.5 % 36.0-47.0 Below low normal Hematocrit JOHANA ( [facility]) mean corpuscular volume 92.0 fL 80.0-96.0 Mean Corpusc ular Volume FLORAHOME ([facility]) mean corpuscular HGB conc 31.3 g/dL 32.0-36.5 Below low lin l Mean Corpuscular HGB Conc JOHANA ([facility]) mean corpuscular hemoglobin 28.8 pg 27.0-33.0 Mean Cor puscular Hemoglobin JOHANA ([facility]) red cell distribution width 15.0 % 11.5-14.5 Above high no rmal Red Cell Distribution Width JOHANA ([facility]) platelet count, automated 256 10 150-450 Platelet C ount, Automated JOHANA ([facility]) neutrophils % 70.1 % 36.0-66.0 Above high normal Neutrophils % A THENA ([facility]) mono % 7.0 % 2.0-8.0 [place] % JOHANA ([facility]) lymph % 19.7 % 24.0-44.0 Below low normal Lymph % JOHANA ( [facility]) eos % 2.3 % 0.0-3.0 Eos % JOHANA ([facility]) baso % 0.5 % 0.0-1.0 Baso % JOHANA ([facility]) immature granulocyte % 0.4 % 0-3.0 Immature Gran ulocyte % JOHANA ([facility]) nucleated red blood cell % 0.0 % 0-0 Nucleated Red Blood Cell % JOHANA ([facility]) neutrophils # 5.6 10 1.5-8.5 Neutrophils # JOHANA ( [facility]) mono # 0.6 10 0.0-0.8 [place] # JOHANA ([facility]) lymph # 1.6 10 1.5-5.0 Lymph # JOHANA ([facility]) eos # 0.2 10 0.0-0.5 Eos # JOHANA ([facility]) baso # 0.0 10 0.0-0.2 Baso # JOHANA ([facility]) ID Date Data Source [id number] 04/21/2021 09:32:00 AM EDT [place] ([facility]) Name Value Range Interpretation Code Description Data Larissa rce(s) Supporting Document(s) ID Date Data Source [id number] 04/21/2021 09:32:00 AM EDT [facility]) Name Value Range Interpretation Code Description Data Larissa rce(s) Supporting Document(s) thyroid stimulating hormone 6.040 uIU/mL 0.358-3.740 Above high no rmal Thyroid Stimulating Hormone [facility]) ID Date Data Source [id number] 04/21/2021 09:32:00 AM EDT [facility]) Name Value Range Interpretation Code Description Data Larissa rce(s) Supporting Document(s) nt-pro BNP 3656 pg/mL <125 Above high normal Nt-pro BNP [facility]) ID Date Data Source [id number] 04/21/2021 09:32:00 AM EDT [facility]) Name Value Range Interpretation Code Description Data Larissa rce(s) Supporting Document(s) glucose, fasting 85 mg/dL 70-100 Glucose, Fasting AT [facility]) blood urea nitrogen 11 mg/dL 7-18 Blood Urea Nitro gen FLORAHOME ([facility]) creatinine for GFR 0.78 mg/dL 0.55-1.30 Creatinine for GF R [facility]) glomerular filtration rate > 60.0 >58 Glomerula r Filtration Rate [place]OME ([facility]) sodium level 141 mEq/L 136-145 Sodium Level JOHANA ([facility]) chloride level 112 mEq/L 98-107 Above high normal Chloride Level [place]OME ([facility]) potassium serum 4.0 mEq/L 3.5-5.1 Potassium Serum ATH NA [facility]) carbon dioxide level 23 mEq/L 21-32 Carbon Dioxide Level [facility]) anion gap 6 mEq/L 8-16 Below low normal Anion Gap [facility]) calcium level 7.8 mg/dL 8.5-10.1 Below low normal Calcium Level AT [facility]) ID Date Data Source [id number] 04/21/2021 09:32:00 AM EDT JOHANA ([facility]) Name Value Range Interpretation Code Description Data Larissa rce(s) Supporting Document(s) AST/SGOT 22 U/L 7-37 AST/SGOT JOHANA ([facility]) ALT/SGPT 31 U/L 12-78 ALT/SGPT JOHANA ([facility]) alkaline phosphatase 54 U/L 45-117 Alkaline Phosph atase JOHANA ([facility]) bilirubin,total 0.4 mg/dL 0.2-1.0 Bilirubin,total [facility] ([facility]) total protein 6.1 gm/dL 6.4-8.2 Below low normal Total Protein AT [facility]) bilirubin,direct 0.1 mg/dL 0.0-0.2 Bilirubin,direct AT [facility] ([facility]) albumin 3.4 gm/dL 3.2-5.2 Albumin JOHANA ([facility]) albumin/globulin ratio 1.2-2.2 Albumin/globu lilian Ratio JOHANA ([facility]) ID Date Data Source [id number] 04/21/2021 09:32:00 AM EDT JOHANA ([facility]) Name Value Range Interpretation Code Description Data Larissa rce(s) Supporting Document(s) CPK creatine phosphokinase 200 U/L 26-192 Above high nor mal CPK Creatine Phosphokinase JOHANA ([facility]) CK-mb value mass 2.5 NG/mL <3.6 CK-mb Value Mass AT [facility] ([facility]) mb/CK relative index < or =4 mb/CK Relative Index JOHANA ([facility]) troponin I < 0.02 < 0.10 Troponin I JOHANA ([facility]) ID Date Data Source [id number] 04/21/2021 09:32:00 AM EDT JOHANA ([facility]) Name Value Range Interpretation Code Description Data Larissa rce(s) Supporting Document(s) white blood count 7.9 10 4.0-10.0 White Blood Count JOHANA ([facility]) red blood count 3.64 10 4.00-5.40 Below low normal Red Blood Coun t JOHANA ([facility]) hemoglobin 10.5 g/dL 12.0-15.5 Below low normal Hemoglobin JOHANA ( [facility]) hematocrit 33.5 % 36.0-47.0 Below low normal Hematocrit JOHANA ( [facility]) mean corpuscular volume 92.0 fL 80.0-96.0 Mean Corpusc ular Volume JOHANA ([facility]) mean corpuscular HGB conc 31.3 g/dL 32.0-36.5 Below low lin l Mean Corpuscular HGB Conc JOHANA ([facility]) mean corpuscular hemoglobin 28.8 pg 27.0-33.0 Mean Cor puscular Hemoglobin JOHANA ([facility]) platelet count, automated 256 10 150-450 Platelet C ount, Automated JOHANA ([facility]) red cell distribution width 15.0 % 11.5-14.5 Above high no rmal Red Cell Distribution Width JOHANA ([facility]) neutrophils % 70.1 % 36.0-66.0 Above high normal Neutrophils % A THENA ([facility]) lymph % 19.7 % 24.0-44.0 Below low normal Lymph % JOHANA ( [facility]) mono % 7.0 % 2.0-8.0 [place] % JOHANA ([facility]) baso % 0.5 % 0.0-1.0 Baso % JOHANA ([facility]) eos % 2.3 % 0.0-3.0 Eos % JOHANA ([facility]) immature granulocyte % 0.4 % 0-3.0 Immature Gran ulocyte % JOHANA ([facility]) nucleated red blood cell % 0.0 % 0-0 Nucleated Red Blood Cell % JOHANA ([facility]) neutrophils # 5.6 10 1.5-8.5 Neutrophils # JOHANA ( [facility]) lymph # 1.6 10 1.5-5.0 Lymph # JOHANA ([facility]) mono # 0.6 10 0.0-0.8 [place] # JOHANA ([facility]) baso # 0.0 10 0.0-0.2 Baso # JOHANA ([facility]) eos # 0.2 10 0.0-0.5 Eos # JOHANA ([facility]) ID Date Data Source [id number] 04/21/2021 09:32:00 AM EDT [place] ([facility]) Name Value Range Interpretation Code Description Data Larissa rce(s) Supporting Document(s) ID Date Data Source [id number] 04/21/2021 09:32:00 AM EDT [place] ([facility]) Name Value Range Interpretation Code Description Data Larissa rce(s) Supporting Document(s) thyroid stimulating hormone 6.040 uIU/mL 0.358-3.740 Above high no rmal Thyroid Stimulating Hormone [facility]OME ([facility]) ID Date Data Source [id number] 04/21/2021 09:32:00 AM EDT [facility]) Name Value Range Interpretation Code Description Data Larissa rce(s) Supporting Document(s) nt-pro BNP 3656 pg/mL <125 Above high normal Nt-pro BNP [facility]) ID Date Data Source [id number] 04/21/2021 09:32:00 AM EDT [place] ([facility]) Name Value Range Interpretation Code Description Data Larissa rce(s) Supporting Document(s) glucose, fasting 85 mg/dL 70-100 Glucose, Fasting AT [facility] ([facility]) creatinine for GFR 0.78 mg/dL 0.55-1.30 Creatinine for GF R FLOR[place]OME ([facility]) blood urea nitrogen 11 mg/dL 7-18 Blood Urea Nitro gen FLORAHOME ([facility]) sodium level 141 mEq/L 136-145 Sodium Level JOHANA ([facility]) glomerular filtration rate > 60.0 >58 Glomerula r Filtration Rate JOHANA ([facility]) potassium serum 4.0 mEq/L 3.5-5.1 Potassium Serum [facility] ([facility]) chloride level 112 mEq/L 98-107 Above high normal Chloride Level JOHANA ([facility]) carbon dioxide level 23 mEq/L 21-32 Carbon Dioxide Level JOHANA ([facility]) anion gap 6 mEq/L 8-16 Below low normal Anion Gap JOHANA ( [facility]) calcium level 7.8 mg/dL 8.5-10.1 Below low normal Calcium Level AT [facility]) ID Date Data Source [id number] 04/21/2021 09:32:00 AM EDT JOHANA ([facility]) Name Value Range Interpretation Code Description Data Larissa rce(s) Supporting Document(s) AST/SGOT 22 U/L 7-37 AST/SGOT JOHANA ([facility]) ALT/SGPT 31 U/L 12-78 ALT/SGPT JOHANA ([facility]) alkaline phosphatase 54 U/L 45-117 Alkaline Phosph atase JOHANA ([facility]) bilirubin,total 0.4 mg/dL 0.2-1.0 Bilirubin,total AT[facility]) bilirubin,direct 0.1 mg/dL 0.0-0.2 Bilirubin,direct AT [facility]) total protein 6.1 gm/dL 6.4-8.2 Below low normal Total Protein AT [facility]) albumin 3.4 gm/dL 3.2-5.2 Albumin JOHANA ([facility]) albumin/globulin ratio 1.2-2.2 Albumin/globu lilian Ratio FLOR[facility]OME ([facility]) ID Date Data Source [id number] 04/21/2021 09:32:00 [facility] Name Value Range Interpretation Code Description Data Larissa rce(s) Supporting Document(s) CPK creatine phosphokinase 200 U/L 26-192 Above high nor mal CPK Creatine Phosphokinase JOHANA ([facility]) mb/CK relative index < or =4 mb/CK Relative Index [place]OME ([facility]) CK-mb value mass 2.5 NG/mL <3.6 CK-mb Value Mass AT [facility] ([facility]) troponin I < 0.02 < 0.10 Troponin I [place] ([facility]) ID Date Data Source [id number] 04/21/2021 09:32:00 AM EDT [place] ([facility]) Name Value Range Interpretation Code Description Data Larissa rce(s) Supporting Document(s) white blood count 7.9 10 4.0-10.0 White Blood Count [place] ([facility]) red blood count 3.64 10 4.00-5.40 Below low normal Red Blood Coun t [place] ([facility]) hemoglobin 10.5 g/dL 12.0-15.5 Below low normal Hemoglobin [place] ( [facility]) hematocrit 33.5 % 36.0-47.0 Below low normal Hematocrit [place] ( [facility]) mean corpuscular volume 92.0 fL 80.0-96.0 Mean Corpusc ular Volume [place] ([facility]) mean corpuscular hemoglobin 28.8 pg 27.0-33.0 Mean Cor puscular Hemoglobin [place] ([facility]) mean corpuscular HGB conc 31.3 g/dL 32.0-36.5 Below low lin l Mean Corpuscular HGB Conc JOHANA ([facility]) red cell distribution width 15.0 % 11.5-14.5 Above high no rmal Red Cell Distribution Width [place] ([facility]) platelet count, automated 256 10 150-450 [facility] C [facility]unt, [facility] lymph % 19.7 % 24.0-44.0 Below low normal Lymph % [place] ( [facility]) neutrophils % 70.1 % 36.0-66.0 Above high normal Neutrophils % A THENA ([facility]) mono % 7.0 % 2.0-8.0 [place] % JOHANA ([facility]) eos % 2.3 % 0.0-3.0 Eos % JOHANA ([facility]) baso % 0.5 % 0.0-1.0 Baso % [place] ([facility]) immature granulocyte % 0.4 % 0-3.0 Immature Gran ulocyte % JOHANA ([facility]) nucleated red blood cell % 0.0 % 0-0 Nucleated Red Blood Cell % JOHANA ([facility]) neutrophils # 5.6 10 1.5-8.5 Neutrophils # [place]OME ( [facility]) lymph # 1.6 10 1.5-5.0 Lymph # [facility] ([facility]) mono # 0.6 10 0.0-0.8 [place] # JOHANA ([facility]) eos # 0.2 10 0.0-0.5 Eos # JOHANA ([facility]) baso # 0.0 10 0.0-0.2 Baso # JOHANA ([facility]) ID Date Data Source [id number] 04/21/2021 09:32:00 AM EDT [facility] Name Value Range Interpretation Code Description Data Larissa rce(s) Supporting Document(s) SARS-CoV-2 (COVID 19) NEGATIVE - SARS-CoV-2 (COVID19) [facility] This lab was ordered by [facility] a nd reported by [facility]. ID Date Data Source [id number] 04/21/2021 09:32:00 AM EDT [place] ([facility]) Name Value Range Interpretation Code Description Data Larissa rce(s) Supporting Document(s) ID Date Data Source [id number] 04/21/2021 09:32:00 AM EDT [place] ([facility]) Name Value Range Interpretation Code Description Data Larissa rce(s) Supporting Document(s) thyroid stimulating hormone 6.040 uIU/mL 0.358-3.740 Above high no rmal Thyroid Stimulating Hormone [place] ([facility]) ID Date Data Source [id number] 04/21/2021 09:32:00 AM EDT [facility]) Name Value Range Interpretation Code Description Data Larissa rce(s) Supporting Document(s) nt-pro BNP 3656 pg/mL <125 Above high normal Nt-pro BNP [facility]) ID Date Data Source [id number] 04/21/2021 09:32:00 AM EDT [facility]) Name Value Range Interpretation Code Description Data Larissa rce(s) Supporting Document(s) glucose, fasting 85 mg/dL 70-100 Glucose, Fasting AT [facility]) blood urea nitrogen 11 mg/dL 7-18 Blood Urea Nitro gen [place] ([facility]) creatinine for GFR 0.78 mg/dL 0.55-1.30 Creatinine for GF R [place] ([facility]) glomerular filtration rate > 60.0 >58 Glomerula r Filtration Rate [place] ([facility]) potassium serum 4.0 mEq/L 3.5-5.1 Potassium Serum ATH NA ([facility]) sodium level 141 mEq/L 136-145 Sodium Level JOHANA ([facility]) chloride level 112 mEq/L 98-107 Above high normal Chloride Level [place] ([facility]) carbon dioxide level 23 mEq/L 21-32 Carbon Dioxide Level [facility]) anion gap 6 mEq/L 8-16 Below low normal Anion Gap [place] ( [facility]) calcium level 7.8 mg/dL 8.5-10.1 Below low normal Calcium Level AT [facility]) ID Date Data Source [id number] 04/21/2021 09:32:00 AM EDT [facility]) Name Value Range Interpretation Code Description Data Larissa rce(s) Supporting Document(s) AST/SGOT 22 U/L 7-37 AST/SGOT JOHANA ([facility]) ALT/SGPT 31 U/L 12-78 ALT/SGPT JOHANA ([facility]) alkaline phosphatase 54 U/L 45-117 Alkaline Phosph atase JOHANA ([facility]) bilirubin,total 0.4 mg/dL 0.2-1.0 Bilirubin,total [facility] ([facility]) bilirubin,direct 0.1 mg/dL 0.0-0.2 Bilirubin,direct AT [facility] ([facility]) total protein 6.1 gm/dL 6.4-8.2 Below low normal Total Protein AT [facility]) albumin 3.4 gm/dL 3.2-5.2 Albumin [place] ([facility]) albumin/globulin ratio 1.2-2.2 Albumin/globu lilian Ratio [facility] ([facility]) ID Date Data Source [id number] 04/21/2021 09:32:00 AM EDT [place] ([facility]) Name Value Range Interpretation Code Description Data Larissa rce(s) Supporting Document(s) CPK creatine phosphokinase 200 U/L 26-192 Above high nor mal CPK Creatine Phosphokinase JOHANA ([facility]) CK-mb value mass 2.5 NG/mL <3.6 CK-mb Value Mass AT [facility] ([facility]) mb/CK relative index < or =4 mb/CK Relative Index JOHANA ([facility]) troponin I < 0.02 < 0.10 Troponin I [place] ([facility]) ID Date Data Source [id number] 04/21/2021 09:32:00 AM EDT [facility]) Name Value Range Interpretation Code Description Data Larissa rce(s) Supporting Document(s) white blood count 7.9 10 4.0-10.0 White Blood Count JOHANA ([facility]) red blood count 3.64 10 4.00-5.40 Below low normal Red Blood Coun t JOHANA ([facility]) hemoglobin 10.5 g/dL 12.0-15.5 Below low normal Hemoglobin JOHANA ( [facility]) hematocrit 33.5 % 36.0-47.0 Below low normal Hematocrit JOHANA ( [facility]) mean corpuscular volume 92.0 fL 80.0-96.0 Mean Corpusc ular Volume JOHANA ([facility]) mean corpuscular hemoglobin 28.8 pg 27.0-33.0 Mean Cor puscular Hemoglobin JOHANA ([facility]) mean corpuscular HGB conc 31.3 g/dL 32.0-36.5 Below low lin l Mean Corpuscular HGB Conc JOHANA ([facility]) red cell distribution width 15.0 % 11.5-14.5 Above high no rmal Red Cell Distribution Width JOHANA ([facility]) platelet count, automated 256 10 150-450 Platelet C ount, Automated JOHANA ([facility]) neutrophils % 70.1 % 36.0-66.0 Above high normal Neutrophils % A THENA ([facility]) lymph % 19.7 % 24.0-44.0 Below low normal Lymph % JOHANA ( [facility]) mono % 7.0 % 2.0-8.0 [place] % JOHANA ([facility]) eos % 2.3 % 0.0-3.0 Eos % JOHANA ([facility]) baso % 0.5 % 0.0-1.0 Baso % JOHANA ([facility]) immature granulocyte % 0.4 % 0-3.0 Immature Gran ulocyte % JOHANA ([facility]) nucleated red blood cell % 0.0 % 0-0 Nucleated Red Blood Cell % JOHANA ([facility]) neutrophils # 5.6 10 1.5-8.5 Neutrophils # JOHANA ( [facility]) lymph # 1.6 10 1.5-5.0 Lymph # JOHANA ([facility]) eos # 0.2 10 0.0-0.5 Eos # JOHANA ([facility]) mono # 0.6 10 0.0-0.8 [place] # JOHANA ([facility]) baso # 0.0 10 0.0-0.2 Baso # JOHANA ([facility]) ID Date Data Source [id number] 04/21/2021 09:32:00 AM EDT [place] ([facility]) Name Value Range Interpretation Code Description Data Larissa rce(s) Supporting Document(s) ID Date Data Source [id number] 04/21/2021 09:32:00 AM EDT [facility] ([facility]) Name Value Range Interpretation Code Description Data Larissa rce(s) Supporting Document(s) thyroid stimulating hormone 6.040 uIU/mL 0.358-3.740 Above high no rmal Thyroid Stimulating Hormone [facility] ([facility]) ID Date Data Source [id number] 04/21/2021 09:32:00 AM EDT [place] ([facility]) Name Value Range Interpretation Code Description Data Larissa rce(s) Supporting Document(s) nt-pro BNP 3656 pg/mL <125 Above high normal Nt-pro BNP [place] ([facility]) ID Date Data Source [id number] 04/21/2021 09:32:00 AM EDT [facility]) Name Value Range Interpretation Code Description Data Larissa rce(s) Supporting Document(s) glucose, fasting 85 mg/dL 70-100 Glucose, Fasting AT [facility]) blood urea nitrogen 11 mg/dL 7-18 Blood Urea Nitro gen JOHANA ([facility]) glomerular filtration rate > 60.0 >58 Glomerula r Filtration Rate JOHANA ([facility]) creatinine for GFR 0.78 mg/dL 0.55-1.30 Creatinine for GF R JOHANA ([facility]) sodium level 141 mEq/L 136-145 Sodium Level JOHANA ([facility]) potassium serum 4.0 mEq/L 3.5-5.1 Potassium Serum ATHE NA ([facility]) chloride level 112 mEq/L 98-107 Above high normal Chloride Level JOHANA ([facility]) carbon dioxide level 23 mEq/L 21-32 Carbon Dioxide Level JOHANA ([facility]) anion gap 6 mEq/L 8-16 Below low normal Anion Gap JOHANA ( [facility]) calcium level 7.8 mg/dL 8.5-10.1 Below low normal Calcium Level AT [facility]) ID Date Data Source [id number] 04/21/2021 09:32:00 AM EDT [place] ([facility]) Name Value Range Interpretation Code Description Data Larissa rce(s) Supporting Document(s) AST/SGOT 22 U/L 7-37 AST/SGOT [facility] ([facility]) ALT/SGPT 31 U/L 12-78 ALT/SGPT [place] ([facility]) alkaline phosphatase 54 U/L 45-117 Alkaline Phosph atase JOHANA ([facility]) bilirubin,total 0.4 mg/dL 0.2-1.0 Bilirubin,total ATHE ([facility]) total protein 6.1 gm/dL 6.4-8.2 Below low normal Total Protein AT [facility] ([facility]) bilirubin,direct 0.1 mg/dL 0.0-0.2 Bilirubin,direct AT [facility] ([facility]) albumin 3.4 gm/dL 3.2-5.2 Albumin JOHANA ([facility]) albumin/globulin ratio 1.2-2.2 Albumin/globu lilian Ratio [place] ([facility]) ID Date Data Source [id number] 04/21/2021 09:32:00 AM EDT [place] ([facility]) Name Value Range Interpretation Code Description Data Larissa rce(s) Supporting Document(s) CPK creatine phosphokinase 200 U/L 26-192 Above high nor mal CPK Creatine Phosphokinase JOHANA ([facility]) CK-mb value mass 2.5 NG/mL <3.6 CK-mb Value Mass AT [facility] ([facility]) mb/CK relative index < or =4 mb/CK Relative Index JOHANA ([facility]) troponin I < 0.02 < 0.10 Troponin I JOHANA ([facility]) ID Date Data Source [id number] 04/21/2021 09:32:00 AM EDT [place] ([facility]) Name Value Range Interpretation Code Description Data Larissa rce(s) Supporting Document(s) white blood count 7.9 10 4.0-10.0 White Blood Count JOHANA ([facility]) red blood count 3.64 10 4.00-5.40 Below low normal Red Blood Coun t [place] ([facility]) hemoglobin 10.5 g/dL 12.0-15.5 Below low normal Hemoglobin [place] ( [facility]) hematocrit 33.5 % 36.0-47.0 Below low normal Hematocrit JOHANA ( [facility]) mean corpuscular volume 92.0 fL 80.0-96.0 Mean Corpusc ular Volume JOHANA ([facility]) mean corpuscular hemoglobin 28.8 pg 27.0-33.0 Mean Cor puscular Hemoglobin JOHANA ([facility]) mean corpuscular HGB conc 31.3 g/dL 32.0-36.5 Below low lin l Mean Corpuscular HGB Conc JOHANA ([facility]) red cell distribution width 15.0 % 11.5-14.5 Above high no rmal Red Cell Distribution Width JOHANA ([facility]) platelet count, automated 256 10 150-450 Platelet C ount, Automated JOHANA ([facility]) neutrophils % 70.1 % 36.0-66.0 Above high normal Neutrophils % A THENA ([facility]) lymph % 19.7 % 24.0-44.0 Below low normal Lymph % [place] ( [facility]) mono % 7.0 % 2.0-8.0 [place] % JOHANA ([facility]) eos % 2.3 % 0.0-3.0 Eos % JOHANA ([facility]) baso % 0.5 % 0.0-1.0 Baso % JOHANA ([facility]) immature granulocyte % 0.4 % 0-3.0 Immature Gran ulocyte % JOHANA ([facility]) nucleated red blood cell % 0.0 % 0-0 Nucleated Red Blood Cell % JOHANA ([facility]) neutrophils # 5.6 10 1.5-8.5 Neutrophils # JOHANA ( [facility]) lymph # 1.6 10 1.5-5.0 Lymph # JOHANA ([facility]) mono # 0.6 10 0.0-0.8 [place] # JOHANA ([facility]) eos # 0.2 10 0.0-0.5 Eos # JOHANA ([facility]) baso # 0.0 10 0.0-0.2 Baso # JOHANA ([facility]) ID Date Data Source [id number] 04/21/2021 09:32:00 AM EDT [place] ([facility]) Name Value Range Interpretation Code Description Data Larissa rce(s) Supporting Document(s) ID Date Data Source [id number] 04/21/2021 09:32:00 AM EDT [facility]) Name Value Range Interpretation Code Description Data Larissa rce(s) Supporting Document(s) thyroid stimulating hormone 6.040 uIU/mL 0.358-3.740 Above high no rmal Thyroid Stimulating Hormone [place] ([facility]) ID Date Data Source [id number] 04/16/2021 02:13:00 PM EDT [facility]) Name Value Range Interpretation Code Description Data Larissa rce(s) Supporting Document(s) cardiolipin IgG antibody <9 0-14 Cardiolipin IgG Antibody [place] ([facility]) cardiolipin IgA antibody <9 0-11 Cardiolipin IgA Antibody [place] ([facility]) cardiolipin IgM antibody <9 0-12 Cardiolipin IgM Antibody JOHANA ([facility]) ID Date Data Source [id number] 04/16/2021 02:13:00 PM EDT [facility]) Name Value Range Interpretation Code Description Data Larissa rce(s) Supporting Document(s) factor V leiden for medinet . Factor v Leiden for Medinet JOHANA ([facility]) ID Date Data Source [id number] 04/16/2021 02:13:00 PM EDT [place] ([facility]) Name Value Range Interpretation Code Description Data Larissa rce(s) Supporting Document(s) factor II prothrombin gene an . Factor II Prothrombin Gene an [facility]) ID Date Data Source [id number] 04/16/2021 02:13:00 PM EDT [facility]) Name Value Range Interpretation Code Description Data Larissa rce(s) Supporting Document(s) protein S functional activity 109 % 63-140 Protei n S Functional Activity [place] ([facility]) ID Date Data Source [id number] 04/16/2021 02:13:00 PM EDT [facility]) Name Value Range Interpretation Code Description Data Larissa rce(s) Supporting Document(s) protein C functional activity 112 % 73-180 Prote in C Functional Activity JOHANA ([facility]) ID Date Data Source [id number] 04/16/2021 02:13:00 PM EDT [facility]) Name Value Range Interpretation Code Description Data Larissa rce(s) Supporting Document(s) anti thrombin 3 antigen immuno 87 % 72-124 Anti Thrombin 3 Antigen Immuno JOHANA ([facility]) anti thrombin 3 funct activity 107 % 75-135 Anti Thrombin 3 Funct Activity [place] ([facility]) ID Date Data Source [id number] 04/16/2021 02:13:00 PM EDT JOHANA ([facility]) Name Value Range Interpretation Code Description Data Larissa rce(s) Supporting Document(s) beta-2 glycoprotein I cy IgG <9 0-20 Beta-2 Glycoprotein I Cy IgG JOHANA ([facility]) beta-2 glycoprotein I cy IgM <9 0-32 Beta-2 Glycoprotein I Cy IgM JOHANA ([facility]) beta-2 glycoprotein I cy IgA <9 0-25 Beta-2 Glycoprotein I Cy IgA JOHANA ([facility]) ID Date Data Source [id number] 04/16/2021 02:13[facility] Name Value Range Interpretation Code Description Data Larissa rce(s) Supporting Document(s) PTT lupus type anticoag screen 0-1.2 PTT L upus [facility] ID Date Data Source [id number] 04/16/2021 02:13:00 PM EDT [facility]) Name Value Range Interpretation Code Description Data Larissa rce(s) Supporting Document(s) ferritin 45 NG/mL 8-252 Ferritin JOHANA ([facility]) ID Date Data Source [id number] 04/16/2021 02:13:00 PM EDT [facility]) Name Value Range Interpretation Code Description Data Larissa rce(s) Supporting Document(s) folate 6.9 NG/mL >5.4 Folate JOHANA ([facility]) ID Date Data Source [id number] 04/16/2021 02:13:00 PM EDT [facility]) Name Value Range Interpretation Code Description Data Larissa rce(s) Supporting Document(s) vitamin B12 level 245 pg/mL 247-911 Below low normal Vitamin B12 Level JOHANA ([facility]) ID Date Data Source [id number] 04/16/2021 02:13:00 PM EDT [facility]) Name Value Range Interpretation Code Description Data Larissa rce(s) Supporting Document(s) iron (fe) 85 ug/dL 50-170 Iron (Fe) [place] ([facility]) total iron binding capacity 308 ug/dL 250-450 Total Ir on Binding Capacity [place] ([facility]) percent saturation 27.6 % 13.2-45.0 Percent Saturatio n [place] ([facility]) ID Date Data Source [id number] 04/16/2021 02:13:00 PM EDT [place] ([facility]) Name Value Range Interpretation Code Description Data Larissa rce(s) Supporting Document(s) glucose, fasting 86 mg/dL 70-100 Glucose, Fasting AT [facility]) creatinine for GFR 0.79 mg/dL 0.55-1.30 Creatinine for GF R [place] ([facility]) blood urea nitrogen 13 mg/dL 7-18 Blood Urea Nitro gen JOHANA ([facility]) sodium level 142 mEq/L 136-145 Sodium Level [place] ([facility]) glomerular filtration rate > 60.0 >58 Glomerula r Filtration Rate [place] ([facility]) potassium serum 3.7 mEq/L 3.5-5.1 [facility] chloride level 110 mEq/L 98-107 Above high normal Chloride Level [place] ([facility]) carbon dioxide level 28 mEq/L 21-32 Carbon Dioxide Level [place] ([facility]) calcium level 8.3 mg/dL 8.5-10.1 Below low normal Calcium Level AT [facility]) anion gap 4 mEq/L 8-16 Below low normal Anion Gap [place] ( [facility]) AST/SGOT 15 U/L 7-37 AST/SGOT [place] ([facility]) ALT/SGPT 21 U/L 12-78 ALT/SGPT [place] ([facility]) alkaline phosphatase 59 U/L 45-117 Alkaline Phosph atase JOHANA ([facility]) bilirubin,total 0.4 mg/dL 0.2-1.0 Bilirubin,total ATHE NA ([facility]) total protein 6.4 gm/dL 6.4-8.2 Total Protein JOHANA ( [facility]) albumin 3.6 gm/dL 3.2-5.2 Albumin JOHANA ([facility]) albumin/globulin ratio 1.2-2.2 Albumin/globu lilian Ratio JOHANA ([facility]) ID Date Data Source [id number] 04/16/2021 02:13:00 PM EDT JOHANA ([facility]) Name Value Range Interpretation Code Description Data Larissa rce(s) Supporting Document(s) white blood count 6.0 10 4.0-10.0 White Blood Count JOHANA ([facility]) red blood count 4.24 10 4.00-5.40 Red Blood Count ATHE ([facility]) hematocrit 38.6 % 36.0-47.0 Hematocrit JOHANA ([facility]) hemoglobin 12.0 g/dL 12.0-15.5 Hemoglobin JOHANA ([facility]) mean corpuscular hemoglobin 28.3 pg 27.0-33.0 Mean Cor puscular Hemoglobin JOHANA ([facility]) mean corpuscular volume 91.0 fL 80.0-96.0 Mean Corpusc ular Volume JOHANA ([facility]) red cell distribution width 14.6 % 11.5-14.5 Above high no rmal Red Cell Distribution Width JOHANA ([facility]) mean corpuscular HGB conc 31.1 g/dL 32.0-36.5 Below low lin l Mean Corpuscular HGB Conc JOHANA ([facility]) platelet count, automated 242 10 150-450 Platelet C ount, Automated JOHANA ([facility]) neutrophils % 54.8 % 36.0-66.0 Neutrophils % JOHANA ( [facility]) lymph % 31.9 % 24.0-44.0 Lymph % JOHANA ([facility]) mono % 9.3 % 2.0-8.0 Above high normal [place] % JOHANA ([facility]) eos % 2.8 % 0.0-3.0 Eos % JOHANA ([facility]) baso % 0.7 % 0.0-1.0 Baso % JOHANA ([facility]) immature granulocyte % 0.5 % 0-3.0 Immature Gran ulocyte % JOHANA ([facility]) nucleated red blood cell % 0.0 % 0-0 Nucleated Red Blood Cell % JOHANA ([facility]) neutrophils # 3.3 10 1.5-8.5 Neutrophils # JOHANA ( [facility]) lymph # 1.9 10 1.5-5.0 Lymph # JOHANA ([facility]) mono # 0.6 10 0.0-0.8 [place] # JOHANA ([facility]) eos # 0.2 10 0.0-0.5 Eos # JOHANA ([facility]) baso # 0.0 10 0.0-0.2 Baso # JOHANA ([facility]) ID Date Data Source [id number] 04/16/2021 02:13:00 PM EDT [place] ([facility]) Name Value Range Interpretation Code Description Data Larissa rce(s) Supporting Document(s) cardiolipin IgA antibody <9 0-11 Cardiolipin IgA Antibody JOHANA ([facility]) cardiolipin IgM antibody <9 0-12 Cardiolipin IgM Antibody JOHANA ([facility]) cardiolipin IgG antibody <9 0-14 Cardiolipin IgG Antibody JOHANA ([facility]) ID Date Data Source [id number] 04/16/2021 02:13:00 PM EDT [place] ([facility]) Name Value Range Interpretation Code Description Data Larissa rce(s) Supporting Document(s) factor V leiden for medinet . Factor v Leiden for Medinet JOHANA ([facility]) ID Date Data Source [id number] 04/16/2021 02:13:00 PM EDT [facility]) Name Value Range Interpretation Code Description Data Larissa rce(s) Supporting Document(s) factor II prothrombin gene an . Factor II Prothrombin Gene an [place] ([facility]) ID Date Data Source [id number] 04/16/2021 02:13:00 PM EDT [place] ([facility]) Name Value Range Interpretation Code Description Data Larissa rce(s) Supporting Document(s) protein S functional activity 109 % 63-140 Protei n S Functional Activity [facility]) ID Date Data Source [id number] 04/16/2021 02:13:00 PM EDT [facility]) Name Value Range Interpretation Code Description Data Larissa rce(s) Supporting Document(s) protein C functional activity 112 % 73-180 Prote in C Functional Activity [place] ([facility]) ID Date Data Source [id number] 04/16/2021 02:13:00 PM EDT [facility]) Name Value Range Interpretation Code Description Data Larissa rce(s) Supporting Document(s) anti thrombin 3 antigen immuno 87 % 72-124 Anti Thrombin 3 Antigen Immuno JOHANA ([facility]) anti thrombin 3 funct activity 107 % 75-135 Anti Thrombin 3 Funct Activity [place] ([facility]) ID Date Data Source [id number] 04/16/2021 02:13:00 PM EDT [facility]) Name Value Range Interpretation Code Description Data Larissa rce(s) Supporting Document(s) beta-2 glycoprotein I cy IgG <9 0-20 Beta-2 Glycoprotein I Cy IgG [place] ([facility]) beta-2 glycoprotein I cy IgM <9 0-32 Beta-2 Glycoprotein I Cy IgM JOHANA ([facility]) beta-2 glycoprotein I cy IgA <9 0-25 Beta-2 Glycoprotein I Cy IgA JOHANA ([facility]) ID Date Data Source [id number] 04/16/2021 02:13:00 PM EDT JOHANA ([facility]) Name Value Range Interpretation Code Description Data Larissa rce(s) Supporting Document(s) PTT lupus type anticoag screen 0-1.2 PTT L upus Type Anticoag Screen JOHANA ([facility]) ID Date Data Source [id number] 04/16/2021 02:13[facility] Name Value Range Interpretation Code Description Data Larissa rce(s) Supporting Document(s) ferritin 45 NG/mL 8-252 Ferritin J[place] ([facility]) ID Date Data Source [id number] 04/16/2021 02:13:00 [facility] Name Value Range Interpretation Code Description Data Larissa rce(s) Supporting Document(s) folate 6.9 NG/mL >5.4 Folate JOHANA ([facility]) ID Date Data Source [id number] 04/16/2021 02:13:00 [facility] Name Value Range Interpretation Code Description Data Larissa rce(s) Supporting Document(s) vitamin B12 level 245 pg/mL 247-911 Below low normal Vitamin B12 Level JOHANA ([facility]) ID Date Data Source [id number] 04/16/2021 02:13:00 [facility] Name Value Range Interpretation Code Description Data Larissa rce(s) Supporting Document(s) iron (fe) 85 ug/dL 50-170 Iron (Fe) JOHANA ([facility]) total iron binding capacity 308 ug/dL 250-450 Total Ir on Binding Capacity [place] ([facility]) percent saturation 27.6 % 13.2-45.0 Percent Saturatio n [place] ([facility]) ID Date Data Source [id number] 04/16/2021 02:13:00 PM EDT [place] ([facility]) Name Value Range Interpretation Code Description Data Larissa rce(s) Supporting Document(s) glucose, fasting 86 mg/dL 70-100 Glucose, Fasting AT [facility]) blood urea nitrogen 13 mg/dL 7-18 Blood Urea Nitro gen [place] ([facility]) creatinine for GFR 0.79 mg/dL 0.55-1.30 Creatinine for GF R [place] ([facility]) glomerular filtration rate > 60.0 >58 Glomerula r Filtration Rate [place] ([facility]) sodium level 142 mEq/L 136-145 Sodium Level [place] ([facility]) potassium serum 3.7 mEq/L 3.5-5.1 Potassium Serum [facility] ([facility]) chloride level 110 mEq/L 98-107 Above high normal Chloride Level [place] ([facility]) carbon dioxide level 28 mEq/L 21-32 Carbon Dioxide Level [place] ([facility]) calcium level 8.3 mg/dL 8.5-10.1 Below low normal Calcium Level AT [facility]) anion gap 4 mEq/L 8-16 Below low normal Anion Gap [place] ( [facility]) ALT/SGPT 21 U/L 12-78 ALT/SGPT [place] ([facility]) AST/SGOT 15 U/L 7-37 AST/SGOT [place] ([facility]) alkaline phosphatase 59 U/L 45-117 Alkaline Phosph atase [place] ([facility]) bilirubin,total 0.4 mg/dL 0.2-1.0 Bilirubin,total ATHE [facility]) total protein 6.4 gm/dL 6.4-8.2 Total Protein [place] ( [facility]) albumin 3.6 gm/dL 3.2-5.2 Albumin JOHANA ([facility]) albumin/globulin ratio 1.2-2.2 Albumin/globu lilian Ratio JOHANA ([facility]) ID Date Data Source [id number] 04/16/2021 02:13:00 PM EDT JOHANA ([facility]) Name Value Range Interpretation Code Description Data Larissa rce(s) Supporting Document(s) white blood count 6.0 10 4.0-10.0 White Blood Count JOHANA ([facility]) red blood count 4.24 10 4.00-5.40 Red Blood Count ATHE ([facility]) hemoglobin 12.0 g/dL 12.0-15.5 Hemoglobin JOHANA ([facility]) mean corpuscular volume 91.0 fL 80.0-96.0 Mean Corpusc ular Volume JOHANA ([facility]) hematocrit 38.6 % 36.0-47.0 Hematocrit JOHANA ([facility]) mean corpuscular hemoglobin 28.3 pg 27.0-33.0 Mean Cor puscular Hemoglobin JOHANA ([facility]) red cell distribution width 14.6 % 11.5-14.5 Above high no rmal Red Cell Distribution Width JOHANA ([facility]) mean corpuscular HGB conc 31.1 g/dL 32.0-36.5 Below low lin l Mean Corpuscular HGB Conc JOHANA ([facility]) platelet count, automated 242 10 150-450 Platelet C ount, Automated JOHANA ([facility]) neutrophils % 54.8 % 36.0-66.0 Neutrophils % JOHANA ( [facility]) lymph % 31.9 % 24.0-44.0 Lymph % [place] ([facility]) mono % 9.3 % 2.0-8.0 Above high normal [place] % JOHANA ([facility]) eos % 2.8 % 0.0-3.0 Eos % JOHANA ([facility]) baso % 0.7 % 0.0-1.0 Baso % JOHANA ([facility]) nucleated red blood cell % 0.0 % 0-0 Nucleated Red Blood Cell % JOHANA ([facility]) immature granulocyte % 0.5 % 0-3.0 Immature Gran ulocyte % JOHANA ([facility]) neutrophils # 3.3 10 1.5-8.5 Neutrophils # JOHANA ( [facility]) lymph # 1.9 10 1.5-5.0 Lymph # JOHANA ([facility]) mono # 0.6 10 0.0-0.8 [place] # JOHANA ([facility]) baso # 0.0 10 0.0-0.2 Baso # JOHANA ([facility]) eos # 0.2 10 0.0-0.5 Eos # JOHANA ([facility]) ID Date Data Source [id number] 04/16/2021 02:13:00 PM EDT [place] ([facility]) Name Value Range Interpretation Code Description Data Larissa rce(s) Supporting Document(s) cardiolipin IgA antibody <9 0-11 Cardiolipin IgA Antibody JOHANA ([facility]) cardiolipin IgG antibody <9 0-14 Cardiolipin IgG Antibody [place] ([facility]) cardiolipin IgM antibody <9 0-12 Cardiolipin IgM Antibody [place] ([facility]) ID Date Data Source [id number] 04/16/2021 02:13:00 PM EDT [place] ([facility]) Name Value Range Interpretation Code Description Data Larissa rce(s) Supporting Document(s) [facility] Factor v Leiden for Medinet [facility]) ID Date Data Source [id number] 04/16/2021 02:13:00 PM EDT [facility]) Name Value Range Interpretation Code Description Data Larissa rce(s) Supporting Document(s) factor II prothrombin gene an . Factor II Prothrombin Gene an [place] ([facility]) ID Date Data Source [id number] 04/16/2021 02:13:00 PM EDT [place] ([facility]) Name Value Range Interpretation Code Description Data Larissa rce(s) Supporting Document(s) protein S functional activity 109 % 63-140 Protei n S Functional Activity [place] ([facility]) ID Date Data Source [id number] 04/16/2021 02:13:00 PM EDT [place] ([facility]) Name Value Range Interpretation Code Description Data Larissa rce(s) Supporting Document(s) protein C functional activity 112 % 73-180 Prote in C Functional Activity [place] ([facility]) ID Date Data Source [id number] 04/16/2021 02:13:00 PM EDT [place] ([facility]) Name Value Range Interpretation Code Description Data Larissa rce(s) Supporting Document(s) anti thrombin 3 funct activity 107 % 75-135 Anti Thrombin 3 Funct Activity [place]OR[facility] ([facility]) anti thrombin 3 antigen immuno 87 % 72-124 Anti Thrombin 3 Antigen Immuno [facility] ([facility]) ID Date Data Source [id number] 04/16/2021 02:13:00 PM EDT [place] ([facility]) Name Value Range Interpretation Code Description Data Larissa rce(s) Supporting Document(s) beta-2 glycoprotein I cy IgG <9 0-20 Beta-2 Glycoprotein I Cy IgG JOHANA ([facility]) beta-2 glycoprotein I cy IgA <9 0-25 Beta-2 Glycoprotein I Cy IgA JOHANA ([facility]) beta-2 glycoprotein I cy IgM <9 0-32 Beta-2 Glycoprotein I Cy IgM [facility]) ID Date Data Source [id number] 04/16/2021 02:13:00 PM EDT JOHANA ([facility]) Name Value Range Interpretation Code Description Data Larissa rce(s) Supporting Document(s) PTT lupus type anticoag screen 0-1.2 PTT L upus Type Anticoag Screen JOHANA ([facility]) ID Date Data Source [id number] 04/16/2021 02:13:00 PM EDT JOHANA ([facility]) Name Value Range Interpretation Code Description Data Larissa rce(s) Supporting Document(s) ferritin 45 NG/mL 8-252 Ferritin [facility] ([facility]) ID Date Data Source [id number] 04/16/2021 02:13:00 PM EDT JOHANA ([facility]) Name Value Range Interpretation Code Description Data Larissa rce(s) Supporting Document(s) folate 6.9 NG/mL >5.4 Folate JOHANA ([facility]) ID Date Data Source [id number] 04/16/2021 02:13:00 PM EDT JOHANA ([facility]) Name Value Range Interpretation Code Description Data Larissa rce(s) Supporting Document(s) vitamin B12 level 245 pg/mL 247-911 Below low normal Vitamin B12 Level JOHANA ([facility]) ID Date Data Source [id number] 04/16/[facility]21 02:13[facility] Name Value Range Interpretation Code Description Data Larissa rce(s) Supporting Document(s) iron (fe) 85 ug/dL 50-170 Iron (Fe) JOHANA ([facility]) total iron binding capacity 308 ug/dL 250-450 Total Ir on Binding Capacity JOHANA ([facility]) percent saturation 27.6 % 13.2-45.0 Percent Saturatio n FLORAHOME ([facility]) ID Date Data Source [id number] 04/16/2021 02:13:00 PM EDT [place]OR[place] ([facility]) Name Value Range Interpretation Code Description Data Larissa rce(s) Supporting Document(s) glucose, fasting 86 mg/dL 70-100 Glucose, Fasting AT [facility]) creatinine for GFR 0.79 mg/dL 0.55-1.30 Creatinine for GF R JOHANA ([facility]) blood urea nitrogen 13 mg/dL 7-18 Blood Urea Nitro gen JOHANA ([facility]) sodium level 142 mEq/L 136-145 Sodium Level JOHANA ([facility]) potassium serum 3.7 mEq/L 3.5-5.1 Potassium Serum ATHE ([facility]) glomerular filtration rate > 60.0 >58 Glomerula r Filtration Rate JOHANA ([facility]) carbon dioxide level 28 mEq/L 21-32 Carbon Dioxide Level FLOR[place]OME ([facility]) chloride level 110 mEq/L 98-107 Above high normal Chloride Level [place]OR[place]OME ([facility]) anion gap 4 mEq/L 8-16 Below low normal Anion Gap [place]OR[place]OME ( [facility]) calcium level 8.3 mg/dL 8.5-10.1 Below low normal Calcium Level AT [facility] ([facility]) AST/SGOT 15 U/L 7-37 AST/SGOT [facility] ([facility]) alkaline phosphatase 59 U/L 45-117 Alkaline Phosph atase JOHANA ([facility]) bilirubin,total 0.4 mg/dL 0.2-1.0 Bilirubin,total ATHE ([facility]) ALT/SGPT 21 U/L 12-78 ALT/SGPT JOHANA ([facility]) albumin 3.6 gm/dL 3.2-5.2 Albumin JOHANA ([facility]) total protein 6.4 gm/dL 6.4-8.2 Total Protein JOHANA ( [facility]) albumin/globulin ratio 1.2-2.2 Albumin/globu lilian Ratio FLORAHOME ([facility]) ID Date Data Source [id number] 04/16/2021 02:13:00 PM EDT [place]OR[place]OME ([facility]) Name Value Range Interpretation Code Description Data Larissa rce(s) Supporting Document(s) white blood count 6.0 10 4.0-10.0 White Blood Count JOHANA ([facility]) red blood count 4.24 10 4.00-5.40 Red Blood Count ATHE NA ([facility]) hemoglobin 12.0 g/dL 12.0-15.5 Hemoglobin JOHANA ([facility]) mean corpuscular volume 91.0 fL 80.0-96.0 Mean Corpusc ular Volume JOHANA ([facility]) hematocrit 38.6 % 36.0-47.0 Hematocrit JOHANA ([facility]) mean corpuscular hemoglobin 28.3 pg 27.0-33.0 Mean Cor puscular Hemoglobin JOHANA ([facility]) red cell distribution width 14.6 % 11.5-14.5 Above high no rmal Red Cell Distribution Width JOHANA ([facility]) platelet count, automated 242 10 150-450 Platelet C ount, Automated JOHANA ([facility]) mean corpuscular HGB conc 31.1 g/dL 32.0-36.5 Below low lin l Mean Corpuscular HGB Conc JOHANA ([facility]) neutrophils % 54.8 % 36.0-66.0 Neutrophils % JOHANA ( [facility]) lymph % 31.9 % 24.0-44.0 Lymph % JOHANA ([facility]) mono % 9.3 % 2.0-8.0 Above high normal [place] % JOHANA ([facility]) baso % 0.7 % 0.0-1.0 Baso % JOHANA ([facility]) eos % 2.8 % 0.0-3.0 Eos % JOHANA ([facility]) immature granulocyte % 0.5 % 0-3.0 Immature Gran ulocyte % JOHANA ([facility]) nucleated red blood cell % 0.0 % 0-0 Nucleated Red Blood Cell % JOHANA ([facility]) neutrophils # 3.3 10 1.5-8.5 Neutrophils # JOHANA ( [facility]) lymph # 1.9 10 1.5-5.0 Lymph # JOHANA ([facility]) mono # 0.6 10 0.0-0.8 [place] # JOHANA ([facility]) eos # 0.2 10 0.0-0.5 Eos # JOHANA ([facility]) baso # 0.0 10 0.0-0.2 Baso # JOHANA ([facility]) ID Date Data Source [id number] 04/16/2021 02:13:00 PM EDT JOHANA ([facility]) Name Value Range Interpretation Code Description Data Larissa rce(s) Supporting Document(s) cardiolipin IgA antibody <9 0-11 Cardiolipin IgA Antibody JOHANA ([facility]) cardiolipin IgG antibody <9 0-14 Cardiolipin IgG Antibody FLORAHOME ([facility]) cardiolipin IgM antibody <9 0-12 Cardiolipin IgM Antibody [place]OME ([facility]) ID Date Data Source [id number] 04/16/2021 02:13:00 PM EDT [place]OR[place]OME ([facility]) Name Value Range Interpretation Code Description Data Larissa rce(s) Supporting Document(s) factor V leiden for medinet . Factor v Leiden for Medinet [place]OR[place]OME ([facility]) ID Date Data Source [id number] 04/16/2021 02:13:00 PM EDT [place]OR[place]OME ([facility]) Name Value Range Interpretation Code Description Data Larissa rce(s) Supporting Document(s) factor II prothrombin gene an . Factor II Prothrombin Gene an [place]OME ([facility]) ID Date Data Source [id number] 04/16/2021 02:13:00 PM EDT [facility]) Name Value Range Interpretation Code Description Data Larissa rce(s) Supporting Document(s) protein S functional activity 109 % 63-140 Protei n S Functional Activity FLOR[place]OME ([facility]) ID Date Data Source [id number] 04/16/2021 02:13:00 PM EDT JOHANA ([facility]) Name Value Range Interpretation Code Description Data Larissa rce(s) Supporting Document(s) protein C functional activity 112 % 73-180 Prote in C Functional Activity JOHANA ([facility]) ID Date Data Source [id number] 04/16/2021 02:13:00 PM EDT JOHANA ([facility]) Name Value Range Interpretation Code Description Data Larissa rce(s) Supporting Document(s) anti thrombin 3 antigen immuno 87 % 72-124 Anti Thrombin 3 Antigen Immuno JOHANA ([facility]) anti thrombin 3 funct activity 107 % 75-135 Anti Thrombin 3 Funct Activity FLOR[place]OME ([facility]) ID Date Data Source [id number] 04/16/2021 02:13:00 PM EDT JOHANA ([facility]) Name Value Range Interpretation Code Description Data Larissa rce(s) Supporting Document(s) beta-2 glycoprotein I cy IgA <9 0-25 Beta-2 Glycoprotein I Cy IgA JOHANA ([facility]) beta-2 glycoprotein I cy IgG <9 0-20 Beta-2 Glycoprotein I Cy IgG JOHANA ([facility]) beta-2 glycoprotein I cy IgM <9 0-32 Beta-2 Glycoprotein I Cy IgM JOHANA ([facility]) ID Date Data Source [id number] 04/16/2021 02:13:00 PM EDT JOHANA ([facility]) Name Value Range Interpretation Code Description Data Larissa rce(s) Supporting Document(s) PTT lupus type anticoag screen 0-1.2 PTT L upus Type Anticoag Screen [place]OR[place]OME ([facility]) ID Date Data Source [id number] 04/16/2021 02:13:00 PM EDT JOHANA ([facility]) Name Value Range Interpretation Code Description Data Larissa rce(s) Supporting Document(s) ferritin 45 NG/mL 8-252 Ferritin [facility]ANA ([facility]) ID Date Data Source [id number] 04/16/2021 02:13:00 PM EDT JOHANA ([facility]) Name Value Range Interpretation Code Description Data Larissa rce(s) Supporting Document(s) folate 6.9 NG/mL >5.4 Folate JOHANA ([facility]) ID Date Data Source [id number] 04/16/2021 02:13:00 PM EDT JOHANA ([facility]) Name Value Range Interpretation Code Description Data Larissa rce(s) Supporting Document(s) vitamin B12 level 245 pg/mL 247-911 Below low normal Vitamin B12 Level [place]OR[place]OME ([facility]) ID Date Data Source [id number] 04/16/2021 02:13:00 PM EDT JOHANA ([facility]) Name Value Range Interpretation Code Description Data Larissa rce(s) Supporting Document(s) total iron binding capacity 308 ug/dL 250-450 Total Ir on Binding Capacity JOHANA ([facility]) iron (fe) 85 ug/dL 50-170 Iron (Fe) JOHANA ([facility]) percent saturation 27.6 % 13.2-45.0 Percent Saturatio n JOHANA ([facility]) ID Date Data Source [id number] 04/16/2021 02:13:00 PM EDT JOHANA ([facility]) Name Value Range Interpretation Code Description Data Larissa rce(s) Supporting Document(s) blood urea nitrogen 13 mg/dL 7-18 Blood Urea Nitro gen JOHANA ([facility]) glucose, fasting 86 mg/dL 70-100 Glucose, Fasting AT [facility] ([facility]) sodium level 142 mEq/L 136-145 Sodium Level JOHANA (No [facility]) creatinine for GFR 0.79 mg/dL 0.55-1.30 Creatinine for GF R JOHANA ([facility]) glomerular filtration rate > 60.0 >58 Glomerula r Filtration Rate JOHANA ([facility]) potassium serum 3.7 mEq/L 3.5-5.1 Potassium Serum ATHE ([facility]) chloride level 110 mEq/L 98-107 Above high normal Chloride Level JOHANA ([facility]) carbon dioxide level 28 mEq/L 21-32 Carbon Dioxide Level JOHANA ([facility]) anion gap 4 mEq/L 8-16 Below low normal Anion Gap JOHANA ( [facility]) calcium level 8.3 mg/dL 8.5-10.1 Below low normal Calcium Level AT [facility]) ALT/SGPT 21 U/L 12-78 ALT/SGPT [facility] ([facility]) AST/SGOT 15 U/L 7-37 AST/SGOT JOHANA ([facility]) alkaline phosphatase 59 U/L 45-117 Alkaline Phosph atase JOHANA ([facility]) bilirubin,total 0.4 mg/dL 0.2-1.0 Bilirubin,total ATHE ([facility]) total protein 6.4 gm/dL 6.4-8.2 Total Protein JOHANA ( [facility]) albumin/globulin ratio 1.2-2.2 Albumin/globu lilian Ratio JOHANA ([facility]) albumin 3.6 gm/dL 3.2-5.2 Albumin JOHANA ([facility]) ID Date Data Source [id number] 04/16/2021 02:13:00 PM EDT JOHANA ([facility]) Name Value Range Interpretation Code Description Data Larissa rce(s) Supporting Document(s) white blood count 6.0 10 4.0-10.0 White Blood Count JOHANA ([facility]) red blood count 4.24 10 4.00-5.40 Red Blood Count ATHE ([facility]) hemoglobin 12.0 g/dL 12.0-15.5 Hemoglobin JOHANA ([facility]) hematocrit 38.6 % 36.0-47.0 Hematocrit JOHANA ([facility]) mean corpuscular volume 91.0 fL 80.0-96.0 Mean Corpusc ular Volume JOHANA ([facility]) mean corpuscular hemoglobin 28.3 pg 27.0-33.0 Mean Cor puscular Hemoglobin JOHANA ([facility]) mean corpuscular HGB conc 31.1 g/dL 32.0-36.5 Below low lin l Mean Corpuscular HGB Conc JOHANA ([facility]) platelet count, automated 242 10 150-450 Platelet C ount, Automated JOHAAN ([facility]) red cell distribution width 14.6 % 11.5-14.5 Above high no rmal Red Cell Distribution Width JOHANA ([facility]) neutrophils % 54.8 % 36.0-66.0 Neutrophils % JOHANA ( [facility]) lymph % 31.9 % 24.0-44.0 Lymph % JOHANA ([facility]) eos % 2.8 % 0.0-3.0 Eos % JOHANA ([facility]) mono % 9.3 % 2.0-8.0 Above high normal [place] % JOHANA ([facility]) baso % 0.7 % 0.0-1.0 Baso % JOHANA ([facility]) immature granulocyte % 0.5 % 0-3.0 Immature Gran ulocyte % JOHANA ([facility]) nucleated red blood cell % 0.0 % 0-0 Nucleated Red Blood Cell % JOHANA ([facility]) lymph # 1.9 10 1.5-5.0 Lymph # JOHANA ([facility]) neutrophils # 3.3 10 1.5-8.5 Neutrophils # JOHANA ( [facility]) mono # 0.6 10 0.0-0.8 [place] # JOHANA ([facility]) baso # 0.0 10 0.0-0.2 Baso # JOHANA ([facility]) eos # 0.2 10 0.0-0.5 Eos # JOHANA ([facility]) ID Date Data Source [id number] 04/16/2021 02:13:00 PM EDT [facility]) Name Value Range Interpretation Code Description Data Larissa rce(s) Supporting Document(s) cardiolipin IgA antibody <9 0-11 Cardiolipin IgA Antibody JOHANA ([facility]) cardiolipin IgG antibody <9 0-14 Cardiolipin IgG Antibody OJHANA ([facility]) cardiolipin IgM antibody <9 0-12 Cardiolipin IgM Antibody [facility]) ID Date Data Source [id number] 04/16/2021 02:13:00 PM EDT [facility]) Name Value Range Interpretation Code Description Data Larissa rce(s) Supporting Document(s) factor V leiden for medinet . Factor v Leiden for Medinet [facility]) ID Date Data Source [id number] 04/16/2021 02:13:00 PM EDT [facility]) Name Value Range Interpretation Code Description Data Larissa rce(s) Supporting Document(s) factor II prothrombin gene an . Factor II Prothrombin Gene an [facility]) ID Date Data Source [id number] 04/16/2021 02:13:00 PM EDT [facility]) Name Value Range Interpretation Code Description Data Larissa rce(s) Supporting Document(s) protein S functional activity 109 % 63-140 Protei n S Functional Activity [facility]) ID Date Data Source [id number] 04/16/2021 02:13:00 PM EDT [facility]) Name Value Range Interpretation Code Description Data Larissa rce(s) Supporting Document(s) protein C functional activity 112 % 73-180 [facility] Date Data Source [id number] 04/16/2021 02:13:00 PM EDT [place]OR[place]OME ([facility]) Name Value Range Interpretation Code Description Data Larissa rce(s) Supporting Document(s) anti thrombin 3 antigen immuno 87 % 72-124 Anti Thrombin 3 Antigen Immuno JOHANA ([facility]) anti thrombin 3 funct activity 107 % 75-135 Anti Thrombin 3 Funct Activity FLOR[place]OME ([facility]) ID Date Data Source [id number] 04/16/2021 02:13:00 PM EDT JOHANA ([facility]) Name Value Range Interpretation Code Description Data Larissa rce(s) Supporting Document(s) beta-2 glycoprotein I cy IgG <9 0-20 Beta-2 Glycoprotein I Cy IgG JOHANA ([facility]) beta-2 glycoprotein I cy IgA <9 0-25 Beta-2 Glycoprotein I Cy IgA FLOR[place]OME ([facility]) beta-2 glycoprotein I cy IgM <9 0-32 Beta-2 Glycoprotein I Cy IgM [place]OME ([facility]) ID Date Data Source [id number] 04/16/2021 02:13:00 PM EDT [facility]) Name Value Range Interpretation Code Description Data Larissa rce(s) Supporting Document(s) PTT lupus type anticoag screen 0-1.2 PTT L upus Type Anticoag Screen JOHANA ([facility]) ID Date Data Source [id number] 04/16/2021 02:13:00 PM EDT [place]OR[place]OME ([facility]) Name Value Range Interpretation Code Description Data Larissa rce(s) Supporting Document(s) ferritin 45 NG/mL 8-252 Ferritin [facility]OHANA ([facility]) ID Date Data Source [id number] 04/16/2021 02:13:00 PM EDT [facility]) Name Value Range Interpretation Code Description Data Larissa rce(s) Supporting Document(s) folate 6.9 NG/mL >5.4 Folate JOHANA ([facility]) ID Date Data Source [id number] 04/16/2021 02:13:00 PM EDT JOHANA ([facility]) Name Value Range Interpretation Code Description Data Larissa rce(s) Supporting Document(s) vitamin B12 level 245 pg/mL 247-911 Below low normal Vitamin B12 Level [place]OR[place]OME ([facility]) ID Date Data Source [id number] 04/16/2021 02:13:00 PM EDT [facility]) Name Value Range Interpretation Code Description Data Larissa rce(s) Supporting Document(s) iron (fe) 85 ug/dL 50-170 Iron (Fe) JOHANA ([facility]) total iron binding capacity 308 ug/dL 250-450 Total Ir on Binding Capacity JOHANA ([facility]) percent saturation 27.6 % 13.2-45.0 Percent Saturatio n [place]OR[place]OME ([facility]) ID Date Data Source [id number] 04/16/2021 02:13:00 PM EDT [facility]) Name Value Range Interpretation Code Description Data Larissa rce(s) Supporting Document(s) blood urea nitrogen 13 mg/dL 7-18 Blood Urea Nitro gen JOHANA ([facility]) glucose, fasting 86 mg/dL 70-100 Glucose, Fasting AT [facility] ([facility]) glomerular filtration rate > 60.0 >58 Glomerula r Filtration Rate JOHANA ([facility]) creatinine for GFR 0.79 mg/dL 0.55-1.30 Creatinine for GF R JOHANA ([facility]) potassium serum 3.7 mEq/L 3.5-5.1 Potassium Serum ATHE NA ([facility]) sodium level 142 mEq/L 136-145 Sodium Level JOHANA (No [facility]) anion gap 4 mEq/L 8-16 Below low normal Anion Gap JOHANA ( [facility]) carbon dioxide level 28 mEq/L 21-32 Carbon Dioxide Level JOHANA ([facility]) chloride level 110 mEq/L 98-107 Above high normal Chloride Level JOHANA ([facility]) AST/SGOT 15 U/L 7-37 AST/SGOT J[facility] ([facility]) calcium level 8.3 mg/dL 8.5-10.1 Below low normal Calcium Level AT [facility] ([facility]) alkaline phosphatase 59 U/L 45-117 Alkaline Phosph atase JOHANA ([facility]) ALT/SGPT 21 U/L 12-78 ALT/SGPT JOHANA ([facility]) bilirubin,total 0.4 mg/dL 0.2-1.0 Bilirubin,total ATHE ([facility]) albumin 3.6 gm/dL 3.2-5.2 Albumin JOHANA ([facility]) total protein 6.4 gm/dL 6.4-8.2 Total Protein JOHANA ( [facility]) albumin/globulin ratio 1.2-2.2 Albumin/globu lilian Ratio JOHANA ([facility]) ID Date Data Source [id number] 04/16/2021 02:13:00 PM EDT JOHANA ([facility]) Name Value Range Interpretation Code Description Data Larissa rce(s) Supporting Document(s) white blood count 6.0 10 4.0-10.0 White Blood Count JOHANA ([facility]) red blood count 4.24 10 4.00-5.40 Red Blood Count ATHE ([facility]) hemoglobin 12.0 g/dL 12.0-15.5 Hemoglobin JOHANA ([facility]) hematocrit 38.6 % 36.0-47.0 Hematocrit JOHANA ([facility]) mean corpuscular hemoglobin 28.3 pg 27.0-33.0 Mean Cor puscular Hemoglobin JOHANA ([facility]) mean corpuscular volume 91.0 fL 80.0-96.0 Mean Corpusc ular Volume JOHANA ([facility]) red cell distribution width 14.6 % 11.5-14.5 Above high no rmal Red Cell Distribution Width JOHANA ([facility]) mean corpuscular HGB conc 31.1 g/dL 32.0-36.5 Below low lin l Mean Corpuscular HGB Conc JOHANA ([facility]) lymph % 31.9 % 24.0-44.0 Lymph % JOHANA ([facility]) platelet count, automated 242 10 150-450 Platelet C ount, Automated JOHANA ([facility]) neutrophils % 54.8 % 36.0-66.0 Neutrophils % JOHANA ( [facility]) eos % 2.8 % 0.0-3.0 Eos % JOHANA ([facility]) mono % 9.3 % 2.0-8.0 Above high normal [place] % JOHANA ([facility]) immature granulocyte % 0.5 % 0-3.0 Immature Gran ulocyte % JOHANA ([facility]) baso % 0.7 % 0.0-1.0 Baso % JOHANA ([facility]) nucleated red blood cell % 0.0 % 0-0 Nucleated Red Blood Cell % JOHANA ([facility]) neutrophils # 3.3 10 1.5-8.5 Neutrophils # JOHANA ( [facility]) lymph # 1.9 10 1.5-5.0 Lymph # JOHANA ([facility]) mono # 0.6 10 0.0-0.8 [place] # JOHANA ([facility]) eos # 0.2 10 0.0-0.5 Eos # JOHANA ([facility]) baso # 0.0 10 0.0-0.2 Baso # JOHANA ([facility]) ID Date Data Source [id number] 03/22/2021 12:00:00 AM EDT JOHANA ([facility]) Name Value Range Interpretation Code Description Data Larissa rce(s) Supporting Document(s) Cobalamin (Vitamin B12) [Mass/volume] in Serum or Plasma 206 pg/mL 200-1100 Vitamin B12 JOHANA ([facility]) Folate [Mass/volume] in Serum or Plasma 7.1 NG/mL Folate, Serum JOHANA ([facility]) ID Date Data Source [id number] 03/22/2021 12:00:00 AM EDT JOHANA ([facility]) Name Value Range Interpretation Code Description Data Larissa rce(s) Supporting Document(s) Thyrotropin [Units/volume] in Serum or Plasma 6.92 mIU/L Above high normal Tsh FLOR[place]OME ([facility]) ID Date Data Source [id number] 03/22/2021 12:00:00 AM EDT [place] ([facility]) Name Value Range Interpretation Code Description Data Larissa rce(s) Supporting Document(s) Leukocytes [#/volume] in Blood by Automated count 6.4 thousand/uL 3 .8-10.8 White Blood Cell Count JOHANA ([facility]) Hematocrit [Volume Fraction] of Blood by Automated count 35.6 % 35.0-45.0 Hematocrit JOHANA ([facility]) Hemoglobin [Mass/volume] in Blood 12.1 g/dL 11.7-15.5 He moglobin JOHANA ([facility]) Erythrocytes [#/volume] in Blood by Automated count 4.21 million/uL 3.80-5.10 Red Blood Cell Count JOHANA ([facility]) Erythrocyte mean corpuscular volume [Entitic volume] by Auto mated count 84.6 fL 80.0-100.0 Mcv JOHANA ([facility]) Erythrocyte distribution width [Ratio] by Automated count 14.5 % 11.0-15.0 Rdw JOHANA ([facility]) Erythrocyte mean corpuscular hemoglobin concentration [Mass/volume] by Automated count 34.0 g/dL 32.0-36.0 Mchc JOHANA ([facility]) Erythrocyte mean corpuscular hemoglobin [Entitic mass] by Automated count 28.7 pg 27.0-33.0 Mch JOHANA ([facility]) Platelets [#/volume] in Blood by Automated count 289 thousand/uL 14 0-400 Platelet Count JOHANA ([facility]) Platelet mean volume [Entitic volume] in Blood by [place] 11.0 f L 7.5-12.5 Mpv JOHANA ([facility]) Lymphocytes [#/volume] in Blood by Automated count 1677 cells/uL 85 0-3900 Absolute Lymphocytes JOHANA ([facility]) Neutrophils [#/volume] in Blood by Automated count 3859 cells/uL 15 00-7800 Absolute Neutrophils JOHANA ([facility]) Neutrophils/100 leukocytes in Blood by Automated count 60.3 % 38-80 Neutrophils JOHANA ([facility]) Monocytes [#/volume] in Blood by Automated count 640 cells/uL 200-9 50 Absolute Monocytes JOHANA ([facility]) Basophils [#/volume] in Blood by Automated count 51 cells/uL 0-200 Absolute Basophils JOHANA ([facility]) Eosinophils [#/volume] in Blood by Automated count 173 cells/uL 15- 500 Absolute Eosinophils JOHANA ([facility]) Eosinophils/100 leukocytes in Blood by Automated count 2.7 % 0-8 Eosinophils JOHANA ([facility]) Monocytes/100 leukocytes in Blood by Automated count 10.0 % 0-13 Monocytes JOHANA ([facility]) Basophils/100 leukocytes in Blood by Automated count 0.8 % 0-2 Basophils JOHANA ([facility]) Lymphocytes/100 leukocytes in Blood by Automated count 26.2 % 15-49 Lymphocytes JOHANA ([facility]) ID Date Data Source [id number] 03/22/2021 12:00:00 AM EDT JOHANA ([facility]) Name Value Range Interpretation Code Description Data Larissa rce(s) Supporting Document(s) Glucose [Mass/volume] in Serum or Plasma 94 mg/dL 65-99 Glucose JOHANA ([facility]) Creatinine [Mass/volume] in Serum or Plasma 0.82 mg/dL 0.50-1.10 Creatinine JOHANA ([facility]) Urea nitrogen [Mass/volume] in Serum or Plasma 15 mg/dL 7-25 Urea Nitrogen (BUN) JOHANA ([facility]) Urea nitrogen/Creatinine [Mass Ratio] in Serum or Plasma not applic able 6-22 BUN/creatinine Ratio JOHANA ([facility]) Glomerular filtration rate/1.73 sq M.pre dicted among non-blacks [Volume Rate/Area] in Serum, Plasma or Blood by Creatinine-based formula (CKD-EPI) 90 mL/min/1.73m2 > or = 60 eGFR Non-afr. Swedish JOHANA ([facility]) Glomerular filtration rate/1.73 sq M.pre dicted among blacks [Volume Rate/Area] in Serum, Plasma or Blood by Creatinine-based formula (CKD-EPI) 104 mL/min/1.73m2 > or = 60 eGFR JOHANA ([facility]) Potassium [Moles/volume] in Serum or Plasma 3.5 mmol/L 3.5-5.3 Potassium [place]OR[place]OME ([facility]) Chloride [Moles/volume] in Serum or Plasma 106 mmol/L 98-110 Chloride JOHANA ([facility]) Sodium [Moles/volume] in Serum or Plasma 140 mmol/L 135-146 [facility] Carbon dioxide, total [Moles/volume] in Serum or Plasma 23 mmol/L 20-32 Carbon Dioxide JOHANA ([facility]) Calcium [Mass/volume] in Serum or Plasma 8.8 mg/dL 8.6-10.2 Calcium [place]OR[place]OME ([facility]) Protein [Mass/volume] in Serum or Plasma 6.5 g/dL 6.1-8.1 [facility], [facility] Albumin [Mass/volume] in Serum or Plasma 4.1 g/dL 3.6-5.1 Albumin [place]OR[place]OME ([facility]) Globulin [Mass/volume] in Serum by calculation 2.4 g/dL_(calc) 1.9- 3.7 Globulin JOHANA ([facility]) Albumin/Globulin [Mass Ratio] in Serum or Plasma 1.7 (calc) 1.0-2 .5 Albumin/globulin Ratio [facility]) Aspartate aminotransferase [Enzymatic activity/volume] in Serum or Plasma 16 U/L 10-30 [facility] Bilirubin.total [Mass/volume] in Serum or Plasma 0.5 mg/dL 0.2-1 .2 Bilirubin, Total JOHANA ([facility]) Alanine aminotransferase [Enzymatic activity/volume] in Seru m or Plasma 13 U/L 6-29 Alt JOHANA ([facility]) Alkaline phosphatase [Enzymatic activity/volume] in Serum or Plasma 63 U/L 31-125 Alkaline Phosphatase JOHANA ([facility]) ID Date Data Source [id number] 03/22/2021 12:00:00 AM EDT JOHANA ([facility]) Name Value Range Interpretation Code Description Data Larissa rce(s) Supporting Document(s) Cholesterol [Mass/volume] in Serum or Plasma 220 mg/dL <200 Above high normal Cholesterol, Total JOHANA ([facility]) Cholesterol in HDL [Mass/volume] in Serum or Plasma 43 mg/dL > or = 50 Below low normal HDL Cholesterol JOHANA ([facility]) Cholesterol in LDL [Mass/volume] in Serum or Plasma by calculation 147 mg/dL_(calc) Above high normal LDL-cholesterol JOHANA ([facility]) Triglyceride [Mass/volume] in Serum or Plasma 167 mg/dL <150 Above high normal Triglycerides JOHANA ([facility]) Cholesterol.total/Cholesterol in HDL [Mass Ratio] in Serum o r Plasma 5.1 (calc) <5.0 Above high normal Chol/hdlc Ratio JOHANA ([facility]) Cholesterol non HDL [Mass/volume] in Serum or Plasma 177 mg/dL_( calc) <130 Above high normal Non HDL Cholesterol JOHANA ([facility]) ID Date Data Source [id number] 03/22/2021 12:00:00 AM EDT JOHANA ([facility]) Name Value Range Interpretation Code Description Data Larissa rce(s) Supporting Document(s) Iron binding capacity [Mass/volume] in Serum or Plasma 319 m cg/dL_(calc) 250-450 Iron Binding Capacity JOHANA ([facility]) Iron [Mass/volume] in Serum or Plasma 79 mcg/dL 40-190 Iron, Total JOHANA ([facility]) Iron saturation [Mass Fraction] in Serum or Plasma 25 %_(calc) 16- 45 % Saturation JOHANA ([facility]) Ferritin [Mass/volume] in Serum or Plasma 38 NG/mL 16-154 Ferritin JOHANA ([facility]) ID Date Data Source [id number] 03/22/2021 12:00:00 AM EDT JOHANA ([facility]) Name Value Range Interpretation Code Description Data Larissa rce(s) Supporting Document(s) Folate [Mass/volume] in Serum or Plasma 7.1 NG/mL Folate, Serum JOHANA ([facility]) Cobalamin (Vitamin B12) [Mass/volume] in Serum or Plasma 206 pg/mL 200-1100 Vitamin B12 JOHANA ([facility]) ID Date Data Source [id number] 03/22/2021 12:00:00 AM EDT JOHANA ([facility]) Name Value Range Interpretation Code Description Data Larissa rce(s) Supporting Document(s) Thyrotropin [Units/volume] in Serum or Plasma 6.92 mIU/L Above high normal Tsh JOHANA ([facility]) ID Date Data Source [id number] 03/22/2021 12:00:00 AM EDT JOHANA ([facility]) Name Value Range Interpretation Code Description Data Larissa rce(s) Supporting Document(s) Leukocytes [#/volume] in Blood by Automated count 6.4 thousand/uL 3 .8-10.8 White Blood Cell Count JOHANA ([facility]) Erythrocytes [#/volume] in Blood by Automated count 4.21 million/uL 3.80-5.10 Red Blood Cell Count JOHANA ([facility]) Hemoglobin [Mass/volume] in Blood 12.1 g/dL 11.7-15.5 He moglobin JOHANA ([facility]) Erythrocyte mean corpuscular hemoglobin [Entitic mass] by Automated count 28.7 pg 27.0-33.0 Mch JOHANA ([facility]) Hematocrit [Volume Fraction] of Blood by Automated count 35.6 % 35.0-45.0 Hematocrit JOHANA ([facility]) Erythrocyte mean corpuscular volume [Entitic volume] by Auto mated count 84.6 fL 80.0-100.0 Mcv JOHANA ([facility]) Erythrocyte mean corpuscular hemoglobin concentration [Mass/volume] by Automated count 34.0 g/dL 32.0-36.0 Mchc JOHANA ([facility]) Platelet mean volume [Entitic volume] in Blood by Fernandez-Nnamdi 11.0 f L 7.5-12.5 Mpv JOHANA ([facility]) Platelets [#/volume] in Blood by Automated count 289 thousand/uL 14 0-400 Platelet Count JOHANA ([facility]) Erythrocyte distribution width [Ratio] by Automated count 14.5 % 11.0-15.0 Rdw JOHANA ([facility]) Lymphocytes [#/volume] in Blood by Automated count 1677 cells/uL 85 0-3900 Absolute Lymphocytes JOHANA ([facility]) Neutrophils [#/volume] in Blood by Automated count 3859 cells/uL 15 00-7800 Absolute Neutrophils JOHANA ([facility]) Monocytes [#/volume] in Blood by Automated count 640 cells/uL 200-9 50 Absolute Monocytes JOHANA ([facility]) Neutrophils/100 leukocytes in Blood by Automated count 60.3 % 38-80 Neutrophils JOHANA ([facility]) Basophils [#/volume] in Blood by Automated count 51 cells/uL 0-200 Absolute Basophils JOHANA ([facility]) Eosinophils [#/volume] in Blood by Automated count 173 cells/uL 15- 500 Absolute Eosinophils JOHANA ([facility]) Lymphocytes/100 leukocytes in Blood by Automated count 26.2 % 15-49 Lymphocytes JOHANA ([facility]) Eosinophils/100 leukocytes in Blood by Automated count 2.7 % 0-8 Eosinophils JOHANA ([facility]) Monocytes/100 leukocytes in Blood by Automated count 10.0 % 0-13 Monocytes JOHANA ([facility]) Basophils/100 leukocytes in Blood by Automated count 0.8 % 0-2 Basophils JOHANA ([facility]) ID Date Data Source [id number] 03/22/2021 12:00:00 AM EDT [place]OR[place]OME ([facility]) Name Value Range Interpretation Code Description Data Larissa rce(s) Supporting Document(s) Glucose [Mass/volume] in Serum or Plasma 94 mg/dL 65-99 Glucose JOHANA ([facility]) Glomerular filtration rate/1.73 sq M.pre dicted among non-blacks [Volume Rate/Area] in Serum, Plasma or Blood by Creatinine-based formula (CKD-EPI) 90 mL/min/1.73m2 > or = 60 eGFR Non-afr. Swedish JOHANA ([facility]) Creatinine [Mass/volume] in Serum or Plasma 0.82 mg/dL 0.50-1.10 Creatinine JOHANA ([facility]) Urea nitrogen [Mass/volume] in Serum or Plasma 15 mg/dL 7-25 Urea Nitrogen (BUN) JOHANA ([facility]) Urea nitrogen/Creatinine [Mass Ratio] in Serum or Plasma not applic able 6-22 BUN/creatinine Ratio FLORAHOME ([facility]) Glomerular filtration rate/1.73 sq M.pre dicted among blacks [Volume Rate/Area] in Serum, Plasma or Blood by Creatinine-based formula (CKD-EPI) 104 mL/min/1.73m2 > or = 60 eGFR JOHANA ([facility]) Sodium [Moles/volume] in Serum or Plasma 140 mmol/L 135-146 Sodium JOHANA ([facility]) Potassium [Moles/volume] in Serum or Plasma 3.5 mmol/L 3.5-5.3 Potassium JOHANA ([facility]) Chloride [Moles/volume] in Serum or Plasma 106 mmol/L 98-110 Chloride JOHANA ([facility]) Calcium [Mass/volume] in Serum or Plasma 8.8 mg/dL 8.6-10.2 Calcium JOHANA ([facility]) Carbon dioxide, total [Moles/volume] in Serum or Plasma 23 mmol/L 20-32 Carbon Dioxide JOHANA ([facility]) Protein [Mass/volume] in Serum or Plasma 6.5 g/dL 6.1-8.1 Protein, Total JOHANA ([facility]) Albumin/Globulin [Mass Ratio] in Serum or Plasma 1.7 (calc) 1.0-2 .5 Albumin/globulin Ratio JOHANA ([facility]) Globulin [Mass/volume] in Serum by calculation 2.4 g/dL_(calc) 1.9- 3.7 Globulin JOHANA ([facility]) Albumin [Mass/volume] in Serum or Plasma 4.1 g/dL 3.6-5.1 Albumin JOHANA ([facility]) Bilirubin.total [Mass/volume] in Serum or Plasma 0.5 mg/dL 0.2-1 .2 Bilirubin, Total JOHANA ([facility]) Aspartate aminotransferase [Enzymatic activity/volume] in Serum or Plasma 16 U/L 10-30 Ast JOHANA ([facility]) Alkaline phosphatase [Enzymatic activity/volume] in Serum or Plasma 63 U/L 31-125 Alkaline Phosphatase JOHANA ([facility]) Alanine aminotransferase [Enzymatic activity/volume] in Seru m or Plasma 13 U/L 6-29 Alt JOHANA ([facility]) ID Date Data Source [id number] 03/22/2021 12:00:00 AM EDT FLOR[place]OME ([facility]) Name Value Range Interpretation Code Description Data Larissa rce(s) Supporting Document(s) Cholesterol [Mass/volume] in Serum or Plasma 220 mg/dL <200 Above high normal Cholesterol, Total JOHANA ([facility]) Cholesterol in HDL [Mass/volume] in Serum or Plasma 43 mg/dL > or = 50 Below low normal HDL Cholesterol JOHANA ([facility]) Cholesterol.total/Cholesterol in HDL [Mass Ratio] in Serum o r Plasma 5.1 (calc) <5.0 Above high normal Chol/hdlc Ratio JOHANA ([facility]) Cholesterol in LDL [Mass/volume] in Serum or Plasma by calculation 147 mg/dL_(calc) Above high normal LDL-cholesterol JOHANA ([facility]) Triglyceride [Mass/volume] in Serum or Plasma 167 mg/dL <150 Above high normal Triglycerides JOHANA ([facility]) Cholesterol non HDL [Mass/volume] in Serum or Plasma 177 mg/dL_( calc) <130 Above high normal Non HDL Cholesterol JOHANA ([facility]) ID Date Data Source [id number] 03/22/2021 12:00:00 [facility] Name Value Range Interpretation Code Description Data Larissa rce(s) Supporting Document(s) Iron [Mass/volume] in Serum or Plasma 79 mcg/dL 40-190 Iron, Total JOHANA ([facility]) Iron binding capacity [Mass/volume] in Serum or Plasma 319 m cg/dL_(calc) 250-450 Iron Binding Capacity JOHANA ([facility]) Iron saturation [Mass Fraction] in Serum or Plasma 25 %_(calc) 16- 45 % Saturation JOHANA ([facility]) Ferritin [Mass/volume] in Serum or Plasma 38 NG/mL 16-154 Ferritin JOHANA ([facility]) ID Date Data Source [id number] 03/22/2021 12:00:00 AM EDT JOHANA ([facility]) Name Value Range Interpretation Code Description Data Larissa rce(s) Supporting Document(s) Folate [Mass/volume] in Serum or Plasma 7.1 NG/mL Folate, Serum JOHANA ([facility]) Cobalamin (Vitamin B12) [Mass/volume] in Serum or Plasma 206 pg/mL 200-1100 Vitamin B12 JOHANA ([facility]) ID Date Data Source [id number] 03/22/2021 12:00:00 AM EDT JOHANA ([facility]) Name Value Range Interpretation Code Description Data Larissa rce(s) Supporting Document(s) Thyrotropin [Units/volume] in Serum or Plasma 6.92 mIU/L Above high normal [facility] ID Date Data Source [id number] 03/22/2021 12:00:00 AM [facility] Name Value Range Interpretation Code Description Data Larissa rce(s) Supporting Document(s) Leukocytes [#/volume] in Blood by Automated count 6.4 thousand/uL 3 .8-10.8 White Blood Cell Count JOHANA ([facility]) Hemoglobin [Mass/volume] in Blood 12.1 g/dL 11.7-15.5 He moglobin JOHANA ([facility]) Erythrocytes [#/volume] in Blood by Automated count 4.21 million/uL 3.80-5.10 Red Blood Cell Count JOHANA ([facility]) Erythrocyte mean corpuscular volume [Entitic volume] by Auto mated count 84.6 fL 80.0-100.0 Mcv JOHANA ([facility]) Erythrocyte mean corpuscular hemoglobin [Entitic mass] by Automated count 28.7 pg 27.0-33.0 Mch JOHANA ([facility]) Hematocrit [Volume Fraction] of Blood by Automated count 35.6 % 35.0-45.0 Hematocrit JOHANA ([facility]) Erythrocyte mean corpuscular hemoglobin concentration [Mass/volume] by Automated count 34.0 g/dL 32.0-36.0 Mchc JOHANA ([facility]) Platelets [#/volume] in Blood by Automated count 289 thousand/uL 14 0-400 Platelet Count JOHANA ([facility]) Erythrocyte distribution width [Ratio] by Automated count 14.5 % 11.0-15.0 Rdw JOHANA ([facility]) Lymphocytes [#/volume] in Blood by Automated count 1677 cells/uL 85 0-3900 Absolute Lymphocytes JOHANA ([facility]) Neutrophils [#/volume] in Blood by Automated count 3859 cells/uL 15 00-7800 Absolute Neutrophils JOHANA ([facility]) Platelet mean volume [Entitic volume] in Blood by [place] 11.0 f L 7.5-12.5 Mpv JOHANA ([facility]) Monocytes [#/volume] in Blood by Automated count 640 cells/uL 200-9 50 Absolute Monocytes JOHANA ([facility]) Eosinophils [#/volume] in Blood by Automated count 173 cells/uL 15- 500 Absolute Eosinophils JOHANA ([facility]) Lymphocytes/100 leukocytes in Blood by Automated count 26.2 % 15-49 Lymphocytes JOHANA ([facility]) Neutrophils/100 leukocytes in Blood by Automated count 60.3 % 38-80 Neutrophils FLOR[place]OME ([facility]) Basophils [#/volume] in Blood by Automated count 51 cells/uL 0-200 Absolute Basophils JOHANA ([facility]) Basophils/100 leukocytes in Blood by Automated count 0.8 % 0-2 Basophils JOHANA ([facility]) Eosinophils/100 leukocytes in Blood by Automated count 2.7 % 0-8 Eosinophils FLOR[place]OME ([facility]) Monocytes/100 leukocytes in Blood by Automated count 10.0 % 0-13 Monocytes [place]OME ([facility]) ID Date Data Source [id number] 03/22/2021 12:00:00 AM EDT [facility]) Name Value Range Interpretation Code Description Data Larissa rce(s) Supporting Document(s) Glucose [Mass/volume] in Serum or Plasma 94 mg/dL 65-99 Glucose [facility]) Glomerular filtration rate/1.73 sq M.pre dicted among non-blacks [Volume Rate/Area] in Serum, Plasma or Blood by Creatinine-based formula (CKD-EPI) 90 mL/min/1.73m2 > or = 60 eGFR Non-afr. Swedish JOHANA ([facility]) Urea nitrogen [Mass/volume] in Serum or Plasma 15 mg/dL 7-25 Urea Nitrogen (BUN) FLORAHOME ([facility]) Creatinine [Mass/volume] in Serum or Plasma 0.82 mg/dL 0.50-1.10 Creatinine FL[place]AHOME ([facility]) Glomerular filtration rate/1.73 sq M.pre dicted among blacks [Volume Rate/Area] in Serum, Plasma or Blood by Creatinine-based formula (CKD-EPI) 104 mL/min/1.73m2 > or = 60 eGFR JOHANA ([facility]) Sodium [Moles/volume] in Serum or Plasma 140 mmol/L 135-146 Sodium JOHANA ([facility]) Urea nitrogen/Creatinine [Mass Ratio] in Serum or Plasma not applic able 6-22 BUN/creatinine Ratio FLORAHOME ([facility]) Potassium [Moles/volume] in Serum or Plasma 3.5 mmol/L 3.5-5.3 Potassium JOHANA ([facility]) Chloride [Moles/volume] in Serum or Plasma 106 mmol/L 98-110 Chloride JOHANA ([facility]) Carbon dioxide, total [Moles/volume] in Serum or Plasma 23 mmol/L 20-32 Carbon Dioxide JOHANA ([facility]) Protein [Mass/volume] in Serum or Plasma 6.5 g/dL 6.1-8.1 Protein, Total JOHANA ([facility]) Albumin [Mass/volume] in Serum or Plasma 4.1 g/dL 3.6-5.1 Albumin FLOR[place]OME ([facility]) Calcium [Mass/volume] in Serum or Plasma 8.8 mg/dL 8.6-10.2 Calcium FLORAHOME ([facility]) Albumin/Globulin [Mass Ratio] in Serum or Plasma 1.7 (calc) 1.0-2 .5 Albumin/globulin Ratio FL[place]OME ([facility]) Bilirubin.total [Mass/volume] in Serum or Plasma 0.5 mg/dL 0.2-1 .2 Bilirubin, Total FL[place]OME ([facility]) Globulin [Mass/volume] in Serum by calculation 2.4 g/dL_(calc) 1.9- 3.7 Globulin FL[place]OME ([facility]) Aspartate aminotransferase [Enzymatic activity/volume] in Serum or Plasma 16 U/L 10-30 Ast JOHANA ([facility]) Alanine aminotransferase [Enzymatic activity/volume] in Seru m or Plasma 13 U/L 6-29 Alt JOHANA ([facility]) Alkaline phosphatase [Enzymatic activity/volume] in Serum or Plasma 63 U/L 31-125 Alkaline Phosphatase JOHANA ([facility]) ID Date Data Source [id number] 03/22/2021 12:00:00 AM EDT [place]OME ([facility]) Name Value Range Interpretation Code Description Data Larissa rce(s) Supporting Document(s) Cholesterol [Mass/volume] in Serum or Plasma 220 mg/dL <200 Above high normal Cholesterol, Total FLOR[place]OME ([facility]) Cholesterol in HDL [Mass/volume] in Serum or Plasma 43 mg/dL > or = 50 Below low normal HDL Cholesterol JOHANA ([facility]) Triglyceride [Mass/volume] in Serum or Plasma 167 mg/dL <150 Above high normal Triglycerides JOHANA ([facility]) Cholesterol.total/Cholesterol in HDL [Mass Ratio] in Serum o r Plasma 5.1 (calc) <5.0 Above high normal Chol/hdlc Ratio JOHANA ([facility]) Cholesterol in LDL [Mass/volume] in Serum or Plasma by calculation 147 mg/dL_(calc) Above high normal LDL-cholesterol JOHANA ([facility]) Cholesterol non HDL [Mass/volume] in Serum or Plasma 177 mg/dL_( calc) <130 Above high normal Non HDL Cholesterol JOHANA ([facility]) ID Date Data Source [id number] 03/22/2021 12:00:00 AM EDT JOHANA ([facility]) Name Value Range Interpretation Code Description Data Larissa rce(s) Supporting Document(s) Iron binding capacity [Mass/volume] in Serum or Plasma 319 m cg/dL_(calc) 250-450 Iron Binding Capacity JOHANA ([facility]) Iron [Mass/volume] in Serum or Plasma 79 mcg/dL 40-190 Iron, Total JOHANA ([facility]) Iron saturation [Mass Fraction] in Serum or Plasma 25 %_(calc) 16- 45 % Saturation JOHANA ([facility]) Ferritin [Mass/volume] in Serum or Plasma 38 NG/mL 16-154 Ferritin JOHANA ([facility]) ID Date Data Source [id number] 03/22/2021 12:00:00 [facility] Name Value Range Interpretation Code Description Data Larissa rce(s) Supporting Document(s) Cobalamin (Vitamin B12) [Mass/volume] in Serum or Plasma 206 pg/mL 200-1100 Vitamin B12 JOHANA ([facility]) Folate [Mass/volume] in Serum or Plasma 7.1 NG/mL Folate, Serum JOHANA ([facility]) ID Date Data Source [id number] 03/22/2021 12:00:00 AM EDT JOHANA ([facility]) Name Value Range Interpretation Code Description Data Larissa rce(s) Supporting Document(s) Thyrotropin [Units/volume] in Serum or Plasma 6.92 mIU/L Above high normal Tsh [facility] [facility]) ID Date Data Source [id number] 03/22/2021 12:00:00 AM EDT JOHANA ([facility]) Name Value Range Interpretation Code Description Data Larissa rce(s) Supporting Document(s) Hematocrit [Volume Fraction] of Blood by Automated count 35.6 % 35.0-45.0 Hematocrit FLORAHOME ([facility]) Leukocytes [#/volume] in Blood by Automated count 6.4 thousand/uL 3 .8-10.8 White Blood Cell Count JOHANA ([facility]) Hemoglobin [Mass/volume] in Blood 12.1 g/dL 11.7-15.5 He moglobin JOHANA ([facility]) Erythrocytes [#/volume] in Blood by Automated count 4.21 million/uL 3.80-5.10 Red Blood Cell Count JOHANA ([facility]) Erythrocyte mean corpuscular volume [Entitic volume] by Auto mated count 84.6 fL 80.0-100.0 Mcv JOHANA ([facility]) Erythrocyte mean corpuscular hemoglobin concentration [Mass/volume] by Automated count 34.0 g/dL 32.0-36.0 Mchc JOHANA ([facility]) Erythrocyte mean corpuscular hemoglobin [Entitic mass] by Automated count 28.7 pg 27.0-33.0 Mch FLORAHOME ([facility]) Erythrocyte distribution width [Ratio] by Automated count 14.5 % 11.0-15.0 Rdw JOHANA ([facility]) Platelets [#/volume] in Blood by Automated count 289 thousand/uL 14 0-400 Platelet Count JOHANA ([facility]) Neutrophils [#/volume] in Blood by Automated count 3859 cells/uL 15 00-7800 Absolute Neutrophils JOHANA ([facility]) Platelet mean volume [Entitic volume] in Blood by [place] 11.0 f L 7.5-12.5 Mpv JOHANA ([facility]) Lymphocytes [#/volume] in Blood by Automated count 1677 cells/uL 85 0-3900 Absolute Lymphocytes JOHANA ([facility]) Monocytes [#/volume] in Blood by Automated count 640 cells/uL 200-9 50 Absolute Monocytes JOHANA ([facility]) Eosinophils [#/volume] in Blood by Automated count 173 cells/uL 15- 500 Absolute Eosinophils JOHANA ([facility]) Lymphocytes/100 leukocytes in Blood by Automated count 26.2 % 15-49 Lymphocytes JOHANA ([facility]) Basophils [#/volume] in Blood by Automated count 51 cells/uL 0-200 Absolute Basophils JOHANA ([facility]) Neutrophils/100 leukocytes in Blood by Automated count 60.3 % 38-80 Neutrophils JOHANA ([facility]) Eosinophils/100 leukocytes in Blood by Automated count 2.7 % 0-8 Eosinophils JOHANA ([facility]) Basophils/100 leukocytes in Blood by Automated count 0.8 % 0-2 Basophils JOHANA ([facility]) Monocytes/100 leukocytes in Blood by Automated count 10.0 % 0-13 Monocytes JOHANA ([facility]) ID Date Data Source [id number] 03/22/2021 12:00:00 AM EDT JOHANA ([facility]) Name Value Range Interpretation Code Description Data Larissa rce(s) Supporting Document(s) Glucose [Mass/volume] in Serum or Plasma 94 mg/dL 65-99 Glucose JOHANA ([facility]) Creatinine [Mass/volume] in Serum or Plasma 0.82 mg/dL 0.50-1.10 Creatinine JOHANA ([facility]) Urea nitrogen [Mass/volume] in Serum or Plasma 15 mg/dL 7-25 Urea Nitrogen (BUN) JOHANA ([facility]) Glomerular filtration rate/1.73 sq M.pre dicted among blacks [Volume Rate/Area] in Serum, Plasma or Blood by Creatinine-based formula (CKD-EPI) 104 mL/min/1.73m2 > or = 60 eGFR JOHANA ([facility]) Glomerular filtration rate/1.73 sq M.pre dicted among non-blacks [Volume Rate/Area] in Serum, Plasma or Blood by Creatinine-based formula (CKD-EPI) 90 mL/min/1.73m2 > or = 60 eGFR Non-afr. Swedish JOHANA ([facility]) Urea nitrogen/Creatinine [Mass Ratio] in Serum or Plasma not applic able 6-22 BUN/creatinine Ratio JOHANA ([facility]) Potassium [Moles/volume] in Serum or Plasma 3.5 mmol/L 3.5-5.3 Potassium JOHANA ([facility]) Sodium [Moles/volume] in Serum or Plasma 140 mmol/L 135-146 Sodium FLORAHOME ([facility]) Chloride [Moles/volume] in Serum or Plasma 106 mmol/L 98-110 Chloride FL[place]OME ([facility]) Carbon dioxide, total [Moles/volume] in Serum or Plasma 23 mmol/L 20-32 Carbon Dioxide FLOR[place]OME ([facility]) Calcium [Mass/volume] in Serum or Plasma 8.8 mg/dL 8.6-10.2 Calcium FLOR[place]OME ([facility]) Globulin [Mass/volume] in Serum by calculation 2.4 g/dL_(calc) 1.9- 3.7 Globulin FLOR[place]OME ([facility]) Protein [Mass/volume] in Serum or Plasma 6.5 g/dL 6.1-8.1 Protein, Total JOHANA ([facility]) Albumin [Mass/volume] in Serum or Plasma 4.1 g/dL 3.6-5.1 Albumin FLORAHOME ([facility]) Albumin/Globulin [Mass Ratio] in Serum or Plasma 1.7 (calc) 1.0-2 .5 Albumin/globulin Ratio FLOR[place]OME ([facility]) Alkaline phosphatase [Enzymatic activity/volume] in Serum or Plasma 63 U/L 31-125 Alkaline Phosphatase [place]OR[place]OME ([facility]) Bilirubin.total [Mass/volume] in Serum or Plasma 0.5 mg/dL 0.2-1 .2 Bilirubin, Total JOHANA ([facility]) Alanine aminotransferase [Enzymatic activity/volume] in Seru m or Plasma 13 U/L 6-29 Alt JOHANA ([facility]) Aspartate aminotransferase [Enzymatic activity/volume] in Serum or Plasma 16 U/L 10-30 Ast JOHANA ([facility]) ID Date Data Source [id number] 03/22/2021 12:00:00 AM EDT JOHANA ([facility]) Name Value Range Interpretation Code Description Data Larissa rce(s) Supporting Document(s) Cholesterol [Mass/volume] in Serum or Plasma 220 mg/dL <200 Above high normal Cholesterol, Total JOHANA ([facility]) Cholesterol in LDL [Mass/volume] in Serum or Plasma by calculation 147 mg/dL_(calc) Above high normal LDL-cholesterol JOHANA ([facility]) Triglyceride [Mass/volume] in Serum or Plasma 167 mg/dL <150 Above high normal Triglycerides JOHANA ([facility]) Cholesterol in HDL [Mass/volume] in Serum or Plasma 43 mg/dL > or = 50 Below low normal HDL Cholesterol JOHANA ([facility]) Cholesterol.total/Cholesterol in HDL [Mass Ratio] in Serum o r Plasma 5.1 (calc) <5.0 Above high normal Chol/hdlc Ratio JOHANA ([facility]) Cholesterol non HDL [Mass/volume] in Serum or Plasma 177 mg/dL_( calc) <130 Above high normal Non HDL Cholesterol JOHANA ([facility]) ID Date Data Source [id number] 03/22/2021 12:00:00 AM EDT JOHANA ([facility]) Name Value Range Interpretation Code Description Data Larissa rce(s) Supporting Document(s) Iron [Mass/volume] in Serum or Plasma 79 mcg/dL 40-190 Iron, Total JOHANA ([facility]) Iron binding capacity [Mass/volume] in Serum or Plasma 319 m cg/dL_(calc) 250-450 Iron Binding Capacity JOHANA ([facility]) Iron saturation [Mass Fraction] in Serum or Plasma 25 %_(calc) 16- 45 % Saturation JOHANA ([facility]) Ferritin [Mass/volume] in Serum or Plasma 38 NG/mL 16-154 Ferritin JOHANA ([facility]) ID Date Data Source [id number] 03/22/2021 12:00:00 AM EDT JOHANA ([facility]) Name Value Range Interpretation Code Description Data Larissa rce(s) Supporting Document(s) Cobalamin (Vitamin B12) [Mass/volume] in Serum or Plasma 206 pg/mL 200-1100 Vitamin B12 JOHANA ([facility]) Folate [Mass/volume] in Serum or Plasma 7.1 NG/mL Folate, Serum FLORAHOME ([facility]) ID Date Data Source [id number] 03/22/2021 12:00:00 AM EDT JOHANA ([facility]) Name Value Range Interpretation Code Description Data Larissa rce(s) Supporting Document(s) Thyrotropin [Units/volume] in Serum or Plasma 6.92 mIU/L Above high normal Tsh FLORAHOME ([facility]) ID Date Data Source [id number] 03/22/2021 12:00:00 AM EDT [facility]) Name Value Range Interpretation Code Description Data Larissa rce(s) Supporting Document(s) Leukocytes [#/volume] in Blood by Automated count 6.4 thousand/uL 3 .8-10.8 White Blood Cell Count JOHANA ([facility]) Erythrocytes [#/volume] in Blood by Automated count 4.21 million/uL 3.80-5.10 Red Blood Cell Count JOHANA ([facility]) Hematocrit [Volume Fraction] of Blood by Automated count 35.6 % 35.0-45.0 Hematocrit JOHANA ([facility]) Hemoglobin [Mass/volume] in Blood 12.1 g/dL 11.7-15.5 He moglobin JOHANA ([facility]) Erythrocyte mean corpuscular volume [Entitic volume] by Auto mated count 84.6 fL 80.0-100.0 Mcv JOHANA ([facility]) Platelet mean volume [Entitic volume] in Blood by [place] 11.0 f L 7.5-12.5 Mpv JOHANA ([facility]) Platelets [#/volume] in Blood by Automated count 289 thousand/uL 14 0-400 Platelet Count JOHANA ([facility]) Erythrocyte mean corpuscular hemoglobin [Entitic mass] by Automated count 28.7 pg 27.0-33.0 Mch JOHANA ([facility]) Erythrocyte distribution width [Ratio] by Automated count 14.5 % 11.0-15.0 Rdw JOHANA ([facility]) Erythrocyte mean corpuscular hemoglobin concentration [Mass/volume] by Automated count 34.0 g/dL 32.0-36.0 Mchc JOHANA ([facility]) Monocytes [#/volume] in Blood by Automated count 640 cells/uL 200-9 50 Absolute Monocytes JOHANA ([facility]) Lymphocytes [#/volume] in Blood by Automated count 1677 cells/uL 85 0-3900 Absolute Lymphocytes JOHANA ([facility]) Neutrophils [#/volume] in Blood by Automated count 3859 cells/uL 15 00-7800 Absolute Neutrophils JOHANA ([facility]) Basophils [#/volume] in Blood by Automated count 51 cells/uL 0-200 Absolute Basophils JOHANA ([facility]) Eosinophils [#/volume] in Blood by Automated count 173 cells/uL 15- 500 Absolute Eosinophils JOHANA ([facility]) Monocytes/100 leukocytes in Blood by Automated count 10.0 % 0-13 Monocytes JOHANA ([facility]) Lymphocytes/100 leukocytes in Blood by Automated count 26.2 % 15-49 Lymphocytes JOHANA ([facility]) Neutrophils/100 leukocytes in Blood by Automated count 60.3 % 38-80 Neutrophils JOHANA ([facility]) Eosinophils/100 leukocytes in Blood by Automated count 2.7 % 0-8 Eosinophils JOHANA ([facility]) Basophils/100 leukocytes in Blood by Automated count 0.8 % 0-2 Basophils JOHANA ([facility]) ID Date Data Source [id number] 03/22/2021 12:00:00 AM EDT FLOR[place]OME ([facility]) Name Value Range Interpretation Code Description Data Larissa rce(s) Supporting Document(s) Urea nitrogen [Mass/volume] in Serum or Plasma 15 mg/dL 7-25 Urea Nitrogen (BUN) JOHANA ([facility]) Creatinine [Mass/volume] in Serum or Plasma 0.82 mg/dL 0.50-1.10 Creatinine JOHANA ([facility]) Glomerular filtration rate/1.73 sq M.pre dicted among non-blacks [Volume Rate/Area] in Serum, Plasma or Blood by Creatinine-based formula (CKD-EPI) 90 mL/min/1.73m2 > or = 60 eGFR Non-afr. Swedish JOHANA ([facility]) Glucose [Mass/volume] in Serum or Plasma 94 mg/dL 65-99 Glucose FLORAHOME ([facility]) Urea nitrogen/Creatinine [Mass Ratio] in Serum or Plasma not applic able 6-22 BUN/creatinine Ratio JOHANA ([facility]) Glomerular filtration rate/1.73 sq M.pre dicted among blacks [Volume Rate/Area] in Serum, Plasma or Blood by Creatinine-based formula (CKD-EPI) 104 mL/min/1.73m2 > or = 60 eGFR JOHANA ([facility]) Potassium [Moles/volume] in Serum or Plasma 3.5 mmol/L 3.5-5.3 Potassium JOHANA ([facility]) Sodium [Moles/volume] in Serum or Plasma 140 mmol/L 135-146 Sodium JOHANA ([facility]) Chloride [Moles/volume] in Serum or Plasma 106 mmol/L 98-110 Chloride [facility]) Carbon dioxide, total [Moles/volume] in Serum or Plasma 23 mmol/L 20-32 Carbon Dioxide JOHANA ([facility]) Globulin [Mass/volume] in Serum by calculation 2.4 g/dL_(calc) 1.9- 3.7 Globulin FLORAHOME ([facility]) Albumin [Mass/volume] in Serum or Plasma 4.1 g/dL 3.6-5.1 Albumin FLORAHOME ([facility]) Protein [Mass/volume] in Serum or Plasma 6.5 g/dL 6.1-8.1 Protein, Total JOHANA ([facility]) Calcium [Mass/volume] in Serum or Plasma 8.8 mg/dL 8.6-10.2 Calcium JOHANA ([facility]) Alkaline phosphatase [Enzymatic activity/volume] in Serum or Plasma 63 U/L 31-125 Alkaline Phosphatase JOHANA ([facility]) Bilirubin.total [Mass/volume] in Serum or Plasma 0.5 mg/dL 0.2-1 .2 Bilirubin, Total JOHANA ([facility]) Aspartate aminotransferase [Enzymatic activity/volume] in Serum or Plasma 16 U/L 10-30 Ast JOHANA ([facility]) Albumin/Globulin [Mass Ratio] in Serum or Plasma 1.7 (calc) 1.0-2 .5 Albumin/globulin Ratio JOHANA ([facility]) Alanine aminotransferase [Enzymatic activity/volume] in Seru m or Plasma 13 U/L 6-29 Alt JOHANA ([facility]) ID Date Data Source [id number] 03/22/2021 12:00:00 AM EDT JOHANA ([facility]) Name Value Range Interpretation Code Description Data Larissa rce(s) Supporting Document(s) Cholesterol [Mass/volume] in Serum or Plasma 220 mg/dL <200 Above high normal Cholesterol, Total JOHANA ([facility]) Cholesterol in HDL [Mass/volume] in Serum or Plasma 43 mg/dL > or = 50 Below low normal HDL Cholesterol JOHANA ([facility]) Cholesterol non HDL [Mass/volume] in Serum or Plasma 177 mg/dL_( calc) <130 Above high normal Non HDL Cholesterol JOHANA ([facility]) Cholesterol.total/Cholesterol in HDL [Mass Ratio] in Serum o r Plasma 5.1 (calc) <5.0 Above high normal Chol/hdlc Ratio JOHANA ([facility]) Cholesterol in LDL [Mass/volume] in Serum or Plasma by calculation 147 mg/dL_(calc) Above high normal LDL-cholesterol JOHANA ([facility]) Triglyceride [Mass/volume] in Serum or Plasma 167 mg/dL <150 Above high normal Triglycerides JOHANA ([facility]) ID Date Data Source [id number] 03/22/2021 12:00:00 AM EDT JOHANA ([facility]) Name Value Range Interpretation Code Description Data Larissa rce(s) Supporting Document(s) Iron [Mass/volume] in Serum or Plasma 79 mcg/dL 40-190 Iron, Total JOHANA ([facility]) Iron binding capacity [Mass/volume] in Serum or Plasma 319 m cg/dL_(calc) 250-450 Iron Binding Capacity JOHANA ([facility]) Iron saturation [Mass Fraction] in Serum or Plasma 25 %_(calc) 16- 45 % Saturation JOHANA ([facility]) Ferritin [Mass/volume] in Serum or Plasma 38 NG/mL 16-154 Ferritin JOHANA ([facility]) ID Date Data Source [id number] 03/22/2021 12:00:00 [facility] Name Value Range Interpretation Code Description Data Larissa rce(s) Supporting Document(s) Folate [Mass/volume] in Serum or Plasma 7.1 NG/mL Folate, Serum JOHANA ([facility]) Cobalamin (Vitamin B12) [Mass/volume] in Serum or Plasma 206 pg/mL 200-1100 Vitamin B12 JOHANA ([facility]) ID Date Data Source [id number] 03/22/2021 12:00:00 AM EDT JOHANA ([facility]) Name Value Range Interpretation Code Description Data Larissa rce(s) Supporting Document(s) Thyrotropin [Units/volume] in Serum or Plasma 6.92 mIU/L Above high normal Tsh JOHANA ([facility]) ID Date Data Source [id number] 03/22/2021 12:00:00 [facility] Name Value Range Interpretation Code Description Data Larissa rce(s) Supporting Document(s) Hemoglobin [Mass/volume] in Blood 12.1 g/dL 11.7-15.5 He stacybin JOHANA ([facility]) Leukocytes [#/volume] in Blood by Automated count 6.4 thousand/uL 3 .8-10.8 White Blood Cell Count JOHANA ([facility]) Erythrocytes [#/volume] in Blood by Automated count 4.21 million/uL 3.80-5.10 Red Blood Cell Count JOHANA ([facility]) Hematocrit [Volume Fraction] of Blood by Automated count 35.6 % 35.0-45.0 Hematocrit JOHANA ([facility]) Erythrocyte mean corpuscular hemoglobin concentration [Mass/volume] by Automated count 34.0 g/dL 32.0-36.0 Mchc JOHANA ([facility]) Erythrocyte mean corpuscular volume [Entitic volume] by Auto mated count 84.6 fL 80.0-100.0 Mcv JOHANA ([facility]) Erythrocyte mean corpuscular hemoglobin [Entitic mass] by Automated count 28.7 pg 27.0-33.0 Mch JOHANA ([facility]) Lymphocytes [#/volume] in Blood by Automated count 1677 cells/uL 85 0-3900 Absolute Lymphocytes JOHANA ([facility]) Platelet mean volume [Entitic volume] in Blood by [place] 11.0 f L 7.5-12.5 Mpv JOHANA ([facility]) Platelets [#/volume] in Blood by Automated count 289 thousand/uL 14 0-400 Platelet Count JOHANA ([facility]) Neutrophils [#/volume] in Blood by Automated count 3859 cells/uL 15 00-7800 Absolute Neutrophils JOHANA ([facility]) Erythrocyte distribution width [Ratio] by Automated count 14.5 % 11.0-15.0 Rdw JOHANA ([facility]) Lymphocytes/100 leukocytes in Blood by Automated count 26.2 % 15-49 Lymphocytes JOHANA ([facility]) Neutrophils/100 leukocytes in Blood by Automated count 60.3 % 38-80 Neutrophils JOHANA ([facility]) Basophils [#/volume] in Blood by Automated count 51 cells/uL 0-200 Absolute Basophils JOHANA ([facility]) Monocytes [#/volume] in Blood by Automated count 640 cells/uL 200-9 50 Absolute Monocytes JOHAAN ([facility]) Eosinophils [#/volume] in Blood by Automated count 173 cells/uL 15- 500 Absolute Eosinophils JOHANA ([facility]) Monocytes/100 leukocytes in Blood by Automated count 10.0 % 0-13 Monocytes JOHANA ([facility]) Basophils/100 leukocytes in Blood by Automated count 0.8 % 0-2 Basophils JOHANA ([facility]) Eosinophils/100 leukocytes in Blood by Automated count 2.7 % 0-8 Eosinophils JOHANA ([facility]) ID Date Data Source [id number] 03/22/2021 12:00:00 AM EDT FLOR[place]OME ([facility]) Name Value Range Interpretation Code Description Data Larissa rce(s) Supporting Document(s) Glomerular filtration rate/1.73 sq M.pre dicted among non-blacks [Volume Rate/Area] in Serum, Plasma or Blood by Creatinine-based formula (CKD-EPI) 90 mL/min/1.73m2 > or = 60 eGFR Non-afr. Swedish JOHANA ([facility]) Glucose [Mass/volume] in Serum or Plasma 94 mg/dL 65-99 Glucose FLORAHOME ([facility]) Urea nitrogen [Mass/volume] in Serum or Plasma 15 mg/dL 7-25 Urea Nitrogen (BUN) [facility]) Creatinine [Mass/volume] in Serum or Plasma 0.82 mg/dL 0.50-1.10 [facility] Potassium [Moles/volume] in Serum or Plasma 3.5 mmol/L 3.5-5.3 Potassium JOHANA ([facility]) Sodium [Moles/volume] in Serum or Plasma 140 mmol/L 135-146 [facility] Glomerular filtration rate/1.73 sq M.pre dicted among blacks [Volume Rate/Area] in Serum, Plasma or Blood by Creatinine-based formula (CKD-EPI) 104 mL/min/1.73m2 > or = 60 eGFR JOHANA ([facility]) Urea nitrogen/Creatinine [Mass Ratio] in Serum or Plasma not applic able 6-22 BUN/creatinine Ratio JOHANA ([facility]) Calcium [Mass/volume] in Serum or Plasma 8.8 mg/dL 8.6-10.2 Calcium JOHANA ([facility]) Carbon dioxide, total [Moles/volume] in Serum or Plasma 23 mmol/L 20-32 Carbon Dioxide JOHANA ([facility]) Protein [Mass/volume] in Serum or Plasma 6.5 g/dL 6.1-8.1 Protein, Total JOHANA ([facility]) Chloride [Moles/volume] in Serum or Plasma 106 mmol/L 98-110 Chloride JOHANA ([facility]) Alkaline phosphatase [Enzymatic activity/volume] in Serum or Plasma 63 U/L 31-125 Alkaline Phosphatase FLOR[place]OME ([facility]) Globulin [Mass/volume] in Serum by calculation 2.4 g/dL_(calc) 1.9- 3.7 Globulin FLOR[place]OME ([facility]) Albumin [Mass/volume] in Serum or Plasma 4.1 g/dL 3.6-5.1 Albumin FLOR[place]OME ([facility]) Albumin/Globulin [Mass Ratio] in Serum or Plasma 1.7 (calc) 1.0-2 .5 Albumin/globulin Ratio FLOR[place]OME ([facility]) Bilirubin.total [Mass/volume] in Serum or Plasma 0.5 mg/dL 0.2-1 .2 Bilirubin, Total FLOR[place]OME ([facility]) Aspartate aminotransferase [Enzymatic activity/volume] in Serum or Plasma 16 U/L 10-30 Ast FLOR[place]OME ([facility]) Alanine aminotransferase [Enzymatic activity/volume] in Seru m or Plasma 13 U/L 6-29 Alt JOHANA ([facility]) ID Date Data Source [id number] 03/22/2021 12:00:00 AM EDT [place]OME ([facility]) Name Value Range Interpretation Code Description Data Larissa rce(s) Supporting Document(s) Cholesterol in HDL [Mass/volume] in Serum or Plasma 43 mg/dL > or = 50 Below low normal HDL Cholesterol JOHANA ([facility]) Cholesterol [Mass/volume] in Serum or Plasma 220 mg/dL <200 Above high normal Cholesterol, Total JOHANA ([facility]) Triglyceride [Mass/volume] in Serum or Plasma 167 mg/dL <150 Above high normal Triglycerides JOHANA ([facility]) Cholesterol.total/Cholesterol in HDL [Mass Ratio] in Serum o r Plasma 5.1 (calc) <5.0 Above high normal Chol/hdlc Ratio JOHANA ([facility]) Cholesterol non HDL [Mass/volume] in Serum or Plasma 177 mg/dL_( calc) <130 Above high normal Non HDL Cholesterol JOHANA ([facility]) Cholesterol in LDL [Mass/volume] in Serum or Plasma by calculation 147 mg/dL_(calc) Above high normal LDL-cholesterol JOHANA ([facility]) ID Date Data Source [id number] 03/22/2021 12:00:00 AM [facility] Name Value Range Interpretation Code Description Data Larissa rce(s) Supporting Document(s) Iron saturation [Mass Fraction] in Serum or Plasma 25 %_(calc) 16- 45 % Saturation JOHANA ([facility]) Iron binding capacity [Mass/volume] in Serum or Plasma 319 m cg/dL_(calc) 250-450 Iron Binding Capacity JOHANA ([facility]) Iron [Mass/volume] in Serum or Plasma 79 mcg/dL 40-190 Iron, Total JOHANA ([facility]) Ferritin [Mass/volume] in Serum or Plasma 38 NG/mL 16-154 Ferritin JOHANA ([facility]) ID Date Data Source [id number] 01/06/2021 03:20:00 PM EDT [facility] Name Value Range Interpretation Code Description Data Larissa rce(s) Supporting Document(s) SARS-CoV-2 (COVID 19) NEGATIVE - SARS-CoV-2 (COVID19) [facility] This lab was ordered by [facility] a nd reported by [facility]. ID Date Data Source [id number] 10/26/2020 11:30:00 AM EST [facility] Name Value Range Interpretation Code Description Data Larissa rce(s) Supporting Document(s) HIV 1&2 screen centaur negative negative HIV 1&2 Scree n Centaur JOHANA ([facility]) ID Date Data Source [id number] 10/26/2020 11:30:00 AM EST JOHANA ([facility]) Name Value Range Interpretation Code Description Data Larissa rce(s) Supporting Document(s) thyroid stimulating hormone 2.170 uIU/mL 0.358-3.740 Thyroid Stimulating Hormone JOHANA ([facility]) ID Date Data Source [id number] 10/26/2020 11:30:00 AM EST JOHANA ([facility]) Name Value Range Interpretation Code Description Data Larissa rce(s) Supporting Document(s) HDL cholesterol 39 mg/dL >40 Below low normal HDL Cholestero l JOHANA ([facility]) triglycerides level 216 mg/dL <150 Above high normal Triglycer ides Level JOHANA ([facility]) cholesterol level 195 mg/dL <200 Cholesterol Level FLORAHOME ([facility]) cholesterol risk ratio <5 Cholesterol R isk Ratio JOHANA ([facility]) non-HDL-C 156 mg/dL Non-hdl-c JOHANA ([facility]) Cholesterol in LDL [Mass/volume] in Serum or Plasma 113 mg/dL <100 Above high normal LDL Cholesterol JOHANA ([facility]) ID Date Data Source [id number] 10/26/2020 11:30:00 AM EST JOHANA ([facility]) Name Value Range Interpretation Code Description Data Larissa rce(s) Supporting Document(s) hepatitis C virus cy index 0.1 index <0.8 Hepatiti s C Virus Cy Index JOHANA ([facility]) ID Date Data Source [id number] 10/26/2020 11:30:00 AM EST JOHANA ([facility]) Name Value Range Interpretation Code Description Data Larissa rce(s) Supporting Document(s) glucose, fasting 102 mg/dL 70-100 Above high normal Glucose, Fas ting JOHANA ([facility]) glomerular filtration rate > 60.0 >60 Glomerula r Filtration Rate JOHANA ([facility]) blood urea nitrogen 15 mg/dL 7-18 Blood Urea Nitro gen JOHANA ([facility]) creatinine for GFR 0.94 mg/dL 0.55-1.30 Creatinine for GF R JOHANA ([facility]) potassium serum 3.9 mEq/L 3.5-5.1 Potassium Serum ATHE NA ([facility]) sodium level 142 mEq/L 136-145 Sodium Level JOHANA ([facility]) chloride level 106 mEq/L 98-107 Chloride Level JOHANA ([facility]) anion gap 7 mEq/L 8-16 Below low normal Anion Gap JOHANA ( [facility]) carbon dioxide level 29 mEq/L 21-32 Carbon Dioxide Level JOHANA ([facility]) calcium level 9.3 mg/dL 8.5-10.1 Calcium Level JOHANA ( [facility]) AST/SGOT 11 U/L 7-37 AST/SGOT JOHANA ([facility]) ALT/SGPT 18 U/L 12-78 ALT/SGPT JOHANA ([facility]) bilirubin,total 0.3 mg/dL 0.2-1.0 Bilirubin,total ATHE ([facility]) alkaline phosphatase 72 U/L 45-117 Alkaline Phosph atase JOHANA ([facility]) albumin 3.7 gm/dL 3.2-5.2 Albumin JOHANA ([facility]) albumin/globulin ratio 1.2-2.2 Below low normal Albumin /globulin Ratio JOHANA ([facility]) total protein 7.0 gm/dL 6.4-8.2 Total Protein JOHANA ( [facility]) ID Date Data Source [id number] 10/26/2020 11:30:00 AM EST JOHANA ([facility]) Name Value Range Interpretation Code Description Data Larissa rce(s) Supporting Document(s) HIV 1&2 screen centaur negative negative HIV 1&2 Scree n Centaur JOHANA ([facility]) ID Date Data Source [id number] 10/26/2020 11:30:00 AM EST JOHANA ([facility]) Name Value Range Interpretation Code Description Data Larissa rce(s) Supporting Document(s) thyroid stimulating hormone 2.170 uIU/mL 0.358-3.740 Thyroid Stimulating Hormone JOHANA ([facility]) ID Date Data Source [id number] 10/26/2020 11:30:00 AM EST JOHANA ([facility]) Name Value Range Interpretation Code Description Data Larissa rce(s) Supporting Document(s) triglycerides level 216 mg/dL <150 Above high normal Triglycer ides Level JOHANA ([facility]) HDL cholesterol 39 mg/dL >40 Below low normal HDL Cholestero l JOHANA ([facility]) cholesterol level 195 mg/dL <200 Cholesterol Level JOHANA ([facility]) Cholesterol in LDL [Mass/volume] in Serum or Plasma 113 mg/dL <100 Above high normal LDL Cholesterol JOHANA ([facility]) non-HDL-C 156 mg/dL Non-hdl-c JOHANA ([facility]) cholesterol risk ratio <5 Cholesterol R isk Ratio JOHANA ([facility]) ID Date Data Source [id number] 10/26/2020 11:30:00 AM EST JOHANA ([facility]) Name Value Range Interpretation Code Description Data Larissa rce(s) Supporting Document(s) hepatitis C virus cy index 0.1 index <0.8 Hepatiti s C Virus Cy Index JOHANA ([facility]) ID Date Data Source [id number] 10/26/2020 11:30:00 AM EST JOHANA ([facility]) Name Value Range Interpretation Code Description Data Larissa rce(s) Supporting Document(s) glucose, fasting 102 mg/dL 70-100 Above high normal Glucose, Fas ting JOHANA ([facility]) blood urea nitrogen 15 mg/dL 7-18 Blood Urea Nitro gen JOHANA ([facility]) glomerular filtration rate > 60.0 >60 Glomerula r Filtration Rate JOHANA ([facility]) creatinine for GFR 0.94 mg/dL 0.55-1.30 Creatinine for GF R JOHANA ([facility]) sodium level 142 mEq/L 136-145 Sodium Level JOHANA ([facility]) potassium serum 3.9 mEq/L 3.5-5.1 Potassium Serum ATHE NA ([facility]) chloride level 106 mEq/L 98-107 Chloride Level JOHANA ([facility]) carbon dioxide level 29 mEq/L 21-32 Carbon Dioxide Level JOHANA ([facility]) calcium level 9.3 mg/dL 8.5-10.1 Calcium Level JOHANA ( [facility]) anion gap 7 mEq/L 8-16 Below low normal Anion Gap JOHANA ( [facility]) AST/SGOT 11 U/L 7-37 AST/SGOT JOHANA ([facility]) ALT/SGPT 18 U/L 12-78 ALT/SGPT JOHANA ([facility]) alkaline phosphatase 72 U/L 45-117 Alkaline Phosph atase JOHANA ([facility]) bilirubin,total 0.3 mg/dL 0.2-1.0 Bilirubin,total ATHE NA ([facility]) total protein 7.0 gm/dL 6.4-8.2 Total Protein JOHANA ( [facility]) albumin 3.7 gm/dL 3.2-5.2 Albumin JOHANA ([facility]) albumin/globulin ratio 1.2-2.2 Below low normal Albumin /globulin Ratio JOHANA ([facility]) ID Date Data Source [id number] 10/26/2020 11:30:00 AM EST JOHANA ([facility]) Name Value Range Interpretation Code Description Data Larissa rce(s) Supporting Document(s) HIV 1&2 screen centaur negative negative HIV 1&2 Scree n Centaur JOHANA ([facility]) ID Date Data Source [id number] 10/26/2020 11:30:00 AM EST FLORAHOME ([facility]) Name Value Range Interpretation Code Description Data Larissa rce(s) Supporting Document(s) thyroid stimulating hormone 2.170 uIU/mL 0.358-3.740 Thyroid Stimulating Hormone JOHANA ([facility]) ID Date Data Source [id number] 10/26/2020 11:30:00 AM EST JOHANA ([facility]) Name Value Range Interpretation Code Description Data Larissa rce(s) Supporting Document(s) triglycerides level 216 mg/dL <150 Above high normal Triglycer ides Level JOHANA ([facility]) cholesterol level 195 mg/dL <200 Cholesterol Level FLORAHOME ([facility]) Cholesterol in LDL [Mass/volume] in Serum or Plasma 113 mg/dL <100 Above high normal LDL Cholesterol JOHANA ([facility]) HDL cholesterol 39 mg/dL >40 Below low normal HDL Cholestero l JOHANA ([facility]) non-HDL-C 156 mg/dL Non-hdl-c JOHANA ([facility]) cholesterol risk ratio <5 Cholesterol R isk Ratio FLORAHOME ([facility]) ID Date Data Source [id number] 10/26/2020 11:30:00 AM EST FLORAHOME ([facility]) Name Value Range Interpretation Code Description Data Larissa rce(s) Supporting Document(s) hepatitis C virus cy index 0.1 index <0.8 Hepatiti s C Virus Cy Index JOHANA ([facility]) ID Date Data Source [id number] 10/26/2020 11:30:00 AM EST JOHANA ([facility]) Name Value Range Interpretation Code Description Data Larissa rce(s) Supporting Document(s) glucose, fasting 102 mg/dL 70-100 Above high normal Glucose, Fas ting JOHANA ([facility]) blood urea nitrogen 15 mg/dL 7-18 Blood Urea Nitro gen JOHANA ([facility]) creatinine for GFR 0.94 mg/dL 0.55-1.30 Creatinine for GF R JOHANA ([facility]) glomerular filtration rate > 60.0 >60 Glomerula r Filtration Rate JOHANA ([facility]) chloride level 106 mEq/L 98-107 Chloride Level JOHANA ([facility]) potassium serum 3.9 mEq/L 3.5-5.1 Potassium Serum ATHE NA ([facility]) sodium level 142 mEq/L 136-145 Sodium Level JOHANA ([facility]) carbon dioxide level 29 mEq/L 21-32 Carbon Dioxide Level JOHANA ([facility]) anion gap 7 mEq/L 8-16 Below low normal Anion Gap JOHANA ( [facility]) AST/SGOT 11 U/L 7-37 AST/SGOT JOHANA ([facility]) calcium level 9.3 mg/dL 8.5-10.1 Calcium Level JOHANA ( [facility]) ALT/SGPT 18 U/L 12-78 ALT/SGPT JOHANA ([facility]) alkaline phosphatase 72 U/L 45-117 Alkaline Phosph atase JOHANA ([facility]) bilirubin,total 0.3 mg/dL 0.2-1.0 Bilirubin,total ATHE ([facility]) albumin 3.7 gm/dL 3.2-5.2 Albumin JOHANA ([facility]) total protein 7.0 gm/dL 6.4-8.2 Total Protein JOHANA ( [facility]) albumin/globulin ratio 1.2-2.2 Below low normal Albumin /globulin Ratio JOHANA ([facility]) ID Date Data Source [id number] 10/26/2020 11:30:00 AM EST JOHANA ([facility]) Name Value Range Interpretation Code Description Data Larissa rce(s) Supporting Document(s) HIV 1&2 screen centaur negative negative HIV 1&2 Scree n Centaur JOHANA ([facility]) ID Date Data Source [id number] 10/26/2020 11:30:00 AM EST JOHANA ([facility]) Name Value Range Interpretation Code Description Data Larissa rce(s) Supporting Document(s) thyroid stimulating hormone 2.170 uIU/mL 0.358-3.740 Thyroid Stimulating Hormone JOHANA ([facility]) ID Date Data Source [id number] 10/26/2020 11:30:00 AM EST JOHANA ([facility]) Name Value Range Interpretation Code Description Data Larissa rce(s) Supporting Document(s) triglycerides level 216 mg/dL <150 Above high normal Triglycer ides Level JOHANA ([facility]) HDL cholesterol 39 mg/dL >40 Below low normal HDL Cholestero l JOHANA ([facility]) cholesterol level 195 mg/dL <200 Cholesterol Level JOHANA ([facility]) Cholesterol in LDL [Mass/volume] in Serum or Plasma 113 mg/dL <100 Above high normal LDL Cholesterol JOHANA ([facility]) cholesterol risk ratio <5 Cholesterol R isk Ratio JOHANA ([facility]) non-HDL-C 156 mg/dL Non-hdl-c JOHANA ([facility]) ID Date Data Source [id number] 10/26/2020 11:30:00 AM EST JOHANA ([facility]) Name Value Range Interpretation Code Description Data Larissa rce(s) Supporting Document(s) hepatitis C virus cy index 0.1 index <0.8 Hepatiti s C Virus Cy Index JOHANA ([facility]) ID Date Data Source [id number] 10/26/2020 11:30:00 AM EST JOHANA ([facility]) Name Value Range Interpretation Code Description Data Larissa rce(s) Supporting Document(s) glucose, fasting 102 mg/dL 70-100 Above high normal Glucose, Fas ting JOHANA ([facility]) glomerular filtration rate > 60.0 >60 Glomerula r Filtration Rate JOHANA ([facility]) blood urea nitrogen 15 mg/dL 7-18 Blood Urea Nitro gen JOHANA ([facility]) sodium level 142 mEq/L 136-145 [facility] Level [facility] creatinine for GFR 0.94 mg/dL 0.55-1.30 Creatinine for GF R JOHANA ([facility]) carbon dioxide level 29 mEq/L 21-32 Carbon Dioxide Level JOHANA ([facility]) potassium serum 3.9 mEq/L 3.5-5.1 Potassium Serum ATHE NA ([facility]) chloride level 106 mEq/L 98-107 Chloride Level JOHANA ([facility]) calcium level 9.3 mg/dL 8.5-10.1 Calcium Level JOHANA ( [facility]) AST/SGOT 11 U/L 7-37 AST/SGOT JOHANA ([facility]) anion gap 7 mEq/L 8-16 Below low normal Anion Gap JOHANA ( [facility]) ALT/SGPT 18 U/L 12-78 ALT/SGPT JOHANA ([facility]) total protein 7.0 gm/dL 6.4-8.2 Total Protein JOHANA ( [facility]) bilirubin,total 0.3 mg/dL 0.2-1.0 Bilirubin,total ATHE ([facility]) alkaline phosphatase 72 U/L 45-117 Alkaline Phosph atase JOHANA ([facility]) albumin 3.7 gm/dL 3.2-5.2 Albumin JOHANA ([facility]) albumin/globulin ratio 1.2-2.2 Below low normal Albumin /globulin Ratio JOHANA ([facility]) ID Date Data Source [id number] 10/26/2020 11:30:00 AM EST JOHANA ([facility]) Name Value Range Interpretation Code Description Data Larissa rce(s) Supporting Document(s) HIV 1&2 screen centaur negative negative HIV 1&2 Scree n Centaur JOHANA ([facility]) ID Date Data Source [id number] 10/26/2020 11:30:00 AM EST JOHANA ([facility]) Name Value Range Interpretation Code Description Data Larissa rce(s) Supporting Document(s) thyroid stimulating hormone 2.170 uIU/mL 0.358-3.740 Thyroid Stimulating Hormone JOHANA ([facility]) ID Date Data Source [id number] 10/26/2020 11:30:00 AM EST JOHANA ([facility]) Name Value Range Interpretation Code Description Data Larissa rce(s) Supporting Document(s) cholesterol level 195 mg/dL <200 Cholesterol Level JOHANA ([facility]) triglycerides level 216 mg/dL <150 Above high normal Triglycer ides Level JOHANA ([facility]) Cholesterol in LDL [Mass/volume] in Serum or Plasma 113 mg/dL <100 Above high normal LDL Cholesterol JOHANA ([facility]) cholesterol risk ratio <5 Cholesterol R isk Ratio JOHANA ([facility]) HDL cholesterol 39 mg/dL >40 Below low normal HDL Cholestero l JOHANA ([facility]) non-HDL-C 156 mg/dL Non-hdl-c JOHANA ([facility]) ID Date Data Source [id number] 10/26/2020 11:30:00 AM EST JOHANA ([facility]) Name Value Range Interpretation Code Description Data Larissa rce(s) Supporting Document(s) hepatitis C virus cy index 0.1 index <0.8 Hepatiti s C Virus Cy Index JOHANA ([facility]) ID Date Data Source [id number] 10/26/2020 11:30:00 AM EST FLORAHOME ([facility]) Name Value Range Interpretation Code Description Data Larissa rce(s) Supporting Document(s) creatinine for GFR 0.94 mg/dL 0.55-1.30 Creatinine for GF R FLORAHOME ([facility]) blood urea nitrogen 15 mg/dL 7-18 Blood Urea Nitro gen FLORAHOME ([facility]) glucose, fasting 102 mg/dL 70-100 Above high normal Glucose, Fas ting JOHANA ([facility]) glomerular filtration rate > 60.0 >60 Glomerula r Filtration Rate JOHANA ([facility]) sodium level 142 mEq/L 136-145 Sodium Level JOHANA ([facility]) potassium serum 3.9 mEq/L 3.5-5.1 Potassium Serum ATHE NA ([facility]) chloride level 106 mEq/L 98-107 Chloride Level JOHANA ([facility]) anion gap 7 mEq/L 8-16 Below low normal Anion Gap JOHANA ( [facility]) carbon dioxide level 29 mEq/L 21-32 Carbon Dioxide Level JOHANA ([facility]) calcium level 9.3 mg/dL 8.5-10.1 Calcium Level JOHANA ( [facility]) ALT/SGPT 18 U/L 12-78 ALT/SGPT JOHANA ([facility]) alkaline phosphatase 72 U/L 45-117 Alkaline Phosph atase JOHANA ([facility]) AST/SGOT 11 U/L 7-37 AST/SGOT JOHANA ([facility]) bilirubin,total 0.3 mg/dL 0.2-1.0 Bilirubin,total ATHE ([facility]) albumin/globulin ratio 1.2-2.2 Below low normal Albumin /globulin Ratio JOHANA ([facility]) albumin 3.7 gm/dL 3.2-5.2 Albumin JOHANA ([facility]) total protein 7.0 gm/dL 6.4-8.2 Total Protein JOHANA ( [facility]) ID Date Data Source [id number] 10/26/2020 11:30:00 AM EST JOHANA ([facility]) Name Value Range Interpretation Code Description Data Larissa rce(s) Supporting Document(s) triglycerides level 216 mg/dL <150 Above high normal Triglycer ides Level JOHANA ([facility]) HDL cholesterol 39 mg/dL >40 Below low normal HDL Cholestero l JOHANA ([facility]) cholesterol level 195 mg/dL <200 Cholesterol Level JOHANA ([facility]) cholesterol risk ratio <5 Cholesterol R isk Ratio JOHANA ([facility]) non-HDL-C 156 mg/dL Non-hdl-c JOHANA ([facility]) Cholesterol in LDL [Mass/volume] in Serum or Plasma 113 mg/dL <100 Above high normal LDL Cholesterol JOHANA ([facility]) ID Date Data Source [id number] 10/26/2020 11:30:00 AM EST JOHANA ([facility]) Name Value Range Interpretation Code Description Data Larissa rce(s) Supporting Document(s) hepatitis C virus cy index 0.1 index <0.8 Hepatiti s C Virus Cy Index JOHANA ([facility]) ID Date Data Source [id number] 10/26/2020 11:30:00 AM EST JOHANA ([facility]) Name Value Range Interpretation Code Description Data Larissa rce(s) Supporting Document(s) glucose, fasting 102 mg/dL 70-100 Above high normal Glucose, Fas ting JOHANA ([facility]) blood urea nitrogen 15 mg/dL 7-18 Blood Urea Nitro gen JOHANA ([facility]) creatinine for GFR 0.94 mg/dL 0.55-1.30 Creatinine for GF R JOHANA ([facility]) glomerular filtration rate > 60.0 >60 Glomerula r Filtration Rate JOHANA ([facility]) sodium level 142 mEq/L 136-145 Sodium Level JOHANA ([facility]) potassium serum 3.9 mEq/L 3.5-5.1 Potassium Serum ATHE NA ([facility]) chloride level 106 mEq/L 98-107 Chloride Level JOHANA ([facility]) anion gap 7 mEq/L 8-16 Below low normal Anion Gap JOHANA ( [facility]) carbon dioxide level 29 mEq/L 21-32 Carbon Dioxide Level JOHANA ([facility]) AST/SGOT 11 U/L 7-37 AST/SGOT JOHANA ([facility]) ALT/SGPT 18 U/L 12-78 ALT/SGPT JOHANA ([facility]) calcium level 9.3 mg/dL 8.5-10.1 Calcium Level JOHANA ( [facility]) bilirubin,total 0.3 mg/dL 0.2-1.0 Bilirubin,total ATHE NA ([facility]) total protein 7.0 gm/dL 6.4-8.2 Total Protein JOHANA ( [facility]) alkaline phosphatase 72 U/L 45-117 Alkaline Phosph atase JOHANA ([facility]) albumin/globulin ratio 1.2-2.2 Below low normal Albumin /globulin Ratio JOHANA ([facility]) albumin 3.7 gm/dL 3.2-5.2 Albumin JOHANA ([facility]) ID Date Data Source [id number] 10/26/2020 11:30:00 AM EST JOHANA ([facility]) Name Value Range Interpretation Code Description Data Larissa rce(s) Supporting Document(s) HIV 1&2 screen centaur negative negative HIV 1&2 Scree n Centaur JOHANA ([facility]) ID Date Data Source [id number] 10/26/2020 11:30:00 AM EST JOHANA ([facility]) Name Value Range Interpretation Code Description Data Larissa rce(s) Supporting Document(s) thyroid stimulating hormone 2.170 uIU/mL 0.358-3.740 Thyroid Stimulating Hormone JOHANA ([facility]) ID Date Data Source [id number] 10/26/2020 11:30:00 AM EST JOHANA ([facility]) Name Value Range Interpretation Code Description Data Larissa rce(s) Supporting Document(s) cholesterol level 195 mg/dL <200 Cholesterol Level JOHANA ([facility]) triglycerides level 216 mg/dL <150 Above high normal Triglycer ides Level JOHANA ([facility]) HDL cholesterol 39 mg/dL >40 Below low normal HDL Cholestero l JOHANA ([facility]) cholesterol risk ratio <5 Cholesterol R isk Ratio JOHANA ([facility]) Cholesterol in LDL [Mass/volume] in Serum or Plasma 113 mg/dL <100 Above high normal LDL Cholesterol JOHANA ([facility]) non-HDL-C 156 mg/dL Non-hdl-c JOHANA ([facility]) ID Date Data Source [id number] 10/26/2020 11:30:00 AM EST JOHANA ([facility]) Name Value Range Interpretation Code Description Data Larissa rce(s) Supporting Document(s) hepatitis C virus cy index 0.1 index <0.8 Hepatiti s C Virus Cy Index JOHANA ([facility]) ID Date Data Source [id number] 10/26/2020 11:30:00 AM EST JOHANA ([facility]) Name Value Range Interpretation Code Description Data Larissa rce(s) Supporting Document(s) glucose, fasting 102 mg/dL 70-100 Above high normal Glucose, Fas ting JOHANA ([facility]) blood urea nitrogen 15 mg/dL 7-18 Blood Urea Nitro gen JOHANA ([facility]) glomerular filtration rate > 60.0 >60 Glomerula r Filtration Rate JOHANA ([facility]) creatinine for GFR 0.94 mg/dL 0.55-1.30 Creatinine for GF R JOHANA ([facility]) sodium level 142 mEq/L 136-145 Sodium Level JOHANA ([facility]) potassium serum 3.9 mEq/L 3.5-5.1 Potassium Serum ATHE NA ([facility]) chloride level 106 mEq/L 98-107 Chloride Level JOHANA ([facility]) carbon dioxide level 29 mEq/L 21-32 Carbon Dioxide Level JOHANA ([facility]) AST/SGOT 11 U/L 7-37 AST/SGOT JOHANA ([facility]) calcium level 9.3 mg/dL 8.5-10.1 Calcium Level JOHANA ( [facility]) anion gap 7 mEq/L 8-16 Below low normal Anion Gap JOHANA ( [facility]) bilirubin,total 0.3 mg/dL 0.2-1.0 Bilirubin,total ATHE NA ([facility]) alkaline phosphatase 72 U/L 45-117 Alkaline Phosph atase JOHANA ([facility]) ALT/SGPT 18 U/L 12-78 ALT/SGPT [facility] [facility]) albumin 3.7 gm/dL 3.2-5.2 Albumin JOHANA ([facility]) total protein 7.0 gm/dL 6.4-8.2 Total Protein JOHANA ( [facility]) albumin/globulin ratio 1.2-2.2 Below low normal Albumin /globulin Ratio JOHANA ([facility]) ID Date Data Source [id number] 10/26/2020 11:30:00 AM EST JOHANA ([facility]) Name Value Range Interpretation Code Description Data Larissa rce(s) Supporting Document(s) HIV 1&2 screen centaur negative negative HIV 1&2 Scree n Centaur JOHANA ([facility]) ID Date Data Source [id number] 10/26/2020 11:30:00 AM EST JOHANA ([facility]) Name Value Range Interpretation Code Description Data Larissa rce(s) Supporting Document(s) thyroid stimulating hormone 2.170 uIU/mL 0.358-3.740 Thyroid Stimulating Hormone JOHANA ([facility]) ID Date Data Source [id number] 10/26/2020 11:30:00 AM EST JOHANA ([facility]) Name Value Range Interpretation Code Description Data Larissa rce(s) Supporting Document(s) cholesterol level 195 mg/dL <200 Cholesterol Level JOHANA ([facility]) triglycerides level 216 mg/dL <150 Above high normal Triglycer ides Level JOHANA ([facility]) cholesterol risk ratio <5 Cholesterol R isk Ratio JOHANA ([facility]) Cholesterol in LDL [Mass/volume] in Serum or Plasma 113 mg/dL <100 Above high normal LDL Cholesterol JOHANA ([facility]) non-HDL-C 156 mg/dL Non-hdl-c JOHANA ([facility]) HDL cholesterol 39 mg/dL >40 Below low normal HDL Cholestero l JOHANA ([facility]) ID Date Data Source [id number] 10/26/2020 11:30:00 AM EST JOHANA ([facility]) Name Value Range Interpretation Code Description Data Larissa rce(s) Supporting Document(s) hepatitis C virus cy index 0.1 index <0.8 Hepatiti s C Virus Cy Index JOHANA ([facility]) ID Date Data Source [id number] 10/26/2020 11:30:00 AM EST FLORAHOME ([facility]) Name Value Range Interpretation Code Description Data Larissa rce(s) Supporting Document(s) glucose, fasting 102 mg/dL 70-100 Above high normal Glucose, Fas ting JOHANA ([facility]) blood urea nitrogen 15 mg/dL 7-18 Blood Urea Nitro gen JOHANA ([facility]) creatinine for GFR 0.94 mg/dL 0.55-1.30 Creatinine for GF R JOHANA ([facility]) sodium level 142 mEq/L 136-145 Sodium Level JOHANA ([facility]) glomerular filtration rate > 60.0 >60 Glomerula r Filtration Rate JOHANA ([facility]) potassium serum 3.9 mEq/L 3.5-5.1 Potassium Serum ATH NA ([facility]) chloride level 106 mEq/L 98-107 Chloride Level JOHANA ([facility]) carbon dioxide level 29 mEq/L 21-32 Carbon Dioxide Level JOHANA ([facility]) anion gap 7 mEq/L 8-16 Below low normal Anion Gap JOHANA ( [facility]) calcium level 9.3 mg/dL 8.5-10.1 Calcium Level JOHANA ( [facility]) alkaline phosphatase 72 U/L 45-117 Alkaline Phosph atase JOHANA ([facility]) ALT/SGPT 18 U/L 12-78 ALT/SGPT JOHANA ([facility]) AST/SGOT 11 U/L 7-37 AST/SGOT JOHANA ([facility]) bilirubin,total 0.3 mg/dL 0.2-1.0 Bilirubin,total ATHE NA ([facility]) albumin 3.7 gm/dL 3.2-5.2 Albumin JOHANA ([facility]) total protein 7.0 gm/dL 6.4-8.2 Total Protein JOHANA ( [facility]) albumin/globulin ratio 1.2-2.2 Below low normal Albumin /globulin Ratio JOHANA ([facility]) ID Date Data Source [id number] 10/26/2020 11:30:00 AM EST JOHANA ([facility]) Name Value Range Interpretation Code Description Data Larissa rce(s) Supporting Document(s) HIV 1&2 screen centaur negative negative HIV 1&2 Scree n Centaur JOHANA ([facility]) ID Date Data Source [id number] 10/26/2020 11:30:00 AM EST JOHANA ([facility]) Name Value Range Interpretation Code Description Data Larissa rce(s) Supporting Document(s) thyroid stimulating hormone 2.170 uIU/mL 0.358-3.740 Thyroid Stimulating Hormone JOHANA ([facility]) ID Date Data Source [id number] 07/26/2020 10:00:00 AM EST [facility] Name Value Range Interpretation Code Description Data Larissa rce(s) Supporting Document(s) SARS coronavirus 2 RNA [facility] This lab was ordered by [facility] and reported by [facility]. ID Date Data Source [id number] 06/21/2020 09:40:00 AM EDT [facility] Name Value Range Interpretation Code Description Data Larissa rce(s) Supporting Document(s) SARS coronavirus 2 RNA [facility] This lab was ordered by [facility] and reported by [facility]. ID Date Data Source [id number] 06/19/2020 10:58:25 AM EDT [facility] Measurements & CalculationsHeight: 65 inches (5 ft. 5 in.) 165.10 cm Weight: 252 pounds 114.55 kg Body Mass Index (BMI): 42.09BMI Interpretation: Morbidly ObeseBody Surface Area (BSA): 2.18Weight Management Education Done (Nutrition/Physical Activity)Vital SignsTemperature: 97.7FPulse Rate: 63 beats/minuteRespiratory Rate: 14 respirations/minuteBlood Pressure: 111/80 O2 Saturation: 90% Vital Signs performed by: Natacha Herzog LPN, June 19, 2020 11:00 AMVital Signs performed by: Natacha Herzog LPN, June 19, 2020 11:00 AMInitial Intake Information From: patientRoom #: 9Infectious Disease / Travel ScreeningRecent travel for you or any close contacts? NoHave you had any close contact with anyone diagnosed with or under investigation for COVID-19 (coronavirus)? NoFever? NoRespiratory symptoms: cough, cold, congestion, shortness of breath, difficulty breathing? NoLoss of smell? NoLoss of taste? NoSmoking, Tobacco, Vaping or Smoke Exposure StatusSmoke Status: never smokerTobacco Use: NoDo you vape? NoPassive Smoke Exposure: NoMenstrual HistoryLast Menstrual Period (LMP): 06/09/2020Any possibility of ? N oHealthcare HistorySince your last office visit...Have you been admitted to the hospital? NoHave you been to an emergency room (ER) or urgent care clinic? NoHave you seen another healthcare provider? Yes - [facility] Have you seen a dentist? Yes - [facility]Intake performed by: Natacha Herzog LPN, June 19, 2020 11:02 AMRate Your HealthIn general, would you say your health is? PoorPain AssessmentAre you currently having any pain which... You would like your provider to address? Yes Affects your activity level? YesDepression Screening - PHQ-2Over the last two weeks, have you... Had little interest or pleasure in doing things? Not at all Been feeling down, depressed, or hopeless? Not at all PHQ-2 Score: 0Anxiety Screening - MERNA-2Over the last two weeks, have you been... Feeling nervous, anxious, or on edge? Not at all Unable to stop or control worrying? Not at all MERNA-2 Score: 0Food InsecurityWithin the past year...Did you worry whether your food would run out before you got money to buy more? Never trueWas there a time when the food you bought didn't last and you didn't have money to get more? Never truePain AssessmentPain ScaleNumeric Rating Scale: 9 / 10Location: left foot Duration: monthFrequency: DailyCharacter/Quality: throbbingIs the pain radiating? NoScreening, Brief Intervention, & Referral to Treatment (SBIRT)Pre-Screening Questions How many times have you have 4 or more drinks in a day? 0How many times have you used an illegal drug or used a prescription medication for a non-medical reason? 0Performed by: Natacha Herzog LPN, June 19, 2020 11:04 AMPatient History Medical History:AsthmaAnxiety DisorderDepressionHypertensionHypothyroidismOsteoarthritisFibromyalgiaRheumatoid ArthritisPVDMigrainesBorderline personality disorderPTSDOptic neuritisSurgical History:Lasix 2007Heart Cath 1997 as a result of tachycardia2 D & CLeep Apr 2018Family History:Dad- MSSocial/Personal History:Passive smoke exposure - yesAlcohol Use - noDrug Use - noHIV/High Risk - noRegular Exercise - yesSmoking History:Patient has never smoked.Marital Status- Chief Complaintfollow- up visit left foot pain room 9History of Present Illness (HPI)40 YO female here for follow up on left foot pain, Pt refused Flu vaccine Pt states foot pain ongoing for about 1 month. pt states have been having foot swelling on and koff due to medication side effect. HPI performed by: Kate CRYSTAL, June 19, 2020 11:56 AMTransitions of Care InboundProblem ReviewProblem List was reviewed and/or updated during this visit.Medication Reconciliation & ReviewMedication List was reviewed and/or updated during this visit, including review of any [id number] medications, herbal therapies, and/or supplements.Allergy ReviewAllergy List was reviewed and/or updated during this visit.Adult Preventive CareProvider Calculated and Reviewed all Clinical Protocols for patient today. Labs/Meds/Other Counseling-Nutrition and Physical Activity:BMI Interpretation: Morbidly Obese (06/19/2020) Counseling: Done (06/19/2020) Physical Activity: Done (06/19/2020)Review of Systems General: Denies loss of appetite, chills, dizziness, fatigue, fever, continued fever, headache, feeling ill, sweats, night sweats, sleep disturbances, weight loss. Eyes: Denies blurring of vision, double vision, irritation, discharge, vision loss, eye pain, eye swelling, droopy eyelid, sensitivity to light, redness, itching. Ears/Nose/Throat: Denies earache, ear discharge, ringing in ears, decreased hearing, nasal congestion, nosebleeds, runny nose, sore throat, hoarseness, difficulty swallowing, dry mouth, tooth pain, bleeding gums, swollen glands. Cardiovascular: Denies chest pain, palpitations, feeling faint, trouble breathing w/exertion, SOB upon lying down, SOB at night, peripheral edema, elevated blood pressure, decreased heart rate. Respiratory: Denies cough, difficulty breathing, shortness of breath, excessive sputum, coughing up blood, wheezing, chest pain. Breast: Denies discoloration, tenderness, breast changes, breast lump, nipple discharge. Gastrointestinal: Denies nausea, vomiting, bleeding, burning, itching, irritation, cramps, diarrhea. Genitourinary: Denies urinary incontinence, pain with urination, burning with urination, urinary frequency, urinary hesitancy, urinary urgency, urinary urgency at night, incomplete emptying, blood in urine. Musculoskeletal: Complains of leg pain. left foot elaine. Skin: Denies rash, hives, redness, itching, dryness, nail changes, suspicious lesions, athlete's foot, rash on palms, rash on bottom of feet. Neurologic: Denies muscle impairment, weakness, numbness/tingling, seizures, slurred speech, feeling faint, tremors, vertigo, paralysis on one side, paralysis on both sides. Psychiatric: Denies depression, anxiety, memory loss, mental disturbance, suicidal ideation, homicidal ideation, hallucinations, paranoia, feeling stressed, hearing voices. Endocrine: Denies cold intolerance, heat intolerance, excessive thirst, excessive hunger, excessive urination, weight loss, weight gain. Physical ExamGeneral Appearance: well nourished, well hydrated, no acute distressEyes, External: conjunctivae and lids normal, EOMIRespiratory, Auscultation: clear to auscultation bilaterally; no rales, rhonchi, or wheezesRespiratory, Effort: no intercostal retractions or use of accessory musclesCardiovascular, Auscultation: S1, S2 audible; no murmur, rub, or gallop; RRRPeripheral Circulation: no clubbing, cyanosis, edema, or varicositiesAbdomen: soft, non-tender, no masses, bowel sounds normalGait & Station: normalLower Extremity, Left: normal ROM and strength, no joint enlargement or tendernessFoot Inspection, Left: 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 no redness. no pitting edema noted. Skin, Inspection: no rashes, lesions, or ulcerationsOrientation: oriented to time, place, and personMood & Affect: no depression, anxiety, or agitationJudgment & Insight: intactCare Management Plan Transitions of CareInboundRate Your HealthIn general, would you say your health is? PoorAssessment & Plan Problems:Added: Pain in left foot (ICD-729.5) (JHE60-F96.672) Assessment: Instructions: Please take Tylenol as needed fopr pain. take 500mg two tablets by mouth daily up to 3 times daily. Please try to avoid prolonged standing ot heavy lifting. Please try to elevate foot frequently. may use warm water soaks. We have made a referral for you today. We will contact you to set this up.Patient Instructions/Care Plan: Pain in left foot: Please take Tylenol as needed fopr pain. take 500mg two tablets by mouth daily up to 3 times daily. Please try to avoid prolonged standing ot heavy lifting. Please try to elevate foot frequently. may use warm water soaks. We have made a referral for you today. We will contact you to set this up. Plan developed in collaboration with patient and/or familyMedications:ACETAMINOPHEN 500 MG ORAL TABLETQUETIAPINE FUMARATE 100 MG ORAL TABLETLAMOTRIGINE ER 100 MG ORAL TABLET EXTENDED RELEASE 24 HOUREQ FIBER LAXATIVE 625 MG ORAL TABLETORPHENADRINE CITRATE ER 100 MG ORAL TABLET EXTENDED RELEASE 12 HOURTRIAMTERENE-HCTZ 37.5-25 MG ORAL TABLETTIZANIDINE HCL 4 MG ORAL TABLETARNUITY ELLIPTA 100 MCG/ACT INHALATION AEROSOL POWDER BREATH ACTIVATEDFIBER-LAX TABLETELIQUIS 5 MG ORAL TABLETEQL VITAMIN D3 1000 UNIT ORAL CAPSULEPROZAC 10 MG ORAL CAPSULEKNEE BRACE ADJUSTABLE HINGEDZYRTEC ALLERGY 10 MG ORAL TABLETFLONASE ALLERGY RELIEF 50 MCG/ACT NASAL SUSPENSIONVENTOLIN HFA 108 (90 Base) MCG/ACT INHALATION AEROSOL SOLUTIONLOSARTAN POTASSIUM 50 MG ORAL TABLETLEVOTHYROXINE SODIUM 75 MCG ORAL TABLETALBUTEROL SULFATE (2.5 MG/3ML) 0.0 83% INHALATION NEBULIZATION SOLUTIONMedication Changes:New Prescription:ACETAMINOPHEN 500 MG ORAL TABLET-take two tablets by mouth three times daily as needed Qty: 60[Tablet] Refills: 0 Method: Elec tronicAllergies:PREDNISONE (Severe)* TRAZADONE (Severe)PENICILLIN (Moderate)Orders:Podiatry Consult [CPT-48780] Adult - Ofc Vst, EST, Level III [CPT-30261] Follow-Up Return to clinic: as scheduled and as needed Clinical Visit Summary CompletedMedications:ACETAMINOPHEN 500 MG ORAL TABLET (ACETAMINOPHEN) take two tablets by mouth three times daily as needed #60[Tablet] x 0 Route:ORAL Entered and Authorized by: Kate CRYSTAL Method used: Electronically to [facility] (retail) [address] [place] [address] Ph: Note to Pharmacy: Route: ORAL; Indications: PAIN IN LEFT FOOT RxID: [id number] signed by Kate CRYSTAL on 06/19/2020 at 12:10 PM Name Value Range Interpretation Code Description Data Larissa rce(s) Supporting Document(s) Procedure Social History Code Duration Value Status Description Data Source(s ) Smoking 05/25/2021 12:00:00 AM EDT Never Smoker completed Never S trupti eCW1 ([facility]) Smoking 05/25/2021 12:00:00 AM EDT Never Smoker completed Never S moker eCW1 ([facility]) Smoking 05/25/2021 12:00:00 AM EDT Never Smoker completed Never S moker eCW1 ([facility]) Smoking 04/30/2021 12:00:00 AM EDT Never Smoker completed Never S moker eCW1 ([facility]) Smoking 04/10/2021 12:00:00 AM EDT Never Smoker completed Never S moker eCW1 ([facility]) Smoking 04/10/2021 12:00:00 AM EDT Never Smoker completed Never S moker eCW1 ([facility]) Smoking 04/10/2021 12:00:00 AM EDT Never Smoker completed Never S moker eCW1 ([facility]) Smoking 04/10/2021 12:00:00 AM EDT Never Smoker completed Never S moker eCW1 ([facility]) Smoking 03/09/2021 12:00:00 AM EDT Never Smoker completed Never S moker eCW1 ([facility]) Smoking 01/15/2021 12:00:00 AM EDT Never Smoker completed Never S moker eCW1 ([facility]) Smoking 01/15/2021 12:00:00 AM EDT Never Smoker completed Never S moker eCW1 ([facility]) Smoking 11/27/2020 12:00:00 AM EDT Never Smoker completed Never S moker eCW1 ([facility]) Smoking 11/16/2020 12:00:00 AM EST Never Smoker completed Never S moker eCW1 ([facility]) Smoking 10/25/2020 12:00:00 AM EST Unknown if ever smoked comp leted Unknown if ever smoked [facility] ([facility] Smoking 09/29/2020 12:00:00 AM EST Never Smoker completed Never S moker eCW1 ([facility]) Smoking 09/29/2020 12:00:00 AM EST Never Smoker completed Never S moker eCW1 ([facility]) Smoking 09/29/2020 12:00:00 AM EST Never Smoker completed Never S moker eCW1 ([facility]) Smoking 09/11/2020 12:00:00 AM EST Unknown if ever smoked comp leted Unknown if ever smoked [facility] ([facility] Smoking 08/17/2020 12:00:00 AM EST Unknown if ever smoked comp leted Unknown if ever smoked [facility] ([facility]) Smoking 07/31/2020 12:00:00 AM EST Never Smoker completed Never S moker eCW1 ([facility]) Smoking 07/31/2020 12:00:00 AM EST Never Smoker completed Never S moker eCW1 ([facility]) Smoking 07/31/2020 12:00:00 AM EST Never Smoker completed Never S moker eCW1 ([facility]) Smoking 07/10/2020 12:00:00 AM EDT Unknown if ever smoked comp leted Unknown if ever smoked [facility] ([facility]) Smoking 06/22/2020 12:00:00 AM EDT Never Smoker completed Never S moker eCW1 ([facility]) Smoking 06/19/2020 12:00:00 AM EDT Unknown if ever smoked comp leted Unknown if ever smoked [facility] ([facility]) Smoking 06/15/2020 12:00:00 AM EDT Unknown if ever smoked comp leted Unknown if ever smoked [facility] ([facility]) Vital Signs ID Date Data Source UNK Name Value Range Interpretation Code Description Data Source(s) Diastolic blood pressure 89 mm[Hg] 89 mm[Hg] JOHANA ([facility]) Body height 65 [in_i] 65 [in_i] JOHANA ([facility]) Body mass index (BMI) [Ratio] 41.1 kg/m2 41.1 k g/m2 JOHANA ([facility]) Systolic blood pressure 136 mm[Hg] 136 mm[Hg] Ricardo RAZO ([facility]) Body weight 3954 [oz_av] 3954 [oz_av] JOHANA ([facility]) Body height 65 [in_i] 65 [in_i] JOHANA ([facility]) Body height 65 [in_i] 65 [in_i] JOHANA ([facility]) Body weight 256 [lb_av] 256 [lb_av] eCW1 ([facility]) Body weight 116.12 kg 116.12 kg eCW1 ([facility]) Body height [in_i] eCW1 ([facility]) Body mass index (BMI) [Ratio] 42.60 kg/m2 42.60 kg/m2 eCW1 ([facility]) Heart rate 78 /min 78 /min eCW1 [facility] Respiratory rate 17 /min 17 /min eCW1 ([facility]) Body temperature 95.5 [degF] 95.5 [degF] eCW1 ( [facility]) Systolic blood pressure 112 mm[Hg] 112 mm[Hg] e CW1 ([facility]) Diastolic blood pressure 64 mm[Hg] 64 mm[Hg] eCW1 ([facility]) Body height 65 [in_i] 65 [in_i] JOHANA ([facility]) Body mass index (BMI) [Ratio] 42.6 kg/m2 42.6 k g/m2 JOHANA ([facility]) Systolic blood pressure 124 mm[Hg] 124 mm[Hg] A THENA ([facility]) Body weight 4100 [oz_av] 4100 [oz_av] JOHANA ([facility]) Diastolic blood pressure 73 mm[Hg] 73 mm[Hg] JOHANA ([facility]) Diastolic blood pressure 73 mm[Hg] 73 mm[Hg] JOHANA ([facility]) Body height 65 [in_i] 65 [in_i] JOHANA ([facility]) Body mass index (BMI) [Ratio] 42.6 kg/m2 42.6 k g/m2 JOHANA ([facility]) Systolic blood pressure 124 mm[Hg] 124 mm[Hg] A THENA ([facility]) Body weight 4100 [oz_av] 4100 [oz_av] JOHANA ([facility]) Diastolic blood pressure 73 mm[Hg] 73 mm[Hg] JOHANA ([facility]) Body height 65 [in_i] 65 [in_i] JOHANA ([facility]) Body mass index (BMI) [Ratio] 42.6 kg/m2 42.6 k g/m2 JOHANA ([facility]) Systolic blood pressure 124 mm[Hg] 124 mm[Hg] A THENA ([facility]) Body weight 4100 [oz_av] 4100 [oz_av] JOHANA ([facility]) Diastolic blood pressure 73 mm[Hg] 73 mm[Hg] JOHANA ([facility]) Body height 65 [in_i] 65 [in_i] JOHANA ([facility]) Body mass index (BMI) [Ratio] 42.6 kg/m2 42.6 k g/m2 JOHANA ([facility]) Systolic blood pressure 124 mm[Hg] 124 mm[Hg] A THENA ([facility]) Body weight 4100 [oz_av] 4100 [oz_av] JOHANA ([facility]) Diastolic blood pressure 73 mm[Hg] 73 mm[Hg] JOHANA ([facility]) Body height 65 [in_i] 65 [in_i] JOHANA ([facility]) Body mass index (BMI) [Ratio] 42.6 kg/m2 42.6 k g/m2 JOHANA ([facility]) Systolic blood pressure 124 mm[Hg] 124 mm[Hg] A THENA ([facility]) Body weight 4100 [oz_av] 4100 [oz_av] JOHANA ([facility]) Body weight 256 [lb_av] 256 [lb_av] eCW1 ([facility]) Body weight 116.12 kg 116.12 kg eCW1 ([facility]) Body height [in_i] eCW1 ([facility]) Body mass index (BMI) [Ratio] 42.6 kg/m2 42.6 k g/m2 eCW1 ([facility]) Systolic blood pressure 124 mm[Hg] 124 mm[Hg] e CW1 ([facility]) Diastolic blood pressure 76 mm[Hg] 76 mm[Hg] eCW1 ([facility]) Diastolic blood pressure 103 mm[Hg] 103 mm[Hg] eCW1 ([facility]) Body weight 265 [lb_av] 265 [lb_av] eCW1 ([facility]) Body height [in_i] eCW1 ([facility]) Body mass index (BMI) [Ratio] 44.09 kg/m2 44.09 kg/m2 eCW1 ([facility]) Heart rate 71 /min 71 /min eCW1 ([facility]) Respiratory rate 18 /min 18 /min eCW1 ([facility]) Body temperature 97.6 [degF] 97.6 [degF] eCW1 ( [facility]) Systolic blood pressure 165 mm[Hg] 165 mm[Hg] e CW1 ([facility]) Diastolic blood pressure 104 mm[Hg] 104 mm[Hg] JOHANA ([facility]) Body height 65 [in_i] 65 [in_i] JOHANA ([facility]) Body mass index (BMI) [Ratio] 44.8 kg/m2 44.8 k g/m2 JOHANA ([facility]) Systolic blood pressure 163 mm[Hg] 163 mm[Hg] A [facility] ([facility]) Body weight 4306 [oz_av] 4306 [oz_av] JOHANA ([facility]) Diastolic blood pressure 104 mm[Hg] 104 mm[Hg] JOHANA ([facility]) Body height 65 [in_i] 65 [in_i] JOHANA ([facility]) Body mass index (BMI) [Ratio] 44.8 kg/m2 44.8 k g/m2 JOHANA ([facility]) Systolic blood pressure 163 mm[Hg] 163 mm[Hg] A [facility] ([facility]) Body weight 4306 [oz_av] 4306 [oz_av] JOHANA ([facility]) Diastolic blood pressure 104 mm[Hg] 104 mm[Hg] JOHANA ([facility]) Body height 65 [in_i] 65 [in_i] JOHANA ([facility]) Body mass index (BMI) [Ratio] 44.8 kg/m2 44.8 k g/m2 JOHANA ([facility]) Systolic blood pressure 163 mm[Hg] 163 mm[Hg] A THENA ([facility]) Body weight 4306 [oz_av] 4306 [oz_av] JOHANA ([facility]) Diastolic blood pressure 104 mm[Hg] 104 mm[Hg] JOHANA ([facility]) Body height 65 [in_i] 65 [in_i] JOHANA ([facility]) Body mass index (BMI) [Ratio] 44.8 kg/m2 44.8 k g/m2 JOHANA ([facility]) Systolic blood pressure 163 mm[Hg] 163 mm[Hg] A THENA ([facility]) Body weight 4306 [oz_av] 4306 [oz_av] JOHANA ([facility]) Diastolic blood pressure 104 mm[Hg] 104 mm[Hg] JOHANA ([facility]) Body height 65 [in_i] 65 [in_i] JOHANA ([facility]) Body mass index (BMI) [Ratio] 44.8 kg/m2 44.8 k g/m2 JOHANA ([facility]) Systolic blood pressure 163 mm[Hg] 163 mm[Hg] A THENA ([facility]) Body weight 4306 [oz_av] 4306 [oz_av] JOHANA ([facility]) Body height 65 [in_i] 65 [in_i] JOHANA ([facility]) Body height 65 [in_i] 65 [in_i] JOHANA ([facility]) Body height 65 [in_i] 65 [in_i] JOHANA ([facility]) Body height 65 [in_i] 65 [in_i] JOHANA ([facility]) Body height 65 [in_i] 65 [in_i] JOHANA ([facility]) Body height 65 [in_i] 65 [in_i] JOHANA ([facility]) Diastolic blood pressure 81 mm[Hg] 81 mm[Hg] JOHANA ([facility]) Body height 65 [in_i] 65 [in_i] JOHANA ([facility]) Body mass index (BMI) [Ratio] 43.9 kg/m2 43.9 k g/m2 JOHANA ([facility]) Systolic blood pressure 127 mm[Hg] 127 mm[Hg] [facility] Body weight 4224 [oz_av] 4224 [oz_av] JOHANA ([facility]) Body height 65 [in_i] 65 [in_i] JOHANA ([facility]) Systolic blood pressure 127 mm[Hg] 127 mm[Hg] [facility]) Diastolic blood pressure 81 mm[Hg] 81 mm[Hg] JOHANA ([facility]) Body mass index (BMI) [Ratio] 43.9 kg/m2 43.9 k g/m2 JOHANA ([facility]) Body weight 4224 [oz_av] 4224 [oz_av] JOHANA ([facility]) Diastolic blood pressure 81 mm[Hg] 81 mm[Hg] JOHANA ([facility]) Body height 65 [in_i] 65 [in_i] JOHANA ([facility]) Body mass index (BMI) [Ratio] 43.9 kg/m2 43.9 k g/m2 JOHANA ([facility]) Systolic blood pressure 127 mm[Hg] 127 mm[Hg] A THENA ([facility]) Body weight 4224 [oz_av] 4224 [oz_av] JOHANA ([facility]) Diastolic blood pressure 81 mm[Hg] 81 mm[Hg] JOHANA ([facility]) Body height 65 [in_i] 65 [in_i] JOHANA ([facility]) Body mass index (BMI) [Ratio] 43.9 kg/m2 43.9 k g/m2 JOHANA ([facility]) Systolic blood pressure 127 mm[Hg] 127 mm[Hg] [facility]) Body weight 4224 [oz_av] 4224 [oz_av] JOHANA ([facility]) Diastolic blood pressure 81 mm[Hg] 81 mm[Hg] JOHANA ([facility]) Body height 65 [in_i] 65 [in_i] JOHANA ([facility]) Body mass index (BMI) [Ratio] 43.9 kg/m2 43.9 k g/m2 JOHANA ([facility]) Systolic blood pressure 127 mm[Hg] 127 mm[Hg] A THENA ([facility]) Body weight 4224 [oz_av] 4224 [oz_av] JOHANA ([facility]) Diastolic blood pressure 81 mm[Hg] 81 mm[Hg] JOHANA ([facility]) Body height 65 [in_i] 65 [in_i] JOHANA ([facility]) Body mass index (BMI) [Ratio] 43.9 kg/m2 43.9 k g/m2 JOHANA ([facility]) Systolic blood pressure 127 mm[Hg] 127 mm[Hg] A THENA ([facility]) Body weight 4224 [oz_av] 4224 [oz_av] JOHANA ([facility]) Diastolic blood pressure 81 mm[Hg] 81 mm[Hg] JOHANA ([facility]) Body height 65 [in_i] 65 [in_i] JOHANA ([facility]) Body mass index (BMI) [Ratio] 43.9 kg/m2 43.9 k g/m2 JOHANA ([facility]) Systolic blood pressure 127 mm[Hg] 127 mm[Hg] A THENA ([facility]) Body weight 4224 [oz_av] 4224 [oz_av] JOHANA ([facility]) Body temperature 97.1 [degF] 97.1 [degF] MEDENT ([facility] ) Body height 66 [in_i] 66 [in_i] MEDENT ([facility]) 5'6" Body weight 257.00 [lb_av] 257.00 [lb_av] MEDEN T ([facility]) Body mass index (BMI) [Ratio] 41.5 kg/m2 41.5 k g/m2 MEDENT ([facility]) Body mass index (BMI) [Ratio] 42.2 kg/m2 42.2 k g/m2 MEDENT ([facility]) Body temperature 97.5 [degF] 97.5 [degF] MEDENT ([facility]) Body height 66.75 [in_i] 66.75 [in_i] MEDENT ([facility]) 5'6.75" Body weight 267.38 [lb_av] 267.38 [lb_av] LINDA T ([facility]) Body height 65 [in_i] 65 [in_i] JOHANA ([facility]) Body mass index (BMI) [Ratio] 45.3 kg/m2 45.3 k g/m2 JOHANA ([facility]) Diastolic blood pressure 88 mm[Hg] 88 mm[Hg] JOHANA ([facility]) Systolic blood pressure 153 mm[Hg] 153 mm[Hg] [facility] Body weight 4358.4 [oz_av] 4358.4 [oz_av] ATHEN A ([facility]) Diastolic blood pressure 88 mm[Hg] 88 mm[Hg] JOHANA ([facility]) Body mass index (BMI) [Ratio] 45.3 kg/m2 45.3 k g/m2 JOHANA ([facility]) Body weight 4358.4 [oz_av] 4358.4 [oz_av] ATHEN A ([facility]) Body height 65 [in_i] 65 [in_i] JOHANA ([facility]) Systolic blood pressure 153 mm[Hg] 153 mm[Hg] [facility]) Diastolic blood pressure 88 mm[Hg] 88 mm[Hg] JOHANA ([facility]) Body height 65 [in_i] 65 [in_i] JOHANA ([facility]) Body mass index (BMI) [Ratio] 45.3 kg/m2 45.3 k g/m2 JOHANA ([facility]) Systolic blood pressure 153 mm[Hg] 153 mm[Hg] A THENA ([facility]) Body weight 4358.4 [oz_av] 4358.4 [oz_av] ATHEN A ([facility]) Diastolic blood pressure 88 mm[Hg] 88 mm[Hg] JOHANA ([facility]) Body height 65 [in_i] 65 [in_i] JOHANA ([facility]) Body mass index (BMI) [Ratio] 45.3 kg/m2 45.3 k g/m2 JOHANA ([facility]) Systolic blood pressure 153 mm[Hg] 153 mm[Hg] [facility]) Body weight 4358.4 [oz_av] 4358.4 [oz_av] ATHEN A ([facility]) Diastolic blood pressure 88 mm[Hg] 88 mm[Hg] JOHANA ([facility]) Body height 65 [in_i] 65 [in_i] JOHANA ([facility]) Body mass index (BMI) [Ratio] 45.3 kg/m2 45.3 k g/m2 JOHANA ([facility]) Systolic blood pressure 153 mm[Hg] 153 mm[Hg] [facility]) Body weight 4358.4 [oz_av] 4358.4 [oz_av] ATHEN A ([facility]) Body mass index (BMI) [Ratio] 45.3 kg/m2 45.3 k g/m2 JOHANA ([facility]) Systolic blood pressure 153 mm[Hg] 153 mm[Hg] [facility]) Body weight 4358.4 [oz_av] 4358.4 [oz_av] ATHEN A ([facility]) Diastolic blood pressure 88 mm[Hg] 88 mm[Hg] JOHANA ([facility]) Body height 65 [in_i] 65 [in_i] JOHANA ([facility]) Diastolic blood pressure 88 mm[Hg] 88 mm[Hg] JOHANA ([facility]) Body height 65 [in_i] 65 [in_i] JOHANA ([facility]) Body mass index (BMI) [Ratio] 45.3 kg/m2 45.3 k g/m2 JOHANA ([facility]) Systolic blood pressure 153 mm[Hg] 153 mm[Hg] [facility]) Body weight 4358.4 [oz_av] 4358.4 [oz_av] ATHEN A ([facility]) Diastolic blood pressure 88 mm[Hg] 88 mm[Hg] JOHANA ([facility]) Body height 65 [in_i] 65 [in_i] JOHANA ([facility]) Body mass index (BMI) [Ratio] 45.3 kg/m2 45.3 k g/m2 JOHANA ([facility]) Systolic blood pressure 153 mm[Hg] 153 mm[Hg] A THENA ([facility]) Body weight 4358.4 [oz_av] 4358.4 [oz_av] ATHEN A ([facility]) Body weight 258.2 [lb_av] 258.2 [lb_av] eCW1 ([facility]) Body height [in_i] eCW1 ([facility]) Body mass index (BMI) [Ratio] 42.96 kg/m2 42.96 kg/m2 eCW1 ([facility]) Heart rate 77 /min 77 /min eCW1 ([facility]) Respiratory rate 18 /min 18 /min eCW1 ([facility]) Body temperature 96.2 [degF] 96.2 [degF] eCW1 ( [facility]) Systolic blood pressure 138 mm[Hg] 138 mm[Hg] e CW1 ([facility]) Diastolic blood pressure 87 mm[Hg] 87 mm[Hg] eCW1 ([facility]) Body height 65 [in_i] 65 [in_i] KAMILLE ([facility], ) 5'5" Body weight 260.00 [lb_av] 260.00 [lb_av] MEDEN T ([facility], ) Body mass index (BMI) [Ratio] 43.3 kg/m2 43.3 k g/m2 MEDDIONNE ([facility], ) [place] body weight 125 [lb_av] 125 [lb_av] MEDEN T ([facility], ) Body weight 117.936 kg 117.936 kg [facility], ) Body surface area Derived from formula 2.21 m2 2.21 m2 [facility], ) Body weight 260 [lb_av] 260 [lb_av] eCW1 ([facility]) Body weight 117.93 kg 117.93 kg eCW1 ([facility]) Body height [in_i] eCW1 ([facility]) Body mass index (BMI) [Ratio] 43.26 kg/m2 43.26 kg/m2 eCW1 ([facility]) Systolic blood pressure 130 mm[Hg] 130 mm[Hg] e CW1 ([facility]) Diastolic blood pressure 84 mm[Hg] 84 mm[Hg] eCW1 ([facility]) Diastolic blood pressure 84 mm[Hg] 84 mm[Hg] JOHANA ([facility]) Body height 65 [in_i] 65 [in_i] JOHANA ([facility]) Body mass index (BMI) [Ratio] 42.9 kg/m2 42.9 k g/m2 JOHANA ([facility]) Systolic blood pressure 126 mm[Hg] 126 mm[Hg] A [facility] ([facility]) Body weight 4128 [oz_av] 4128 [oz_av] JOHANA ([facility]) Diastolic blood pressure 84 mm[Hg] 84 mm[Hg] JOHANA ([facility]) Body mass index (BMI) [Ratio] 42.9 kg/m2 42.9 k g/m2 JOHANA ([facility]) Systolic blood pressure 126 mm[Hg] 126 mm[Hg] [facility]) Body weight 4128 [oz_av] 4128 [oz_av] JOHANA ([facility]) Body height 65 [in_i] 65 [in_i] JOHANA ([facility]) Diastolic blood pressure 84 mm[Hg] 84 mm[Hg] JOHANA ([facility]) Body height 65 [in_i] 65 [in_i] JOHANA ([facility]) Body mass index (BMI) [Ratio] 42.9 kg/m2 42.9 k g/m2 JOHANA ([facility]) Systolic blood pressure 126 mm[Hg] 126 mm[Hg] A [facility] ([facility]) Body weight 4128 [oz_av] 4128 [oz_av] JOHANA ([facility]) Systolic blood pressure 126 mm[Hg] 126 mm[Hg] [facility]) Body weight 4128 [oz_av] 4128 [oz_av] JOHANA ([facility]) Diastolic blood pressure 84 mm[Hg] 84 mm[Hg] JOHANA ([facility]) Body height 65 [in_i] 65 [in_i] JOHANA ([facility]) Body mass index (BMI) [Ratio] 42.9 kg/m2 42.9 k g/m2 JOHANA ([facility]) Diastolic blood pressure 84 mm[Hg] 84 mm[Hg] JOHANA ([facility]) Body height 65 [in_i] 65 [in_i] JOHANA ([facility]) Body mass index (BMI) [Ratio] 42.9 kg/m2 42.9 k g/m2 JOHANA ([facility]) Systolic blood pressure 126 mm[Hg] 126 mm[Hg] [facility]) Body weight 4128 [oz_av] 4128 [oz_av] JOHANA ([facility]) Diastolic blood pressure 84 mm[Hg] 84 mm[Hg] JOHANA ([facility]) Body height 65 [in_i] 65 [in_i] JOHANA ([facility]) Body mass index (BMI) [Ratio] 42.9 kg/m2 42.9 k g/m2 JOHANA ([facility]) Systolic blood pressure 126 mm[Hg] 126 mm[Hg] A THENA ([facility]) Body weight 4128 [oz_av] 4128 [oz_av] JOHANA ([facility]) Diastolic blood pressure 84 mm[Hg] 84 mm[Hg] JOHANA ([facility]) Body height 65 [in_i] 65 [in_i] JOHANA ([facility]) Body mass index (BMI) [Ratio] 42.9 kg/m2 42.9 k g/m2 JOHANA ([facility]) Systolic blood pressure 126 mm[Hg] 126 mm[Hg] A [facility] ([facility]) Body weight 4128 [oz_av] 4128 [oz_av] JOHANA ([facility]) Diastolic blood pressure 84 mm[Hg] 84 mm[Hg] JOHANA ([facility]) Body height 65 [in_i] 65 [in_i] JOHANA ([facility]) Body mass index (BMI) [Ratio] 42.9 kg/m2 42.9 k g/m2 JOHANA ([facility]) Systolic blood pressure 126 mm[Hg] 126 mm[Hg] A [facility] ([facility]) Body weight 4128 [oz_av] 4128 [oz_av] JOHANA ([facility]) Systolic blood pressure 126 mm[Hg] 126 mm[Hg] A THENA ([facility]) Body weight 4128 [oz_av] 4128 [oz_av] JOHANA ([facility]) Diastolic blood pressure 84 mm[Hg] 84 mm[Hg] JOHANA ([facility]) Body height 65 [in_i] 65 [in_i] JOHANA ([facility]) Body mass index (BMI) [Ratio] 42.9 kg/m2 42.9 k g/m2 JOHANA ([facility]) Body height 0.00 in Normal (applies to non-numeric resu lts) 0.00 in [facility] ([facility]) Body weight Measured 0.00 lbs Normal (applies to n on-numeric results) 0.00 lbs [facility] ([facility]) Body mass index (BMI) [Ratio] 0.00 kg/m2 No rmal (applies to non-numeric results) 0.00 kg/m2 [facility] ([facility]) Systolic blood pressure 0 mm[Hg] Normal (applies t o non-numeric results) 0 mm[Hg] [facility] ([facility]) Diastolic blood pressure 0 mm[Hg] Normal (applies to non-numeric results) 0 mm[Hg] [facility] ([facility]) Body weight 256 [lb_av] 256 [lb_av] eCW1 ([facility]) Body height [in_i] eCW1 ([facility]) Body mass index (BMI) [Ratio] 42.60 kg/m2 42.60 kg/m2 eCW1 ([facility]) Heart rate 98 /min 98 /min eCW1 ([facility]) Respiratory rate 16 /min 16 /min eCW1 ([facility]) Body temperature 98.1 [degF] 98.1 [degF] eCW1 ( [facility]) Systolic blood pressure 142 mm[Hg] 142 mm[Hg] e CW1 ([facility]) Diastolic blood pressure 81 mm[Hg] 81 mm[Hg] eCW1 ([facility]) Body height 0.00 in Normal (applies to non-numeric resu lts) 0.00 in [facility] ([facility]) Body weight Measured 0.00 lbs Normal (applies to n on-numeric results) 0.00 lbs [facility] ([facility]) Body mass index (BMI) [Ratio] 0.00 kg/m2 No rmal (applies to non-numeric results) 0.00 kg/m2 [facility] ([facility]) Systolic blood pressure 0 mm[Hg] Normal (applies t o non-numeric results) 0 mm[Hg] [facility] ([facility]) Diastolic blood pressure 0 mm[Hg] Normal (applies to non-numeric results) 0 mm[Hg] [facility] ([facility]) Body height 65 [in_i] 65 [in_i] MEDENT ([facility] 5'5" Body weight 252.00 [lb_av] 252.00 [lb_av] MEDEN T ([facility] Systolic blood pressure 111 mm[Hg] 111 mm[Hg] M EDENT ([facility] Diastolic blood pressure 80 mm[Hg] 80 mm[Hg] MEDENT ([facility] Heart rate 63 /min 63 /min MEDENT ([facility] Body mass index (BMI) [Ratio] 41.9 kg/m2 41.9 k g/m2 MEDENT ([facility] Body weight 247.4 [lb_av] 247.4 [lb_av] eCW1 ([facility]) Body height [in_i] eCW1 ([facility]) Body mass index (BMI) [Ratio] 41.17 kg/m2 41.17 kg/m2 eCW1 ([facility]) Heart rate 77 /min 77 /min eCW1 ([facility]) Respiratory rate 18 /min 18 /min eCW1 ([facility]) Body temperature 96.2 [degF] 96.2 [degF] eCW1 ( [facility]) Systolic blood pressure 136 mm[Hg] 136 mm[Hg] e CW1 ([facility]) Diastolic blood pressure 86 mm[Hg] 86 mm[Hg] eCW1 ([facility]) Diastolic blood pressure 80 mm[Hg] 80 mm[Hg] MEDENT ([facility] Heart rate 63 /min 63 /min MEDENT ([facility] Body mass index (BMI) [Ratio] 41.9 kg/m2 41.9 k g/m2 MEDENT ([facility] Body height 65 [in_i] 65 [in_i] MEDENT ([facility] 5'5" Body weight 252.00 [lb_av] 252.00 [lb_av] MEDEN T ([facility] Systolic blood pressure 111 mm[Hg] 111 mm[Hg] M EDENT ([facility] Diastolic blood pressure 80 mm[Hg] 80 mm[Hg] JOHANA ([facility]) Body height 65 [in_i] 65 [in_i] JOHANA ([facility]) Body mass index (BMI) [Ratio] 42.09 kg/m2 42.09 kg/m2 JOHANA ([facility]) Systolic blood pressure 111 mm[Hg] 111 mm[Hg] [facility] Body weight 4032 [oz_av] 4032 [oz_av] JOHANA ([facility]) Diastolic blood pressure 80 mm[Hg] 80 mm[Hg] JOHANA ([facility]) Systolic blood pressure 111 mm[Hg] 111 mm[Hg] [facility]) Body mass index (BMI) [Ratio] 42.09 kg/m2 42.09 kg/m2 JOHANA ([facility]) Body weight 4032 [oz_av] 4032 [oz_av] JOHANA ([facility]) Body height 65 [in_i] 65 [in_i] JOHANA ([facility]) Diastolic blood pressure 80 mm[Hg] 80 mm[Hg] JOHANA ([facility]) Body height 65 [in_i] 65 [in_i] JOHANA ([facility]) Body mass index (BMI) [Ratio] 42.09 kg/m2 42.09 kg/m2 JOHANA ([facility]) Systolic blood pressure 111 mm[Hg] 111 mm[Hg] [facility] Body weight 4032 [oz_av] 4032 [oz_av] JOHANA ([facility]) Diastolic blood pressure 80 mm[Hg] 80 mm[Hg] JOHANA ([facility]) Body height 65 [in_i] 65 [in_i] JOHANA ([facility]) Body mass index (BMI) [Ratio] 42.09 kg/m2 42.09 kg/m2 JOHANA ([facility]) Systolic blood pressure 111 mm[Hg] 111 mm[Hg] [facility]) Body weight 4032 [oz_av] 4032 [oz_av] JOHANA ([facility]) Diastolic blood pressure 80 mm[Hg] 80 mm[Hg] JOHANA ([facility]) Body height 65 [in_i] 65 [in_i] JOHANA ([facility]) Body mass index (BMI) [Ratio] 42.09 kg/m2 42.09 kg/m2 JOHANA ([facility]) Systolic blood pressure 111 mm[Hg] 111 mm[Hg] A THENA ([facility]) Body weight 4032 [oz_av] 4032 [oz_av] JOHANA ([facility]) Diastolic blood pressure 80 mm[Hg] 80 mm[Hg] JOHANA ([facility]) Body height 65 [in_i] 65 [in_i] JOHANA ([facility]) Body mass index (BMI) [Ratio] 42.09 kg/m2 42.09 kg/m2 JOHANA ([facility]) Systolic blood pressure 111 mm[Hg] 111 mm[Hg] A THENA ([facility]) Body weight 4032 [oz_av] 4032 [oz_av] JOHANA ([facility]) Diastolic blood pressure 80 mm[Hg] 80 mm[Hg] JOHANA ([facility]) Body height 65 [in_i] 65 [in_i] JOHANA ([facility]) Body mass index (BMI) [Ratio] 42.09 kg/m2 42.09 kg/m2 JOHANA ([facility]) Systolic blood pressure 111 mm[Hg] 111 mm[Hg] A THENA ([facility]) Body weight 4032 [oz_av] 4032 [oz_av] JOHANA ([facility]) Diastolic blood pressure 80 mm[Hg] 80 mm[Hg] JOHANA ([facility]) Body height 65 [in_i] 65 [in_i] JOHANA ([facility]) Body mass index (BMI) [Ratio] 42.09 kg/m2 42.09 kg/m2 JOHANA ([facility]) Systolic blood pressure 111 mm[Hg] 111 mm[Hg] A THENA ([facility]) Body weight 4032 [oz_av] 4032 [oz_av] JOHANA ([facility]) Diastolic blood pressure 80 mm[Hg] 80 mm[Hg] JOHANA ([facility]) Body height 65 [in_i] 65 [in_i] JOHANA ([facility]) Body mass index (BMI) [Ratio] 42.09 kg/m2 42.09 kg/m2 JOHANA ([facility]) Systolic blood pressure 111 mm[Hg] 111 mm[Hg] Ricardo THENA ([facility]) Body weight 4032 [oz_av] 4032 [oz_av] JOHANA ([facility]) Body height 0.00 in Normal (applies to non-numeric resu lts) 0.00 in [facility] ([facility]) Body weight Measured 0.00 lbs Normal (applies to n on-numeric results) [facility] Body mass index (BMI) [Ratio] 0.00 kg/m2 No rmal (applies to non-numeric results) 0.00 [facility] Systolic blood pressure 0 mm[Hg] Normal (applies t o non-numeric results) 0 mm[Hg] [facility] ([facility]) Diastolic blood pressure 0 mm[Hg] Normal (applies to non-numeric results) 0 mm[Hg] [facility] ([facility]) Patient Treatment Plan of Care Planned Activity Planned Date Details Description Data Source (s) 24 HR mirabegron 50 MG Extended Release Oral Tablet [M yrbetriq] 05/03/2021 12:00:00 AM EDT eCW1 ([facility]) 24 HR mirabegron 50 MG Extended Release Oral Tablet [M yrbetriq] 05/03/2021 12:00:00 AM EDT eCW1 ([facility]) 24 HR mirabegron 50 MG Extended Release Oral Tablet [M yrbetriq] 05/03/2021 12:00:00 AM EDT eCW1 ([facility]) Acetaminophen 325 MG / Hydrocodone Bitartrate 5 MG Ora l Tablet 11/27/2020 12:00:00 AM EDT eCW1 ([facility]) Acetaminophen 325 MG / Hydrocodone Bitartrate 5 MG Ora l Tablet 11/27/2020 12:00:00 AM EDT eCW1 ([facility]) Acetaminophen 325 MG / Hydrocodone Bitartrate 5 MG Ora l Tablet 11/27/2020 12:00:00 AM EDT eCW1 ([facility]) Acetaminophen 325 MG / Hydrocodone Bitartrate 5 MG Ora l Tablet 11/02/2020 12:00:00 AM EST eCW1 ([facility]) Acetaminophen 325 MG / Hydrocodone Bitartrate 5 MG Ora l Tablet [[place]] 10/12/2020 12:00:00 AM EST eCW1 ([facility]) [place] 5-325 MG 10/12/2020 12:00:00 AM EST eCW1 ([facility]) 168 HR Buprenorphine 0.005 MG/HR Transdermal Patch [Bu Trans] 09/29/2020 12:00:00 AM EST eCW1 ([facility]) 168 HR Buprenorphine 0.005 MG/HR Transdermal Patch [Bu Trans] 09/29/2020 12:00:00 AM EST eCW1 ([facility]) 168 HR Buprenorphine 0.005 MG/HR Transdermal Patch [Bu Trans] 09/29/2020 12:00:00 AM EST eCW1 ([facility]) Hydrochlorothiazide 25 MG / Triamterene 37.5 MG Oral Tablet JOHANA ([facility]) tizanidine 4 MG Oral Tablet JOHANA ([facility]) quetiapine 50 MG Oral Tablet JOHANA ([facility]) quetiapine 100 MG Oral Tablet JOHANA ([facility]) oxcarbazepine 150 MG Oral Tablet JOHANA ([facility]) 12 HR Orphenadrine Citrate 100 MG Extended Release Oral Tablet JOHANA ([facility]) methylprednisolone 4 mg tablets in a dose pack TAKE BY MOUTH DIR ECTED JOHANA ([facility]) Levothyroxine Sodium 0.075 MG Oral Tablet JOHANA ([facility]) Lasix JOHANA ([facility]) 24 HR lamotrigine 100 MG Extended Release Oral Tablet JOHANA ([facility]) Acetaminophen 325 MG / Hydrocodone Bitartrate 5 MG Oral Tablet J[facility] ([facility] [facility]) fluticasone propionate 50 mcg/actuation nasal spray,suspension JOHANA ([facility]) Fluoxetine 10 MG Oral Capsule JOHANA ([facility]) apixaban 5 MG Oral Tablet [Eliquis] JOHANA ([facility]) Dexamethasone 4 MG Oral Tablet JOHANA ([facility]) benzonatate 100 MG Oral Capsule JOHANA ([facility]) Baclofen 10 MG Oral Tablet A THENA ([facility]) Hydrochlorothiazide 25 MG / Triamterene 37.5 MG Oral Tablet JOHANA ([facility]) tizanidine 4 MG Oral Tablet JOHANA ([facility]) quetiapine 50 MG Oral Tablet JOHANA ([facility]) oxcarbazepine 150 MG Oral Tablet JOHANA ([facility]) 12 HR Orphenadrine Citrate 100 MG Extended Release Oral Tablet JOHANA ([facility]) methylprednisolone 4 mg tablets in a dose pack TAKE BY MOUTH DIR ECTED JOHANA ([facility]) 24 HR lamotrigine 100 MG Extended Release Oral Tablet JOHANA ([facility]) Acetaminophen 325 MG / Hydrocodone Bitartrate 5 MG Oral Tablet JOHANA ([facility]) fluticasone propionate 50 mcg/actuation nasal spray,suspension JOHANA ([facility]) apixaban 5 MG Oral Tablet [Eliquis] JOHANA ([facility]) Dexamethasone 4 MG Oral Tablet JOHANA ([facility]) benzonatate 100 MG Oral Capsule JOHANA ([facility]) Baclofen 10 MG Oral Tablet A THENA ([facility]) fluticasone propionate 50 mcg/actuation nasal spray,suspension JOHANA ([facility]) apixaban 5 MG Oral Tablet [Eliquis] JOHANA ([facility]) Dexamethasone 4 MG Oral Tablet JOHANA ([facility]) benzonatate 100 MG Oral Capsule JOHANA ([facility]) Baclofen 10 MG Oral Tablet A THENA ([facility]) Hydrochlorothiazide 25 MG / Triamterene 37.5 MG Oral Tablet JOHANA ([facility]) tizanidine 4 MG Oral Tablet JOHANA ([facility]) quetiapine 50 MG Oral Tablet JOHANA ([facility]) oxcarbazepine 150 MG Oral Tablet JOHANA ([facility]) 12 HR Orphenadrine Citrate 100 MG Extended Release Oral Tablet JOHANA ([facility]) methylprednisolone 4 mg tablets in a dose pack TAKE BY MOUTH DIR ECTED JOHANA ([facility]) Levothyroxine Sodium 0.075 MG Oral Tablet JOHANA ([facility]) 24 HR lamotrigine 100 MG Extended Release Oral Tablet JOHANA ([facility]) Acetaminophen 325 MG / Hydrocodone Bitartrate 5 MG Oral Tablet JOHANA ([facility]) fluticasone propionate 50 mcg/actuation nasal spray,suspension JOHANA ([facility]) apixaban 5 MG Oral Tablet [Eliquis] JOHANA ([facility]) Dexamethasone 4 MG Oral Tablet JOHANA ([facility]) benzonatate 100 MG Oral Capsule JOHANA ([facility]) Baclofen 10 MG Oral Tablet A THENA ([facility]) tizanidine 4 MG Oral Tablet JOHANA ([facility]) quetiapine 50 MG Oral Tablet JOHANA ([facility]) oxcarbazepine 150 MG Oral Tablet JOHANA ([facility]) 24 HR lamotrigine 100 MG Extended Release Oral Tablet JOHANA ([facility]) fluticasone propionate 50 mcg/actuation nasal spray,suspension JOHANA ([facility]) Dexamethasone 4 MG Oral Tablet JOHANA ([facility]) benzonatate 100 MG Oral Capsule JOHANA ([facility]) Baclofen 10 MG Oral Tablet A THENA ([facility]) tizanidine 4 MG Oral Tablet JOHANA ([facility]) quetiapine 50 MG Oral Tablet JOHANA ([facility]) oxcarbazepine 150 MG Oral Tablet JOHANA ([facility]) 12 HR Orphenadrine Citrate 100 MG Extended Release Oral Tablet JOHANA ([facility]) methylprednisolone 4 mg tablets in a dose pack TAKE BY MOUTH DIR ECTED JOHANA ([facility]) 24 HR lamotrigine 100 MG Extended Release Oral Tablet JOHANA ([facility]) Acetaminophen 325 MG / Hydrocodone Bitartrate 5 MG Oral Tablet JOHANA ([facility]) fluticasone propionate 50 mcg/actuation nasal spray,suspension JOHANA ([facility]) apixaban 5 MG Oral Tablet [Eliquis] JOHANA ([facility]) Dexamethasone 4 MG Oral Tablet JOHANA ([facility]) benzonatate 100 MG Oral Capsule JOHANA ([facility]) Baclofen 10 MG Oral Tablet A THENA ([facility]) Hydrochlorothiazide 25 MG / Triamterene 37.5 MG Oral Tablet JOHANA ([facility]) tizanidine 4 MG Oral Tablet JOHANA ([facility]) quetiapine 50 MG Oral Tablet JOHANA ([facility]) oxcarbazepine 150 MG Oral Tablet JOHANA ([facility]) 12 HR Orphenadrine Citrate 100 MG Extended Release Oral Tablet JOHANA ([facility]) methylprednisolone 4 mg tablets in a dose pack TAKE BY MOUTH DIR ECTED JOHANA ([facility]) 24 HR lamotrigine 100 MG Extended Release Oral Tablet JOHANA ([facility]) Acetaminophen 325 MG / Hydrocodone Bitartrate 5 MG Oral Tablet JOHANA ([facility]) tizanidine 4 MG Oral Tablet JOHANA ([facility]) quetiapine 50 MG Oral Tablet JOHANA ([facility]) oxcarbazepine 150 MG Oral Tablet JOHANA ([facility]) 24 HR lamotrigine 100 MG Extended Release Oral Tablet JOHANA ([facility]) fluticasone propionate 50 mcg/actuation nasal spray,suspension JOHANA ([facility]) Dexamethasone 4 MG Oral Tablet JOHANA ([facility]) benzonatate 100 MG Oral Capsule JOHANA ([facility]) Baclofen 10 MG Oral Tablet A THENA ([facility]) Hydrochlorothiazide 25 MG / Triamterene 37.5 MG Oral Tablet JOHANA ([facility]) tizanidine 4 MG Oral Tablet JOHANA ([facility]) quetiapine 50 MG Oral Tablet JOHANA ([facility]) oxcarbazepine 150 MG Oral Tablet JOHANA ([facility]) 24 HR lamotrigine 100 MG Extended Release Oral Tablet JOHANA ([facility]) fluticasone propionate 50 mcg/actuation nasal spray,suspension JOHANA ([facility]) Dexamethasone 4 MG Oral Tablet JOHANA ([facility]) benzonatate 100 MG Oral Capsule JOHANA ([facility]) Baclofen 10 MG Oral Tablet A THENA ([facility]) tizanidine 4 MG Oral Tablet JOHANA ([facility]) quetiapine 50 MG Oral Tablet JOHANA ([facility]) oxcarbazepine 150 MG Oral Tablet JOHANA ([facility]) 24 HR lamotrigine 100 MG Extended Release Oral Tablet JOHANA ([facility]) fluticasone propionate 50 mcg/actuation nasal spray,suspension JOHANA ([facility]) Dexamethasone 4 MG Oral Tablet JOHANA ([facility]) benzonatate 100 MG Oral Capsule JOHANA ([facility]) Baclofen 10 MG Oral Tablet A THENA ([facility])
[2021-08-04 17:46] LABS: BASO % 0.4 % (0.0-1.0); EOS # 0.2 10^3/uL (0.0-0.5); EOS % 1.8 % (0.0-3.0); HEMATOCRIT 41.3 % (36.0-47.0); HEMOGLOBIN 13.2 g/dl (12.0-15.5); LYMPH # 2.1 10^3/uL (1.5-5.0); LYMPH % 19.7 % (24.0-44.0); MEAN CORPUSCULAR HEMOGLOBIN 28.7 pg (27.0-33.0); MEAN CORPUSCULAR VOLUME 89.8 fl (80.0-96.0); MONO # 0.7 10^3/uL (0.0-0.8); MONO % 6.3 % (2.0-8.0); NEUTROPHILS # 7.6 10^3/uL (1.5-8.5); NEUTROPHILS % 71.3 % (36.0-66.0); PLATELET COUNT, AUTOMATED 293 10^3/uL (150-450); WHITE BLOOD COUNT 10.6 10^3/uL (4.0-10.0)
[2021-08-04 18:05] LABS: ERYTHROCYTE SEDIMENTATION RATE 10 mm/hr (0-20)
[2021-08-04 18:06] LABS: BLOOD UREA NITROGEN 13 MG/DL (7-18); C REACTIVE PROTEIN QUANTITATIV 0.42 MG/DL (0.00-0.30); CALCIUM LEVEL 8.5 MG/DL (8.5-10.1); CARBON DIOXIDE LEVEL 29 MEQ/L (21-32); CHLORIDE LEVEL 106 MEQ/L (98-107); CREATININE FOR GFR 0.82 MG/DL (0.55-1.30); GLOMERULAR FILTRATION RATE > 60.0 (>58); GLUCOSE, FASTING 81 MG/DL (70-100); POTASSIUM SERUM 3.3 MEQ/L (3.5-5.1); SODIUM LEVEL 141 MEQ/L (136-145); URIC ACID 4.9 MG/DL (2.6-6.0)
--- OUTSIDE RECORDS SUMMARY | 2021-08-04 18:18 | CCD ---
Author Author [facility] Organization [facility] Address Unknown Phone Unavailable Support Name Relationship Address Phone ULI JACKSON Next Of Kin [address] [place] [phone] DISABLED Next Of Kin Unknown Unavailable Greg Martin Next Of Kin Unknown Unavailable Doris Garcia Next Of Kin [address] [place] [phone] GREG JACKSON Next Of Kin [address] [place] [address] Isamar Rudolph Next Of Kin [address] [place] [address] Nasreen Adams MD Next Of Kin [address] [place] [phone] Elizabeth Mcrae DDS Next Of Kin [address] [place] [address] [phone] Ina Stephenson DO Next Of Kin [address] [place] [address] UNEMPLOYED Next Of Kin UE UE, UE UE ISAMAR LUGO Next Of Kin [address] [place] [address] UN Next Of Kin Unknown Unavailable UE Next Of Kin Unknown Unavailable ST Next Of Kin Unknown Unavailable [place] [address] NASREEN SANABRIA Next Of Kin [address] [place] [address] ALLMETROHL Next Of Kin [address] [place] [address] ULI JACKSON ECON [address] [place] [address] Unavailable ISAMAR LUGO ECON [address] [place] [phone] Unavailable greg reagan ECON [address] [place] [address] [phone] Care Team Providers Care Artists' Model Name Role Phone Laina Adams MD Unavailable [...] Unavailable Unavailable Laina Adams MD Unavailable Unavailable Lania Adams MD Unavailable Unavailable Laina Adams MD [...] Laina Adams MD Unavailable Unavailable Doris Man CROSS COUNTRY/TRACK AND FIELD COACH CROSS COUNTRY/TRACK AND FIELD COACH Unavailable Unavailable Rizwan Caro MD Unavailable Unavailable Rizwan Caro MD Unavailable Unavailable Rizwan Caro MD Unavailable Unavailable Rizwan Caro MD Unavailable Unavailable Rizwan Caro MD Unavailable Unavailable Rizwan Caro MD Unavailable Unavailable Rizwan Caro MD Unavailable Unavailable Rizwan Caro MD Unavailable Unavailable Rizwan Caro MD Unavailable Unavailable Rizwan Caro MD Unavailable Unavailable Rizwan Caro MD Unavailable Unavailable Chad Pantoja THERAPEUTIC RECREATION LEADER Unavailable Unavailable Chad Pantoja THERAPEUTIC RECREATION LEADER Unavailable Unavailable Chad Pantoja THERAPEUTIC RECREATION LEADER Unavailable Unavailable Candis Wang Unavailable [phone] Chad GRIDERW DPM Unavailable Unavailable MAJAK, R [...] Unavailable Nayeli Calabrese Unavailable Man, F Doris CROSS COUNTRY/TRACK AND FIELD COACH-BC Unavailable Unavailable Man, F Doris CROSS COUNTRY/TRACK AND FIELD COACH-BC Unavailable Unavailable Man, F Doris CROSS COUNTRY/TRACK AND FIELD COACH-BC Unavailable Unavailable Man, F Doris CROSS COUNTRY/TRACK AND FIELD COACH-BC Unavailable Unavailable Man, F Doris CROSS COUNTRY/TRACK AND FIELD COACH-BC Unavailable Unavailable Man, F Doris CROSS COUNTRY/TRACK AND FIELD COACH-BC Unavailable Unavailable Man, F Doris CROSS COUNTRY/TRACK AND FIELD COACH-BC Unavailable Unavailable Man, F Doris CROSS COUNTRY/TRACK AND FIELD COACH-BC Unavailable Unavailable Man, F Doris CROSS COUNTRY/TRACK AND FIELD COACH-BC Unavailable Unavailable Man, F Doris CROSS COUNTRY/TRACK AND FIELD COACH-BC Unavailable Unavailable Man, F Doris CROSS COUNTRY/TRACK AND FIELD COACH-BC Unavailable Unavailable Man, F Doris CROSS COUNTRY/TRACK AND FIELD COACH-BC Unavailable Unavailable Man, F Doris CROSS COUNTRY/TRACK AND FIELD COACH-BC Unavailable Unavailable Man, F Doris CROSS COUNTRY/TRACK AND FIELD COACH-BC Unavailable Unavailable Man, F Doris CROSS COUNTRY/TRACK AND FIELD COACH-BC Unavailable Unavailable Man, F Doris CROSS COUNTRY/TRACK AND FIELD COACH-BC Unavailable Unavailable Man, F Doris CROSS COUNTRY/TRACK AND FIELD COACH-BC Unavailable Unavailable Man, F Doris CROSS COUNTRY/TRACK AND FIELD COACH-BC Unavailable Unavailable Man, F Doris CROSS COUNTRY/TRACK AND FIELD COACH-BC Unavailable Unavailable Man, F Drois CROSS COUNTRY/TRACK AND FIELD COACH-BC Unavailable Unavailable Man, F Doris CROSS COUNTRY/TRACK AND FIELD COACH-BC Unavailable Unavailable Man, F Doris CROSS COUNTRY/TRACK AND FIELD COACH-BC Unavailable Unavailable Man, F Doris CROSS COUNTRY/TRACK AND FIELD COACH-BC Unavailable Unavailable Re-disclosure Warning The records that [...] is protected by Article 27-F of the [place] State Public Health law. If you continue you may have access to information: Regarding HIV / AIDS; Provided by facilities licensed or operated by the [facility] Office of Mental Health; or Provided by the [facility] Office for People With Developmental Disabilities. If such information is present, then the following [facility] mandated warning applies: This information has been [...] law may result in a fine or senior living sentence or both. A general authorization for the release of medical or other information is NOT sufficient authorization for further disc losure. Allergies and Adverse Reactions Type Description Substance Reaction Status Data Source(s ) Propensity to adverse reactions to substance Penicillins Pen icillins Anaphylaxis Severe Active [facility] ([facility]) Propensity to adverse reactions to substance trazodone Trazodone Hydrochloride 50 MG Oral Tablet Active [facility] ([facility]) Family History Family Member Name Family Member Gender Family Member Status Date o f Status Description Data Source(s) Unknown Unknown Problem [facility] ([facility] ) Unknown Unknown Problem [facility] ([facility] ) Unknown Unknown Problem [facility] ([facility] ) Unknown Unknown Problem [facility] ([facility] ) Unknown Unknown Problem [facility] ([facility], ) Unknown Unknown Problem [facility] ([facility] ) Encounters Encounter Providers Location Date Indications Data Source(s ) Nasreen Adams MD: [address] [place] [address], Ph. Attender: Nasreen Adams MD [facility] Medical 07/11/2021 12:00:00 AM EDT JOHANA ([facility]) Nasreen Adams MD: [address] [place] [address], Ph. Attender: Nasreen Adams MD [facility] Medical 06/21/2021 12:00:00 AM EDT JOHANA ([facility]) Nasreen Adams MD: [address] [place] [address], Ph. Attender: Nasreen Adams MD [facility] Medical 06/21/2021 12:00:00 AM EDT JOHANA ([facility]) Candis Wang [facility] [place] [place]: [address] [place] [address], Ph. Attender: Candis Wang [facility] Medical 06/08/2021 12:00:00 AM EDT JOHANA ([facility]) Candisbrittaney Wang [facility] [place] [place]: [address] [place] [address], Ph. Attender: Candis Wang [facility] Medical 06/08/2021 12:00:00 AM EDT JOHANA ([facility]) Candis Isarivera [facility] [place] [place]: [address] [place] [address], Ph. Attender: Candis Wang [facility] Medical 06/08/2021 12:00:00 AM EDT JOHANA ([facility]) Unknown [address] [facility] [address] 05/28/2021 12:00:00 AM EDT [facility] Unknown [address] [facility] [address] 05/24/2021 12:00:00 AM EDT [facility]CW[facility]) Candis Isarivera [facility] [place] [place]: [address] [place] [address], Ph. Attender: Candis Wang [facility] Medical 05/22/2021 12:00:00 AM EDT JOHANA ([facility]) Candis Wang [facility] [place] [place]: [address] [place] [address], Ph. Attender: Candis Wang [facility] Medical 05/22/2021 12:00:00 AM EDT [place] ([facility]) Candis Wang, [facility] [place] [place]: [address] [place] [address], Ph. Attender: Candis Wang [facility] Medical 05/22/2021 12:00:00 AM EDT [place] ([facility]) Candis Wang, [facility] [place] [place]: [address] [place] [address], Ph. Attender: Candis Wang [facility] Medical 05/22/2021 12:00:00 AM EDT [facility]) Candis Wang, [facility] [place] [place]: [address] [place] [address], Ph. Attender: Candis Wang [facility] Medical 05/08/2021 12:00:00 AM EDT [place] ([facility]) Candis Wang, [facility] [place] [place]: [address] [place] [address], Ph. Attender: Candis Wang [facility] Medical 05/08/2021 12:00:00 AM EDT [place] ([facility]) [facility] [address] [place] [address], Ph. Attender: Candis Wang [facility] Medical 05/08/2021 12:00:00 AM EDT [place] ([facility]) [facility] [address] [place] [address], Ph. Attender: Candis Wang [facility] Medical 05/08/2021 12:00:00 AM EDT [place] ([facility]) Outpatient [address] [facility] [address] 05/03/2021 12:00:00 AM EDT eCW1 (Critical access hospital) Nasreen Adams MD: [address] [place] [address], Ph. Attender: Nasreen Adams MD [facility] Medical 05/02/2021 12:00:00 AM EDT JOHANA ([facility]) Nasreen Adams MD: [address] [place] [address], Ph. Attender: Nasreen Adams MD [facility] Medical 05/02/2021 12:00:00 AM EDT JOHANA ([facility]) Nasreen Adams MD: [address] [place] [address], Ph. Attender: Nasreen Adams MD [facility] Medical 05/02/2021 12:00:00 AM EDT JOHANA ([facility]) Nasreen Adams MD: [address] [place] [address], Ph. Attender: Nasreen Adams MD [facility] Medical 05/02/2021 12:00:00 AM EDT JOHANA ([facility]) Nasreen Adams MD: [address] [place] [address], Ph. Attender: Nasreen Adams MD [facility] Medical 05/02/2021 12:00:00 AM EDT JOHANA ([facility]) (WC PROC) [facility]Center Procedure [address] [place] [address] 04/30/2021 12:00:00 AM EDT eCW1 ([facility]) Unknown [address] [facility] [address] 04/23/2021 12:00:00 AM EDT eCW1 (Critical access hospital) Unknown [address] [facility] [place] [address] 04/18/2021 12:00:00 AM EDT [facility]) Unknown [address] [facility] [address] 04/11/2021 12:00:00 AM EDT eCW1 (Critical access hospital) Outpatient [address] [facility] [address] 04/10/2021 12:00:00 AM EDT eCW1 (Critical access hospital) Unknown [address] [facility] [address] 04/09/2021 12:00:00 AM EDT eCW1 (Critical access hospital) Nasreen Adams MD: [address] [place] [address], Ph. Attender: Nasreen Adams MD [facility] Medical 03/29/2021 12:00:00 AM EDT JOHANA ([facility]) Nasreen Adams MD: [address] [place] [address], Ph. Attender: Nasreen Adams MD [facility] Medical 03/29/2021 12:00:00 AM EDT JOHANA ([facility]) Nasreen Adams MD: [address] [place] [address], Ph. Attender: Nasreen Adams MD [facility] Medical 03/29/2021 12:00:00 AM EDT JOHANA ([facility]) Naseren Adams MD: [address] [place] [address], Ph. Attender: Nasreen Adams MD [facility] Medical 03/29/2021 12:00:00 AM EDT JOHANA ([facility]) Nasreen Adams MD: [address] [place] [address], Ph. Attender: Nasreen Adams MD [facility] Medical 03/29/2021 12:00:00 AM EDT JOHANA ([facility]) Nasreen Adams MD: [address] [place] [address], Ph. Attender: Nasreen Adams MD [facility] Medical 03/21/2021 12:00:00 AM EDT JOHANA ([facility]) Nasreen Adams MD: [address] [place] [address], Ph. Attender: Nasreen Adams MD [facility] Medical 03/21/2021 12:00:00 AM EDT JOHANA ([facility]) Nasreen Adams MD: [address] [place] [address], Ph. Attender: Nasreen Adams MD [facility] Medical 03/21/2021 12:00:00 AM EDT JOHANA ([facility]) Nasreen Adams MD: [address] [place] [address], Ph. Attender: Nasreen Adams MD [facility] Medical 03/21/2021 12:00:00 AM EDT JOHANA ([facility]) Nasreen Adams MD: [address] [place] [address], Ph. Attender: Nasreen Adams MD [facility] Medical 03/21/2021 12:00:00 AM EDT OJ[place] ([facility]) Nasreen Adams MD: [address] [place] [address], Ph. Attender: Nasreen Adams MD [facility] Medical 03/21/2021 12:00:00 AM EDT JOHANA ([facility]) Unknown [address] [facility], [place] [address] 03/05/2021 12:00:00 AM EDT eCW1 (Critical access hospital) Outpatient Attender: Bruce Goldsmith MD Physical Therapy 02/19/2021 0 1:15:00 PM EDT MEDENT ([facility]) Nasreen Adams MD: [address] [place] [address], Ph. Attender: Nasreen Adams MD [facility] Medical 02/14/2021 12:00:00 AM EDT JOHANA ([facility]) Nasreen Adams MD: [address] [place] [address], Ph. Attender: Nasreen Adams MD [facility] Medical 02/14/2021 12:00:00 AM EDT JOHANA ([facility]) Nasreen Adams MD: [address] [place] [address], Ph. Attender: Nasreen Adams MD [facility] Medical 02/14/2021 12:00:00 AM EDT JOHANA ([facility]) Nasreen Adams MD: [address] [place] [address], Ph. Attender: Nasreen Adams MD [facility] Medical 02/14/2021 12:00:00 AM EDT JOHANA ([facility]) Nasreen Adams MD: [address] [place] [address], Ph. Attender: Nasreen Adams MD [facility] Medical 02/14/2021 12:00:00 AM EDT JOHANA ([facility]) Nasreen Adams MD: [address] [place] [address], Ph. Attender: Nasreen Adams MD [facility] Medical 02/14/2021 12:00:00 AM EDT JOHANA ([facility]) Nasreen Adams MD: [address] [place] [address], Ph. Attender: Nasreen Adams MD [facility] Medical 02/14/2021 12:00:00 AM EDT JOHANA ([facility]) Outpatient Attender: Renan Caro MD Physical Therapy 02:30:00 PM EDT MEDENT ([facility]) Outpatient Attender: Bruce Goldsmith MD Physical Therapy 01/18/2021 0 2:00:00 PM EDT MEDENT ([facility]) Unknown [address] [facility] Y [address] 01/15/2021 12:00:00 AM EDT eCW1 (Critical access hospital) Nasreen Adams MD: [address], [place] [address], Ph. Attender: Nasreen Adams MD [facility] Medical 01/10/2021 12:00:00 AM EDT JOHANA ([facility]) Nasreen Adams MD: [address], [address], [place] [address], Ph. Attender: Nasreen Adams MD [facility] Medical 01/10/2021 12:00:00 AM EDT JOHANA ([facility]) Nasreen Adams MD: [address], [place] [address], Ph. Attender: Nasreen Adams MD [facility] Medical 01/10/2021 12:00:00 AM EDT JOHANA ([facility]) Nasreen Adams MD: [address], [address], [place] [address], Ph. Attender: Nasreen Adams MD [facility] Medical 01/10/2021 12:00:00 AM EDT JOHANA ([facility]) Nasreen Adams MD: [address], [place] [address], Ph. Attender: Nasreen Adams MD [facility] Medical 01/10/2021 12:00:00 AM EDT JOHANA ([facility]) Nasreen Adams MD: [address], [place] [address], Ph. Attender: Nasreen Adams MD [facility] Medical 01/10/2021 12:00:00 AM EDT JOHANA ([facility]) Nasreen Adams MD: [address], [place] [address], Ph. Attender: Nasreen Adams MD [facility] Medical 01/10/2021 12:00:00 AM EDT JOHANA ([facility]) Nasreen Adams MD: [address], [place] [address], Ph. Attender: Nasreen Adams MD [facility] Medical 01/10/2021 12:00:00 AM EDT JOHANA ([facility]) Outpatient Attender: JINNY GRIDER [facility] Office 11/14 09:45:00 AM EDT MEDENT ([facility] Outpatient [address] [facility] [address] 11/27/2020 12:00:00 AM EDT [facility]CW1 [facility]) Outpatient [address] [facility] [address] 11/16/2020 12:00:00 AM EST eCW1 ([facility]) Unknown [address] [facility] Y [address] 11/02/2020 12:00:00 AM EST eCW1 ([facility]) Nasreen Adams MD: [address] [place] [address], Ph. Attender: Nasreen Adams MD [facility] Medical 10/26/2020 12:00:00 AM EST JOHANA ([facility]) Nasreen Adams MD: [address] [place] [address], Ph. Attender: Nasreen Adams MD [facility] Medical 10/26/2020 12:00:00 AM EST JOHANA ([facility]) Nasreen Adams MD: [address] [place] [address], Ph. Attender: Nasreen Adams MD [facility] Medical 10/26/2020 12:00:00 AM EST JOHANA ([facility]) Nasreen Adams MD: [address] [place] [address], Ph. Attender: Nasreen Adams MD [facility] Medical 10/26/2020 12:00:00 AM EST JOHANA ([facility]) Nasreen Adams MD: [address] [place] [address], Ph. Attender: Nasreen Adams MD [facility] Medical 10/26/2020 12:00:00 AM EST JOHANA ([facility]) Nasreen Adams MD: [address] [place] [address], Ph. Attender: Nasreen Adams MD [facility] Medical 10/26/2020 12:00:00 AM EST JOHANA ([facility]) Nasreen Adams MD: [address] [place] [address], Ph. Attender: Nasreen Adams MD [facility] Medical 10/26/2020 12:00:00 AM EST JOHANA ([facility]) Nasreen Adams MD: [address] [place] [address], Ph. Attender: Nasreen Adams MD [facility] Medical 10/26/2020 12:00:00 AM EST JOHANA ([facility]) Nasreen Adams MD: [address] [place] [address], Ph. Attender: Nasreen Adams MD [facility] Medical 10/26/2020 12:00:00 AM EST JOHANA ([facility]) Outpatient Attender: Bart Pantoja NP [facility] 10/25/2020 02:30:00 AM EST - 10/25/2020 02:30:00 AM EST [facility] ([facility]) Attender: Bart Pantoja NP 10/25/2020 12:00:00 AM EST [facility] ([facility]) Unknown [address] [facility], [place] [address] 09/29/2020 12:00:00 AM EST eCW1 (Critical access hospital) Outpatient [address] [facility] Y [address] 09/29/2020 12:00:00 AM EST eCW1 (Critical access hospital) Outpatient Attender: JINNY GRIDER [facility] 08/17 08:30:00 AM EST [facility] ([facility] Attender: Nayeli Calabrese 09/11/2020 12:00:00 A M EST [facility] ([facility]) Extended Individual Psychotherapy - 45 min Attender: Caleb Calabrese [facility] 08/24/2020 09:00:00 AM EST - 08/24/2020 09:00:00 AM EST [facility] ([facility]) Outpatient Attender: Bart Pantoja NP [facility] 08/17/2020 02:30:00 AM EST - 08/17/2020 02:30:00 AM EST [facility] ([facility]) Attender: Bart Pantoja NP 08/17/2020 12:00:00 AM EST [facility] ([facility]) Outpatient Attender: JINNY GRIDER [facility] Office 07/16 08:15:00 AM EST [facility] ([facility] (PN Proc 60) Pain Procedure 60 [address] [place] [address] 07/31/2020 12:00:00 AM EST eCW1 ([facility]) Unknown [address] [facility], [place] [address] 07/28/2020 12:00:00 AM EST [facility]CW1 [facility]) [id number]"Psych[facility]/10/2020 10:45:00 AM EDT - 07/10/2020 10:45:00 AM EDT [facility] ([facility]) Attender: Nayeli Calabrese 07/10/2020 12:00:00 A M EDT [facility] ([facility]) Outpatient Attender: BONILLA SANCHEZ 07/04/2020 11:13:03 AM EDT [facility] Unknown [address] [facility], [place] [address] 06/22/2020 12:00:00 AM EDT eCW1 ([facility]) Unknown [address] [facility] [place] [address] 06/22/2020 12:00:00 AM EDT eCW1 ([facility]) Unknown [address] [facility] Y [address] 06/21/2020 12:00:00 AM EDT eCW1 ([facility]) Unknown [address] [facility] Y [address] 06/20/2020 12:00:00 AM EDT eCW1 ([facility]) Unknown [address] [facility] Y [address] 06/20/2020 12:00:00 AM EDT eCW1 (Critical access hospital) Outpatient Attender: BONILLA CRYSTAL FP 06/19/2020 12:12:02 PM EDT [facility] Outpatient Attender: Doris CRYSTAL-BC FP 06/19/2020 12: 11:02 PM EDT [facility] TEMPMHCTelemed 30" Psychotherapy Attender: Nayeli Astorga [facility] 06/19/2020 02:15:00 AM EDT - 06/19/2020 02:15:00 AM EDT [facility] ([facility]) Attender: Nayeli Calabrese 06/19/2020 12:00:00 A M EDT [facility] ([facility]) Outpatient Attender: Doris CRYSTAL-BC FP 06/17/2020 01: 11:03 PM EDT [facility] Outpatient Attender: BONILLA CRYSTAL FP 06/15/2020 04:02:01 PM EDT [facility] Outpatient Attender: Bart Pantoja NP [facility] 06/15/2020 02:30:00 AM EDT - 06/15/2020 02:30:00 AM EDT [facility] ([facility]) Attender: Bart Pantoja NP 06/15/2020 12:00:00 AM EDT [facility] ([facility]) Functional Status Immunizations Vaccine Date Status Description Data Source(s) New in 2011. IIV4 07/11/2021 12:36:00 PM EDT completed 07/11/20 21 JOHANA ([facility]) COVID-19 VACCINE Moderna 06/22/2021 12:00:00 AM EDT completed [place] Vaccine Series Complete: YESThis Data wa s Submitted to [facility] Via [facility]. COVID-19 VACCINE Moderna 05/25/2021 12:00:00 AM EDT completed [place] Vaccine Series Complete: NOThis Data was Submitted to [facility] Via [employer]. New in 2011. IIV4 10/26/2020 10:32:00 AM EST completed .5 mL JOHANA ([facility]) New in 2011. IIV4 10/26/2020 10:32:00 AM EST completed .5 mL JOHANA ([facility]) New in 2011. IIV4 10/26/2020 10:32:00 AM EST completed .5 mL JOHANA ([facility]) New in 2011. IIV4 10/26/2020 10:32:00 AM EST completed .5 mL JOHANA ([facility]) New in 2011. IIV4 10/26/2020 10:32:00 AM EST completed .5 mL JOHANA ([facility]) New in 2011. IIV4 10/26/2020 10:32:00 AM EST completed .5 mL JOHANA ([facility]) New in 2011. IIV4 10/26/2020 10:32:00 AM EST completed .5 mL JOHANA ([facility]) New in 2011. IIV4 10/26/2020 10:32:00 AM EST completed .5 mL JOHANA ([facility]) New in 2011. IIV4 10/26/2020 10:32:00 AM EST completed .5 mL JOHANA ([facility]) Medications Medication Brand Name Start Date [...] 1.0 {tablet} active Myrbetriq 50 MG eCW1 ([facility]) 24 HR mirabegron 50 MG Extended Release Oral Tablet [M yrbetriq] Myrbetriq 50 MG Myrbetriq 50 MG 05/03/2021 12:00:00 AM EDT 1.0 {tablet} active Myrbetriq 50 MG eCW1 ([facility]) 24 HR mirabegron 50 MG Extended Release Oral Tablet [M yrbetriq] Myrbetriq 50 MG Myrbetriq 50 MG 05/03/2021 12:00:00 AM EDT 1.0 {tablet} active Myrbetriq 50 MG eCW1 ([facility]) Furosemide 40 MG Oral Tablet [Lasix] Lasix 40 MG Lasix 40 MG 04/30/2021 12:00:00 AM EDT 1.0 {tablet} active Lasix 40 M G eCW1 ([facility]) Furosemide 40 MG Oral Tablet [Lasix] Lasix 40 MG Lasix 40 MG 04/30/2021 12:00:00 AM EDT 1.0 {tablet} active Lasix 40 M G eCW1 ([facility]) Furosemide 40 MG Oral Tablet [Lasix] Lasix 40 MG Lasix 40 MG 04/30/2021 12:00:00 AM EDT 1.0 {tablet} active Lasix 40 M G eCW1 ([facility]) Furosemide 40 MG Oral Tablet [Lasix] Lasix 40 MG Lasix 40 MG 04/30/2021 12:00:00 AM EDT 1.0 {tablet} active Lasix 40 M G eCW1 ([facility]) doxycycline hyclate 100 MG Oral Tablet DOXYCYCLINE [...] 1.0 {tablet_as_needed} active Hydrocodone-Acetaminophen 5-325 MG eCW1 ([facility]) Acetaminophen 325 MG / Hydrocodone Chilo trate 5 MG Oral Tablet HYDROcodone- Acetaminophen 5-325 MG HYDROcodone-Acetaminophen 5-325 MG 11/27/2020 12:00:00 AM EDT 1.0 {tablet_as_needed} active HYDROcodone-Acetaminophen 5-325 MG eCW1 ([facility]) Acetaminophen 325 MG / Hydrocodone Chilo trate 5 MG Oral Tablet HYDROcodone- Acetaminophen 5-325 MG HYDROcodone-Acetaminophen 5-325 MG 11/27/2020 12:00:00 AM EDT 1.0 {tablet_as_needed} suspended HYDROcodone-Acetaminophen 5- 325 MG eCW1 ([facility]) Acetaminophen 325 MG / Hydrocodone Chilo trate 5 MG Oral Tablet HYDROcodone- Acetaminophen 5-325 MG HYDROcodone-Acetaminophen 5-325 MG 11/27/2020 12:00:00 AM EDT 1.0 {tablet_as_needed} suspended HYDROcodone-Acetaminophen 5- 325 MG eCW1 ([facility]) Acetaminophen 325 MG / Hydrocodone Chilo trate 5 MG Oral Tablet Hydrocodone- Acetaminophen 5-325 MG Hydrocodone-Acetaminophen 5-325 MG 11/27/2020 12:00:00 AM EDT 1.0 {tablet_as_needed} active Hydrocodone-Acetaminophen 5-325 MG eCW1 ([facility]) Acetaminophen 325 MG / Hydrocodone Chilo trate 5 MG Oral Tablet HYDROcodone- Acetaminophen 5-325 MG HYDROcodone-Acetaminophen 5-325 MG 11/27/2020 12:00:00 AM EDT 1.0 {tablet_as_needed} suspended HYDROcodone-Acetaminophen 5- 325 MG eCW1 ([facility]) Acetaminophen 325 MG / Hydrocodone Chilo trate 5 MG Oral Tablet HYDROcodone- Acetaminophen 5-325 MG HYDROcodone-Acetaminophen 5-325 MG 11/27/2020 12:00:00 AM EDT 1.0 {tablet_as_needed} suspended HYDROcodone-Acetaminophen 5- 325 MG eCW1 ([facility]) Acetaminophen 325 MG / Hydrocodone Chilo trate 5 MG Oral Tablet HYDROcodone- Acetaminophen 5-325 MG HYDROcodone-Acetaminophen 5-325 MG 11/27/2020 12:00:00 AM EDT 1.0 {tablet_as_needed} suspended HYDROcodone-Acetaminophen 5- 325 MG eCW1 ([facility]) Acetaminophen 325 MG / Hydrocodone Chilo trate 5 MG Oral Tablet HYDROcodone- Acetaminophen 5-325 MG HYDROcodone-Acetaminophen 5-325 MG 11/27/2020 12:00:00 AM EDT 1.0 {tablet_as_needed} suspended HYDROcodone-Acetaminophen 5- 325 MG eCW1 ([facility]) Acetaminophen 325 MG / Hydrocodone Chilo trate 5 MG Oral Tablet HYDROcodone- Acetaminophen 5-325 MG HYDROcodone-Acetaminophen 5-325 MG 11/27/2020 12:00:00 AM EDT 1.0 {tablet_as_needed} suspended HYDROcodone-Acetaminophen 5- 325 MG eCW1 ([facility]) Acetaminophen 325 MG / Hydrocodone Chilo trate 5 MG Oral Tablet HYDROcodone- Acetaminophen 5-325 MG HYDROcodone-Acetaminophen 5-325 MG 11/27/2020 12:00:00 AM EDT 1.0 {tablet_as_needed} active HYDROcodone-Acetaminophen 5-325 MG eCW1 ([facility]) Acetaminophen 325 MG / Hydrocodone Chilo trate 5 MG Oral Tablet HYDROcodone- Acetaminophen 5-325 MG HYDROcodone-Acetaminophen 5-325 MG 11/27/2020 12:00:00 AM EDT 1.0 {tablet_as_needed} suspended HYDROcodone-Acetaminophen 5- 325 MG eCW1 ([facility]) tizanidine 2 MG Oral Tablet TIZANIDINE HCL 11/03/2020 12:00:00 AM EST tablet 90 TAKE ONE TABLET BY MOUTH THREE TIMES A DAY NEEDED T FRANS[place] ONE TABLET BY MOUTH THREE TIMES A DAY NEEDED SOLD: 11/03/2020 [facility] tizanidine 2 MG Oral Tablet TIZANIDINE HCL 11/03/2020 12:00:00 AM EST tablet 90 TAKE ONE TABLET BY MOUTH THREE TIMES A DAY NEEDED T FRANS[place] ONE TABLET BY MOUTH THREE TIMES A DAY NEEDED SOLD: 12/04/2020 [facility] tizanidine 2 MG Oral Tablet TIZANIDINE HCL 11/03/2020 12:00:00 AM EST tablet 90 TAKE ONE TABLET BY MOUTH THREE TIMES A DAY NEEDED T FRANS[place] ONE TABLET BY MOUTH THREE TIMES A DAY NEEDED SOLD: 01/05/2021 [facility] Acetaminophen 325 MG / Hydrocodone Chilo trate 5 MG Oral Tablet Hydrocodone- Acetaminophen 5-325 MG Hydrocodone-Acetaminophen 5-325 MG 11/02/2020 12:00:00 AM EST 1.0 {tablet_as_needed} active Hydrocodone-Acetaminophen 5-325 MG eCW1 ([facility]) 5-325 mg 11/02/2020 12:00:00 AM EST tablet [...] 1.0 {tablet_as_needed} active Hydrocodone-Acetaminophen 5-325 MG eCW1 ([facility]) 5-325 mg 10/16/2020 12:00:00 AM EST tablet 14 TAKE ONE TABLET BY MOUTH EVERY 12 HOURS NEEDED, MAXIMUM DAILY DOSE = TWO TABLETS TAKE ONE TABLET BY MOUTH EVERY 12 HOURS NEEDED, MAXIMUM DAILY DOSE = TWO TABLETS SOLD: 10/16/2020 [facility] Calvin 5-325 MG UNK 10/12/2020 12:00:00 AM EST 1.0 {tablet_as _needed} suspended Calvin 5-325 MG eCW1 ([facility]) Calvin 5-325 MG UNK 10/12/2020 12:00:00 AM EST 1.0 {tablet_as _needed} suspended Calvin 5-325 MG eCW1 ([facility]) Acetaminophen 325 MG / Hydrocodone Chilo trate 5 MG Oral Tablet [Calvin] Calvin 5- 325 MG Calvin 5-325 MG 10/12/2020 12:00:00 AM EST 1.0 {tablet_as_needed} active Calvin 5-325 MG eCW1 ([facility]) Calvin 5-325 MG UNK 10/12/2020 12:00:00 AM EST 1.0 {tablet_as _needed} suspended Calvin 5-325 MG eCW1 ([facility]) Calvin 5-325 MG UNK 10/12/2020 12:00:00 AM EST 1.0 {tablet_as _needed} suspended Calvin 5-325 MG eCW1 ([facility]) Calvin 5-325 MG UNK 10/12/2020 12:00:00 AM EST 1.0 {tablet_as _needed} suspended Calvin 5-325 MG eCW1 ([facility]) Calvin 5-325 MG UNK 10/12/2020 12:00:00 AM EST 1.0 {tablet_as _needed} suspended Calvin 5-325 MG eCW1 ([facility]) Calvin 5-325 MG UNK 10/12/2020 12:00:00 AM EST 1.0 {tablet_as _needed} suspended Calvin 5-325 MG eCW1 ([facility]) Calvin 5-325 MG UNK 10/12/2020 12:00:00 AM EST 1.0 {tablet_as _needed} active Calvin 5-325 MG eCW1 ([facility]) Calvin 5-325 MG UNK 10/12/2020 12:00:00 AM EST 1.0 {tablet_as _needed} suspended Calvin 5-325 MG eCW1 ([facility]) Calvin 5-325 MG UNK 10/12/2020 12:00:00 AM EST 1.0 {tablet_as _needed} active Calvin 5-325 MG eCW1 ([facility]) Calvin 5-325 MG UNK 10/12/2020 12:00:00 AM EST 1.0 {tablet_as _needed} active Calvin 5-325 MG eCW1 ([facility]) Calvin 5-325 MG UNK 10/12/2020 12:00:00 AM EST 1.0 {tablet_as _needed} suspended Calvin 5-325 MG eCW1 ([facility]) Calvin 5-325 MG UNK 10/12/2020 12:00:00 AM EST 1.0 {tablet_as _needed} suspended Calvin 5-325 MG eCW1 ([facility]) Calvin 5-325 MG UNK 10/12/2020 12:00:00 AM EST 1.0 {tablet_as _needed} suspended Calvin 5-325 MG eCW1 ([facility]) 168 HR Buprenorphine 0.005 MG/HR Transdermal Patch [Bu Trans] Butrans 5 MCG/HR Butrans 5 MCG/HR 09/29/2020 12:00:00 AM EST 1.0 {patch_to_skin} suspended Butrans 5 MCG/HR eCW1 ([facility]) 168 HR Buprenorphine 0.005 MG/HR Transdermal Patch [Bu Trans] Butrans 5 MCG/HR Butrans 5 MCG/HR 09/29/2020 12:00:00 AM EST 1.0 {patch_to_skin} active Butrans 5 MCG/HR eCW1 ([facility]) 168 HR Buprenorphine 0.005 MG/HR Transdermal Patch [Bu Trans] Butrans 5 MCG/HR Butrans 5 MCG/HR 09/29/2020 12:00:00 AM EST 1.0 {patch_to_skin} suspended Butrans 5 MCG/HR eCW1 ([facility]) 168 HR Buprenorphine 0.005 MG/HR Transdermal Patch [Bu Trans] Butrans 5 MCG/HR Butrans 5 MCG/HR 09/29/2020 12:00:00 AM EST 1.0 {patch_to_skin} suspended Butrans 5 MCG/HR eCW1 ([facility]) 168 HR Buprenorphine 0.005 MG/HR Transdermal Patch [Bu Trans] Butrans 5 MCG/HR Butrans 5 MCG/HR 09/29/2020 12:00:00 AM EST 1.0 {patch_to_skin} suspended Butrans 5 MCG/HR eCW1 ([facility]) 168 HR Buprenorphine 0.005 MG/HR Transdermal Patch [Bu Trans] Butrans 5 MCG/HR Butrans 5 MCG/HR 09/29/2020 12:00:00 AM EST 1.0 {patch_to_skin} suspended Butrans 5 MCG/HR eCW1 ([facility]) 168 HR Buprenorphine 0.005 MG/HR Transdermal Patch [Bu Trans] Butrans 5 MCG/HR Butrans 5 MCG/HR 09/29/2020 12:00:00 AM EST 1.0 {patch_to_skin} active Butrans 5 MCG/HR eCW1 ([facility]) 168 HR Buprenorphine 0.005 MG/HR Transdermal Patch [Bu Trans] Butrans 5 MCG/HR Butrans 5 MCG/HR 09/29/2020 12:00:00 AM EST 1.0 {patch_to_skin} suspended Butrans 5 MCG/HR eCW1 ([facility]) 168 HR Buprenorphine 0.005 MG/HR Transdermal Patch [Bu Trans] Butrans 5 MCG/HR Butrans 5 MCG/HR 09/29/2020 12:00:00 AM EST 1.0 {patch_to_skin} active Butrans 5 MCG/HR eCW1 ([facility]) 168 HR Buprenorphine 0.005 MG/HR Transdermal Patch [Bu Trans] Butrans 5 MCG/HR Butrans 5 MCG/HR 09/29/2020 12:00:00 AM EST 1.0 {patch_to_skin} suspended Butrans 5 MCG/HR eCW1 ([facility]) 168 HR Buprenorphine 0.005 MG/HR Transdermal Patch [Bu Trans] Butrans 5 MCG/HR Butrans 5 MCG/HR 09/29/2020 12:00:00 AM EST 1.0 {patch_to_skin} suspended Butrans 5 MCG/HR eCW1 ([facility]) 168 HR Buprenorphine 0.005 MG/HR Transdermal Patch [Bu Trans] Butrans 5 MCG/HR Butrans 5 MCG/HR 09/29/2020 12:00:00 AM EST 1.0 {patch_to_skin} suspended Butrans 5 MCG/HR eCW1 ([facility]) 168 HR Buprenorphine 0.005 MG/HR Transdermal Patch [Bu Trans] Butrans 5 MCG/HR Butrans 5 MCG/HR 09/29/2020 12:00:00 AM EST 1.0 {patch_to_skin} suspended Butrans 5 MCG/HR eCW1 ([facility]) 168 HR Buprenorphine 0.005 MG/HR Transdermal Patch [Bu Trans] Butrans 5 MCG/HR Butrans 5 MCG/HR 09/29/2020 12:00:00 AM EST 1.0 {patch_to_skin} active Butrans 5 MCG/HR eCW1 ([facility]) 168 HR Buprenorphine 0.005 MG/HR Transdermal Patch [Bu Trans] Butrans 5 MCG/HR Butrans 5 MCG/HR 09/29/2020 12:00:00 AM EST 1.0 {patch_to_skin} suspended Butrans 5 MCG/HR eCW1 ([facility]) 168 HR Buprenorphine 0.005 MG/HR Transdermal Patch [Bu Trans] Butrans 5 MCG/HR Butrans 5 MCG/HR 09/29/2020 12:00:00 AM EST 1.0 {patch_to_skin} suspended Butrans 5 MCG/HR eCW1 ([facility]) 10 mg 09/28/2020 12:00:00 AM EST tablet [...] AM EST 10 mg completed <td ID="Medicati onRxNorm_1">116617</td><td ID="MedicationMedication_1">fluoxetine</td><td ID="MedicationRoute_1"></td><td ID="MedicationRouteConcept_1"></td><td ID="MedicationStartDate_1">09/26/2020</td><td ID="MedicationStopDate_1"></td><td ID="MedicationDosageFrequency_1"></td><td ID="MedicationDuration_1">30</td><td ID="MedicationFormulaStrength_1">10 mg</td><td ID="MedicationDosageForm_1">capsule</td><td ID="MedicationDosageFormCode_1"></td><td ID="MedicationDosageDescription_1"></td><td ID="MedicationMedicationId_1">[id number]</td><td ID="MedicationAccount_1">[id number]</td><td ID="MedicationNpid_1">[id number]</td><td ID="MedicationAuthorFirstName_1">Bart</td><td ID="MedicationAuthorLastName_1">Pantoja</td><td ID="MedicationTaxonomyCode_1">[id number]</td><td ID="MedicationTaxonomyDesc_1">Nurse Practitioner</td><td ID="MedicationPhoneNumber_1">[phone]</td> [facility] ([facility]) 75 mcg 09/26/2020 12:00:00 AM EST tablet [...] AM EST 100 mg completed <td ID="Medicat ionRxNorm_2">475940</td><td ID="MedicationMedication_2">quetiapine</td><td ID="MedicationRoute_2"></td><td ID="MedicationRouteConcept_2"></td><td ID="MedicationStartDate_2">08/24/2020</td><td ID="MedicationStopDate_2"></td><td ID="MedicationDosageFrequency_2"></td><td ID="MedicationDuration_2">30</td><td ID="MedicationFormulaStrength_2">100 mg</td><td ID="MedicationDosageForm_2">tablet</td><td ID="MedicationDosageFormCode_2"></td><td ID="MedicationDosageDescription_2"></td><td ID="MedicationMedicationId_2">[id number]</td><td ID="MedicationAccount_2">[id number]</td><td ID="MedicationNpid_2">[id number]</td><td ID="MedicationAuthorFirstName_2">Bart</td><td ID="MedicationAuthorLastName_2">Pantoja</td><td ID="MedicationTaxonomyCode_2">[id number]</td><td ID="MedicationTaxonomyDesc_2">Nurse Practitioner</td><td ID="MedicationPhoneNumber_2">[phone]</td> [facility] ([facility]) quetiapine 100 MG Oral Tablet QUETIAPINE FUMARATE 08/18/2020 12: 00:00 AM EST tablet 45 TAKE ONE AND ONE-HALF TABLETS BY MOUTH EVERY DAY AT BEDTIME TAKE ONE AND ONE-HALF TABLETS BY MOUTH EVERY DAY AT BEDTIME SOLD: 08/25/2020 [facility] quetiapine 100 MG Oral Tablet QUETIAPINE FUMARATE 08/18/2020 12: 00:00 AM EST tablet 45 TAKE ONE AND ONE-HALF TABLETS BY MOUTH EVERY DAY AT BEDTIME TAKE ONE AND ONE-HALF TABLETS BY MOUTH EVERY DAY AT BEDTIME SOLD: 10/31/2020 [facility] quetiapine 100 MG Oral Tablet QUETIAPINE FUMARATE 08/18/2020 12: 00:00 AM EST tablet 45 TAKE ONE AND ONE-HALF TABLETS BY MOUTH EVERY DAY AT BEDTIME TAKE ONE AND ONE-HALF TABLETS BY MOUTH EVERY DAY AT BEDTIME SOLD: 09/23/2020 [facility] 24 HR lamotrigine 200 MG Extended Release Oral Tablet lamotr igine 08/14/2020 12:00:00 AM EST 200 mg by mouth completed <td ID="MedicationRxNorm_3">224635</td><td ID="MedicationMedication_3">lamotrigine</td><td ID="MedicationRoute_3">by mouth</td><td ID="MedicationRouteConcept_3">[id number]</td><td ID="MedicationStartDate_3">08/14/2020</td><td ID="MedicationStopDate_3"></td><td ID="MedicationDosageFrequency_3">once a day</td><td ID="MedicationDuration_3"></td><td ID="MedicationFormulaStrength_3">200 mg</td><td ID="MedicationDosageForm_3">tablet extended release 24hr</td><td ID="MedicationDosageFormCode_3"></td><td ID="MedicationDosageDescription_3"></td><td ID="MedicationMedicationId_3">[id number]</td><td ID="MedicationAccount_3">[id number]</td><td ID="MedicationNpid_3">[id number]</td><td ID="MedicationAuthorFirstName_3">Bart</td><td ID="MedicationAuthorLastName_3">Pantoja</td><td ID="MedicationTaxonomyCode_3">[id number]</td><td ID="MedicationTaxonomyDesc_3"> Nurse Practitioner</td><td ID="MedicationPhoneNumber_3">[phone]</td> [facility]) 24 HR lamotrigine 200 MG Extended Release Oral Tablet LAMOTR IGINE 08/14/2020 12:00:00 AM EST tablet extended release 24hr 30 BARB E ONE TABLET BY MOUTH EVERY DAY TAKE ONE TABLET BY MOUTH EVERY DAY SOLD: 08/25/2020 [facility] 24 HR lamotrigine 200 MG Extended Release [...] 100 mg by mouth completed <td ID="Medica tionRxNorm_3">625627</td><td ID="MedicationMedication_3">quetiapine</td><td ID="MedicationRoute_3">by mouth</td><td ID="MedicationRouteConcept_3">D24002</td><td ID="MedicationStartDate_3">05/25/2020</td><td ID="MedicationStopDate_3">08/23/2020</td><td ID="MedicationDosageFrequency_3">at bedtime</td><td ID="MedicationDuration_3">30</td><td ID="MedicationFormulaStrength_3">100 mg</td><td ID="MedicationDosageForm_3">tablet</td><td ID="MedicationDosageFormCode_3"></td><td ID="MedicationDosageDescription_3"></td><td ID="MedicationMedicationId_3">[id number]</td><td ID="MedicationAccount_3">[id number]</td><td ID="MedicationNpid_3">[id number]</td><td ID="MedicationAuthorFirstName_3">Bart</td><td ID="MedicationAuthorLastName_3">Pantoja</td><td ID="MedicationTaxonomyCode_3">[id number]</td><td ID="MedicationTaxonomyDesc_3">Nurse Practitioner</td><td ID="MedicationPhoneNumber_3">[phone]</td> [facility] ([facility]) quetiapine 100 MG Oral Tablet QUETIAPINE FUMARATE [...] 10 mg by mouth completed <td ID="Medica tionRxNorm_2">035453</td><td ID="MedicationMedication_2">fluoxetine</td><td ID="MedicationRoute_2">by mouth</td><td ID="MedicationRouteConcept_2">I35576</td><td ID="MedicationStartDate_2">05/25/2020</td><td ID="MedicationStopDate_2">08/23/2020</td><td ID="MedicationDosageFrequency_2">once a day</td><td ID="MedicationDuration_2">30</td><td ID="MedicationFormulaStrength_2">10 mg</td><td ID="MedicationDosageForm_2">tablet</td><td ID="MedicationDosageFormCode_2"></td><td ID="MedicationDosageDescription_2"></td><td ID="MedicationMedicationId_2">[id number]</td><td ID="MedicationAccount_2">[id number]</td><td ID="MedicationNpid_2">[id number]</td><td ID="MedicationAuthorFirstName_2">Bart</td><td ID="MedicationAuthorLastName_2">Pantoja</td><td ID="MedicationTaxonomyCode_2">[id number]</td><td ID="MedicationTaxonomyDesc_2">Nurse Practitioner</td><td ID="MedicationPhoneNumber_2">[phone]</td> [facility] ([facility]) 625 mg 02/29/2020 12:00:00 AM EDT tablet [...] hydrocodone bitartrate 5 MG Oral Tablet JOHANA ([facility]) Baclofen 10 MG Oral Tablet baclofen 10 mg tablet baclofen 10 mg tablet completed baclofen 10 MG Oral Table t [place] ([facility]) oxcarbazepine 150 MG Oral Tablet oxcarbazepine 150 mg tablet oxcarbazepine 150 mg tablet completed oxcarbazepin e 150 MG Oral Tablet [place] ([facility]) Baclofen 10 MG Oral Tablet baclofen 10 mg tablet baclofen 10 mg tablet completed baclofen 10 MG Oral Table t JOHANA ([facility]) Levothyroxine Sodium 0.075 MG Oral Table t levothyroxine 75 mcg tablet TAKE ONE TABLET BY MOUTH EVERY DAY ON AN EMPTY STOMACH levothyroxine 75 mcg tablet TAKE ONE TABLET BY MOUTH EVERY DAY ON AN EMPTY STOMACH completed levothyroxine sodium 0.075 MG Oral Tablet [place] ([facility]) methylprednisolone 4 mg tablets in a dose pack TAKE BY MOUTH DIRECTED [id number] completed methylpredniso lone 4 mg tablets in a dose pack [place] ([facility]) oxcarbazepine 150 MG Oral Tablet oxcarbazepine 150 mg tablet oxcarbazepine 150 mg tablet completed oxcarbazepin e 150 MG Oral Tablet [place] ([facility]) benzonatate 100 MG Oral Capsule benzonatate 100 mg cap kamran benzonatate 100 mg capsule completed benzonatate 10 0 MG Oral Capsule [place] ([facility]) Acetaminophen 325 MG / Hydrocodone Chilo trate [...] / hydrocodone bitartrate 5 MG Oral Tablet [facility]) 24 HR lamotrigine 100 MG Extended Releas e Oral Tablet lamotrigine ER 100 mg tablet,extended release 24 hr TAKE ONE TABLET BY MOUTH TWICE A DAY lamotrigine ER 100 mg tablet,extended release 24 hr TAKE ONE TABLET BY MOUTH TWICE A DAY completed 24 HR lamotrig ine 100 MG Extended Release Oral Tablet [facility]) oxcarbazepine 150 MG Oral Tablet oxcarbazepine 150 mg tablet oxcarbazepine 150 mg tablet completed oxcarbazepin e 150 MG Oral Tablet [place] ([facility]) apixaban 5 MG Oral Tablet [Eliquis] Eliq uis 5 mg tablet TAKE ONE TABLET BY MOUTH TWICE A DAY Eliquis 5 mg tablet TAKE ONE TABLET BY MOUTH TWICE A DAY completed apixaban 5 MG Oral Tablet [E liquis] [place] ([facility]) benzonatate 100 MG Oral Capsule benzonatate 100 mg cap kamran benzonatate 100 mg capsule completed benzonatate 10 0 MG Oral Capsule [place] ([facility]) 12 HR Orphenadrine Citrate 100 MG Extend ed Release Oral Tablet orphenadrine citrate ER 100 mg tablet,extended release TAKE ONE TABLET BY MOUTH TWICE A DAY NEEDED FOR MUSCLE SPASMS orphenadrine citrate ER 100 mg tablet,ex tended release TAKE ONE TABLET BY MOUTH TWICE A DAY NEEDED FOR MUSCLE SPASMS completed 12 HR orphenad rine citrate 100 MG Extended Release Oral Tablet [place] ([facility]) apixaban 5 MG Oral Tablet [Eliquis] Eliq uis 5 mg tablet TAKE ONE TABLET BY MOUTH TWICE A DAY Eliquis 5 mg tablet TAKE ONE TABLET BY MOUTH TWICE A DAY completed apixaban 5 MG Oral Tablet [E liquis] [place] ([facility]) 24 HR lamotrigine 100 MG Extended Releas e Oral Tablet lamotrigine ER 100 mg tablet,extended release 24 hr TAKE ONE TABLET BY MOUTH TWICE A DAY lamotrigine ER 100 mg tablet,extended release 24 hr TAKE ONE TABLET BY MOUTH TWICE A DAY completed 24 HR lamotrig ine 100 MG Extended Release Oral Tablet [place] ([facility]) tizanidine 4 MG Oral Tablet tizanidine 4 mg tablet TAKE ONE TABLET BY MOUTH TWICE A DAY tizanidine 4 mg tablet TAKE ONE TABLET BY MOUTH TWICE A DAY completed tizanidine 4 MG Oral Tabl et [facility] ([facility]) apixaban 5 MG Oral Tablet [Eliquis] Eliq uis 5 mg tablet TAKE ONE TABLET BY MOUTH TWICE A DAY Eliquis 5 mg tablet TAKE ONE TABLET BY MOUTH TWICE A DAY completed apixaban 5 MG Oral Tablet [E liquis] [place] ([facility]) Dexamethasone 4 MG Oral Tablet dexamethasone 4 mg tabl et dexamethasone 4 mg tablet completed dexamethasone 4 MG Oral Tablet [place] ([facility]) Baclofen 10 MG Oral Tablet baclofen 10 mg tablet baclofen 10 mg tablet completed baclofen 10 MG Oral Table t [place] ([facility]) Baclofen 10 MG Oral Tablet baclofen 10 mg tablet baclofen 10 mg tablet completed baclofen 10 MG Oral Table t [place] ([facility]) Hydrochlorothiazide 25 MG / Triamterene 37.5 MG Oral Tablet triamterene 37.5 mg- hydrochlorothiazide 25 mg tablet TAKE ONE TABLET BY MOUTH EVERY DAY triamterene 37.5 mg-hydrochlorothiazide 25 mg tablet TAKE ONE TABLET BY MOUTH EVERY DAY completed hydrochlor othiazide 25 MG / triamterene 37.5 MG Oral Tablet [place] ([facility]) tizanidine 4 MG Oral Tablet tizanidine 4 mg tablet TAKE ONE TABLET BY MOUTH TWICE A DAY tizanidine 4 mg tablet TAKE ONE TABLET BY MOUTH TWICE A DAY completed tizanidine 4 MG Oral Tabl et [place] ([facility]) fluticasone propionate 50 mcg/actuation nasal spray,suspension [id number] completed fluticasone propionate 0.05 MG/ACTUAT Metered Dose Nasal [place] ([facility]) fluticasone propionate 50 mcg/actuation nasal spray,suspension [id number] completed fluticasone propionate 0.05 MG/ACTUAT Metered Dose Nasal [place] ([facility]) quetiapine 50 MG Oral Tablet quetiapine 50 mg tablet quetiapine 50 mg tablet completed quetiapine 50 MG Oral Tablet [place] ([facility]) Dexamethasone 4 MG Oral Tablet dexamethasone 4 mg tabl et dexamethasone 4 mg tablet completed dexamethasone 4 MG Oral Tablet [facility]) methylprednisolone 4 mg tablets in a dose pack TAKE BY MOUTH DIRECTED [id number] completed methylpredniso lone 4 mg tablets in a dose pack [facility]) Hydrochlorothiazide 25 MG / Triamterene 37.5 MG Oral Tablet triamterene 37.5 mg- hydrochlorothiazide 25 mg tablet TAKE ONE TABLET BY MOUTH EVERY DAY triamterene 37.5 mg-hydrochlorothiazide 25 mg tablet TAKE ONE TABLET BY MOUTH EVERY DAY completed hydrochlor othiazide 25 MG / triamterene 37.5 MG Oral Tablet [place] ([facility]) fluticasone propionate 50 mcg/actuation nasal spray,suspension [id number] completed fluticasone propionate 0.05 MG/ACTUAT Metered Dose Nasal [place] ([facility]) oxcarbazepine 150 MG Oral Tablet oxcarbazepine 150 mg tablet oxcarbazepine 150 mg tablet completed oxcarbazepin e 150 MG Oral Tablet [facility]) benzonatate 100 MG Oral Capsule benzonatate 100 mg cap kamran benzonatate 100 mg capsule completed benzonatate 10 0 MG Oral Capsule [facility] ([facility]) Acetaminophen 325 MG / Hydrocodone Chilo trate [...] hydrocodone bitartrate 5 MG Oral Tablet [facility] ([facility]) 24 HR lamotrigine 100 MG Extended Releas e Oral Tablet lamotrigine ER 100 mg tablet,extended release 24 hr TAKE ONE TABLET BY MOUTH TWICE A DAY lamotrigine ER 100 mg tablet,extended release 24 hr TAKE ONE TABLET BY MOUTH TWICE A DAY completed 24 HR lamotrig ine 100 MG Extended Release Oral Tablet [facility] ([facility]) benzonatate 100 MG Oral Capsule benzonatate 100 mg cap kamran benzonatate 100 mg capsule completed benzonatate 10 0 MG Oral Capsule [facility] ([facility]) Levothyroxine Sodium 0.075 MG Oral Tablet levothyroxin e 75 mcg tablet levothyroxine 75 mcg tablet completed levothyroxine sodium 0.075 MG Oral Tablet [facility] ([facility]) 12 HR Orphenadrine Citrate 100 [...] 100 MG Extended Release Oral Tablet [facility] ([facility]) quetiapine 50 MG Oral Tablet quetiapine 50 mg tablet quetiapine 50 mg tablet completed quetiapine 50 MG Oral Tablet [facility] ([facility]) methylprednisolone 4 mg tablets in a dose pack TAKE BY MOUTH DIRECTED [id number] completed methylpredniso lone 4 mg tablets in a dose pack [facility] ([facility]) methylprednisolone 4 mg tablets in a dose pack TAKE BY MOUTH DIRECTED [id number] completed methylpredniso lone 4 mg tablets in a dose pack [facility] ([facility]) Dexamethasone 4 MG Oral Tablet dexamethasone 4 mg tabl et dexamethasone 4 mg tablet completed dexamethasone 4 MG Oral Tablet [facility] ([facility]) benzonatate 100 MG Oral Capsule benzonatate 100 mg cap kamran benzonatate 100 mg capsule completed benzonatate 10 0 MG Oral Capsule [facility] ([facility]) fluticasone propionate 50 mcg/actuation nasal spray,suspension [id number] completed fluticasone propionate 0.05 MG/ACTUAT Metered Dose Nasal [place] [facility] ([facility]) quetiapine 50 MG Oral Tablet quetiapine 50 mg tablet quetiapine 50 mg tablet completed quetiapine 50 MG Oral Tablet [facility] ([facility]) 12 HR Orphenadrine Citrate 100 MG Extend ed Release Oral Tablet orphenadrine citrate ER 100 mg tablet,extended release TAKE ONE TABLET BY MOUTH TWICE A DAY NEEDED FOR MUSCLE SPASMS orphenadrine citrate ER 100 mg tablet,ex tended release TAKE ONE TABLET BY MOUTH TWICE A DAY NEEDED FOR MUSCLE SPASMS completed 12 HR orphenad rine citrate 100 MG Extended Release Oral Tablet [facility] ([facility]) fluticasone propionate 50 mcg/actuation nasal spray,suspension [id number] completed fluticasone propionate 0.05 MG/ACTUAT Metered Dose Nasal [place] [facility] ([facility]) tizanidine 4 MG Oral Tablet tizanidine 4 mg tablet TAKE ONE TABLET BY MOUTH TWICE A DAY tizanidine 4 mg tablet TAKE ONE TABLET BY MOUTH TWICE A DAY completed tizanidine 4 MG Oral Tabl et [facility] ([facility]) Dexamethasone 4 MG Oral Tablet dexamethasone 4 mg tabl et dexamethasone 4 mg tablet completed dexamethasone 4 MG Oral Tablet [facility] ([facility]) quetiapine 50 MG Oral Tablet quetiapine 50 mg tablet quetiapine 50 mg tablet completed quetiapine 50 MG Oral Tablet [facility] ([facility]) fluticasone propionate 50 mcg/actuation nasal spray,suspension [id number] completed fluticasone propionate 0.05 MG/ACTUAT Metered Dose Nasal [place] [facility] ([facility]) fluticasone propionate 50 mcg/actuation nasal spray,suspension [id number] completed fluticasone propionate 0.05 MG/ACTUAT Metered Dose Nasal [place] [facility] ([facility]) Baclofen 10 MG Oral Tablet baclofen 10 mg tablet baclofen 10 mg tablet completed baclofen 10 MG Oral Table t [facility] ([facility]) oxcarbazepine 150 MG Oral Tablet oxcarbazepine 150 mg tablet oxcarbazepine 150 mg tablet completed oxcarbazepin e 150 MG Oral Tablet [facility] ([facility]) Fluoxetine 10 MG Oral Capsule fluoxetine 10 mg capsule TAKE ONE CAPSULE BY MOUTH EVERY DAY fluoxetine 10 mg capsule TAKE ONE CAPSULE BY MOUTH EVERY DAY completed fluoxetine 10 MG Oral Cap kamran [facility] ([facility]) tizanidine 4 MG Oral Tablet tizanidine 4 mg tablet TAKE ONE TABLET BY MOUTH TWICE A DAY tizanidine 4 mg tablet TAKE ONE TABLET BY MOUTH TWICE A DAY completed tizanidine 4 MG Oral Tabl et [facility] ([facility]) quetiapine 100 MG Oral Tablet quetiapine 100 mg tablet TAKE 1 1/2 TABLETS BY MOUTH AT BEDTIME quetiapine 100 mg tablet TAKE 1 1/2 TA BLETS BY MOUTH AT BEDTIME completed quetiapine 100 MG Oral Tablet [facility] ([facility]) oxcarbazepine 150 MG Oral Tablet oxcarbazepine 150 mg tablet oxcarbazepine 150 mg tablet completed oxcarbazepin e 150 MG Oral Tablet [facility] ([facility]) tizanidine 4 MG Oral Tablet tizanidine 4 mg tablet TAKE ONE TABLET BY MOUTH TWICE A DAY tizanidine 4 mg tablet TAKE ONE TABLET BY MOUTH TWICE A DAY completed tizanidine 4 MG Oral Tabl et [facility] ([facility]) benzonatate 100 MG Oral Capsule benzonatate 100 mg cap kamran benzonatate 100 mg capsule completed benzonatate 10 0 MG Oral Capsule [facility] ([facility]) benzonatate 100 MG Oral Capsule benzonatate 100 mg cap kamran benzonatate 100 mg capsule completed benzonatate 10 0 MG Oral Capsule [facility] ([facility]) Dexamethasone 4 MG Oral Tablet dexamethasone 4 mg tabl et dexamethasone 4 mg tablet completed dexamethasone 4 MG Oral Tablet [facility] ([facility]) Dexamethasone 4 MG Oral Tablet dexamethasone 4 mg tabl et dexamethasone 4 mg tablet completed dexamethasone 4 MG Oral Tablet [facility] ([facility]) quetiapine 50 MG Oral Tablet quetiapine 50 mg tablet quetiapine 50 mg tablet completed quetiapine 50 MG Oral Tablet [facility] ([facility]) Hydrochlorothiazide 25 MG / Triamterene 37.5 MG Oral Tablet triamterene 37.5 mg- hydrochlorothiazide 25 mg tablet TAKE ONE TABLET BY MOUTH EVERY DAY triamterene 37.5 mg-hydrochlorothiazide 25 mg tablet TAKE ONE TABLET BY MOUTH EVERY DAY completed hydrochlor othiazide 25 MG / triamterene 37.5 MG Oral Tablet [facility] ([facility]) tizanidine 4 MG Oral Tablet tizanidine 4 mg tablet TAKE ONE TABLET BY MOUTH TWICE A DAY tizanidine 4 mg tablet TAKE ONE TABLET BY MOUTH TWICE A DAY completed tizanidine 4 MG Oral Tabl et [facility] ([facility]) Acetaminophen 325 MG / Hydrocodone Chilo trate [...] hydrocodone bitartrate 5 MG Oral Tablet [facility] ([facility]) tizanidine 4 MG Oral Tablet tizanidine 4 mg tablet TAKE ONE TABLET BY MOUTH TWICE A DAY tizanidine 4 mg tablet TAKE ONE TABLET BY MOUTH TWICE A DAY completed tizanidine 4 MG Oral Tabl et [facility] ([facility]) Baclofen 10 MG Oral Tablet baclofen 10 mg tablet baclofen 10 mg tablet completed baclofen 10 MG Oral Table t [facility] ([facility]) 12 HR Orphenadrine Citrate 100 MG Extend ed Release Oral Tablet orphenadrine citrate ER 100 mg tablet,extended release TAKE ONE TABLET BY MOUTH TWICE A DAY NEEDED FOR MUSCLE SPASMS orphenadrine citrate ER 100 mg tablet,ex tended release TAKE ONE TABLET BY MOUTH TWICE A DAY NEEDED FOR MUSCLE SPASMS completed 12 HR orphenad rine citrate 100 MG Extended Release Oral Tablet [facility] ([facility]) 12 HR Orphenadrine Citrate 100 [...] ine 100 MG Extended Release Oral Tablet [facility] ([facility]) benzonatate 100 MG Oral Capsule benzonatate 100 mg cap kamran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 Problem 06/29/2020 04:43: 42 PM EDT JOHANA ([facility]) 270177589 Clinical finding Clinical Finding Problem 06/29/2020 04 :43:42 PM EDT JOHANA ([facility]) 675083258 SNOMED CT Concept SNOMED CT Concept Problem 06/29 04:43:42 PM EDT JOHANA ([facility]) 896602370 Arthropathy Arthropathy Problem 06/29/2020 04:43:42 PM EDT JOHANA ([facility]) 21404971 Hypertensive disorder Hypertensive Disorder Problem 06/29/2020 04:43:42 PM EDT JOHANA ([facility]) 70483340 Depressive disorder Depressive Disorder Problem 1 04:43:42 PM EDT JOHANA ([facility]) 60278982 Hypothyroidism Hypothyroidism Problem 06/29/2020 04:43: 42 PM EDT JOHANA ([facility]) 93845976 Hypertensive disorder Hypertensive Disorder Problem 06/29/2020 04:43:42 PM EDT JOHANA ([facility]) 57939925 Depressive disorder Depressive Disorder Problem 1 04:43:42 PM EDT JOHANA ([facility]) 41696862 Hypothyroidism Hypothyroidism Problem 06/29/2020 04:43: 42 PM EDT JOHANA ([facility]) 481748538 Asthma Asthma Problem 06/29/2020 04:43:41 PM ED T JOHANA ([facility]) 405360364 Asthma Asthma Problem 06/29/2020 04:43:41 PM ED T JOHANA ([facility]) 114308692 Asthma Asthma Problem 06/29/2020 04:43:41 PM ED T JOHANA ([facility]) 041010816 Asthma Asthma Problem 06/29/2020 04:43:41 PM ED T JOHANA ([facility]) 345428370 Asthma Asthma Problem 06/29/2020 04:43:41 PM ED T JOHANA ([facility]) 138774517 Asthma Asthma Problem 06/29/2020 04:43:41 PM ED T JOHANA ([facility]) 792553439 Asthma Asthma Problem 06/29/2020 04:43:41 PM ED T JOHANA ([facility]) 030330584 Asthma Asthma Problem 06/29/2020 04:43:41 PM ED T JOHANA ([facility]) 993762697 Asthma Asthma Problem 06/29/2020 04:43:41 PM ED T [place] ([facility]) 729.5 Pain in left foot Pain in left foot 06/19/2020 12:10:55 PM EDT [facility] Surgeries/Procedures Procedure Description Date Indications Data Source(s) OFFICE OUTPATIENT VISIT 40 MINUTES 02/19/2021 12:00:00 AM EDT MEDENT ([facility] ) Physical Therapy Eval - Low Complexity 02/07/2021 12:0 0:00 AM EDT MEDENT ([facility] ) RADIOLOGIC EXAM KNEE COMPLETE 4/MORE VIEWS 02/01/2021 12:00:00 AM EDT MEDENT ([facility] ) OFFICE OUTPATIENT VISIT 25 MINUTES 02/01/2021 12:00:00 AM EDT MEDENT ([facility] ) RADEX SPINE CRV COMPL W/OBLQ&FLEX&/XTN STDS 01/18/2021 12:00:00 AM EDT MEDENT ([facility] ) OFFICE OUTPATIENT VISIT 25 MINUTES 01/18/2021 12:00:00 AM EDT MEDENT ([facility] ) MHC Telemed E/M Lvl 3--Est pt 10/25/2020 12:00:00 AM EST - 10/25/2020 12:00:00 AM EST [facility] ([facility]) MHC Telemed E/M Lvl 3--Est pt 10/25/2020 12:00:[address] [facility] ([facility]) Extended Individual Psychotherapy - 45 min 09/11/2020 12:00:00 AM EST - 09/11/2020 12:00:00 AM EST [facility] ([facility]) Extended Individual Psychotherapy - 45 min 12:00:00 AM EST [facility] ([facility]) MHC Telemed E/M Lvl 3--Est pt 08/17/2020 12:00:00 AM EST - 08/17/2020 12:00:00 AM EST [facility] ([facility]) Telemed A/O 30" 08/17/2020 12:00:00 AM EST [facility] ([facility]) MHC Telemed E/M Lvl 3--Est pt 08/17/2020 12:00:[address] [facility] ([facility]) Strapping Foot Or Ankle 08/02/2020 12:00:00 AM EST MEDENT ([facility] RADEX FOOT COMPLETE MINIMUM 3 VIEWS 08/02/2020 12:00:0 0 AM EST MEDENT ([facility] Medication: Oxycodone HCL Tab 10mg Orally 07/31/2020 1 2:00:00 AM EST eCW1 ([facility]) Unclassified drugs 07/31/2020 12:00:00 AM EST eCW1 ([facility]) [id number]"Psychotherapy 0 12:00:00 AM EDT - 07/10/2020 12:00:00 AM EDT [facility] ([facility]) [id number]"Psychotherapy 07/10/2020 12:00:00 AM EDT Acc[facility] ([facility]) TEMPMHCTelemed 30" Psychotherapy 020 12:00:00 AM EDT - 06/19/2020 12:00:00 AM EDT Accumedic ([facility]) TEMPMHCTelemed 30" Psychotherapy 06/19/2020 12:00:00 A M EDT [facility] ([facility]) MHC Telemed E/M Lvl 3--Est pt 06/15/2020 12:00:00 AM EDT - 06/15/2020 12:00:00 AM EDT [facility] ([facility]) Telemed A/O 30" 06/15/2020 12:00:00 AM EDT Accumedic ([facility]) MHC Telemed E/M Lvl 3--Est pt 06/15/2020 12:00:00 AM E DT [facility] ([facility]) Results ID Date Data Source [id number] 06/21/2021 12:00:00 AM EDT [facility]) Name Value Range Interpretation Code Description Data Larissa rce(s) Supporting Document(s) Thyrotropin [Units/volume] in Serum or Plasma 3.04 mIU/L Tsh [facility]) ID Date Data Source [id number] 06/21/2021 12:00:00 AM EDT [facility]) Name Value Range Interpretation Code Description Data Larissa rce(s) Supporting Document(s) Glucose [Mass/volume] in Serum or Plasma 88 mg/dL 65-99 Glucose [facility]) Urea nitrogen [Mass/volume] in Serum or Plasma 15 mg/dL 7-25 Urea Nitrogen (BUN) [facility]) Creatinine [Mass/volume] in Serum or Plasma 0.88 mg/dL 0.50-1.10 Creatinine [facility]) Glomerular filtration rate/1.73 sq M.pre dicted among non-blacks [Volume Rate/Area] in Serum, Plasma or Blood by Creatinine-based formula (CKD-EPI) 82 mL/min/1.73m2 > or = 60 eGFR Non-afr. [place]ijani JOHNAA ([facility]) Urea nitrogen/Creatinine [Mass Ratio] in Serum or Plasma not applic able 6-22 BUN/creatinine Ratio [place] ([facility]) Glomerular filtration rate/1.73 sq M.pre dicted among blacks [Volume Rate/Area] in Serum, Plasma or Blood by Creatinine-based formula (CKD-EPI) 95 mL/min/1.73m2 > or = 60 eGFR JOHANA ([facility]) Sodium [Moles/volume] in Serum or Plasma 139 mmol/L 135-146 Sodium [place] ([facility]) Potassium [Moles/volume] in Serum or Plasma 3.4 mmol/L 3.5-5.3 Below low normal Potassium JOHANA ([facility]) Chloride [Moles/volume] in Serum or Plasma 102 mmol/L 98-110 Chloride JOHANA ([facility]) Carbon dioxide, total [Moles/volume] in Serum or Plasma 28 mmol/L 20-32 Carbon Dioxide JOHANA ([facility]) Calcium [Mass/volume] in Serum or Plasma 9.6 mg/dL 8.6-10.2 Calcium [place] ([facility]) Protein [Mass/volume] in Serum or Plasma 6.8 g/dL 6.1-8.1 Protein, Total [place] ([facility]) Albumin [Mass/volume] in Serum or Plasma 4.6 g/dL 3.6-5.1 Albumin [place] ([facility]) Globulin [Mass/volume] in Serum by calculation 2.2 g/dL_(calc) 1.9- 3.7 Globulin [place] ([facility]) Albumin/Globulin [Mass Ratio] in Serum or Plasma 2.1 (calc) 1.0-2 .5 Albumin/globulin Ratio [place] ([facility]) Bilirubin.total [Mass/volume] in Serum or Plasma 0.5 mg/dL 0.2-1 .2 Bilirubin, Total [place] ([facility]) Alkaline phosphatase [Enzymatic activity/volume] in Serum or Plasma 54 U/L 31-125 Alkaline Phosphatase JOHANA ([facility]) Aspartate aminotransferase [Enzymatic activity/volume] in Serum or Plasma 15 U/L 10-30 Ast JOHANA ([facility]) Alanine aminotransferase [Enzymatic activity/volume] in Seru m or Plasma 12 U/L 6-29 Alt JOHANA ([facility]) ID Date Data Source [id number] 06/21/2021 12:00:00 AM EDT [place] ([facility]) Name Value Range Interpretation Code Description Data Larissa rce(s) Supporting Document(s) Cholesterol [Mass/volume] in Serum or Plasma 224 mg/dL <200 Above high normal Cholesterol, Total JOHANA ([facility]) Cholesterol in HDL [Mass/volume] in Serum or Plasma 43 mg/dL > or = 50 Below low normal HDL Cholesterol JOHANA ([facility]) Triglyceride [Mass/volume] in Serum or Plasma 145 mg/dL <150 Triglycerides JOHANA ([facility]) Cholesterol in LDL [Mass/volume] in Serum or Plasma by calculation 154 mg/dL_(calc) Above high normal LDL-cholesterol JOHANA ([facility]) Cholesterol.total/Cholesterol in HDL [Mass Ratio] in Serum o r Plasma 5.2 (calc) <5.0 Above high normal Chol/hdlc Ratio JOHANA ([facility]) Cholesterol non HDL [Mass/volume] in Serum or Plasma 181 mg/dL_( calc) <130 Above high normal Non HDL Cholesterol JOHANA ([facility]) ID Date Data Source [id number] 06/21/2021 12:00:00 AM EDT [facility]) Name Value Range Interpretation Code Description Data Larissa rce(s) Supporting Document(s) Thyrotropin [Units/volume] in Serum or Plasma 3.04 mIU/L [facility] ID Date Data Source [id number] 06/21/2021 12:00:00 AM EDT [facility]) Name Value Range Interpretation Code Description Data Larissa rce(s) Supporting Document(s) Glucose [Mass/volume] in Serum or Plasma 88 mg/dL 65-99 Glucose JOHANA ([facility]) Urea nitrogen [Mass/volume] in Serum or Plasma 15 mg/dL 7-25 Urea Nitrogen (BUN) JOHANA ([facility]) Creatinine [Mass/volume] in Serum or Plasma 0.88 mg/dL 0.50-1.10 Creatinine JOHANA ([facility]) Glomerular filtration rate/1.73 sq M.pre dicted among non-blacks [Volume Rate/Area] in Serum, Plasma or Blood by Creatinine-based formula (CKD-EPI) 82 mL/min/1.73m2 > or = 60 eGFR Non-afr. [place]ijani JOHANA ([facility]) Glomerular filtration rate/1.73 sq M.pre dicted among blacks [Volume Rate/Area] in Serum, Plasma or Blood by Creatinine-based formula (CKD-EPI) 95 mL/min/1.73m2 > or = 60 eGFR JOHANA ([facility]) Urea nitrogen/Creatinine [Mass Ratio] in Serum or Plasma not applic able 6-22 BUN/creatinine Ratio JOHANA ([facility]) Sodium [Moles/volume] in Serum or Plasma 139 mmol/L 135-146 Sodium [place] ([facility]) Potassium [Moles/volume] in Serum or Plasma 3.4 mmol/L 3.5-5.3 Below low normal Potassium [facility]) Chloride [Moles/volume] in Serum or Plasma 102 mmol/L 98-110 Chloride [place] ([facility]) Carbon dioxide, total [Moles/volume] in Serum or Plasma 28 mmol/L 20-32 Carbon Dioxide [facility]) Calcium [Mass/volume] in Serum or Plasma 9.6 mg/dL 8.6-10.2 Calcium [place] ([facility]) Protein [Mass/volume] in Serum or Plasma 6.8 g/dL 6.1-8.1 Protein, Total [facility]) Albumin [Mass/volume] in Serum or Plasma 4.6 g/dL 3.6-5.1 Albumin [facility]) Globulin [Mass/volume] in Serum by calculation 2.2 g/dL_(calc) 1.9- 3.7 Globulin [place] ([facility]) Albumin/Globulin [Mass Ratio] in Serum or Plasma 2.1 (calc) 1.0-2 .5 Albumin/globulin Ratio [facility]) Bilirubin.total [Mass/volume] in Serum or Plasma 0.5 mg/dL 0.2-1 .2 Bilirubin, Total [facility]) Alkaline phosphatase [Enzymatic activity/volume] in Serum or Plasma 54 U/L 31-125 Alkaline Phosphatase [facility]) Alanine aminotransferase [Enzymatic activity/volume] in Seru m or Plasma 12 U/L 6-29 Alt [place] ([facility]) Aspartate aminotransferase [Enzymatic activity/volume] in Serum or Plasma 15 U/L 10-30 Ast JOHANA ([facility]) ID Date Data Source [id number] 06/21/2021 12:00:00 AM EDT JOHANA ([facility]) Name Value Range Interpretation Code Description Data Larissa rce(s) Supporting Document(s) Cholesterol [Mass/volume] in Serum or Plasma 224 mg/dL <200 Above high normal Cholesterol, Total JOHANA ([facility]) Cholesterol in HDL [Mass/volume] in Serum or Plasma 43 mg/dL > or = 50 Below low normal HDL Cholesterol JOHANA ([facility]) Triglyceride [Mass/volume] in Serum or Plasma 145 mg/dL <150 Triglycerides JOHANA ([facility]) Cholesterol in LDL [Mass/volume] in Serum or Plasma by calculation 154 mg/dL_(calc) Above high normal LDL-cholesterol JOHANA ([facility]) Cholesterol.total/Cholesterol in HDL [Mass Ratio] in Serum o r Plasma 5.2 (calc) <5.0 Above high normal Chol/hdlc Ratio JOHANA ([facility]) Cholesterol non HDL [Mass/volume] in Serum or Plasma 181 mg/dL_( calc) <130 Above high normal Non HDL Cholesterol JOHANA ([facility]) ID Date Data Source [id number] 05/03/2021 12:00:00 AM EDT [facility] ([facility]) Name Value Range Interpretation Code Description Data Larissa rce(s) Supporting Document(s) UA URINALYSIS eCW1 ([facility]) ID Date Data Source [id number] 05/02/2021 02:16:00 PM EDT [facility]) Name Value Range Interpretation Code Description Data Larissa rce(s) Supporting Document(s) Glucose [Mass/volume] in Serum or Plasma 92 mg/dL 65-99 Glucose JOHANA ([facility]) Urea nitrogen [Mass/volume] in Serum or Plasma 14 mg/dL 7-25 Urea Nitrogen (BUN) JOHANA ([facility]) Glomerular filtration rate/1.73 sq M.pre dicted among non-blacks [Volume Rate/Area] in Serum, Plasma or Blood by Creatinine-based formula (CKD-EPI) 70 mL/min/1.73m2 > or = 60 eGFR Non-afr. [place]ij[place] JOHANA ([facility]) Creatinine [Mass/volume] in Serum or Plasma 1.00 mg/dL 0.50-1.10 Creatinine [place] ([facility]) Glomerular filtration rate/1.73 sq M.pre dicted among blacks [Volume Rate/Area] in Serum, Plasma or Blood by Creatinine-based formula (CKD-EPI) 82 mL/min/1.73m2 > or = 60 eGFR JOHANA ([facility]) Urea nitrogen/Creatinine [Mass Ratio] in Serum or Plasma not applic able 6-22 BUN/creatinine Ratio [place] ([facility]) Sodium [Moles/volume] in Serum or Plasma 139 mmol/L 135-146 [facility] Potassium [Moles/volume] in Serum or Plasma 3.4 mmol/L 3.5-5.3 Below low normal Potassium JOHANA ([facility]) Chloride [Moles/volume] in Serum or Plasma 96 mmol/L 98-110 Below low normal Chloride JOHANA ([facility]) Carbon dioxide, total [Moles/volume] in Serum or Plasma 34 mmol/ L 20-32 Above high normal Carbon Dioxide [place] ([facility]) Calcium [Mass/volume] in Serum or Plasma 9.5 mg/dL 8.6-10.2 Calcium [facility]) ID Date Data Source [id number] 05/02/2021 02:16:00 PM EDT [facility]) Name Value Range Interpretation Code Description Data Larissa rce(s) Supporting Document(s) Glucose [Mass/volume] in Serum or Plasma 92 mg/dL 65-99 Glucose [place] ([facility]) Urea nitrogen [Mass/volume] in Serum or Plasma 14 mg/dL 7-25 Urea Nitrogen (BUN) [facility]) Glomerular filtration rate/1.73 sq M.pre dicted among non-blacks [Volume Rate/Area] in Serum, Plasma or Blood by Creatinine-based formula (CKD-EPI) 70 mL/min/1.73m2 > or = 60 eGFR Non-afr. [place] JOHANA ([facility]) Creatinine [Mass/volume] in Serum or Plasma 1.00 mg/dL 0.50-1.10 Creatinine [place] ([facility]) Glomerular filtration rate/1.73 sq M.pre dicted among blacks [Volume Rate/Area] in Serum, Plasma or Blood by Creatinine-based formula (CKD-EPI) 82 mL/min/1.73m2 > or = 60 eGFR JOHANA ([facility]) Urea nitrogen/Creatinine [Mass Ratio] in Serum or Plasma not applic able 6-22 BUN/creatinine Ratio [place] ([facility]) Sodium [Moles/volume] in Serum or Plasma 139 mmol/L 135-146 Sodium [facility]) Potassium [Moles/volume] in Serum or Plasma 3.4 mmol/L 3.5-5.3 Below low normal Potassium JOHANA ([facility]) Carbon dioxide, total [Moles/volume] in Serum or Plasma 34 mmol/ L 20-32 Above high normal Carbon Dioxide JOHANA ([facility]) Chloride [Moles/volume] in Serum or Plasma 96 mmol/L 98-110 Below low normal Chloride [place] ([facility]) Calcium [Mass/volume] in Serum or Plasma 9.5 mg/dL 8.6-10.2 Calcium [facility]) ID Date Data Source [id number] 05/02/2021 02:16:00 PM EDT [facility]) Name Value Range Interpretation Code Description Data Larissa rce(s) Supporting Document(s) Glucose [Mass/volume] in Serum or Plasma 92 mg/dL 65-99 Glucose [facility]) Urea nitrogen [Mass/volume] in Serum or Plasma 14 mg/dL 7-25 Urea Nitrogen (BUN) [facility]) Creatinine [Mass/volume] in Serum or Plasma 1.00 mg/dL 0.50-1.10 Creatinine JOHANA ([facility]) Glomerular filtration rate/1.73 sq M.pre dicted among non-blacks [Volume Rate/Area] in Serum, Plasma or Blood by Creatinine-based formula (CKD-EPI) 70 mL/min/1.73m2 > or = 60 eGFR Non-afr. [place] JOHANA ([facility]) Urea nitrogen/Creatinine [Mass Ratio] in Serum or Plasma not applic able 6-22 BUN/creatinine Ratio JOHANA ([facility]) Glomerular filtration rate/1.73 sq M.pre dicted among blacks [Volume Rate/Area] in Serum, Plasma or Blood by Creatinine-based formula (CKD-EPI) 82 mL/min/1.73m2 > or = 60 eGFR JOHANA ([facility]) Sodium [Moles/volume] in Serum or Plasma 139 mmol/L 135-146 Sodium [place] ([facility]) Potassium [Moles/volume] in Serum or Plasma 3.4 mmol/L 3.5-5.3 Below low normal Potassium JOHANA ([facility]) Chloride [Moles/volume] in Serum or Plasma 96 mmol/L 98-110 Below low normal Chloride JOHANA ([facility]) Carbon dioxide, total [Moles/volume] in Serum or Plasma 34 mmol/ L 20-32 Above high normal Carbon Dioxide JOHANA ([facility]) Calcium [Mass/volume] in Serum or Plasma 9.5 mg/dL 8.6-10.2 Calcium [place] ([facility]) ID Date Data Source [id number] 05/02/2021 02:16:00 PM EDT [place] ([facility]) Name Value Range Interpretation Code Description Data Larissa rce(s) Supporting Document(s) Glucose [Mass/volume] in Serum or Plasma 92 mg/dL 65-99 [facility] Urea nitrogen [Mass/volume] in Serum or Plasma 14 mg/dL 7-25 [facility] ([facility]UN) [facility] Creatinine [Mass/volume] in Serum or Plasma 1.00 mg/dL 0.50-1.10 Creatinine [facility]) Glomerular filtration rate/1.73 sq M.pre dicted among non-blacks [Volume Rate/Area] in Serum, Plasma or Blood by Creatinine-based formula (CKD-EPI) 70 mL/min/1.73m2 > or = 60 eGFR Non-afr. [place] JOHANA ([facility]) Glomerular filtration rate/1.73 sq M.pre dicted among blacks [Volume Rate/Area] in Serum, Plasma or Blood by Creatinine-based formula (CKD-EPI) 82 mL/min/1.73m2 > or = 60 eGFR JOHANA ([facility]) Urea nitrogen/Creatinine [Mass Ratio] in Serum or Plasma not applic able 6-22 BUN/creatinine Ratio [place] ([facility]) Sodium [Moles/volume] in Serum or Plasma 139 mmol/L 135-146 Sodium [place] ([facility]) Potassium [Moles/volume] in Serum or Plasma 3.4 mmol/L 3.5-5.3 Below low normal Potassium [place] ([facility]) Chloride [Moles/volume] in Serum or Plasma 96 mmol/L 98-110 Below low normal Chloride [place] ([facility]) Carbon dioxide, total [Moles/volume] in Serum or Plasma 34 mmol/ L 20-32 Above high normal Carbon Dioxide [place] ([facility]) Calcium [Mass/volume] in Serum or Plasma 9.5 mg/dL 8.6-10.2 Calcium [place] ([facility]) ID Date Data Source [id number] 04/24/2021 05:47:00 AM EDT [facility]) Name Value Range Interpretation Code Description Data Larissa rce(s) Supporting Document(s) magnesium level 2.5 mg/dL 1.8-2.4 Above high normal Magnesium Lev el [facility]) ID Date Data Source [id number] 04/24/2021 05:47:00 AM EDT [facility]) Name Value Range Interpretation Code Description Data Larissa rce(s) Supporting Document(s) glucose, fasting 111 mg/dL 70-100 Above high normal Glucose, Fas ting JOHANA ([facility]) blood urea nitrogen 32 mg/dL 7-18 Above high normal Blood Ure a Nitrogen JOHANA ([facility]) creatinine for GFR 1.07 mg/dL 0.55-1.30 Creatinine for GF R JOHANA ([facility]) glomerular filtration rate > 60.0 >58 Glomerula r Filtration Rate JOHANA ([facility]) sodium level 136 mEq/L 136-145 Sodium Level JOHANA ([facility]) potassium serum 3.6 mEq/L 3.5-5.1 Potassium Serum ATHE ([facility]) chloride level 96 mEq/L 98-107 Below low normal Chloride Level [place] ([facility]) anion gap 10 mEq/L 8-16 Anion Gap JOHANA ([facility]) carbon dioxide level 30 mEq/L 21-32 Carbon Dioxide Level JOHANA ([facility]) calcium level 9.5 mg/dL 8.5-10.1 Calcium Level [place] ( [facility]) ID Date Data Source [id number] 04/24/2021 05:47:00 AM EDT [place] ([facility]) Name Value Range Interpretation Code Description Data Larissa rce(s) Supporting Document(s) white blood count 13.8 10 4.0-10.0 Above high normal White Blood Count JOHANA ([facility]) red blood count 4.57 10 4.00-5.40 Red Blood Count ATHE ([facility]) hemoglobin 13.1 g/dL 12.0-15.5 Hemoglobin JOHANA ([facility]) hematocrit 41.2 % 36.0-47.0 Hematocrit JOHANA ([facility]) mean corpuscular volume 90.2 fL 80.0-96.0 Mean Corpusc ular Volume JOHANA ([facility]) mean corpuscular HGB conc 31.8 g/dL 32.0-36.5 Below low lin l Mean Corpuscular HGB Conc JOHANA ([facility]) mean corpuscular hemoglobin 28.7 pg 27.0-33.0 Mean Cor puscular Hemoglobin JOHANA ([facility]) red cell distribution width 15.1 % 11.5-14.5 Above high no rmal Red Cell Distribution Width JOHANA ([facility]) platelet count, automated 409 10 150-450 Platelet C ount, Automated JOHANA ([facility]) nucleated red blood cell % 0.0 % 0-0 Nucleated Red Blood Cell % [place] ([facility]) ID Date Data Source [id number] 04/24/2021 05:47:00 AM EDT [facility]) Name Value Range Interpretation Code Description Data Larissa rce(s) Supporting Document(s) magnesium level 2.5 mg/dL 1.8-2.4 Above high normal Magnesium Lev el [facility]) ID Date Data Source [id number] 04/24/2021 05:47:00 AM EDT [facility]) Name Value Range Interpretation Code Description Data Larissa rce(s) Supporting Document(s) glucose, fasting 111 mg/dL 70-100 Above high normal Glucose, Fas ting [place] ([facility]) blood urea nitrogen 32 mg/dL 7-18 Above high normal Blood Ure a Nitrogen [place] ([facility]) creatinine for GFR 1.07 mg/dL 0.55-1.30 Creatinine for GF R [place] ([facility]) glomerular filtration rate > 60.0 >58 Glomerula r Filtration Rate JOHANA ([facility]) sodium level 136 mEq/L 136-145 Sodium Level JOHANA ([facility]) potassium serum 3.6 mEq/L 3.5-5.1 Potassium Serum ATH NA [facility]) chloride level 96 mEq/L 98-107 Below low normal Chloride Level [place] ([facility]) carbon dioxide level 30 mEq/L 21-32 Carbon Dioxide Level JOHANA ([facility]) anion gap 10 mEq/L 8-16 Anion Gap JOHANA ([facility]) calcium level 9.5 mg/dL 8.5-10.1 Calcium Level [place] ( [facility]) ID Date Data Source [id number] 04/24/2021 05:47:00 AM EDT JOHANA ([facility]) Name Value Range Interpretation Code Description Data Larissa rce(s) Supporting Document(s) white blood count 13.8 10 4.0-10.0 Above high normal White Blood Count JOHANA ([facility]) red blood count 4.57 10 4.00-5.40 Red Blood Count ATHE ([facility]) hemoglobin 13.1 g/dL 12.0-15.5 Hemoglobin JOHANA ([facility]) hematocrit 41.2 % 36.0-47.0 Hematocrit JOHANA ([facility]) mean corpuscular volume 90.2 fL 80.0-96.0 Mean Corpusc ular Volume JOHANA ([facility]) mean corpuscular hemoglobin 28.7 pg 27.0-33.0 Mean Cor puscular Hemoglobin JOHANA ([facility]) mean corpuscular HGB conc 31.8 g/dL 32.0-36.5 Below low lin l Mean Corpuscular HGB Conc JOHANA ([facility]) red cell distribution width 15.1 % 11.5-14.5 Above high no rmal Red Cell Distribution Width JOHANA ([facility]) platelet count, automated 409 10 150-450 Platelet C ount, Automated JOHANA ([facility]) nucleated red blood cell % 0.0 % 0-0 Nucleated Red Blood Cell % [place] ([facility]) ID Date Data Source [id number] 04/24/2021 05:47:00 AM EDT [place] ([facility]) Name Value Range Interpretation Code Description Data Larissa rce(s) Supporting Document(s) magnesium level 2.5 mg/dL 1.8-2.4 Above high normal Magnesium Lev el JOHANA ([facility]) ID Date Data Source [id number] 04/24/2021 05:47:00 AM EDT [place] ([facility]) Name Value Range Interpretation Code Description Data Larissa rce(s) Supporting Document(s) glucose, fasting 111 mg/dL 70-100 Above high normal Glucose, Fas ting JOHANA ([facility]) blood urea nitrogen 32 mg/dL 7-18 Above high normal Blood Ure a Nitrogen JOHANA ([facility]) creatinine for GFR 1.07 mg/dL 0.55-1.30 Creatinine for GF R JOHANA ([facility]) glomerular filtration rate > 60.0 >58 Glomerula r Filtration Rate JOHANA ([facility]) sodium level 136 mEq/L 136-145 Sodium Level JOHANA ([facility]) potassium serum 3.6 mEq/L 3.5-5.1 Potassium Serum ATHE NA ([facility]) chloride level 96 mEq/L 98-107 Below low normal Chloride Level [place] ([facility]) carbon dioxide level 30 mEq/L 21-32 Carbon Dioxide Level JOHANA ([facility]) anion gap 10 mEq/L 8-16 Anion Gap JOHANA ([facility]) calcium level 9.5 mg/dL 8.5-10.1 Calcium Level [place] ( [facility]) ID Date Data Source [id number] 04/24/2021 05:47:00 AM EDT [place] ([facility]) Name Value Range Interpretation Code Description Data Larissa rce(s) Supporting Document(s) white blood count 13.8 10 4.0-10.0 Above high normal White Blood Count JOHANA ([facility]) red blood count 4.57 10 4.00-5.40 Red Blood Count ATHE NA ([facility]) hemoglobin 13.1 g/dL 12.0-15.5 Hemoglobin JOHANA ([facility]) hematocrit 41.2 % 36.0-47.0 Hematocrit JOHANA ([facility]) mean corpuscular volume 90.2 fL 80.0-96.0 Mean Corpusc ular Volume JOHANA ([facility]) mean corpuscular hemoglobin 28.7 pg 27.0-33.0 Mean Cor puscular Hemoglobin [place] ([facility]) mean corpuscular HGB conc 31.8 g/dL 32.0-36.5 Below low lin l Mean Corpuscular HGB Conc [place] ([facility]) red cell distribution width 15.1 % 11.5-14.5 Above high no rmal Red Cell Distribution Width [place] ([facility]) platelet count, automated 409 10 150-450 Platelet C ount, Automated JOHANA ([facility]) nucleated red blood cell % 0.0 % 0-0 Nucleated Red Blood Cell % [place] ([facility]) ID Date Data Source [id number] 04/24/2021 05:47:00 AM EDT [facility]) Name Value Range Interpretation Code Description Data Larissa rce(s) Supporting Document(s) magnesium level 2.5 mg/dL 1.8-2.4 Above high normal Magnesium Lev el [facility]) ID Date Data Source [id number] 04/24/2021 05:47:00 AM EDT [facility]) Name Value Range Interpretation Code Description Data Larissa rce(s) Supporting Document(s) glucose, fasting 111 mg/dL 70-100 Above high normal Glucose, Fas ting [place] ([facility]) blood urea nitrogen 32 mg/dL 7-18 Above high normal Blood Ure a Nitrogen [place] ([facility]) creatinine for GFR 1.07 mg/dL 0.55-1.30 Creatinine for GF R JOHANA ([facility]) glomerular filtration rate > 60.0 >58 Glomerula r Filtration Rate JOHANA ([facility]) sodium level 136 mEq/L 136-145 Sodium Level JOHANA ([facility]) potassium serum 3.6 mEq/L 3.5-5.1 Potassium Serum ATH NA ([facility]) chloride level 96 mEq/L 98-107 Below low normal Chloride Level [place] ([facility]) carbon dioxide level 30 mEq/L 21-32 Carbon Dioxide Level [place] ([facility]) anion gap 10 mEq/L 8-16 Anion Gap JOHANA ([facility]) calcium level 9.5 mg/dL 8.5-10.1 Calcium Level JOHANA ( [facility]) ID Date Data Source [id number] 04/24/2021 05:47:00 AM EDT JOHANA ([facility]) Name Value Range Interpretation Code Description Data Larissa rce(s) Supporting Document(s) white blood count 13.8 10 4.0-10.0 Above high normal White Blood Count JOHANA ([facility]) red blood count 4.57 10 4.00-5.40 Red Blood Count ATHE ([facility]) hemoglobin 13.1 g/dL 12.0-15.5 Hemoglobin JOHANA ([facility]) hematocrit 41.2 % 36.0-47.0 Hematocrit JOHANA ([facility]) mean corpuscular volume 90.2 fL 80.0-96.0 Mean Corpusc ular Volume JOHANA ([facility]) mean corpuscular hemoglobin 28.7 pg 27.0-33.0 Mean Cor puscular Hemoglobin JOHANA ([facility]) mean corpuscular HGB conc 31.8 g/dL 32.0-36.5 Below low lin l Mean Corpuscular HGB Conc JOHANA ([facility]) red cell distribution width 15.1 % 11.5-14.5 Above high no rmal Red Cell Distribution Width JOHANA ([facility]) platelet count, automated 409 10 150-450 Platelet C ount, Automated JOHNAA ([facility]) nucleated red blood cell % 0.0 % 0-0 Nucleated Red Blood Cell % JOHANA ([facility]) ID Date Data Source [id number] 04/24/2021 05:47:00 AM EDT JOHANA ([facility]) Name Value Range Interpretation Code Description Data Larissa rce(s) Supporting Document(s) magnesium level 2.5 mg/dL 1.8-2.4 Above high normal Magnesium Lev el JOHANA ([facility]) ID Date Data Source [id number] 04/24/2021 05:47:00 AM EDT [facility]) Name Value Range Interpretation Code Description Data Larissa rce(s) Supporting Document(s) glucose, fasting 111 mg/dL 70-100 Above high normal Glucose, Fas ting JOHANA ([facility]) blood urea nitrogen 32 mg/dL 7-18 Above high normal Blood Ure a Nitrogen JOHANA ([facility]) creatinine for GFR 1.07 mg/dL 0.55-1.30 Creatinine for GF R JOHANA ([facility]) glomerular filtration rate > 60.0 >58 Glomerula r Filtration Rate JOHANA ([facility]) sodium level 136 mEq/L 136-145 Sodium Level JOHANA (No [facility]) potassium serum 3.6 mEq/L 3.5-5.1 Potassium Serum ATHE ([facility]) carbon dioxide level 30 mEq/L 21-32 Carbon Dioxide Level JOHANA ([facility]) chloride level 96 mEq/L 98-107 Below low normal Chloride Level JOHANA ([facility]) anion gap 10 mEq/L 8-16 Anion Gap JOHANA ([facility]) calcium level 9.5 mg/dL 8.5-10.1 Calcium Level [place] ( [facility]) ID Date Data Source [id number] 04/24/2021 05:47:00 AM EDT [place] ([facility]) Name Value Range Interpretation Code Description Data Larissa rce(s) Supporting Document(s) white blood count 13.8 10 4.0-10.0 Above high normal White Blood Count JOHANA ([facility]) red blood count 4.57 10 4.00-5.40 Red Blood Count ATHE ([facility]) hemoglobin 13.1 g/dL 12.0-15.5 Hemoglobin [place] ([facility]) hematocrit 41.2 % 36.0-47.0 Hematocrit JOHANA ([facility]) mean corpuscular volume 90.2 fL 80.0-96.0 Mean Corpusc ular Volume JOHANA ([facility]) mean corpuscular hemoglobin 28.7 pg 27.0-33.0 Mean Cor puscular Hemoglobin JOHANA ([facility]) mean corpuscular HGB conc 31.8 g/dL 32.0-36.5 Below low lin l Mean Corpuscular HGB Conc JOHANA ([facility]) red cell distribution width 15.1 % 11.5-14.5 Above high no rmal Red Cell Distribution Width JOHANA ([facility]) platelet count, automated 409 10 150-450 Platelet C ount, Automated JOHANA ([facility]) nucleated red blood cell % 0.0 % 0-0 Nucleated Red Blood Cell % [place] ([facility]) ID Date Data Source [id number] 04/23/2021 03:26:00 PM EDT [place] ([facility]) Name Value Range Interpretation Code Description Data Larissa rce(s) Supporting Document(s) magnesium level 2.2 mg/dL 1.8-2.4 Magnesium Level ATHE NA ([facility]) ID Date Data Source [id number] 04/23/2021 03:26:00 PM EDT [place] ([facility]) Name Value Range Interpretation Code Description Data Larissa rce(s) Supporting Document(s) glucose, fasting 233 mg/dL 70-100 Above high normal Glucose, Fas ting JOHANA ([facility]) blood urea nitrogen 32 mg/dL 7-18 Above high normal Blood Ure a Nitrogen JOHANA ([facility]) creatinine for GFR 1.34 mg/dL 0.55-1.30 Above high normal Creatinine for GFR JOHANA ([facility]) glomerular filtration rate >58 Below low normal Nay merular Filtration Rate JOHANA ([facility]) sodium level 137 mEq/L 136-145 Sodium Level JOHANA (No [facility]) potassium serum 3.5 mEq/L 3.5-5.1 Potassium Serum ATHE NA ([facility]) chloride level 97 mEq/L 98-107 Below low normal Chloride Level JOHANA ([facility]) carbon dioxide level 29 mEq/L 21-32 Carbon Dioxide Level JOHANA ([facility]) anion gap 11 mEq/L 8-16 Anion Gap JOHANA ([facility]) calcium level 8.6 mg/dL 8.5-10.1 Calcium Level JOHANA ( [facility]) ID Date Data Source [id number] 04/23/2021 03:26:00 PM EDT [place] ([facility]) Name Value Range Interpretation Code Description Data Larissa rce(s) Supporting Document(s) ionized calcium 4.2 mg/dL 4.5-5.3 Below low normal [facility] Date Data Source [id number] 04/23/2021 03:26:00 PM EDT [facility]) Name Value Range Interpretation Code Description Data Larissa rce(s) Supporting Document(s) magnesium level 2.2 mg/dL 1.8-2.4 Magnesium Level ATHE ([facility]) ID Date Data Source [id number] 04/23/2021 03:26:00 PM EDT [facility]) Name Value Range Interpretation Code Description Data Larissa rce(s) Supporting Document(s) glucose, fasting 233 mg/dL 70-100 Above high normal Glucose, Fas ting JOHANA ([facility]) blood urea nitrogen 32 mg/dL 7-18 Above high normal Blood Ure a Nitrogen JOHANA ([facility]) creatinine for GFR 1.34 mg/dL 0.55-1.30 Above high normal Creatinine for GFR JOHANA ([facility]) glomerular filtration rate >58 Below low normal Nay merular Filtration Rate JOHANA ([facility]) sodium level 137 mEq/L 136-145 Sodium Level JOHANA ([facility]) potassium serum 3.5 mEq/L 3.5-5.1 Potassium Serum ATHE NA ([facility]) chloride level 97 mEq/L 98-107 Below low normal Chloride Level JOHANA ([facility]) carbon dioxide level 29 mEq/L 21-32 Carbon Dioxide Level JOHANA ([facility]) anion gap 11 mEq/L 8-16 Anion Gap JOHANA ([facility]) calcium level 8.6 mg/dL 8.5-10.1 Calcium Level JOHANA ( [facility]) ID Date Data Source [id number] 04/23/2021 03:26:00 PM EDT [place] ([facility]) Name Value Range Interpretation Code Description Data Larissa rce(s) Supporting Document(s) ionized calcium 4.2 mg/dL 4.5-5.3 Below low normal Ionized Calciu m JOHANA ([facility]) ID Date Data Source [id number] 04/23/2021 03:26:00 PM EDT [facility]) Name Value Range Interpretation Code Description Data Larissa rce(s) Supporting Document(s) magnesium level 2.2 mg/dL 1.8-2.4 Magnesium Level ATHE ([facility]) ID Date Data Source [id number] 04/23/2021 03:26:00 PM EDT [facility]) Name Value Range Interpretation Code Description Data Larissa rce(s) Supporting Document(s) glucose, fasting 233 mg/dL 70-100 Above high normal Glucose, Fas ting JOHANA ([facility]) blood urea nitrogen 32 mg/dL 7-18 Above high normal Blood Ure a Nitrogen JOHANA ([facility]) creatinine for GFR 1.34 mg/dL 0.55-1.30 Above high normal Creatinine for GFR JOHANA ([facility]) glomerular filtration rate >58 Below low normal Nay merular Filtration Rate JOHANA ([facility]) sodium level 137 mEq/L 136-145 Sodium Level JOHANA ([facility]) potassium serum 3.5 mEq/L 3.5-5.1 Potassium Serum ATHE NA ([facility]) chloride level 97 mEq/L 98-107 Below low normal Chloride Level JOHANA ([facility]) carbon dioxide level 29 mEq/L 21-32 Carbon Dioxide Level JOHANA ([facility]) anion gap 11 mEq/L 8-16 Anion Gap JOHANA ([facility]) calcium level 8.6 mg/dL 8.5-10.1 Calcium Level JOHANA ( [facility]) ID Date Data Source [id number] 04/23/2021 03:26:00 PM EDT JOHANA ([facility]) Name Value Range Interpretation Code Description Data Larissa rce(s) Supporting Document(s) ionized calcium 4.2 mg/dL 4.5-5.3 Below low normal Ionized Calciu m JOHANA ([facility]) ID Date Data Source [id number] 04/23/2021 03:26:00 PM [facility] Name Value Range Interpretation Code Description Data Larissa rce(s) Supporting Document(s) magnesium level 2.2 mg/dL 1.8-2.4 [facility]) ID Date Data Source [id number] 04/23/2021 03:26:00 PM EDT [facility]) Name Value Range Interpretation Code Description Data Larissa rce(s) Supporting Document(s) glucose, fasting 233 mg/dL 70-100 Above high normal Glucose, Fas ting JOHANA ([facility]) blood urea nitrogen 32 mg/dL 7-18 Above high normal Blood Ure a Nitrogen JOHANA ([facility]) creatinine for GFR 1.34 mg/dL 0.55-1.30 Above high normal Creatinine for GFR JOHANA ([facility]) glomerular filtration rate >58 Below low normal Nay merular Filtration Rate JOHANA ([facility]) sodium level 137 mEq/L 136-145 Sodium Level JOHANA ([facility]) potassium serum 3.5 mEq/L 3.5-5.1 Potassium Serum ATHE NA ([facility]) chloride level 97 mEq/L 98-107 Below low normal Chloride Level JOHANA ([facility]) carbon dioxide level 29 mEq/L 21-32 Carbon Dioxide Level JOHANA ([facility]) anion gap 11 mEq/L 8-16 Anion Gap JOHANA ([facility]) calcium level 8.6 mg/dL 8.5-10.1 Calcium Level JOHANA ( [facility]) ID Date Data Source [id number] 04/23/2021 03:26:00 PM EDT [place] ([facility]) Name Value Range Interpretation Code Description Data Larissa rce(s) Supporting Document(s) ionized calcium 4.2 mg/dL 4.5-5.3 Below low normal Ionized Calciu m JOHANA ([facility]) ID Date Data Source [id number] 04/23/2021 03:26:00 PM EDT JOHANA ([facility]) Name Value Range Interpretation Code Description Data Larissa rce(s) Supporting Document(s) magnesium level 2.2 mg/dL 1.8-2.4 [facility] ID Date Data Source [id number] 04/23/2021 03:26:00 PM EDT JOHANA ([facility]) Name Value Range Interpretation Code Description Data Larissa rce(s) Supporting Document(s) glucose, fasting 233 mg/dL 70-100 Above high normal Glucose, Fas ting JOHANA ([facility]) blood urea nitrogen 32 mg/dL 7-18 Above high normal Blood Ure a Nitrogen JOHANA ([facility]) creatinine for GFR 1.34 mg/dL 0.55-1.30 Above high normal Creatinine for GFR JOHANA ([facility]) glomerular filtration rate >58 Below low normal Nay merular Filtration Rate JOHANA ([facility]) sodium level 137 mEq/L 136-145 Sodium Level JOHANA ([facility]) potassium serum 3.5 mEq/L 3.5-5.1 Potassium Serum ATHE NA ([facility]) chloride level 97 mEq/L 98-107 Below low normal Chloride Level JOHANA ([facility]) carbon dioxide level 29 mEq/L 21-32 Carbon Dioxide Level JOHANA ([facility]) anion gap 11 mEq/L 8-16 Anion Gap JOHANA ([facility]) calcium level 8.6 mg/dL 8.5-10.1 Calcium Level JOHANA ( [facility]) ID Date Data Source [id number] 04/23/2021 03:26:00 PM EDT [facility]) Name Value Range Interpretation Code Description Data Larissa rce(s) Supporting Document(s) ionized calcium 4.2 mg/dL 4.5-5.3 Below low normal Ionized Calciu m [place] ([facility]) ID Date Data Source [id number] 04/23/2021 05:17:00 AM EDT [facility]) Name Value Range Interpretation Code Description Data Larissa rce(s) Supporting Document(s) magnesium level 2.1 mg/dL 1.8-2.4 [facility] ID Date Data Source [id number] 04/23/2021 05:17:00 AM EDT [facility]) Name Value Range Interpretation Code Description Data Larissa rce(s) Supporting Document(s) glucose, fasting 137 mg/dL 70-100 Above high normal Glucose, Fas ting [place] ([facility]) creatinine for GFR 1.14 mg/dL 0.55-1.30 Creatinine for GF R [place] ([facility]) blood urea nitrogen 28 mg/dL 7-18 Above high normal Blood Ure a Nitrogen JOHANA ([facility]) glomerular filtration rate >58 Below low normal Nay merular Filtration Rate JOHANA ([facility]) sodium level 139 mEq/L 136-145 Sodium Level JOHANA (No [facility]) potassium serum 3.3 mEq/L 3.5-5.1 Below low normal Potassium Seru m JOHANA ([facility]) chloride level 102 mEq/L 98-107 Chloride Level JOHANA ([facility]) anion gap 7 mEq/L 8-16 Below low normal Anion Gap JOHANA ( [facility]) carbon dioxide level 30 mEq/L 21-32 Carbon Dioxide Level JOHANA ([facility]) calcium level 8.5 mg/dL 8.5-10.1 Calcium Level JOHANA ( [facility]) ID Date Data Source [id number] 04/23/2021 05:17:00 AM EDT [facility]) Name Value Range Interpretation Code Description Data Larissa rce(s) Supporting Document(s) magnesium level 2.1 mg/dL 1.8-2.4 Magnesium [facility]) ID Date Data Source [id number] 04/23/2021 05:17:00 AM EDT [facility]) Name Value Range Interpretation Code Description Data Larissa rce(s) Supporting Document(s) glucose, fasting 137 mg/dL 70-100 Above high normal Glucose, Fas ting JOHANA ([facility]) creatinine for GFR 1.14 mg/dL 0.55-1.30 Creatinine for GF R [place] ([facility]) blood urea nitrogen 28 mg/dL 7-18 Above high normal Blood Ure a Nitrogen JOHANA ([facility]) glomerular filtration rate >58 Below low normal Nay merular Filtration Rate JOHANA ([facility]) sodium level 139 mEq/L 136-145 Sodium Level JOHANA (No [facility]) potassium serum 3.3 mEq/L 3.5-5.1 Below low normal Potassium Seru m JOHANA ([facility]) carbon dioxide level 30 mEq/L 21-32 Carbon Dioxide Level JOHANA ([facility]) chloride level 102 mEq/L 98-107 Chloride Level JOHANA ([facility]) anion gap 7 mEq/L 8-16 Below low normal Anion Gap JOHANA ( [facility]) calcium level 8.5 mg/dL 8.5-10.1 Calcium Level JOHANA ( [facility]) ID Date Data Source [id number] 04/23/2021 05:17:00 AM EDT JOHANA ([facility]) Name Value Range Interpretation Code Description Data Larissa rce(s) Supporting Document(s) magnesium level 2.1 mg/dL 1.8-2.4 Magnesium Level ATHE NA ([facility]) ID Date Data Source [id number] 04/23/2021 05:17:00 AM EDT JOHANA ([facility]) Name Value Range Interpretation Code Description Data Larissa rce(s) Supporting Document(s) glucose, fasting 137 mg/dL 70-100 Above high normal Glucose, Fas ting JOHANA ([facility]) blood urea nitrogen 28 mg/dL 7-18 Above high normal Blood Ure a Nitrogen JOHANA ([facility]) creatinine for GFR 1.14 mg/dL 0.55-1.30 Creatinine for GF R JOHANA ([facility]) glomerular filtration rate >58 Below low normal Nay merular Filtration Rate JOHANA ([facility]) sodium level 139 mEq/L 136-145 Sodium Level JOHANA (No [facility]) potassium serum 3.3 mEq/L 3.5-5.1 Below low normal Potassium Seru m JOHANA ([facility]) chloride level 102 mEq/L 98-107 Chloride Level JOHANA ([facility]) carbon dioxide level 30 mEq/L 21-32 Carbon Dioxide Level JOHANA ([facility]) anion gap 7 mEq/L 8-16 Below low normal Anion Gap JOHANA ( [facility]) calcium level 8.5 mg/dL 8.5-10.1 Calcium Level JOHANA ( [facility]) ID Date Data Source [id number] 04/23/2021 05:17:00 AM EDT JOHANA ([facility]) Name Value Range Interpretation Code Description Data Larissa rce(s) Supporting Document(s) magnesium level 2.1 mg/dL 1.8-2.4 Magnesium Level ATHE NA ([facility]) ID Date Data Source [id number] 04/23/2021 05:17:00 AM EDT JOHANA ([facility]) Name Value Range Interpretation Code Description Data Larissa rce(s) Supporting Document(s) glucose, fasting 137 mg/dL 70-100 Above high normal Glucose, Fas ting JOHANA ([facility]) blood urea nitrogen 28 mg/dL 7-18 Above high normal Blood Ure a Nitrogen [place] ([facility]) creatinine for GFR 1.14 mg/dL 0.55-1.30 Creatinine for GF R JOHANA ([facility]) glomerular filtration rate >58 Below low normal Nay merular Filtration Rate JOHANA ([facility]) sodium level 139 mEq/L 136-145 Sodium Level JOHANA (No [facility]) potassium serum 3.3 mEq/L 3.5-5.1 Below low normal Potassium Seru m [place] ([facility]) chloride level 102 mEq/L 98-107 Chloride Level [place] ([facility]) carbon dioxide level 30 mEq/L 21-32 Carbon Dioxide Level [place] ([facility]) anion gap 7 mEq/L 8-16 Below low normal Anion Gap JOHANA ( [facility]) calcium level 8.5 mg/dL 8.5-10.1 Calcium Level JOHANA ( [facility]) ID Date Data Source [id number] 04/23/2021 05:17:00 AM EDT JOHANA ([facility]) Name Value Range Interpretation Code Description Data Larissa rce(s) Supporting Document(s) magnesium level 2.1 mg/dL 1.8-2.4 Magnesium Level ATHE NA ([facility]) ID Date Data Source [id number] 04/23/2021 05:17:00 AM EDT JOHANA ([facility]) Name Value Range Interpretation Code Description Data Larissa rce(s) Supporting Document(s) glucose, fasting 137 mg/dL 70-100 Above high normal Glucose, Fas ting [place] ([facility]) blood urea nitrogen 28 mg/dL 7-18 Above high normal Blood Ure a Nitrogen JOHANA ([facility]) creatinine for GFR 1.14 mg/dL 0.55-1.30 Creatinine for GF R JOHANA ([facility]) glomerular filtration rate >58 Below low normal Nay merular Filtration Rate JOHANA ([facility]) sodium level 139 mEq/L 136-145 Sodium Level JOHANA ([facility]) potassium serum 3.3 mEq/L 3.5-5.1 Below low normal Potassium Seru m [place] ([facility]) chloride level 102 mEq/L 98-107 Chloride Level [place] ([facility]) carbon dioxide level 30 mEq/L 21-32 Carbon Dioxide Level [place] ([facility]) anion gap 7 mEq/L 8-16 Below low normal Anion Gap [place] ( [facility]) calcium level 8.5 mg/dL 8.5-10.1 Calcium Level [place] ( [facility]) ID Date Data Source [id number] 04/22/2021 06:50:00 PM EDT [place] ([facility]) Name Value Range Interpretation Code Description Data Larissa rce(s) Supporting Document(s) magnesium level 2.0 mg/dL 1.8-2.4 Magnesium Level ATHE NA ([facility]) ID Date Data Source [id number] 04/22/2021 06:50:00 PM EDT [place] ([facility]) Name Value Range Interpretation Code Description Data Larissa rce(s) Supporting Document(s) glucose, fasting 172 mg/dL 70-100 Above high normal Glucose, Fas ting [place] ([facility]) blood urea nitrogen 21 mg/dL 7-18 Above high normal Blood Ure a Nitrogen [place] ([facility]) creatinine for GFR 1.22 mg/dL 0.55-1.30 Creatinine for GF R JOHANA ([facility]) glomerular filtration rate >58 Below low normal Nay merular Filtration Rate JOHANA ([facility]) sodium level 140 mEq/L 136-145 Sodium Level JOHANA ([facility]) potassium serum 3.0 mEq/L 3.5-5.1 Below low normal Potassium Seru m JOHANA ([facility]) carbon dioxide level 29 mEq/L 21-32 Carbon Dioxide Level JOHANA ([facility]) chloride level 101 mEq/L 98-107 Chloride Level JOHANA ([facility]) calcium level 8.9 mg/dL 8.5-10.1 Calcium Level [place] ( [facility]) anion gap 10 mEq/L 8-16 Anion Gap JOHANA ([facility]) ID Date Data Source [id number] 04/22/2021 06:50:00 PM EDT [place] ([facility]) Name Value Range Interpretation Code Description Data Larissa rce(s) Supporting Document(s) magnesium level 2.0 mg/dL 1.8-2.4 Magnesium Level [facility]) ID Date Data Source [id number] 04/22/2021 06:50:00 PM EDT [facility]) Name Value Range Interpretation Code Description Data Larissa rce(s) Supporting Document(s) glucose, fasting 172 mg/dL 70-100 Above high normal Glucose, Fas ting JOHANA ([facility]) blood urea nitrogen 21 mg/dL 7-18 Above high normal Blood Ure a Nitrogen JOHANA ([facility]) glomerular filtration rate >58 Below low normal Nay merular Filtration Rate JOHANA ([facility]) creatinine for GFR 1.22 mg/dL 0.55-1.30 Creatinine for GF R JOHANA ([facility]) sodium level 140 mEq/L 136-145 Sodium Level JOHANA ([facility]) potassium serum 3.0 mEq/L 3.5-5.1 Below low normal Potassium Seru m JOHANA ([facility]) chloride level 101 mEq/L 98-107 Chloride Level JOHANA ([facility]) carbon dioxide level 29 mEq/L 21-32 Carbon Dioxide Level JOHANA ([facility]) calcium level 8.9 mg/dL 8.5-10.1 Calcium Level JOHANA ( [facility]) anion gap 10 mEq/L 8-16 Anion Gap JOHANA ([facility]) ID Date Data Source [id number] 04/22/2021 06:50:00 PM EDT JOHANA ([facility]) Name Value Range Interpretation Code Description Data Larissa rce(s) Supporting Document(s) magnesium level 2.0 mg/dL 1.8-2.4 [facility] Date Data Source [id number] 04/22/2021 06:50:00 PM EDT JOHANA ([facility]) Name Value Range Interpretation Code Description Data Larissa rce(s) Supporting Document(s) glucose, fasting 172 mg/dL 70-100 Above high normal Glucose, Fas ting JOHANA ([facility]) blood urea nitrogen 21 mg/dL 7-18 Above high normal Blood Ure a Nitrogen JOHANA ([facility]) creatinine for GFR 1.22 mg/dL 0.55-1.30 Creatinine for GF R JOHANA ([facility]) glomerular filtration rate >58 Below low normal Nay merular Filtration Rate JOHANA ([facility]) sodium level 140 mEq/L 136-145 Sodium Level JOHANA ([facility]) potassium serum 3.0 mEq/L 3.5-5.1 Below low normal Potassium Seru m JOHANA ([facility]) carbon dioxide level 29 mEq/L 21-32 Carbon Dioxide Level JOHANA ([facility]) chloride level 101 mEq/L 98-107 Chloride Level JOHANA ([facility]) calcium level 8.9 mg/dL 8.5-10.1 Calcium Level JOHANA ( [facility]) anion gap 10 mEq/L 8-16 Anion Gap JOHANA ([facility]) ID Date Data Source [id number] 04/22/2021 06:50:00 PM EDT JOHANA ([facility]) Name Value Range Interpretation Code Description Data Larissa rce(s) Supporting Document(s) magnesium level 2.0 mg/dL 1.8-2.4 Magnesium Level ATHE NA ([facility]) ID Date Data Source [id number] 04/22/2021 06:50:00 PM EDT JOHANA ([facility]) Name Value Range Interpretation Code Description Data Larissa rce(s) Supporting Document(s) blood urea nitrogen 21 mg/dL 7-18 Above high normal Blood Ure a Nitrogen JOHANA ([facility]) glucose, fasting 172 mg/dL 70-100 Above high normal Glucose, Fas ting [place] ([facility]) creatinine for GFR 1.22 mg/dL 0.55-1.30 Creatinine for GF R JOHANA ([facility]) glomerular filtration rate >58 Below low normal Nay merular Filtration Rate JOHANA ([facility]) sodium level 140 mEq/L 136-145 Sodium Level JOHANA ([facility]) potassium serum 3.0 mEq/L 3.5-5.1 Below low normal Potassium Seru m [place] ([facility]) chloride level 101 mEq/L 98-107 Chloride Level [place] ([facility]) carbon dioxide level 29 mEq/L 21-32 Carbon Dioxide Level JOHANA ([facility]) anion gap 10 mEq/L 8-16 Anion Gap JOHANA ([facility]) calcium level 8.9 mg/dL 8.5-10.1 Calcium Level JOHANA ( [facility]) ID Date Data Source [id number] 04/22/2021 06:50:00 PM EDT JOHANA ([facility]) Name Value Range Interpretation Code Description Data Larissa rce(s) Supporting Document(s) magnesium level 2.0 mg/dL 1.8-2.4 Magnesium Level ATHE NA ([facility]) ID Date Data Source [id number] 04/22/2021 06:50:00 PM EDT [place] ([facility]) Name Value Range Interpretation Code Description Data Larissa rce(s) Supporting Document(s) glucose, fasting 172 mg/dL 70-100 Above high normal Glucose, Fas ting [place] ([facility]) creatinine for GFR 1.22 mg/dL 0.55-1.30 Creatinine for GF R JOHANA ([facility]) blood urea nitrogen 21 mg/dL 7-18 Above high normal Blood Ure a Nitrogen JOHANA ([facility]) glomerular filtration rate >58 Below low normal Nay merular Filtration Rate [place] ([facility]) sodium level 140 mEq/L 136-145 Sodium Level JOHANA ([facility]) potassium serum 3.0 mEq/L 3.5-5.1 Below low normal Potassium Seru m [place] ([facility]) chloride level 101 mEq/L 98-107 Chloride Level [place] ([facility]) carbon dioxide level 29 mEq/L 21-32 Carbon Dioxide Level [place] ([facility]) anion gap 10 mEq/L 8-16 Anion Gap JOHANA ([facility]) calcium level 8.9 mg/dL 8.5-10.1 Calcium Level [place] ( [facility]) ID Date Data Source [id number] 04/22/2021 10:13:00 AM EDT [place] ([facility]) Name Value Range Interpretation Code Description Data Larissa rce(s) Supporting Document(s) magnesium level 2.0 mg/dL 1.8-2.4 Magnesium Level ATHE NA ([facility]) ID Date Data Source [id number] 04/22/2021 10:13:00 AM EDT [place] ([facility]) Name Value Range Interpretation Code Description Data Larissa rce(s) Supporting Document(s) glucose, fasting 263 mg/dL 70-100 Above high normal Glucose, Fas ting [place] ([facility]) creatinine for GFR 1.13 mg/dL 0.55-1.30 Creatinine for GF R JOHANA ([facility]) blood urea nitrogen 20 mg/dL 7-18 Above high normal Blood Ure a Nitrogen JOHANA ([facility]) glomerular filtration rate >58 Below low normal Nay merular Filtration Rate JOHANA ([facility]) sodium level 138 mEq/L 136-145 Sodium Level JOHANA ([facility]) potassium serum 3.2 mEq/L 3.5-5.1 Below low normal Potassium Seru m [place] ([facility]) chloride level 102 mEq/L 98-107 Chloride Level [place] ([facility]) carbon dioxide level 26 mEq/L 21-32 Carbon Dioxide Level [place] ([facility]) anion gap 10 mEq/L 8-16 Anion Gap [place] ([facility]) calcium level 9.0 mg/dL 8.5-10.1 Calcium Level [place] ( [facility]) ID Date Data Source [id number] 04/22/2021 10:13:00 AM EDT [facility]) Name Value Range Interpretation Code Description Data Larissa rce(s) Supporting Document(s) ionized calcium 4.4 mg/dL 4.5-5.3 Below low normal Ionized Calciu m [place] ([facility]) ID Date Data Source [id number] 04/22/2021 10:13:00 AM EDT [facility]) Name Value Range Interpretation Code Description Data Larissa rce(s) Supporting Document(s) magnesium level 2.0 mg/dL 1.8-2.4 [facility] ID Date Data Source [id number] 04/22/2021 10:13:00 AM EDT [facility]) Name Value Range Interpretation Code Description Data Larissa rce(s) Supporting Document(s) glucose, fasting 263 mg/dL 70-100 Above high normal Glucose, Fas ting [place] ([facility]) blood urea nitrogen 20 mg/dL 7-18 Above high normal Blood Ure a Nitrogen JOHANA ([facility]) glomerular filtration rate >58 Below low normal Nay merular Filtration Rate JOHANA ([facility]) creatinine for GFR 1.13 mg/dL 0.55-1.30 Creatinine for GF R JOHANA ([facility]) sodium level 138 mEq/L 136-145 Sodium Level JOHANA ([facility]) potassium serum 3.2 mEq/L 3.5-5.1 Below low normal Potassium Seru m [place] ([facility]) chloride level 102 mEq/L 98-107 Chloride Level [place] ([facility]) carbon dioxide level 26 mEq/L 21-32 Carbon Dioxide Level [place] ([facility]) calcium level 9.0 mg/dL 8.5-10.1 Calcium Level [place] ( [facility]) anion gap 10 mEq/L 8-16 Anion Gap [place] ([facility]) ID Date Data Source [id number] 04/22/2021 10:13:00 AM EDT [place] ([facility]) Name Value Range Interpretation Code Description Data Larissa rce(s) Supporting Document(s) ionized calcium 4.4 mg/dL 4.5-5.3 Below low normal Ionized Calciu m [place] ([facility]) ID Date Data Source [id number] 04/22/2021 10:13:00 AM EDT [facility]) Name Value Range Interpretation Code Description Data Larissa rce(s) Supporting Document(s) magnesium level 2.0 mg/dL 1.8-2.4 Magnesium Level ATHE NA ([facility]) ID Date Data Source [id number] 04/22/2021 10:13:00 AM EDT [facility]) Name Value Range Interpretation Code Description Data Larissa rce(s) Supporting Document(s) glucose, fasting 263 mg/dL 70-100 Above high normal Glucose, Fas ting JOHANA ([facility]) blood urea nitrogen 20 mg/dL 7-18 Above high normal Blood Ure a Nitrogen [place] ([facility]) creatinine for GFR 1.13 mg/dL 0.55-1.30 Creatinine for GF R JOHANA ([facility]) glomerular filtration rate >58 Below low normal Nay merular Filtration Rate JOHANA ([facility]) potassium serum 3.2 mEq/L 3.5-5.1 Below low normal Potassium Seru m [place] ([facility]) sodium level 138 mEq/L 136-145 Sodium Level JOHANA ([facility]) chloride level 102 mEq/L 98-107 Chloride Level [place] ([facility]) anion gap 10 mEq/L 8-16 Anion Gap JOHANA ([facility]) carbon dioxide level 26 mEq/L 21-32 Carbon Dioxide Level [place] ([facility]) calcium level 9.0 mg/dL 8.5-10.1 Calcium Level [place] ( [facility]) ID Date Data Source [id number] 04/22/2021 10:13:00 AM EDT [facility]) Name Value Range Interpretation Code Description Data Larissa rce(s) Supporting Document(s) ionized calcium 4.4 mg/dL 4.5-5.3 Below low normal Ionized Calciu m [place] ([facility]) ID Date Data Source [id number] 04/22/2021 10:13:00 AM EDT [facility]) Name Value Range Interpretation Code Description Data Larissa rce(s) Supporting Document(s) magnesium level 2.0 mg/dL 1.8-2.4 [facility] ID Date Data Source [id number] 04/22/2021 10:13:00 AM EDT [facility]) Name Value Range Interpretation Code Description Data Larissa rce(s) Supporting Document(s) glucose, fasting 263 mg/dL 70-100 Above high normal Glucose, Fas ting JOHANA ([facility]) blood urea nitrogen 20 mg/dL 7-18 Above high normal Blood Ure a Nitrogen J[facility] ([facility]) creatinine for GFR 1.13 mg/dL 0.55-1.30 Creatinine for GF R JOHANA ([facility]) sodium level 138 mEq/L 136-145 Sodium Level JOH[facility] ([facility]) glomerular filtration rate >58 Below low normal Nay merular Filtration Rate [place] ([facility]) potassium serum 3.2 mEq/L 3.5-5.1 Below low normal Potassium Seru m [place] ([facility]) chloride level 102 mEq/L 98-107 Chloride Level [place] ([facility]) carbon dioxide level 26 mEq/L 21-32 Carbon Dioxide Level [place] ([facility]) calcium level 9.0 mg/dL 8.5-10.1 Calcium Level [place] ( [facility]) anion gap 10 mEq/L 8-16 Anion Gap [place] ([facility]) ID Date Data Source [id number] 04/22/2021 10:13:00 AM EDT [facility]) Name Value Range Interpretation Code Description Data Larissa rce(s) Supporting Document(s) ionized calcium 4.4 mg/dL 4.5-5.3 Below low normal Ionized Calciu m [facility]) ID Date Data Source [id number] 04/22/2021 10:13:00 AM EDT [facility]) Name Value Range Interpretation Code Description Data Larissa rce(s) Supporting Document(s) magnesium level 2.0 mg/dL 1.8-2.4 [facility] ID Date Data Source [id number] 04/22/2021 10:13:00 AM EDT [facility]) Name Value Range Interpretation Code Description Data Larissa rce(s) Supporting Document(s) glucose, fasting 263 mg/dL 70-100 Above high normal Glucose, Fas ting [place] ([facility]) blood urea nitrogen 20 mg/dL 7-18 Above high normal Blood Ure a Nitrogen [place] ([facility]) creatinine for GFR 1.13 mg/dL 0.55-1.30 Creatinine for GF R JOHANA ([facility]) glomerular filtration rate >58 Below low normal Nay merular Filtration Rate JOHANA ([facility]) sodium level 138 mEq/L 136-145 Sodium Level JOHANA (No [facility]) chloride level 102 mEq/L 98-107 Chloride Level [place] ([facility]) potassium serum 3.2 mEq/L 3.5-5.1 Below low normal Potassium Seru m [place] ([facility]) carbon dioxide level 26 mEq/L 21-32 Carbon Dioxide Level [place] ([facility]) calcium level 9.0 mg/dL 8.5-10.1 Calcium Level [place] ( [facility]) anion gap 10 mEq/L 8-16 Anion Gap [place] ([facility]) ID Date Data Source [id number] 04/22/2021 10:13:00 AM EDT [facility]) Name Value Range Interpretation Code Description Data Larissa rce(s) Supporting Document(s) ionized calcium 4.4 mg/dL 4.5-5.3 Below low normal Ionized Calciu m [facility]) ID Date Data Source [id number] 04/22/2021 05:28:00 AM EDT [facility]) Name Value Range Interpretation Code Description Data Larissa rce(s) Supporting Document(s) nt-pro BNP 5559 pg/mL <125 Above high normal Nt-pro BNP [facility]) ID Date Data Source [id number] 04/22/2021 05:28:00 AM EDT [facility]) Name Value Range Interpretation Code Description Data Larissa rce(s) Supporting Document(s) magnesium level 2.0 mg/dL 1.8-2.4 Magnesium Level ATHE NA ([facility]) ID Date Data Source [id number] 04/22/2021 05:28:00 AM EDT [place] ([facility]) Name Value Range Interpretation Code Description Data Larissa rce(s) Supporting Document(s) glucose, fasting 155 mg/dL 70-100 Above high normal Glucose, Fas ting JOHANA ([facility]) creatinine for GFR 0.99 mg/dL 0.55-1.30 Creatinine for GF R [place] ([facility]) blood urea nitrogen 15 mg/dL 7-18 Blood Urea Nitro gen [place] ([facility]) glomerular filtration rate > 60.0 >58 Glomerula r Filtration Rate [facility] ([facility]) sodium level 140 mEq/L 136-145 Sodium Level JOHANA (No [facility]) potassium serum 3.4 mEq/L 3.5-5.1 Below low normal Potassium Seru m [place] ([facility]) chloride level 104 mEq/L 98-107 Chloride Level [place] ([facility]) carbon dioxide level 26 mEq/L 21-32 Carbon Dioxide Level [place] ([facility]) calcium level 8.7 mg/dL 8.5-10.1 Calcium Level [place] ( [facility]) anion gap 10 mEq/L 8-16 Anion Gap [place] ([facility]) ID Date Data Source [id number] 04/22/2021 05:28:00 AM EDT [place] ([facility]) Name Value Range Interpretation Code Description Data Larissa rce(s) Supporting Document(s) ionized calcium 4.1 mg/dL 4.5-5.3 Below low normal Ionized Calciu m [facility]) ID Date Data Source [id number] 04/22/2021 05:28:00 AM EDT [facility]) Name Value Range Interpretation Code Description Data Larissa rce(s) Supporting Document(s) nt-pro BNP 5559 pg/mL <125 Above high normal Nt-pro BNP JOHANA ([facility]) ID Date Data Source [id number] 04/22/2021 05:28:00 AM EDT JOHANA ([facility]) Name Value Range Interpretation Code Description Data Larissa rce(s) Supporting Document(s) magnesium level 2.0 mg/dL 1.8-2.4 Magnesium Level ATHE NA ([facility]) ID Date Data Source [id number] 04/22/2021 05:28:00 AM EDT JOHANA ([facility]) Name Value Range Interpretation Code Description Data Larissa rce(s) Supporting Document(s) glucose, fasting 155 mg/dL 70-100 Above high normal Glucose, Fas ting JOHANA ([facility]) creatinine for GFR 0.99 mg/dL 0.55-1.30 Creatinine for GF R [place] ([facility]) blood urea nitrogen 15 mg/dL 7-18 Blood Urea Nitro gen JOHANA ([facility]) glomerular filtration rate > 60.0 >58 Glomerula r Filtration Rate JOHANA ([facility]) sodium level 140 mEq/L 136-145 Sodium Level JOHANA ([facility]) potassium serum 3.4 mEq/L 3.5-5.1 Below low normal Potassium Seru m JOHANA ([facility]) chloride level 104 mEq/L 98-107 Chloride Level JOHANA ([facility]) carbon dioxide level 26 mEq/L 21-32 Carbon Dioxide Level JOHANA ([facility]) anion gap 10 mEq/L 8-16 Anion Gap JOHANA ([facility]) calcium level 8.7 mg/dL 8.5-10.1 Calcium Level JOHANA ( [facility]) ID Date Data Source [id number] 04/22/2021 05:28:00 [facility] Name Value Range Interpretation Code Description Data Larissa rce(s) Supporting Document(s) ionized calcium 4.1 mg/dL 4.5-5.3 Below low normal Ionized Calciu m [place] ([facility]) ID Date Data Source [id number] 04/22/2021 05:28:00 AM EDT [place] ([facility]) Name Value Range Interpretation Code Description Data Larissa rce(s) Supporting Document(s) nt-pro BNP 5559 pg/mL <125 Above high normal Nt-pro BNP [place] ([facility]) ID Date Data Source [id number] 04/22/2021 05:28:00 AM EDT [place] ([facility]) Name Value Range Interpretation Code Description Data Larissa rce(s) Supporting Document(s) magnesium level 2.0 mg/dL 1.8-2.4 [facility] Data Source [id number] 04/22/2021 05:28:00 AM EDT [place] ([facility]) Name Value Range Interpretation Code Description Data Larissa rce(s) Supporting Document(s) glucose, fasting 155 mg/dL 70-100 Above high normal Glucose, Fas ting JOHANA ([facility]) blood urea nitrogen 15 mg/dL 7-18 Blood Urea Nitro gen [place] ([facility]) glomerular filtration rate > 60.0 >58 Glomerula r Filtration Rate [place] ([facility]) creatinine for GFR 0.99 mg/dL 0.55-1.30 Creatinine for GF R [place] ([facility]) sodium level 140 mEq/L 136-145 Sodium Level JOHANA (No [facility]) potassium serum 3.4 mEq/L 3.5-5.1 Below low normal Potassium Seru m [place] ([facility]) chloride level 104 mEq/L 98-107 Chloride Level [place] ([facility]) carbon dioxide level 26 mEq/L 21-32 Carbon Dioxide Level [place] ([facility]) anion gap 10 mEq/L 8-16 Anion Gap [place] ([facility]) calcium level 8.7 mg/dL 8.5-10.1 Calcium Level JOHANA ( [facility]) ID Date Data Source [id number] 04/22/2021 05:28:00 AM EDT [place] ([facility]) Name Value Range Interpretation Code Description Data Larissa rce(s) Supporting Document(s) ionized calcium 4.1 mg/dL 4.5-5.3 Below low normal Ionized Calciu m JOHANA ([facility]) ID Date Data Source [id number] 04/22/2021 05:28:00 AM EDT [facility]) Name Value Range Interpretation Code Description Data Larissa rce(s) Supporting Document(s) nt-pro BNP 5559 pg/mL <125 Above high normal Nt-pro BNP [place] ([facility]) ID Date Data Source [id number] 04/22/2021 05:28:00 AM EDT [place] ([facility]) Name Value Range Interpretation Code Description Data Larissa rce(s) Supporting Document(s) magnesium level 2.0 mg/dL 1.8-2.4 Magnesium Level ATHE ([facility]) ID Date Data Source [id number] 04/22/2021 05:28:00 AM EDT [facility]) Name Value Range Interpretation Code Description Data Larissa rce(s) Supporting Document(s) glucose, fasting 155 mg/dL 70-100 Above high normal Glucose, Fas ting JOHANA ([facility]) blood urea nitrogen 15 mg/dL 7-18 Blood Urea Nitro gen JOHANA ([facility]) creatinine for GFR 0.99 mg/dL 0.55-1.30 Creatinine for GF R [place] ([facility]) glomerular filtration rate > 60.0 >58 Glomerula r Filtration Rate [place] ([facility]) sodium level 140 mEq/L 136-145 Sodium Level JOHANA ([facility]) potassium serum 3.4 mEq/L 3.5-5.1 Below low normal Potassium Seru m JOHANA ([facility]) chloride level 104 mEq/L 98-107 Chloride Level [place] ([facility]) carbon dioxide level 26 mEq/L 21-32 Carbon Dioxide Level J[place] ([facility]) anion gap 10 mEq/L 8-16 Anion Gap JOH[place] ([facility]) calcium level 8.7 mg/dL 8.5-10.1 Calcium Level JOHANA ( [facility]) ID Date Data Source [id number] 04/22/2021 05:28:00 AM EDT [facility]) Name Value Range Interpretation Code Description Data Larissa rce(s) Supporting Document(s) ionized calcium 4.1 mg/dL 4.5-5.3 Below low normal Ionized Calciu m JOHANA ([facility]) ID Date Data Source [id number] 04/22/2021 05:28:00 AM EDT [facility]) Name Value Range Interpretation Code Description Data Larissa rce(s) Supporting Document(s) nt-pro BNP 5559 pg/mL <125 Above high normal Nt-pro BNP [facility]) ID Date Data Source [id number] 04/22/2021 05:28:00 [facility] Name Value Range Interpretation Code Description Data Larissa rce(s) Supporting Document(s) magnesium level 2.0 mg/dL 1.8-2.4 Magnesium Level ATHE [facility]) ID Date Data Source [id number] 04/22/2021 05:28:00 AM EDT [facility]) Name Value Range Interpretation Code Description Data Larissa rce(s) Supporting Document(s) glucose, fasting 155 mg/dL 70-100 Above high normal Glucose, Fas ting [place] ([facility]) blood urea nitrogen 15 mg/dL 7-18 Blood Urea Nitro gen [place] ([facility]) creatinine for GFR 0.99 mg/dL 0.55-1.30 Creatinine for GF R [place] ([facility]) glomerular filtration rate > 60.0 >58 Glomerula r Filtration Rate [place] ([facility]) potassium serum 3.4 mEq/L 3.5-5.1 Below low normal Potassium Seru m [place] ([facility]) sodium level 140 mEq/L 136-145 Sodium Level JOH[place] (No [facility]) chloride level 104 mEq/L 98-107 Chloride Level [place] ([facility]) carbon dioxide level 26 mEq/L 21-32 Carbon Dioxide Level [place] ([facility]) calcium level 8.7 mg/dL 8.5-10.1 Calcium Level [facility]) anion gap 10 mEq/L 8-16 Anion Gap [place] ([facility]) ID Date Data Source [id number] 04/22/2021 05:28:00 AM EDT [facility]) Name Value Range Interpretation Code Description Data Larissa rce(s) Supporting Document(s) ionized calcium 4.1 mg/dL 4.5-5.3 Below low normal Ionized Calciu m [place] ([facility]) ID Date Data Source [id number] 04/21/2021 06:10:00 PM EDT [facility]) Name Value Range Interpretation Code Description Data Larissa rce(s) Supporting Document(s) blood urea nitrogen 13 mg/dL 7-18 Blood Urea Nitro gen [place] ([facility]) glucose, fasting 124 mg/dL 70-100 Above high normal Glucose, Fas ting [place] ([facility]) glomerular filtration rate > 60.0 >58 Glomerula r Filtration Rate [place] ([facility]) creatinine for GFR 1.07 mg/dL 0.55-1.30 Creatinine for GF R [place] ([facility]) potassium serum 3.7 mEq/L 3.5-5.1 Potassium Serum ATHE NA ([facility]) sodium level 141 mEq/L 136-145 Sodium Level JOHANA ([facility]) carbon dioxide level 27 mEq/L 21-32 Carbon Dioxide Level JOHANA ([facility]) chloride level 105 mEq/L 98-107 Chloride Level J[place] ([facility]) anion gap 9 mEq/L 8-16 Anion Gap JOH[place] ([facility]) calcium level 8.8 mg/dL 8.5-10.1 Calcium Level JOHANA ( [facility]) ID Date Data Source [id number] 04/21/2021 06:10:00 PM EDT [place] ([facility]) Name Value Range Interpretation Code Description Data Larissa rce(s) Supporting Document(s) magnesium level 1.9 mg/dL 1.8-2.4 [facility] ID Date Data Source [id number] 04/21/2021 06:10:00 PM EDT [place] ([facility]) Name Value Range Interpretation Code Description Data Larissa rce(s) Supporting Document(s) ionized calcium 4.3 mg/dL 4.5-5.3 Below low normal Ionized Calciu m [place] ([facility]) ID Date Data Source [id number] 04/21/2021 06:10:00 PM EDT [facility]) Name Value Range Interpretation Code Description Data Larissa rce(s) Supporting Document(s) glucose, fasting 124 mg/dL 70-100 Above high normal Glucose, Fas ting [place] ([facility]) blood urea nitrogen 13 mg/dL 7-18 Blood Urea Nitro gen JOHANA ([facility]) glomerular filtration rate > 60.0 >58 Glomerula r Filtration Rate [place] ([facility]) creatinine for GFR 1.07 mg/dL 0.55-1.30 Creatinine for GF R JOHANA ([facility]) sodium level 141 mEq/L 136-145 Sodium Level JOHANA (No [facility]) potassium serum 3.7 mEq/L 3.5-5.1 Potassium Serum ATHE NA ([facility]) carbon dioxide level 27 mEq/L 21-32 Carbon Dioxide Level JOHAAN ([facility]) chloride level 105 mEq/L 98-107 Chloride Level JOHANA ([facility]) calcium level 8.8 mg/dL 8.5-10.1 Calcium Level [place] ( [facility]) anion gap 9 mEq/L 8-16 Anion Gap JOHANA ([facility]) ID Date Data Source [id number] 04/21/2021 06:10:00 PM EDT [facility]) Name Value Range Interpretation Code Description Data Larissa rce(s) Supporting Document(s) magnesium level 1.9 mg/dL 1.8-2.4 [facility] ID Date Data Source [id number] 04/21/2021 06:10:00 PM EDT [facility]) Name Value Range Interpretation Code Description Data Larissa rce(s) Supporting Document(s) ionized calcium 4.3 mg/dL 4.5-5.3 Below low normal Ionized Calciu m [place] ([facility]) ID Date Data Source [id number] 04/21/2021 06:10:00 PM EDT [facility]) Name Value Range Interpretation Code Description Data Larissa rce(s) Supporting Document(s) glucose, fasting 124 mg/dL 70-100 Above high normal Glucose, Fas ting [place] ([facility]) blood urea nitrogen 13 mg/dL 7-18 Blood Urea Nitro gen [place] ([facility]) creatinine for GFR 1.07 mg/dL 0.55-1.30 Creatinine for GF R [place] ([facility]) glomerular filtration rate > 60.0 >58 Glomerula r Filtration Rate [place] ([facility]) sodium level 141 mEq/L 136-145 Sodium Level JOHANA ([facility]) potassium serum 3.7 mEq/L 3.5-5.1 Potassium Serum ATHE NA ([facility]) chloride level 105 mEq/L 98-107 Chloride Level JOH[place] ([facility]) carbon dioxide level 27 mEq/L 21-32 Carbon Dioxide Level JOHANA ([facility]) anion gap 9 mEq/L 8-16 Anion Gap JOHANA ([facility]) calcium level 8.8 mg/dL 8.5-10.1 Calcium Level JOHANA ( [facility]) ID Date Data Source [id number] 04/21/2021 06:10:00 PM EDT [facility]) Name Value Range Interpretation Code Description Data Larissa rce(s) Supporting Document(s) magnesium level 1.9 mg/dL 1.8-2.4 [facility] ID Date Data Source [id number] 04/21/2021 06:10:00 PM EDT [facility]) Name Value Range Interpretation Code Description Data Larissa rce(s) Supporting Document(s) ionized calcium 4.3 mg/dL 4.5-5.3 Below low normal Ionized Calciu m [place] ([facility]) ID Date Data Source [id number] 04/21/2021 06:10:00 PM EDT [facility]) Name Value Range Interpretation Code Description Data Larissa rce(s) Supporting Document(s) glucose, fasting 124 mg/dL 70-100 Above high normal Glucose, Fas ting JOHANA ([facility]) blood urea nitrogen 13 mg/dL 7-18 Blood Urea Nitro gen JOHANA ([facility]) glomerular filtration rate > 60.0 >58 Glomerula r Filtration Rate JOHANA ([facility]) creatinine for GFR 1.07 mg/dL 0.55-1.30 Creatinine for GF R [place] ([facility]) sodium level 141 mEq/L 136-145 Sodium Level JOHANA ([facility]) potassium serum 3.7 mEq/L 3.5-5.1 Potassium Serum ATHE NA ([facility]) chloride level 105 mEq/L 98-107 Chloride Level [place] ([facility]) carbon dioxide level 27 mEq/L 21-32 Carbon Dioxide Level JOHANA ([facility]) anion gap 9 mEq/L 8-16 Anion Gap JOHANA ([facility]) calcium level 8.8 mg/dL 8.5-10.1 Calcium Level [place] ( [facility]) ID Date Data Source [id number] 04/21/2021 06:10:00 PM EDT [facility]) Name Value Range Interpretation Code Description Data Larissa rce(s) Supporting Document(s) magnesium level 1.9 mg/dL 1.8-2.4 [facility]) ID Date Data Source [id number] 04/21/2021 06:10:00 PM EDT [facility]) Name Value Range Interpretation Code Description Data Larissa rce(s) Supporting Document(s) ionized calcium 4.3 mg/dL 4.5-5.3 Below low normal Ionized Calciu m [place] ([facility]) ID Date Data Source [id number] 04/21/2021 06:10:00 PM EDT [facility]) Name Value Range Interpretation Code Description Data Larissa rce(s) Supporting Document(s) glucose, fasting 124 mg/dL 70-100 Above high normal Glucose, Fas ting [place] ([facility]) blood urea nitrogen 13 mg/dL 7-18 Blood Urea Nitro gen [place] ([facility]) creatinine for GFR 1.07 mg/dL 0.55-1.30 Creatinine for GF R [place] ([facility]) potassium serum 3.7 mEq/L 3.5-5.1 Potassium Serum ATHE NA ([facility]) sodium level 141 mEq/L 136-145 Sodium Level JOHANA ([facility]) glomerular filtration rate > 60.0 >58 Glomerula r Filtration Rate JOHANA ([facility]) chloride level 105 mEq/L 98-107 Chloride Level JOHANA ([facility]) carbon dioxide level 27 mEq/L 21-32 Carbon Dioxide Level JOHANA ([facility]) anion gap 9 mEq/L 8-16 Anion Gap JOHANA ([facility]) calcium level 8.8 mg/dL 8.5-10.1 Calcium Level JOHANA ( [facility]) ID Date Data Source [id number] 04/21/2021 06:10:00 PM EDT [facility]) Name Value Range Interpretation Code Description Data Larissa rce(s) Supporting Document(s) magnesium level 1.9 mg/dL 1.8-2.4 [facility]) ID Date Data Source [id number] 04/21/2021 06:10:00 PM EDT [facility]) Name Value Range Interpretation Code Description Data Larissa rce(s) Supporting Document(s) ionized calcium 4.3 mg/dL 4.5-5.3 Below low normal Ionized Calciu m [facility]) ID Date Data Source [id number] 04/21/2021 03:57:00 PM EDT [facility]) Name Value Range Interpretation Code Description Data Larissa rce(s) Supporting Document(s) CK-mb value mass 1.6 NG/mL <3.6 CK-mb Value Mass AT [facility]) CPK creatine phosphokinase 223 U/L 26-192 Above high nor mal CPK Creatine Phosphokinase JOHANA ([facility]) troponin I < 0.02 < 0.10 Troponin I JOHANA ([facility]) mb/CK relative index < or =4 mb[facility]CK [facility] ID Date Data Source [id number] 04/21/2021 03:57:00 PM EDT [facility]) Name Value Range Interpretation Code Description Data Larissa rce(s) Supporting Document(s) CPK creatine phosphokinase 223 U/L 26-192 Above high nor mal CPK Creatine Phosphokinase JOHANA ([facility]) CK-mb value mass 1.6 NG/mL <3.6 CK-mb Value Mass AT [facility]) mb/CK relative index < or =4 mb/CK [facility] troponin I < 0.02 < 0.10 Troponin I [facility]) ID Date Data Source [id number] 04/21/2021 03:57:00 PM EDT [facility]) Name Value Range Interpretation Code Description Data Larissa rce(s) Supporting Document(s) CPK creatine phosphokinase 223 U/L 26-192 Above high nor mal CPK Creatine Phosphokinase JOHANA ([facility]) mb/CK relative index < or =4 mb/CK Relative Index JOHANA ([facility]) CK-mb value mass 1.6 NG/mL <3.6 CK-mb Value Mass AT [facility]) troponin I < 0.02 < 0.10 Troponin I JOHANA ([facility]) ID Date Data Source [id number] 04/21/2021 03:57:00 PM [facility]T [facility] Name Value Range Interpretation Code Description Data Larissa rce(s) Supporting Document(s) CPK creatine phosphokinase 223 U/L 26-192 Above high nor mal CPK Creatine Phosphokinase [place] ([facility]) CK-mb value mass 1.6 NG/mL <3.6 CK-mb Value Mass AT [facility]) mb/CK relative index < or =4 mb/CK [facility] troponin I < 0.02 < 0.10 Troponin I JOHANA ([facility]) ID Date Data Source [id number] 04/21/2021 03:57:00 PM [facility]T [facility] Name Value Range Interpretation Code Description Data Larissa rce(s) Supporting Document(s) CPK creatine phosphokinase 223 U/L 26-192 Above high nor mal CPK Creatine Phosphokinase JOHANA ([facility]) CK-mb value mass 1.6 NG/mL <3.6 CK-mb Value Mass AT [facility] ([facility]) mb/CK relative index < or =4 mb/CK Relative Index JOHANA ([facility]) troponin I < 0.02 < 0.10 Troponin I JOHANA ([facility]) ID Date Data Source [id number] 04/21/2021 01:37:00 PM EDT [facility]) Name Value Range Interpretation Code Description Data Larissa rce(s) Supporting Document(s) T uptake 31 % 30-39 T Uptake JOHANA ([facility]) thyroxine (T4) 11.2 ug/dL 4.5-12.0 Thyroxine (T4) JOHANA ([facility]) free thyroxine index 3.5 % 1.3-4.8 Free Thyroxine Index JOHANA ([facility]) thyroid stimulating hormone 3.720 uIU/mL 0.358-3.740 Thyroid Stimulating Hormone JOHANA ([facility]) ID Date Data Source [id number] 04/21/2021 01:37:00 PM EDT [facility] Name Value Range Interpretation Code Description Data Larissa rce(s) Supporting Document(s) CK-mb value mass 1.6 NG/mL <3.6 CK-mb Value Mass AT [facility] ([facility]) CPK creatine phosphokinase 252 U/L 26-192 Above high nor mal CPK Creatine Phosphokinase JOHANA ([facility]) mb/CK relative index < or =4 mb/CK Relative Index JOHANA ([facility]) troponin I < 0.02 < 0.10 Troponin I JOHANA ([facility]) ID Date Data Source [id number] 04/21/2021 01:37:00 PM EDT [facility] Name Value Range Interpretation Code Description Data Larissa rce(s) Supporting Document(s) thyroxine (T4) 11.2 ug/dL 4.5-12.0 Thyroxine (T4) JOHANA ([facility]) T uptake 31 % 30-39 T Uptake JOHANA ([facility]) free thyroxine index 3.5 % 1.3-4.8 Free Thyroxine Index JOHANA ([facility]) thyroid stimulating hormone 3.720 uIU/mL 0.358-3.740 Thyroid Stimulating Hormone [place] ([facility]) ID Date Data Source [id number] 04/21/2021 01:37:00 PM EDT [facility] Name Value Range Interpretation Code Description Data Larissa rce(s) Supporting Document(s) CPK creatine phosphokinase 252 U/L 26-192 Above high nor mal CPK Creatine Phosphokinase JOHANA ([facility]) mb/CK relative index < or =4 mb/CK Relative Index JOHANA ([facility]) CK-mb value mass 1.6 NG/mL <3.6 CK-mb Value Mass AT [facility] ([facility]) troponin I < 0.02 < 0.10 Troponin I JOHANA ([facility]) ID Date Data Source [id number] 04/21/2021 01:37:00 PM EDT [facility]) Name Value Range Interpretation Code Description Data Larissa rce(s) Supporting Document(s) T uptake 31 % 30-39 T Uptake JOHANA ([facility]) thyroxine (T4) 11.2 ug/dL 4.5-12.0 Thyroxine (T4) JOHANA ([facility]) free thyroxine index 3.5 % 1.3-4.8 Free Thyroxine Index JOHANA ([facility]) thyroid stimulating hormone 3.720 uIU/mL 0.358-3.740 Thyroid Stimulating Hormone JOHANA ([facility]) ID Date Data Source [id number] 04/21/2021 01:37:00 PM [facility]T [facility] Name Value Range Interpretation Code Description Data Larissa rce(s) Supporting Document(s) CK-mb value mass 1.6 NG/mL <3.6 CK-mb Value Mass AT [facility] ([facility]) CPK creatine phosphokinase 252 U/L 26-192 Above high nor mal CPK Creatine Phosphokinase JOHANA ([facility]) mb/CK relative index < or =4 mb/CK Relative Index [place] ([facility]) troponin I < 0.02 < 0.10 Troponin I [place] ([facility]) ID Date Data Source [id number] 04/21/2021 01:37:00 PM EDT JOHANA ([facility]) Name Value Range Interpretation Code Description Data Larissa rce(s) Supporting Document(s) T uptake 31 % 30-39 T Uptake JOHANA ([facility]) thyroxine (T4) 11.2 ug/dL 4.5-12.0 Thyroxine (T4) JOHANA ([facility]) free thyroxine index 3.5 % 1.3-4.8 Free Thyroxine Index JOHANA ([facility]) thyroid stimulating hormone 3.720 uIU/mL 0.358-3.740 Thyroid Stimulating Hormone JOHANA ([facility]) ID Date Data Source [id number] 04/21/2021 01:37:00 PM EDT [facility] Name Value Range Interpretation Code Description Data Larissa rce(s) Supporting Document(s) CPK creatine phosphokinase 252 U/L 26-192 Above high nor mal CPK Creatine Phosphokinase JOHANA ([facility]) CK-mb value mass 1.6 NG/mL <3.6 CK-mb Value Mass AT [facility] ([facility]) mb/CK relative index < or =4 mb/CK Relative Index JOHANA ([facility]) troponin I < 0.02 < 0.10 Troponin I JOHANA ([facility]) ID Date Data Source [id number] 04/21/2021 01:37:00 PM EDT JOHANA ([facility]) Name Value Range Interpretation Code Description Data Larissa rce(s) Supporting Document(s) T uptake 31 % 30-39 T Uptake JOHANA ([facility]) thyroxine (T4) 11.2 ug/dL 4.5-12.0 Thyroxine (T4) JOHANA ([facility]) thyroid stimulating hormone 3.720 uIU/mL 0.358-3.740 Thyroid Stimulating Hormone JOHANA ([facility]) free thyroxine index 3.5 % 1.3-4.8 Free Thyroxine Index JOHANA ([facility]) ID Date Data Source [id number] 04/21/2021 01:37:00 PM EDT [facility]) Name Value Range Interpretation Code Description Data Larissa rce(s) Supporting Document(s) CPK creatine phosphokinase 252 U/L 26-192 Above high nor mal CPK Creatine Phosphokinase JOHANA ([facility]) CK-mb value mass 1.6 NG/mL <3.6 CK-mb Value Mass AT [facility] ([facility]) mb/CK relative index < or =4 mb/CK Relative Index JOHANA ([facility]) troponin I < 0.02 < 0.10 [facility] ID Date Data Source [id number] 04/21/2021 09:32:00 AM EDT [facility]) Name Value Range Interpretation Code Description Data Larissa rce(s) Supporting Document(s) nt-pro BNP 3656 pg/mL <125 Above high normal Nt-pro BNP JOHANA ([facility]) ID Date Data Source [id number] 04/21/2021 09:32:00 AM EDT [facility]) Name Value Range Interpretation Code Description Data Larissa rce(s) Supporting Document(s) glucose, fasting 85 mg/dL 70-100 Glucose, Fasting AT [facility]) blood urea nitrogen 11 mg/dL 7-18 Blood Urea Nitro gen JOHANA ([facility]) creatinine for GFR 0.78 mg/dL 0.55-1.30 Creatinine for GF R [place] ([facility]) glomerular filtration rate > 60.0 >58 Glomerula r Filtration Rate [place] ([facility]) potassium serum 4.0 mEq/L 3.5-5.1 [facility]) sodium level 141 mEq/L 136-145 Sodium Level JOHANA ([facility]) carbon dioxide level 23 mEq/L 21-32 Carbon Dioxide Level JOHANA ([facility]) chloride level 112 mEq/L 98-107 Above high normal Chloride Level [place] ([facility]) anion gap 6 mEq/L 8-16 Below low normal Anion Gap [place] ( [facility]) calcium level 7.8 mg/dL 8.5-10.1 Below low normal Calcium Level AT [facility]) ID Date Data Source [id number] 04/21/2021 09:32:00 AM EDT [facility]) Name Value Range Interpretation Code Description Data Larissa rce(s) Supporting Document(s) AST/SGOT 22 U/L 7-37 AST/SGOT JOHANA ([facility]) ALT/SGPT 31 U/L 12-78 ALT/SGPT JOHANA ([facility]) alkaline phosphatase 54 U/L 45-117 Alkaline Phosph atase JOHANA ([facility]) bilirubin,total 0.4 mg/dL 0.2-1.0 Bilirubin,total [facility] ([facility]) bilirubin,direct 0.1 mg/dL 0.0-0.2 Bilirubin,direct AT [facility]) total protein 6.1 gm/dL 6.4-8.2 Below low normal Total Protein AT [facility]) albumin 3.4 gm/dL 3.2-5.2 Albumin JOHANA ([facility]) albumin/globulin ratio 1.2-2.2 Albumin/globu lilian Ratio [place] ([facility]) ID Date Data Source [id number] 04/21/2021 09:32:00 AM EDT [facility]) Name Value Range Interpretation Code Description Data Larissa rce(s) Supporting Document(s) CPK creatine phosphokinase 200 U/L 26-192 Above high nor mal CPK Creatine Phosphokinase [place] ([facility]) mb/CK relative index < or =4 mb/CK Relative Index [place] ([facility]) CK-mb value mass 2.5 NG/mL <3.6 CK-mb Value Mass AT [facility]) troponin I < 0.02 < 0.10 Troponin I [place] ([facility]) ID Date Data Source [id number] 04/21/2021 09:32:00 AM EDT [facility]) Name Value Range Interpretation Code Description Data Larissa rce(s) Supporting Document(s) white blood count 7.9 10 4.0-10.0 White Blood Count [place] ([facility]) red blood count 3.64 10 4.00-5.40 Below low normal Red Blood Coun t JOHANA ([facility]) hemoglobin 10.5 g/dL 12.0-15.5 Below low normal Hemoglobin JOHANA ( [facility]) hematocrit 33.5 % 36.0-47.0 Below low normal Hematocrit JOHANA ( [facility]) mean corpuscular volume 92.0 fL 80.0-96.0 Mean Corpusc ular Volume [place] ([facility]) mean corpuscular HGB conc 31.3 g/dL 32.0-36.5 Below low lin l Mean Corpuscular HGB Conc JOHANA ([facility]) mean corpuscular hemoglobin 28.8 pg 27.0-33.0 Mean Cor puscular Hemoglobin JOHANA ([facility]) red cell distribution width 15.0 % 11.5-14.5 Above high no rmal Red Cell Distribution Width JOHANA ([facility]) platelet count, automated 256 10 150-450 Platelet C ount, Automated JOHANA ([facility]) neutrophils % 70.1 % 36.0-66.0 Above high normal Neutrophils % A THENA ([facility]) mono % 7.0 % 2.0-8.0 Gregory % JOHANA ([facility]) lymph % 19.7 % 24.0-44.0 Below low normal Lymph % JOHANA ( [facility]) eos % 2.3 % 0.0-3.0 Eos % JOHANA ([facility]) baso % 0.5 % 0.0-1.0 Baso % JOHANA ([facility]) immature granulocyte % 0.4 % 0-3.0 Immature Gran ulocyte % JOHANA ([facility]) nucleated red blood cell % 0.0 % 0-0 Nucleated Red Blood Cell % JOHANA ([facility]) neutrophils # 5.6 10 1.5-8.5 Neutrophils # JOHANA ( [facility]) mono # 0.6 10 0.0-0.8 Gregory # JOHANA ([facility]) lymph # 1.6 10 1.5-5.0 Lymph # JOHANA ([facility]) eos # 0.2 10 0.0-0.5 Eos # JOHANA ([facility]) baso # 0.0 10 0.0-0.2 Baso # JOHANA ([facility]) ID Date Data Source [id number] 04/21/2021 09:32:00 AM EDT [place] ([facility]) Name Value Range Interpretation Code Description Data Larissa rce(s) Supporting Document(s) ID Date Data Source [id number] 04/21/2021 09:32:00 AM EDT [facility]) Name Value Range Interpretation Code Description Data Larissa rce(s) Supporting Document(s) thyroid stimulating hormone 6.040 uIU/mL 0.358-3.740 Above high no rmal Thyroid Stimulating Hormone [facility]) ID Date Data Source [id number] 04/21/2021 09:32:00 AM EDT [facility]) Name Value Range Interpretation Code Description Data Larissa rce(s) Supporting Document(s) nt-pro BNP 3656 pg/mL <125 Above high normal Nt-pro BNP [facility]) ID Date Data Source [id number] 04/21/2021 09:32:00 AM EDT [facility]) Name Value Range Interpretation Code Description Data Larissa rce(s) Supporting Document(s) glucose, fasting 85 mg/dL 70-100 Glucose, Fasting AT [facility]) blood urea nitrogen 11 mg/dL 7-18 Blood Urea Nitro gen [place] ([facility]) creatinine for GFR 0.78 mg/dL 0.55-1.30 Creatinine for GF R [facility]) glomerular filtration rate > 60.0 >58 Glomerula r Filtration Rate [place] ([facility]) sodium level 141 mEq/L 136-145 Sodium Level JOHANA ([facility]) chloride level 112 mEq/L 98-107 Above high normal Chloride Level [place] ([facility]) potassium serum 4.0 mEq/L 3.5-5.1 Potassium Serum ATH NA [facility]) carbon dioxide level 23 mEq/L 21-32 Carbon Dioxide Level [facility]) anion gap 6 mEq/L 8-16 Below low normal Anion Gap [facility]) calcium level 7.8 mg/dL 8.5-10.1 Below low normal Calcium Level AT [facility]) ID Date Data Source [id number] 04/21/2021 09:32:00 AM EDT JOHANA ([facility]) Name Value Range Interpretation Code Description Data Larissa rce(s) Supporting Document(s) AST/SGOT 22 U/L 7-37 AST/SGOT JOHANA ([facility]) ALT/SGPT 31 U/L 12-78 ALT/SGPT JOHANA ([facility]) alkaline phosphatase 54 U/L 45-117 Alkaline Phosph atase JOHANA ([facility]) bilirubin,total 0.4 mg/dL 0.2-1.0 Bilirubin,total [facility] ([facility]) total protein 6.1 gm/dL 6.4-8.2 Below low normal Total Protein AT [facility]) bilirubin,direct 0.1 mg/dL 0.0-0.2 Bilirubin,direct AT [facility] ([facility]) albumin 3.4 gm/dL 3.2-5.2 Albumin JOHANA ([facility]) albumin/globulin ratio 1.2-2.2 Albumin/globu lilian Ratio JOHANA ([facility]) ID Date Data Source [id number] 04/21/2021 09:32:00 AM EDT JOHANA ([facility]) Name Value Range Interpretation Code Description Data Larissa rce(s) Supporting Document(s) CPK creatine phosphokinase 200 U/L 26-192 Above high nor mal CPK Creatine Phosphokinase JOHANA ([facility]) CK-mb value mass 2.5 NG/mL <3.6 CK-mb Value Mass AT [facility] ([facility]) mb/CK relative index < or =4 mb/CK Relative Index JOHANA ([facility]) troponin I < 0.02 < 0.10 Troponin I JOHANA ([facility]) ID Date Data Source [id number] 04/21/2021 09:32:00 AM EDT JOHANA ([facility]) Name Value Range Interpretation Code Description Data Larissa rce(s) Supporting Document(s) white blood count 7.9 10 4.0-10.0 White Blood Count JOHANA ([facility]) red blood count 3.64 10 4.00-5.40 Below low normal Red Blood Coun t JOHANA ([facility]) hemoglobin 10.5 g/dL 12.0-15.5 Below low normal Hemoglobin JOHANA ( [facility]) hematocrit 33.5 % 36.0-47.0 Below low normal Hematocrit JOHANA ( [facility]) mean corpuscular volume 92.0 fL 80.0-96.0 Mean Corpusc ular Volume JOHANA ([facility]) mean corpuscular HGB conc 31.3 g/dL 32.0-36.5 Below low lin l Mean Corpuscular HGB Conc JOHANA ([facility]) mean corpuscular hemoglobin 28.8 pg 27.0-33.0 Mean Cor puscular Hemoglobin JOHANA ([facility]) platelet count, automated 256 10 150-450 Platelet C ount, Automated JOHANA ([facility]) red cell distribution width 15.0 % 11.5-14.5 Above high no rmal Red Cell Distribution Width JOHANA ([facility]) neutrophils % 70.1 % 36.0-66.0 Above high normal Neutrophils % A THENA ([facility]) lymph % 19.7 % 24.0-44.0 Below low normal Lymph % JOHANA ( [facility]) mono % 7.0 % 2.0-8.0 Gregory % JOHANA ([facility]) baso % 0.5 % 0.0-1.0 Baso % JOHANA ([facility]) eos % 2.3 % 0.0-3.0 Eos % JOHANA ([facility]) immature granulocyte % 0.4 % 0-3.0 Immature Gran ulocyte % JOHANA ([facility]) nucleated red blood cell % 0.0 % 0-0 Nucleated Red Blood Cell % JOHANA ([facility]) neutrophils # 5.6 10 1.5-8.5 Neutrophils # JOHANA ( [facility]) lymph # 1.6 10 1.5-5.0 Lymph # JOHANA ([facility]) mono # 0.6 10 0.0-0.8 Gregory # JOHANA ([facility]) baso # 0.0 10 0.0-0.2 Baso # JOHANA ([facility]) eos # 0.2 10 0.0-0.5 Eos # JOHANA ([facility]) ID Date Data Source [id number] 04/21/2021 09:32:00 AM EDT [place] ([facility]) Name Value Range Interpretation Code Description Data Larissa rce(s) Supporting Document(s) ID Date Data Source [id number] 04/21/2021 09:32:00 AM EDT [place] ([facility]) Name Value Range Interpretation Code Description Data Larissa rce(s) Supporting Document(s) thyroid stimulating hormone 6.040 uIU/mL 0.358-3.740 Above high no rmal Thyroid Stimulating Hormone [place] ([facility]) ID Date Data Source [id number] 04/21/2021 09:32:00 AM EDT [facility]) Name Value Range Interpretation Code Description Data Larissa rce(s) Supporting Document(s) nt-pro BNP 3656 pg/mL <125 Above high normal Nt-pro BNP [facility]) ID Date Data Source [id number] 04/21/2021 09:32:00 AM EDT [place] ([facility]) Name Value Range Interpretation Code Description Data Larissa rce(s) Supporting Document(s) glucose, fasting 85 mg/dL 70-100 Glucose, Fasting AT [facility] ([facility]) creatinine for GFR 0.78 mg/dL 0.55-1.30 Creatinine for GF R [place] ([facility]) blood urea nitrogen 11 mg/dL 7-18 Blood Urea Nitro gen [place] ([facility]) sodium level 141 mEq/L 136-145 Sodium Level JOHANA ([facility]) glomerular filtration rate > 60.0 >58 Glomerula r Filtration Rate JOHANA ([facility]) potassium serum 4.0 mEq/L 3.5-5.1 Potassium Serum [facility] ([facility]) chloride level 112 mEq/L 98-107 Above high normal Chloride Level JOHANA ([facility]) carbon dioxide level 23 mEq/L 21-32 Carbon Dioxide Level JOHANA ([facility]) anion gap 6 mEq/L 8-16 Below low normal Anion Gap JOHANA ( [facility]) calcium level 7.8 mg/dL 8.5-10.1 Below low normal Calcium Level AT [facility]) ID Date Data Source [id number] 04/21/2021 09:32:00 AM EDT JOHANA ([facility]) Name Value Range Interpretation Code Description Data Larissa rce(s) Supporting Document(s) AST/SGOT 22 U/L 7-37 AST/SGOT JOHANA ([facility]) ALT/SGPT 31 U/L 12-78 ALT/SGPT JOHANA ([facility]) alkaline phosphatase 54 U/L 45-117 Alkaline Phosph atase JOHANA ([facility]) bilirubin,total 0.4 mg/dL 0.2-1.0 Bilirubin,total AT[facility]) bilirubin,direct 0.1 mg/dL 0.0-0.2 Bilirubin,direct AT [facility]) total protein 6.1 gm/dL 6.4-8.2 Below low normal Total Protein AT [facility]) albumin 3.4 gm/dL 3.2-5.2 Albumin JOHANA ([facility]) albumin/globulin ratio 1.2-2.2 Albumin/globu lilian Ratio [place] ([facility]) ID Date Data Source [id number] 04/21/2021 09:32:00 [facility] Name Value Range Interpretation Code Description Data Larissa rce(s) Supporting Document(s) CPK creatine phosphokinase 200 U/L 26-192 Above high nor mal CPK Creatine Phosphokinase JOHANA ([facility]) mb/CK relative index < or =4 mb/CK Relative Index [place] ([facility]) CK-mb value mass 2.5 NG/mL <3.6 CK-mb Value Mass AT [facility] ([facility]) troponin I < 0.02 < 0.10 Troponin I [place] ([facility]) ID Date Data Source [id number] 04/21/2021 09:32:00 AM EDT [place] ([facility]) Name Value Range Interpretation Code Description Data Larissa rce(s) Supporting Document(s) white blood count 7.9 10 4.0-10.0 White Blood Count [place] ([facility]) red blood count 3.64 10 4.00-5.40 Below low normal Red Blood Coun t [place] ([facility]) hemoglobin 10.5 g/dL 12.0-15.5 Below low normal Hemoglobin [place] ( [facility]) hematocrit 33.5 % 36.0-47.0 Below low normal Hematocrit [place] ( [facility]) mean corpuscular volume 92.0 fL 80.0-96.0 Mean Corpusc ular Volume [place] ([facility]) mean corpuscular hemoglobin 28.8 pg 27.0-33.0 Mean Cor puscular Hemoglobin [place] ([facility]) mean corpuscular HGB conc 31.3 g/dL 32.0-36.5 Below low lin l Mean Corpuscular HGB Conc JOHANA ([facility]) red cell distribution width 15.0 % 11.5-14.5 Above high no rmal Red Cell Distribution Width [place] ([facility]) platelet count, automated 256 10 150-450 Platelet C ount, [facility]ated [facility] lymph % 19.7 % 24.0-44.0 Below low normal Lymph % [place] ( [facility]) neutrophils % 70.1 % 36.0-66.0 Above high normal Neutrophils % A THENA ([facility]) mono % 7.0 % 2.0-8.0 Gregory % JOHANA ([facility]) eos % 2.3 % 0.0-3.0 Eos % JOHANA ([facility]) baso % 0.5 % 0.0-1.0 Baso % [place] ([facility]) immature granulocyte % 0.4 % 0-3.0 Immature Gran ulocyte % JOHANA ([facility]) nucleated red blood cell % 0.0 % 0-0 Nucleated Red Blood Cell % JOHANA ([facility]) neutrophils # 5.6 10 1.5-8.5 Neutrophils # [place] ( [facility]) lymph # 1.6 10 1.5-5.0 Lymph # [place] ([facility]) mono # 0.6 10 0.0-0.8 Gregory # JOHANA ([facility]) eos # 0.2 10 0.0-0.5 Eos # JOHANA ([facility]) baso # 0.0 10 0.0-0.2 Baso # JOHANA ([facility]) ID Date Data Source [id number] 04/21/2021 09:32:00 AM EDT [facility] Name Value Range Interpretation Code Description Data Larissa rce(s) Supporting Document(s) SARS-CoV-2 (COVID 19) NEGATIVE - SARS-CoV-2 (COVID19) [facility] This lab was ordered by [facility] a nd reported by [facility]. ID Date Data Source [id number] 04/21/2021 09:32:00 AM EDT [place] ([facility]) Name Value Range Interpretation Code Description Data Larissa rce(s) Supporting Document(s) ID Date Data Source [id number] 04/21/2021 09:32:00 AM EDT [place] ([facility]) Name Value Range Interpretation Code Description Data Larissa rce(s) Supporting Document(s) thyroid stimulating hormone 6.040 uIU/mL 0.358-3.740 Above high no rmal Thyroid Stimulating Hormone [place] ([facility]) ID Date Data Source [id number] 04/21/2021 09:32:00 AM EDT [facility]) Name Value Range Interpretation Code Description Data Larissa rce(s) Supporting Document(s) nt-pro BNP 3656 pg/mL <125 Above high normal Nt-pro BNP [facility]) ID Date Data Source [id number] 04/21/2021 09:32:00 AM EDT [facility]) Name Value Range Interpretation Code Description Data Larissa rce(s) Supporting Document(s) glucose, fasting 85 mg/dL 70-100 Glucose, Fasting AT [facility]) blood urea nitrogen 11 mg/dL 7-18 Blood Urea Nitro gen [place] ([facility]) creatinine for GFR 0.78 mg/dL 0.55-1.30 Creatinine for GF R [place] ([facility]) glomerular filtration rate > 60.0 >58 Glomerula r Filtration Rate [place] ([facility]) potassium serum 4.0 mEq/L 3.5-5.1 Potassium Serum ATH NA ([facility]) sodium level 141 mEq/L 136-145 Sodium Level JOHANA (No [facility]) chloride level 112 mEq/L 98-107 Above high normal Chloride Level [place] ([facility]) carbon dioxide level 23 mEq/L 21-32 Carbon Dioxide Level [facility]) anion gap 6 mEq/L 8-16 Below low normal Anion Gap [place] ( [facility]) calcium level 7.8 mg/dL 8.5-10.1 Below low normal Calcium Level AT [facility]) ID Date Data Source [id number] 04/21/2021 09:32:00 AM EDT [facility]) Name Value Range Interpretation Code Description Data Larissa rce(s) Supporting Document(s) AST/SGOT 22 U/L 7-37 AST/SGOT JOHANA ([facility]) ALT/SGPT 31 U/L 12-78 ALT/SGPT JOHANA ([facility]) alkaline phosphatase 54 U/L 45-117 Alkaline Phosph atase JOHANA ([facility]) bilirubin,total 0.4 mg/dL 0.2-1.0 Bilirubin,total [facility] ([facility]) bilirubin,direct 0.1 mg/dL 0.0-0.2 Bilirubin,direct AT [facility] ([facility]) total protein 6.1 gm/dL 6.4-8.2 Below low normal Total Protein AT [facility]) albumin 3.4 gm/dL 3.2-5.2 Albumin [place] ([facility]) albumin/globulin ratio 1.2-2.2 Albumin/globu lilian Ratio [place] ([facility]) ID Date Data Source [id number] 04/21/2021 09:32:00 AM EDT [place] ([facility]) Name Value Range Interpretation Code Description Data Larissa rce(s) Supporting Document(s) CPK creatine phosphokinase 200 U/L 26-192 Above high nor mal CPK Creatine Phosphokinase JOHANA ([facility]) CK-mb value mass 2.5 NG/mL <3.6 CK-mb Value Mass AT [facility] ([facility]) mb/CK relative index < or =4 mb/CK Relative Index JOH[facility] ([facility]) troponin I < 0.02 < 0.10 Troponin I [place] ([facility]) ID Date Data Source [id number] 04/21/2021 09:32:00 AM EDT [facility]) Name Value Range Interpretation Code Description Data Larissa rce(s) Supporting Document(s) white blood count 7.9 10 4.0-10.0 White Blood Count JOHANA ([facility]) red blood count 3.64 10 4.00-5.40 Below low normal Red Blood Coun t JOHANA ([facility]) hemoglobin 10.5 g/dL 12.0-15.5 Below low normal Hemoglobin JOHANA ( [facility]) hematocrit 33.5 % 36.0-47.0 Below low normal Hematocrit JOHANA ( [facility]) mean corpuscular volume 92.0 fL 80.0-96.0 Mean Corpusc ular Volume JOHANA ([facility]) mean corpuscular hemoglobin 28.8 pg 27.0-33.0 Mean Cor puscular Hemoglobin JOHANA ([facility]) mean corpuscular HGB conc 31.3 g/dL 32.0-36.5 Below low lin l Mean Corpuscular HGB Conc JOHANA ([facility]) red cell distribution width 15.0 % 11.5-14.5 Above high no rmal Red Cell Distribution Width JOHANA ([facility]) platelet count, automated 256 10 150-450 Platelet C ount, Automated JOHANA ([facility]) neutrophils % 70.1 % 36.0-66.0 Above high normal Neutrophils % A THENA ([facility]) lymph % 19.7 % 24.0-44.0 Below low normal Lymph % JOHANA ( [facility]) mono % 7.0 % 2.0-8.0 Gregory % JOHANA ([facility]) eos % 2.3 % 0.0-3.0 Eos % JOHANA ([facility]) baso % 0.5 % 0.0-1.0 Baso % JOHANA ([facility]) immature granulocyte % 0.4 % 0-3.0 Immature Gran ulocyte % JOHANA ([facility]) nucleated red blood cell % 0.0 % 0-0 Nucleated Red Blood Cell % JOHANA ([facility]) neutrophils # 5.6 10 1.5-8.5 Neutrophils # JOHANA ( [facility]) lymph # 1.6 10 1.5-5.0 Lymph # JOHANA ([facility]) eos # 0.2 10 0.0-0.5 Eos # J[facility] ([facility]) mono # 0.6 10 0.0-0.8 Gregory # JOHANA ([facility]) baso # 0.0 10 0.0-0.2 Baso # JOHANA ([facility]) ID Date Data Source [id number] 04/21/2021 09:32:00 AM EDT [place] ([facility]) Name Value Range Interpretation Code Description Data Larissa rce(s) Supporting Document(s) ID Date Data Source [id number] 04/21/2021 09:32:00 AM EDT J[facility] ([facility]) Name Value Range Interpretation Code Description Data Larissa rce(s) Supporting Document(s) thyroid stimulating hormone 6.040 uIU/mL 0.358-3.740 Above high no rmal Thyroid Stimulating Hormone [place] ([facility]) ID Date Data Source [id number] 04/21/2021 09:32:00 AM EDT [place] ([facility]) Name Value Range Interpretation Code Description Data Larissa rce(s) Supporting Document(s) nt-pro BNP 3656 pg/mL <125 Above high normal Nt-pro BNP [place] ([facility]) ID Date Data Source [id number] 04/21/2021 09:32:00 AM EDT [facility]) Name Value Range Interpretation Code Description Data Larissa rce(s) Supporting Document(s) glucose, fasting 85 mg/dL 70-100 Glucose, Fasting AT [facility]) blood urea nitrogen 11 mg/dL 7-18 Blood Urea Nitro gen JOHANA ([facility]) glomerular filtration rate > 60.0 >58 Glomerula r Filtration Rate JOHANA ([facility]) creatinine for GFR 0.78 mg/dL 0.55-1.30 Creatinine for GF R JOHANA ([facility]) sodium level 141 mEq/L 136-145 Sodium Level JOHANA ([facility]) potassium serum 4.0 mEq/L 3.5-5.1 Potassium Serum ATHE NA ([facility]) chloride level 112 mEq/L 98-107 Above high normal Chloride Level JOHANA ([facility]) carbon dioxide level 23 mEq/L 21-32 Carbon Dioxide Level J[facility] ([facility]) anion gap 6 mEq/L 8-16 Below low normal Anion Gap JOHANA ( [facility]) calcium level 7.8 mg/dL 8.5-10.1 Below low normal Calcium Level AT [facility]) ID Date Data Source [id number] 04/21/2021 09:32:00 AM EDT [place] ([facility]) Name Value Range Interpretation Code Description Data Larissa rce(s) Supporting Document(s) AST/SGOT 22 U/L 7-37 AST/SGOT J[facility] ([facility]) ALT/SGPT 31 U/L 12-78 ALT/SGPT [place] ([facility]) alkaline phosphatase 54 U/L 45-117 Alkaline Phosph atase JOH[facility] ([facility]) bilirubin,total 0.4 mg/dL 0.2-1.0 Bilirubin,total [facility] ([facility]) total protein 6.1 gm/dL 6.4-8.2 Below low normal Total Protein AT [facility] ([facility]) bilirubin,direct 0.1 mg/dL 0.0-0.2 Bilirubin,direct AT [facility] ([facility]) albumin 3.4 gm/dL 3.2-5.2 Albumin JOHANA ([facility]) albumin/globulin ratio 1.2-2.2 Albumin/globu lilian Ratio [place] ([facility]) ID Date Data Source [id number] 04/21/2021 09:32:00 AM EDT [place] ([facility]) Name Value Range Interpretation Code Description Data Larissa rce(s) Supporting Document(s) CPK creatine phosphokinase 200 U/L 26-192 Above high nor mal CPK Creatine Phosphokinase [facility]OH[facility] ([facility]) CK-mb value mass 2.5 NG/mL <3.6 CK-mb Value Mass AT [facility] ([facility]) mb/CK relative index < or =4 mb/CK Relative Index [facility] ([facility]) troponin I < 0.02 < 0.10 Troponin I [facility] ([facility]) ID Date Data Source [id number] 04/21/2021 09:32:00 AM EDT [place] ([facility]) Name Value Range Interpretation Code Description Data Larissa rce(s) Supporting Document(s) white blood count 7.9 10 4.0-10.0 White Blood Count JOH[facility] ([facility]) red blood count 3.64 10 4.00-5.40 Below low normal Red Blood Coun t [place] ([facility]) hemoglobin 10.5 g/dL 12.0-15.5 Below low normal Hemoglobin [place] ( [facility]) hematocrit 33.5 % 36.0-47.0 Below low normal Hematocrit J[facility] ( [facility]) mean corpuscular volume 92.0 fL 80.0-96.0 Mean Corpusc ular Volume J[facility] ([facility]) mean corpuscular hemoglobin 28.8 pg 27.0-33.0 Mean Cor puscular Hemoglobin [facility]OH[facility] ([facility]) mean corpuscular HGB conc 31.3 g/dL 32.0-36.5 Below low lin l Mean Corpuscular HGB Conc [facility] ([facility]) red cell distribution width 15.0 % 11.5-14.5 Above high no rmal Red Cell Distribution Width [facility] ([facility]) platelet count, automated 256 10 150-450 Platelet C ount, Automated J[facility] ([facility]) neutrophils % 70.1 % 36.0-66.0 Above high normal Neutrophils % A THENA ([facility]) lymph % 19.7 % 24.0-44.0 Below low normal Lymph % [place] ( [facility]) mono % 7.0 % 2.0-8.0 Gregory % JOH[facility] ([facility]) eos % 2.3 % 0.0-3.0 Eos % [facility] ([facility]) baso % 0.5 % 0.0-1.0 Baso % [facility] ([facility]) immature granulocyte % 0.4 % 0-3.0 Immature Gran ulocyte % [facility] ([facility]) nucleated red blood cell % 0.0 % 0-0 Nucleated Red Blood Cell % [facility] ([facility]) neutrophils # 5.6 10 1.5-8.5 Neutrophils # [facility] ( [facility]) lymph # 1.6 10 1.5-5.0 Lymph # [facility] ([facility]) mono # 0.6 10 0.0-0.8 Gregory # [facility] ([facility]) eos # 0.2 10 0.0-0.5 Eos # [facility] ([facility]) baso # 0.0 10 0.0-0.2 Baso # [facility] ([facility]) ID Date Data Source [id number] 04/21/2021 09:32:00 AM EDT [place] ([facility]) Name Value Range Interpretation Code Description Data Larissa rce(s) Supporting Document(s) ID Date Data Source [id number] 04/21/2021 09:32:00 AM EDT [facility]) Name Value Range Interpretation Code Description Data Larissa rce(s) Supporting Document(s) thyroid stimulating hormone 6.040 uIU/mL 0.358-3.740 Above high no rmal Thyroid Stimulating Hormone [place] ([facility]) ID Date Data Source [id number] 04/16/2021 02:13:00 PM EDT [facility]) Name Value Range Interpretation Code Description Data Larissa rce(s) Supporting Document(s) cardiolipin IgG antibody <9 0-14 Cardiolipin IgG Antibody [place] ([facility]) cardiolipin IgA antibody <9 0-11 Cardiolipin IgA Antibody [place] ([facility]) cardiolipin IgM antibody <9 0-12 Cardiolipin IgM Antibody [facility] ([facility]) ID Date Data Source [id number] 04/16/2021 02:13:00 PM EDT [facility]) Name Value Range Interpretation Code Description Data Larissa rce(s) Supporting Document(s) factor V leiden for medinet . Factor v Leiden for Medinet [facility] ([facility]) ID Date Data Source [id number] 04/16/2021 02:13:00 PM EDT [place] ([facility]) Name Value Range Interpretation Code Description Data Larissa rce(s) Supporting Document(s) factor II prothrombin gene an . Factor II Prothrombin Gene an [facility]) ID Date Data Source [id number] 04/16/2021 02:13:00 PM EDT [facility]) Name Value Range Interpretation Code Description Data Larissa rce(s) Supporting Document(s) protein S functional activity 109 % 63-140 Protei n S Functional Activity [place] ([facility]) ID Date Data Source [id number] 04/16/2021 02:13:00 PM EDT [facility]) Name Value Range Interpretation Code Description Data Larissa rce(s) Supporting Document(s) protein C functional activity 112 % 73-180 Prote in C Functional Activity [facility] ([facility]) ID Date Data Source [id number] 04/16/2021 02:13:00 PM EDT [facility]) Name Value Range Interpretation Code Description Data Larissa rce(s) Supporting Document(s) anti thrombin 3 antigen immuno 87 % 72-124 Anti Thrombin 3 Antigen Immuno [facility] ([facility]) anti thrombin 3 funct activity 107 % 75-135 Anti Thrombin 3 Funct Activity [place] ([facility]) ID Date Data Source [id number] 04/16/2021 02:13:00 PM EDT [facility]OH[facility] ([facility]) Name Value Range Interpretation Code Description Data Larissa rce(s) Supporting Document(s) beta-2 glycoprotein I cy IgG <9 0-20 Beta-2 Glycoprotein I Cy IgG [facility] ([facility]) beta-2 glycoprotein I cy IgM <9 0-32 Beta-2 Glycoprotein I Cy IgM [facility] ([facility]) beta-2 glycoprotein I cy IgA <9 0-25 Beta-2 Glycoprotein I Yc IgA [facility] ([facility]) ID Date Data Source [id number] 04/16/2021 02:13:00 [facility] Name Value Range Interpretation Code Description Data Larissa rce(s) Supporting Document(s) PTT lupus type anticoag screen 0-1.2 PTT L [facility]us Type [facility] ID Date Data Source [id number] 04/16/2021 02:13:00 PM EDT [facility]) Name Value Range Interpretation Code Description Data Larissa rce(s) Supporting Document(s) ferritin 45 NG/mL 8-252 Ferritin [facility] ([facility]) ID Date Data Source [id number] 04/16/2021 02:13:00 PM EDT [facility]) Name Value Range Interpretation Code Description Data Larissa rce(s) Supporting Document(s) folate 6.9 NG/mL >5.4 Folate [facility] ([facility]) ID Date Data Source [id number] 04/16/2021 02:13:00 PM EDT [facility]) Name Value Range Interpretation Code Description Data Larissa rce(s) Supporting Document(s) vitamin B12 level 245 pg/mL 247-911 Below low normal Vitamin B12 Level [facility] ([facility]) ID Date Data Source [id number] 04/16/2021 02:13:00 PM EDT [facility]) Name Value Range Interpretation Code Description Data Larissa rce(s) Supporting Document(s) iron (fe) 85 ug/dL 50-170 Iron (Fe) [place] ([facility]) total iron binding capacity 308 ug/dL 250-450 Total Ir on Binding Capacity [place] ([facility]) percent saturation 27.6 % 13.2-45.0 Percent Saturatio n [place] ([facility]) ID Date Data Source [id number] 04/16/2021 02:13:00 PM EDT [place] ([facility]) Name Value Range Interpretation Code Description Data Larissa rce(s) Supporting Document(s) glucose, fasting 86 mg/dL 70-100 Glucose, Fasting AT [facility]) creatinine for GFR 0.79 mg/dL 0.55-1.30 Creatinine for GF R [place] ([facility]) blood urea nitrogen 13 mg/dL 7-18 Blood Urea Nitro gen [facility] ([facility]) sodium level 142 mEq/L 136-145 Sodium Level [place] ([facility]) glomerular filtration rate > 60.0 >58 Glomerula r Filtration Rate [place] ([facility]) potassium serum 3.7 mEq/L 3.5-5.1 [facility] chloride level 110 mEq/L 98-107 Above high normal Chloride Level [place] ([facility]) carbon dioxide level 28 mEq/L 21-32 Carbon Dioxide Level [place] ([facility]) calcium level 8.3 mg/dL 8.5-10.1 Below low normal Calcium Level AT [facility]) anion gap 4 mEq/L 8-16 Below low normal Anion Gap [place] ( [facility]) AST/SGOT 15 U/L 7-37 AST/SGOT [place] ([facility]) ALT/SGPT 21 U/L 12-78 ALT/SGPT [place] ([facility]) alkaline phosphatase 59 U/L 45-117 Alkaline Phosph atase [facility] ([facility]) bilirubin,total 0.4 mg/dL 0.2-1.0 Bilirubin,total ATHE NA ([facility]) total protein 6.4 gm/dL 6.4-8.2 Total Protein [facility] ( [facility]) albumin 3.6 gm/dL 3.2-5.2 Albumin [facility] ([facility]) albumin/globulin ratio 1.2-2.2 Albumin/globu lilian Ratio [facility] ([facility]) ID Date Data Source [id number] 04/16/2021 02:13:00 PM EDT [facility] ([facility]) Name Value Range Interpretation Code Description Data Larissa rce(s) Supporting Document(s) white blood count 6.0 10 4.0-10.0 White Blood Count [facility] ([facility]) red blood count 4.24 10 4.00-5.40 Red Blood Count [facility] ([facility]) hematocrit 38.6 % 36.0-47.0 Hematocrit [facility] ([facility]) hemoglobin 12.0 g/dL 12.0-15.5 Hemoglobin [facility] ([facility]) mean corpuscular hemoglobin 28.3 pg 27.0-33.0 Mean Cor puscular Hemoglobin [facility] ([facility]) mean corpuscular volume 91.0 fL 80.0-96.0 Mean Corpusc ular Volume [facility] ([facility]) red cell distribution width 14.6 % 11.5-14.5 Above high no rmal Red Cell Distribution Width [facility] ([facility]) mean corpuscular HGB conc 31.1 g/dL 32.0-36.5 Below low lin l Mean Corpuscular HGB Conc [facility] ([facility]) platelet count, automated 242 10 150-450 Platelet C ount, Automated [facility] ([facility]) neutrophils % 54.8 % 36.0-66.0 Neutrophils % [facility] ( [facility]) lymph % 31.9 % 24.0-44.0 Lymph % [facility] ([facility]) mono % 9.3 % 2.0-8.0 Above high normal Gregory % [facility] ([facility]) eos % 2.8 % 0.0-3.0 Eos % J[facility] ([facility]) baso % 0.7 % 0.0-1.0 Baso % [facility] ([facility]) immature granulocyte % 0.5 % 0-3.0 Immature Gran ulocyte % J[facility] ([facility]) nucleated red blood cell % 0.0 % 0-0 Nucleated Red Blood Cell % [facility] ([facility]) neutrophils # 3.3 10 1.5-8.5 Neutrophils # JOHANA ( [facility]) lymph # 1.9 10 1.5-5.0 Lymph # [facility] ([facility]) mono # 0.6 10 0.0-0.8 Gregory # [facility] ([facility]) eos # 0.2 10 0.0-0.5 Eos # [facility] ([facility]) baso # 0.0 10 0.0-0.2 Baso # [facility] ([facility]) ID Date Data Source [id number] 04/16/2021 02:13:00 PM EDT [place] ([facility]) Name Value Range Interpretation Code Description Data Larissa rce(s) Supporting Document(s) cardiolipin IgA antibody <9 0-11 Cardiolipin IgA Antibody [facility] ([facility]) cardiolipin IgM antibody <9 0-12 Cardiolipin IgM Antibody [facility] ([facility]) cardiolipin IgG antibody <9 0-14 Cardiolipin IgG Antibody [facility] ([facility]) ID Date Data Source [id number] 04/16/2021 02:13:00 PM EDT [place] ([facility]) Name Value Range Interpretation Code Description Data Larissa rce(s) Supporting Document(s) factor V leiden for medinet . Factor v Leiden for Medinet [facility] ([facility]) ID Date Data Source [id number] 04/16/2021 02:13:00 PM EDT [facility]) Name Value Range Interpretation Code Description Data Larissa rce(s) Supporting Document(s) factor II prothrombin gene an . Factor II Prothrombin Gene an [place] ([facility]) ID Date Data Source [id number] 04/16/2021 02:13:00 PM EDT [place] ([facility]) Name Value Range Interpretation Code Description Data Larissa rce(s) Supporting Document(s) protein S functional activity 109 % 63-140 Protei n S Functional Activity [facility]) ID Date Data Source [id number] 04/16/2021 02:13:00 PM EDT [facility]) Name Value Range Interpretation Code Description Data Larissa rce(s) Supporting Document(s) protein C functional activity 112 % 73-180 Prote in C Functional Activity [place] ([facility]) ID Date Data Source [id number] 04/16/2021 02:13:00 PM EDT [facility]) Name Value Range Interpretation Code Description Data Larissa rce(s) Supporting Document(s) anti thrombin 3 antigen immuno 87 % 72-124 Anti Thrombin 3 Antigen Immuno [facility] ([facility]) anti thrombin 3 funct activity 107 % 75-135 Anti Thrombin 3 Funct Activity [place] ([facility]) ID Date Data Source [id number] 04/16/2021 02:13:00 PM EDT [facility]) Name Value Range Interpretation Code Description Data Larissa rce(s) Supporting Document(s) beta-2 glycoprotein I cy IgG <9 0-20 Beta-2 Glycoprotein I Cy IgG [place] ([facility]) beta-2 glycoprotein I cy IgM <9 0-32 Beta-2 Glycoprotein I Cy IgM [facility] ([facility]) beta-2 glycoprotein I cy IgA <9 0-25 Beta-2 Glycoprotein I Cy IgA [facility] ([facility]) ID Date Data Source [id number] 04/16/2021 02:13:00 PM EDT [facility] ([facility]) Name Value Range Interpretation Code Description Data Larissa rce(s) Supporting Document(s) PTT lupus type anticoag screen 0-1.2 PTT L upus Type Anticoag Screen [facility] ([facility]) ID Date Data Source [id number] 04/16/2021 02:13:00 [facility] Name Value Range Interpretation Code Description Data Larissa rce(s) Supporting Document(s) ferritin 45 NG/mL 8-252 Ferritin [facility] ([facility]) ID Date Data Source [id number] 04/16/2021 02:13:00 PM [facility] Name Value Range Interpretation Code Description Data Larissa rce(s) Supporting Document(s) folate 6.9 NG/mL >5.4 Folate [facility] ([facility]) ID Date Data Source [id number] 04/16/2021 02:13:00 PM [facility]T [facility] Name Value Range Interpretation Code Description Data Larissa rce(s) Supporting Document(s) vitamin B12 level 245 pg/mL 247-911 Below low normal Vitamin B12 Level [facility] ([facility]) ID Date Data Source [id number] 04/16/2021 02:13:00 PM [facility]T [facility] Name Value Range Interpretation Code Description Data Larissa rce(s) Supporting Document(s) iron (fe) 85 ug/dL 50-170 Iron (Fe) [facility] ([facility]) total iron binding capacity 308 ug/dL 250-450 Total Ir on Binding Capacity [place] ([facility]) percent saturation 27.6 % 13.2-45.0 Percent Saturatio n [place] ([facility]) ID Date Data Source [id number] 04/16/2021 02:13:00 PM EDT [place] ([facility]) Name Value Range Interpretation Code Description Data Larissa rce(s) Supporting Document(s) glucose, fasting 86 mg/dL 70-100 Glucose, Fasting AT [facility]) blood urea nitrogen 13 mg/dL 7-18 Blood Urea Nitro gen [place] ([facility]) creatinine for GFR 0.79 mg/dL 0.55-1.30 Creatinine for GF R [place] ([facility]) glomerular filtration rate > 60.0 >58 Glomerula r Filtration Rate [place] ([facility]) sodium level 142 mEq/L 136-145 Sodium Level [place] ([facility]) potassium serum 3.7 mEq/L 3.5-5.1 [facility] chloride level 110 mEq/L 98-107 Above high normal Chloride Level [place] ([facility]) carbon dioxide level 28 mEq/L 21-32 Carbon Dioxide Level [place] ([facility]) calcium level 8.3 mg/dL 8.5-10.1 Below low normal Calcium Level AT [facility]) anion gap 4 mEq/L 8-16 Below low normal Anion Gap [place] ( [facility]) ALT/SGPT 21 U/L 12-78 ALT/SGPT [facility] ([facility]) AST/SGOT 15 U/L 7-37 AST/SGOT [place] ([facility]) alkaline phosphatase 59 U/L 45-117 Alkaline Phosph atase [place] ([facility]) bilirubin,total 0.4 mg/dL 0.2-1.0 Bilirubin,total AT[facility]) total protein 6.4 gm/dL 6.4-8.2 Total Protein [place] ( [facility]) albumin 3.6 gm/dL 3.2-5.2 Albumin [facility] ([facility]) albumin/globulin ratio 1.2-2.2 Albumin/globu lilian Ratio [facility] ([facility]) ID Date Data Source [id number] 04/16/2021 02:13:00 PM EDT [facility] ([facility]) Name Value Range Interpretation Code Description Data Larissa rce(s) Supporting Document(s) white blood count 6.0 10 4.0-10.0 White Blood Count [facility] ([facility]) red blood count 4.24 10 4.00-5.40 Red Blood Count [facility] ([facility]) hemoglobin 12.0 g/dL 12.0-15.5 Hemoglobin [facility] ([facility]) mean corpuscular volume 91.0 fL 80.0-96.0 Mean Corpusc ular Volume [facility] ([facility]) hematocrit 38.6 % 36.0-47.0 Hematocrit [facility] ([facility]) mean corpuscular hemoglobin 28.3 pg 27.0-33.0 Mean Cor puscular Hemoglobin [facility] ([facility]) red cell distribution width 14.6 % 11.5-14.5 Above high no rmal Red Cell Distribution Width [facility] ([facility]) mean corpuscular HGB conc 31.1 g/dL 32.0-36.5 Below low lin l Mean Corpuscular HGB Conc [facility] ([facility]) platelet count, automated 242 10 150-450 Platelet C ount, Automated [facility] ([facility]) neutrophils % 54.8 % 36.0-66.0 Neutrophils % [facility] ( [facility]) lymph % 31.9 % 24.0-44.0 Lymph % [facility] ([facility]) mono % 9.3 % 2.0-8.0 Above high normal Gregory % [facility] ([facility]) eos % 2.8 % 0.0-3.0 Eos % [facility] ([facility]) baso % 0.7 % 0.0-1.0 Baso % [facility] ([facility]) nucleated red blood cell % 0.0 % 0-0 Nucleated Red Blood Cell % [facility] ([facility]) immature granulocyte % 0.5 % 0-3.0 Immature Gran ulocyte % [facility] ([facility]) neutrophils # 3.3 10 1.5-8.5 Neutrophils # [facility] ( [facility]) lymph # 1.9 10 1.5-5.0 Lymph # [facility] ([facility]) mono # 0.6 10 0.0-0.8 Gregory # [facility] ([facility]) baso # 0.0 10 0.0-0.2 Baso # [facility] ([facility]) eos # 0.2 10 0.0-0.5 Eos # [facility] ([facility]) ID Date Data Source [id number] 04/16/2021 02:13:00 PM EDT [place] ([facility]) Name Value Range Interpretation Code Description Data Larissa rce(s) Supporting Document(s) cardiolipin IgA antibody <9 0-11 Cardiolipin IgA Antibody [facility] ([facility]) cardiolipin IgG antibody <9 0-14 Cardiolipin IgG Antibody [place] ([facility]) cardiolipin IgM antibody <9 0-12 Cardiolipin IgM Antibody [place] ([facility]) ID Date Data Source [id number] 04/16/2021 02:13:00 PM EDT [place] ([facility]) Name Value Range Interpretation Code Description Data Larissa rce(s) Supporting Document(s) factor V [facility] . Factor v Leiden for Medinet [facility]) ID Date Data Source [id number] 04/16/2021 02:13:00 PM EDT [facility]) Name Value Range Interpretation Code Description Data Larissa rce(s) Supporting Document(s) factor II prothrombin gene an . Factor II Prothrombin Gene an [place] ([facility]) ID Date Data Source [id number] 04/16/2021 02:13:00 PM EDT [place] ([facility]) Name Value Range Interpretation Code Description Data Larissa rce(s) Supporting Document(s) protein S functional activity 109 % 63-140 Protei n S Functional Activity [place] ([facility]) ID Date Data Source [id number] 04/16/2021 02:13:00 PM EDT [place] ([facility]) Name Value Range Interpretation Code Description Data Larissa rce(s) Supporting Document(s) protein C functional activity 112 % 73-180 Prote in C Functional Activity [place] ([facility]) ID Date Data Source [id number] 04/16/2021 02:13:00 PM EDT [place] ([facility]) Name Value Range Interpretation Code Description Data Larissa rce(s) Supporting Document(s) anti thrombin 3 funct activity 107 % 75-135 Anti Thrombin 3 Funct Activity [place] ([facility]) anti thrombin 3 antigen immuno 87 % 72-124 Anti Thrombin 3 Antigen Immuno [place] ([facility]) ID Date Data Source [id number] 04/16/2021 02:13:00 PM EDT [place] ([facility]) Name Value Range Interpretation Code Description Data Larissa rce(s) Supporting Document(s) beta-2 glycoprotein I cy IgG <9 0-20 Beta-2 Glycoprotein I Cy IgG [facility] ([facility]) beta-2 glycoprotein I cy IgA <9 0-25 Beta-2 Glycoprotein I Cy IgA [facility] ([facility]) beta-2 glycoprotein I cy IgM <9 0-32 Beta-2 Glycoprotein I Cy IgM [facility]) ID Date Data Source [id number] 04/16/2021 02:13:00 PM EDT JOH[facility] ([facility]) Name Value Range Interpretation Code Description Data Larissa rce(s) Supporting Document(s) PTT lupus type anticoag screen 0-1.2 PTT L upus Type Anticoag Screen [facility] ([facility]) ID Date Data Source [id number] 04/16/2021 02:13:00 PM EDT [facility] ([facility]) Name Value Range Interpretation Code Description Data Larissa rce(s) Supporting Document(s) ferritin 45 NG/mL 8-252 Ferritin [facility] ([facility]) ID Date Data Source [id number] 04/16/2021 02:13:00 PM EDT [facility] ([facility]) Name Value Range Interpretation Code Description Data Larissa rce(s) Supporting Document(s) folate 6.9 NG/mL >5.4 Folate [facility] ([facility]) ID Date Data Source [id number] 04/16/2021 02:13:00 PM EDT [facility] ([facility]) Name Value Range Interpretation Code Description Data Larissa rce(s) Supporting Document(s) vitamin B12 level 245 pg/mL 247-911 Below low normal Vitamin B12 Level [facility] ([facility]) ID Date Data Source [id number] 04/16/2021 02:13:00 [facility] Name Value Range Interpretation Code Description Data Larissa rce(s) Supporting Document(s) iron (fe) 85 ug/dL 50-170 Iron (Fe) [facility] ([facility]) total iron binding capacity 308 ug/dL 250-450 Total Ir on Binding Capacity [facility] ([facility]) percent saturation 27.6 % 13.2-45.0 Percent Saturatio n [place] ([facility]) ID Date Data Source [id number] 04/16/2021 02:13:00 PM EDT [place] ([facility]) Name Value Range Interpretation Code Description Data Larissa rce(s) Supporting Document(s) glucose, fasting 86 mg/dL 70-100 Glucose, Fasting AT [facility]) creatinine for GFR 0.79 mg/dL 0.55-1.30 Creatinine for GF R [facility] ([facility]) blood urea nitrogen 13 mg/dL 7-18 Blood Urea Nitro gen [facility] ([facility]) sodium level 142 mEq/L 136-145 Sodium Level JOHANA (No [facility]) potassium serum 3.7 mEq/L 3.5-5.1 Potassium Serum [facility] ([facility]) glomerular filtration rate > 60.0 >58 Glomerula r Filtration Rate [facility] ([facility]) carbon dioxide level 28 mEq/L 21-32 Carbon Dioxide Level [place] ([facility]) chloride level 110 mEq/L 98-107 Above high normal Chloride Level [facility] ([facility]) anion gap 4 mEq/L 8-16 Below low normal Anion Gap [place] ( [facility]) calcium level 8.3 mg/dL 8.5-10.1 Below low normal Calcium Level AT [facility] ([facility]) AST/SGOT 15 U/L 7-37 AST/SGOT [facility] ([facility]) alkaline phosphatase 59 U/L 45-117 Alkaline Phosph atase [facility] ([facility]) bilirubin,total 0.4 mg/dL 0.2-1.0 Bilirubin,total [facility] ([facility]) ALT/SGPT 21 U/L 12-78 ALT/SGPT [facility] ([facility]) albumin 3.6 gm/dL 3.2-5.2 Albumin [facility] ([facility]) total protein 6.4 gm/dL 6.4-8.2 Total Protein [facility] ( [facility]) albumin/globulin ratio 1.2-2.2 Albumin/globu lilian Ratio [facility] ([facility]) ID Date Data Source [id number] 04/16/2021 02:13:00 PM EDT [place] ([facility]) Name Value Range Interpretation Code Description Data Larissa rce(s) Supporting Document(s) white blood count 6.0 10 4.0-10.0 White Blood Count [facility] ([facility]) red blood count 4.24 10 4.00-5.40 Red Blood Count [facility] ([facility]) hemoglobin 12.0 g/dL 12.0-15.5 Hemoglobin [facility] ([facility]) mean corpuscular volume 91.0 fL 80.0-96.0 Mean Corpusc ular Volume [facility] ([facility]) hematocrit 38.6 % 36.0-47.0 Hematocrit [facility] ([facility]) mean corpuscular hemoglobin 28.3 pg 27.0-33.0 Mean Cor puscular Hemoglobin [facility] ([facility]) red cell distribution width 14.6 % 11.5-14.5 Above high no rmal Red Cell Distribution Width [facility] ([facility]) platelet count, automated 242 10 150-450 Platelet C ount, Automated [facility] ([facility]) mean corpuscular HGB conc 31.1 g/dL 32.0-36.5 Below low lin l Mean Corpuscular HGB Conc [facility] ([facility]) neutrophils % 54.8 % 36.0-66.0 Neutrophils % [facility] ( [facility]) lymph % 31.9 % 24.0-44.0 Lymph % [facility] ([facility]) mono % 9.3 % 2.0-8.0 Above high normal Gregory % [facility] ([facility]) baso % 0.7 % 0.0-1.0 Baso % [facility] ([facility]) eos % 2.8 % 0.0-3.0 Eos % [facility] ([facility]) immature granulocyte % 0.5 % 0-3.0 Immature Gran ulocyte % [facility] ([facility]) nucleated red blood cell % 0.0 % 0-0 Nucleated Red Blood Cell % [facility] ([facility]) neutrophils # 3.3 10 1.5-8.5 Neutrophils # [facility] ( [facility]) lymph # 1.9 10 1.5-5.0 Lymph # [facility] ([facility]) mono # 0.6 10 0.0-0.8 Gregory # [facility] ([facility]) eos # 0.2 10 0.0-0.5 Eos # [facility] ([facility]) baso # 0.0 10 0.0-0.2 Baso # [facility] ([facility]) ID Date Data Source [id number] 04/16/2021 02:13:00 PM EDT [facility] ([facility]) Name Value Range Interpretation Code Description Data Larissa rce(s) Supporting Document(s) cardiolipin IgA antibody <9 0-11 Cardiolipin IgA Antibody [facility] ([facility]) cardiolipin IgG antibody <9 0-14 Cardiolipin IgG Antibody [place] ([facility]) cardiolipin IgM antibody <9 0-12 Cardiolipin IgM Antibody [place] ([facility]) ID Date Data Source [id number] 04/16/2021 02:13:00 PM EDT [place] ([facility]) Name Value Range Interpretation Code Description Data Larissa rce(s) Supporting Document(s) factor V leiden for medinet . Factor v Leiden for Medinet [facility] ([facility]) ID Date Data Source [id number] 04/16/2021 02:13:00 PM EDT [place] ([facility]) Name Value Range Interpretation Code Description Data Larissa rce(s) Supporting Document(s) factor II prothrombin gene an . Factor II Prothrombin Gene an [facility] ([facility]) ID Date Data Source [id number] 04/16/2021 02:13:00 PM EDT [facility]) Name Value Range Interpretation Code Description Data Larissa rce(s) Supporting Document(s) protein S functional activity 109 % 63-140 Protei n S Functional Activity [place] ([facility]) ID Date Data Source [id number] 04/16/2021 02:13:00 PM EDT [facility] ([facility]) Name Value Range Interpretation Code Description Data Larissa rce(s) Supporting Document(s) protein C functional activity 112 % 73-180 Prote in C Functional Activity [facility] ([facility]) ID Date Data Source [id number] 04/16/2021 02:13:00 PM EDT [facility] ([facility]) Name Value Range Interpretation Code Description Data Larissa rce(s) Supporting Document(s) anti thrombin 3 antigen immuno 87 % 72-124 Anti Thrombin 3 Antigen Immuno [facility] ([facility]) anti thrombin 3 funct activity 107 % 75-135 Anti Thrombin 3 Funct Activity [place] ([facility]) ID Date Data Source [id number] 04/16/2021 02:13:00 PM EDT [facility] ([facility]) Name Value Range Interpretation Code Description Data Larissa rce(s) Supporting Document(s) beta-2 glycoprotein I cy IgA <9 0-25 Beta-2 Glycoprotein I Cy IgA [facility] ([facility]) beta-2 glycoprotein I cy IgG <9 0-20 Beta-2 Glycoprotein I Cy IgG [facility] ([facility]) beta-2 glycoprotein I cy IgM <9 0-32 Beta-2 Glycoprotein I Cy IgM [facility] ([facility]) ID Date Data Source [id number] 04/16/2021 02:13:00 PM EDT [facility] ([facility]) Name Value Range Interpretation Code Description Data Larissa rce(s) Supporting Document(s) PTT lupus type anticoag screen 0-1.2 PTT L upus Type Anticoag Screen [place] ([facility]) ID Date Data Source [id number] 04/16/2021 02:13:00 PM EDT [facility] ([facility]) Name Value Range Interpretation Code Description Data Larissa rce(s) Supporting Document(s) ferritin 45 NG/mL 8-252 Ferritin [facility] ([facility]) ID Date Data Source [id number] 04/16/2021 02:13:00 PM EDT [facility] ([facility]) Name Value Range Interpretation Code Description Data Larissa rce(s) Supporting Document(s) folate 6.9 NG/mL >5.4 Folate [facility] ([facility]) ID Date Data Source [id number] 04/16/2021 02:13:00 PM EDT [facility] ([facility]) Name Value Range Interpretation Code Description Data Larissa rce(s) Supporting Document(s) vitamin B12 level 245 pg/mL 247-911 Below low normal Vitamin B12 Level [place] ([facility]) ID Date Data Source [id number] 04/16/2021 02:13:00 PM EDT [facility] ([facility]) Name Value Range Interpretation Code Description Data Larissa rce(s) Supporting Document(s) total iron binding capacity 308 ug/dL 250-450 Total Ir on Binding Capacity [facility] ([facility]) iron (fe) 85 ug/dL 50-170 Iron (Fe) [facility] ([facility]) percent saturation 27.6 % 13.2-45.0 Percent Saturatio n [facility] ([facility]) ID Date Data Source [id number] 04/16/2021 02:13:00 PM EDT [facility] ([facility]) Name Value Range Interpretation Code Description Data Larissa rce(s) Supporting Document(s) blood urea nitrogen 13 mg/dL 7-18 Blood Urea Nitro gen [facility] ([facility]) glucose, fasting 86 mg/dL 70-100 Glucose, Fasting AT [facility] ([facility]) sodium level 142 mEq/L 136-145 Sodium Level [facility] (No [facility]) creatinine for GFR 0.79 mg/dL 0.55-1.30 Creatinine for GF R [facility] ([facility]) glomerular filtration rate > 60.0 >58 Glomerula r Filtration Rate [facility] ([facility]) potassium serum 3.7 mEq/L 3.5-5.1 Potassium Serum [facility] ([facility]) chloride level 110 mEq/L 98-107 Above high normal Chloride Level [facility] ([facility]) carbon dioxide level 28 mEq/L 21-32 Carbon Dioxide Level [facility] ([facility]) anion gap 4 mEq/L 8-16 Below low normal Anion Gap [facility] ( [facility]) calcium level 8.3 mg/dL 8.5-10.1 Below low normal Calcium Level AT [facility]) ALT/SGPT 21 U/L 12-78 ALT/SGPT [facility] ([facility]) AST/SGOT 15 U/L 7-37 AST/SGOT [facility] ([facility]) alkaline phosphatase 59 U/L 45-117 Alkaline Phosph atase [facility] ([facility]) bilirubin,total 0.4 mg/dL 0.2-1.0 Bilirubin,total [facility] ([facility]) total protein 6.4 gm/dL 6.4-8.2 Total Protein [facility] ( [facility]) albumin/globulin ratio 1.2-2.2 Albumin/globu lilian Ratio [facility] ([facility]) albumin 3.6 gm/dL 3.2-5.2 Albumin [facility] ([facility]) ID Date Data Source [id number] 04/16/2021 02:13:00 PM EDT [facility] ([facility]) Name Value Range Interpretation Code Description Data Larissa rce(s) Supporting Document(s) white blood count 6.0 10 4.0-10.0 White Blood Count [facility] ([facility]) red blood count 4.24 10 4.00-5.40 Red Blood Count [facility] ([facility]) hemoglobin 12.0 g/dL 12.0-15.5 Hemoglobin [facility] ([facility]) hematocrit 38.6 % 36.0-47.0 Hematocrit [facility] ([facility]) mean corpuscular volume 91.0 fL 80.0-96.0 Mean Corpusc ular Volume [facility] ([facility]) mean corpuscular hemoglobin 28.3 pg 27.0-33.0 Mean Cor puscular Hemoglobin [facility] ([facility]) mean corpuscular HGB conc 31.1 g/dL 32.0-36.5 Below low lin l Mean Corpuscular HGB Conc [facility] ([facility]) platelet count, automated 242 10 150-450 Platelet C ount, Automated [facility] ([facility]) red cell distribution width 14.6 % 11.5-14.5 Above high no rmal Red Cell Distribution Width [facility] ([facility]) neutrophils % 54.8 % 36.0-66.0 Neutrophils % [facility] ( [facility]) lymph % 31.9 % 24.0-44.0 Lymph % [facility] ([facility]) eos % 2.8 % 0.0-3.0 Eos % [facility] ([facility]) mono % 9.3 % 2.0-8.0 Above high normal Gregory % [facility] ([facility]) baso % 0.7 % 0.0-1.0 Baso % [facility] ([facility]) immature granulocyte % 0.5 % 0-3.0 Immature Gran ulocyte % [facility] ([facility]) nucleated red blood cell % 0.0 % 0-0 Nucleated Red Blood Cell % [facility] ([facility]) lymph # 1.9 10 1.5-5.0 Lymph # [facility] ([facility]) neutrophils # 3.3 10 1.5-8.5 Neutrophils # [facility] ( [facility]) mono # 0.6 10 0.0-0.8 Gregory # [facility] ([facility]) baso # 0.0 10 0.0-0.2 Baso # [facility] ([facility]) eos # 0.2 10 0.0-0.5 Eos # [facility] ([facility]) ID Date Data Source [id number] 04/16/2021 02:13:00 PM EDT [facility]) Name Value Range Interpretation Code Description Data Larissa rce(s) Supporting Document(s) cardiolipin IgA antibody <9 0-11 Cardiolipin IgA Antibody [facility] ([facility]) cardiolipin IgG antibody <9 0-14 Cardiolipin IgG Antibody [facility] ([facility]) cardiolipin IgM antibody <9 0-12 Cardiolipin IgM Antibody [facility]) ID Date Data Source [id number] 04/16/2021 02:13:00 PM EDT [facility]) Name Value Range Interpretation Code Description Data Larissa rce(s) Supporting Document(s) factor V leiden for medinet . Factor v Leiden for Medinet [facility]) ID Date Data Source [id number] 04/16/2021 02:13:00 PM EDT [facility]) Name Value Range Interpretation Code Description Data Larissa rce(s) Supporting Document(s) factor II prothrombin gene an . Factor II Prothrombin Gene an [facility]) ID Date Data Source [id number] 04/16/2021 02:13:00 PM EDT [facility]) Name Value Range Interpretation Code Description Data Larissa rce(s) Supporting Document(s) protein S functional activity 109 % 63-140 Protei n S Functional Activity [facility]) ID Date Data Source [id number] 04/16/2021 02:13:00 PM EDT [facility]) Name Value Range Interpretation Code Description Data Larissa rce(s) Supporting Document(s) protein C functional activity 112 % 73-180 [facility] Date Data Source [id number] 04/16/2021 02:13:00 PM EDT [place] ([facility]) Name Value Range Interpretation Code Description Data Larissa rce(s) Supporting Document(s) anti thrombin 3 antigen immuno 87 % 72-124 Anti Thrombin 3 Antigen Immuno [facility] ([facility]) anti thrombin 3 funct activity 107 % 75-135 Anti Thrombin 3 Funct Activity [place] ([facility]) ID Date Data Source [id number] 04/16/2021 02:13:00 PM EDT [facility] ([facility]) Name Value Range Interpretation Code Description Data Larissa rce(s) Supporting Document(s) beta-2 glycoprotein I cy IgG <9 0-20 Beta-2 Glycoprotein I Cy IgG [facility] ([facility]) beta-2 glycoprotein I cy IgA <9 0-25 Beta-2 Glycoprotein I Cy IgA [place] ([facility]) beta-2 glycoprotein I cy IgM <9 0-32 Beta-2 Glycoprotein I Cy IgM [place] ([facility]) ID Date Data Source [id number] 04/16/2021 02:13:00 PM EDT [facility]) Name Value Range Interpretation Code Description Data Larissa rce(s) Supporting Document(s) PTT lupus type anticoag screen 0-1.2 PTT L upus Type Anticoag Screen [facility] ([facility]) ID Date Data Source [id number] 04/16/2021 02:13:00 PM EDT [place] ([facility]) Name Value Range Interpretation Code Description Data Larissa rce(s) Supporting Document(s) ferritin 45 NG/mL 8-252 Ferritin [facility] ([facility]) ID Date Data Source [id number] 04/16/2021 02:13:00 PM EDT [facility]) Name Value Range Interpretation Code Description Data Larissa rce(s) Supporting Document(s) folate 6.9 NG/mL >5.4 Folate [facility] ([facility]) ID Date Data Source [id number] 04/16/2021 02:13:00 PM EDT [facility] ([facility]) Name Value Range Interpretation Code Description Data Larissa rce(s) Supporting Document(s) vitamin B12 level 245 pg/mL 247-911 Below low normal Vitamin B12 Level [place] ([facility]) ID Date Data Source [id number] 04/16/2021 02:13:00 PM EDT [facility]) Name Value Range Interpretation Code Description Data Larissa rce(s) Supporting Document(s) iron (fe) 85 ug/dL 50-170 Iron (Fe) [facility] ([facility]) total iron binding capacity 308 ug/dL 250-450 Total Ir on Binding Capacity [facility] ([facility]) percent saturation 27.6 % 13.2-45.0 Percent Saturatio n [place] ([facility]) ID Date Data Source [id number] 04/16/2021 02:13:00 PM EDT [facility]) Name Value Range Interpretation Code Description Data Larissa rce(s) Supporting Document(s) blood urea nitrogen 13 mg/dL 7-18 Blood Urea Nitro gen [facility] ([facility]) glucose, fasting 86 mg/dL 70-100 Glucose, Fasting AT [facility] ([facility]) glomerular filtration rate > 60.0 >58 Glomerula r Filtration Rate [facility] ([facility]) creatinine for GFR 0.79 mg/dL 0.55-1.30 Creatinine for GF R [facility] ([facility]) potassium serum 3.7 mEq/L 3.5-5.1 Potassium Serum [facility] ([facility]) sodium level 142 mEq/L 136-145 Sodium Level [facility] (No [facility]) anion gap 4 mEq/L 8-16 Below low normal Anion Gap [facility] ( [facility]) carbon dioxide level 28 mEq/L 21-32 Carbon Dioxide Level [facility] ([facility]) chloride level 110 mEq/L 98-107 Above high normal Chloride Level [facility] ([facility]) AST/SGOT 15 U/L 7-37 AST/SGOT [facility] ([facility]) calcium level 8.3 mg/dL 8.5-10.1 Below low normal Calcium Level [facility] ([facility]) alkaline phosphatase 59 U/L 45-117 Alkaline Phosph atase [facility] ([facility]) ALT/SGPT 21 U/L 12-78 ALT/SGPT [facility] ([facility]) bilirubin,total 0.4 mg/dL 0.2-1.0 Bilirubin,total [facility] ([facility]) albumin 3.6 gm/dL 3.2-5.2 Albumin [facility] ([facility]) total protein 6.4 gm/dL 6.4-8.2 Total Protein [facility] ( [facility]) albumin/globulin ratio 1.2-2.2 Albumin/globu lilian Ratio [facility] ([facility]) ID Date Data Source [id number] 04/16/2021 02:13:00 PM EDT [facility] ([facility]) Name Value Range Interpretation Code Description Data Larissa rce(s) Supporting Document(s) white blood count 6.0 10 4.0-10.0 White Blood Count [facility] ([facility]) red blood count 4.24 10 4.00-5.40 Red Blood Count [facility] ([facility]) hemoglobin 12.0 g/dL 12.0-15.5 Hemoglobin [facility] ([facility]) hematocrit 38.6 % 36.0-47.0 Hematocrit [facility] ([facility]) mean corpuscular hemoglobin 28.3 pg 27.0-33.0 Mean Cor puscular Hemoglobin [facility] ([facility]) mean corpuscular volume 91.0 fL 80.0-96.0 Mean Corpusc ular Volume [facility] ([facility]) red cell distribution width 14.6 % 11.5-14.5 Above high no rmal Red Cell Distribution Width [facility] ([facility]) mean corpuscular HGB conc 31.1 g/dL 32.0-36.5 Below low lin l Mean Corpuscular HGB Conc [facility] ([facility]) lymph % 31.9 % 24.0-44.0 Lymph % [facility] ([facility]) platelet count, automated 242 10 150-450 Platelet C ount, Automated [facility] ([facility]) neutrophils % 54.8 % 36.0-66.0 Neutrophils % [facility] ( [facility]) eos % 2.8 % 0.0-3.0 Eos % [facility] ([facility]) mono % 9.3 % 2.0-8.0 Above high normal Gregory % [facility] ([facility]) immature granulocyte % 0.5 % 0-3.0 Immature Gran ulocyte % [facility] ([facility]) baso % 0.7 % 0.0-1.0 Baso % [facility] ([facility]) nucleated red blood cell % 0.0 % 0-0 Nucleated Red Blood Cell % [facility] ([facility]) neutrophils # 3.3 10 1.5-8.5 Neutrophils # [facility] ( [facility]) lymph # 1.9 10 1.5-5.0 Lymph # [facility] ([facility]) mono # 0.6 10 0.0-0.8 Gregory # [facility] ([facility]) eos # 0.2 10 0.0-0.5 Eos # [facility] ([facility]) baso # 0.0 10 0.0-0.2 Baso # [facility] ([facility]) ID Date Data Source [id number] 03/22/2021 12:00:00 AM EDT [facility] ([facility]) Name Value Range Interpretation Code Description Data Larissa rce(s) Supporting Document(s) Cobalamin (Vitamin B12) [Mass/volume] in Serum or Plasma 206 pg/mL 200-1100 Vitamin B12 [facility] ([facility]) Folate [Mass/volume] in Serum or Plasma 7.1 NG/mL Folate, Serum [facility] ([facility]) ID Date Data Source [id number] 03/22/2021 12:00:00 AM EDT [facility] ([facility]) Name Value Range Interpretation Code Description Data Larissa rce(s) Supporting Document(s) Thyrotropin [Units/volume] in Serum or Plasma 6.92 mIU/L Above high normal Tsh [place] ([facility]) ID Date Data Source [id number] 03/22/2021 12:00:00 AM EDT [place] ([facility]) Name Value Range Interpretation Code Description Data Larissa rce(s) Supporting Document(s) Leukocytes [#/volume] in Blood by Automated count 6.4 thousand/uL 3 .8-10.8 White Blood Cell Count [facility] ([facility]) Hematocrit [Volume Fraction] of Blood by Automated count 35.6 % 35.0-45.0 Hematocrit [facility] ([facility]) Hemoglobin [Mass/volume] in Blood 12.1 g/dL 11.7-15.5 He moglobin [facility] ([facility]) Erythrocytes [#/volume] in Blood by Automated count 4.21 million/uL 3.80-5.10 Red Blood Cell Count [facility] ([facility]) Erythrocyte mean corpuscular volume [Entitic volume] by Auto mated count 84.6 fL 80.0-100.0 Mcv [facility] ([facility]) Erythrocyte distribution width [Ratio] by Automated count 14.5 % 11.0-15.0 Rdw [facility] ([facility]) Erythrocyte mean corpuscular hemoglobin concentration [Mass/volume] by Automated count 34.0 g/dL 32.0-36.0 Mchc [facility] ([facility]) Erythrocyte mean corpuscular hemoglobin [Entitic mass] by Automated count 28.7 pg 27.0-33.0 Mch [facility] ([facility]) Platelets [#/volume] in Blood by Automated count 289 thousand/uL 14 0-400 Platelet Count [facility] ([facility]) Platelet mean volume [Entitic volume] in Blood by [place] 11.0 f L 7.5-12.5 Mpv [facility] ([facility]) Lymphocytes [#/volume] in Blood by Automated count 1677 cells/uL 85 0-3900 Absolute Lymphocytes [facility] ([facility]) Neutrophils [#/volume] in Blood by Automated count 3859 cells/uL 15 00-7800 Absolute Neutrophils [facility] ([facility]) Neutrophils/100 leukocytes in Blood by Automated count 60.3 % 38-80 Neutrophils [facility] ([facility]) Monocytes [#/volume] in Blood by Automated count 640 cells/uL 200-9 50 Absolute Monocytes [facility] ([facility]) Basophils [#/volume] in Blood by Automated count 51 cells/uL 0-200 Absolute Basophils [facility] ([facility]) Eosinophils [#/volume] in Blood by Automated count 173 cells/uL 15- 500 Absolute Eosinophils [facility] ([facility]) Eosinophils/100 leukocytes in Blood by Automated count 2.7 % 0-8 Eosinophils [facility] ([facility]) Monocytes/100 leukocytes in Blood by Automated count 10.0 % 0-13 Monocytes [facility] ([facility]) Basophils/100 leukocytes in Blood by Automated count 0.8 % 0-2 Basophils [facility] ([facility]) Lymphocytes/100 leukocytes in Blood by Automated count 26.2 % 15-49 Lymphocytes [facility] ([facility]) ID Date Data Source [id number] 03/22/2021 12:00:00 AM EDT [facility] ([facility]) Name Value Range Interpretation Code Description Data Larissa rce(s) Supporting Document(s) Glucose [Mass/volume] in Serum or Plasma 94 mg/dL 65-99 Glucose [facility] ([facility]) Creatinine [Mass/volume] in Serum or Plasma 0.82 mg/dL 0.50-1.10 Creatinine [facility] ([facility]) Urea nitrogen [Mass/volume] in Serum or Plasma 15 mg/dL 7-25 Urea Nitrogen (BUN) [facility] ([facility]) Urea nitrogen/Creatinine [Mass Ratio] in Serum or Plasma not applic able 6-22 BUN/creatinine Ratio [facility] ([facility]) Glomerular filtration rate/1.73 sq M.pre dicted among non-blacks [Volume Rate/Area] in Serum, Plasma or Blood by Creatinine-based formula (CKD-EPI) 90 mL/min/1.73m2 > or = 60 eGFR Non-afr. [place] [facility] ([facility]) Glomerular filtration rate/1.73 sq M.pre dicted among blacks [Volume Rate/Area] in Serum, Plasma or Blood by Creatinine-based formula (CKD-EPI) 104 mL/min/1.73m2 > or = 60 eGFR [facility] (No [facility]) Potassium [Moles/volume] in Serum or Plasma 3.5 mmol/L 3.5-5.3 Potassium [place] ([facility]) Chloride [Moles/volume] in Serum or Plasma 106 mmol/L 98-110 Chloride [facility] ([facility]) Sodium [Moles/volume] in Serum or Plasma 140 mmol/L 135-146 [facility] Carbon dioxide, total [Moles/volume] in Serum or Plasma 23 mmol/L 20-32 Carbon Dioxide [facility] ([facility]) Calcium [Mass/volume] in Serum or Plasma 8.8 mg/dL 8.6-10.2 Calcium [place] ([facility]) Protein [Mass/volume] in Serum or Plasma 6.5 g/dL 6.1-8.1 Protein, [facility] Albumin [Mass/volume] in Serum or Plasma 4.1 g/dL 3.6-5.1 Albumin [place] ([facility]) Globulin [Mass/volume] in Serum by calculation 2.4 g/dL_(calc) 1.9- 3.7 Globulin [facility] ([facility]) Albumin/Globulin [Mass Ratio] in Serum or Plasma 1.7 (calc) 1.0-2 .5 Albumin/globulin Ratio [facility]) Aspartate aminotransferase [Enzymatic activity/volume] in Serum or Plasma 16 U/L 10-30 Ast [facility] Bilirubin.total [Mass/volume] in Serum or Plasma 0.5 mg/dL 0.2-1 .2 Bilirubin, Total [facility] ([facility]) Alanine aminotransferase [Enzymatic activity/volume] in Seru m or Plasma 13 U/L 6-29 Alt [facility] ([facility]) Alkaline phosphatase [Enzymatic activity/volume] in Serum or Plasma 63 U/L 31-125 Alkaline Phosphatase [facility] ([facility]) ID Date Data Source [id number] 03/22/2021 12:00:00 AM EDT [facility] ([facility]) Name Value Range Interpretation Code Description Data Larissa rce(s) Supporting Document(s) Cholesterol [Mass/volume] in Serum or Plasma 220 mg/dL <200 Above high normal Cholesterol, Total JOHANA ([facility]) Cholesterol in HDL [Mass/volume] in Serum or Plasma 43 mg/dL > or = 50 Below low normal HDL Cholesterol JOHANA ([facility]) Cholesterol in LDL [Mass/volume] in Serum or Plasma by calculation 147 mg/dL_(calc) Above high normal LDL-cholesterol JOHANA ([facility]) Triglyceride [Mass/volume] in Serum or Plasma 167 mg/dL <150 Above high normal Triglycerides JOHANA ([facility]) Cholesterol.total/Cholesterol in HDL [Mass Ratio] in Serum o r Plasma 5.1 (calc) <5.0 Above high normal Chol/hdlc Ratio JOHANA ([facility]) Cholesterol non HDL [Mass/volume] in Serum or Plasma 177 mg/dL_( calc) <130 Above high normal Non HDL Cholesterol JOHANA ([facility]) ID Date Data Source [id number] 03/22/2021 12:00:00 AM EDT JOHANA ([facility]) Name Value Range Interpretation Code Description Data Larissa rce(s) Supporting Document(s) Iron binding capacity [Mass/volume] in Serum or Plasma 319 m cg/dL_(calc) 250-450 Iron Binding Capacity JOHANA ([facility]) Iron [Mass/volume] in Serum or Plasma 79 mcg/dL 40-190 Iron, Total JOHANA ([facility]) Iron saturation [Mass Fraction] in Serum or Plasma 25 %_(calc) 16- 45 % Saturation JOHANA ([facility]) Ferritin [Mass/volume] in Serum or Plasma 38 NG/mL 16-154 Ferritin JOHANA ([facility]) ID Date Data Source [id number] 03/22/2021 12:00:00 AM EDT JOHANA ([facility]) Name Value Range Interpretation Code Description Data Larissa rce(s) Supporting Document(s) Folate [Mass/volume] in Serum or Plasma 7.1 NG/mL Folate, Serum JOHANA ([facility]) Cobalamin (Vitamin B12) [Mass/volume] in Serum or Plasma 206 pg/mL 200-1100 Vitamin B12 JOHANA ([facility]) ID Date Data Source [id number] 03/22/2021 12:00:00 AM EDT JOHANA ([facility]) Name Value Range Interpretation Code Description Data Larissa rce(s) Supporting Document(s) Thyrotropin [Units/volume] in Serum or Plasma 6.92 mIU/L Above high normal Tsh JOHANA ([facility]) ID Date Data Source [id number] 03/22/2021 12:00:00 AM EDT JOHANA ([facility]) Name Value Range Interpretation Code Description Data Larissa rce(s) Supporting Document(s) Leukocytes [#/volume] in Blood by Automated count 6.4 thousand/uL 3 .8-10.8 White Blood Cell Count JOHANA ([facility]) Erythrocytes [#/volume] in Blood by Automated count 4.21 million/uL 3.80-5.10 Red Blood Cell Count JOHANA ([facility]) Hemoglobin [Mass/volume] in Blood 12.1 g/dL 11.7-15.5 He moglobin JOHANA ([facility]) Erythrocyte mean corpuscular hemoglobin [Entitic mass] by Automated count 28.7 pg 27.0-33.0 Mch JOHANA ([facility]) Hematocrit [Volume Fraction] of Blood by Automated count 35.6 % 35.0-45.0 Hematocrit JOHANA ([facility]) Erythrocyte mean corpuscular volume [Entitic volume] by Auto mated count 84.6 fL 80.0-100.0 Mcv JOHANA ([facility]) Erythrocyte mean corpuscular hemoglobin concentration [Mass/volume] by Automated count 34.0 g/dL 32.0-36.0 Mchc JOHANA ([facility]) Platelet mean volume [Entitic volume] in Blood by Fernandez-Nnamdi 11.0 f L 7.5-12.5 Mpv JOHANA ([facility]) Platelets [#/volume] in Blood by Automated count 289 thousand/uL 14 0-400 Platelet Count JOHANA ([facility]) Erythrocyte distribution width [Ratio] by Automated count 14.5 % 11.0-15.0 Rdw JOHANA ([facility]) Lymphocytes [#/volume] in Blood by Automated count 1677 cells/uL 85 0-3900 Absolute Lymphocytes JOHANA ([facility]) Neutrophils [#/volume] in Blood by Automated count 3859 cells/uL 15 00-7800 Absolute Neutrophils JOHANA ([facility]) Monocytes [#/volume] in Blood by Automated count 640 cells/uL 200-9 50 Absolute Monocytes JOHANA ([facility]) Neutrophils/100 leukocytes in Blood by Automated count 60.3 % 38-80 Neutrophils JOHANA ([facility]) Basophils [#/volume] in Blood by Automated count 51 cells/uL 0-200 Absolute Basophils JOHANA ([facility]) Eosinophils [#/volume] in Blood by Automated count 173 cells/uL 15- 500 Absolute Eosinophils JOHANA ([facility]) Lymphocytes/100 leukocytes in Blood by Automated count 26.2 % 15-49 Lymphocytes JOHANA ([facility]) Eosinophils/100 leukocytes in Blood by Automated count 2.7 % 0-8 Eosinophils JOHANA ([facility]) Monocytes/100 leukocytes in Blood by Automated count 10.0 % 0-13 Monocytes JOHANA ([facility]) Basophils/100 leukocytes in Blood by Automated count 0.8 % 0-2 Basophils JOHANA ([facility]) ID Date Data Source [id number] 03/22/2021 12:00:00 AM EDT [place] ([facility]) Name Value Range Interpretation Code Description Data Larissa rce(s) Supporting Document(s) Glucose [Mass/volume] in Serum or Plasma 94 mg/dL 65-99 Glucose JOHANA ([facility]) Glomerular filtration rate/1.73 sq M.pre dicted among non-blacks [Volume Rate/Area] in Serum, Plasma or Blood by Creatinine-based formula (CKD-EPI) 90 mL/min/1.73m2 > or = 60 eGFR Non-afr. Azerbaijani JOHANA ([facility]) Creatinine [Mass/volume] in Serum or Plasma 0.82 mg/dL 0.50-1.10 Creatinine JOHANA ([facility]) Urea nitrogen [Mass/volume] in Serum or Plasma 15 mg/dL 7-25 Urea Nitrogen (BUN) JOHANA ([facility]) Urea nitrogen/Creatinine [Mass Ratio] in Serum or Plasma not applic able 6-22 BUN/creatinine Ratio [place] ([facility]) Glomerular filtration rate/1.73 sq M.pre dicted among blacks [Volume Rate/Area] in Serum, Plasma or Blood by Creatinine-based formula (CKD-EPI) 104 mL/min/1.73m2 > or = 60 eGFR JOHANA (No [facility]) Sodium [Moles/volume] in Serum or Plasma 140 mmol/L 135-146 Sodium JOHANA ([facility]) Potassium [Moles/volume] in Serum or Plasma 3.5 mmol/L 3.5-5.3 Potassium JOHANA ([facility]) Chloride [Moles/volume] in Serum or Plasma 106 mmol/L 98-110 Chloride JOHANA ([facility]) Calcium [Mass/volume] in Serum or Plasma 8.8 mg/dL 8.6-10.2 Calcium JOHANA ([facility]) Carbon dioxide, total [Moles/volume] in Serum or Plasma 23 mmol/L 20-32 Carbon Dioxide JOHANA ([facility]) Protein [Mass/volume] in Serum or Plasma 6.5 g/dL 6.1-8.1 Protein, Total JOHANA ([facility]) Albumin/Globulin [Mass Ratio] in Serum or Plasma 1.7 (calc) 1.0-2 .5 Albumin/globulin Ratio JOHANA ([facility]) Globulin [Mass/volume] in Serum by calculation 2.4 g/dL_(calc) 1.9- 3.7 Globulin JOHANA ([facility]) Albumin [Mass/volume] in Serum or Plasma 4.1 g/dL 3.6-5.1 Albumin JOHANA ([facility]) Bilirubin.total [Mass/volume] in Serum or Plasma 0.5 mg/dL 0.2-1 .2 Bilirubin, Total JOHANA ([facility]) Aspartate aminotransferase [Enzymatic activity/volume] in Serum or Plasma 16 U/L 10-30 Ast JOHANA ([facility]) Alkaline phosphatase [Enzymatic activity/volume] in Serum or Plasma 63 U/L 31-125 Alkaline Phosphatase JOHANA ([facility]) Alanine aminotransferase [Enzymatic activity/volume] in Seru m or Plasma 13 U/L 6-29 Alt JOHANA ([facility]) ID Date Data Source [id number] 03/22/2021 12:00:00 AM EDT [place] ([facility]) Name Value Range Interpretation Code Description Data Larissa rce(s) Supporting Document(s) Cholesterol [Mass/volume] in Serum or Plasma 220 mg/dL <200 Above high normal Cholesterol, Total JOHANA ([facility]) Cholesterol in HDL [Mass/volume] in Serum or Plasma 43 mg/dL > or = 50 Below low normal HDL Cholesterol JOHANA ([facility]) Cholesterol.total/Cholesterol in HDL [Mass Ratio] in Serum o r Plasma 5.1 (calc) <5.0 Above high normal Chol/hdlc Ratio JOHANA ([facility]) Cholesterol in LDL [Mass/volume] in Serum or Plasma by calculation 147 mg/dL_(calc) Above high normal LDL-cholesterol JOHANA ([facility]) Triglyceride [Mass/volume] in Serum or Plasma 167 mg/dL <150 Above high normal Triglycerides JOHANA ([facility]) Cholesterol non HDL [Mass/volume] in Serum or Plasma 177 mg/dL_( calc) <130 Above high normal Non HDL Cholesterol JOHANA ([facility]) ID Date Data Source [id number] 03/22/2021 12:00[facility]00 [facility] Name Value Range Interpretation Code Description Data Larissa rce(s) Supporting Document(s) Iron [Mass/volume] in Serum or Plasma 79 mcg/dL 40-190 Iron, Total JOHANA ([facility]) Iron binding capacity [Mass/volume] in Serum or Plasma 319 m cg/dL_(calc) 250-450 Iron Binding Capacity JOHANA ([facility]) Iron saturation [Mass Fraction] in Serum or Plasma 25 %_(calc) 16- 45 % Saturation JOHANA ([facility]) Ferritin [Mass/volume] in Serum or Plasma 38 NG/mL 16-154 Ferritin JOHANA ([facility]) ID Date Data Source [id number] 03/22/2021 12:00:00 AM EDT JOHANA ([facility]) Name Value Range Interpretation Code Description Data Larissa rce(s) Supporting Document(s) Folate [Mass/volume] in Serum or Plasma 7.1 NG/mL Folate, Serum JOHANA ([facility]) Cobalamin (Vitamin B12) [Mass/volume] in Serum or Plasma 206 pg/mL 200-1100 Vitamin B12 JOHANA ([facility]) ID Date Data Source [id number] 03/22/2021 12:00:00 AM EDT JOHANA ([facility]) Name Value Range Interpretation Code Description Data Larissa rce(s) Supporting Document(s) Thyrotropin [Units/volume] in Serum or Plasma 6.92 mIU/L Above high normal [facility] ID Date Data Source [id number] 03/22/2021 12:00:00 AM [facility] Name Value Range Interpretation Code Description Data Larissa rce(s) Supporting Document(s) Leukocytes [#/volume] in Blood by Automated count 6.4 thousand/uL 3 .8-10.8 White Blood Cell Count JOHANA ([facility]) Hemoglobin [Mass/volume] in Blood 12.1 g/dL 11.7-15.5 He moglobin JOHANA ([facility]) Erythrocytes [#/volume] in Blood by Automated count 4.21 million/uL 3.80-5.10 Red Blood Cell Count JOHANA ([facility]) Erythrocyte mean corpuscular volume [Entitic volume] by Auto mated count 84.6 fL 80.0-100.0 Mcv JOHANA ([facility]) Erythrocyte mean corpuscular hemoglobin [Entitic mass] by Automated count 28.7 pg 27.0-33.0 Mch JOHANA ([facility]) Hematocrit [Volume Fraction] of Blood by Automated count 35.6 % 35.0-45.0 Hematocrit JOHANA ([facility]) Erythrocyte mean corpuscular hemoglobin concentration [Mass/volume] by Automated count 34.0 g/dL 32.0-36.0 Mchc JOHANA ([facility]) Platelets [#/volume] in Blood by Automated count 289 thousand/uL 14 0-400 Platelet Count JOHANA ([facility]) Erythrocyte distribution width [Ratio] by Automated count 14.5 % 11.0-15.0 Rdw JOHANA ([facility]) Lymphocytes [#/volume] in Blood by Automated count 1677 cells/uL 85 0-3900 Absolute Lymphocytes JOHANA ([facility]) Neutrophils [#/volume] in Blood by Automated count 3859 cells/uL 15 00-7800 Absolute Neutrophils JOHANA ([facility]) Platelet mean volume [Entitic volume] in Blood by [place] 11.0 f L 7.5-12.5 Mpv JOHANA ([facility]) Monocytes [#/volume] in Blood by Automated count 640 cells/uL 200-9 50 Absolute Monocytes JOHANA ([facility]) Eosinophils [#/volume] in Blood by Automated count 173 cells/uL 15- 500 Absolute Eosinophils JOHANA ([facility]) Lymphocytes/100 leukocytes in Blood by Automated count 26.2 % 15-49 Lymphocytes JOHANA ([facility]) Neutrophils/100 leukocytes in Blood by Automated count 60.3 % 38-80 Neutrophils [place] ([facility]) Basophils [#/volume] in Blood by Automated count 51 cells/uL 0-200 Absolute Basophils JOHANA ([facility]) Basophils/100 leukocytes in Blood by Automated count 0.8 % 0-2 Basophils JOHANA ([facility]) Eosinophils/100 leukocytes in Blood by Automated count 2.7 % 0-8 Eosinophils [place] ([facility]) Monocytes/100 leukocytes in Blood by Automated count 10.0 % 0-13 Monocytes [place] ([facility]) ID Date Data Source [id number] 03/22/2021 12:00:00 AM EDT [facility]) Name Value Range Interpretation Code Description Data Larissa rce(s) Supporting Document(s) Glucose [Mass/volume] in Serum or Plasma 94 mg/dL 65-99 Glucose [facility]) Glomerular filtration rate/1.73 sq M.pre dicted among non-blacks [Volume Rate/Area] in Serum, Plasma or Blood by Creatinine-based formula (CKD-EPI) 90 mL/min/1.73m2 > or = 60 eGFR Non-afr. Azerbaijani JOHANA ([facility]) Urea nitrogen [Mass/volume] in Serum or Plasma 15 mg/dL 7-25 Urea Nitrogen (BUN) [place] ([facility]) Creatinine [Mass/volume] in Serum or Plasma 0.82 mg/dL 0.50-1.10 Creatinine [place] ([facility]) Glomerular filtration rate/1.73 sq M.pre dicted among blacks [Volume Rate/Area] in Serum, Plasma or Blood by Creatinine-based formula (CKD-EPI) 104 mL/min/1.73m2 > or = 60 eGFR JOHANA ([facility]) Sodium [Moles/volume] in Serum or Plasma 140 mmol/L 135-146 Sodium JOHANA ([facility]) Urea nitrogen/Creatinine [Mass Ratio] in Serum or Plasma not applic able 6-22 BUN/creatinine Ratio [place] ([facility]) Potassium [Moles/volume] in Serum or Plasma 3.5 mmol/L 3.5-5.3 Potassium JOHANA ([facility]) Chloride [Moles/volume] in Serum or Plasma 106 mmol/L 98-110 Chloride JOHANA ([facility]) Carbon dioxide, total [Moles/volume] in Serum or Plasma 23 mmol/L 20-32 Carbon Dioxide JOHANA ([facility]) Protein [Mass/volume] in Serum or Plasma 6.5 g/dL 6.1-8.1 Protein, Total JOHANA ([facility]) Albumin [Mass/volume] in Serum or Plasma 4.1 g/dL 3.6-5.1 Albumin [place] ([facility]) Calcium [Mass/volume] in Serum or Plasma 8.8 mg/dL 8.6-10.2 Calcium [place] ([facility]) Albumin/Globulin [Mass Ratio] in Serum or Plasma 1.7 (calc) 1.0-2 .5 Albumin/globulin Ratio [place] ([facility]) Bilirubin.total [Mass/volume] in Serum or Plasma 0.5 mg/dL 0.2-1 .2 Bilirubin, Total [place] ([facility]) Globulin [Mass/volume] in Serum by calculation 2.4 g/dL_(calc) 1.9- 3.7 Globulin [place] ([facility]) Aspartate aminotransferase [Enzymatic activity/volume] in Serum or Plasma 16 U/L 10-30 Ast JOHANA ([facility]) Alanine aminotransferase [Enzymatic activity/volume] in Seru m or Plasma 13 U/L 6-29 Alt JOHANA ([facility]) Alkaline phosphatase [Enzymatic activity/volume] in Serum or Plasma 63 U/L 31-125 Alkaline Phosphatase JOHANA ([facility]) ID Date Data Source [id number] 03/22/2021 12:00:00 AM EDT [place] ([facility]) Name Value Range Interpretation Code Description Data Larissa rce(s) Supporting Document(s) Cholesterol [Mass/volume] in Serum or Plasma 220 mg/dL <200 Above high normal Cholesterol, Total [place] ([facility]) Cholesterol in HDL [Mass/volume] in Serum or Plasma 43 mg/dL > or = 50 Below low normal HDL Cholesterol JOHANA ([facility]) Triglyceride [Mass/volume] in Serum or Plasma 167 mg/dL <150 Above high normal Triglycerides JOHANA ([facility]) Cholesterol.total/Cholesterol in HDL [Mass Ratio] in Serum o r Plasma 5.1 (calc) <5.0 Above high normal Chol/hdlc Ratio JOHANA ([facility]) Cholesterol in LDL [Mass/volume] in Serum or Plasma by calculation 147 mg/dL_(calc) Above high normal LDL-cholesterol JOHANA ([facility]) Cholesterol non HDL [Mass/volume] in Serum or Plasma 177 mg/dL_( calc) <130 Above high normal Non HDL Cholesterol JOHANA ([facility]) ID Date Data Source [id number] 03/22/2021 12:00:00 AM EDT JOHANA ([facility]) Name Value Range Interpretation Code Description Data Larissa rce(s) Supporting Document(s) Iron binding capacity [Mass/volume] in Serum or Plasma 319 m cg/dL_(calc) 250-450 Iron Binding Capacity JOHANA ([facility]) Iron [Mass/volume] in Serum or Plasma 79 mcg/dL 40-190 Iron, Total JOHANA ([facility]) Iron saturation [Mass Fraction] in Serum or Plasma 25 %_(calc) 16- 45 % Saturation JOHANA ([facility]) Ferritin [Mass/volume] in Serum or Plasma 38 NG/mL 16-154 Ferritin JOHANA ([facility]) ID Date Data Source [id number] 03/22/2021 12:00:00 [facility] Name Value Range Interpretation Code Description Data Larissa rce(s) Supporting Document(s) Cobalamin (Vitamin B12) [Mass/volume] in Serum or Plasma 206 pg/mL 200-1100 Vitamin B12 JOHANA ([facility]) Folate [Mass/volume] in Serum or Plasma 7.1 NG/mL Folate, Serum JOHANA ([facility]) ID Date Data Source [id number] 03/22/2021 12:00:00 AM EDT JOHANA ([facility]) Name Value Range Interpretation Code Description Data Larissa rce(s) Supporting Document(s) Thyrotropin [Units/volume] in Serum or Plasma 6.92 mIU/L Above high normal Tsh JOHANA ([facility]) ID Date Data Source [id number] 03/22/2021 12:00:00 AM EDT JOHANA ([facility]) Name Value Range Interpretation Code Description Data Larissa rce(s) Supporting Document(s) Hematocrit [Volume Fraction] of Blood by Automated count 35.6 % 35.0-45.0 Hematocrit [place] ([facility]) Leukocytes [#/volume] in Blood by Automated count 6.4 thousand/uL 3 .8-10.8 White Blood Cell Count JOHANA ([facility]) Hemoglobin [Mass/volume] in Blood 12.1 g/dL 11.7-15.5 He moglobin JOHANA ([facility]) Erythrocytes [#/volume] in Blood by Automated count 4.21 million/uL 3.80-5.10 Red Blood Cell Count JOHANA ([facility]) Erythrocyte mean corpuscular volume [Entitic volume] by Auto mated count 84.6 fL 80.0-100.0 Mcv JOHANA ([facility]) Erythrocyte mean corpuscular hemoglobin concentration [Mass/volume] by Automated count 34.0 g/dL 32.0-36.0 Mchc JOHANA ([facility]) Erythrocyte mean corpuscular hemoglobin [Entitic mass] by Automated count 28.7 pg 27.0-33.0 Mch [place] ([facility]) Erythrocyte distribution width [Ratio] by Automated count 14.5 % 11.0-15.0 Rdw JOHANA ([facility]) Platelets [#/volume] in Blood by Automated count 289 thousand/uL 14 0-400 Platelet Count JOHANA ([facility]) Neutrophils [#/volume] in Blood by Automated count 3859 cells/uL 15 00-7800 Absolute Neutrophils JOHANA ([facility]) Platelet mean volume [Entitic volume] in Blood by [place] 11.0 f L 7.5-12.5 Mpv JOHANA ([facility]) Lymphocytes [#/volume] in Blood by Automated count 1677 cells/uL 85 0-3900 Absolute Lymphocytes JOHANA ([facility]) Monocytes [#/volume] in Blood by Automated count 640 cells/uL 200-9 50 Absolute Monocytes JOHANA ([facility]) Eosinophils [#/volume] in Blood by Automated count 173 cells/uL 15- 500 Absolute Eosinophils JOHANA ([facility]) Lymphocytes/100 leukocytes in Blood by Automated count 26.2 % 15-49 Lymphocytes JOHANA ([facility]) Basophils [#/volume] in Blood by Automated count 51 cells/uL 0-200 Absolute Basophils JOHANA ([facility]) Neutrophils/100 leukocytes in Blood by Automated count 60.3 % 38-80 Neutrophils JOHANA ([facility]) Eosinophils/100 leukocytes in Blood by Automated count 2.7 % 0-8 Eosinophils JOHANA ([facility]) Basophils/100 leukocytes in Blood by Automated count 0.8 % 0-2 Basophils JOHANA ([facility]) Monocytes/100 leukocytes in Blood by Automated count 10.0 % 0-13 Monocytes JOHANA ([facility]) ID Date Data Source [id number] 03/22/2021 12:00:00 AM EDT JOHANA ([facility]) Name Value Range Interpretation Code Description Data Larissa rce(s) Supporting Document(s) Glucose [Mass/volume] in Serum or Plasma 94 mg/dL 65-99 Glucose JOHANA ([facility]) Creatinine [Mass/volume] in Serum or Plasma 0.82 mg/dL 0.50-1.10 Creatinine JOHANA ([facility]) Urea nitrogen [Mass/volume] in Serum or Plasma 15 mg/dL 7-25 Urea Nitrogen (BUN) JOAHNA ([facility]) Glomerular filtration rate/1.73 sq M.pre dicted among blacks [Volume Rate/Area] in Serum, Plasma or Blood by Creatinine-based formula (CKD-EPI) 104 mL/min/1.73m2 > or = 60 eGFR JOHANA ([facility]) Glomerular filtration rate/1.73 sq M.pre dicted among non-blacks [Volume Rate/Area] in Serum, Plasma or Blood by Creatinine-based formula (CKD-EPI) 90 mL/min/1.73m2 > or = 60 eGFR Non-afr. [place]ijani JOHANA ([facility]) Urea nitrogen/Creatinine [Mass Ratio] in Serum or Plasma not applic able 6-22 BUN/creatinine Ratio JOHANA ([facility]) Potassium [Moles/volume] in Serum or Plasma 3.5 mmol/L 3.5-5.3 Potassium JOHANA ([facility]) Sodium [Moles/volume] in Serum or Plasma 140 mmol/L 135-146 Sodium [place] ([facility]) Chloride [Moles/volume] in Serum or Plasma 106 mmol/L 98-110 Chloride [place] ([facility]) Carbon dioxide, total [Moles/volume] in Serum or Plasma 23 mmol/L 20-32 Carbon Dioxide [place] ([facility]) Calcium [Mass/volume] in Serum or Plasma 8.8 mg/dL 8.6-10.2 Calcium [place] ([facility]) Globulin [Mass/volume] in Serum by calculation 2.4 g/dL_(calc) 1.9- 3.7 Globulin [place] ([facility]) Protein [Mass/volume] in Serum or Plasma 6.5 g/dL 6.1-8.1 Protein, Total JOHANA ([facility]) Albumin [Mass/volume] in Serum or Plasma 4.1 g/dL 3.6-5.1 Albumin [place] ([facility]) Albumin/Globulin [Mass Ratio] in Serum or Plasma 1.7 (calc) 1.0-2 .5 Albumin/globulin Ratio [place] ([facility]) Alkaline phosphatase [Enzymatic activity/volume] in Serum or Plasma 63 U/L 31-125 Alkaline Phosphatase [place] ([facility]) Bilirubin.total [Mass/volume] in Serum or Plasma 0.5 mg/dL 0.2-1 .2 Bilirubin, Total JOHANA ([facility]) Alanine aminotransferase [Enzymatic activity/volume] in Seru m or Plasma 13 U/L 6-29 Alt JOHANA ([facility]) Aspartate aminotransferase [Enzymatic activity/volume] in Serum or Plasma 16 U/L 10-30 Ast JOHANA ([facility]) ID Date Data Source [id number] 03/22/2021 12:00:00 AM EDT JOHANA ([facility]) Name Value Range Interpretation Code Description Data Larissa rce(s) Supporting Document(s) Cholesterol [Mass/volume] in Serum or Plasma 220 mg/dL <200 Above high normal Cholesterol, Total JOHANA ([facility]) Cholesterol in LDL [Mass/volume] in Serum or Plasma by calculation 147 mg/dL_(calc) Above high normal LDL-cholesterol JOHANA ([facility]) Triglyceride [Mass/volume] in Serum or Plasma 167 mg/dL <150 Above high normal Triglycerides JOHANA ([facility]) Cholesterol in HDL [Mass/volume] in Serum or Plasma 43 mg/dL > or = 50 Below low normal HDL Cholesterol JOHANA ([facility]) Cholesterol.total/Cholesterol in HDL [Mass Ratio] in Serum o r Plasma 5.1 (calc) <5.0 Above high normal Chol/hdlc Ratio JOHANA ([facility]) Cholesterol non HDL [Mass/volume] in Serum or Plasma 177 mg/dL_( calc) <130 Above high normal Non HDL Cholesterol JOHANA ([facility]) ID Date Data Source [id number] 03/22/2021 12:00:00 AM EDT JOHANA ([facility]) Name Value Range Interpretation Code Description Data Larissa rce(s) Supporting Document(s) Iron [Mass/volume] in Serum or Plasma 79 mcg/dL 40-190 Iron, Total JOHANA ([facility]) Iron binding capacity [Mass/volume] in Serum or Plasma 319 m cg/dL_(calc) 250-450 Iron Binding Capacity JOHANA ([facility]) Iron saturation [Mass Fraction] in Serum or Plasma 25 %_(calc) 16- 45 % Saturation JOHAAN ([facility]) Ferritin [Mass/volume] in Serum or Plasma 38 NG/mL 16-154 Ferritin JOHANA ([facility]) ID Date Data Source [id number] 03/22/2021 12:00:00 AM EDT JOHANA ([facility]) Name Value Range Interpretation Code Description Data Larissa rce(s) Supporting Document(s) Cobalamin (Vitamin B12) [Mass/volume] in Serum or Plasma 206 pg/mL 200-1100 Vitamin B12 JOHANA ([facility]) Folate [Mass/volume] in Serum or Plasma 7.1 NG/mL Folate, Serum [facility] ([facility]) ID Date Data Source [id number] 03/22/2021 12:00:00 AM EDT JOH[facility] ([facility]) Name Value Range Interpretation Code Description Data Larissa rce(s) Supporting Document(s) Thyrotropin [Units/volume] in Serum or Plasma 6.92 mIU/L Above high normal Tsh [facility] ([facility]) ID Date Data Source [id number] 03/22/2021 12:00:00 AM EDT [facility]) Name Value Range Interpretation Code Description Data Larissa rce(s) Supporting Document(s) Leukocytes [#/volume] in Blood by Automated count 6.4 thousand/uL 3 .8-10.8 White Blood Cell Count JOHANA ([facility]) Erythrocytes [#/volume] in Blood by Automated count 4.21 million/uL 3.80-5.10 Red Blood Cell Count JOHANA ([facility]) Hematocrit [Volume Fraction] of Blood by Automated count 35.6 % 35.0-45.0 Hematocrit JOH[facility] ([facility]) Hemoglobin [Mass/volume] in Blood 12.1 g/dL 11.7-15.5 He moglobin JOHANA ([facility]) Erythrocyte mean corpuscular volume [Entitic volume] by Auto mated count 84.6 fL 80.0-100.0 Mcv [facility]ANA ([facility]) Platelet mean volume [Entitic volume] in Blood by [place] 11.0 f L 7.5-12.5 Mpv JOHANA ([facility]) Platelets [#/volume] in Blood by Automated count 289 thousand/uL 14 0-400 Platelet Count JOHANA ([facility]) Erythrocyte mean corpuscular hemoglobin [Entitic mass] by Automated count 28.7 pg 27.0-33.0 Mch JOHANA ([facility]) Erythrocyte distribution width [Ratio] by Automated count 14.5 % 11.0-15.0 Rdw JOH[facility] ([facility]) Erythrocyte mean corpuscular hemoglobin concentration [Mass/volume] by Automated count 34.0 g/dL 32.0-36.0 Mchc JOHANA ([facility]) Monocytes [#/volume] in Blood by Automated count 640 cells/uL 200-9 50 Absolute Monocytes JOHANA ([facility]) Lymphocytes [#/volume] in Blood by Automated count 1677 cells/uL 85 0-3900 Absolute Lymphocytes JOH[facility] ([facility]) Neutrophils [#/volume] in Blood by Automated count 3859 cells/uL 15 00-7800 Absolute Neutrophils JOH[facility] ([facility]) Basophils [#/volume] in Blood by Automated count 51 cells/uL 0-200 Absolute Basophils J[facility] ([facility]) Eosinophils [#/volume] in Blood by Automated count 173 cells/uL 15- 500 Absolute Eosinophils JOH[facility] ([facility]) Monocytes/100 leukocytes in Blood by Automated count 10.0 % 0-13 Monocytes J[facility] ([facility]) Lymphocytes/100 leukocytes in Blood by Automated count 26.2 % 15-49 Lymphocytes JOH[facility] ([facility]) Neutrophils/100 leukocytes in Blood by Automated count 60.3 % 38-80 Neutrophils J[facility] ([facility]) Eosinophils/100 leukocytes in Blood by Automated count 2.7 % 0-8 Eosinophils [facility] ([facility]) Basophils/100 leukocytes in Blood by Automated count 0.8 % 0-2 Basophils [facility] ([facility]) ID Date Data Source [id number] 03/22/2021 12:00:00 AM EDT [facility] ([facility]) Name Value Range Interpretation Code Description Data Larissa rce(s) Supporting Document(s) Urea nitrogen [Mass/volume] in Serum or Plasma 15 mg/dL 7-25 Urea Nitrogen (BUN) OJHANA ([facility]) Creatinine [Mass/volume] in Serum or Plasma 0.82 mg/dL 0.50-1.10 Creatinine [facility] ([facility]) Glomerular filtration rate/1.73 sq M.pre dicted among non-blacks [Volume Rate/Area] in Serum, Plasma or Blood by Creatinine-based formula (CKD-EPI) 90 mL/min/1.73m2 > or = 60 eGFR Non-afr. [place] JOHANA ([facility]) Glucose [Mass/volume] in Serum or Plasma 94 mg/dL 65-99 Glucose [facility] ([facility]) Urea nitrogen/Creatinine [Mass Ratio] in Serum or Plasma not applic able 6-22 BUN/creatinine Ratio JOHANA ([facility]) Glomerular filtration rate/1.73 sq M.pre dicted among blacks [Volume Rate/Area] in Serum, Plasma or Blood by Creatinine-based formula (CKD-EPI) 104 mL/min/1.73m2 > or = 60 eGFR JOHANA (No [facility]) Potassium [Moles/volume] in Serum or Plasma 3.5 mmol/L 3.5-5.3 Potassium J[facility] ([facility]) Sodium [Moles/volume] in Serum or Plasma 140 mmol/L 135-146 Sodium J[facility] ([facility]) Chloride [Moles/volume] in Serum or Plasma 106 mmol/L 98-110 Chloride [facility]) Carbon dioxide, total [Moles/volume] in Serum or Plasma 23 mmol/L 20-32 Carbon Dioxide JOHANA ([facility]) Globulin [Mass/volume] in Serum by calculation 2.4 g/dL_(calc) 1.9- 3.7 Globulin [facility] ([facility]) Albumin [Mass/volume] in Serum or Plasma 4.1 g/dL 3.6-5.1 Albumin [facility] ([facility]) Protein [Mass/volume] in Serum or Plasma 6.5 g/dL 6.1-8.1 Protein, Total JOHANA ([facility]) Calcium [Mass/volume] in Serum or Plasma 8.8 mg/dL 8.6-10.2 Calcium JOH[facility] ([facility]) Alkaline phosphatase [Enzymatic activity/volume] in Serum or Plasma 63 U/L 31-125 Alkaline Phosphatase J[facility] ([facility]) Bilirubin.total [Mass/volume] in Serum or Plasma 0.5 mg/dL 0.2-1 .2 Bilirubin, Total JOHANA ([facility]) Aspartate aminotransferase [Enzymatic activity/volume] in Serum or Plasma 16 U/L 10-30 Ast JOHANA ([facility]) Albumin/Globulin [Mass Ratio] in Serum or Plasma 1.7 (calc) 1.0-2 .5 Albumin/globulin Ratio JOH[facility] ([facility]) Alanine aminotransferase [Enzymatic activity/volume] in Seru m or Plasma 13 U/L 6-29 Alt [facility] ([facility]) ID Date Data Source [id number] 03/22/2021 12:00:00 AM EDT JOH[facility] ([facility]) Name Value Range Interpretation Code Description Data Larissa rce(s) Supporting Document(s) Cholesterol [Mass/volume] in Serum or Plasma 220 mg/dL <200 Above high normal Cholesterol, Total JOH[facility] ([facility]) Cholesterol in HDL [Mass/volume] in Serum or Plasma 43 mg/dL > or = 50 Below low normal HDL Cholesterol J[facility] ([facility]) Cholesterol non HDL [Mass/volume] in Serum or Plasma 177 mg/dL_( calc) <130 Above high normal Non HDL Cholesterol J[facility] ([facility]) Cholesterol.total/Cholesterol in HDL [Mass Ratio] in Serum o r Plasma 5.1 (calc) <5.0 Above high normal Chol/hdlc Ratio JOHANA ([facility]) Cholesterol in LDL [Mass/volume] in Serum or Plasma by calculation 147 mg/dL_(calc) Above high normal LDL-cholesterol J[facility] ([facility]) Triglyceride [Mass/volume] in Serum or Plasma 167 mg/dL <150 Above high normal Triglycerides [facility] ([facility]) ID Date Data Source [id number] 03/22/2021 12:00:00 AM EDT JOH[facility] ([facility]) Name Value Range Interpretation Code Description Data Larissa rce(s) Supporting Document(s) Iron [Mass/volume] in Serum or Plasma 79 mcg/dL 40-190 Iron, Total JOH[facility] ([facility]) Iron binding capacity [Mass/volume] in Serum or Plasma 319 m cg/dL_(calc) 250-450 Iron Binding Capacity JOHANA ([facility]) Iron saturation [Mass Fraction] in Serum or Plasma 25 %_(calc) 16- 45 % Saturation J[facility] ([facility]) Ferritin [Mass/volume] in Serum or Plasma 38 NG/mL 16-154 Ferritin [facility] ([facility]) ID Date Data Source [id number] 03/22/2021 12:00:00 [facility] Name Value Range Interpretation Code Description Data Larissa rce(s) Supporting Document(s) Folate [Mass/volume] in Serum or Plasma 7.1 NG/mL Folate, Serum JOH[facility] ([facility]) Cobalamin (Vitamin B12) [Mass/volume] in Serum or Plasma 206 pg/mL 200-1100 Vitamin B12 J[facility] ([facility]) ID Date Data Source [id number] 03/22/2021 12:00:00 AM EDT JOH[facility] ([facility]) Name Value Range Interpretation Code Description Data Larissa rce(s) Supporting Document(s) Thyrotropin [Units/volume] in Serum or Plasma 6.92 mIU/L Above high normal Tsh [facility] ([facility]) ID Date Data Source [id number] 03/22/2021 12:00:00 AM [facility] Name Value Range Interpretation Code Description Data Larissa rce(s) Supporting Document(s) Hemoglobin [Mass/volume] in Blood 12.1 g/dL 11.7-15.5 He stacybin JOHANA ([facility]) Leukocytes [#/volume] in Blood by Automated count 6.4 thousand/uL 3 .8-10.8 White Blood Cell Count [facility] ([facility]) Erythrocytes [#/volume] in Blood by Automated count 4.21 million/uL 3.80-5.10 Red Blood Cell Count [facility]OH[facility] ([facility]) Hematocrit [Volume Fraction] of Blood by Automated count 35.6 % 35.0-45.0 Hematocrit [facility] ([facility]) Erythrocyte mean corpuscular hemoglobin concentration [Mass/volume] by Automated count 34.0 g/dL 32.0-36.0 Mchc JOHANA ([facility]) Erythrocyte mean corpuscular volume [Entitic volume] by Auto mated count 84.6 fL 80.0-100.0 Mcv [facility] ([facility]) Erythrocyte mean corpuscular hemoglobin [Entitic mass] by Automated count 28.7 pg 27.0-33.0 Mch [facility] ([facility]) Lymphocytes [#/volume] in Blood by Automated count 1677 cells/uL 85 0-3900 Absolute Lymphocytes JOH[facility] ([facility]) Platelet mean volume [Entitic volume] in Blood by [place] 11.0 f L 7.5-12.5 Mpv J[facility] ([facility]) Platelets [#/volume] in Blood by Automated count 289 thousand/uL 14 0-400 Platelet Count [facility] ([facility]) Neutrophils [#/volume] in Blood by Automated count 3859 cells/uL 15 00-7800 Absolute Neutrophils JOH[facility] ([facility]) Erythrocyte distribution width [Ratio] by Automated count 14.5 % 11.0-15.0 Rdw JOH[facility] ([facility]) Lymphocytes/100 leukocytes in Blood by Automated count 26.2 % 15-49 Lymphocytes J[facility] ([facility]) Neutrophils/100 leukocytes in Blood by Automated count 60.3 % 38-80 Neutrophils J[facility] ([facility]) Basophils [#/volume] in Blood by Automated count 51 cells/uL 0-200 Absolute Basophils J[facility] ([facility]) Monocytes [#/volume] in Blood by Automated count 640 cells/uL 200-9 50 Absolute Monocytes [facility] ([facility]) Eosinophils [#/volume] in Blood by Automated count 173 cells/uL 15- 500 Absolute Eosinophils J[facility] ([facility]) Monocytes/100 leukocytes in Blood by Automated count 10.0 % 0-13 Monocytes [facility] ([facility]) Basophils/100 leukocytes in Blood by Automated count 0.8 % 0-2 Basophils [facility] ([facility]) Eosinophils/100 leukocytes in Blood by Automated count 2.7 % 0-8 Eosinophils [facility] ([facility]) ID Date Data Source [id number] 03/22/2021 12:00:00 AM EDT [place] ([facility]) Name Value Range Interpretation Code Description Data Larissa rce(s) Supporting Document(s) Glomerular filtration rate/1.73 sq M.pre dicted among non-blacks [Volume Rate/Area] in Serum, Plasma or Blood by Creatinine-based formula (CKD-EPI) 90 mL/min/1.73m2 > or = 60 eGFR Non-afr. [place] JOHANA ([facility]) Glucose [Mass/volume] in Serum or Plasma 94 mg/dL 65-99 Glucose [facility] ([facility]) Urea nitrogen [Mass/volume] in Serum or Plasma 15 mg/dL 7-25 Urea Nitrogen (BUN) [facility]) Creatinine [Mass/volume] in Serum or Plasma 0.82 mg/dL 0.50-1.10 [facility]inine [facility] Potassium [Moles/volume] in Serum or Plasma 3.5 mmol/L 3.5-5.3 Potassium J[facility] ([facility]) Sodium [Moles/volume] in Serum or Plasma 140 mmol/L 135-146 [facility] Glomerular filtration rate/1.73 sq M.pre dicted among blacks [Volume Rate/Area] in Serum, Plasma or Blood by Creatinine-based formula (CKD-EPI) 104 mL/min/1.73m2 > or = 60 eGFR JOHANA ([facility]) Urea nitrogen/Creatinine [Mass Ratio] in Serum or Plasma not applic able 6-22 BUN/creatinine Ratio JOHANA ([facility]) Calcium [Mass/volume] in Serum or Plasma 8.8 mg/dL 8.6-10.2 Calcium J[facility] ([facility]) Carbon dioxide, total [Moles/volume] in Serum or Plasma 23 mmol/L 20-32 Carbon Dioxide JOH[facility] ([facility]) Protein [Mass/volume] in Serum or Plasma 6.5 g/dL 6.1-8.1 Protein, Total JOH[facility] ([facility]) Chloride [Moles/volume] in Serum or Plasma 106 mmol/L 98-110 Chloride JOH[facility] ([facility]) Alkaline phosphatase [Enzymatic activity/volume] in Serum or Plasma 63 U/L 31-125 Alkaline Phosphatase [facility] ([facility]) Globulin [Mass/volume] in Serum by calculation 2.4 g/dL_(calc) 1.9- 3.7 Globulin [facility] ([facility]) Albumin [Mass/volume] in Serum or Plasma 4.1 g/dL 3.6-5.1 Albumin [place] ([facility]) Albumin/Globulin [Mass Ratio] in Serum or Plasma 1.7 (calc) 1.0-2 .5 Albumin/globulin Ratio [facility] ([facility]) Bilirubin.total [Mass/volume] in Serum or Plasma 0.5 mg/dL 0.2-1 .2 Bilirubin, Total [place] ([facility]) Aspartate aminotransferase [Enzymatic activity/volume] in Serum or Plasma 16 U/L 10-30 Ast [facility] ([facility]) Alanine aminotransferase [Enzymatic activity/volume] in Seru m or Plasma 13 U/L 6-29 Alt [facility] ([facility]) ID Date Data Source [id number] 03/22/2021 12:00:00 AM EDT [place] ([facility]) Name Value Range Interpretation Code Description Data Larissa rce(s) Supporting Document(s) Cholesterol in HDL [Mass/volume] in Serum or Plasma 43 mg/dL > or = 50 Below low normal HDL Cholesterol [facility] ([facility]) Cholesterol [Mass/volume] in Serum or Plasma 220 mg/dL <200 Above high normal Cholesterol, Total JOHANA ([facility]) Triglyceride [Mass/volume] in Serum or Plasma 167 mg/dL <150 Above high normal Triglycerides JOHANA ([facility]) Cholesterol.total/Cholesterol in HDL [Mass Ratio] in Serum o r Plasma 5.1 (calc) <5.0 Above high normal Chol/hdlc Ratio JOH[facility] ([facility]) Cholesterol non HDL [Mass/volume] in Serum or Plasma 177 mg/dL_( calc) <130 Above high normal Non HDL Cholesterol [facility] ([facility]) Cholesterol in LDL [Mass/volume] in Serum or Plasma by calculation 147 mg/dL_(calc) Above high normal LDL-cholesterol J[facility] ([facility]) ID Date Data Source [id number] 03/22/2021 12:00:00 AM [facility]T [facility] Name Value Range Interpretation Code Description Data Larissa rce(s) Supporting Document(s) Iron saturation [Mass Fraction] in Serum or Plasma 25 %_(calc) 16- 45 % Saturation J[facility] ([facility]) Iron binding capacity [Mass/volume] in Serum or Plasma 319 m cg/dL_(calc) 250-450 Iron Binding Capacity JOHANA ([facility]) Iron [Mass/volume] in Serum or Plasma 79 mcg/dL 40-190 Iron, Total JOH[facility] ([facility]) Ferritin [Mass/volume] in Serum or Plasma 38 NG/mL 16-154 Ferritin [facility] ([facility]) ID Date Data Source [id number] 01/06/2021 03:20:00 PM EDT [facility] Name Value Range Interpretation Code Description Data Larissa rce(s) Supporting Document(s) SARS-CoV-2 (COVID 19) NEGATIVE - SARS-CoV-2 (COVID19) [facility] This lab was ordered by [facility] a nd reported by [facility]. ID Date Data Source [id number] 10/26/2020 11:30:00 AM EST [facility] Name Value Range Interpretation Code Description Data Larissa rce(s) Supporting Document(s) HIV 1&2 screen centaur negative negative HIV 1&2 Scree n Centaur J[facility] ([facility]) ID Date Data Source [id number] 10/26/2020 11:30:00 AM EST [facility] ([facility]) Name Value Range Interpretation Code Description Data Larissa rce(s) Supporting Document(s) thyroid stimulating hormone 2.170 uIU/mL 0.358-3.740 Thyroid Stimulating Hormone JOH[facility] ([facility]) ID Date Data Source [id number] 10/26/2020 11:30:00 AM EST [facility] ([facility]) Name Value Range Interpretation Code Description Data Larissa rce(s) Supporting Document(s) HDL cholesterol 39 mg/dL >40 Below low normal HDL Cholestero l JOHANA ([facility]) triglycerides level 216 mg/dL <150 Above high normal Triglycer ides Level JOHANA ([facility]) cholesterol level 195 mg/dL <200 Cholesterol Level [place] ([facility]) cholesterol risk ratio <5 Cholesterol R isk Ratio JOHANA ([facility]) non-HDL-C 156 mg/dL Non-hdl-c JOH[facility] ([facility]) Cholesterol in LDL [Mass/volume] in Serum or Plasma 113 mg/dL <100 Above high normal LDL Cholesterol [facility] ([facility]) ID Date Data Source [id number] 10/26/2020 11:30:00 AM EST [facility] ([facility]) Name Value Range Interpretation Code Description Data Larissa rce(s) Supporting Document(s) hepatitis C virus cy index 0.1 index <0.8 Hepatiti s C Virus Cy Index [facility] ([facility]) ID Date Data Source [id number] 10/26/2020 11:30:00 AM EST [facility] ([facility]) Name Value Range Interpretation Code Description Data Larissa rce(s) Supporting Document(s) glucose, fasting 102 mg/dL 70-100 Above high normal Glucose, Fas ting JOH[facility] ([facility]) glomerular filtration rate > 60.0 >60 Glomerula r Filtration Rate JOHANA ([facility]) blood urea nitrogen 15 mg/dL 7-18 Blood Urea Nitro gen JOHANA ([facility]) creatinine for GFR 0.94 mg/dL 0.55-1.30 Creatinine for GF R JOHANA ([facility]) potassium serum 3.9 mEq/L 3.5-5.1 Potassium Serum ATHE NA ([facility]) sodium level 142 mEq/L 136-145 Sodium Level JOHANA ([facility]) chloride level 106 mEq/L 98-107 Chloride Level JOHANA ([facility]) anion gap 7 mEq/L 8-16 Below low normal Anion Gap JOHANA ( [facility]) carbon dioxide level 29 mEq/L 21-32 Carbon Dioxide Level JOHANA ([facility]) calcium level 9.3 mg/dL 8.5-10.1 Calcium Level JOHANA ( [facility]) AST/SGOT 11 U/L 7-37 AST/SGOT [facility] ([facility]) ALT/SGPT 18 U/L 12-78 ALT/SGPT JOH[facility] ([facility]) bilirubin,total 0.3 mg/dL 0.2-1.0 Bilirubin,total ATHE ([facility]) alkaline phosphatase 72 U/L 45-117 Alkaline Phosph atase JOHANA ([facility]) albumin 3.7 gm/dL 3.2-5.2 Albumin JOH[facility] ([facility]) albumin/globulin ratio 1.2-2.2 Below low normal Albumin /globulin Ratio JOHANA ([facility]) total protein 7.0 gm/dL 6.4-8.2 Total Protein JOHANA ( [facility]) ID Date Data Source [id number] 10/26/2020 11:30:00 AM EST [facility] ([facility]) Name Value Range Interpretation Code Description Data Larissa rce(s) Supporting Document(s) HIV 1&2 screen centaur negative negative HIV 1&2 Scree n Centaur J[facility]ANA ([facility]) ID Date Data Source [id number] 10/26/2020 11:30:00 AM EST [facility] ([facility]) Name Value Range Interpretation Code Description Data Larissa rce(s) Supporting Document(s) thyroid stimulating hormone 2.170 uIU/mL 0.358-3.740 Thyroid Stimulating Hormone JOH[facility] ([facility]) ID Date Data Source [id number] 10/26/2020 11:30:00 AM EST [facility] ([facility]) Name Value Range Interpretation Code Description Data Larissa rce(s) Supporting Document(s) triglycerides level 216 mg/dL <150 Above high normal Triglycer ides Level JOHANA ([facility]) HDL cholesterol 39 mg/dL >40 Below low normal HDL Cholestero l JOHANA ([facility]) cholesterol level 195 mg/dL <200 Cholesterol Level JOHANA ([facility]) Cholesterol in LDL [Mass/volume] in Serum or Plasma 113 mg/dL <100 Above high normal LDL Cholesterol [facility] ([facility]) non-HDL-C 156 mg/dL Non-hdl-c J[facility] ([facility]) cholesterol risk ratio <5 Cholesterol R isk Ratio JOHANA ([facility]) ID Date Data Source [id number] 10/26/2020 11:30:00 AM EST [facility] ([facility]) Name Value Range Interpretation Code Description Data Larissa rce(s) Supporting Document(s) hepatitis C virus cy index 0.1 index <0.8 Hepatiti s C Virus Cy Index [facility] ([facility]) ID Date Data Source [id number] 10/26/2020 11:30:00 AM EST [facility] ([facility]) Name Value Range Interpretation Code Description Data Larissa rce(s) Supporting Document(s) glucose, fasting 102 mg/dL 70-100 Above high normal Glucose, Fas ting JOHANA ([facility]) blood urea nitrogen 15 mg/dL 7-18 Blood Urea Nitro gen JOHANA ([facility]) glomerular filtration rate > 60.0 >60 Glomerula r Filtration Rate JOHANA ([facility]) creatinine for GFR 0.94 mg/dL 0.55-1.30 Creatinine for GF R JOHANA ([facility]) sodium level 142 mEq/L 136-145 Sodium Level JOHANA (No [facility]) potassium serum 3.9 mEq/L 3.5-5.1 Potassium Serum ATHE NA ([facility]) chloride level 106 mEq/L 98-107 Chloride Level JOHANA ([facility]) carbon dioxide level 29 mEq/L 21-32 Carbon Dioxide Level JOHANA ([facility]) calcium level 9.3 mg/dL 8.5-10.1 Calcium Level JOHANA ( [facility]) anion gap 7 mEq/L 8-16 Below low normal Anion Gap JOHANA ( [facility]) AST/SGOT 11 U/L 7-37 AST/SGOT [facility] ([facility]) ALT/SGPT 18 U/L 12-78 ALT/SGPT J[facility] ([facility]) alkaline phosphatase 72 U/L 45-117 Alkaline Phosph atase JOHANA ([facility]) bilirubin,total 0.3 mg/dL 0.2-1.0 Bilirubin,total ATHE NA ([facility]) total protein 7.0 gm/dL 6.4-8.2 Total Protein JOHANA ( [facility]) albumin 3.7 gm/dL 3.2-5.2 Albumin JOH[facility] ([facility]) albumin/globulin ratio 1.2-2.2 Below low normal Albumin /globulin Ratio JOHANA ([facility]) ID Date Data Source [id number] 10/26/2020 11:30:00 AM EST [facility] ([facility]) Name Value Range Interpretation Code Description Data Larissa rce(s) Supporting Document(s) HIV 1&2 screen centaur negative negative HIV 1&2 Scree n Centaur JOHANA ([facility]) ID Date Data Source [id number] 10/26/2020 11:30:00 AM EST [place] ([facility]) Name Value Range Interpretation Code Description Data Larissa rce(s) Supporting Document(s) thyroid stimulating hormone 2.170 uIU/mL 0.358-3.740 Thyroid Stimulating Hormone JOHANA ([facility]) ID Date Data Source [id number] 10/26/2020 11:30:00 AM EST JOH[facility] ([facility]) Name Value Range Interpretation Code Description Data Larissa rce(s) Supporting Document(s) triglycerides level 216 mg/dL <150 Above high normal Triglycer ides Level JOHANA ([facility]) cholesterol level 195 mg/dL <200 Cholesterol Level [place] ([facility]) Cholesterol in LDL [Mass/volume] in Serum or Plasma 113 mg/dL <100 Above high normal LDL Cholesterol J[facility] ([facility]) HDL cholesterol 39 mg/dL >40 Below low normal HDL Cholestero l JOHANA ([facility]) non-HDL-C 156 mg/dL Non-hdl-c JOHANA ([facility]) cholesterol risk ratio <5 Cholesterol R isk Ratio [place] ([facility]) ID Date Data Source [id number] 10/26/2020 11:30:00 AM EST [place] ([facility]) Name Value Range Interpretation Code Description Data Larissa rce(s) Supporting Document(s) hepatitis C virus cy index 0.1 index <0.8 Hepatiti s C Virus Cy Index JOHANA ([facility]) ID Date Data Source [id number] 10/26/2020 11:30:00 AM EST [facility] ([facility]) Name Value Range Interpretation Code Description Data Larissa rce(s) Supporting Document(s) glucose, fasting 102 mg/dL 70-100 Above high normal Glucose, Fas ting JOHANA ([facility]) blood urea nitrogen 15 mg/dL 7-18 Blood Urea Nitro gen JOHANA ([facility]) creatinine for GFR 0.94 mg/dL 0.55-1.30 Creatinine for GF R JOHANA ([facility]) glomerular filtration rate > 60.0 >60 Glomerula r Filtration Rate JOHANA ([facility]) chloride level 106 mEq/L 98-107 Chloride Level JOHANA ([facility]) potassium serum 3.9 mEq/L 3.5-5.1 Potassium Serum ATHE NA ([facility]) sodium level 142 mEq/L 136-145 Sodium Level JOHANA (No [facility]) carbon dioxide level 29 mEq/L 21-32 Carbon Dioxide Level JOHANA ([facility]) anion gap 7 mEq/L 8-16 Below low normal Anion Gap JOHANA ( [facility]) AST/SGOT 11 U/L 7-37 AST/SGOT J[facility] ([facility]) calcium level 9.3 mg/dL 8.5-10.1 Calcium Level JOHANA ( [facility]) ALT/SGPT 18 U/L 12-78 ALT/SGPT JOHANA ([facility]) alkaline phosphatase 72 U/L 45-117 Alkaline Phosph atase JOHANA ([facility]) bilirubin,total 0.3 mg/dL 0.2-1.0 Bilirubin,total ATHE ([facility]) albumin 3.7 gm/dL 3.2-5.2 Albumin JOHANA ([facility]) total protein 7.0 gm/dL 6.4-8.2 Total Protein JOHANA ( [facility]) albumin/globulin ratio 1.2-2.2 Below low normal Albumin /globulin Ratio JOHANA ([facility]) ID Date Data Source [id number] 10/26/2020 11:30:00 AM EST JOHANA ([facility]) Name Value Range Interpretation Code Description Data Larissa rce(s) Supporting Document(s) HIV 1&2 screen centaur negative negative HIV 1&2 Scree n Centaur JOHANA ([facility]) ID Date Data Source [id number] 10/26/2020 11:30:00 AM EST JOHANA ([facility]) Name Value Range Interpretation Code Description Data Larissa rce(s) Supporting Document(s) thyroid stimulating hormone 2.170 uIU/mL 0.358-3.740 Thyroid Stimulating Hormone JOHANA ([facility]) ID Date Data Source [id number] 10/26/2020 11:30:00 AM EST JOHANA ([facility]) Name Value Range Interpretation Code Description Data Larissa rce(s) Supporting Document(s) triglycerides level 216 mg/dL <150 Above high normal Triglycer ides Level JOHANA ([facility]) HDL cholesterol 39 mg/dL >40 Below low normal HDL Cholestero l JOHANA ([facility]) cholesterol level 195 mg/dL <200 Cholesterol Level JOHANA ([facility]) Cholesterol in LDL [Mass/volume] in Serum or Plasma 113 mg/dL <100 Above high normal LDL Cholesterol JOHANA ([facility]) cholesterol risk ratio <5 Cholesterol R isk Ratio JOHANA ([facility]) non-HDL-C 156 mg/dL Non-hdl-c JOHANA ([facility]) ID Date Data Source [id number] 10/26/2020 11:30:00 AM EST JOHANA ([facility]) Name Value Range Interpretation Code Description Data Larsisa rce(s) Supporting Document(s) hepatitis C virus cy index 0.1 index <0.8 Hepatiti s C Virus Cy Index JOHANA ([facility]) ID Date Data Source [id number] 10/26/2020 11:30:00 AM EST JOHANA ([facility]) Name Value Range Interpretation Code Description Data Larissa rce(s) Supporting Document(s) glucose, fasting 102 mg/dL 70-100 Above high normal Glucose, Fas ting JOHANA ([facility]) glomerular filtration rate > 60.0 >60 Glomerula r Filtration Rate JOHANA ([facility]) blood urea nitrogen 15 mg/dL 7-18 Blood Urea Nitro gen JOHANA ([facility]) sodium level 142 mEq/L 136-145 [facility] creatinine for GFR 0.94 mg/dL 0.55-1.30 Creatinine for GF R JOHANA ([facility]) carbon dioxide level 29 mEq/L 21-32 Carbon Dioxide Level JOHANA ([facility]) potassium serum 3.9 mEq/L 3.5-5.1 Potassium Serum ATHE NA ([facility]) chloride level 106 mEq/L 98-107 Chloride Level JOHANA ([facility]) calcium level 9.3 mg/dL 8.5-10.1 Calcium Level JOHANA ( [facility]) AST/SGOT 11 U/L 7-37 AST/SGOT JOHANA ([facility]) anion gap 7 mEq/L 8-16 Below low normal Anion Gap JOHANA ( [facility]) ALT/SGPT 18 U/L 12-78 ALT/SGPT OJHANA ([facility]) total protein 7.0 gm/dL 6.4-8.2 Total Protein JOHANA ( [facility]) bilirubin,total 0.3 mg/dL 0.2-1.0 Bilirubin,total ATHE ([facility]) alkaline phosphatase 72 U/L 45-117 Alkaline Phosph atase JOHANA ([facility]) albumin 3.7 gm/dL 3.2-5.2 Albumin JOHANA ([facility]) albumin/globulin ratio 1.2-2.2 Below low normal Albumin /globulin Ratio JOHANA ([facility]) ID Date Data Source [id number] 10/26/2020 11:30:00 AM EST JOHANA ([facility]) Name Value Range Interpretation Code Description Data Larissa rce(s) Supporting Document(s) HIV 1&2 screen centaur negative negative HIV 1&2 Scree n Centaur JOHANA ([facility]) ID Date Data Source [id number] 10/26/2020 11:30:00 AM EST JOHANA ([facility]) Name Value Range Interpretation Code Description Data Larissa rce(s) Supporting Document(s) thyroid stimulating hormone 2.170 uIU/mL 0.358-3.740 Thyroid Stimulating Hormone JOHANA ([facility]) ID Date Data Source [id number] 10/26/2020 11:30:00 AM EST JOHANA ([facility]) Name Value Range Interpretation Code Description Data Larissa rce(s) Supporting Document(s) cholesterol level 195 mg/dL <200 Cholesterol Level JOHANA ([facility]) triglycerides level 216 mg/dL <150 Above high normal Triglycer ides Level JOHANA ([facility]) Cholesterol in LDL [Mass/volume] in Serum or Plasma 113 mg/dL <100 Above high normal LDL Cholesterol JOHANA ([facility]) cholesterol risk ratio <5 Cholesterol R isk Ratio JOHANA ([facility]) HDL cholesterol 39 mg/dL >40 Below low normal HDL Cholestero l JOHANA ([facility]) non-HDL-C 156 mg/dL Non-hdl-c JOHANA ([facility]) ID Date Data Source [id number] 10/26/2020 11:30:00 AM EST JOHANA ([facility]) Name Value Range Interpretation Code Description Data Larissa rce(s) Supporting Document(s) hepatitis C virus cy index 0.1 index <0.8 Hepatiti s C Virus Cy Index JOHANA ([facility]) ID Date Data Source [id number] 10/26/2020 11:30:00 AM EST ELLSTON ([facility]) Name Value Range Interpretation Code Description Data Larissa rce(s) Supporting Document(s) creatinine for GFR 0.94 mg/dL 0.55-1.30 Creatinine for GF R ELLSTON ([facility]) blood urea nitrogen 15 mg/dL 7-18 Blood Urea Nitro gen ELLSTON ([facility]) glucose, fasting 102 mg/dL 70-100 Above high normal Glucose, Fas ting JOHANA ([facility]) glomerular filtration rate > 60.0 >60 Glomerula r Filtration Rate JOHANA ([facility]) sodium level 142 mEq/L 136-145 Sodium Level JOHANA (No [facility]) potassium serum 3.9 mEq/L 3.5-5.1 Potassium Serum ATHE NA ([facility]) chloride level 106 mEq/L 98-107 Chloride Level JOHANA ([facility]) anion gap 7 mEq/L 8-16 Below low normal Anion Gap JOHANA ( [facility]) carbon dioxide level 29 mEq/L 21-32 Carbon Dioxide Level JOHANA ([facility]) calcium level 9.3 mg/dL 8.5-10.1 Calcium Level JOHANA ( [facility]) ALT/SGPT 18 U/L 12-78 ALT/SGPT JOHANA ([facility]) alkaline phosphatase 72 U/L 45-117 Alkaline Phosph atase JOHANA ([facility]) AST/SGOT 11 U/L 7-37 AST/SGOT JOHANA ([facility]) bilirubin,total 0.3 mg/dL 0.2-1.0 Bilirubin,total ATHE ([facility]) albumin/globulin ratio 1.2-2.2 Below low normal Albumin /globulin Ratio JOHANA ([facility]) albumin 3.7 gm/dL 3.2-5.2 Albumin JOHANA ([facility]) total protein 7.0 gm/dL 6.4-8.2 Total Protein JOHANA ( [facility]) ID Date Data Source [id number] 10/26/2020 11:30:00 AM EST JOHANA ([facility]) Name Value Range Interpretation Code Description Data Larissa rce(s) Supporting Document(s) triglycerides level 216 mg/dL <150 Above high normal Triglycer ides Level JOHANA ([facility]) HDL cholesterol 39 mg/dL >40 Below low normal HDL Cholestero l JOHANA ([facility]) cholesterol level 195 mg/dL <200 Cholesterol Level JOHANA ([facility]) cholesterol risk ratio <5 Cholesterol R isk Ratio JOHANA ([facility]) non-HDL-C 156 mg/dL Non-hdl-c JOHANA ([facility]) Cholesterol in LDL [Mass/volume] in Serum or Plasma 113 mg/dL <100 Above high normal LDL Cholesterol JOHANA ([facility]) ID Date Data Source [id number] 10/26/2020 11:30:00 AM EST JOHANA ([facility]) Name Value Range Interpretation Code Description Data Larissa rce(s) Supporting Document(s) hepatitis C virus cy index 0.1 index <0.8 Hepatiti s C Virus Cy Index JOHANA ([facility]) ID Date Data Source [id number] 10/26/2020 11:30:00 AM EST JOHANA ([facility]) Name Value Range Interpretation Code Description Data Larissa rce(s) Supporting Document(s) glucose, fasting 102 mg/dL 70-100 Above high normal Glucose, Fas ting JOHANA ([facility]) blood urea nitrogen 15 mg/dL 7-18 Blood Urea Nitro gen JOHANA ([facility]) creatinine for GFR 0.94 mg/dL 0.55-1.30 Creatinine for GF R JOHANA ([facility]) glomerular filtration rate > 60.0 >60 Glomerula r Filtration Rate JOHANA ([facility]) sodium level 142 mEq/L 136-145 Sodium Level JOHANA (No [facility]) potassium serum 3.9 mEq/L 3.5-5.1 Potassium Serum ATHE NA ([facility]) chloride level 106 mEq/L 98-107 Chloride Level JOHANA ([facility]) anion gap 7 mEq/L 8-16 Below low normal Anion Gap JOHANA ( [facility]) carbon dioxide level 29 mEq/L 21-32 Carbon Dioxide Level JOHANA ([facility]) AST/SGOT 11 U/L 7-37 AST/SGOT JOHANA ([facility]) ALT/SGPT 18 U/L 12-78 ALT/SGPT JOHANA ([facility]) calcium level 9.3 mg/dL 8.5-10.1 Calcium Level JOHANA ( [facility]) bilirubin,total 0.3 mg/dL 0.2-1.0 Bilirubin,total ATHE NA ([facility]) total protein 7.0 gm/dL 6.4-8.2 Total Protein JOHANA ( [facility]) alkaline phosphatase 72 U/L 45-117 Alkaline Phosph atase JOHANA ([facility]) albumin/globulin ratio 1.2-2.2 Below low normal Albumin /globulin Ratio JOHANA ([facility]) albumin 3.7 gm/dL 3.2-5.2 Albumin JOHANA ([facility]) ID Date Data Source [id number] 10/26/2020 11:30:00 AM EST JOHANA ([facility]) Name Value Range Interpretation Code Description Data Larissa rce(s) Supporting Document(s) HIV 1&2 screen centaur negative negative HIV 1&2 Scree n Centaur JOHANA ([facility]) ID Date Data Source [id number] 10/26/2020 11:30:00 AM EST JOHANA ([facility]) Name Value Range Interpretation Code Description Data Larissa rce(s) Supporting Document(s) thyroid stimulating hormone 2.170 uIU/mL 0.358-3.740 Thyroid Stimulating Hormone JOHANA ([facility]) ID Date Data Source [id number] 10/26/2020 11:30:00 AM EST JOHANA ([facility]) Name Value Range Interpretation Code Description Data Larissa rce(s) Supporting Document(s) cholesterol level 195 mg/dL <200 Cholesterol Level JOHANA ([facility]) triglycerides level 216 mg/dL <150 Above high normal Triglycer ides Level JOHANA ([facility]) HDL cholesterol 39 mg/dL >40 Below low normal HDL Cholestero l JOHANA ([facility]) cholesterol risk ratio <5 Cholesterol R isk Ratio JOHANA ([facility]) Cholesterol in LDL [Mass/volume] in Serum or Plasma 113 mg/dL <100 Above high normal LDL Cholesterol JOHANA ([facility]) non-HDL-C 156 mg/dL Non-hdl-c JOHANA ([facility]) ID Date Data Source [id number] 10/26/2020 11:30:00 AM EST JOHANA ([facility]) Name Value Range Interpretation Code Description Data Larissa rce(s) Supporting Document(s) hepatitis C virus cy index 0.1 index <0.8 Hepatiti s C Virus Cy Index JOHANA ([facility]) ID Date Data Source [id number] 10/26/2020 11:30:00 AM EST JOHANA ([facility]) Name Value Range Interpretation Code Description Data Larissa rce(s) Supporting Document(s) glucose, fasting 102 mg/dL 70-100 Above high normal Glucose, Fas ting JOHANA ([facility]) blood urea nitrogen 15 mg/dL 7-18 Blood Urea Nitro gen JOHANA ([facility]) glomerular filtration rate > 60.0 >60 Glomerula r Filtration Rate JOHANA ([facility]) creatinine for GFR 0.94 mg/dL 0.55-1.30 Creatinine for GF R JOHANA ([facility]) sodium level 142 mEq/L 136-145 Sodium Level JOHANA ([facility]) potassium serum 3.9 mEq/L 3.5-5.1 Potassium Serum ATHE NA ([facility]) chloride level 106 mEq/L 98-107 Chloride Level JOHANA ([facility]) carbon dioxide level 29 mEq/L 21-32 Carbon Dioxide Level JOHANA ([facility]) AST/SGOT 11 U/L 7-37 AST/SGOT JOHANA ([facility]) calcium level 9.3 mg/dL 8.5-10.1 Calcium Level JOHANA ( [facility]) anion gap 7 mEq/L 8-16 Below low normal Anion Gap JOHANA ( [facility]) bilirubin,total 0.3 mg/dL 0.2-1.0 Bilirubin,total ATHE NA ([facility]) alkaline phosphatase 72 U/L 45-117 Alkaline Phosph atase JOHANA ([facility]) ALT/SGPT 18 U/L 12-78 ALT/SGPT JOHANA ([facility]) albumin 3.7 gm/dL 3.2-5.2 Albumin JOHANA ([facility]) total protein 7.0 gm/dL 6.4-8.2 Total Protein JOHANA ( [facility]) albumin/globulin ratio 1.2-2.2 Below low normal Albumin /globulin Ratio JOHANA ([facility]) ID Date Data Source [id number] 10/26/2020 11:30:00 AM EST JOHANA ([facility]) Name Value Range Interpretation Code Description Data Larissa rce(s) Supporting Document(s) HIV 1&2 screen centaur negative negative HIV 1&2 Scree n Centaur JOHANA ([facility]) ID Date Data Source [id number] 10/26/2020 11:30:00 AM EST JOHANA ([facility]) Name Value Range Interpretation Code Description Data Larissa rce(s) Supporting Document(s) thyroid stimulating hormone 2.170 uIU/mL 0.358-3.740 Thyroid Stimulating Hormone JOHANA ([facility]) ID Date Data Source [id number] 10/26/2020 11:30:00 AM EST JOHANA ([facility]) Name Value Range Interpretation Code Description Data Larissa rce(s) Supporting Document(s) cholesterol level 195 mg/dL <200 Cholesterol Level JOHANA ([facility]) triglycerides level 216 mg/dL <150 Above high normal Triglycer ides Level JOHANA ([facility]) cholesterol risk ratio <5 Cholesterol R isk Ratio JOHANA ([facility]) Cholesterol in LDL [Mass/volume] in Serum or Plasma 113 mg/dL <100 Above high normal LDL Cholesterol JOHANA ([facility]) non-HDL-C 156 mg/dL Non-hdl-c JOHANA ([facility]) HDL cholesterol 39 mg/dL >40 Below low normal HDL Cholestero l JOHANA ([facility]) ID Date Data Source [id number] 10/26/2020 11:30:00 AM EST JOHANA ([facility]) Name Value Range Interpretation Code Description Data Larissa rce(s) Supporting Document(s) hepatitis C virus cy index 0.1 index <0.8 Hepatiti s C Virus Cy Index JOHANA ([facility]) ID Date Data Source [id number] 10/26/2020 11:30:00 AM EST [place] ([facility]) Name Value Range Interpretation Code Description Data Larissa rce(s) Supporting Document(s) glucose, fasting 102 mg/dL 70-100 Above high normal Glucose, Fas ting JOHANA ([facility]) blood urea nitrogen 15 mg/dL 7-18 Blood Urea Nitro gen JOHANA ([facility]) creatinine for GFR 0.94 mg/dL 0.55-1.30 Creatinine for GF R JOHANA ([facility]) sodium level 142 mEq/L 136-145 Sodium Level JOHANA ([facility]) glomerular filtration rate > 60.0 >60 Glomerula r Filtration Rate JOHANA ([facility]) potassium serum 3.9 mEq/L 3.5-5.1 Potassium Serum ATH NA ([facility]) chloride level 106 mEq/L 98-107 Chloride Level JOHANA ([facility]) carbon dioxide level 29 mEq/L 21-32 Carbon Dioxide Level JOHANA ([facility]) anion gap 7 mEq/L 8-16 Below low normal Anion Gap JOHANA ( [facility]) calcium level 9.3 mg/dL 8.5-10.1 Calcium Level JOHANA ( [facility]) alkaline phosphatase 72 U/L 45-117 Alkaline Phosph atase JOHANA ([facility]) ALT/SGPT 18 U/L 12-78 ALT/SGPT JOHANA ([facility]) AST/SGOT 11 U/L 7-37 AST/SGOT JOHANA ([facility]) bilirubin,total 0.3 mg/dL 0.2-1.0 Bilirubin,total ATHE NA ([facility]) albumin 3.7 gm/dL 3.2-5.2 Albumin JOHANA ([facility]) total protein 7.0 gm/dL 6.4-8.2 Total Protein JOHANA ( [facility]) albumin/globulin ratio 1.2-2.2 Below low normal Albumin /globulin Ratio JOHANA ([facility]) ID Date Data Source [id number] 10/26/2020 11:30:00 AM EST JOHANA ([facility]) Name Value Range Interpretation Code Description Data Larissa rce(s) Supporting Document(s) HIV 1&2 screen centaur negative negative HIV 1&2 Scree n Centaur JOHANA ([facility]) ID Date Data Source [id number] 10/26/2020 11:30:00 AM EST JOHANA ([facility]) Name Value Range Interpretation Code Description Data Larissa rce(s) Supporting Document(s) thyroid stimulating hormone 2.170 uIU/mL 0.358-3.740 Thyroid Stimulating Hormone JOHANA ([facility]) ID Date Data Source [id number] 07/26/2020 10:00:00 AM EST [facility] Name Value Range Interpretation Code Description Data Larissa rce(s) Supporting Document(s) SARS coronavirus 2 RNA [facility] This lab was ordered by [facility] and reported by [facility]. ID Date Data Source [id number] 06/21/2020 09:40:00 AM EDT [facility] Name Value Range Interpretation Code Description Data Larissa rce(s) Supporting Document(s) SARS coronavirus 2 RNA [facility] This lab was ordered by [facility] and reported by [facility]. ID Date Data Source [id number] 06/19/2020 10:58:25 AM EDT [facility] Measurements & CalculationsHeight: 65 inches (5 ft. [...] during this visit, including review of any [id number] medications, herbal therapies, and/or supplements.Allergy ReviewAllergy List [...] joint enlargement or tendernessFoot Inspection, Left: left fish tender on palpation. no redness. no pitting edema noted. Skin, Inspection: no rashes, lesions, or ulcerationsOrientation: oriented to time, place, and personMood & Affect: no depression, anxiety, or agitationJudgment & Insight: intactCare Management Plan Transitions of CareInboundRate Your HealthIn general, would you say your health is? PoorAssessment & Plan Problems:Added: Pain in left foot (ICD-729.5) (DTM13-U86.672) Assessment: Instructions: Please take Tylenol as needed [...] Elec tronicAllergies:PREDNISONE (Severe)* TRAZADONE (Severe)PENICILLIN (Moderate)Orders:Podiatry Consult [CPT-79005] Adult - Ofc Vst, EST, Level III [CPT-88111] Follow-Up Return to clinic: as scheduled and as needed Clinical Visit Summary CompletedMedications:ACETAMINOPHEN 500 MG ORAL TABLET (ACETAMINOPHEN) take two tablets by mouth three times daily as needed #60[Tablet] x 0 Route:ORAL Entered and Authorized by: Kate CRYSTAL Method used: Electronically to [id number] (retail) [address] [place] [address] Ph: Note to Pharmacy: Route: ORAL; Indications: PAIN IN LEFT FOOT RxID: [id number] signed by Kate CRYSTAL on 06/19/2020 at 12:10 PM Name Value Range Interpretation Code Description Data Larissa rce(s) Supporting Document(s) Procedure Social History Code Duration Value Status Description Data Source(s ) Smoking 05/25/2021 12:00:00 AM EDT Never Smoker completed Never S trupti eCW1 ([facility]) Smoking 05/25/2021 12:00:00 AM EDT Never Smoker completed Never S moker eCW1 ([facility]) Smoking 05/25/2021 12:00:00 AM EDT Never Smoker completed Never S moker eCW1 ([facility]) Smoking 04/30/2021 12:00:00 AM EDT Never Smoker completed Never S moker eCW1 ([facility]) Smoking 04/10/2021 12:00:00 AM EDT Never Smoker completed Never S moker eCW1 ([facility]) Smoking 04/10/2021 12:00:00 AM EDT Never Smoker completed Never S moker eCW1 ([facility]) Smoking 04/10/2021 12:00:00 AM EDT Never Smoker completed Never S moker eCW1 ([facility]) Smoking 04/10/2021 12:00:00 AM EDT Never Smoker completed Never S moker eCW1 ([facility]) Smoking 03/09/2021 12:00:00 AM EDT Never Smoker completed Never S moker eCW1 ([facility]) Smoking 01/15/2021 12:00:00 AM EDT Never Smoker completed Never S moker eCW1 ([facility]) Smoking 01/15/2021 12:00:00 AM EDT Never Smoker completed Never S moker eCW1 ([facility]) Smoking 11/27/2020 12:00:00 AM EDT Never Smoker completed Never S moker eCW1 ([facility]) Smoking 11/16/2020 12:00:00 AM EST Never Smoker completed Never S moker eCW1 ([facility]) Smoking 10/25/2020 12:00:00 AM EST Unknown if ever smoked comp leted Unknown if ever smoked [facility] ([facility]) Smoking 09/29/2020 12:00:00 AM EST Never Smoker completed Never S moker eCW1 ([facility]) Smoking 09/29/2020 12:00:00 AM EST Never Smoker completed Never S moker eCW1 ([facility]) Smoking 09/29/2020 12:00:00 AM EST Never Smoker completed Never S moker eCW1 ([facility]) Smoking 09/11/2020 12:00:00 AM EST Unknown if ever smoked comp leted Unknown if ever smoked [facility] ([facility]) Smoking 08/17/2020 12:00:00 AM EST Unknown if ever smoked comp leted Unknown if ever smoked [facility] ([facility]) Smoking 07/31/2020 12:00:00 AM EST Never Smoker completed Never S moker eCW1 ([facility]) Smoking 07/31/2020 12:00:00 AM EST Never Smoker completed Never S moker eCW1 ([facility]) Smoking 07/31/2020 12:00:00 AM EST Never Smoker completed Never S moker eCW1 ([facility]) Smoking 07/10/2020 12:00:00 AM EDT Unknown if ever smoked comp leted Unknown if ever smoked [facility] ([facility]) Smoking 06/22/2020 12:00:00 AM EDT Never Smoker completed Never S moker eCW1 ([facility]) Smoking 06/19/2020 12:00:00 AM EDT Unknown if ever smoked comp leted Unknown if ever smoked [facility] ([facility]) Smoking 06/15/2020 12:00:00 AM EDT Unknown if ever smoked comp leted Unknown if ever smoked [facility] ([facility]) Vital Signs ID Date Data Source [id number] Name Value Range Interpretation Code Description Data Source(s) Diastolic blood pressure 89 mm[Hg] 89 mm[Hg] JOHANA ([facility]) Body height 65 [in_i] 65 [in_i] JOHANA ([facility]) Body mass index (BMI) [Ratio] 41.1 kg/m2 41.1 k g/m2 JOHANA ([facility]) Systolic blood pressure 136 mm[Hg] 136 mm[Hg] Ricardo RAZO ([facility]) Body weight 3954 [oz_av] 3954 [oz_av] JOHANA ([facility]) Body height 65 [in_i] 65 [in_i] JOHANA ([facility]) Body height 65 [in_i] 65 [in_i] JOHANA ([facility]) Body weight 256 [lb_av] 256 [lb_av] eCW1 ([facility]) Body weight 116.12 kg 116.12 kg eCW1 ([facility]) Body height [in_i] eCW1 ([facility]) Body mass index (BMI) [Ratio] 42.60 kg/m2 42.60 kg/m2 eCW1 ([facility]) Heart rate 78 /min 78 /min eCW1 ([facility]) Respiratory rate 17 /min 17 /min eCW1 ([facility]) Body temperature 95.5 [degF] 95.5 [degF] eCW1 ( [facility]) Systolic blood pressure 112 mm[Hg] 112 mm[Hg] e CW1 ([facility]) Diastolic blood pressure 64 mm[Hg] 64 mm[Hg] eCW1 ([facility]) Diastolic blood pressure 73 mm[Hg] 73 mm[Hg] JOHANA ([facility]) Body height 65 [in_i] 65 [in_i] JOHANA ([facility]) Body mass index (BMI) [Ratio] 42.6 kg/m2 42.6 k g/m2 JOHANA ([facility]) Systolic blood pressure 124 mm[Hg] 124 mm[Hg] A THENA ([facility]) Body weight 4100 [oz_av] 4100 [oz_av] JOHANA ([facility]) Diastolic blood pressure 73 mm[Hg] 73 mm[Hg] JOHANA ([facility]) Body height 65 [in_i] 65 [in_i] JOHANA ([facility]) Body mass index (BMI) [Ratio] 42.6 kg/m2 42.6 k g/m2 JOHANA ([facility]) Systolic blood pressure 124 mm[Hg] 124 mm[Hg] A THENA ([facility]) Body weight 4100 [oz_av] 4100 [oz_av] JOHANA ([facility]) Diastolic blood pressure 73 mm[Hg] 73 mm[Hg] JOHANA ([facility]) Body height 65 [in_i] 65 [in_i] JOHANA ([facility]) Body mass index (BMI) [Ratio] 42.6 kg/m2 42.6 k g/m2 JOHANA ([facility]) Systolic blood pressure 124 mm[Hg] 124 mm[Hg] A THENA ([facility]) Body weight 4100 [oz_av] 4100 [oz_av] JOHANA ([facility] [place] Diastolic blood pressure 73 mm[Hg] 73 mm[Hg] JOHANA ([facility]) Body height 65 [in_i] 65 [in_i] JOHANA ([facility]) Body mass index (BMI) [Ratio] 42.6 kg/m2 42.6 k g/m2 JOHANA ([facility]) Systolic blood pressure 124 mm[Hg] 124 mm[Hg] A THENA ([facility]) Body weight 4100 [oz_av] 4100 [oz_av] JOHANA ([facility]) Diastolic blood pressure 73 mm[Hg] 73 mm[Hg] JOHANA ([facility]) Body height 65 [in_i] 65 [in_i] JOHANA ([facility]) Body mass index (BMI) [Ratio] 42.6 kg/m2 42.6 k g/m2 JOHANA ([facility]) Systolic blood pressure 124 mm[Hg] 124 mm[Hg] A THENA ([facility]) Body weight 4100 [oz_av] 4100 [oz_av] JOHANA ([facility]) Body weight 256 [lb_av] 256 [lb_av] eCW1 ([facility]) Body weight 116.12 kg 116.12 kg eCW1 ([facility]) Body height [in_i] eCW1 ([facility]) Body mass index (BMI) [Ratio] 42.6 kg/m2 42.6 k g/m2 eCW1 ([facility]) Systolic blood pressure 124 mm[Hg] 124 mm[Hg] e CW1 ([facility]) Diastolic blood pressure 76 mm[Hg] 76 mm[Hg] eCW1 ([facility]) Body weight 265 [lb_av] 265 [lb_av] eCW1 ([facility]) Body height [in_i] eCW1 ([facility]) Body mass index (BMI) [Ratio] 44.09 kg/m2 44.09 kg/m2 eCW1 ([facility]) Heart rate 71 /min 71 /min eCW1 ([facility]) Respiratory rate 18 /min 18 /min eCW1 ([facility]) Body temperature 97.6 [degF] 97.6 [degF] eCW1 ( [facility]) Systolic blood pressure 165 mm[Hg] 165 mm[Hg] e CW1 ([facility]) Diastolic blood pressure 103 mm[Hg] 103 mm[Hg] eCW1 ([facility]) Diastolic blood pressure 104 mm[Hg] 104 mm[Hg] JOHANA ([facility]) Body mass index (BMI) [Ratio] 44.8 kg/m2 44.8 k g/m2 JOHANA ([facility]) Systolic blood pressure 163 mm[Hg] 163 mm[Hg] A [facility] ([facility]) Body height 65 [in_i] 65 [in_i] JOHANA ([facility]) Body weight 4306 [oz_av] 4306 [oz_av] JOHANA ([facility]) Diastolic blood pressure 104 mm[Hg] 104 mm[Hg] JOHANA ([facility]) Body height 65 [in_i] 65 [in_i] JOHANA ([facility]) Body mass index (BMI) [Ratio] 44.8 kg/m2 44.8 k g/m2 JOHANA ([facility]) Systolic blood pressure 163 mm[Hg] 163 mm[Hg] A [facility] ([facility]) Body weight 4306 [oz_av] 4306 [oz_av] JOHANA ([facility]) Diastolic blood pressure 104 mm[Hg] 104 mm[Hg] JOHANA ([facility]) Body height 65 [in_i] 65 [in_i] JOHANA ([facility]) Body mass index (BMI) [Ratio] 44.8 kg/m2 44.8 k g/m2 JOHANA ([facility]) Systolic blood pressure 163 mm[Hg] 163 mm[Hg] A THENA ([facility]) Body weight 4306 [oz_av] 4306 [oz_av] JOHANA ([facility]) Diastolic blood pressure 104 mm[Hg] 104 mm[Hg] JOHANA ([facility]) Body height 65 [in_i] 65 [in_i] JOHANA ([facility]) Body mass index (BMI) [Ratio] 44.8 kg/m2 44.8 k g/m2 JOHANA ([facility]) Systolic blood pressure 163 mm[Hg] 163 mm[Hg] A THENA ([facility]) Body weight 4306 [oz_av] 4306 [oz_av] JOHANA ([facility]) Diastolic blood pressure 104 mm[Hg] 104 mm[Hg] JOHANA ([facility]) Body height 65 [in_i] 65 [in_i] JOHANA ([facility]) Body mass index (BMI) [Ratio] 44.8 kg/m2 44.8 k g/m2 JOHANA ([facility]) Systolic blood pressure 163 mm[Hg] 163 mm[Hg] A THENA ([facility]) Body weight 4306 [oz_av] 4306 [oz_av] JOHANA ([facility]) Body height 65 [in_i] 65 [in_i] JOHANA ([facility]) Body height 65 [in_i] 65 [in_i] JOHANA ([facility]) Body height 65 [in_i] 65 [in_i] JOHANA ([facility]) Body height 65 [in_i] 65 [in_i] JOHANA ([facility]) Body height 65 [in_i] 65 [in_i] JOHANA ([facility]) Body height 65 [in_i] 65 [in_i] JOHANA ([facility]) Diastolic blood pressure 81 mm[Hg] 81 mm[Hg] JOHANA ([facility]) Body height 65 [in_i] 65 [in_i] JOHANA ([facility]) Body mass index (BMI) [Ratio] 43.9 kg/m2 43.9 k g/m2 JOHANA ([facility]) Systolic blood pressure 127 mm[Hg] 127 mm[Hg] [facility] Body weight 4224 [oz_av] 4224 [oz_av] JOHANA ([facility]) Diastolic blood pressure 81 mm[Hg] 81 mm[Hg] JOHANA ([facility]) Body height 65 [in_i] 65 [in_i] JOHANA ([facility]) Body mass index (BMI) [Ratio] 43.9 kg/m2 43.9 k g/m2 JOHANA ([facility]) Body weight 4224 [oz_av] 4224 [oz_av] JOHANA ([facility]) Systolic blood pressure 127 mm[Hg] 127 mm[Hg] A [facility] ([facility]) Body height 65 [in_i] 65 [in_i] JOHANA ([facility]) Diastolic blood pressure 81 mm[Hg] 81 mm[Hg] JOHANA ([facility]) Body mass index (BMI) [Ratio] 43.9 kg/m2 43.9 k g/m2 JOHANA ([facility]) Systolic blood pressure 127 mm[Hg] 127 mm[Hg] [facility] Body weight 4224 [oz_av] 4224 [oz_av] JOHANA ([facility]) Diastolic blood pressure 81 mm[Hg] 81 mm[Hg] JOHANA ([facility]) Body height 65 [in_i] 65 [in_i] JOHANA ([facility]) Body mass index (BMI) [Ratio] 43.9 kg/m2 43.9 k g/m2 JOHANA ([facility]) Systolic blood pressure 127 mm[Hg] 127 mm[Hg] A [facility] ([facility]) Body weight 4224 [oz_av] 4224 [oz_av] JOHANA ([facility]) Diastolic blood pressure 81 mm[Hg] 81 mm[Hg] JOHANA ([facility]) Body height 65 [in_i] 65 [in_i] JOHANA ([facility]) Body mass index (BMI) [Ratio] 43.9 kg/m2 43.9 k g/m2 JOHANA ([facility]) Systolic blood pressure 127 mm[Hg] 127 mm[Hg] A THENA ([facility]) Body weight 4224 [oz_av] 4224 [oz_av] JOHANA ([facility]) Diastolic blood pressure 81 mm[Hg] 81 mm[Hg] JOHANA ([facility]) Body height 65 [in_i] 65 [in_i] JOHANA ([facility]) Body mass index (BMI) [Ratio] 43.9 kg/m2 43.9 k g/m2 JOHANA ([facility]) Systolic blood pressure 127 mm[Hg] 127 mm[Hg] A THENA ([facility]) Body weight 4224 [oz_av] 4224 [oz_av] JOHANA ([facility]) Diastolic blood pressure 81 mm[Hg] 81 mm[Hg] JOHANA ([facility]) Body height 65 [in_i] 65 [in_i] JOHANA ([facility]) Body mass index (BMI) [Ratio] 43.9 kg/m2 43.9 k g/m2 JOHANA ([facility]) Systolic blood pressure 127 mm[Hg] 127 mm[Hg] A THENA ([facility]) Body weight 4224 [oz_av] 4224 [oz_av] JOHANA ([facility]) Body temperature 97.1 [degF] 97.1 [degF] MEDENT ([facility] ) Body height 66 [in_i] 66 [in_i] MEDENT ([facility]) 5'6" Body weight 257.00 [lb_av] 257.00 [lb_av] MEDEN T ([facility]) Body mass index (BMI) [Ratio] 41.5 kg/m2 41.5 k g/m2 MEDENT ([facility]) Body mass index (BMI) [Ratio] 42.2 kg/m2 42.2 k g/m2 MEDENT ([facility]) Body temperature 97.5 [degF] 97.5 [degF] MEDENT ([facility]) Body height 66.75 [in_i] 66.75 [in_i] MEDENT ([facility]) 5'6.75" Body weight 267.38 [lb_av] 267.38 [lb_av] LINDA T ([facility]) Body height 65 [in_i] 65 [in_i] JOHANA ([facility]) Body mass index (BMI) [Ratio] 45.3 kg/m2 45.3 k g/m2 JOHANA ([facility]) Systolic blood pressure 153 mm[Hg] 153 mm[Hg] A THENA ([facility]) Body weight 4358.4 [oz_av] 4358.4 [oz_av] ATHEN A ([facility]) Diastolic blood pressure 88 mm[Hg] 88 mm[Hg] JOHANA ([facility]) Body height 65 [in_i] 65 [in_i] JOHANA ([facility]) Body mass index (BMI) [Ratio] 45.3 kg/m2 45.3 k g/m2 JOHANA ([facility]) Body weight 4358.4 [oz_av] 4358.4 [oz_av] ATHEN A ([facility]) Diastolic blood pressure 88 mm[Hg] 88 mm[Hg] JOHANA ([facility]) Systolic blood pressure 153 mm[Hg] 153 mm[Hg] A THENA ([facility]) Body mass index (BMI) [Ratio] 45.3 kg/m2 45.3 k g/m2 JOHANA ([facility]) Diastolic blood pressure 88 mm[Hg] 88 mm[Hg] JOHANA ([facility]) Body height 65 [in_i] 65 [in_i] JOHANA ([facility]) Body weight 4358.4 [oz_av] 4358.4 [oz_av] ATHEN A ([facility]) Systolic blood pressure 153 mm[Hg] 153 mm[Hg] A THENA ([facility]) Diastolic blood pressure 88 mm[Hg] 88 mm[Hg] JOHANA ([facility]) Body height 65 [in_i] 65 [in_i] JOHANA ([facility]) Body mass index (BMI) [Ratio] 45.3 kg/m2 45.3 k g/m2 JOHANA ([facility]) Systolic blood pressure 153 mm[Hg] 153 mm[Hg] A FIFIA ([facility]) Body weight 4358.4 [oz_av] 4358.4 [oz_av] ATHEN A ([facility]) Diastolic blood pressure 88 mm[Hg] 88 mm[Hg] JOHANA ([facility]) Body height 65 [in_i] 65 [in_i] JOHANA ([facility]) Body mass index (BMI) [Ratio] 45.3 kg/m2 45.3 k g/m2 JOHANA ([facility]) Systolic blood pressure 153 mm[Hg] 153 mm[Hg] A DUNG ([facility]) Body weight 4358.4 [oz_av] 4358.4 [oz_av] ATHEN A ([facility]) Diastolic blood pressure 88 mm[Hg] 88 mm[Hg] JOHANA ([facility]) Body height 65 [in_i] 65 [in_i] JOHANA ([facility]) Body mass index (BMI) [Ratio] 45.3 kg/m2 45.3 k g/m2 JOHANA ([facility]) Systolic blood pressure 153 mm[Hg] 153 mm[Hg] A DUNG ([facility]) Body weight 4358.4 [oz_av] 4358.4 [oz_av] ATHEN A ([facility]) Diastolic blood pressure 88 mm[Hg] 88 mm[Hg] JOHANA ([facility]) Body height 65 [in_i] 65 [in_i] JOHANA ([facility]) Body mass index (BMI) [Ratio] 45.3 kg/m2 45.3 k g/m2 JOHANA ([facility]) Systolic blood pressure 153 mm[Hg] 153 mm[Hg] A THENA ([facility]) Body weight 4358.4 [oz_av] 4358.4 [oz_av] ATHEN A ([facility]) Diastolic blood pressure 88 mm[Hg] 88 mm[Hg] JOHANA ([facility]) Body height 65 [in_i] 65 [in_i] JOHANA ([facility]) Body mass index (BMI) [Ratio] 45.3 kg/m2 45.3 k g/m2 JOHANA ([facility]) Systolic blood pressure 153 mm[Hg] 153 mm[Hg] A THENA ([facility]) Body weight 4358.4 [oz_av] 4358.4 [oz_av] ATHEN A ([facility]) Body weight 258.2 [lb_av] 258.2 [lb_av] eCW1 ([facility]) Body height [in_i] eCW1 ([facility]) Body mass index (BMI) [Ratio] 42.96 kg/m2 42.96 kg/m2 eCW1 ([facility]) Heart rate 77 /min 77 /min eCW1 ([facility]) Respiratory rate 18 /min 18 /min eCW1 ([facility]) Body temperature 96.2 [degF] 96.2 [degF] eCW1 ( [facility]) Systolic blood pressure 138 mm[Hg] 138 mm[Hg] e CW1 ([facility]) Diastolic blood pressure 87 mm[Hg] 87 mm[Hg] eCW1 ([facility]) Body height 65 [in_i] 65 [in_i] KAMILLE ([facility], ) 5'5" Body weight 260.00 [lb_av] 260.00 [lb_av] MEDEN T ([facility], ) Body mass index (BMI) [Ratio] 43.3 kg/m2 43.3 k g/m2 MEDDIONNE ([facility], ) [place] body weight 125 [lb_av] 125 [lb_av] MEDEN T ([facility], ) Body weight 117.936 kg 117.936 kg [facility], ) Body surface area Derived from formula 2.21 m2 2.21 m2 [facility], ) Body weight 260 [lb_av] 260 [lb_av] eCW1 ([facility]) Body weight 117.93 kg 117.93 kg eCW1 ([facility]) Body height [in_i] eCW1 ([facility]) Body mass index (BMI) [Ratio] 43.26 kg/m2 43.26 kg/m2 eCW1 ([facility]) Systolic blood pressure 130 mm[Hg] 130 mm[Hg] e CW1 ([facility]) Diastolic blood pressure 84 mm[Hg] 84 mm[Hg] eCW1 ([facility]) Diastolic blood pressure 84 mm[Hg] 84 mm[Hg] JOHANA ([facility]) Body height 65 [in_i] 65 [in_i] JOHANA ([facility]) Body mass index (BMI) [Ratio] 42.9 kg/m2 42.9 k g/m2 JOHANA ([facility]) Systolic blood pressure 126 mm[Hg] 126 mm[Hg] A THENA ([facility]) Body weight 4128 [oz_av] 4128 [oz_av] JOHANA ([facility]) Diastolic blood pressure 84 mm[Hg] 84 mm[Hg] JOHANA ([facility]) Body height 65 [in_i] 65 [in_i] JOHANA ([facility]) Body mass index (BMI) [Ratio] 42.9 kg/m2 42.9 k g/m2 JOHANA ([facility]) Systolic blood pressure 126 mm[Hg] 126 mm[Hg] A THENA ([facility]) Body weight 4128 [oz_av] 4128 [oz_av] JOHANA ([facility]) Systolic blood pressure 126 mm[Hg] 126 mm[Hg] A THENA ([facility]) Diastolic blood pressure 84 mm[Hg] 84 mm[Hg] JOHANA ([facility]) Body weight 4128 [oz_av] 4128 [oz_av] JOHANA ([facility]) Body height 65 [in_i] 65 [in_i] JOHANA ([facility]) Body mass index (BMI) [Ratio] 42.9 kg/m2 42.9 k g/m2 JOHANA ([facility]) Diastolic blood pressure 84 mm[Hg] 84 mm[Hg] JOHANA ([facility]) Body height 65 [in_i] 65 [in_i] JOHANA ([facility]) Body mass index (BMI) [Ratio] 42.9 kg/m2 42.9 k g/m2 JOHANA ([facility]) Systolic blood pressure 126 mm[Hg] 126 mm[Hg] [facility] Body weight 4128 [oz_av] 4128 [oz_av] JOHANA ([facility]) Diastolic blood pressure 84 mm[Hg] 84 mm[Hg] JOHANA ([facility]) Body height 65 [in_i] 65 [in_i] JOHANA ([facility]) Body mass index (BMI) [Ratio] 42.9 kg/m2 42.9 k g/m2 JOHANA ([facility]) Systolic blood pressure 126 mm[Hg] 126 mm[Hg] A [facility] ([facility]) Body weight 4128 [oz_av] 4128 [oz_av] JOHANA ([facility]) Diastolic blood pressure 84 mm[Hg] 84 mm[Hg] JOHANA ([facility]) Body height 65 [in_i] 65 [in_i] JOHANA ([facility]) Body mass index (BMI) [Ratio] 42.9 kg/m2 42.9 k g/m2 JOHANA ([facility]) Systolic blood pressure 126 mm[Hg] 126 mm[Hg] A THENA ([facility]) Body weight 4128 [oz_av] 4128 [oz_av] JOHANA ([facility]) Diastolic blood pressure 84 mm[Hg] 84 mm[Hg] JOHANA ([facility]) Body height 65 [in_i] 65 [in_i] JOHANA ([facility]) Body mass index (BMI) [Ratio] 42.9 kg/m2 42.9 k g/m2 JOHANA ([facility]) Systolic blood pressure 126 mm[Hg] 126 mm[Hg] A [facility] ([facility]) Body weight 4128 [oz_av] 4128 [oz_av] JOHANA ([facility]) Diastolic blood pressure 84 mm[Hg] 84 mm[Hg] JOHANA ([facility]) Body height 65 [in_i] 65 [in_i] JOHANA ([facility]) Body mass index (BMI) [Ratio] 42.9 kg/m2 42.9 k g/m2 JOHANA ([facility]) Systolic blood pressure 126 mm[Hg] 126 mm[Hg] A [facility] ([facility]) Body weight 4128 [oz_av] 4128 [oz_av] JOHANA ([facility]) Systolic blood pressure 126 mm[Hg] 126 mm[Hg] A THENA ([facility]) Body weight 4128 [oz_av] 4128 [oz_av] JOHANA ([facility]) Diastolic blood pressure 84 mm[Hg] 84 mm[Hg] JOHANA ([facility]) Body height 65 [in_i] 65 [in_i] JOHANA ([facility]) Body mass index (BMI) [Ratio] 42.9 kg/m2 42.9 k g/m2 JOHANA ([facility]) Body height 0.00 in Normal (applies to non-numeric resu lts) 0.00 in [facility] ([facility]) Body weight Measured 0.00 lbs Normal (applies to n on-numeric results) 0.00 lbs [facility] ([facility]) Body mass index (BMI) [Ratio] 0.00 kg/m2 No rmal (applies to non-numeric results) 0.00 kg/m2 [facility] ([facility]) Systolic blood pressure 0 mm[Hg] Normal (applies t o non-numeric results) 0 mm[Hg] [facility] ([facility]) Diastolic blood pressure 0 mm[Hg] Normal (applies to non-numeric results) 0 mm[Hg] [facility] ([facility]) Body weight 256 [lb_av] 256 [lb_av] eCW1 ([facility]) Body height [in_i] eCW1 ([facility]) Body mass index (BMI) [Ratio] 42.60 kg/m2 42.60 kg/m2 eCW1 ([facility]) Heart rate 98 /min 98 /min eCW1 ([facility]) Respiratory rate 16 /min 16 /min eCW1 ([facility]) Body temperature 98.1 [degF] 98.1 [degF] eCW1 ( [facility]) Systolic blood pressure 142 mm[Hg] 142 mm[Hg] e CW1 ([facility]) Diastolic blood pressure 81 mm[Hg] 81 mm[Hg] eCW1 ([facility]) Body height 0.00 in Normal (applies to non-numeric resu lts) 0.00 in [facility] ([facility]) Body weight Measured 0.00 lbs Normal (applies to n on-numeric results) 0.00 lbs [facility] ([facility]) Body mass index (BMI) [Ratio] 0.00 kg/m2 No rmal (applies to non-numeric results) 0.00 kg/m2 [facility] ([facility]) Systolic blood pressure 0 mm[Hg] Normal (applies t o non-numeric results) 0 mm[Hg] [facility] ([facility]) Diastolic blood pressure 0 mm[Hg] Normal (applies to non-numeric results) 0 mm[Hg] [facility] ([facility]) Body height 65 [in_i] 65 [in_i] MEDENT [...] Body weight 247.4 [lb_av] 247.4 [lb_av] eCW1 ([facility]) Body height [in_i] eCW1 ([facility]) Body mass index (BMI) [Ratio] 41.17 kg/m2 41.17 kg/m2 eCW1 ([facility]) Heart rate 77 /min 77 /min eCW1 ([facility]) Respiratory rate 18 /min 18 /min eCW1 ([facility]) Body temperature 96.2 [degF] 96.2 [degF] eCW1 ( [facility]) Systolic blood pressure 136 mm[Hg] 136 mm[Hg] e CW1 ([facility]) Diastolic blood pressure 86 mm[Hg] 86 mm[Hg] eCW1 ([facility]) Diastolic blood pressure 80 mm[Hg] 80 mm[Hg] [...] blood pressure 80 mm[Hg] 80 mm[Hg] JOHANA ([facility]) Body height 65 [in_i] 65 [in_i] JOHANA ([facility]) Body mass index (BMI) [Ratio] 42.09 kg/m2 42.09 kg/m2 JOHANA ([facility]) Systolic blood pressure 111 mm[Hg] 111 mm[facility]Hg] [facility] Body weight 4032 [oz_av] 4032 [oz_av] JOHANA ([facility]) Diastolic blood pressure 80 mm[Hg] 80 mm[Hg] JOHANA ([facility]) Systolic blood pressure 111 mm[Hg] 111 mm[Hg] A [facility] ([facility]) Body height 65 [in_i] 65 [in_i] JOHANA ([facility]) Body mass index (BMI) [Ratio] 42.09 kg/m2 42.09 kg/m2 JOHANA ([facility]) Body weight 4032 [oz_av] 4032 [oz_av] JOHANA ([facility]) Diastolic blood pressure 80 mm[Hg] 80 mm[Hg] JOHANA ([facility]) Body height 65 [in_i] 65 [in_i] JOHANA ([facility]) Body mass index (BMI) [Ratio] 42.09 kg/m2 42.09 kg/m2 JOHANA ([facility]) Systolic blood pressure 111 mm[Hg] 111 mm[Hg] [facility] Body weight 4032 [oz_av] 4032 [oz_av] JOHANA ([facility]) Diastolic blood pressure 80 mm[Hg] 80 mm[Hg] JOHANA ([facility]) Body height 65 [in_i] 65 [in_i] JOHANA ([facility]) Body mass index (BMI) [Ratio] 42.09 kg/m2 42.09 kg/m2 JOHANA ([facility]) Systolic blood pressure 111 mm[Hg] 111 mm[Hg] [facility] Body weight 4032 [oz_av] 4032 [oz_av] JOHANA ([facility]) Diastolic blood pressure 80 mm[Hg] 80 mm[Hg] JOHANA ([facility]) Body height 65 [in_i] 65 [in_i] JOHANA ([facility]) Body mass index (BMI) [Ratio] 42.09 kg/m2 42.09 kg/m2 JOHANA ([facility]) Systolic blood pressure 111 mm[Hg] 111 mm[Hg] A THENA ([facility]) Body weight 4032 [oz_av] 4032 [oz_av] JOHANA ([facility]) Diastolic blood pressure 80 mm[Hg] 80 mm[Hg] JOHANA ([facility]) Body height 65 [in_i] 65 [in_i] JOHANA ([facility]) Body mass index (BMI) [Ratio] 42.09 kg/m2 42.09 kg/m2 JOHANA ([facility]) Systolic blood pressure 111 mm[Hg] 111 mm[Hg] A THENA ([facility]) Body weight 4032 [oz_av] 4032 [oz_av] JOHANA ([facility]) Diastolic blood pressure 80 mm[Hg] 80 mm[Hg] JOHANA ([facility]) Body height 65 [in_i] 65 [in_i] JOHANA ([facility]) Body mass index (BMI) [Ratio] 42.09 kg/m2 42.09 kg/m2 JOHANA ([facility]) Systolic blood pressure 111 mm[Hg] 111 mm[Hg] A THENA ([facility]) Body weight 4032 [oz_av] 4032 [oz_av] JOHANA ([facility]) Diastolic blood pressure 80 mm[Hg] 80 mm[Hg] JOHANA ([facility]) Body height 65 [in_i] 65 [in_i] JOHANA ([facility]) Body mass index (BMI) [Ratio] 42.09 kg/m2 42.09 kg/m2 JOHANA ([facility]) Systolic blood pressure 111 mm[Hg] 111 mm[Hg] A THENA ([facility]) Body weight 4032 [oz_av] 4032 [oz_av] JOHANA ([facility]) Diastolic blood pressure 80 mm[Hg] 80 mm[Hg] JOHANA ([facility]) Body height 65 [in_i] 65 [in_i] JOHANA ([facility]) Body mass index (BMI) [Ratio] 42.09 kg/m2 42.09 kg/m2 JOHANA ([facility]) Systolic blood pressure 111 mm[Hg] 111 mm[Hg] Ricardo THENA ([facility]) Body weight 4032 [oz_av] 4032 [oz_av] JOHANA ([facility]) Body height 0.00 in Normal (applies to non-numeric resu lts) 0.00 in [facility] ([facility]) Body weight Measured 0.00 lbs Normal (applies to n on-numeric results) [facility] Body mass index (BMI) [Ratio] 0.00 kg/m2 No rmal (applies to non-numeric results) 0.00 [facility] Systolic blood pressure 0 mm[Hg] Normal (applies t o non-numeric results) 0 mm[Hg] [facility] ([facility]) Diastolic blood pressure 0 mm[Hg] Normal (applies to non-numeric results) 0 mm[Hg] [facility] ([facility]) Patient Treatment Plan of Care Planned Activity Planned Date Details Description Data Source (s) 24 HR mirabegron 50 MG Extended Release Oral Tablet [M yrbetriq] 05/03/2021 12:00:00 AM EDT eCW1 ([facility]) 24 HR mirabegron 50 MG Extended Release Oral Tablet [M yrbetriq] 05/03/2021 12:00:00 AM EDT eCW1 ([facility]) 24 HR mirabegron 50 MG Extended Release Oral Tablet [M yrbetriq] 05/03/2021 12:00:00 AM EDT eCW1 ([facility]) Acetaminophen 325 MG / Hydrocodone Bitartrate 5 MG Ora l Tablet 11/27/2020 12:00:00 AM EDT eCW1 ([facility]) Acetaminophen 325 MG / Hydrocodone Bitartrate 5 MG Ora l Tablet 11/27/2020 12:00:00 AM EDT eCW1 ([facility]) Acetaminophen 325 MG / Hydrocodone Bitartrate 5 MG Ora l Tablet 11/27/2020 12:00:00 AM EDT eCW1 ([facility]) Acetaminophen 325 MG / Hydrocodone Bitartrate 5 MG Ora l Tablet 11/02/2020 12:00:00 AM EST eCW1 ([facility]) Acetaminophen 325 MG / Hydrocodone Bitartrate 5 MG Ora l Tablet [Calvin] 10/12/2020 12:00:00 AM EST eCW1 ([facility]) Calvin 5-325 MG 10/12/2020 12:00:00 AM EST eCW1 ([facility]) 168 HR Buprenorphine 0.005 MG/HR Transdermal Patch [Bu Trans] 09/29/2020 12:00:00 AM EST eCW1 ([facility]) 168 HR Buprenorphine 0.005 MG/HR Transdermal Patch [Bu Trans] 09/29/2020 12:00:00 AM EST eCW1 ([facility]) 168 HR Buprenorphine 0.005 MG/HR Transdermal Patch [Bu Trans] 09/29/2020 12:00:00 AM EST eCW1 ([facility]) Hydrochlorothiazide 25 MG / Triamterene 37.5 MG Oral Tablet JOHANA ([facility]) tizanidine 4 MG Oral Tablet JOHANA ([facility]) quetiapine 50 MG Oral Tablet JOHANA ([facility]) quetiapine 100 MG Oral Tablet JOHANA ([facility]) oxcarbazepine 150 MG Oral Tablet JOHANA ([facility]) 12 HR Orphenadrine Citrate 100 MG Extended Release Oral Tablet JOHANA ([facility]) methylprednisolone 4 mg tablets in a dose pack TAKE BY MOUTH DIR ECTED JOHANA ([facility]) Levothyroxine Sodium 0.075 MG Oral Tablet JOHANA ([facility]) Lasix JOHANA ([facility]) 24 HR lamotrigine 100 MG Extended Release Oral Tablet JOHANA ([facility]) Acetaminophen 325 MG / Hydrocodone Bitartrate 5 MG Oral Tablet JOHANA ([facility]) fluticasone propionate 50 mcg/actuation nasal spray,suspension JOHANA ([facility]) Fluoxetine 10 MG Oral Capsule JOHANA ([facility]) apixaban 5 MG Oral Tablet [Eliquis] JOHANA ([facility]) Dexamethasone 4 MG Oral Tablet JOHANA ([facility]) benzonatate 100 MG Oral Capsule JOHANA ([facility]) Baclofen 10 MG Oral Tablet A THENA ([facility]) Hydrochlorothiazide 25 MG / Triamterene 37.5 MG Oral Tablet JOHANA ([facility]) tizanidine 4 MG Oral Tablet JOHANA ([facility]) quetiapine 50 MG Oral Tablet JOHANA ([facility]) oxcarbazepine 150 MG Oral Tablet JOHANA ([facility]) 12 HR Orphenadrine Citrate 100 MG Extended Release Oral Tablet JOHANA ([facility]) methylprednisolone 4 mg tablets in a dose pack TAKE BY MOUTH DIR ECTED JOHANA ([facility]) 24 HR lamotrigine 100 MG Extended Release Oral Tablet JOHANA ([facility]) Acetaminophen 325 MG / Hydrocodone Bitartrate 5 MG Oral Tablet JOHANA ([facility]) fluticasone propionate 50 mcg/actuation nasal spray,suspension JOHANA ([facility]) apixaban 5 MG Oral Tablet [Eliquis] JOHANA ([facility]) Dexamethasone 4 MG Oral Tablet JOHANA ([facility]) benzonatate 100 MG Oral Capsule JOHANA ([facility]) Baclofen 10 MG Oral Tablet A THENA ([facility]) fluticasone propionate 50 mcg/actuation nasal spray,suspension JOHANA ([facility]) apixaban 5 MG Oral Tablet [Eliquis] JOHANA ([facility]) Dexamethasone 4 MG Oral Tablet JOHANA ([facility]) benzonatate 100 MG Oral Capsule JOHANA ([facility]) Baclofen 10 MG Oral Tablet A THENA ([facility]) Hydrochlorothiazide 25 MG / Triamterene 37.5 MG Oral Tablet JOHANA ([facility]) tizanidine 4 MG Oral Tablet JOHANA ([facility]) quetiapine 50 MG Oral Tablet JOHANA ([facility]) oxcarbazepine 150 MG Oral Tablet JOHANA ([facility]) 12 HR Orphenadrine Citrate 100 MG Extended Release Oral Tablet JOHANA ([facility]) methylprednisolone 4 mg tablets in a dose pack TAKE BY MOUTH DIR ECTED JOHANA ([facility]) Levothyroxine Sodium 0.075 MG Oral Tablet JOHANA ([facility]) 24 HR lamotrigine 100 MG Extended Release Oral Tablet JOHANA ([facility]) Acetaminophen 325 MG / Hydrocodone Bitartrate 5 MG Oral Tablet JOHANA ([facility]) fluticasone propionate 50 mcg/actuation nasal spray,suspension JOHANA ([facility]) apixaban 5 MG Oral Tablet [Eliquis] JOHANA ([facility]) Dexamethasone 4 MG Oral Tablet JOHANA ([facility]) benzonatate 100 MG Oral Capsule JOHANA ([facility]) Baclofen 10 MG Oral Tablet A THENA ([facility]) tizanidine 4 MG Oral Tablet JOHANA ([facility]) quetiapine 50 MG Oral Tablet JOHANA ([facility]) oxcarbazepine 150 MG Oral Tablet JOHANA ([facility]) 24 HR lamotrigine 100 MG Extended Release Oral Tablet JOHANA ([facility]) fluticasone propionate 50 mcg/actuation nasal spray,suspension JOHANA ([facility]) Dexamethasone 4 MG Oral Tablet JOHANA ([facility]) benzonatate 100 MG Oral Capsule JOHANA ([facility]) Baclofen 10 MG Oral Tablet A THENA ([facility]) tizanidine 4 MG Oral Tablet JOHANA ([facility]) quetiapine 50 MG Oral Tablet JOHANA ([facility]) oxcarbazepine 150 MG Oral Tablet JOHANA ([facility]) 12 HR Orphenadrine Citrate 100 MG Extended Release Oral Tablet JOHANA ([facility]) methylprednisolone 4 mg tablets in a dose pack TAKE BY MOUTH DIR ECTED JOHANA ([facility]) 24 HR lamotrigine 100 MG Extended Release Oral Tablet JOHANA ([facility]) Acetaminophen 325 MG / Hydrocodone Bitartrate 5 MG Oral Tablet JOHANA ([facility]) fluticasone propionate 50 mcg/actuation nasal spray,suspension JOHANA ([facility]) apixaban 5 MG Oral Tablet [Eliquis] JOHANA ([facility]) Dexamethasone 4 MG Oral Tablet JOHANA ([facility]) benzonatate 100 MG Oral Capsule JOHANA ([facility]) Baclofen 10 MG Oral Tablet A THENA ([facility]) Hydrochlorothiazide 25 MG / Triamterene 37.5 MG Oral Tablet JOHANA ([facility]) tizanidine 4 MG Oral Tablet JOHANA ([facility]) quetiapine 50 MG Oral Tablet JOHANA ([facility]) oxcarbazepine 150 MG Oral Tablet JOHANA ([facility]) 12 HR Orphenadrine Citrate 100 MG Extended Release Oral Tablet JOHANA ([facility]) methylprednisolone 4 mg tablets in a dose pack TAKE BY MOUTH DIR ECTED JOHANA ([facility]) 24 HR lamotrigine 100 MG Extended Release Oral Tablet JOHANA ([facility]) Acetaminophen 325 MG / Hydrocodone Bitartrate 5 MG Oral Tablet JOHANA ([facility]) tizanidine 4 MG Oral Tablet JOHANA ([facility]) quetiapine 50 MG Oral Tablet JOHANA ([facility]) oxcarbazepine 150 MG Oral Tablet JOHANA ([facility]) 24 HR lamotrigine 100 MG Extended Release Oral Tablet JOHANA ([facility]) fluticasone propionate 50 mcg/actuation nasal spray,suspension JOHANA ([facility]) Dexamethasone 4 MG Oral Tablet JOHANA ([facility]) benzonatate 100 MG Oral Capsule JOHANA ([facility]) Baclofen 10 MG Oral Tablet A THENA ([facility]) Hydrochlorothiazide 25 MG / Triamterene 37.5 MG Oral Tablet JOHANA ([facility]) tizanidine 4 MG Oral Tablet JOHANA ([facility]) quetiapine 50 MG Oral Tablet JOHANA ([facility]) oxcarbazepine 150 MG Oral Tablet JOHANA ([facility]) 24 HR lamotrigine 100 MG Extended Release Oral Tablet JOHANA ([facility]) fluticasone propionate 50 mcg/actuation nasal spray,suspension JOHANA ([facility]) Dexamethasone 4 MG Oral Tablet JOHANA ([facility]) benzonatate 100 MG Oral Capsule JOHANA ([facility]) Baclofen 10 MG Oral Tablet A THENA ([facility]) tizanidine 4 MG Oral Tablet JOHANA ([facility]) quetiapine 50 MG Oral Tablet JOHANA ([facility]) oxcarbazepine 150 MG Oral Tablet JOHANA ([facility]) 24 HR lamotrigine 100 MG Extended Release Oral Tablet JOHANA ([facility]) fluticasone propionate 50 mcg/actuation nasal spray,suspension JOHANA ([facility]) Dexamethasone 4 MG Oral Tablet JOHANA ([facility]) benzonatate 100 MG Oral Capsule JOHANA ([facility]) Baclofen 10 MG Oral Tablet A THENA ([facility])
--- NOTE | 2021-08-04 19:10 | REPVR ---
PROCEDURE INFORMATION: Exam: US Duplex Left Lower Extremity Veins, Limited Exam date and time: 08/04/2021 7:00 PM Age: 41 years old Clinical indication: Pain; Leg, lower; Left; Additional info: Pain, swelling R/O dvt vs bakers cyst TECHNIQUE: Imaging protocol: Real-time Duplex ultrasound of the Left Lower Extremity with 2-D alvarado scale, color Doppler flow and spectral waveform analysis with image documentation. Limited exam focused on the left lower extremity veins. COMPARISON: US Duplex, Ext LOWER veins, bilat 04/21/2021 1:01 PM FINDINGS: Left deep veins: Unremarkable. The common femoral, femoral, proximal profunda femoral and popliteal veins are patent without thrombus. Normal Doppler waveforms. Normal compressibility and/or augmentation response. Left superficial veins: Unremarkable. Saphenofemoral junction is patent without thrombus. Soft tissues: Unremarkable. IMPRESSION: No evidence of deep vein thrombosis. Electronically signed by: Louie Campos On 08/04/2021 19:10:29 PM
[2021-08-04] MEDS ORDERED: INDO50CA91 PO (19:39)
[2021-08-04 19:40] VITALS: BP 157/82
== END 2021-08-04 19:52 | disposition home or self-care (01) ==
LOC: M ED 14:31
DX: M25.462 Effusion, left knee (principal); M17.12 Unilateral primary osteoarthritis, left knee; R22.42 Localized swelling, mass and lump, left lower limb; Z79.899 Other long term (current) drug therapy; Z88.0 Allergy status to penicillin; Z88.5 Allergy status to narcotic agent; Z88.8 Allergy status to other drugs, medicaments and biological substances

== ENCOUNTER → 2021-11-08 | Outpatient (CLI) | payer OTHER ==
[~2021-11-08] MED LIST changes: -D31000TA2 PO; +INDO50CA91 PO; +LOSA50TA28 PO; -LOSA50TA88 PO; -MONT10TA10 PO; +MONT10TA97 PO; +VITA100093 PO
== END ==
LOC: M PAIN 14:00
PROVIDERS: ATTEND Anesthesiology
DX: M50.13 Cervical disc disorder with radiculopathy, cervicothoracic region (principal); F43.10 Post-traumatic stress disorder, unspecified; E03.9 Hypothyroidism, unspecified; G43.709 Chronic migraine without aura, not intractable, without status migrainosus; F32.A Depression, unspecified; F60.3 Borderline personality disorder; M79.7 Fibromyalgia; I50.9 Heart failure, unspecified; R25.1 Tremor, unspecified; R32 Unspecified urinary incontinence; Z86.711 Personal history of pulmonary embolism; Z86.718 Personal history of other venous thrombosis and embolism; Z88.0 Allergy status to penicillin; Z88.8 Allergy status to other drugs, medicaments and biological substances

== ENCOUNTER → 2022-05-06 | Outpatient (CLI) | payer OTHER ==
[~2022-05-06] MED LIST changes: +ALBU2.5V10 INH; -ALBU83IN INH; +BUPR-71 PO; -BUPR150T5 PO; -HYZA100T2 PO; +LOSA-534 PO; -TRIA37.53 PO; +TRIA37.577 PO
== END ==
LOC: M PAIN 08:30
PROVIDERS: ATTEND Anesthesiology
DX: M48.02 Spinal stenosis, cervical region (principal); M54.12 Radiculopathy, cervical region; F43.10 Post-traumatic stress disorder, unspecified; E03.9 Hypothyroidism, unspecified; G43.709 Chronic migraine without aura, not intractable, without status migrainosus; F32.A Depression, unspecified; F60.3 Borderline personality disorder; R00.0 Tachycardia, unspecified; M79.7 Fibromyalgia; R25.1 Tremor, unspecified; I50.9 Heart failure, unspecified; R32 Unspecified urinary incontinence; H81.09 Meniere's disease, unspecified ear; Z79.890 Hormone replacement therapy; Z79.899 Other long term (current) drug therapy; Z88.0 Allergy status to penicillin; Z88.8 Allergy status to other drugs, medicaments and biological substances

== ENCOUNTER 2022-06-07 21:01 | Emergency (ER) | payer OTHER, MEDICAID ==
[2022-06-07 23:20] LABS: BASO # 0.1 10^3/uL (0.0-0.2); BASO % 0.5 % (0.0-1.0); EOS % 0.2 % (0.0-3.0); HEMATOCRIT 34.5 % (36.0-47.0); LYMPH # 0.6 10^3/uL (1.5-5.0); LYMPH % 5.6 % (24.0-44.0); MEAN CORPUSCULAR HEMOGLOBIN 28.6 pg (27.0-33.0); MEAN CORPUSCULAR HGB CONC 31.9 g/dl (32.0-36.5); MEAN CORPUSCULAR VOLUME 89.8 fl (80.0-96.0); MONO # 0.4 10^3/uL (0.0-0.8); MONO % 3.7 % (2.0-8.0); NEUTROPHILS # 9.7 10^3/uL (1.5-8.5); NEUTROPHILS % 89.5 % (36.0-66.0); PLATELET COUNT, AUTOMATED 266 10^3/uL (150-450); RED BLOOD COUNT 3.84 10^6/uL (4.00-5.40); WHITE BLOOD COUNT 10.9 10^3/uL (4.0-10.0)
[2022-06-07 23:49] LABS: ALBUMIN 3.8 GM/DL (3.2-5.2); ALT/SGPT 47 U/L (12-78); BILIRUBIN,DIRECT 0.1 MG/DL (0.0-0.2); BILIRUBIN,TOTAL 0.5 MG/DL (0.2-1.0); BLOOD UREA NITROGEN 12 MG/DL (7-18); CALCIUM LEVEL 8.9 MG/DL (8.5-10.1); CARBON DIOXIDE LEVEL 26 MEQ/L (21-32); CHLORIDE LEVEL 108 MEQ/L (98-107); CK-MB VALUE MASS 1.5 NG/ML (<3.6); CREATININE FOR GFR 0.92 MG/DL (0.55-1.30); GLOMERULAR FILTRATION RATE > 60.0 (>58); GLUCOSE, FASTING 110 MG/DL (70-100); MB/CK RELATIVE INDEX 1.18 (< OR =4); POTASSIUM SERUM 3.3 MEQ/L (3.5-5.1); SODIUM LEVEL 141 MEQ/L (136-145); TOTAL PROTEIN 6.6 GM/DL (6.4-8.2)
[2022-06-08] MEDS ORDERED: ALBUTEROL SULFATE 2.5 MG/0.5 ML INH NEB SOLN NEB ONE (01:00)
[2022-06-08] MEDS ORDERED: FUROSEMIDE 40MG/4ML VIAL (J1940) IV ONE (02:25)
[2022-06-08 03:01] VITALS: BP 159/89
== END 2022-06-08 03:03 | disposition home or self-care (01) ==
LOC: M ED 21:01 → EDBD 21:01 → M ED 06-08 03:03
DX: J45.901 Unspecified asthma with (acute) exacerbation (principal); I11.0 Hypertensive heart disease with heart failure; I50.22 Chronic systolic (congestive) heart failure; J06.9 Acute upper respiratory infection, unspecified; I25.10 Atherosclerotic heart disease of native coronary artery without angina pectoris; J45.909 Unspecified asthma, uncomplicated; F43.10 Post-traumatic stress disorder, unspecified; F32.A Depression, unspecified; F41.9 Anxiety disorder, unspecified; G43.909 Migraine, unspecified, not intractable, without status migrainosus; E03.9 Hypothyroidism, unspecified; M54.40 Lumbago with sciatica, unspecified side; H81.09 Meniere's disease, unspecified ear; E66.9 Obesity, unspecified; Z88.0 Allergy status to penicillin; Z88.8 Allergy status to other drugs, medicaments and biological substances; Z79.51 Long term (current) use of inhaled steroids; Z79.890 Hormone replacement therapy; Z79.899 Other long term (current) drug therapy
CPT/HCPCS: 71046; 80048; 80076; 82550; 82553; 83880; 84484; 85025; 87486; 87581; 87633; 87798; 93005; 93041; 94640; 94760; 96374; 99284; J1940

== ENCOUNTER 2022-06-10 07:54 | Inpatient (IN) | payer OTHER, MEDICAID ==
[~2022-06-10] VITALS: Ht 165.1 cm; Wt 105.4 kg
[2022-06-10] MEDS ORDERED: POTA1TAB14 PO (08:14)
[2022-06-10] MEDS ORDERED: METO1TAB32 PO (08:14)
[2022-06-10 11:02] LABS: BASO # 0.1 10^3/uL (0.0-0.2); BASO % 0.5 % (0.0-1.0); EOS # 0.1 10^3/uL (0.0-0.5); EOS % 0.7 % (0.0-3.0); HEMATOCRIT 35.9 % (36.0-47.0); HEMOGLOBIN 11.3 g/dl (12.0-15.5); LYMPH # 1.7 10^3/uL (1.5-5.0); MEAN CORPUSCULAR HEMOGLOBIN 28.9 pg (27.0-33.0); MEAN CORPUSCULAR HGB CONC 31.5 g/dl (32.0-36.5); MEAN CORPUSCULAR VOLUME 91.8 fl (80.0-96.0); MONO # 0.9 10^3/uL (0.0-0.8); NEUTROPHILS % 76.5 % (36.0-66.0); PLATELET COUNT, AUTOMATED 282 10^3/uL (150-450); RED BLOOD COUNT 3.91 10^6/uL (4.00-5.40); WHITE BLOOD COUNT 11.8 10^3/uL (4.0-10.0)
[2022-06-10 11:36] LABS: RSV AMPLIFICATION NEGATIVE (NEGATIVE)
[2022-06-10 11:37] LABS: CK-MB VALUE MASS 1.5 NG/ML (<3.6); MB/CK RELATIVE INDEX 1.49 (< OR =4)
[2022-06-10 11:43] LABS: ALBUMIN 3.5 GM/DL (3.2-5.2); ALT/SGPT 98 U/L (12-78); BILIRUBIN,DIRECT 0.3 MG/DL (0.0-0.2); BILIRUBIN,TOTAL 0.8 MG/DL (0.2-1.0); BLOOD UREA NITROGEN 20 MG/DL (7-18); CALCIUM LEVEL 8.6 MG/DL (8.5-10.1); CARBON DIOXIDE LEVEL 27 MEQ/L (21-32); CHLORIDE LEVEL 103 MEQ/L (98-107); CREATININE FOR GFR 0.82 MG/DL (0.55-1.30); GLOMERULAR FILTRATION RATE > 60.0 (>58); GLUCOSE, FASTING 87 MG/DL (70-100); NT-PRO BNP 8833 PG/ML (<125); POTASSIUM SERUM 3.6 MEQ/L (3.5-5.1); SODIUM LEVEL 136 MEQ/L (136-145); TOTAL PROTEIN 6.5 GM/DL (6.4-8.2)
[2022-06-10 12:45] LABS: CK-MB VALUE MASS 1.7 NG/ML (<3.6); MB/CK RELATIVE INDEX 1.75 (< OR =4)
[2022-06-10] MEDS ORDERED: FUROSEMIDE 40MG/4ML VIAL (J1940) IV ONE (13:35)
[2022-06-10] MEDS ORDERED: ALBUTEROL SULFATE 2.5 MG/0.5 ML INH NEB SOLN NEB PRN (15:00)
[2022-06-10] MEDS: BUDESONIDE 180MCG INHALER (PULMICORT FLEXHALER) INH SCH (20:00)
[2022-06-10 20:35] VITALS: BP 149/100
[2022-06-10] MEDS ORDERED: ASCO250T20 PO (20:55)
[2022-06-10] MEDS ORDERED: HOME MED LIST COMPLETE! XX SCH (20:55)
[2022-06-10] MEDS ORDERED: FUROSEMIDE 20MG/2ML VIAL (J1940) IV ONE (21:20)
[2022-06-10] MEDS: ACETAMINOPHEN TAB 650MG DOSE (2X325MG) PO PRN (23:17)
[2022-06-10] MEDS ORDERED: guaiFENesin SYRUP 200MG 10ML UDC PO PRN (23:20)
[2022-06-10] MEDS ORDERED: RAMELTEON 8 MG TAB (ROZEREM) PO PRN (23:20)
[2022-06-10] MEDS ORDERED: BENZONATATE 100MG CAPSULE PO PRN (23:20)
[2022-06-11 06:00] VITALS: BP 123/75
[2022-06-11] MEDS ORDERED: LEVOTHYROXINE 88MCG TABLET (0.088 MG) PO SCH (06:00)
[2022-06-11 06:37] LABS: BASO % 0.5 % (0.0-1.0); EOS # 0.2 10^3/uL (0.0-0.5); EOS % 2.5 % (0.0-3.0); HEMATOCRIT 34.7 % (36.0-47.0); LYMPH # 1.9 10^3/uL (1.5-5.0); MEAN CORPUSCULAR HEMOGLOBIN 28.4 pg (27.0-33.0); MEAN CORPUSCULAR HGB CONC 31.7 g/dl (32.0-36.5); MEAN CORPUSCULAR VOLUME 89.7 fl (80.0-96.0); MONO # 0.7 10^3/uL (0.0-0.8); MONO % 9.4 % (2.0-8.0); NEUTROPHILS # 4.7 10^3/uL (1.5-8.5); NEUTROPHILS % 62.3 % (36.0-66.0); PLATELET COUNT, AUTOMATED 272 10^3/uL (150-450); RED BLOOD COUNT 3.87 10^6/uL (4.00-5.40); WHITE BLOOD COUNT 7.6 10^3/uL (4.0-10.0)
[2022-06-11 07:11] LABS: BLOOD UREA NITROGEN 18 MG/DL (7-18); CALCIUM LEVEL 8.5 MG/DL (8.5-10.1); CARBON DIOXIDE LEVEL 27 MEQ/L (21-32); CHLORIDE LEVEL 104 MEQ/L (98-107); CREATININE FOR GFR 0.85 MG/DL (0.55-1.30); GLOMERULAR FILTRATION RATE > 60.0 (>58); GLUCOSE, FASTING 107 MG/DL (70-100); POTASSIUM SERUM 3.1 MEQ/L (3.5-5.1); SODIUM LEVEL 138 MEQ/L (136-145)
[2022-06-11] MEDS ORDERED: POTASSIUM CHLORIDE 10MEQ SR TABLET PO ONE (07:50)
[2022-06-11] MEDS: BUDESONIDE 180MCG INHALER (PULMICORT FLEXHALER) INH SCH (08:00)
[2022-06-11] MEDS ORDERED: LOSARTAN 50MG TABLET PO SCH (09:00)
[2022-06-11] MEDS ORDERED: METOPROLOL SUCC *XL* 25MG TAB (TopROL *XL*) PO SCH (09:00)
[2022-06-11] MEDS ORDERED: ENOXAPARIN 40MG/0.4ML SYRINGE (J1650 PER 10MG) SC SCH (09:00)
[2022-06-11] MEDS ORDERED: IPRATROPIUM 0.5MG/ALBUTEROL 2.5MG INH SOL UD 3ML (DUONEB) NEB ONE (09:15)
[2022-06-11 09:24] VITALS: BP 123/75
[2022-06-11] MEDS: FUROSEMIDE 40MG/4ML VIAL (J1940) IV SCH ×2 (09:24→16:20)
[2022-06-11] MEDS: ACETAMINOPHEN TAB 650MG DOSE (2X325MG) PO PRN (12:49)
[2022-06-11 14:00] VITALS: BP 131/85
[2022-06-11] MEDS ORDERED: ALBU8.5H INH (16:01)
[2022-06-11] MEDS ORDERED: LASI40TA9 PO (16:01)
[2022-06-11] MEDS ORDERED: VITAMIN D 1,000 INTERNATIONAL UNITS TABLET PO SCH (21:00)
== END 2022-06-11 16:44 | disposition home or self-care (01) | DRG 291 ==
LOC: M ED 07:54 → M ED INP 14:52 → ENRESERV 15:46 → M MSPAV 18:56
PROVIDERS: ADMIT Internal Medicine Nephrology; ATTEND Family Medicine
DX: I11.0 Hypertensive heart disease with heart failure (principal); I50.33 Acute on chronic diastolic (congestive) heart failure; F43.10 Post-traumatic stress disorder, unspecified; E03.9 Hypothyroidism, unspecified; G43.709 Chronic migraine without aura, not intractable, without status migrainosus; F32.A Depression, unspecified; F60.3 Borderline personality disorder; M79.7 Fibromyalgia; R32 Unspecified urinary incontinence; H81.09 Meniere's disease, unspecified ear; R25.1 Tremor, unspecified; J06.9 Acute upper respiratory infection, unspecified; B97.89 Other viral agents as the cause of diseases classified elsewhere; B97.10 Unspecified enterovirus as the cause of diseases classified elsewhere; J45.909 Unspecified asthma, uncomplicated; Z86.718 Personal history of other venous thrombosis and embolism; Z88.0 Allergy status to penicillin; Z79.890 Hormone replacement therapy; Z88.5 Allergy status to narcotic agent; Z79.899 Other long term (current) drug therapy

== ENCOUNTER 2022-07-01 16:05 | Inpatient (IN) | payer OTHER ==
[~2022-07-01] VITALS: Ht 165.1 cm; Wt 103.5 kg
[~2022-07-01 16:05] MED LIST changes: +ASCO250T20 PO; +METO1TAB32 PO; +POTA1TAB14 PO
[2022-07-01 18:54] LABS: BASO % 0.4 % (0.0-1.0); EOS # 0.1 10^3/uL (0.0-0.5); EOS % 1.2 % (0.0-3.0); HEMATOCRIT 39.6 % (36.0-47.0); HEMOGLOBIN 12.2 g/dl (12.0-15.5); LYMPH # 1.9 10^3/uL (1.5-5.0); LYMPH % 17.6 % (24.0-44.0); MEAN CORPUSCULAR HEMOGLOBIN 28.6 pg (27.0-33.0); MEAN CORPUSCULAR HGB CONC 30.8 g/dl (32.0-36.5); MONO # 0.8 10^3/uL (0.0-0.8); MONO % 7.7 % (2.0-8.0); NEUTROPHILS # 7.9 10^3/uL (1.5-8.5); NEUTROPHILS % 72.8 % (36.0-66.0); PLATELET COUNT, AUTOMATED 276 10^3/uL (150-450); RED BLOOD COUNT 4.26 10^6/uL (4.00-5.40); WHITE BLOOD COUNT 10.9 10^3/uL (4.0-10.0)
[2022-07-01 19:32] LABS: CPK CREATINE PHOSPHOKINASE 94 U/L (26-192)
[2022-07-01 19:40] LABS: ALBUMIN 3.5 GM/DL (3.2-5.2); ALT/SGPT 40 U/L (12-78); BILIRUBIN,DIRECT 0.3 MG/DL (0.0-0.2); BILIRUBIN,TOTAL 1.2 MG/DL (0.2-1.0); BLOOD UREA NITROGEN 15 MG/DL (7-18); CARBON DIOXIDE LEVEL 27 MEQ/L (21-32); CHLORIDE LEVEL 105 MEQ/L (98-107); CREATININE FOR GFR 0.83 MG/DL (0.55-1.30); FREE T4 1.28 NG/DL (0.76-1.46); GLOMERULAR FILTRATION RATE > 60.0 (>58); GLUCOSE, FASTING 80 MG/DL (70-100); LIPASE 152 U/L (73-393); NT-PRO BNP 8662 PG/ML (<125); POTASSIUM SERUM 3.4 MEQ/L (3.5-5.1); SODIUM LEVEL 139 MEQ/L (136-145); TOTAL PROTEIN 6.3 GM/DL (6.4-8.2)
[2022-07-01 21:13] LABS: VENOUS BASE EXCESS 3.3 (-2.0-2.0); VENOUS HCO3 27.7 MEQ/L (23.0-27.0); VENOUS O2 SATURATION 83.9 % (60.0-80.0); VENOUS PARTIAL PRESSURE CO2 41.2 mmHg (38.0-50.0); VENOUS PARTIAL PRESSURE O2 49.8 mmHg (30.0-50.0); VENOUS PH 7.445 UNITS (7.330-7.430); VENOUS STANDARD HCO3 27.1 MEQ/L; VENOUS TOTAL CO2 28.9 MEQ/L (24.0-28.0)
[2022-07-01] MEDS: ALBUTEROL 90 MCG/ACT 8GM HFA INHALER INH SCH ×3 (21:22→22:18)
[2022-07-01] MEDS ORDERED: FUROSEMIDE 40MG/4ML VIAL (J1940) IV ONE (22:05)
[2022-07-01 22:52] LABS: CPK CREATINE PHOSPHOKINASE 192 U/L (26-192)
[2022-07-01] MEDS ORDERED: dexameTHASONE 20MG/5ML VIAL (J1100 PER 1MG) IV ONE (23:05)
[2022-07-02] VITALS (7 sets, daily range): BP systolic 116–154; BP diastolic 59–88
[2022-07-02] MEDS ORDERED: FURO40TA2 PO (00:56)
[2022-07-02] MEDS ORDERED: ALBU8.5H INH (00:56)
[2022-07-02] MEDS ORDERED: ALBU2.5V10 INH (00:56)
[2022-07-02] MEDS ORDERED: VITA100093 PO (00:57)
[2022-07-02] MEDS ORDERED: IRON65TA2 PO (00:57)
[2022-07-02] MEDS ORDERED: HOME MED LIST COMPLETE! XX SCH (01:00)
[2022-07-02] MEDS ORDERED: ALBUTEROL SULFATE 2.5 MG/0.5 ML INH NEB SOLN NEB PRN (01:45)
[2022-07-02] MEDS ORDERED: NITROGLYCERIN 2% OINT 1 GM *U/D* PKT TOP ONE (02:00)
[2022-07-02] MEDS: IPRATROPIUM 0.5MG/ALBUTEROL 2.5MG INH SOL UD 3ML (DUONEB) NEB SCH ×5 (02:00→20:59)
[2022-07-02] MEDS ORDERED: POTASSIUM CHLORIDE 10% LIQ 20 MEQ/15 ML UDC PO ONE (03:00)
[2022-07-02 04:40] LABS: BLOOD UREA NITROGEN 15 MG/DL (7-18); CALCIUM LEVEL 8.8 MG/DL (8.5-10.1); CARBON DIOXIDE LEVEL 26 MEQ/L (21-32); CHLORIDE LEVEL 104 MEQ/L (98-107); CREATININE FOR GFR 0.84 MG/DL (0.55-1.30); GLOMERULAR FILTRATION RATE > 60.0 (>58); GLUCOSE, FASTING 161 MG/DL (70-100); MAGNESIUM LEVEL 1.8 MG/DL (1.8-2.4); POTASSIUM SERUM 3.9 MEQ/L (3.5-5.1); SODIUM LEVEL 138 MEQ/L (136-145)
[2022-07-02] MEDS: LEVOTHYROXINE 88MCG TABLET (0.088 MG) PO SCH (05:52)
[2022-07-02] MEDS: HEPARIN SOD (PORCINE) 5000UNITS/ML 1ML VIAL/SYRINGE SC SCH ×3 (05:52→21:32)
[2022-07-02] MEDS ORDERED: ACETAMINOPHEN 500 MG TAB PO ONE (06:00)
[2022-07-02] MEDS ORDERED: LOSARTAN 50MG TABLET PO SCH (09:00)
[2022-07-02] MEDS: METOPROLOL SUCC *XL* 25MG TAB (TopROL *XL*) PO SCH (09:30)
[2022-07-02] MEDS: ISOSORBIDE DIN (ISORDIL) 10MG TAB PO SCH ×2 (09:30→14:07)
[2022-07-02] MEDS: FUROSEMIDE 40MG/4ML VIAL (J1940) IV SCH ×2 (09:31→18:00)
[2022-07-02] MEDS: EXCEDRIN MIGRAINE TABLET PO PRN (11:12)
[2022-07-03] MEDS: IPRATROPIUM 0.5MG/ALBUTEROL 2.5MG INH SOL UD 3ML (DUONEB) NEB SCH ×3 (02:00→19:27)
[2022-07-03 04:38] VITALS: BP 134/79
[2022-07-03] MEDS: LEVOTHYROXINE 88MCG TABLET (0.088 MG) PO SCH (05:16)
[2022-07-03] MEDS: HEPARIN SOD (PORCINE) 5000UNITS/ML 1ML VIAL/SYRINGE SC SCH ×3 (05:16→21:22)
[2022-07-03 08:00] VITALS: BP 138/90
[2022-07-03] MEDS: FUROSEMIDE 40MG/4ML VIAL (J1940) IV SCH ×2 (08:31→16:30)
[2022-07-03] MEDS: ENTRESTO 24-26MG TABLET (SACUBITRIL/VALSARTAN) PO SCH ×2 (08:31→21:22)
[2022-07-03] MEDS: METOPROLOL SUCC *XL* 25MG TAB (TopROL *XL*) PO SCH (08:32)
[2022-07-03] MEDS: ISOSORBIDE DIN (ISORDIL) 10MG TAB PO SCH ×2 (08:33→12:26)
[2022-07-03 08:35] LABS: BASO % 0.3 % (0.0-1.0); EOS # 0.1 10^3/uL (0.0-0.5); EOS % 1.2 % (0.0-3.0); HEMATOCRIT 35.8 % (36.0-47.0); HEMOGLOBIN 11.1 g/dl (12.0-15.5); LYMPH # 2.3 10^3/uL (1.5-5.0); LYMPH % 26.3 % (24.0-44.0); MEAN CORPUSCULAR HEMOGLOBIN 28.7 pg (27.0-33.0); MEAN CORPUSCULAR VOLUME 92.5 fl (80.0-96.0); MONO # 0.8 10^3/uL (0.0-0.8); MONO % 9.3 % (2.0-8.0); NEUTROPHILS # 5.6 10^3/uL (1.5-8.5); NEUTROPHILS % 62.6 % (36.0-66.0); PLATELET COUNT, AUTOMATED 263 10^3/uL (150-450); RED BLOOD COUNT 3.87 10^6/uL (4.00-5.40); WHITE BLOOD COUNT 8.9 10^3/uL (4.0-10.0)
[2022-07-03 09:21] LABS: BLOOD UREA NITROGEN 15 MG/DL (7-18); CALCIUM LEVEL 8.6 MG/DL (8.5-10.1); CARBON DIOXIDE LEVEL 26 MEQ/L (21-32); CHLORIDE LEVEL 105 MEQ/L (98-107); CREATININE FOR GFR 0.83 MG/DL (0.55-1.30); GLOMERULAR FILTRATION RATE > 60.0 (>58); GLUCOSE, FASTING 86 MG/DL (70-100); NT-PRO BNP 4106 PG/ML (<125); POTASSIUM SERUM 3.2 MEQ/L (3.5-5.1); SODIUM LEVEL 138 MEQ/L (136-145)
[2022-07-03] MEDS ORDERED: POTASSIUM CHLORIDE 10MEQ SR TABLET PO ONE (09:35)
[2022-07-03 12:24] VITALS: BP 131/91
[2022-07-03 16:00] VITALS: BP 145/90
[2022-07-03] MEDS: EXCEDRIN MIGRAINE TABLET PO PRN (16:36)
[2022-07-03 20:00] VITALS: BP 121/69
[2022-07-04] VITALS (7 sets, daily range): BP systolic 115–155; BP diastolic 60–90
[2022-07-04] MEDS: IPRATROPIUM 0.5MG/ALBUTEROL 2.5MG INH SOL UD 3ML (DUONEB) NEB SCH ×4 (02:26→20:00)
[2022-07-04] MEDS: LEVOTHYROXINE 88MCG TABLET (0.088 MG) PO SCH (06:08)
[2022-07-04] MEDS: HEPARIN SOD (PORCINE) 5000UNITS/ML 1ML VIAL/SYRINGE SC SCH ×3 (06:09→21:03)
[2022-07-04] MEDS: ISOSORBIDE DIN (ISORDIL) 10MG TAB PO SCH ×3 (08:00→13:05)
[2022-07-04 08:38] LABS: BASO # 0.1 10^3/uL (0.0-0.2); BASO % 0.7 % (0.0-1.0); EOS # 0.2 10^3/uL (0.0-0.5); EOS % 2.3 % (0.0-3.0); HEMATOCRIT 42.4 % (36.0-47.0); LYMPH # 2.9 10^3/uL (1.5-5.0); LYMPH % 31.6 % (24.0-44.0); MEAN CORPUSCULAR HEMOGLOBIN 28.9 pg (27.0-33.0); MEAN CORPUSCULAR HGB CONC 31.4 g/dl (32.0-36.5); MEAN CORPUSCULAR VOLUME 92.2 fl (80.0-96.0); MONO # 0.8 10^3/uL (0.0-0.8); MONO % 8.9 % (2.0-8.0); NEUTROPHILS # 5.2 10^3/uL (1.5-8.5); NEUTROPHILS % 56.3 % (36.0-66.0); PLATELET COUNT, AUTOMATED 359 10^3/uL (150-450); WHITE BLOOD COUNT 9.2 10^3/uL (4.0-10.0)
[2022-07-04 08:52] LABS: HEMOGLOBIN 13.3 g/dl (12.0-15.5)
[2022-07-04] MEDS ORDERED: SPIRONOLACTONE 12.5MG PER 1/2 TABLET PO SCH (09:00)
[2022-07-04 09:04] LABS: BLOOD UREA NITROGEN 14 MG/DL (7-18); CARBON DIOXIDE LEVEL 27 MEQ/L (21-32); CHLORIDE LEVEL 103 MEQ/L (98-107); CREATININE FOR GFR 0.86 MG/DL (0.55-1.30); GLOMERULAR FILTRATION RATE > 60.0 (>58); GLUCOSE, FASTING 89 MG/DL (70-100); MAGNESIUM LEVEL 2.1 MG/DL (1.8-2.4); POTASSIUM SERUM 3.2 MEQ/L (3.5-5.1); SODIUM LEVEL 137 MEQ/L (136-145)
[2022-07-04] MEDS: FUROSEMIDE 40MG/4ML VIAL (J1940) IV SCH (09:14)
[2022-07-04] MEDS: METOPROLOL SUCC *XL* 25MG TAB (TopROL *XL*) PO SCH (09:15)
[2022-07-04] MEDS: ENTRESTO 24-26MG TABLET (SACUBITRIL/VALSARTAN) PO SCH ×2 (09:15→21:03)
[2022-07-04] MEDS ORDERED: POTASSIUM CHLORIDE 10MEQ SR TABLET PO ONE ×2 (09:15→21:00)
[2022-07-04] MEDS: EXCEDRIN MIGRAINE TABLET PO PRN (13:04)
[2022-07-04] MEDS ORDERED: ENTR1TAB PO (14:48)
[2022-07-04] MEDS: FUROSEMIDE 40 MG TAB PO SCH (16:09)
[2022-07-05] VITALS: BP 116/62
[2022-07-05 00:23] VITALS: BP 149/97
[2022-07-05] MEDS: IPRATROPIUM 0.5MG/ALBUTEROL 2.5MG INH SOL UD 3ML (DUONEB) NEB SCH ×2 (01:27→07:34)
[2022-07-05 04:00] VITALS: BP 123/74
[2022-07-05] MEDS: HEPARIN SOD (PORCINE) 5000UNITS/ML 1ML VIAL/SYRINGE SC SCH (05:26)
[2022-07-05] MEDS: LEVOTHYROXINE 88MCG TABLET (0.088 MG) PO SCH (05:33)
[2022-07-05 06:43] LABS: BASO # 0.1 10^3/uL (0.0-0.2); BASO % 0.5 % (0.0-1.0); EOS # 0.4 10^3/uL (0.0-0.5); EOS % 3.7 % (0.0-3.0); HEMATOCRIT 42.4 % (36.0-47.0); HEMOGLOBIN 13.5 g/dl (12.0-15.5); LYMPH # 2.8 10^3/uL (1.5-5.0); LYMPH % 28.9 % (24.0-44.0); MEAN CORPUSCULAR HGB CONC 31.8 g/dl (32.0-36.5); MEAN CORPUSCULAR VOLUME 91.2 fl (80.0-96.0); MONO % 10.1 % (2.0-8.0); NEUTROPHILS # 5.6 10^3/uL (1.5-8.5); NEUTROPHILS % 56.4 % (36.0-66.0); PLATELET COUNT, AUTOMATED 340 10^3/uL (150-450); RED BLOOD COUNT 4.65 10^6/uL (4.00-5.40); WHITE BLOOD COUNT 9.8 10^3/uL (4.0-10.0)
[2022-07-05 07:11] LABS: BLOOD UREA NITROGEN 12 MG/DL (7-18); CALCIUM LEVEL 8.2 MG/DL (8.5-10.1); CARBON DIOXIDE LEVEL 25 MEQ/L (21-32); CHLORIDE LEVEL 106 MEQ/L (98-107); CREATININE FOR GFR 0.78 MG/DL (0.55-1.30); GLOMERULAR FILTRATION RATE > 60.0 (>58); GLUCOSE, FASTING 89 MG/DL (70-100); MAGNESIUM LEVEL 2.1 MG/DL (1.8-2.4); POTASSIUM SERUM 3.5 MEQ/L (3.5-5.1); SODIUM LEVEL 138 MEQ/L (136-145)
[2022-07-05 08:10] VITALS: BP 118/62
[2022-07-05] MEDS: FUROSEMIDE 40 MG TAB PO SCH (08:56)
[2022-07-05] MEDS: ENTRESTO 24-26MG TABLET (SACUBITRIL/VALSARTAN) PO SCH (08:56)
[2022-07-05] MEDS: METOPROLOL SUCC *XL* 25MG TAB (TopROL *XL*) PO SCH (08:57)
[2022-07-05] MEDS ORDERED: SPIRONOLACTONE 25 MG TAB PO SCH (09:00)
[2022-07-05 09:11] VITALS: BP 118/62
[2022-07-05] MEDS: ISOSORBIDE DIN (ISORDIL) 10MG TAB PO SCH (09:11)
[2022-07-05] MEDS ORDERED: ALDA25TA2 PO (09:50)
[2022-07-05] MEDS ORDERED: ISOS10TA3 PO (09:50)
[2022-07-05] MEDS ORDERED: FURO40TA2 PO (09:50)
[2022-07-05] MEDS ORDERED: POTA10TA67 PO (09:50)
[2022-07-05] MEDS ORDERED: METO25TA PO (11:47)
== END 2022-07-05 12:06 | disposition home health service (06) | DRG 291 ==
LOC: M ED 16:05 → M ED INP 07-02 01:41 → ENRESERV 07-02 02:12 → M PCU 07-02 02:39
PROVIDERS: ADMIT Internal Medicine; ATTEND Internal Medicine
DX: I11.0 Hypertensive heart disease with heart failure (principal); I50.21 Acute systolic (congestive) heart failure; I50.33 Acute on chronic diastolic (congestive) heart failure; I50.32 Chronic diastolic (congestive) heart failure; J45.909 Unspecified asthma, uncomplicated; E03.9 Hypothyroidism, unspecified; F31.9 Bipolar disorder, unspecified; R63.4 Abnormal weight loss; E78.5 Hyperlipidemia, unspecified; G43.909 Migraine, unspecified, not intractable, without status migrainosus; I42.8 Other cardiomyopathies; E87.6 Hypokalemia; I27.20 Pulmonary hypertension, unspecified; Z79.890 Hormone replacement therapy; Z79.899 Other long term (current) drug therapy; Z88.0 Allergy status to penicillin; Z88.8 Allergy status to other drugs, medicaments and biological substances

== ENCOUNTER → 2022-08-23 | Outpatient (REF) | payer OTHER, MEDICAID ==
[~2022-08-23] MED LIST changes: +ALDA25TA2 PO; +ENTR1TAB PO; +FURO40TA2 PO; +IRON65TA2 PO; +ISOS10TA3 PO; +METO25TA PO; +POTA10TA67 PO
[2022-08-23 15:21] LABS: BASO % 0.6 % (0.0-1.0); EOS # 0.1 10^3/uL (0.0-0.5); HEMATOCRIT 38.8 % (36.0-47.0); HEMOGLOBIN 12.4 g/dl (12.0-15.5); LYMPH # 1.8 10^3/uL (1.5-5.0); LYMPH % 25.7 % (24.0-44.0); MEAN CORPUSCULAR HEMOGLOBIN 29.2 pg (27.0-33.0); MEAN CORPUSCULAR VOLUME 91.3 fl (80.0-96.0); MONO # 0.6 10^3/uL (0.0-0.8); MONO % 7.8 % (2.0-8.0); NEUTROPHILS # 4.5 10^3/uL (1.5-8.5); NEUTROPHILS % 63.6 % (36.0-66.0); PLATELET COUNT, AUTOMATED 280 10^3/uL (150-450); RED BLOOD COUNT 4.25 10^6/uL (4.00-5.40); WHITE BLOOD COUNT 7.1 10^3/uL (4.0-10.0)
[2022-08-23 15:22] LABS: FERRITIN 82.3 NG/ML (7.3-270.7); THYROID STIMULATING HORMONE 3.038 uIU/ML (0.55-4.78); TOTAL IRON BINDING CAPACITY 275 UG/DL (250-425)
[2022-08-23 15:23] LABS: IRON (FE) 112 UG/DL (50-170); PERCENT SATURATION 40.7 % (13.2-45.0); VITAMIN B12 LEVEL 331 PG/ML (211-911)
[2022-08-23 15:34] LABS: ALBUMIN 3.5 G/DL (3.2-5.2); ALKALINE PHOSPHATASE 59 U/L (46-116); ALT/SGPT 19 U/L (7.0-40); AST/SGOT 21 U/L (<34); BILIRUBIN,TOTAL 0.7 MG/DL (0.3-1.2); BLOOD UREA NITROGEN 16 MG/DL (9-23); CARBON DIOXIDE LEVEL 24 MMOL/L (20-31); CHLORIDE LEVEL 104 MMOL/L (98-107); CHOLESTEROL LEVEL 161 MG/DL (<200); CREATININE FOR GFR 0.86 MG/DL (0.55-1.30); FOLATE 3.9 NG/ML (>5.4); GLOMERULAR FILTRATION RATE > 60.0 (>58); GLUCOSE, FASTING 90 MG/DL (60-100); HDL CHOLESTEROL 51.9 MG/DL (>40); LDL CHOLESTEROL 77.5 MG/DL (<100); NON-HDL-C 109 MG/DL; POTASSIUM SERUM 4.2 MMOL/L (3.5-5.1); SODIUM LEVEL 139 MMOL/L (136-145); TRIGLYCERIDES LEVEL 158 MG/DL (<150)
== END ==
LOC: M LAB REF 14:30
PROVIDERS: ATTEND Family Medicine Addiction Medicine
DX: I10 Essential (primary) hypertension (principal); D64.9 Anemia, unspecified

== ENCOUNTER 2022-10-24 13:31 | Emergency (ER) | payer OTHER ==
[~2022-10-24] VITALS: Ht 165.1 cm; Wt 98.2 kg
[~2022-10-24 13:31] MED LIST changes: -FLUO10TA2 PO; +FLUO1TAB PO
[2022-10-24 14:09] LABS: BASO % 0.3 % (0.0-1.0); EOS # 0.1 10^3/uL (0.0-0.5); EOS % 1.3 % (0.0-3.0); HEMATOCRIT 38.8 % (36.0-47.0); HEMOGLOBIN 12.5 g/dl (12.0-15.5); LYMPH # 2.4 10^3/uL (1.5-5.0); LYMPH % 26.4 % (24.0-44.0); MEAN CORPUSCULAR HEMOGLOBIN 30.3 pg (27.0-33.0); MEAN CORPUSCULAR HGB CONC 32.2 g/dl (32.0-36.5); MEAN CORPUSCULAR VOLUME 93.9 fl (80.0-96.0); MONO # 0.8 10^3/uL (0.0-0.8); MONO % 8.3 % (2.0-8.0); NEUTROPHILS # 5.8 10^3/uL (1.5-8.5); NEUTROPHILS % 63.4 % (36.0-66.0); PLATELET COUNT, AUTOMATED 296 10^3/uL (150-450); RED BLOOD COUNT 4.13 10^6/uL (4.00-5.40); WHITE BLOOD COUNT 9.1 10^3/uL (4.0-10.0)
[2022-10-24 14:30] LABS: LIPASE 52 U/L (12-53)
[2022-10-24 14:36] LABS: ALBUMIN 3.8 G/DL (3.2-5.2); ALKALINE PHOSPHATASE 66 U/L (46-116); ALT/SGPT 12 U/L (7.0-40); AST/SGOT 15 U/L (<34); BILIRUBIN,DIRECT 0.1 MG/DL (<0.4); BILIRUBIN,TOTAL 0.4 MG/DL (0.3-1.2); BLOOD UREA NITROGEN 14 MG/DL (9-23); CARBON DIOXIDE LEVEL 28 MMOL/L (20-31); CHLORIDE LEVEL 103 MMOL/L (98-107); CREATININE FOR GFR 0.88 MG/DL (0.55-1.30); GLOMERULAR FILTRATION RATE > 60.0 (>58); GLUCOSE, FASTING 81 MG/DL (60-100); POTASSIUM SERUM 3.7 MMOL/L (3.5-5.1); SODIUM LEVEL 140 MMOL/L (136-145); TOTAL PROTEIN 6.4 G/DL (5.7-8.2)
[2022-10-24 14:41] LABS: HCG, SERUM QUALITATIVE NEGATIVE (NEGATIVE)
[2022-10-24] MEDS ORDERED: GI COCKTAIL 50ML BTL(HYOSCYAMINE/MAALOX/LIDOCAINE VISCOUS)(1:3:1) PO ONE (15:25)
[2022-10-24] MEDS ORDERED: PANTOPRAZOLE 40MG VIAL IV ONE (15:25)
[2022-10-24] MEDS ORDERED: ISOVUE-370 76% 100ML VIAL As Ordered ONE (15:26)
[2022-10-24 16:23] LABS: CK-MB VALUE MASS < 1.0 NG/ML (<3.6)
[2022-10-24 16:24] LABS: CPK CREATINE PHOSPHOKINASE 84 U/L (34-145); MB/CK RELATIVE INDEX 1.19 (< OR =4)
[2022-10-24] MEDS ORDERED: OMEP40CA4 PO (16:50)
[2022-10-24 16:57] VITALS: BP 139/77
== END 2022-10-24 17:06 | disposition home or self-care (01) ==
LOC: M ED 13:31
DX: K21.9 Gastro-esophageal reflux disease without esophagitis (principal); R94.31 Abnormal electrocardiogram [ECG] [EKG]; I10 Essential (primary) hypertension; Z86.718 Personal history of other venous thrombosis and embolism; E03.9 Hypothyroidism, unspecified; F43.10 Post-traumatic stress disorder, unspecified; F41.9 Anxiety disorder, unspecified; F32.A Depression, unspecified; J45.909 Unspecified asthma, uncomplicated; Z95.5 Presence of coronary angioplasty implant and graft; H81.09 Meniere's disease, unspecified ear; Z88.0 Allergy status to penicillin; Z88.8 Allergy status to other drugs, medicaments and biological substances; Z79.51 Long term (current) use of inhaled steroids; Z79.890 Hormone replacement therapy; Z79.899 Other long term (current) drug therapy
CPT/HCPCS: 36415; 74177; 80048; 80076; 81002; 82550; 82553; 83690; 84484; 84703; 85025; 93005; 96374; 99284; C9113; Q9967

== ENCOUNTER 2022-11-02 22:21 | Emergency (ER) | payer OTHER ==
[~2022-11-02] VITALS: Ht 165.1 cm; Wt 98.4 kg
[~2022-11-02 22:21] MED LIST changes: +OMEP40CA4 PO
[2022-11-02 23:23] LABS: BASO # 0.1 10^3/uL (0.0-0.2); BASO % 0.7 % (0.0-1.0); EOS # 0.2 10^3/uL (0.0-0.5); EOS % 2.3 % (0.0-3.0); HEMATOCRIT 36.6 % (36.0-47.0); HEMOGLOBIN 11.7 g/dl (12.0-15.5); LYMPH # 2.6 10^3/uL (1.5-5.0); LYMPH % 33.7 % (24.0-44.0); MEAN CORPUSCULAR HEMOGLOBIN 30.1 pg (27.0-33.0); MEAN CORPUSCULAR VOLUME 94.1 fl (80.0-96.0); MONO # 0.7 10^3/uL (0.0-0.8); MONO % 8.7 % (2.0-8.0); NEUTROPHILS # 4.2 10^3/uL (1.5-8.5); NEUTROPHILS % 54.3 % (36.0-66.0); PLATELET COUNT, AUTOMATED 276 10^3/uL (150-450); RED BLOOD COUNT 3.89 10^6/uL (4.00-5.40); WHITE BLOOD COUNT 7.7 10^3/uL (4.0-10.0)
[2022-11-02 23:42] LABS: CK-MB VALUE MASS < 1.0 NG/ML (<3.6)
[2022-11-02 23:43] LABS: LIPASE 54 U/L (12-53)
[2022-11-02 23:44] LABS: CPK CREATINE PHOSPHOKINASE 122 U/L (34-145); MB/CK RELATIVE INDEX 0.81 (< OR =4)
[2022-11-02 23:45] LABS: ALBUMIN 3.7 G/DL (3.2-5.2); ALKALINE PHOSPHATASE 64 U/L (46-116); ALT/SGPT 16 U/L (7.0-40); AST/SGOT 14 U/L (<34); BILIRUBIN,DIRECT < 0.1 MG/DL (<0.4); BILIRUBIN,TOTAL 0.3 MG/DL (0.3-1.2); BLOOD UREA NITROGEN 15 MG/DL (9-23); CALCIUM LEVEL 8.5 MG/DL (8.5-10.1); CARBON DIOXIDE LEVEL 28 MMOL/L (20-31); CHLORIDE LEVEL 106 MMOL/L (98-107); CREATININE FOR GFR 0.98 MG/DL (0.55-1.30); GLOMERULAR FILTRATION RATE > 60.0 (>58); GLUCOSE, FASTING 96 MG/DL (60-100); POTASSIUM SERUM 3.7 MMOL/L (3.5-5.1); SODIUM LEVEL 141 MMOL/L (136-145); TOTAL PROTEIN 6.2 G/DL (5.7-8.2)
[2022-11-02 23:46] LABS: FREE T4 1.21 NG/DL (0.89-1.76)
[2022-11-02 23:47] LABS: THYROID STIMULATING HORMONE 10.249 uIU/ML (0.55-4.78)
[2022-11-02 23:49] LABS: HCG, SERUM QUALITATIVE NEGATIVE (NEGATIVE)
[2022-11-03 00:21] LABS: INR 0.91; PROTHROMBIN TIME 12.4 SECONDS (12.5-14.5)
[2022-11-03] MEDS ORDERED: ISOVUE-370 76% 100ML VIAL As Ordered ONE (00:42)
[2022-11-03 01:18] LABS: CK-MB VALUE MASS 1.2 NG/ML (<3.6)
[2022-11-03 01:26] LABS: MB/CK RELATIVE INDEX 0.83 (< OR =4)
[2022-11-03] MEDS ORDERED: methylPREDNISolone 40MG 1ML VIAL IV ONE (01:35)
[2022-11-03] MEDS ORDERED: BENZONATATE 100MG CAPSULE PO ONE (01:35)
[2022-11-03] MEDS ORDERED: BENZ200C70 PO (01:37)
[2022-11-03] MEDS ORDERED: MEDR4PAK PO (01:37)
[2022-11-03 01:45] VITALS: BP 123/73
== END 2022-11-03 01:57 | disposition home or self-care (01) ==
LOC: M ED 22:21
DX: J20.9 Acute bronchitis, unspecified (principal); B34.8 Other viral infections of unspecified site; I50.9 Heart failure, unspecified; I10 Essential (primary) hypertension; E78.5 Hyperlipidemia, unspecified; E03.9 Hypothyroidism, unspecified; Z98.61 Coronary angioplasty status; Z79.890 Hormone replacement therapy; Z79.899 Other long term (current) drug therapy; Z88.0 Allergy status to penicillin; Z88.8 Allergy status to other drugs, medicaments and biological substances
CPT/HCPCS: 71045; 71275; 80048; 80076; 82550; 82553; 83690; 83880; 84439; 84443; 84484; 84703; 85025; 85610; 87486; 87581; 87633; 87798; 93005; 96374; 99284; J2920; Q9967

== ENCOUNTER → 2022-12-13 | Outpatient (REF) | payer OTHER ==
[~2022-12-13] MED LIST changes: +BENZ200C70 PO
[2022-12-13 17:18] LABS: ALBUMIN 3.7 G/DL (3.2-5.2); ALKALINE PHOSPHATASE 69 U/L (46-116); ALT/SGPT 16 U/L (7.0-40); AST/SGOT 14 U/L (<34); BILIRUBIN,TOTAL 0.7 MG/DL (0.3-1.2); BLOOD UREA NITROGEN 21 MG/DL (9-23); CARBON DIOXIDE LEVEL 29 MMOL/L (20-31); CHLORIDE LEVEL 103 MMOL/L (98-107); CHOLESTEROL LEVEL 201 MG/DL (<200); CHOLESTEROL RISK RATIO 3.43 (<5); CREATININE FOR GFR 0.98 MG/DL (0.55-1.30); GLOMERULAR FILTRATION RATE > 60.0 (>58); GLUCOSE, FASTING 72 MG/DL (60-100); HDL CHOLESTEROL 58.5 MG/DL (>40); LDL CHOLESTEROL 115.9 MG/DL (<100); NON-HDL-C 142.5 MG/DL; SODIUM LEVEL 140 MMOL/L (136-145); THYROID STIMULATING HORMONE 3.989 uIU/ML (0.55-4.78); TOTAL PROTEIN 6.3 G/DL (5.7-8.2); TRIGLYCERIDES LEVEL 133 MG/DL (<150)
== END ==
LOC: M LAB REF 16:06
PROVIDERS: ATTEND Family Medicine Addiction Medicine
DX: E03.9 Hypothyroidism, unspecified (principal)

== ENCOUNTER 2022-12-26 06:10 | Emergency (ER) | payer OTHER ==
[~2022-12-26] VITALS: Ht 165.1 cm; Wt 99.4 kg
[2022-12-26] MEDS ORDERED: LOSA100T45 (06:21)
[2022-12-26 07:33] LABS: BASO # 0.1 10^3/uL (0.0-0.2); BASO % 0.5 % (0.0-1.0); EOS # 0.2 10^3/uL (0.0-0.5); EOS % 2.2 % (0.0-3.0); HEMATOCRIT 38.9 % (36.0-47.0); HEMOGLOBIN 12.6 g/dl (12.0-15.5); LYMPH # 1.4 10^3/uL (1.5-5.0); LYMPH % 13.6 % (24.0-44.0); MEAN CORPUSCULAR HEMOGLOBIN 29.6 pg (27.0-33.0); MEAN CORPUSCULAR HGB CONC 32.4 g/dl (32.0-36.5); MEAN CORPUSCULAR VOLUME 91.3 fl (80.0-96.0); MONO % 9.6 % (2.0-8.0); NEUTROPHILS # 7.3 10^3/uL (1.5-8.5); NEUTROPHILS % 73.8 % (36.0-66.0); PLATELET COUNT, AUTOMATED 251 10^3/uL (150-450); RED BLOOD COUNT 4.26 10^6/uL (4.00-5.40); WHITE BLOOD COUNT 9.9 10^3/uL (4.0-10.0)
[2022-12-26 08:05] LABS: ALBUMIN 3.8 G/DL (3.2-5.2); ALKALINE PHOSPHATASE 66 U/L (46-116); ALT/SGPT 15 U/L (7.0-40); AST/SGOT 19 U/L (<34); BILIRUBIN,DIRECT 0.1 MG/DL (<0.4); BILIRUBIN,TOTAL 0.4 MG/DL (0.3-1.2); BLOOD UREA NITROGEN 23 MG/DL (9-23); CARBON DIOXIDE LEVEL 28 MMOL/L (20-31); CHLORIDE LEVEL 103 MMOL/L (98-107); CREATININE FOR GFR 0.83 MG/DL (0.55-1.30); GLOMERULAR FILTRATION RATE > 60.0 (>58); GLUCOSE, FASTING 88 MG/DL (60-100); POTASSIUM SERUM 3.9 MMOL/L (3.5-5.1); SODIUM LEVEL 139 MMOL/L (136-145); TOTAL PROTEIN 6.4 G/DL (5.7-8.2)
[2022-12-26 08:07] LABS: THYROID STIMULATING HORMONE 1.478 uIU/ML (0.55-4.78)
[2022-12-26 09:08] VITALS: BP 129/70
== END 2022-12-26 09:18 | disposition home or self-care (01) ==
LOC: M ED 06:10
DX: J06.9 Acute upper respiratory infection, unspecified (principal); I10 Essential (primary) hypertension; I50.30 Unspecified diastolic (congestive) heart failure; E03.9 Hypothyroidism, unspecified; J45.909 Unspecified asthma, uncomplicated; Z88.0 Allergy status to penicillin; Z79.899 Other long term (current) drug therapy; Z79.51 Long term (current) use of inhaled steroids

== ENCOUNTER 2022-12-31 18:26 | Emergency (ER) | payer OTHER ==
[~2022-12-31] VITALS: Ht 165.1 cm; Wt 101.4 kg
[~2022-12-31 18:26] MED LIST changes: +LOSA100T45
[2022-12-31 23:33] VITALS: BP 151/79
== END 2023-01-01 01:56 | disposition left against medical advice (07) ==
LOC: M ED 18:26
DX: U07.1 COVID-19 (principal); Z53.21 Procedure and treatment not carried out due to patient leaving prior to being seen by health care provider

== ENCOUNTER → 2023-01-07 | Outpatient (REF) | payer OTHER ==
[2023-01-07 17:43] LABS: APPEARANCE, URINE CLEAR (CLEAR); BACTERIA, URINE AUTO NEGATIVE (NEGATIVE); BILIRUBIN, URINE AUTO NEGATIVE (NEGATIVE); BLOOD, URINE BLOOD NEGATIVE (NEGATIVE); COLOR, URINE YELLOW (YELLOW); GLUCOSE, URINE (UA) AUTO NEGATIVE (NEGATIVE); KETONE, URINE AUTO NEGATIVE (NEGATIVE); LEUKOCYTE ESTERASE, URINE AUTO NEGATIVE (NEGATIVE); NITRITE, URINE AUTO NEGATIVE (NEGATIVE); PROTEIN, URINE AUTO NEGATIVE (NEGATIVE); RBC, URINE AUTO 0 /HPF (0-3); SPECIFIC GRAVITY URINE AUTO 1.013 (1.002-1.035); SQUAMOUS EPITHELIAL CELL UR AU 2 /HPF (0-6); UROBILINOGEN, URINE AUTO 0.2 mg/dL (0.0-2.0); WBC, URINE AUTO 1 /HPF (0-3)
== END ==
LOC: M SMT 16:56
PROVIDERS: ATTEND Urology
DX: N39.41 Urge incontinence (principal)

== ENCOUNTER → 2023-01-20 | Outpatient (CLI) | payer OTHER ==
[~2023-01-20] MED LIST changes: -LOSA100T45; +LOSA100T46; +POTA-298 PO; -POTA1TAB14 PO
== END ==
LOC: M PAIN 10:15
PROVIDERS: ATTEND Nurse Practitioner Family
DX: M79.10 Myalgia, unspecified site (principal); M54.2 Cervicalgia; F43.10 Post-traumatic stress disorder, unspecified; E03.9 Hypothyroidism, unspecified; G43.709 Chronic migraine without aura, not intractable, without status migrainosus; F32.A Depression, unspecified; F60.3 Borderline personality disorder; M79.7 Fibromyalgia; I50.9 Heart failure, unspecified; R32 Unspecified urinary incontinence; Z79.890 Hormone replacement therapy; Z79.899 Other long term (current) drug therapy; Z88.0 Allergy status to penicillin

== ENCOUNTER → 2023-02-12 | Outpatient (REF) | payer OTHER | LOC: M SFHCWAGY 17:50 | PROVIDERS: ATTEND Nurse Practitioner Family | DX: Z12.4 Encounter for screening for malignant neoplasm of cervix (principal); R87.810 Cervical high risk human papillomavirus (HPV) DNA test positive | CPT/HCPCS: 87624; G0123 ==

== ENCOUNTER → 2023-03-21 | Outpatient (CLI) | payer OTHER ==
[~2023-03-21] MED LIST changes: +FAMO20TA5 PO; -K-TA10TA2 PO; +LEVO100T5 PO; -LOSA100T46; +LOSA100T46 PO; +MYRB50TA PO; +OMEP40CA5 PO; +POTA-165 PO; +SPIR-10 PO; +TIZA2TA PO; +TRIAMCINOLONE ACETONIDE SUSP 40MG/ML 1ML VIAL As Ordered ONE; +diazePAM 5MG TABLET As Ordered ONE; +oxyCODONE 5MG TAB As Ordered ONE
== END ==
LOC: M PAIN 11:00
PROVIDERS: ATTEND Anesthesiology
DX: M79.12 Myalgia of auxiliary muscles, head and neck (principal); M79.18 Myalgia, other site; F43.10 Post-traumatic stress disorder, unspecified; E03.9 Hypothyroidism, unspecified; G43.709 Chronic migraine without aura, not intractable, without status migrainosus; F32.A Depression, unspecified; F60.3 Borderline personality disorder; M79.7 Fibromyalgia; I50.9 Heart failure, unspecified; H81.09 Meniere's disease, unspecified ear; Z79.899 Other long term (current) drug therapy; Z88.0 Allergy status to penicillin
CPT/HCPCS: 20553; J3301

== ENCOUNTER 2023-04-17 14:40 | Emergency (ER) | payer OTHER ==
[~2023-04-17] VITALS: Ht 165.1 cm; Wt 100.3 kg
[2023-04-17 14:40] VITALS: TEMP 96.9
[~2023-04-17 14:40] MED LIST changes: -AMIT25TA17 PO; +AMIT25TA19 PO; -GABA-283 PO; +GABA-284 PO; -TRIAMCINOLONE ACETONIDE SUSP 40MG/ML 1ML VIAL As Ordered ONE; -diazePAM 5MG TABLET As Ordered ONE; -oxyCODONE 5MG TAB As Ordered ONE
[2023-04-17] MEDS ORDERED: IBUPROFEN 600MG TAB PO ONE (18:55)
[2023-04-17 20:19] VITALS: BP 156/74; O2SAT 99
== END 2023-04-17 20:25 | disposition home or self-care (01) ==
LOC: M ED 14:40
DX: S83.91XA Sprain of unspecified site of right knee, initial encounter (principal); X50.0XXA Overexertion from strenuous movement or load, initial encounter; Y92.89 Other specified places as the place of occurrence of the external cause; Y93.89 Activity, other specified; Y99.8 Other external cause status; F43.10 Post-traumatic stress disorder, unspecified; F39 Unspecified mood [affective] disorder; F60.9 Personality disorder, unspecified; Z86.711 Personal history of pulmonary embolism; Z88.0 Allergy status to penicillin; Z79.899 Other long term (current) drug therapy; Z79.51 Long term (current) use of inhaled steroids

== ENCOUNTER → 2023-04-24 | Outpatient (CLI) | payer OTHER | LOC: M WHC 14:27 | PROVIDERS: ATTEND Nurse Practitioner Family | DX: Z12.31 Encounter for screening mammogram for malignant neoplasm of breast (principal) ==

== ENCOUNTER → 2023-04-25 | Outpatient (CLI) | payer OTHER | LOC: M PAIN 14:30 | PROVIDERS: ATTEND Nurse Practitioner Family | DX: M50.10 Cervical disc disorder with radiculopathy, unspecified cervical region (principal); G89.29 Other chronic pain; F43.10 Post-traumatic stress disorder, unspecified; E03.9 Hypothyroidism, unspecified; G43.709 Chronic migraine without aura, not intractable, without status migrainosus; F32.A Depression, unspecified; F60.3 Borderline personality disorder; M79.7 Fibromyalgia; I50.9 Heart failure, unspecified; R32 Unspecified urinary incontinence; Z79.890 Hormone replacement therapy; Z79.899 Other long term (current) drug therapy; Z88.0 Allergy status to penicillin ==

== ENCOUNTER → 2023-05-07 | Outpatient (REF) | payer OTHER ==
[2023-05-07 17:51] LABS: ALBUMIN 3.8 G/DL (3.2-5.2); ALKALINE PHOSPHATASE 73 U/L (46-116); ALT/SGPT 19 U/L (7.0-40); AST/SGOT 10 U/L (<34); BILIRUBIN,TOTAL 0.4 MG/DL (0.3-1.2); BLOOD UREA NITROGEN 20 MG/DL (9-23); CALCIUM LEVEL 9.2 MG/DL (8.5-10.1); CARBON DIOXIDE LEVEL 25 MMOL/L (20-31); CHLORIDE LEVEL 105 MMOL/L (98-107); CHOLESTEROL LEVEL 188 MG/DL (<200); CHOLESTEROL RISK RATIO 2.98 (<5); CREATININE FOR GFR 0.97 MG/DL (0.55-1.30); GLOMERULAR FILTRATION RATE > 60.0 (>58); GLUCOSE, FASTING 79 MG/DL (60-100); LDL CHOLESTEROL 105.6 MG/DL (<100); POTASSIUM SERUM 4.5 MMOL/L (3.5-5.1); SODIUM LEVEL 138 MMOL/L (136-145); THYROID STIMULATING HORMONE 4.144 uIU/ML (0.55-4.78); TOTAL PROTEIN 6.6 G/DL (5.7-8.2); TRIGLYCERIDES LEVEL 97 MG/DL (<150)
== END ==
LOC: M LAB REF 16:33
PROVIDERS: ATTEND Family Medicine Addiction Medicine
DX: E03.9 Hypothyroidism, unspecified (principal)

== ENCOUNTER → 2023-07-09 | Outpatient (CLI) | payer MEDICAID, MEDICARE, OTHER ==
[~2023-07-09] MED LIST changes: +MECL-209 PO; -MECL1TAB31 PO; -MIRT-62 PO; +MIRT-88 PO
== END ==
LOC: M PLAIMG 06:49
PROVIDERS: ATTEND Nurse Practitioner Family
DX: M54.2 Cervicalgia (principal)

== ENCOUNTER → 2023-07-29 | Outpatient (CLI) | payer MEDICARE | LOC: M PAIN 16:30 | PROVIDERS: ATTEND Nurse Practitioner Family | DX: M48.02 Spinal stenosis, cervical region (principal); G89.29 Other chronic pain; M54.9 Dorsalgia, unspecified; F43.10 Post-traumatic stress disorder, unspecified; E03.9 Hypothyroidism, unspecified; G43.709 Chronic migraine without aura, not intractable, without status migrainosus; F32.A Depression, unspecified; F60.3 Borderline personality disorder; M79.7 Fibromyalgia; N39.46 Mixed incontinence; R25.1 Tremor, unspecified; Z79.890 Hormone replacement therapy; Z79.899 Other long term (current) drug therapy; Z88.0 Allergy status to penicillin ==

== ENCOUNTER 2023-10-31 21:42 | Emergency (ER) | payer MEDICARE, OTHER ==
[~2023-10-31] VITALS: Ht 165.1 cm; Wt 113.6 kg
[2023-10-31 22:34] LABS: BASO # 0.1 10^3/uL (0.0-0.2); BASO % 0.5 % (0.0-1.0); EOS # 0.1 10^3/uL (0.0-0.5); EOS % 0.7 % (0.0-3.0); HEMATOCRIT 38.6 % (36.0-47.0); HEMOGLOBIN 12.6 g/dl (12.0-15.5); LYMPH # 2.1 10^3/uL (1.5-5.0); LYMPH % 22.4 % (24.0-44.0); MEAN CORPUSCULAR HEMOGLOBIN 29.8 pg (27.0-33.0); MEAN CORPUSCULAR HGB CONC 32.6 g/dl (32.0-36.5); MEAN CORPUSCULAR VOLUME 91.3 fl (80.0-96.0); MONO # 0.9 10^3/uL (0.0-0.8); MONO % 9.2 % (2.0-8.0); NEUTROPHILS # 6.4 10^3/uL (1.5-8.5); NEUTROPHILS % 66.9 % (36.0-66.0); PLATELET COUNT, AUTOMATED 243 10^3/uL (150-450); RED BLOOD COUNT 4.23 10^6/uL (4.00-5.40); WHITE BLOOD COUNT 9.5 10^3/uL (4.0-10.0)
[2023-10-31 22:49] LABS: LIPASE 59 U/L (12-53)
[2023-10-31 22:52] LABS: ALBUMIN 3.9 G/DL (3.2-5.2); ALKALINE PHOSPHATASE 84 U/L (46-116); ALT/SGPT 17 U/L (7.0-40); AST/SGOT 12 U/L (<34); BILIRUBIN,DIRECT < 0.1 MG/DL (<0.4); BILIRUBIN,TOTAL 0.3 MG/DL (0.3-1.2); BLOOD UREA NITROGEN 15 MG/DL (9-23); CALCIUM LEVEL 8.5 MG/DL (8.5-10.1); CARBON DIOXIDE LEVEL 27 MMOL/L (20-31); CHLORIDE LEVEL 106 MMOL/L (98-107); CREATININE FOR GFR 0.92 MG/DL (0.55-1.30); GLOMERULAR FILTRATION RATE > 60.0 (>58); GLUCOSE, FASTING 85 MG/DL (60-100); POTASSIUM SERUM 3.7 MMOL/L (3.5-5.1); SODIUM LEVEL 139 MMOL/L (136-145); TOTAL PROTEIN 6.6 G/DL (5.7-8.2)
[2023-11-01] MEDS: BENZONATATE 100MG CAPSULE PO ONE (03:50)
[2023-11-01] MEDS: predniSONE 20 MG TAB PO ONE (03:50)
[2023-11-01] MEDS ORDERED: PRED20TA PO (04:16)
[2023-11-01 04:20] VITALS: BP 137/84; TEMP 98.2; O2SAT 99
== END 2023-11-01 04:24 | disposition home or self-care (01) ==
LOC: M ED 21:42
DX: J45.909 Unspecified asthma, uncomplicated (principal); F10.10 Alcohol abuse, uncomplicated; G43.909 Migraine, unspecified, not intractable, without status migrainosus; Z86.79 Personal history of other diseases of the circulatory system; Z88.0 Allergy status to penicillin; Z79.52 Long term (current) use of systemic steroids; Z79.83 Long term (current) use of bisphosphonates; Z79.899 Other long term (current) drug therapy; Z87.42 Personal history of other diseases of the female genital tract
CPT/HCPCS: 36415; 71046; 80048; 80076; 83690; 83880; 85025; 87486; 87581; 87633; 87798; 99284; J7512

== ENCOUNTER 2023-11-20 11:35 | Emergency (ER) | payer MEDICARE, OTHER ==
[~2023-11-20] VITALS: Ht 165.1 cm; Wt 110.2 kg
[~2023-11-20 11:35] MED LIST changes: +PRED20TA PO
[2023-11-20 12:49] LABS: RSV AMPLIFICATION NEGATIVE (NEGATIVE)
[2023-11-20 14:12] LABS: BASO % 0.4 % (0.0-1.0); EOS # 0.1 10^3/uL (0.0-0.5); EOS % 1.4 % (0.0-3.0); HEMATOCRIT 42.7 % (36.0-47.0); HEMOGLOBIN 13.6 g/dl (12.0-15.5); LYMPH # 1.9 10^3/uL (1.5-5.0); LYMPH % 19.4 % (24.0-44.0); MEAN CORPUSCULAR HEMOGLOBIN 29.2 pg (27.0-33.0); MEAN CORPUSCULAR HGB CONC 31.9 g/dl (32.0-36.5); MEAN CORPUSCULAR VOLUME 91.6 fl (80.0-96.0); MONO # 0.8 10^3/uL (0.0-0.8); MONO % 7.7 % (2.0-8.0); NEUTROPHILS % 70.4 % (36.0-66.0); PLATELET COUNT, AUTOMATED 247 10^3/uL (150-450); RED BLOOD COUNT 4.66 10^6/uL (4.00-5.40); WHITE BLOOD COUNT 9.9 10^3/uL (4.0-10.0)
[2023-11-20 14:35] LABS: INR 1.02; PROTHROMBIN TIME 13.1 SECONDS (12.5-14.5)
[2023-11-20 16:10] LABS: ALBUMIN 3.9 G/DL (3.2-5.2); BILIRUBIN,DIRECT 0.2 MG/DL (<0.4); BILIRUBIN,TOTAL 0.9 MG/DL (0.3-1.2); CALCIUM LEVEL 8.2 MG/DL (8.5-10.1); CREATININE FOR GFR 1.1 MG/DL (0.55-1.30); MB/CK RELATIVE INDEX 0.76 (< OR =4); POTASSIUM SERUM 3.6 MMOL/L (3.5-5.1); TOTAL PROTEIN 6.6 G/DL (5.7-8.2)
[2023-11-20] MEDS ORDERED: ISOVUE-370 76% 100ML VIAL As Ordered ONE (16:36)
[2023-11-20 17:33] VITALS: BP 129/77; TEMP 97.7; O2SAT 100
== END 2023-11-20 18:08 | disposition home or self-care (01) ==
LOC: M ED 11:35
DX: R07.9 Chest pain, unspecified (principal); R06.00 Dyspnea, unspecified; Z88.0 Allergy status to penicillin; F43.10 Post-traumatic stress disorder, unspecified; Z79.899 Other long term (current) drug therapy; Z79.52 Long term (current) use of systemic steroids; Z79.51 Long term (current) use of inhaled steroids
CPT/HCPCS: 36415; 71045; 71275; 80048; 80076; 82550; 82553; 83690; 83880; 84484; 85025; 85610; 87631; 93005; 93970; 99284; Q9967

== ENCOUNTER → 2023-11-28 | Outpatient (CLI) | payer MEDICARE | LOC: M RAD 16:34 | PROVIDERS: ATTEND Nurse Practitioner Family | DX: M54.6 Pain in thoracic spine (principal) ==

== ENCOUNTER → 2023-11-28 | Outpatient (CLI) | payer MEDICARE | LOC: M PAIN 15:45 | PROVIDERS: ATTEND Nurse Practitioner Family | DX: M54.6 Pain in thoracic spine (principal); M79.18 Myalgia, other site; F43.10 Post-traumatic stress disorder, unspecified; E03.9 Hypothyroidism, unspecified; G43.709 Chronic migraine without aura, not intractable, without status migrainosus; F32.A Depression, unspecified; F60.3 Borderline personality disorder; I50.9 Heart failure, unspecified; Z79.890 Hormone replacement therapy; Z79.899 Other long term (current) drug therapy; Z88.0 Allergy status to penicillin | CPT/HCPCS: 72072; G0463 ==

== ENCOUNTER → 2024-01-06 | Outpatient (CLI) | payer MEDICARE | LOC: M PAIN 16:00 | PROVIDERS: ATTEND Nurse Practitioner Family | DX: M54.6 Pain in thoracic spine (principal); M79.18 Myalgia, other site; G89.29 Other chronic pain; F43.10 Post-traumatic stress disorder, unspecified; E03.9 Hypothyroidism, unspecified; G43.709 Chronic migraine without aura, not intractable, without status migrainosus; F32.A Depression, unspecified; F60.3 Borderline personality disorder; I50.9 Heart failure, unspecified; Z79.890 Hormone replacement therapy; Z79.899 Other long term (current) drug therapy; Z88.0 Allergy status to penicillin ==

== ENCOUNTER → 2024-01-09 | Outpatient (REF) | payer MEDICARE ==
[2024-01-09 13:24] LABS: ALBUMIN 3.7 G/DL (3.2-5.2); ALKALINE PHOSPHATASE 77 U/L (46-116); ALT/SGPT 16 U/L (7.0-40); AST/SGOT 17 U/L (<34); BILIRUBIN,TOTAL 0.5 MG/DL (0.3-1.2); BLOOD UREA NITROGEN 24 MG/DL (9-23); CALCIUM LEVEL 8.6 MG/DL (8.5-10.1); CARBON DIOXIDE LEVEL 25 MMOL/L (20-31); CHLORIDE LEVEL 106 MMOL/L (98-107); CHOLESTEROL LEVEL 194 MG/DL (<200); CHOLESTEROL RISK RATIO 3.01 (<5); CREATININE FOR GFR 0.95 MG/DL (0.55-1.30); GLOMERULAR FILTRATION RATE > 60.0 (>58); GLUCOSE, FASTING 89 MG/DL (60-100); HDL CHOLESTEROL 64.3 MG/DL (>40); LDL CHOLESTEROL 100.9 MG/DL (<100); NON-HDL-C 129.7 MG/DL; POTASSIUM SERUM 4.1 MMOL/L (3.5-5.1); SODIUM LEVEL 141 MMOL/L (136-145); THYROID STIMULATING HORMONE 3.681 uIU/ML (0.55-4.78); TOTAL PROTEIN 6.1 G/DL (5.7-8.2); TRIGLYCERIDES LEVEL 144 MG/DL (<150)
== END ==
LOC: M LAB REF 11:38
PROVIDERS: ATTEND Family Medicine Addiction Medicine
DX: E03.9 Hypothyroidism, unspecified (principal)

== ENCOUNTER 2024-02-05 16:43 | Emergency (ER) | payer MEDICARE ==
[~2024-02-05] VITALS: Ht 165.1 cm; Wt 111.1 kg
[2024-02-05 17:45] LABS: BASO % 0.3 % (0.0-1.0); EOS # 0.1 10^3/uL (0.0-0.5); EOS % 1.5 % (0.0-3.0); HEMATOCRIT 37.7 % (36.0-47.0); HEMOGLOBIN 12.4 g/dl (12.0-15.5); LYMPH % 34.6 % (24.0-44.0); MEAN CORPUSCULAR HEMOGLOBIN 29.8 pg (27.0-33.0); MEAN CORPUSCULAR HGB CONC 32.9 g/dl (32.0-36.5); MEAN CORPUSCULAR VOLUME 90.6 fl (80.0-96.0); MONO # 0.7 10^3/uL (0.0-0.8); MONO % 7.9 % (2.0-8.0); NEUTROPHILS # 4.8 10^3/uL (1.5-8.5); NEUTROPHILS % 55.2 % (36.0-66.0); PLATELET COUNT, AUTOMATED 283 10^3/uL (150-450); RED BLOOD COUNT 4.16 10^6/uL (4.00-5.40); WHITE BLOOD COUNT 8.7 10^3/uL (4.0-10.0)
[2024-02-05 18:05] LABS: ALBUMIN 3.8 G/DL (3.2-5.2); ALKALINE PHOSPHATASE 67 U/L (46-116); ALT/SGPT 17 U/L (7.0-40); AST/SGOT 9 U/L (<34); BILIRUBIN,DIRECT 0.1 MG/DL (<0.4); BILIRUBIN,TOTAL 0.5 MG/DL (0.3-1.2); BLOOD UREA NITROGEN 17 MG/DL (9-23); CALCIUM LEVEL 8.7 MG/DL (8.5-10.1); CARBON DIOXIDE LEVEL 28 MMOL/L (20-31); CHLORIDE LEVEL 106 MMOL/L (98-107); CREATININE FOR GFR 0.96 MG/DL (0.55-1.30); GLOMERULAR FILTRATION RATE > 60.0 (>58); GLUCOSE, FASTING 83 MG/DL (60-100); POTASSIUM SERUM 3.5 MMOL/L (3.5-5.1); SODIUM LEVEL 141 MMOL/L (136-145); TOTAL PROTEIN 6.3 G/DL (5.7-8.2)
[2024-02-05 20:14] VITALS: BP 140/88; TEMP 97.8; O2SAT 99
[2024-02-05] MEDS: IPRATROPIUM 0.5MG/ALBUTEROL 2.5MG INH SOL UD 3ML (DUONEB) NEB ONE (20:50)
== END 2024-02-05 21:09 | disposition home or self-care (01) ==
LOC: M ED 16:43
DX: J45.901 Unspecified asthma with (acute) exacerbation (principal); R00.1 Bradycardia, unspecified; I44.4 Left anterior fascicular block; I50.22 Chronic systolic (congestive) heart failure; I25.119 Atherosclerotic heart disease of native coronary artery with unspecified angina pectoris; I11.0 Hypertensive heart disease with heart failure; E03.9 Hypothyroidism, unspecified; Z88.0 Allergy status to penicillin; Z79.51 Long term (current) use of inhaled steroids; Z79.52 Long term (current) use of systemic steroids; Z79.899 Other long term (current) drug therapy

== ENCOUNTER → 2024-03-09 | Outpatient (CLI) | payer MEDICARE ==
[~2024-03-09] MED LIST changes: +FLUO-365 PO; -FLUO20CA22 PO
== END ==
LOC: M PAIN 16:00
PROVIDERS: ATTEND Nurse Practitioner Family
DX: M54.6 Pain in thoracic spine (principal); M79.10 Myalgia, unspecified site; F43.10 Post-traumatic stress disorder, unspecified; E03.9 Hypothyroidism, unspecified; G43.709 Chronic migraine without aura, not intractable, without status migrainosus; F32.A Depression, unspecified; F60.3 Borderline personality disorder; I50.9 Heart failure, unspecified; Z79.890 Hormone replacement therapy; Z79.899 Other long term (current) drug therapy; Z88.0 Allergy status to penicillin

== ENCOUNTER → 2024-05-06 | Outpatient (REF) | payer MEDICARE | LOC: M SFHCWAGY 17:14 | PROVIDERS: ATTEND Obstetrics & Gynecology | DX: Z12.4 Encounter for screening for malignant neoplasm of cervix (principal) ==

== ENCOUNTER → 2024-05-27 | Outpatient (CLI) | payer MEDICARE ==
[~2024-05-27] MED LIST changes: +GABA-1490 PO; -GABA600T4 PO
[2024-05-27 18:21] LABS: HEMOGLOBIN 13.1 g/dl (12.0-15.5); MEAN CORPUSCULAR HEMOGLOBIN 29.6 pg (27.0-33.0); MEAN CORPUSCULAR VOLUME 92.8 fl (80.0-96.0); PLATELET COUNT, AUTOMATED 253 10^3/uL (150-450); RED BLOOD COUNT 4.42 10^6/uL (4.00-5.40); WHITE BLOOD COUNT 8.1 10^3/uL (4.0-10.0)
== END ==
LOC: M PLALAB 16:04
PROVIDERS: ATTEND Obstetrics & Gynecology
DX: N93.9 Abnormal uterine and vaginal bleeding, unspecified (principal); Z79.899 Other long term (current) drug therapy

== ENCOUNTER → 2024-06-08 | Outpatient (CLI) | payer MEDICARE ==
[~2024-06-08] MED LIST changes: +GABA-1172 PO; -GABA-282 PO
== END ==
LOC: M PAIN 10:45
PROVIDERS: ATTEND Nurse Practitioner Family
DX: M54.6 Pain in thoracic spine (principal); G89.29 Other chronic pain; F43.10 Post-traumatic stress disorder, unspecified; E03.9 Hypothyroidism, unspecified; G43.709 Chronic migraine without aura, not intractable, without status migrainosus; F32.A Depression, unspecified; F60.3 Borderline personality disorder; M79.7 Fibromyalgia; I50.9 Heart failure, unspecified; N39.46 Mixed incontinence; Z86.718 Personal history of other venous thrombosis and embolism; Z79.890 Hormone replacement therapy; Z79.899 Other long term (current) drug therapy; Z88.0 Allergy status to penicillin

== ENCOUNTER → 2024-06-28 | Outpatient (CLI) | payer MEDICARE | LOC: M PLAIMG 13:00 | PROVIDERS: ATTEND Nurse Practitioner Family | DX: M54.6 Pain in thoracic spine (principal) ==

== ENCOUNTER → 2024-07-08 | Outpatient (CLI) | payer MEDICARE | LOC: M PAIN 17:00 | PROVIDERS: ATTEND Nurse Practitioner Family | DX: M79.18 Myalgia, other site (principal); Z79.891 Long term (current) use of opiate analgesic; G89.29 Other chronic pain; F43.10 Post-traumatic stress disorder, unspecified; E03.9 Hypothyroidism, unspecified; G43.709 Chronic migraine without aura, not intractable, without status migrainosus; F32.A Depression, unspecified; F60.3 Borderline personality disorder; H81.09 Meniere's disease, unspecified ear; I50.9 Heart failure, unspecified; N39.46 Mixed incontinence; Z86.718 Personal history of other venous thrombosis and embolism; Z86.711 Personal history of pulmonary embolism; Z79.890 Hormone replacement therapy; Z79.899 Other long term (current) drug therapy; Z88.0 Allergy status to penicillin ==

== ENCOUNTER → 2024-07-13 | Outpatient (CLI) | payer MEDICARE | LOC: M WHC 13:00 | PROVIDERS: ATTEND Obstetrics & Gynecology | DX: N93.9 Abnormal uterine and vaginal bleeding, unspecified (principal) ==

== ENCOUNTER → 2024-09-14 | Outpatient (CLI) | payer MEDICARE ==
[2024-09-14 11:48] LABS: HEMATOCRIT 37.9 % (36.0-47.0); HEMOGLOBIN 12.4 g/dl (12.0-15.5); MEAN CORPUSCULAR HEMOGLOBIN 29.6 pg (27.0-33.0); MEAN CORPUSCULAR HGB CONC 32.7 g/dl (32.0-36.5); MEAN CORPUSCULAR VOLUME 90.5 fl (80.0-96.0); PLATELET COUNT, AUTOMATED 286 10^3/uL (150-450); RED BLOOD COUNT 4.19 10^6/uL (4.00-5.40); WHITE BLOOD COUNT 9.2 10^3/uL (4.0-10.0)
[2024-09-14 12:21] LABS: ALBUMIN 3.8 G/DL (3.2-5.2); ALKALINE PHOSPHATASE 54 U/L (35-104); ALT/SGPT 19 U/L (7.0-40); AST/SGOT 11 U/L (<34); BILIRUBIN,TOTAL 0.7 MG/DL (0.3-1.2); BLOOD UREA NITROGEN 27 MG/DL (9-23); CALCIUM LEVEL 9.1 MG/DL (8.5-10.1); CARBON DIOXIDE LEVEL 28 MMOL/L (20-31); CHLORIDE LEVEL 103 MMOL/L (98-107); CREATININE FOR GFR 0.89 MG/DL (0.55-1.30); GLOMERULAR FILTRATION RATE > 60.0 (>58); GLUCOSE, FASTING 88 MG/DL (60-100); POTASSIUM SERUM 4.2 MMOL/L (3.5-5.1); SODIUM LEVEL 139 MMOL/L (136-145); TOTAL PROTEIN 6.4 G/DL (5.7-8.2)
== END ==
LOC: M RAD 10:57
PROVIDERS: ATTEND Internal Medicine Cardiovascular Disease
DX: M79.605 Pain in left leg (principal)

== ENCOUNTER 2024-09-29 23:16 | Emergency (ER) | payer MEDICARE ==
[~2024-09-29] VITALS: Ht 165.1 cm; Wt 106.2 kg
[2024-09-29 23:51] VITALS: TEMP 96.4
[2024-09-30] MEDS ORDERED: CLIN150C17 PO (01:26)
[2024-09-30] MEDS: CLINDAMYCIN 150MG CAPSULE PO ONE (01:39)
[2024-09-30] MEDS: PERCOCET 5MG/325MG TAB PO ONE (01:40)
[2024-09-30 01:47] VITALS: BP 152/84; O2SAT 98
== END 2024-09-30 01:52 | disposition home or self-care (01) ==
LOC: M ED 23:16
DX: K04.6 Periapical abscess with sinus (principal); G50.1 Atypical facial pain; I10 Essential (primary) hypertension; Z88.0 Allergy status to penicillin; Z79.51 Long term (current) use of inhaled steroids; Z79.2 Long term (current) use of antibiotics; Z79.899 Other long term (current) drug therapy

== ENCOUNTER → 2024-09-30 | Outpatient (REF) | payer MEDICARE ==
[~2024-09-30] MED LIST changes: +CLIN150C17 PO
== END ==
LOC: M SMT 14:30
PROVIDERS: ATTEND Obstetrics & Gynecology
DX: N93.9 Abnormal uterine and vaginal bleeding, unspecified (principal)

== ENCOUNTER → 2024-10-14 | Outpatient (CLI) | payer MEDICARE, MEDICAID ==
[2024-10-14 13:38] LABS: BASO # 0.1 10^3/uL (0.0-0.2); BASO % 0.5 % (0.0-1.0); EOS # 0.1 10^3/uL (0.0-0.5); EOS % 0.7 % (0.0-3.0); HEMATOCRIT 36.3 % (36.0-47.0); HEMOGLOBIN 11.6 g/dl (12.0-15.5); LYMPH # 1.4 10^3/uL (1.5-5.0); LYMPH % 14.2 % (24.0-44.0); MEAN CORPUSCULAR VOLUME 90.8 fl (80.0-96.0); MONO # 0.8 10^3/uL (0.0-0.8); MONO % 8.3 % (2.0-8.0); NEUTROPHILS # 7.7 10^3/uL (1.5-8.5); NEUTROPHILS % 75.8 % (36.0-66.0); PLATELET COUNT, AUTOMATED 258 10^3/uL (150-450); WHITE BLOOD COUNT 10.2 10^3/uL (4.0-10.0)
[2024-10-14 13:44] LABS: ERYTHROCYTE SEDIMENTATION RATE 9 mm/hr (0-20)
== END ==
LOC: M LAB 12:50
PROVIDERS: ATTEND Family Medicine Addiction Medicine
DX: E03.9 Hypothyroidism, unspecified (principal)

== ENCOUNTER 2024-10-18 09:26 | Emergency (ER) | payer MEDICARE, MEDICAID ==
[~2024-10-18] VITALS: Ht 165.1 cm; Wt 105.8 kg
[2024-10-18 09:34] VITALS: BP 149/89; TEMP 97.9; O2SAT 99
[2024-10-18] MEDS ORDERED: PERI12LIQ (09:41)
[2024-10-18] MEDS ORDERED: CLIN-250 (09:41)
[2024-10-18 10:34] LABS: BASO % 0.4 % (0.0-1.0); EOS # 0.1 10^3/uL (0.0-0.5); EOS % 1.1 % (0.0-3.0); HEMATOCRIT 36.3 % (36.0-47.0); HEMOGLOBIN 11.9 g/dl (12.0-15.5); LYMPH # 1.5 10^3/uL (1.5-5.0); LYMPH % 20.6 % (24.0-44.0); MEAN CORPUSCULAR HEMOGLOBIN 30.1 pg (27.0-33.0); MEAN CORPUSCULAR HGB CONC 32.8 g/dl (32.0-36.5); MEAN CORPUSCULAR VOLUME 91.7 fl (80.0-96.0); MONO # 0.7 10^3/uL (0.0-0.8); MONO % 9.3 % (2.0-8.0); NEUTROPHILS # 4.9 10^3/uL (1.5-8.5); NEUTROPHILS % 68.3 % (36.0-66.0); PLATELET COUNT, AUTOMATED 226 10^3/uL (150-450); RED BLOOD COUNT 3.96 10^6/uL (4.00-5.40); WHITE BLOOD COUNT 7.1 10^3/uL (4.0-10.0)
[2024-10-18 10:39] LABS: ERYTHROCYTE SEDIMENTATION RATE 6 mm/hr (0-20)
[2024-10-18 11:00] LABS: C REACTIVE PROTEIN QUANTITATIV < 0.50 MG/DL (<1.0)
[2024-10-18 11:01] LABS: ALBUMIN 3.8 G/DL (3.2-5.2); ALKALINE PHOSPHATASE 56 U/L (35-104); ALT/SGPT 13 U/L (7.0-40); AST/SGOT 10 U/L (<34); BILIRUBIN,DIRECT 0.1 MG/DL (<0.4); BILIRUBIN,TOTAL 0.5 MG/DL (0.3-1.2); BLOOD UREA NITROGEN 23 MG/DL (9-23); CALCIUM LEVEL 8.9 MG/DL (8.5-10.1); CARBON DIOXIDE LEVEL 26 MMOL/L (20-31); CHLORIDE LEVEL 105 MMOL/L (98-107); CREATININE FOR GFR 0.91 MG/DL (0.55-1.30); GLOMERULAR FILTRATION RATE > 60.0 (>58); GLUCOSE, FASTING 100 MG/DL (60-100); POTASSIUM SERUM 3.7 MMOL/L (3.5-5.1); SODIUM LEVEL 142 MMOL/L (136-145); TOTAL PROTEIN 6.4 G/DL (5.7-8.2)
[2024-10-18 11:12] LABS: PROCALCITONIN <0.04 ng/ml
[2024-10-18] MEDS: GABAPENTIN 300 MG CAP PO ONE (14:04)
[2024-10-18] MEDS ORDERED: ISOVUE-370 76% 100ML VIAL As Ordered ONE (14:11)
[2024-10-18] MEDS ORDERED: MEDR4TAB PO (16:24)
== END 2024-10-18 16:29 | disposition home or self-care (01) ==
LOC: M ED 09:26
DX: R68.84 Jaw pain (principal); I10 Essential (primary) hypertension; E03.9 Hypothyroidism, unspecified; Z88.0 Allergy status to penicillin; Z79.51 Long term (current) use of inhaled steroids; Z79.2 Long term (current) use of antibiotics; Z79.899 Other long term (current) drug therapy
CPT/HCPCS: 36415; 70491; 80048; 80076; 83605; 84145; 84702; 85025; 85652; 86140; 87040; 99283; Q9967

== ENCOUNTER 2024-10-22 08:50 | Observation (INO) | payer MEDICARE ==
[~2024-10-22] VITALS: Ht 165.1 cm; Wt 106.5 kg
[2024-10-22] VITALS (8 sets, daily range): BP systolic 96–113; BP diastolic 58–72; TEMP 97.3–98.1; O2SAT 94–97
[~2024-10-22 08:50] MED LIST changes: +ACETAMINOPHEN 1000MG/100ML IV BAG As Ordered ONE; +CLIN-250; +LIDOCAINE 2% 100MG/5ML SDV (FOR ANES.) As Ordered ONE; +MEDR4TAB PO; +MIDAZOLAM INJ 2MG/2ML VIAL As Ordered ONE; +ONDANSETRON 4MG 2ML VIAL As Ordered ONE; +PERI12LIQ; +ROCURONIUM BROMIDE 50MG/5ML VIAL As Ordered ONE; +fentaNYL 100 MCG/2 ML INJECTION As Ordered ONE; +propofoL 200 MG/20 ML VIAL As Ordered ONE
[2024-10-22] MEDS: METHYLENE BLUE 0.5% (5MG/ML) 10 ML AMP (PROVAYBLUE) As Ordered ONE (09:50)
[2024-10-22] MEDS: ceFAZolin SOD 2 GM in IV 1 EA IV ONE (10:31)
[2024-10-22 10:33] LABS: HEMATOCRIT 34.6 % (36.0-47.0); HEMOGLOBIN 11.2 g/dl (12.0-15.5); MEAN CORPUSCULAR HEMOGLOBIN 29.9 pg (27.0-33.0); MEAN CORPUSCULAR HGB CONC 32.4 g/dl (32.0-36.5); MEAN CORPUSCULAR VOLUME 92.3 fl (80.0-96.0); PLATELET COUNT, AUTOMATED 208 10^3/uL (150-450); RED BLOOD COUNT 3.75 10^6/uL (4.00-5.40)
[2024-10-22] MEDS ORDERED: GLYCOPYRROLATE INJ 0.2 MG/ML 2 ML VIAL As Ordered ONE (10:54)
[2024-10-22] MEDS ORDERED: SUGAMMADEX SODIUM 500 MG/5 ML VIAL (BRIDION) As Ordered ONE (11:42)
[2024-10-22] MEDS ORDERED: KETOROLAC 60MG 2ML VIAL As Ordered ONE (11:42)
[2024-10-22] MEDS: LR 1,000 ML IV SCH ×2 (12:20→14:22)
[2024-10-22] MEDS ORDERED: fentaNYL 100 MCG/2 ML INJECTION IV PRN (12:20)
[2024-10-22] MEDS ORDERED: HYDROMORPHONE HCL 0.5 MG/ 0.5 ML SYRINGE IV PRN (12:20)
[2024-10-22] MEDS ORDERED: ONDANSETRON 4MG 2ML VIAL IV PRN (12:35)
[2024-10-22] MEDS ORDERED: MORPHINE 4 MG/ML 1ML VIAL IV PRN (12:35)
[2024-10-22] MEDS: ONDANSETRON 4MG 2ML VIAL IV PRN (12:41)
[2024-10-22] MEDS: oxyCODONE 5MG TAB PO PRN (12:42)
[2024-10-22] MEDS ORDERED: PERCOCET PO (12:45)
[2024-10-22] MEDS ORDERED: COLA100C5 PO (12:45)
[2024-10-22] MEDS ORDERED: IBUP80TA PO (12:45)
[2024-10-22] MEDS ORDERED: ALBUTEROL 90 MCG/ACT 8GM HFA INHALER INH PRN (12:50)
[2024-10-22 13:53] LABS: HEMATOCRIT 34.7 % (36.0-47.0); HEMOGLOBIN 11.1 g/dl (12.0-15.5); MEAN CORPUSCULAR HEMOGLOBIN 29.8 pg (27.0-33.0); PLATELET COUNT, AUTOMATED 186 10^3/uL (150-450); RED BLOOD COUNT 3.73 10^6/uL (4.00-5.40); WHITE BLOOD COUNT 7.7 10^3/uL (4.0-10.0)
[2024-10-22 14:11] LABS: CREATININE FOR GFR 0.85 MG/DL (0.55-1.30); GLOMERULAR FILTRATION RATE > 60.0 (>58)
[2024-10-22] MEDS ORDERED: LOVE1INJ SC (15:52)
[2024-10-22] MEDS: PERCOCET 5MG/325MG TAB PO PRN (16:18)
[2024-10-22] MEDS: FUROSEMIDE 40 MG TAB PO SCH (17:26)
[2024-10-22] MEDS: KETOROLAC 30 MG/ML 1ML VIAL IV SCH (17:26)
[2024-10-22] MEDS: DOCUSATE SODIUM 100MG CAPSULE PO SCH (20:03)
[2024-10-22] MEDS: ENOXAPARIN 40MG/0.4ML SYRINGE (J1650 PER 10MG) SC SCH (20:04)
[2024-10-23] MEDS: PERCOCET 5MG/325MG TAB PO PRN (03:19)
[2024-10-23 04:00] VITALS: BP 104/60; TEMP 97.2; O2SAT 97
[2024-10-23] MEDS: LEVOTHYROXINE 100MCG TABLET (0.1MG) PO SCH (05:19)
[2024-10-23 08:22] VITALS: BP 106/63; TEMP 97.7; O2SAT 97
[2024-10-23] MEDS: OMEPRAZOLE 20MG CAP PO SCH (08:32)
[2024-10-23] MEDS: POTASSIUM CHLORIDE 10MEQ SR TABLET PO SCH (08:32)
[2024-10-23] MEDS: SPIRONOLACTONE 25 MG TAB PO SCH (08:32)
[2024-10-23 09:00] VITALS: BP 106/62
[2024-10-23] MEDS: METOPROLOL SUCC *XL* 25MG TAB (TopROL *XL*) PO SCH (09:00)
[2024-10-23] MEDS ORDERED: IBUPROFEN 800 MG TAB PO SCH (20:00)
== END 2024-10-23 11:55 | disposition home or self-care (01) ==
LOC: M SDC 08:50 → M RR INP 08:51 → M MS5PR 13:54
PROVIDERS: ADMIT Obstetrics & Gynecology; ATTEND Obstetrics & Gynecology
DX: N80.03 Adenomyosis of the uterus (principal); N83.01 Follicular cyst of right ovary; N73.6 Female pelvic peritoneal adhesions (postinfective); N93.9 Abnormal uterine and vaginal bleeding, unspecified; R10.2 Pelvic and perineal pain; Z68.39 Body mass index [BMI] 39.0-39.9, adult; I50.9 Heart failure, unspecified; Z87.891 Personal history of nicotine dependence; Z88.0 Allergy status to penicillin; Z79.899 Other long term (current) drug therapy
CPT/HCPCS: 36415; 58571; 58662; 81025; 82565; 85027; 86850; 86900; 86901; 88305; 88307; 96372; 96374; 96376; G0378; J0131; J0665; J0690; J1100; J1596; J1650; J1885; J2250; J2405; J3010; Q9968; S2900

== ENCOUNTER 2024-10-24 21:52 | Emergency (ER) | payer MEDICARE ==
[~2024-10-24] VITALS: Ht 165.1 cm; Wt 106.8 kg
[~2024-10-24 21:52] MED LIST changes: -ACETAMINOPHEN 1000MG/100ML IV BAG As Ordered ONE; +COLA100C5 PO; -LIDOCAINE 2% 100MG/5ML SDV (FOR ANES.) As Ordered ONE; +LOVE1INJ SC; -MIDAZOLAM INJ 2MG/2ML VIAL As Ordered ONE; -ONDANSETRON 4MG 2ML VIAL As Ordered ONE; +PERCOCET PO; -ROCURONIUM BROMIDE 50MG/5ML VIAL As Ordered ONE; -fentaNYL 100 MCG/2 ML INJECTION As Ordered ONE; -propofoL 200 MG/20 ML VIAL As Ordered ONE
[2024-10-24 22:37] LABS: BASO # 0.1 10^3/uL (0.0-0.2); BASO % 0.5 % (0.0-1.0); EOS # 0.3 10^3/uL (0.0-0.5); EOS % 2.4 % (0.0-3.0); HEMATOCRIT 38.6 % (36.0-47.0); HEMOGLOBIN 12.3 g/dl (12.0-15.5); LYMPH # 2.7 10^3/uL (1.5-5.0); MEAN CORPUSCULAR HEMOGLOBIN 29.8 pg (27.0-33.0); MEAN CORPUSCULAR HGB CONC 31.9 g/dl (32.0-36.5); MEAN CORPUSCULAR VOLUME 93.5 fl (80.0-96.0); MONO # 0.9 10^3/uL (0.0-0.8); MONO % 8.7 % (2.0-8.0); NEUTROPHILS # 6.5 10^3/uL (1.5-8.5); NEUTROPHILS % 61.6 % (36.0-66.0); PLATELET COUNT, AUTOMATED 247 10^3/uL (150-450); RED BLOOD COUNT 4.13 10^6/uL (4.00-5.40); WHITE BLOOD COUNT 10.5 10^3/uL (4.0-10.0)
[2024-10-24 22:46] LABS: ERYTHROCYTE SEDIMENTATION RATE 15 mm/hr (0-20)
[2024-10-24 22:49] LABS: INR 0.9; PROTHROMBIN TIME 12.5 SECONDS (12.5-14.5)
[2024-10-24 23:10] LABS: C REACTIVE PROTEIN QUANTITATIV 1.09 MG/DL (<1.0); CALCIUM LEVEL 8.7 MG/DL (8.5-10.1); CREATININE FOR GFR 1.12 MG/DL (0.55-1.30); GLOMERULAR FILTRATION RATE 56.5 (>58)
[2024-10-24 23:52] VITALS: BP 127/76; TEMP 97.3; O2SAT 99
== END 2024-10-24 23:55 | disposition home or self-care (01) ==
LOC: M ED 21:52
DX: R22.43 Localized swelling, mass and lump, lower limb, bilateral (principal); I10 Essential (primary) hypertension; K21.9 Gastro-esophageal reflux disease without esophagitis; J45.909 Unspecified asthma, uncomplicated; G43.909 Migraine, unspecified, not intractable, without status migrainosus; F10.10 Alcohol abuse, uncomplicated; F43.10 Post-traumatic stress disorder, unspecified; Z87.42 Personal history of other diseases of the female genital tract; Z86.711 Personal history of pulmonary embolism; Z88.0 Allergy status to penicillin; Z88.8 Allergy status to other drugs, medicaments and biological substances; Z79.52 Long term (current) use of systemic steroids; Z79.1 Long term (current) use of non-steroidal anti-inflammatories (NSAID); Z79.899 Other long term (current) drug therapy

== ENCOUNTER → 2024-11-05 | Outpatient (REF) | payer MEDICARE | LOC: M SFHCWAGY 12:46 | PROVIDERS: ATTEND Obstetrics & Gynecology | DX: N30.00 Acute cystitis without hematuria (principal) ==

== ENCOUNTER 2025-04-03 12:02 | Emergency (ER) | payer MEDICARE ==
[~2025-04-03] VITALS: Ht 165.1 cm; Wt 108.7 kg
[~2025-04-03 12:02] MED LIST changes: +LIDO1ADH93 TOP; -LIDO5DIS41 TOP
[2025-04-03 12:14] VITALS: TEMP 97.4
[2025-04-03 13:43] LABS: BASO # 0.0 10^3/uL (0.0-0.2); BASO % 0.6 % (0.0-1.0); EOS # 0.1 10^3/uL (0.0-0.5); EOS % 1.8 % (0.0-3.0); LYMPH # 1.4 10^3/uL (1.5-5.0); LYMPH % 20.6 % (24.0-44.0); MONO # 0.6 10^3/uL (0.0-0.8); MONO % 8.9 % (2.0-8.0); NEUTROPHILS # 4.6 10^3/uL (1.5-8.5); NEUTROPHILS % 67.8 % (36.0-66.0); PLATELET COUNT, AUTOMATED 203 10^3/uL (150-450)
[2025-04-03 14:10] LABS: CALCIUM LEVEL 8.4 MG/DL (8.5-10.1); CARBON DIOXIDE LEVEL 29.0 MMOL/L (20-31); CHLORIDE LEVEL 103.0 MMOL/L (98-107); CK-MB VALUE MASS 1.3 NG/ML (<3.6); CREATININE FOR GFR 0.88 MG/DL (0.55-1.30); GLOMERULAR FILTRATION RATE 83.1 (>58); POTASSIUM SERUM 4.5 MMOL/L (3.5-5.1); SODIUM LEVEL 140.0 MMOL/L (136-145)
[2025-04-03] MEDS ORDERED: ISOVUE-370 76% 100 ML VIAL As Ordered ONE (14:19)
[2025-04-03 14:29] LABS: CPK CREATINE PHOSPHOKINASE 151.0 U/L (34-145); MB/CK RELATIVE INDEX 0.86 (< OR =4)
[2025-04-03 16:16] LABS: CK-MB VALUE MASS 1.8 NG/ML (<3.6)
[2025-04-03 16:21] LABS: CPK CREATINE PHOSPHOKINASE 172 U/L (34-145); MB/CK RELATIVE INDEX 1.04 (< OR =4)
[2025-04-03] MEDS: KETOROLAC 30 MG/ML 1 ML VIAL IV ONE (19:50)
[2025-04-04 00:30] VITALS: BP 133/74; O2SAT 98
== END 2025-04-04 00:59 | disposition home or self-care (01) ==
LOC: M ED 12:02
DX: R07.9 Chest pain, unspecified (principal); M54.9 Dorsalgia, unspecified; I50.9 Heart failure, unspecified; E03.9 Hypothyroidism, unspecified; J45.909 Unspecified asthma, uncomplicated; Z88.0 Allergy status to penicillin; Z88.8 Allergy status to other drugs, medicaments and biological substances; Z79.899 Other long term (current) drug therapy; Z79.1 Long term (current) use of non-steroidal anti-inflammatories (NSAID); Z79.890 Hormone replacement therapy
CPT/HCPCS: 71045; 71275; 80048; 82550; 82553; 83880; 84484; 85025; 93005; 93041; 94760; 96374; 96375; 99285; J1885; Q9967

== ENCOUNTER → 2025-04-05 | Outpatient (CLI) | payer MEDICARE | LOC: M RAD 16:07 | PROVIDERS: ATTEND Family Medicine Addiction Medicine | DX: M50.30 Other cervical disc degeneration, unspecified cervical region (principal); R07.89 Other chest pain; M41.34 Thoracogenic scoliosis, thoracic region ==

== ENCOUNTER → 2025-06-10 | Outpatient (CLI) | payer MEDICARE | LOC: M PLARAD 10:28 | PROVIDERS: ATTEND Pain Medicine Interventional Pain Medicine | DX: M54.16 Radiculopathy, lumbar region (principal); M54.12 Radiculopathy, cervical region; M51.360 Other intervertebral disc degeneration, lumbar region with discogenic back pain only; M50.30 Other cervical disc degeneration, unspecified cervical region; M40.50 Lordosis, unspecified, site unspecified ==

== ENCOUNTER → 2025-07-22 | Outpatient (REF) | payer MEDICARE ==
[2025-07-22 16:50] LABS: BASO # 0.0 10^3/uL (0.0-0.2); BASO % 0.5 % (0.0-1.0); EOS # 0.1 10^3/uL (0.0-0.5); EOS % 1.3 % (0.0-3.0); LYMPH # 1.9 10^3/uL (1.5-5.0); LYMPH % 25.0 % (24.0-44.0); MONO # 0.6 10^3/uL (0.0-0.8); MONO % 7.3 % (2.0-8.0); NEUTROPHILS # 5.0 10^3/uL (1.5-8.5); NEUTROPHILS % 65.5 % (36.0-66.0); PLATELET COUNT, AUTOMATED 277 10^3/uL (150-450)
[2025-07-22 16:53] LABS: CALCIUM LEVEL 8.3 MG/DL (8.5-10.1); CARBON DIOXIDE LEVEL 28.0 MMOL/L (20-31); CHLORIDE LEVEL 103.0 MMOL/L (98-107); CREATININE FOR GFR 1.13 MG/DL (0.55-1.30); GLOMERULAR FILTRATION RATE 61.5 (>58); IRON (FE) 114.0 UG/DL (50-170); MAGNESIUM LEVEL 2.0 MG/DL (1.8-2.4); POTASSIUM SERUM 4.2 MMOL/L (3.5-5.1); SODIUM LEVEL 142.0 MMOL/L (136-145)
== END ==
LOC: M LAB REF 16:15
PROVIDERS: ATTEND Family Medicine Addiction Medicine
DX: R25.2 Cramp and spasm (principal)